=== PATIENT | male | born 1955 | race Caucasian/White ===

== ENCOUNTER → 2019-02-08 08:23 | Outpatient (CLI) | payer BC, SELFPAY ==
[2019-02-08 09:02] LABS: Add Manual Diff / Slide Review NO; Basophils Absolute Auto 0 /uL (0-100); Basophils Percent Auto 0.7 % (0-2); Eosinophils Absolute Auto 200 /uL (0-450); Eosinophils Percent Auto 3.8 % (2-4); Hematocrit 44.7 % (41-53); Hemoglobin 15.5 g/dL (13.5-17.5); Lymphocytes Absolute Auto 1900 /uL (1100-4500); Lymphocytes Percent Auto 43.8 % (25-40); Mean Corpuscular HGB Conc 34.7 % (30-36); Mean Corpuscular Hemoglobin 33.2 PG (26-34); Mean Corpuscular Volume 95.7 fL (80-100); Monocytes Absolute Auto 500 /uL (0-900); Monocytes Percent Auto 12.1 % (3-14); Neutrophils Absolute Auto 1700 /uL (1500-7000); Neutrophils Percent Auto 39.6 % (50-75); Platelet Count 189 X10^3/uL (150-400); Red Blood Cell Count 4.67 X10^6/uL (4.5-5.9); Red Cell Distribution Width 13.6 % (11.6-14.8); White Blood Cell Count 4.3 X10^3/uL (4.5-11.0)
[2019-02-08 09:03] LABS: Hemoglobin A1C% w Est Avg Glu 7.1 % (4.0-6.0)
[2019-02-08 09:27] LABS: Alanine Aminotransferase 32 IU/L (<50); Albumin 4.5 g/dL (3.5-5.0); Albumin Globulin Ratio 1.3 (1.0-2.8); Alkaline Phosphatase 74 U/L (38-126); Aspartate Aminotransferase 29 IU/L (17-59); BUN Creatinine Ratio 17.8 (6-22); Bilirubin Total 0.7 mg/dL (0.2-1.3); Blood Urea Nitrogen 16 mg/dL (9-20); Calcium 9.6 mg/dL (8.4-10.2); Carbon Dioxide 28 mmol/L (22-32); Chloride 105 mmol/L (98-107); Cholesterol 208 mg/dL (140-199); Estimated Glomerular Filt Rate > 60.0 mL/min (>60); Globulin 3.5 g/dL (1.7-4.1); Glucose 173 mg/dL (80-110); HDL Cholesterol 50 mg/dL (40-60); HEMOLYSIS < 15 (0-50); LDL Cholesterol Calculated 145 mg/dL (<100); Potassium 4.6 mmol/L (3.4-5.1); Sodium 140 mmol/L (137-145); Triglycerides 67 mg/dL (35-150)
[2019-02-11 17:46] LABS: Insulin Level Total 11.9 uIU/mL (2.0-19.6)
== END ==
PROVIDERS: PCP Naturopath; Visit Provider Naturopath
DX: Z00.00 Encounter for general adult medical examination without abnormal findings (principal); I10 Essential (primary) hypertension; E11.9 Type 2 diabetes mellitus without complications
CPT/HCPCS: 36415; 80053; 80061; 83036; 83525; 85025

== ENCOUNTER 2019-03-06 07:28 | Emergency (ER) | payer BC, SELFPAY ==
[2019-03-06 07:36] VITALS: BP 142/86; PULSE 115; RESP 16; TEMP 36.4; O2SAT 99; BMI 32.3
--- NOTE | 2019-03-06 07:40 | ED_ITS ---
HPI - Abdominal Pain General Chief Complaint: Abdominal Pain Stated Complaint: rt side pain from back to stomach Time Seen by Provider: 03/06/19 07:33 Source: patient Mode of arrival: Ambulatory Limitations: no limitations History of Present Illness HPI narrative: Patient is a 63-year-old male with history of diabetes and hypertension who presents with right upper quadrant pain ongoing for last few days. He says it started is back in radiating around to his stomach. It's not in his lower abdomen he has no groin pain no hematuria. He says the pain now is fairly constant he denies any nausea or vomiting or fevers. He intermittently gets right-sided chest pain but currently does not have right-sided chest pain. Of note his left face is drooping. He cannot tell me if this is old or new. He states that yesterday he was driving and just felt sort of funny he thought maybe was having a stroke but he had no weakness numbness tingling in his extremities. He was able to continue driving. He has not noticed that he had any sort of new left facial droop denies any headache. MD complaint: abdominal pain Pain Consistency: constant Location: RUQ Quality: sharp Radiation: none Related Data Allergies Allergy/AdvReac Type Severity Reaction Status Date / Time No Known Drug Allergies Allergy Verified 03/06/19 07:36 Review of Systems Review of Systems ROS Unobtainable: All systems reviewed & are unremarkable except as noted in HPI and below Constitutional Constitutional: Denies chills, Denies fever(s), Denies lethargy and Denies weakness Eyes Eyes: Denies change in vision, Denies eye discharge, Denies irritation and Denies loss of vision ENT Ears, Nose, Mouth, and Throat: Denies change in voice, Denies neck pain and Denies sore throat Cardiovascular Cardiovascular: Reports chest pain (Intermittent right-sided pain none now), Denies irregular heart rhythm, Denies lightheadedness and Denies dyspnea Respiratory Respiratory: Denies dyspnea Gastrointestinal Gastrointestinal: Reports as per HPI, Reports abdominal pain, Denies diarrhea, Denies nausea and Denies vomiting Genitourinary Genitourinary: Denies hematuria, Denies flank pain, Denies urinary incontinence and Denies urinary urgency Musculoskeletal Musculoskeletal: Denies neck pain Integumentary/Breasts Skin/Breast: Denies pruritus, Denies erythema, Denies rash and Denies wounds Neurologic Neurologic: Denies loss of vision and Denies weakness Patient History Medical History Diabetes (Acute) Hypertension (Acute) Social History Smoking Status: Current every day smoker Smoking Status: Current every day smoker Substance Use Type: does not use Exam Initial Vital Signs Initial Vital Signs: Vital Signs Temperature 97.6 F 03/06/19 07:36 Pulse Rate 115 H 03/06/19 07:36 Respiratory Rate 16 03/06/19 07:36 Blood Pressure 142/86 H 03/06/19 07:36 Pulse Oximetry 99 03/06/19 07:36 GENERAL: Well-appearing, well-nourished and in no acute distress. HEENT: Head atraumatic,EOMI, pupils reactive, left facial droop-mild CARDIOVASCULAR: Regular rate and rhythm without murmurs, rubs or gallops. RESPIRATORY: Breath sounds equal bilaterally, no wheezes rales or rhonchi. ABDOMEN: Soft, tender right upper quadrant negative Sherman sign no guarding no rebound : No CVA tenderness EXTREMITIES: Normal range of motion, no clubbing or edema. Neurovascularly intact NEUROLOGICAL: Alert and oriented x4.Normal gait and speech. Cranial nerves II through XII grossly intact. Good [id number], good [id number], strength equal bilaterally, no dysarthria or aphasia, sensation in tact to soft touch bilaterally, no visual changes, no facial droop SKIN: Warm, dry, no laceration, no petechiae, no rashes or lesions. Scores NIH Stroke Scale Level of Conciousness: Alert, keenly responsive Ask month/age: Answers both questions correctly. Open/close eyes, close hand: Performs both tasks correctly Best gaze horizontal: Normal Visual singh: No visual loss Facial palsy: Minor paralysis, flattened nasolabial fold, asymmetry on smiling Left arm drift: No drift for full 10 sec Right arm drift: No drift for full 10 sec Left leg drift: No drift for full 10 sec Right leg drift: No drift for full 10 sec Limb ataxia: Absent Sensory on face/arms/legs: Normal, no sensory loss Best language: No aphasia, normal Dysarthria: Normal Extinction or inattention: No abnormality Total NIH Stroke scale score: 1 Course Orders Ordered: ED Orders 03/06/19 07:47 CT head/brain wo con Stat US abdomen limited Stat 03/06/19 07:48 XR chest 1V Stat EKG-12 Lead Stat 03/06/19 08:05 Complete Blood Count AUTO DIFF Stat Comprehensive Metabolic Panel Stat Lipase Stat Troponin & CK Cardiac Panel Stat 03/06/19 09:23 CT chest abd pel w con Stat Discontinued Medications Aspirin (Aspirin Chew) 324 mg PO NOW ONE Stop: 03/06/19 07:48 Last Admin: 03/06/19 07:55 Dose: 324 mg Documented by: YANCY Sodium Chloride (Normal Saline 0.9%) 1,000 mls @ 150 mls/hr IV CONT CINDI Last Admin: 03/06/19 07:56 Dose: 150 mls/hr Documented by: YANCY Ketorolac Tromethamine (Toradol) 15 mg IV NOW ONE Stop: 03/06/19 08:56 Vital Signs Vital signs: Vital Signs - 8 hr 03/06/19 07:36 03/06/19 08:24 03/06/19 10:00 Temperature 97.6 F Pulse Rate 115 H 104 H 97 H Respiratory Rate 16 20 20 Blood Pressure 142/86 H Blood Pressure [Right Arm] 105/64 133/89 Pulse Oximetry 99 98 100 MDM - Abdominal Pain Lab Data Attestation: I reviewed the patient's lab results. Result diagrams: 03/06/19 08:05 03/06/19 08:05 Labs: Lab Results 03/06/19 03/06/19 Range/Units 08:05 08:05 WBC 4.6 (4.5-11.0) X10^3/uL RBC 4.54 (4.5-5.9) X10^6/uL Hgb 15.0 (13.5-17.5) g/dL Hct 43.2 (41-53) % MCV 95.3 (80-100) fL MCH 33.1 (26-34) PG MCHC 34.7 (30-36) % RDW 13.2 (11.6-14.8) % Plt Count 212 (150-400) X10^3/uL Neut % (Auto) 39.4 L (50-75) % Lymph % (Auto) 44.3 H (25-40) % Catron % (Auto) 11.2 (3-14) % Eos % (Auto) 4.3 H (2-4) % Baso % (Auto) 0.8 (0-2) % Neut # (Auto) 1800 (5785-4299) /uL Lymph # (Auto) 2100 (3275-3435) /uL Catron # (Auto) 500 (0-900) /uL Eos # (Auto) 200 (0-450) /uL Baso # (Auto) 0 (0-100) /uL Sodium 139 (137-145) mmol/L Potassium 4.1 (3.4-5.1) mmol/L Chloride 101 (98-107) mmol/L Carbon Dioxide 28 (22-32) mmol/L BUN 17 (9-20) mg/dL Creatinine 1.00 (0.66-1.25) mg/dL Estimated GFR > 60.0 (>60) mL/min BUN/Creatinine Ratio 17.0 (6-22) Glucose 238 H (80-110) mg/dL Calcium 9.5 (8.4-10.2) mg/dL Total Bilirubin 0.4 (0.2-1.3) mg/dL AST 28 (17-59) IU/L ALT 28 (<50) IU/L Alkaline Phosphatase 70 (38-126) U/L Total Creatine Kinase 50 L (55-170) U/L CK-MB (CK-2) TNP CK-MB (CK-2) Rel Index TNP Troponin I < 0.012 (0.01-0.034) ng/mL Total Protein 7.5 (6.3-8.2) g/dL Albumin 4.4 (3.5-5.0) g/dL Globulin 3.1 (1.7-4.1) g/dL Albumin/Globulin Ratio 1.4 (1.0-2.8) Lipase 154 (23-300) U/L Point of care testing: Urine Dip Bedside Urine Glucose 1000 mg/dl Bedside Urine Ketone - Negative Urine Specific [place] 1.015 Bedside Urine Occult Blood - Negative Bedside Urine pH 6.5 Bedside Urine Protein +/- 15 Bedside Urine Urobilinogen +/- 1mg Bedside Urine Nitrite - Negative Bedside Urine Leukocytes - Negative Esterase Imaging Data US - abdomen: Radiologist's impression: PROCEDURE: US ABDOMEN LIMITED INDICATIONS: RIGHT UPPER QUADRANT PAIN TECHNIQUE: Real-time scanning was performed of the abdominal and retroperitoneal organs, with image documentation. COMPARISON: None. FINDINGS: Liver: The liver measures 16.8 cm in length and demonstrates increased echogenicity. Gallbladder: The gallbladder wall measures 2.2 mm in diameter. The gallbladder is mildly contracted. No pericholecystic fluid or sonographic Sherman's sign. Biliary ducts: Intrahepatic bile ducts are non-dilated. Extrahepatic bile duct caliber measures 3.2 mm. Normal is 6-7 mm or less in diameter, or 10 mm or less post-cholecystectomy. Pancreas: Pancreas is nonvisualized due to overlying bowel gas. IMPRESSION: 1. Contracted gallbladder. No cholelithiasis or findings to suggest choledocholithiasis or acute cholecystitis. 2. Increased hepatic echogenicity noted likely related to fatty infiltration of the liver but other sources of hepatocellular disease cannot be excluded. Dictated by: Priscilla Baez M.D. on 03/06/2019 at 8:30 Approved by: Priscilla Baez M.D. on 03/06/2019 at 8:3 Chest x-ray: Radiologist's impression: Interstitial prominence, suspect prior smoking history. Possible lung mass right lung base measuring 2.3 by would 3.1 cm deep inspiratory PA and lateral chest plain film is recommended for more accurate assessment. Follow-up CT scanning with contrast may become necessary depending on that study CT scan - abdomen: Radiologist's impression: PROCEDURE: CT CHEST ABD PEL W CON INDICATIONS: mass right lung and right sided ab pain TECHNIQUE: After the administration of intravenous contrast, 5 mm thick sections acquired from the lung apices to the symphysis. 5 mm coronal and sagittal reformats were performed, with additional 7 mm MIP reformats through the lungs. For radiation dose reduction, the following was used: automated exposure control, adjustment of mA and/or kV according to patient size. COMPARISON: None. FINDINGS: Image quality: Excellent. CHEST: Lungs and pleura: Postoperative changes are present within the right upper lobe. A 1.1 cm pulmonary nodule is present at the medial right lung base (series 3, image [id number] 37). Multiple subcentimeter intra-fissural nodules are present within the right oblique fissure. There is a small low density right pleural effusion. Mediastinum: Heart size is normal. No pericardial effusion. No mediastinal or hilar adenopathy by size criteria. Thoracic aorta and central pulmonary arteries are normal in size. Scattered atheromatous calcifications are present within the aortic arch. Esophagus is normal in caliber. No hiatal hernia. Chest wall: No axillary or supraclavicular adenopathy by size criteria. Thyroid gland is unremarkable. ABDOMEN: Solid organs: Liver is normal in size and enhancement. Gallbladder is unremarkable. Biliary system is non dilated. Pancreas enhances normally. Spleen is normal in size and enhancement. No right adrenal nodules. There is a small intermediate density left adrenal gland nodule which is incompletely characterized. Kidneys demonstrate normal size and enhancement, without hydronephrosis. Peritoneum and bowel: Bowel loops demonstrate normal wall thickness and caliber. The appendix is not visualized; however there is no discrete right lower quadrant fluid or fat stranding to suggest acute appendicitis. There are scattered sigmoid diverticula. No evidence for diverticulitis. No free fluid or air. Nodes and vessels: No retroperitoneal or mesenteric adenopathy by size criteria. Aorta and inferior vena cava are normal in size. There are scattered atheromatous calcifications throughout the aorta and iliac arteries bilaterally. Miscellaneous: No ventral hernias. PELVIS: Genitourinary: Bladder wall thickness is normal. Miscellaneous: No inguinal adenopathy. There is a small fat containing left inguinal hernia. Bones: No suspicious bony lesions. No vertebral body compression fractures. IMPRESSION: 1. Right pulmonary nodules as above. No prior comparisons are available at the time of this dictation to characterize the acuity of these findings. If prior CTs are available, comparison could be made and an addendum could be issued. Neoplasm cannot be excluded. 2. Small right pleural effusion. 3. No acute intra-abdominal findings. The appendix is not visualized; however there are no ancillary signs to suggest acute appendicitis. Diverticulosis. No acute diverticulitis. Dictated by: Priscilla Baez M.D. on 03/06/2019 at 9:20 ECG Data Attestation: I personally reviewed and interpreted this ECG as follows: Prior ECG tracings: not available for review Interpretation: Sinus rhythm rate [address] elevation depression or T-wave inversion Q-wave noted in lead 3 only no priors to compare MDM Narrative Medical decision making narrative: The patient is noted to have pulmonary nodules are he will need outpatient follow-up no cause of abdominal pain noted t beryl. He does have left-sided droop possibly new, he did remember having left leg tingling at the time all completely resolved. Possible TIA. Recommend aspirin 81 mg daily. No cause of abdominal pain is identified on ultrasound or CT. Initial chest x- ray did show questionable lung mass however CT did not show a mass but did show pulmonary nodules. At this time I strongly recommend that patient follow-up with his PCP. Overall his abdominal pain is better after aspirin and. Discharge Plan Departure Patient Disposition: Home Clinical Impression: Brain TIA, Multiple pulmonary nodules Abdominal pain Qualifiers: Abdominal location: right upper quadrant Qualified Code(s): R10.11 - Right upper quadrant pain Discharge Date/Time: 03/06/19 11:08 Instructions: DI for Transient Ischemic Attack, DI for Abdominal Pain-Adult Activity Restrictions/Additional Instructions: *You have been diagnosed with abdominal pain, pulmonary nodule possible mini- stroke called TIA *What to do: At this time it is unknown what is causing her abdominal pain. Ultrasound and CT were negative. You were incidentally found to have pulmonary nodules in year old switch need to be followed with your primary care provider. He may require further testing and this may or may not be the cause of your right-sided chest pain. You also may have had a mini stroke yesterday. You may also require further outpatient testing such as MRI and carotid Dopplers along with echocardiogram please see your primary care provider in regards to this test *Continue to take medications as directed Aspirin 81 mg once a day-this is to help prevent stroke and heart attack *Follow up with your primary care provider in 2-3 days *Return to ER if you should have increasing weakness, facial droop difficulty speaking numbness tingling, chest pain shortness of breath abdominal pain or any new, worsening or concerning symptoms Referrals: Rocío Herbert ND [Primary Care Provider] -
--- NOTE | 2019-03-06 07:47 | DI.US.S_ITS ---
PROCEDURE: US ABDOMEN LIMITED INDICATIONS: RIGHT UPPER QUADRANT PAIN TECHNIQUE: Real-time scanning was performed of the abdominal and retroperitoneal organs, with image documentation. COMPARISON: None. FINDINGS: Liver: The liver measures 16.8 cm in length and demonstrates increased echogenicity. Gallbladder: The gallbladder wall measures 2.2 mm in diameter. The gallbladder is mildly contracted. No pericholecystic fluid or sonographic Sherman's sign. Biliary ducts: Intrahepatic bile ducts are non-dilated. Extrahepatic bile duct caliber measures 3.2 mm. Normal is 6-7 mm or less in diameter, or 10 mm or less post-cholecystectomy. Pancreas: Pancreas is nonvisualized due to overlying bowel gas. IMPRESSION: 1. Contracted gallbladder. No cholelithiasis or findings to suggest choledocholithiasis or acute cholecystitis. 2. Increased hepatic echogenicity noted likely related to fatty infiltration of the liver but other sources of hepatocellular disease cannot be excluded. Dictated by: Priscilla Baez M.D. on 03/06/2019 at 8:30 Approved by: Priscilla Baez M.D. on 03/06/2019 at 8:31
--- NOTE | 2019-03-06 07:47 | DI.CT.S_ITS ---
PROCEDURE: CT HEAD/BRAIN WO CON INDICATIONS: left facial droop, non tpa TECHNIQUE: Noncontrast 4.5 mm thick angled axial sections acquired from the foramen magnum to the vertex, with coronal and sagittal reformats. For radiation dose reduction, the following was used: automated exposure control, adjustment of mA and/or kV according to patient size. COMPARISON: None. FINDINGS: Image quality: Excellent. CSF spaces: Basal cisterns are patent. No extra-axial fluid collections. Ventricles are normal in size and shape. Brain: No midline shift. No intracranial masses or hemorrhage. Davidson-white matter interface is normal. Skull and face: Calvarium and visualized facial bones are intact, without suspicious lesions. Sinuses: Visualized sinuses and mastoids are clear. IMPRESSION: 1. No acute intracranial findings. Dictated by: Priscilla Baez M.D. on 03/06/2019 at 7:26 Approved by: Priscilla Baez M.D. on 03/06/2019 at 7:28
--- NOTE | 2019-03-06 07:48 | DI.RAD.S_ITS ---
PROCEDURE: XR CHEST 1V INDICATIONS: right sided chest pain TECHNIQUE: One view of the chest was acquired. COMPARISON: None. FINDINGS: Surgical changes and devices: None. Lungs and pleura: Lungs are abnormal with a generalized interstitial prominence perhaps reflecting a smoking history and the inferior border of the lower third of the right hilum there is a radiodensity of concern measuring 2.3 x 3.1 cm, potentially a lung mass.. No pleural effusions or pneumothorax. Mediastinum: Mediastinal contours appear normal. Heart size is normal. Bones and chest wall: No suspicious bony lesions. Overlying soft tissues appear unremarkable. IMPRESSION: Interstitial prominence, suspect prior smoking history. Possible lung mass right lung base measuring 2.3 x 3.1 cm. Deep inspiratory PA and lateral chest plain film is recommended for more accurate assessment. Followup CT scanning with contrast may become necessary depending on that study. Dictated by: Eduardo Ingram M.D. on 03/06/2019 at 9:09 Approved by: Eduardo Ingram M.D. on 03/06/2019 at 9:10
[2019-03-06] MEDS: ASPIRIN 81 MG CHEW TAB 324 MG PO (07:55)
[2019-03-06] MEDS: SODIUM CHLORIDE 0.9% 1,000 ML 150 ML IV (07:56)
[2019-03-06 08:17] LABS: Add Manual Diff / Slide Review NO; Basophils Absolute Auto 0 /uL (0-100); Basophils Percent Auto 0.8 % (0-2); Eosinophils Absolute Auto 200 /uL (0-450); Eosinophils Percent Auto 4.3 % (2-4); Hematocrit 43.2 % (41-53); Lymphocytes Absolute Auto 2100 /uL (1100-4500); Lymphocytes Percent Auto 44.3 % (25-40); Mean Corpuscular HGB Conc 34.7 % (30-36); Mean Corpuscular Hemoglobin 33.1 PG (26-34); Mean Corpuscular Volume 95.3 fL (80-100); Monocytes Absolute Auto 500 /uL (0-900); Monocytes Percent Auto 11.2 % (3-14); Neutrophils Absolute Auto 1800 /uL (1500-7000); Neutrophils Percent Auto 39.4 % (50-75); Platelet Count 212 X10^3/uL (150-400); Red Blood Cell Count 4.54 X10^6/uL (4.5-5.9); Red Cell Distribution Width 13.2 % (11.6-14.8); White Blood Cell Count 4.6 X10^3/uL (4.5-11.0)
[2019-03-06 08:24] VITALS: BP 105/64; PULSE 104; RESP 20; O2SAT 98
[2019-03-06 08:27] LABS: Alanine Aminotransferase 28 IU/L (<50); Albumin 4.4 g/dL (3.5-5.0); Albumin Globulin Ratio 1.4 (1.0-2.8); Alkaline Phosphatase 70 U/L (38-126); Aspartate Aminotransferase 28 IU/L (17-59); Bilirubin Total 0.4 mg/dL (0.2-1.3); Blood Urea Nitrogen 17 mg/dL (9-20); Calcium 9.5 mg/dL (8.4-10.2); Carbon Dioxide 28 mmol/L (22-32); Chloride 101 mmol/L (98-107); Creatine Kinase 50 U/L (55-170); Estimated Glomerular Filt Rate > 60.0 mL/min (>60); Globulin 3.1 g/dL (1.7-4.1); Glucose 238 mg/dL (80-110); HEMOLYSIS 23 (0-50); Lipase 154 U/L (23-300); Potassium 4.1 mmol/L (3.4-5.1); Sodium 139 mmol/L (137-145); Total Protein 7.5 g/dL (6.3-8.2)
[2019-03-06 08:39] LABS: Troponin I < 0.012 ng/mL (0.01-0.034)
--- NOTE | 2019-03-06 09:23 | DI.CT.S_ITS ---
PROCEDURE: CT CHEST ABD PEL W CON INDICATIONS: mass right lung and right sided ab pain TECHNIQUE: After the administration of intravenous contrast, 5 mm thick sections acquired from the lung apices to the symphysis. 5 mm coronal and sagittal reformats were performed, with additional 7 mm MIP reformats through the lungs. For radiation dose reduction, the following was used: automated exposure control, adjustment of mA and/or kV according to patient size. COMPARISON: None. FINDINGS: Image quality: Excellent. CHEST: Lungs and pleura: Postoperative changes are present within the right upper lobe. A 1.1 cm pulmonary nodule is present at the medial right lung base (series 3, image [id number]). Multiple subcentimeter intra-fissural nodules are present within the right oblique fissure. There is a small low density right pleural effusion. Mediastinum: Heart size is normal. No pericardial effusion. No mediastinal or hilar adenopathy by size criteria. Thoracic aorta and central pulmonary arteries are normal in size. Scattered atheromatous calcifications are present within the aortic arch. Esophagus is normal in caliber. No hiatal hernia. Chest wall: No axillary or supraclavicular adenopathy by size criteria. Thyroid gland is unremarkable. ABDOMEN: Solid organs: Liver is normal in size and enhancement. Gallbladder is unremarkable. Biliary system is non dilated. Pancreas enhances normally. Spleen is normal in size and enhancement. No right adrenal nodules. There is a small intermediate density left adrenal gland nodule which is incompletely characterized. Kidneys demonstrate normal size and enhancement, without hydronephrosis. Peritoneum and bowel: Bowel loops demonstrate normal wall thickness and caliber. The appendix is not visualized; however there is no discrete right lower quadrant fluid or fat stranding to suggest acute appendicitis. There are scattered sigmoid diverticula. No evidence for diverticulitis. No free fluid or air. Nodes and vessels: No retroperitoneal or mesenteric adenopathy by size criteria. Aorta and inferior vena cava are normal in size. There are scattered atheromatous calcifications throughout the aorta and iliac arteries bilaterally. Miscellaneous: No ventral hernias. PELVIS: Genitourinary: Bladder wall thickness is normal. Miscellaneous: No inguinal adenopathy. There is a small fat containing left inguinal hernia. Bones: No suspicious bony lesions. No vertebral body compression fractures. IMPRESSION: 1. Right pulmonary nodules as above. No prior comparisons are available at the time of this dictation to characterize the acuity of these findings. If prior CTs are available, comparison could be made and an addendum could be issued. Neoplasm cannot be excluded. 2. Small right pleural effusion. 3. No acute intra-abdominal findings. The appendix is not visualized; however there are no ancillary signs to suggest acute appendicitis. Diverticulosis. No acute diverticulitis. Dictated by: Priscilla Baez M.D. on 03/06/2019 at 9:20 Approved by: Priscilla Baez M.D. on 03/06/2019 at 9:26
[2019-03-06 10:00] VITALS: BP 133/89; PULSE 97; RESP 20; O2SAT 100
--- NOTE | 2019-05-06 22:24 | PC.NURSE ---
Late Entry: NS 150 mL / hr started at [id number] hrs ended 1107 upon discharge. No ill effect.
== END 2019-03-06 11:08 | disposition home or self-care (01) ==
PROVIDERS: Emergency Provider Emergency Medicine; PCP Naturopath
DX: G45.9 Transient cerebral ischemic attack, unspecified (principal); R10.11 Right upper quadrant pain; R91.8 Other nonspecific abnormal finding of lung field
CPT/HCPCS: 36415; 70450; 71045; 71260; 74177; 76705; 80053; 81003; 82550; 83690; 84484; 85025; 93005; 99285; Q9967

== ENCOUNTER → 2019-04-27 07:57 | Outpatient (CLI) | payer BC, SELFPAY ==
[2019-04-27 09:23] LABS: Add Manual Diff / Slide Review NO; Basophils Absolute Auto 0 /uL (0-100); Basophils Percent Auto 0.8 % (0-2); Eosinophils Absolute Auto 200 /uL (0-450); Eosinophils Percent Auto 4.2 % (2-4); Hematocrit 41.9 % (41-53); Hemoglobin 14.5 g/dL (13.5-17.5); Lymphocytes Absolute Auto 1800 /uL (1100-4500); Lymphocytes Percent Auto 35.5 % (25-40); Mean Corpuscular HGB Conc 34.7 % (30-36); Mean Corpuscular Hemoglobin 32.9 PG (26-34); Monocytes Absolute Auto 600 /uL (0-900); Monocytes Percent Auto 11.6 % (3-14); Neutrophils Absolute Auto 2400 /uL (1500-7000); Neutrophils Percent Auto 47.9 % (50-75); Platelet Count 232 X10^3/uL (150-400); Red Blood Cell Count 4.41 X10^6/uL (4.5-5.9); Red Cell Distribution Width 13.3 % (11.6-14.8); White Blood Cell Count 5.1 X10^3/uL (4.5-11.0)
[2019-04-27 09:53] LABS: Alanine Aminotransferase 34 IU/L (<50); Albumin 4.4 g/dL (3.5-5.0); Albumin Globulin Ratio 1.3 (1.0-2.8); Alkaline Phosphatase 58 U/L (38-126); Aspartate Aminotransferase 27 IU/L (17-59); BUN Creatinine Ratio 18.8 (6-22); Bilirubin Total 0.5 mg/dL (0.2-1.3); Blood Urea Nitrogen 15 mg/dL (9-20); Calcium 9.8 mg/dL (8.4-10.2); Carbon Dioxide 24 mmol/L (22-32); Chloride 106 mmol/L (98-107); Estimated Glomerular Filt Rate > 60.0 mL/min (>60); Globulin 3.5 g/dL (1.7-4.1); Glucose 149 mg/dL (80-110); HEMOLYSIS < 15 (0-50); Potassium 4.2 mmol/L (3.4-5.1); Sodium 141 mmol/L (137-145); Total Protein 7.9 g/dL (6.3-8.2)
== END ==
PROVIDERS: PCP Naturopath; Referring Provider Thoracic Surgery (Cardiothoracic Vascular Surgery); Visit Provider Thoracic Surgery (Cardiothoracic Vascular Surgery)
DX: R91.1 Solitary pulmonary nodule (principal)
CPT/HCPCS: 36415; 80053; 85025; 93005

== ENCOUNTER → 2019-05-13 08:17 | Outpatient (CLI) | payer BC, SELFPAY ==
--- NOTE | 2019-05-13 08:18 | DI.MRI.S_ITS ---
PROCEDURE: MR HEAD/BRAIN WO/W CON INDICATIONS: metastatic lung cancer TECHNIQUE: Noncontrast axial T1 spin echo, axial T2 fast spin echo, sagittal and axial FLAIR, coronal T2 fast spin echo, axial gradient echo, axial diffusion and ADC through the brain. After the administration of contrast, axial and coronal T1 spin echo with fat saturation through the brain. COMPARISON: [facility], CT, CT HEAD/BRAIN WO CON, 03/06/2019, 7:59. FINDINGS: Image quality: Excellent. CSF spaces: Basal cisterns are patent. No extra-axial fluid collections. Ventricles are normal in size and shape. Brain: No midline shift. No intracranial bleeds or masses. No abnormal intracranial enhancement. There is cerebral volume loss for age. There is periventricular white matter chronic small vessel ischemic change. The brainstem appears normal. Diffusion-weighted images demonstrate no acute ischemic insults. No chronic ischemic insults. Normal intravascular flow voids are present. Skull and face: Calvarial marrow is normal in signal. Orbits appear normal. Sinuses: Sinuses and mastoids appear clear. IMPRESSION: 1. No acute intracranial process. No visualized metastatic disease. 2. Minimal atrophy and chronic microvascular ischemic changes. Dictated by: Zaira Kelley M.D. on 05/13/2019 at 11:58 Approved by: Zaira Kelley M.D. on 05/13/2019 at 12:02
== END ==
PROVIDERS: PCP Naturopath; Referring Provider Internal Medicine Hematology & Oncology; Visit Provider Internal Medicine Hematology & Oncology
DX: C34.91 Malignant neoplasm of unspecified part of right bronchus or lung (principal); R91.1 Solitary pulmonary nodule
CPT/HCPCS: 70553

== ENCOUNTER → 2019-05-17 10:39 | Outpatient (CLI) | payer BC, SELFPAY ==
--- NOTE | 2019-05-17 | DI.RAD.S_ITS ---
PROCEDURE: XR CHEST 2V INDICATIONS: Right lower lobe pulmonary nodule TECHNIQUE: 2 views of the chest were acquired. COMPARISON: [facility], CR, XR CHEST 1 VIEW, 05/02/2019, 13:08. [facility], CR, XR CHEST 2 VIEWS, 04/26/2019, 9:52. Located Within [facility], CT, CT CHEST ABD PEL W CON, 03/06/2019, 9:49. [facility], CR, XR CHEST 1 VIEW, 05/03/2019, 5:59. [facility], CR, XR CHEST 2 VIEWS, 05/03/2019, 11:17. Located Within [facility], CR, XR CHEST 1V, 03/06/2019, 8:12. FINDINGS: Surgical changes and devices: None. Lungs and pleura: Scattered subsegmental atelectasis and/or scarring. No focal consolidation. No pneumothorax identified. Small right pleural effusion with adjacent atelectasis, which is progressed since 05/03/19. Interval resolution of right chest wall gas.. Mediastinum: Mediastinal contours are normal. Heart size is normal. Bones and chest wall: No suspicious bony abnormalities. Soft tissues appear unremarkable. IMPRESSION: Interval progression of small right pleural effusion with adjacent atelectasis. No pneumothorax. Interval resolution of right chest wall soft tissue gas. Dictated by: Bob Alcocer M.D. on 05/17/2019 at 13:05 Approved by: Bob Alcocer M.D. on 05/17/2019 at 13:09
== END ==
PROVIDERS: PCP Naturopath; Referring Provider Thoracic Surgery (Cardiothoracic Vascular Surgery); Visit Provider Thoracic Surgery (Cardiothoracic Vascular Surgery)
DX: R91.1 Solitary pulmonary nodule (principal); J90 Pleural effusion, not elsewhere classified; J98.11 Atelectasis
CPT/HCPCS: 71046

== ENCOUNTER → 2019-08-15 13:15 | Outpatient (CLI) | payer BC, SELFPAY ==
--- NOTE | 2019-08-15 13:16 | DI.CT.S_ITS ---
PROCEDURE: CT CHEST ABDOMEN W CON INDICATIONS: Adenocarcinoma of right lung, stage IV, staging. TECHNIQUE: After the administration of oral contrast and intravenous contrast, 5 mm thick sections acquired from the lung apices to the iliac crests. 5 mm coronal and sagittal reformats were performed, with additional 7 mm coronal MIP reformats through the lungs. For radiation dose reduction, the following was used: automated exposure control, adjustment of mA and/or kV according to patient size. COMPARISON: [facility], CR, XR CHEST 1 VIEW, 05/30/2019, 15:03. [facility], CR, XR CHEST 2V, 05/17/2019, 10:42. [facility], MR, MR HEAD/BRAIN WO/W CON, 05/13/2019, 8:29. [facility], CR, XR CHEST 2 VIEWS, 04/26/2019, 9:52. [facility], CT, CT CHEST ABD PEL W CON, 03/06/2019, 9:49. FINDINGS: Image quality: Excellent. CHEST: Lungs and pleura: No definite acute air space opacities. There is a small right-sided exudative pleural effusions with mild pleural thickening and enhancement that extends to a small degree above the area of the fluid and is present as a subtle pleural thickening pattern that extends virtually to the lung apex.. Central and peripheral airways are patent and normal in caliber. Mediastinum: Heart size is normal. No pericardial effusion. No mediastinal or hilar adenopathy by size criteria. Thoracic aorta and central pulmonary arteries are normal in size. Esophagus is normal in caliber. No hiatal hernia. Port-A-Cath from right sided approach extends in normal position into the distal SVC Chest wall: No axillary or supraclavicular adenopathy by size criteria. Thyroid gland appears normal. ABDOMEN: Solid organs: Liver is normal in size and enhancement. Gallbladder appears normal. Biliary system is non dilated. Pancreas enhances normally. Spleen is normal in size and enhancement. No adrenal nodules on the right but there is a small stable appearing left adrenal nodule which measures up to approximately 1.9 x 1.5 cm. Kidneys are normal in size and enhancement, without hydronephrosis. Peritoneum and bowel: Bowel loops demonstrate normal wall thickness and caliber. No free fluid or air. Nodes and vessels: No retroperitoneal or mesenteric adenopathy by size criteria. Aorta and inferior vena cava are normal in caliber. Bones: No suspicious bony lesions. No vertebral body compression fractures. Miscellaneous: No ventral hernias. IMPRESSION: Small right-sided exudative pleural effusion with mild pleural thickening and enhancement consistent with pleural carcinomatosis in this clinical circumstance. Note is again made of a small left adrenal nodule which is worrisome for representing adrenal metastatic disease despite its small size of approximately 1.9 x 1.5 cm. Dedicated adrenal adenoma versus carcinoma MR protocol scan may be warranted, without contrast, for more accurate characterization. This may also be accurately visualize by nuclear medicine PET CT scanning. Dictated by: Eduardo Ingram M.D. on 08/15/2019 at 15:29 Approved by: Eduardo Ingram M.D. on 08/15/2019 at 15:38
== END ==
PROVIDERS: PCP Naturopath; Referring Provider Internal Medicine Hematology & Oncology; Visit Provider Internal Medicine Hematology & Oncology
DX: C34.91 Malignant neoplasm of unspecified part of right bronchus or lung (principal); J90 Pleural effusion, not elsewhere classified; E27.9 Disorder of adrenal gland, unspecified
CPT/HCPCS: 71260; 74160; Q9967

== ENCOUNTER → 2019-09-30 08:57 | Outpatient (CLI) | payer BC, SELFPAY ==
--- NOTE | 2019-09-30 08:58 | DI.CT.S_ITS ---
PROCEDURE: CT CHEST ABDOMEN W CON INDICATIONS: Lung cancer; on Keytruda. Pain. TECHNIQUE: After the administration of intravenous and oral contrast, 5 mm thick sections acquired from the lung apices to the iliac crests. 5 mm coronal and sagittal reformats were performed, with additional 7 mm coronal MIP reformats through the lungs. For radiation dose reduction, the following was used: automated exposure control, adjustment of mA and/or kV according to patient size. COMPARISON: CT chest/abdomen dated 08/15/2019 performed at [facility]. FINDINGS: Image quality: Excellent. CHEST: Lungs and pleura: A small right pleural effusion is again seen as well as mild slightly nodular thickening of the pleura surrounding the effusion and throughout the majority of the right hemithorax that does not appear significantly changed when compared to the prior CT from 08/15/2019. There is stable mild pleural parenchymal scarring at the right lung apex. No definite acute consolidation is seen. There is no pneumothorax. Central and peripheral airways appear patent and normal in caliber. Mediastinum: Heart size is normal. No pericardial effusion. No mediastinal or hilar adenopathy by size criteria. Thoracic aorta and central pulmonary arteries are normal in size. Esophagus is normal in caliber. No hiatal hernia. A right chest wall port is again seen with the distal tip in stable position. Chest wall: No axillary or supraclavicular adenopathy by size criteria. Thyroid appears normal. ABDOMEN: Solid organs: There is diffuse hepatic steatosis. An 8 x 6 mm hypodense lesion in hepatic segment 2/3 is stable in size compared to the CT from 08/15/2019. This lesion is too small to characterize and may represent a cyst versus less likely a solid mass. Gallbladder appears normal. Biliary system is non dilated. Pancreas enhances normally. Spleen is normal in size and enhancement. A left adrenal nodule measuring up to 1.5 cm has not significantly changed in size when compared to the prior CT from 08/15/2019. The right adrenal appears normal. Kidneys demonstrate normal size and enhancement, without hydronephrosis. Peritoneum and bowel: Scattered diverticula are seen in the imaged portion of the colon without signs of acute diverticulitis. Bowel loops demonstrate normal wall thickness and caliber. No free fluid or air. Nodes and vessels: No retroperitoneal or mesenteric adenopathy by size criteria. Aorta and inferior vena cava are normal in size. Bones: No suspicious bony lesions. No vertebral body compression fractures degenerative changes are seen in the visualized spine. Miscellaneous: No ventral hernias. IMPRESSION: 1. Stable small right pleural effusion with unchanged mild pleural thickening and enhancement when compared to the prior CT from 08/15/2019, again suspicious for pleural carcinomatosis. 2. Stable indeterminate left adrenal nodule. A dedicated adrenal MR may be obtained to differentiate between a benign adenoma and a metastasis if clinically indicated. 3. Colonic diverticulosis without signs of acute diverticulitis. Dictated by: Cj Mendes M.D. on 09/30/2019 at 10:49 Approved by: Cj Mendes M.D. on 09/30/2019 at 11:29
== END ==
PROVIDERS: PCP Naturopath; Referring Provider Internal Medicine; Visit Provider Internal Medicine
DX: C34.91 Malignant neoplasm of unspecified part of right bronchus or lung (principal); R52 Pain, unspecified; J90 Pleural effusion, not elsewhere classified; K76.0 Fatty (change of) liver, not elsewhere classified; E27.9 Disorder of adrenal gland, unspecified; K57.90 Diverticulosis of intestine, part unspecified, without perforation or abscess without bleeding
CPT/HCPCS: 71260; 74160; Q9967

== ENCOUNTER 2019-10-19 02:11 | Observation (INO) | payer BC, SELFPAY ==
[2019-10-19] VITALS (24 sets, daily range): BP systolic 72–124; BP diastolic 50–76; PULSE 87–130; RESP 11–29; TEMP 36.7–38.1; O2SAT 96–100; BMI 32.3; BMI 33.2
--- NOTE | 2019-10-19 02:14 | ED.HA ---
HPI - Headache General Chief Complaint: Fever Stated Complaint: headache,body aches, is cancer pt, new meds Time Seen by Provider: 10/19/19 02:14 Source: patient and family Mode of arrival: Ambulatory Limitations: no limitations History of Present Illness HPI Narrative: 64-year-old male former smoker with history of lung cancer, diabetes hypertension presents with his in the chief complaint of 3-4 days of gradually worsening subjective fever, body aches, shaking chills persistent nausea and headache. He has not had chemotherapy and quite some time but has been receiving IV infusions of Keytruda every 3 weeks. On October 05 he had 400 mg, which is the 1st time he has had a double dose. Patient denies any runny nose, sore throat. He denies neck pain or other meningeal signs. He denies CP or SOB. He has had some alternating constipation and diarrhea. He does admit to having some discomfort with urination and perhaps some frequency. He denies any sick contacts, particularly with any persons known to be positive for COVID 19 MD Complaint: headache Onset (ago): day(s) Onset description: gradual Severity: mild Quality: aching Treatments prior to arrival: acetaminophen Related Data Home Medications Medication Instructions Recorded Confirmed lisinopril 10 mg PO DAILY 04/05/19 08/16/19 metformin 1,000 mg PO BID 04/05/19 08/16/19 gabapentin 300 mg PO BID 05/31/19 08/16/19 tramadol 50 mg PO Q6H PRN 05/31/19 08/16/19 Allergies Allergy/AdvReac Type Severity Reaction Status Date / Time hydrocodone Allergy ITCHING Verified 05/16/19 09:01 Review of Systems Constitutional Constitutional: Reports chills, Denies fatigue, Reports fever(s), Denies frequent falls, Reports headache(s), Denies lethargy and Denies weakness Eyes Eyes: Denies change in vision, Denies eye discharge, Denies irritation and Denies loss of vision ENT Ears, Nose, Mouth, and Throat: Denies change in voice, Denies dizziness, Reports headache(s), Denies neck pain, Denies sore throat and Denies throat swelling Cardiovascular Cardiovascular: Denies chest pain, Denies irregular heart rhythm, Denies lightheadedness, Denies palpitations, Denies dyspnea, Denies dyspnea on exertion and Denies orthopnea Respiratory Respiratory: Denies cough, Denies dyspnea, Denies dyspnea on exertion and Denies wheezing Gastrointestinal Gastrointestinal: Denies abdominal pain, Denies change in bowel habits, Denies diarrhea, Reports nausea and Denies vomiting Musculoskeletal Musculoskeletal: Denies neck pain and Denies numbness Integumentary/Breasts Skin/Breast: Denies pruritus, Denies erythema, Denies rash and Denies wounds Neurologic Neurologic: Denies behavioral changes, Denies confusion, Denies dizziness, Denies frequent falls, Reports headache(s), Denies loss of vision, Denies numbness and Denies weakness Psychiatric Psychiatric: Denies anxiety, Denies behavioral changes, Denies confusion, Denies depression, Denies homicidal ideation and Denies suicidal ideation Endocrine Endocrine: Denies fatigue, Denies flushing and Denies palpitations Hematologic/Lymphatic Hematologic/Lymphatic: Denies easy bruising Allergic/Immunologic Allergic/Immunologic: Denies urticaria, Denies throat swelling and Denies wheezing Patient History Medical History Adenocarcinoma of right lung, stage 4 (Inactive) Diabetes (Acute) Hypertension (Acute) Port-A-Cath in place (Inactive) Tobacco consumption (Acute) Surgical History H/O hand surgery (Acute ~2013) H/O shoulder surgery (Acute ~1997) History of lung surgery (Acute) History of vascular access device (Acute) Family History Father Prostate cancer Social History Smoking Status: Former smoker (stopped smoking on 03/31/2019) alcohol intake: current (wine, Whiskey, beer, spirits. ) substance use type: does not use Smoking Status: Former smoker (stopped smoking on 03/31/2019) Substance Use Type: does not use Exam Narrative Exam Narrative: GENERAL: [64] year old patient appears stated age. Well-nourished, well-developed patient, in mild distress. HEAD: Atraumatic. Normocephalic. EYES: Pupils equal round and reactive. Extraocular motions intact. No scleral icterus. No injection or drainage. ENT: Nose without bleeding, purulent drainage. Throat without erythema, tonsillar hypertrophy or exudate. Airway patent. NECK: Trachea midline. Non tender CARDIOVASCULAR: Tachycardic but regular rhythm without murmurs, gallops, or rubs. RESPIRATORY: Clear to auscultation. Breath sounds equal bilaterally. No wheezes, rales, or rhonchi. GASTROINTESTINAL: Abdomen soft, non-tender, nondistended. EXTREMITIES: No edema or joint tenderness. BACK: Nontender without deformity or crepitance. No flank tenderness. NEURO: AOx3. SKIN: No rash or erythema of visible areas Initial Vital Signs Initial Vital Signs: Vital Signs Temperature 99.8 F H 10/19/19 02:20 Pulse Rate 130 H 10/19/19 02:20 Respiratory Rate 21 10/19/19 02:20 Blood Pressure 98/66 10/19/19 02:20 Pulse Oximetry 99 10/19/19 02:20 Course Orders Ordered: ED Orders 10/19/19 02:19 XR chest 1V Stat 10/19/19 02:24 EKG-12 Lead Stat 10/19/19 02:50 Blood Culture Stat Complete Blood Count AUTO DIFF Stat Comprehensive Metabolic Panel Stat D Dimer Stat Lactate (Lactic Acid) Stat NT-proBNP (BNP-Adult 18+) Stat Procalcitonin Stat Respiratory Panel (Film Array) Stat Troponin & CK Cardiac Panel Stat 10/19/19 03:12 CT abdomen pelvis w con Stat CT angio chest PE protocol Stat 10/19/19 03:15 Urine Microscopic Stat Acetaminophen (Tylenol) 650 mg PO Q4HR PRN PRN Reason: Fever/Mild Pain (1-3) Al Hydrox/Mg Hydrox/Simethicone (Maalox Plus) 30 ml PO Q6HR PRN PRN Reason: Dyspepsia Bisacodyl (Dulcolax) 10 mg PO DAILY PRN PRN Reason: Constipation Calcium Carbonate (Tums) 1,000 mg PO Q4HR PRN PRN Reason: Dyspepsia Enoxaparin Sodium (Lovenox) 40 mg SUBCUT DAILY CINDI Heparin Sodium (Porcine) (Heparin Flush (Port)) 500 unit IV PRN PRN PRN Reason: Flush Lactated Ringer's (Lactated Ringers) 2,168.61 mls @ 722.87 mls/hr 30 ml/kg infuse over 3 hr (2168.61 ml) IV NOW ONE Stop: 10/19/19 05:18 Last Admin: 10/19/19 02:31 Dose: 722.87 mls/hr Documented by: FRANCO Norepinephrine Bitartrate 4 mg (/ Dextrose) 254 mls @ 30.48 mls/hr IV TITRATE CINDI; Protocol Lactated Ringer's (Lactated Ringers) 1,000 mls @ 100 mls/hr IV CONT CINDI Levofloxacin (Levaquin) 750 mg in 150 mls @ 100 mls/hr IV Q24H CINDI Ibuprofen (Advil) 600 mg PO Q8H PRN PRN Reason: Fever/Mild Pain (1-3) Naloxone HCl (Narcan) 0.2 mg IV Q2MIN PRN PRN Reason: Opiate Reversal Prochlorperazine (Compazine) 10 mg IV Q6HR PRN PRN Reason: Nausea Discontinued Medications Al Hydrox/Mg Hydrox/Simethicone 20 ml/ Lidocaine HCl 15 ml 0 ml PO NOW ONE Stop: 10/19/19 04:31 Last Admin: 10/19/19 04:46 Dose: 35 ml Documented by: DAR Levofloxacin (Levaquin) 750 mg in 150 mls @ 100 mls/hr IV NOW ONE Stop: 10/19/19 04:11 Last Infusion: 10/19/19 04:20 Dose: 0 mls/hr Documented by: Admin: 10/19/19 02:50 Dose: 100 mls/hr Documented by: FRANCO Ketorolac Tromethamine (Toradol) 15 mg IV NOW ONE Stop: 10/19/19 02:20 Last Admin: 10/19/19 02:30 Dose: 15 mg Documented by: FRANCO Pantoprazole Sodium (Protonix) 40 mg IV NOW ONE Stop: 10/19/19 04:31 Last Admin: 10/19/19 04:47 Dose: 40 mg Documented by: DAR Reevaluation(s) Reevaluation #3: Vital Signs Vital signs: Vital Signs - 8 hr 10/19/19 02:20 10/19/19 03:00 10/19/19 03:38 Temperature 99.8 F H 100.6 F H Pulse Rate 130 H 112 H 109 H Respiratory Rate 21 22 23 Blood Pressure 98/66 95/56 L 91/62 Pulse Oximetry 99 97 97 10/19/19 03:45 10/19/19 04:00 10/19/19 04:15 Temperature Pulse Rate 108 H 105 H 102 H Respiratory Rate 16 15 14 Blood Pressure 103/58 L 97/55 L 88/53 L Pulse Oximetry 97 98 100 MDM - Headache Lab Data Result diagrams: 10/19/19 02:50 10/19/19 02:50 Labs: Lab Results 10/19/19 10/19/19 10/19/19 Range/Units 02:50 02:50 02:50 WBC 5.7 (4.5-11.0) X10^3/uL RBC 3.22 L (4.5-5.9) X10^6/uL Hgb 11.5 L (13.5-17.5) g/dL Hct 33.3 L (41-53) % MCV 103.4 H (80-100) fL MCH 35.8 H (26-34) PG MCHC 34.6 (30-36) % RDW 14.4 (11.6-14.8) % Plt Count 242 (150-400) X10^3/uL Neut % (Auto) 37.9 L (50-75) % Lymph % (Auto) 43.1 H (25-40) % [place] % (Auto) 14.8 H (3-14) % Eos % (Auto) 3.4 (2-4) % Baso % (Auto) 0.8 (0-2) % Neut # (Auto) 2200 (1831-2221) /uL Lymph # (Auto) 2500 (5192-6651) /uL [place] # (Auto) 800 (0-900) /uL Eos # (Auto) 200 (0-450) /uL Baso # (Auto) 0 (0-100) /uL D-Dimer 849 H (<230) ng/mL Sodium 134 L (137-145) mmol/L Potassium 3.8 (3.4-5.1) mmol/L Chloride 102 (98-107) mmol/L Carbon Dioxide 23 (22-32) mmol/L BUN 14 (9-20) mg/dL Creatinine 1.08 (0.66-1.25) mg/dL Estimated GFR > 60.0 (>60) mL/min BUN/Creatinine Ratio 13.0 (6-22) Glucose 125 H (80-110) mg/dL Hemoglobin A1c (4.0-6.0) % Lactate (0.7-2.1) mmol/L Calcium 9.3 (8.4-10.2) mg/dL Magnesium (1.6-2.3) mg/dL Total Bilirubin 0.6 (0.2-1.3) mg/dL AST 44 (17-59) IU/L ALT 41 (<50) IU/L Alkaline Phosphatase 42 (38-126) U/L Total Creatine Kinase 60 (55-170) U/L CK-MB (CK-2) TNP CK-MB (CK-2) Rel Index TNP Troponin I < 0.012 (0.01-0.034) ng/mL NT-Pro-B Natriuret Pep 30 (<125) pg/mL Total Protein 6.8 (6.3-8.2) g/dL Albumin 3.9 (3.5-5.0) g/dL Globulin 2.9 (1.7-4.1) g/dL Albumin/Globulin Ratio 1.3 (1.0-2.8) Procalcitonin (<0.5) ng/mL Urine RBC (0-5/HPF) Urine WBC (0-5/HPF) Urine Bacteria (None) Ur Culture Indicated? Chlamy pneumoniae PCR (Not Detect) Adenovirus (PCR) (Not Detect) B.parapertussis DNA PCR (Not Detect) Coronavirus OC43 (PCR) (Not Detect) Coronavirus HKU1 (PCR) (Not Detect) Coronavirus 229E (PCR) (Not Detect) COVID-19 PCR (Negative) Coronavirus NL63 (PCR) (Not Detect) Human Metapneumovir PCR (Not Detect) Influenza Type A (PCR) (Not Detect) Influenza Type B (PCR) (Not Detect) M. pneumoniae (PCR) (Not Detect) Parainfluenza 1 (PCR) (Not Detect) Parainfluenza 2 (PCR) (Not Detect) Parainfluenza 3 (PCR) (Not Detect) Parainfluenza 4 (PCR) (Not Detect) RSV (PCR) (Not Detect) Entero/Rhino (PCR) (Not Detect) 10/19/19 10/19/19 10/19/19 Range/Units 02:50 02:50 02:50 WBC (4.5-11.0) X10^3/uL RBC (4.5-5.9) X10^6/uL Hgb (13.5-17.5) g/dL Hct (41-53) % MCV (80-100) fL MCH (26-34) PG MCHC (30-36) % RDW (11.6-14.8) % Plt Count (150-400) X10^3/uL Neut % (Auto) (50-75) % Lymph % (Auto) (25-40) % [place] % (Auto) (3-14) % Eos % (Auto) (2-4) % Baso % (Auto) (0-2) % Neut # (Auto) (7095-5944) /uL Lymph # (Auto) (7545-2500) /uL [place] # (Auto) (0-900) /uL Eos # (Auto) (0-450) /uL Baso # (Auto) (0-100) /uL D-Dimer (<230) ng/mL Sodium (137-145) mmol/L Potassium (3.4-5.1) mmol/L Chloride (98-107) mmol/L Carbon Dioxide (22-32) mmol/L BUN (9-20) mg/dL Creatinine (0.66-1.25) mg/dL Estimated GFR (>60) mL/min BUN/Creatinine Ratio (6-22) Glucose (80-110) mg/dL Hemoglobin A1c (4.0-6.0) % Lactate 1.4 (0.7-2.1) mmol/L Calcium (8.4-10.2) mg/dL Magnesium (1.6-2.3) mg/dL Total Bilirubin (0.2-1.3) mg/dL AST (17-59) IU/L ALT (<50) IU/L Alkaline Phosphatase (38-126) U/L Total Creatine Kinase (55-170) U/L CK-MB (CK-2) CK-MB (CK-2) Rel Index Troponin I (0.01-0.034) ng/mL NT-Pro-B Natriuret Pep (<125) pg/mL Total Protein (6.3-8.2) g/dL Albumin (3.5-5.0) g/dL Globulin (1.7-4.1) g/dL Albumin/Globulin Ratio (1.0-2.8) Procalcitonin < 0.05 (<0.5) ng/mL Urine RBC (0-5/HPF) Urine WBC (0-5/HPF) Urine Bacteria (None) Ur Culture Indicated? Chlamy pneumoniae PCR Not detected (Not Detect) Adenovirus (PCR) Not detected (Not Detect) B.parapertussis DNA PCR Not detected (Not Detect) Coronavirus OC43 (PCR) Not detected (Not Detect) Coronavirus HKU1 (PCR) Not detected (Not Detect) Coronavirus 229E (PCR) Not detected (Not Detect) COVID-19 PCR (Negative) Coronavirus NL63 (PCR) Not detected (Not Detect) Human Metapneumovir PCR Not detected (Not Detect) Influenza Type A (PCR) Not detected (Not Detect) Influenza Type B (PCR) Not detected (Not Detect) M. pneumoniae (PCR) Not detected (Not Detect) Parainfluenza 1 (PCR) Not detected (Not Detect) Parainfluenza 2 (PCR) Not detected (Not Detect) Parainfluenza 3 (PCR) Not detected (Not Detect) Parainfluenza 4 (PCR) Not detected (Not Detect) RSV (PCR) Not detected (Not Detect) Entero/Rhino (PCR) Not detected (Not Detect) 10/19/19 10/19/19 10/19/19 Range/Units 02:50 02:50 02:51 WBC (4.5-11.0) X10^3/uL RBC (4.5-5.9) X10^6/uL Hgb (13.5-17.5) g/dL Hct (41-53) % MCV (80-100) fL MCH (26-34) PG MCHC (30-36) % RDW (11.6-14.8) % Plt Count (150-400) X10^3/uL Neut % (Auto) (50-75) % Lymph % (Auto) (25-40) % [place] % (Auto) (3-14) % Eos % (Auto) (2-4) % Baso % (Auto) (0-2) % Neut # (Auto) (8178-6481) /uL Lymph # (Auto) (5663-5324) /uL [place] # (Auto) (0-900) /uL Eos # (Auto) (0-450) /uL Baso # (Auto) (0-100) /uL D-Dimer (<230) ng/mL Sodium (137-145) mmol/L Potassium (3.4-5.1) mmol/L Chloride (98-107) mmol/L Carbon Dioxide (22-32) mmol/L BUN (9-20) mg/dL Creatinine (0.66-1.25) mg/dL Estimated GFR (>60) mL/min BUN/Creatinine Ratio (6-22) Glucose (80-110) mg/dL Hemoglobin A1c 5.3 (4.0-6.0) % Lactate (0.7-2.1) mmol/L Calcium (8.4-10.2) mg/dL Magnesium 1.9 (1.6-2.3) mg/dL Total Bilirubin (0.2-1.3) mg/dL AST (17-59) IU/L ALT (<50) IU/L Alkaline Phosphatase (38-126) U/L Total Creatine Kinase (55-170) U/L CK-MB (CK-2) CK-MB (CK-2) Rel Index Troponin I (0.01-0.034) ng/mL NT-Pro-B Natriuret Pep (<125) pg/mL Total Protein (6.3-8.2) g/dL Albumin (3.5-5.0) g/dL Globulin (1.7-4.1) g/dL Albumin/Globulin Ratio (1.0-2.8) Procalcitonin (<0.5) ng/mL Urine RBC (0-5/HPF) Urine WBC (0-5/HPF) Urine Bacteria (None) Ur Culture Indicated? Chlamy pneumoniae PCR (Not Detect) Adenovirus (PCR) (Not Detect) B.parapertussis DNA PCR (Not Detect) Coronavirus OC43 (PCR) (Not Detect) Coronavirus HKU1 (PCR) (Not Detect) Coronavirus 229E (PCR) (Not Detect) COVID-19 PCR Negative (Negative) Coronavirus NL63 (PCR) (Not Detect) Human Metapneumovir PCR (Not Detect) Influenza Type A (PCR) (Not Detect) Influenza Type B (PCR) (Not Detect) M. pneumoniae (PCR) (Not Detect) Parainfluenza 1 (PCR) (Not Detect) Parainfluenza 2 (PCR) (Not Detect) Parainfluenza 3 (PCR) (Not Detect) Parainfluenza 4 (PCR) (Not Detect) RSV (PCR) (Not Detect) Entero/Rhino (PCR) (Not Detect) 10/19/19 Range/Units 03:15 WBC (4.5-11.0) X10^3/uL RBC (4.5-5.9) X10^6/uL Hgb (13.5-17.5) g/dL Hct (41-53) % MCV (80-100) fL MCH (26-34) PG MCHC (30-36) % RDW (11.6-14.8) % Plt Count (150-400) X10^3/uL Neut % (Auto) (50-75) % Lymph % (Auto) (25-40) % [place] % (Auto) (3-14) % Eos % (Auto) (2-4) % Baso % (Auto) (0-2) % Neut # (Auto) (2901-3133) /uL Lymph # (Auto) (8850-5917) /uL [place] # (Auto) (0-900) /uL Eos # (Auto) (0-450) /uL Baso # (Auto) (0-100) /uL D-Dimer (<230) ng/mL Sodium (137-145) mmol/L Potassium (3.4-5.1) mmol/L Chloride (98-107) mmol/L Carbon Dioxide (22-32) mmol/L BUN (9-20) mg/dL Creatinine (0.66-1.25) mg/dL Estimated GFR (>60) mL/min BUN/Creatinine Ratio (6-22) Glucose (80-110) mg/dL Hemoglobin A1c (4.0-6.0) % Lactate (0.7-2.1) mmol/L Calcium (8.4-10.2) mg/dL Magnesium (1.6-2.3) mg/dL Total Bilirubin (0.2-1.3) mg/dL AST (17-59) IU/L ALT (<50) IU/L Alkaline Phosphatase (38-126) U/L Total Creatine Kinase (55-170) U/L CK-MB (CK-2) CK-MB (CK-2) Rel Index Troponin I (0.01-0.034) ng/mL NT-Pro-B Natriuret Pep (<125) pg/mL Total Protein (6.3-8.2) g/dL Albumin (3.5-5.0) g/dL Globulin (1.7-4.1) g/dL Albumin/Globulin Ratio (1.0-2.8) Procalcitonin (<0.5) ng/mL Urine RBC None seen (0-5/HPF) Urine WBC None seen (0-5/HPF) Urine Bacteria None seen (None) Ur Culture Indicated? Cult not indicated Chlamy pneumoniae PCR (Not Detect) Adenovirus (PCR) (Not Detect) B.parapertussis DNA PCR (Not Detect) Coronavirus OC43 (PCR) (Not Detect) Coronavirus HKU1 (PCR) (Not Detect) Coronavirus 229E (PCR) (Not Detect) COVID-19 PCR (Negative) Coronavirus NL63 (PCR) (Not Detect) Human Metapneumovir PCR (Not Detect) Influenza Type A (PCR) (Not Detect) Influenza Type B (PCR) (Not Detect) M. pneumoniae (PCR) (Not Detect) Parainfluenza 1 (PCR) (Not Detect) Parainfluenza 2 (PCR) (Not Detect) Parainfluenza 3 (PCR) (Not Detect) Parainfluenza 4 (PCR) (Not Detect) RSV (PCR) (Not Detect) Entero/Rhino (PCR) (Not Detect) Urine Dip Bedside Urine Glucose Negative Bedside Urine Bilirubin - Negative Bedside Urine Ketone +/- 5 Urine Specific [place] 1.020 Bedside Urine Occult Blood - Negative Bedside Urine pH 5.5 Bedside Urine Protein +/- 15 Bedside Urine Urobilinogen - Negative Bedside Urine Nitrite - Negative Bedside Urine Leukocytes - Negative Esterase Discharge Plan Departure Patient Disposition: Admitted as Observation Clinical Impression: Acute viral syndrome Sepsis Qualifiers: Sepsis type: sepsis due to unspecified organism Sepsis acute organ dysfunction status: unspecified Qualified Code(s): A41.9 - Sepsis, unspecified organism Referrals: Rocío Hrebert ND [Primary Care Provider] - Admit Date/Time: 10/19/19 04:18 Admit Provider: Sacha Clark
--- NOTE | 2019-10-19 02:19 | DI.RAD.S_ITS ---
PROCEDURE: XR CHEST 1V INDICATIONS: Fever, chills TECHNIQUE: One view of the chest was acquired. COMPARISON: [facility], CT, CT CHEST ABDOMEN W CON, 09/30/2019, 9:42. [facility], CR, XR CHEST 2V, 05/17/2019, 10:42. FINDINGS: Surgical changes and devices: Right chest wall central venous port catheter terminates just cephalad to the superior cavoatrial junction. EKG leads project over the chest. Lungs and pleura: Small right pleural effusion, slightly decreased from 05/17/2019 comparison. Diffusely increased interstitial markings throughout both lungs are present, also slightly decreased when compared with 05/17/2019 exam. There is no focal consolidation. Mediastinum: Mediastinal contours appear normal. Heart size is normal. Bones and chest wall: No suspicious bony lesions. Overlying soft tissues appear unremarkable. IMPRESSION: Small right pleural effusion with bilateral increased interstitial markings. Findings appear chronic although it would be difficult to exclude an acute process such as mild interstitial pulmonary edema or atypical infection. Dictated by: Jones Hernandez M.D. on 10/19/2019 at 7:40 Approved by: Jones Hernandez M.D. on 10/19/2019 at 7:43
[2019-10-19] MEDS: KETOROLAC 60 MG/2 ML VIAL 15 MG IV (02:30)
[2019-10-19] MEDS: LACTATED RINGERS 722.87 ML IV (02:31)
[2019-10-19] MEDS: LIDOCAINE 1% (PF) 2 ML (02:42)
[2019-10-19] MEDS: levoFLOXacin 750 MG/150 ML PIGGYBACK 100 MG IV (02:50)
[2019-10-19 03:07] LABS: Add Manual Diff / Slide Review NO; Basophils Absolute Auto 0 /uL (0-100); Basophils Percent Auto 0.8 % (0-2); Eosinophils Absolute Auto 200 /uL (0-450); Eosinophils Percent Auto 3.4 % (2-4); Hematocrit 33.3 % (41-53); Hemoglobin 11.5 g/dL (13.5-17.5); Lymphocytes Absolute Auto 2500 /uL (1100-4500); Lymphocytes Percent Auto 43.1 % (25-40); Mean Corpuscular HGB Conc 34.6 % (30-36); Mean Corpuscular Hemoglobin 35.8 PG (26-34); Mean Corpuscular Volume 103.4 fL (80-100); Monocytes Absolute Auto 800 /uL (0-900); Monocytes Percent Auto 14.8 % (3-14); Neutrophils Absolute Auto 2200 /uL (1500-7000); Neutrophils Percent Auto 37.9 % (50-75); Platelet Count 242 X10^3/uL (150-400); Red Blood Cell Count 3.22 X10^6/uL (4.5-5.9); Red Cell Distribution Width 14.4 % (11.6-14.8); White Blood Cell Count 5.7 X10^3/uL (4.5-11.0)
--- NOTE | 2019-10-19 03:12 | DI.CT.S_ITS ---
PROCEDURE: CT ANGIO CHEST PE PROTOCOL INDICATIONS: low grade fever, tachycardia, cancer patient TECHNIQUE: After the administration of intravenous contrast, 2 mm thick sections acquired from the pulmonary apices to the posterior costophrenic angles. 3-dimensional maximum intensity projection (MIP) coronal and sagittal reformats were then acquired through the thorax. For radiation dose reduction, the following was used: automated exposure control, adjustment of mA and/or kV according to patient size. COMPARISON: [facility], CT, CT CHEST ABD PEL W CON, 03/06/2019, 9:49. [facility], CT, CT CHEST ABDOMEN W CON, 09/30/2019, 9:42. FINDINGS: Image quality: Suboptimal timing of the contrast bolus to evaluate for small subsegmental pulmonary emboli. Pulmonary arteries: Normal caliber pulmonary arterial circulation with no evidence of proximal or central filling defect. Lungs and pleura: Status post right upper lobectomy. Nodular right pleural thickening and right lower lobe atelectasis, perhaps slightly increased from the prior exam. A pickle pleuroparenchymal scarring and basilar pleural-parenchymal scarring or similar. No suspicious pulmonary mass identified. Mediastinum: Normal heart size. No pericardial effusion. Thoracic aorta is normal in caliber. Numerous prominent but not threshold enlarged mediastinal lymph nodes are similar to the recent comparison. Bones and chest wall: No threshold enlarged axillary or supraclavicular lymph node. Thyroid gland unremarkable. No suspicious lytic or blastic osseous lesion. Abdomen: Indeterminate left adrenal nodule unchanged from comparison studies dating back to 03/06/2019. IMPRESSION: No findings of pulmonary embolism. Postsurgical changes of right upper lobectomy with similar findings of nodular pleural thickening and pleural parenchymal scarring when compared with the most recent prior study. No significant change from the preliminary report. Dictated by: Jones Hernandez M.D. on 10/19/2019 at 8:01 Approved by: Jones Hernandez M.D. on 10/19/2019 at 8:11
--- NOTE | 2019-10-19 03:12 | DI.CT.S_ITS ---
PROCEDURE: CT ABDOMEN PELVIS W CON INDICATIONS: sepsis TECHNIQUE: After the administration of intravenous contrast, 5 mm thick sections acquired from the diaphragm to the symphysis. 5 mm coronal and sagittal reformats were acquired. For radiation dose reduction, the following was used: automated exposure control, adjustment of mA and/or kV according to patient size. COMPARISON: [facility], CT, CT CHEST ABD PEL W CON, 03/06/2019, 9:49. FINDINGS: Image quality: Excellent. ABDOMEN: Solid organs: Normal size and appearance of the liver. Spleen is unremarkable. No acute finding of the pancreas. Indeterminate left adrenal nodule which is unchanged from February 2019. Right adrenal gland unremarkable. No acute finding of the kidneys. Peritoneum and bowel: No abnormally dilated or obviously thickened loop of bowel. No pericolonic or mesenteric inflammatory changes. Nodes and vessels: Nonaneurysmal abdominal aorta. Normal caliber IVC. There is no threshold enlarged intra-abdominal or retroperitoneal lymph node. PELVIS: Genitourinary: The urinary bladder is decompressed and not well evaluated. Prostate gland unremarkable. No threshold enlarged pelvic or inguinal lymph node. Bones: No suspicious bony lesions. No vertebral body compression fractures. IMPRESSION: No CT evidence of acute inflammation or infection in the abdomen. Indeterminate left adrenal nodule unchanged from 03/06/2019 exam. This likely represents an adrenal adenoma although a metastasis cannot be strictly excluded. Adrenal protocol MRI with could be used for further evaluation if clinically warranted. No significant change from preliminary report. Dictated by: Jones Hernandez M.D. on 10/19/2019 at 8:11 Approved by: Jones Hernandez M.D. on 10/19/2019 at 8:16
[2019-10-19 03:16] LABS: D Dimer 849 ng/mL (<230)
[2019-10-19 03:17] LABS: Lactate (Lactic Acid) 1.4 mmol/L (0.7-2.1)
[2019-10-19 03:17] LABS: Bacteria Urine None Seen; RBC Urine None Seen (0-5/HPF); WBC Urine None Seen (0-5/HPF)
[2019-10-19 03:18] LABS: Alanine Aminotransferase 41 IU/L (<50); Albumin 3.9 g/dL (3.5-5.0); Albumin Globulin Ratio 1.3 (1.0-2.8); Alkaline Phosphatase 42 U/L (38-126); Aspartate Aminotransferase 44 IU/L (17-59); Bilirubin Total 0.6 mg/dL (0.2-1.3); Blood Urea Nitrogen 14 mg/dL (9-20); Calcium 9.3 mg/dL (8.4-10.2); Carbon Dioxide 23 mmol/L (22-32); Chloride 102 mmol/L (98-107); Creatine Kinase 60 U/L (55-170); Estimated Glomerular Filt Rate > 60.0 mL/min (>60); Globulin 2.9 g/dL (1.7-4.1); Glucose 125 mg/dL (80-110); HEMOLYSIS < 15 (0-50); Potassium 3.8 mmol/L (3.4-5.1); Sodium 134 mmol/L (137-145); Total Protein 6.8 g/dL (6.3-8.2)
[2019-10-19 03:30] LABS: NT-proBNP (BNP-Adult 18+) 30 pg/mL (<125); Troponin I < 0.012 ng/mL (0.01-0.034)
[2019-10-19 03:31] LABS: Culture Indicated Urine Cult Not Indicated
[2019-10-19 03:43] LABS: Procalcitonin < 0.05 ng/mL (<0.5)
[2019-10-19 04:00] LABS: Adenovirus Not Detected (Not Detect); Coronavirus 229E Not Detected (Not Detect); Coronavirus HKU1 Not Detected (Not Detect); Coronavirus NL 63 Not Detected (Not Detect); Coronavirus OC43 Not Detected (Not Detect); Human Metapneumovirus Not Detected (Not Detect); Human Rhinovirus/Enterovirus Not Detected (Not Detect); Influenza A Not Detected (Not Detect); Influenza B Not Detected (Not Detect); Parainfluenza Virus 1 Not Detected (Not Detect)
[2019-10-19 04:01] LABS: Bordetella pertussis Not Detected (Not Detect); Chlamydophila pneumoniae Not Detected (Not Detect); Mycoplasma pneumoniae Not Detected (Not Detect); Parainfluenza Virus 2 Not Detected (Not Detect); Parainfluenza Virus 3 Not Detected (Not Detect); Parainfluenza Virus 4 Not Detected (Not Detect); Respiratory Syncytial Virus Not Detected (Not Detect)
[2019-10-19 04:22] LABS: COVID19 -Nasal RAPID Negative (Negative)
--- NOTE | 2019-10-19 04:32 | P.HP_ITS ---
History of Present Illness History of Present Illness Date Patient Seen: 10/19/19 Time Patient Seen: 05:16 Chief complaint: headache,body aches, is cancer pt, new meds Narrative: Mr. 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 Patient reports symptoms onset 2-3 days ago after golfing. He states the symptoms progressively intensified with associated symptoms of nausea without vomiting and and yesterday developed body aches and headache. The patient has been self treating Tylenol. He presents tonight with severe body aches fevers and unable to get comfortable. The patient was initially found to have a lung nodule identified in February of 2019 after which he was evaluated by Oncology in March of 2019 and underwent a surgical biopsy involving wedge resection of the right upper and middle lobes of the right long in April 2016 at [facility]. Diagnosis was made from pleural fluid and tissue samples of adenosquamous carcinoma (please refer to Dr. Pelayo's comprehensive notes). The patient was initiated on chemotherapy on 05/31/2019 with carboplatin, nab-paclitaxel, and pembrolizumab (Keytruda). He had been receiving Keytruda immunotherapy every 3 weeks and has just transit ion to 6 week protocol on his last dose administered on 10/06/2019. Before the onset of current symptoms the patient has had significant fatigue while undergoing chemotherapy and immunotherapy. He reports sleeping 14-16 hours a day. He reports poor appetite with mild nausea following prior chemo therapeutic treatments much worse after this current round. He denies dizziness, visual changes, nasal congestion or sore throat. He does report recent development of accumulation of clear phlegm over the last few weeks. He denies complaints of chest pain, shortness of breath, coughing, wheezing or hemoptysis. She denies complaints abdominal pain but does have acid stomach/heartburn. He has had nausea that has been persistent worse after the double dose treatment regimen to started but no vomiting. He reports alternating constipation and diarrhea that he associates with using Compazine f or nausea. He denies hematochezia or melena. He denies urinary symptoms of urgency burning frequency or hematuria. Upon arrival to the ER the patient had temperature 99.8?, tachycardic at 1 and 30 with blood pressure 98/66 with respirations 21 and oxygen saturation on and% on room air. Imaging reveals a small right pleural effusion, no evidence of colitis, diverticulitis or small-bowel obstruction or obstructive uropathy. Persistent nodule in the left adrenal gland is redemonstrated. CT angio of the chest finds no central pulmonary embolus or aortic dissection, small loculated right pleural effusion nodular right pleural thickening and right lower lobe atelectasis, indeterminate left adrenal nodule that has been previously demonstrated on prior studies. A 12 lead EKG is obtained finding a sinus tachycardia of 112 without ectopy or block, no ischemia or infarct noted. On laboratory analysis the patient has white count of 5.7 with increased neutrophils at 43.1%, decrease neutrophils at 37.9%, hemoglobin of 11.5, hematocrit of 33.3 and platelets of 242. His electrolytes are within normal limits and has a BUN of 14 and a creatinine of 1.08. His nonfasting glucose is 125 his liver functions are all within normal range. He has an elevated D-dimer at 849 and a lactic acid of 1.4. His procalcitonin is less than 0.05. He has a CK of 60 and a troponin of less than 0.012. Respiratory PCR is obtained with negative findings. Urinalysis shows a specific gravity of 1.020, negative for blood, leukocyte esterase, nitrites, wbc's, trace ketones and protein. In the ER the patient has received lactated Ringer sepsis protocol of 30 male per kilos, Toradol 15 mg IV, Protonix 40 mg IV and Levaquin 750 mg IV. Patient also was complaining of epigastric discomfort was given at a GI cocktail which probably resulted in nausea vomiting The patient is admitted to the medicine service for fever of unknown origin probable viral syndrome. Patient History Medical History Adenocarcinoma of right lung, stage 4 (Inactive) Diabetes (Acute) Hypertension (Acute) Port-A-Cath in place (Inactive) Tobacco consumption (Acute) Surgical History H/O hand surgery (Acute ~2013) H/O shoulder surgery (Acute ~1997) History of lung surgery (Acute) History of vascular access device (Acute) Family & Social History Family History Father Prostate cancer Safety & Behavioral: Feels Safe in Current Yes Environment Tobacco & Substance use: Smoking Status Former smoker alcohol intake current alcohol intake frequency a few times a week Substance Use Type does not use Meds Home Medications and Allergies Home Medications Medication Instructions Recorded Confirmed Type lisinopril 10 mg PO DAILY 04/05/19 10/19/19 History metformin 500 mg PO BID 10/19/19 10/19/19 History prochlorperazine maleate 10 mg PO Q6H PRN 10/19/19 10/19/19 History Allergies Allergy/AdvReac Type Severity Reaction Status Date / Time hydrocodone Allergy ITCHING Verified 05/16/19 09:01 Review of Systems Review of Systems ROS: Yes All systems reviewed with the patient and are negative except as otherwise documented Exam Vital Signs (past 8 hours): - 10/19/19 02:20 10/19/19 03:00 10/19/19 03:38 Temperature 99.8 F H 100.6 F H Pulse Rate 130 H 112 H 109 H Respiratory Rate 21 22 23 Blood Pressure 98/66 95/56 L 91/62 Pulse Oximetry 99 97 97 Oxygen Delivery Method Room Air Narrative Exam Narrative: GENERAL APPEARANCE: well developed, obese male with a BMI of 33.2 who was ill- appearing. HEENT: Normocephalic, PERRLA, conjunctiva clear, sclerae anicteric, EOMs intact without nystagmus, no sinus tenderness to percussion, no rhinorrhea, mucous membranes are moist and pink, healing mucosal lesion bright buccal region. NECK/THYROID: neck supple, no JVD, no carotid bruit, no thyromegaly, trachea midline. LYMPH NODES: no cervical or supraclavicular lymphadenopathy. SKIN: Slightly pale, hot and dry, no visible lesions, rashes, ulcerations or petechiae. HEART: Tachycardic rate with regular rhythm, S1-S2, no murmur, no rubs or gallops, brisk capillary refill, no edema LUNGS: Diminished breath sounds right lower lung, no coarseness crackles or whe ezing, no cough present CHEST: Symmetrical movement, no accessory muscle use, Port-A-Cath right upper chest, good tidal volume. ABDOMEN: Soft, no distention, no abdominal tenderness, no organomegaly, no flank or suprapubic tenderness, active bowel tones. BACK: Normal curvature, nontender to palpation, no CVA tenderness on percussion EXTREMITIES: moves all extremities, strength is 5/5 and symmetrical, no deformities or joint effusions. NEUROLOGIC: AAO x4, no focal neurologic deficits, cranial nerves II-XII grossly intact, sensation intact to light touch, hearing grossly normal to speech. PSYCH: Fair eye contact, linear thought, cooperative, appropriate with stable behavior Objective Labs Result Diagrams: 10/19/19 02:50 10/19/19 02:50 Labs: Laboratory Results - last 24 hr 10/19/19 10/19/19 10/19/19 02:50 02:50 02:50 WBC 5.7 RBC 3.22 L Hgb 11.5 L Hct 33.3 L MCV 103.4 H MCH 35.8 H MCHC 34.6 RDW 14.4 Plt Count 242 Neut % (Auto) 37.9 L Lymph % (Auto) 43.1 H Furn[place] % (Auto) 14.8 H Eos % (Auto) 3.4 Baso % (Auto) 0.8 Neut # (Auto) 2200 Lymph # (Auto) 2500 [place] # (Auto) 800 Eos # (Auto) 200 Baso # (Auto) 0 D-Dimer 849 H Sodium 134 L Potassium 3.8 Chloride 102 Carbon Dioxide 23 BUN 14 Creatinine 1.08 Estimated GFR > 60.0 BUN/Creatinine Ratio 13.0 Glucose 125 H Lactate Calcium 9.3 Total Bilirubin 0.6 AST 44 ALT 41 Alkaline Phosphatase 42 Total Creatine Kinase 60 CK-MB (CK-2) TNP CK-MB (CK-2) Rel Index TNP Troponin I < 0.012 NT-Pro-B Natriuret Pep 30 Total Protein 6.8 Albumin 3.9 Globulin 2.9 Albumin/Globulin Ratio 1.3 Procalcitonin Urine RBC Urine WBC Urine Bacteria Ur Culture Indicated? Chlamy pneumoniae PCR Adenovirus (PCR) B.parapertussis DNA PCR Coronavirus OC43 (PCR) Coronavirus HKU1 (PCR) Coronavirus 229E (PCR) COVID-19 PCR Coronavirus NL63 (PCR) Human Metapneumovir PCR Influenza Type A (PCR) Influenza Type B (PCR) M. pneumoniae (PCR) Parainfluenza 1 (PCR) Parainfluenza 2 (PCR) Parainfluenza 3 (PCR) Parainfluenza 4 (PCR) RSV (PCR) Entero/Rhino (PCR) 10/19/19 10/19/19 10/19/19 02:50 02:50 02:50 WBC RBC Hgb Hct MCV MCH MCHC RDW Plt Count Neut % (Auto) Lymph % (Auto) Furn[place] % (Auto) Eos % (Auto) Baso % (Auto) Neut # (Auto) Lymph # (Auto) [place] # (Auto) Eos # (Auto) Baso # (Auto) D-Dimer Sodium Potassium Chloride Carbon Dioxide BUN Creatinine Estimated GFR BUN/Creatinine Ratio Glucose Lactate 1.4 Calcium Total Bilirubin AST ALT Alkaline Phosphatase Total Creatine Kinase CK-MB (CK-2) CK-MB (CK-2) Rel Index Troponin I NT-Pro-B Natriuret Pep Total Protein Albumin Globulin Albumin/Globulin Ratio Procalcitonin < 0.05 Urine RBC Urine WBC Urine Bacteria Ur Culture Indicated? Chlamy pneumoniae PCR Not detected Adenovirus (PCR) Not detected B.parapertussis DNA PCR Not detected Coronavirus OC43 (PCR) Not detected Coronavirus HKU1 (PCR) Not detected Coronavirus 229E (PCR) Not detected COVID-19 PCR Coronavirus NL63 (PCR) Not detected Human Metapneumovir PCR Not detected Influenza Type A (PCR) Not detected Influenza Type B (PCR) Not detected M. pneumoniae (PCR) Not detected Parainfluenza 1 (PCR) Not detected Parainfluenza 2 (PCR) Not detected Parainfluenza 3 (PCR) Not detected Parainfluenza 4 (PCR) Not detected RSV (PCR) Not detected Entero/Rhino (PCR) Not detected 10/19/19 10/19/19 02:51 03:15 WBC RBC Hgb Hct MCV MCH MCHC RDW Plt Count Neut % (Auto) Lymph % (Auto) [place] % (Auto) Eos % (Auto) Baso % (Auto) Neut # (Auto) Lymph # (Auto) [place] # (Auto) Eos # (Auto) Baso # (Auto) D-Dimer Sodium Potassium Chloride Carbon Dioxide BUN Creatinine Estimated GFR BUN/Creatinine Ratio Glucose Lactate Calcium Total Bilirubin AST ALT Alkaline Phosphatase Total Creatine Kinase CK-MB (CK-2) CK-MB (CK-2) Rel Index Troponin I NT-Pro-B Natriuret Pep Total Protein Albumin Globulin Albumin/Globulin Ratio Procalcitonin Urine RBC None seen Urine WBC None seen Urine Bacteria None seen Ur Culture Indicated? Cult not indicated Chlamy pneumoniae PCR Adenovirus (PCR) B.parapertussis DNA PCR Coronavirus OC43 (PCR) Coronavirus HKU1 (PCR) Coronavirus 229E (PCR) COVID-19 PCR Negative Coronavirus NL63 (PCR) Human Metapneumovir PCR Influenza Type A (PCR) Influenza Type B (PCR) M. pneumoniae (PCR) Parainfluenza 1 (PCR) Parainfluenza 2 (PCR) Parainfluenza 3 (PCR) Parainfluenza 4 (PCR) RSV (PCR) Entero/Rhino (PCR) Assessment & Plan Assessment & Plan narrative: This is a 64-year-old male with a history of adenosquamous carcinoma of the right long who has received chemotherapy in currently undergoing immunotherapy with Keytruda, last dose 10/06/2019 upgrading to a double dose regimen of 400 mg to be dosed every 6 weeks who was developed fevers, shaking chills, nausea and body aches progressive over the last 3 days. 1. Fever of unknown origin, possible viral syndrome versus adverse effective immunotherapy, present on admission, active. -the patient reports subjective fevers, shaking chills and body aches at home progressive for 3 days. Patient has self-treated with Tylenol without resolution of symptoms. -patient does not meet sepsis criteria with a SOFA score of 1. -white blood cell count is 5.7 with elevated lymphocytes and 43.1% and decreased neutrophils at 37.9%. Procalcitonin is less than 0.05. Respiratory PCR panel is negative, urinalysis is not effective but sent for culture, blood cultures have been drawn. -imaging of the chest finds no infiltrates with a persistent right pleural effusion, abdominal imaging finds no evidence of intra-abdominal pathology with no mesenteric or retroperitoneal lymphadenopathy and no ascites. -patient received 30 milliliters/kilogram IV bolus of lactated Ringer's in the ER. Will continue lactated Ringer's at 100 cc/hour. -ordered Tylenol 650 mg every 4 hours as needed for mild pain or fever and ibuprofen 600 mg every 8 hours for moderate pain or fever unresponsive to Tylenol. 2. Adenosquamous carcinoma stage IV with a right long, chronic, stable. -lung nodule identified on ER visit in February of 2019. Patient subsequently followed up with Oncology in March of 2019 proceeding to a surgical biopsy in the form of wedge resection of right upper and right middle lobes confirming diagnosis of adenosquamous carcinoma. -initiating chemotherapy 05/30/2019 with carboplatin, nab-paclitaxel, and pembrolizumab (Keytruda), received Keytruda immunotherapy every 3 weeks, transition to 6 week protocol on his last dose administered on 10/06/2019. Patient with mild side effects including mild nausea and poor appetite with fatigue on prior regimen. Now presents with more intense side effects following double dose regimen. -CT on 08/15/2019 finds small right exudate of pleural effusion with pleural thickening consistent with pleural carcinomatosis, left adrenal nodule which was deemed stable in comparison to prior exam. CT exam on 09/30/2019 obtained for dull chest pain was without significant changes. -ordered Compazine 10 mg IV as needed for nausea. -ordered Protonix 40 IV mg daily. -ordered Tylenol 650 mg every 4 hours as needed for mild pain or fever and ibuprofen 600 mg every 8 hours for moderate pain or fever unresponsive to Tylenol. 3. Diabetes type 2, non insulin dependent, controlled, present on admission, stable. -patient denies complications of diabetes and takes metformin 500 mg twice daily. -ordered fingerstick glucose checks a.c. and HS and will cover with low-dose correctional insulin. -will obtain a hemoglobin A1c. -medium constant carbohydrate heart healthy diet. 4. Hypertension, chronic, stable -patient presents with blood pressure of 98/66 decreasing down to 80s systolic while in the ER and is responsive to fluid bolusing. -the patient typically takes lisinopril 10 mg daily which is held pending stabilization of blood pressure. VTE prophylaxis: Bilateral SCDs, enoxaparin IV fluid: Lactated Ringer's 100 cc/hour Diet: Medium constant carbohydrate, heart healthy Code status: FULL CODE, patient's is surrogate decision maker. Patient with transient episode of hypotension while in the ER and therefore is admitted to the hospital for close monitoring and the risk for further decompensation adverse events. The patient is admitted as observation status with expected length of stay be less than 2 midnights. Scores GCS Aniya coma scale eye opening: Spontaneous Aniya coma scale verbal response: Orientated Gloster coma scale motor response: Obey commands Gloster coma scale total score: 15 SOFA PaO2/FIO2: >=400 mmHg Platelets: >= 150 Bilirubin: < 1.2 mg/dL Hypotension: MAP < 70 mmHg Gloster Coma Scale: 15 Renal: < 1.2 mg/dL SOFA Score: 1
[2019-10-19 04:44] LABS: Magnesium 1.9 mg/dL (1.6-2.3)
[2019-10-19] MEDS: MAG HYDROX/ALUMINUM/SIMETH SUS 20 ML, LIDOCAINE VISCOUS 2% 15 ML PO (04:46)
[2019-10-19] MEDS: PANTOPRAZOLE 40 MG VIAL IV (04:47)
[2019-10-19 04:56] LABS: Hemoglobin A1C% w Est Avg Glu 5.3 % (4.0-6.0)
--- NOTE | 2019-10-19 05:02 | PC.NURSE ---
Pt complaining of indigestion. Provider gave order for GI cocktail. Gave pt who immediately became nauseated and had 1 episode of emesis. After emesis pt states feeling better and declined zofran at this time.
[2019-10-19] MEDS: LACTATED RINGERS 1,000 ML 100 ML IV ×2 (05:34→14:29)
[2019-10-19] MEDS: ACETAMINOPHEN 325 MG TABLET 650 MG PO ×3 (05:45→19:19)
--- NOTE | 2019-10-19 06:11 | PC.NURSE ---
Patient alert,oriented rates back, neck and headache 5/10 given 650 mg tylenol. Patient denies cough, chest pain and shortness of breath, afebrile currently. Patient oriented to room and call light, provided snack.
[2019-10-19] MEDS: OXYCODONE IR 5 MG TABLET PO ×3 (07:05→22:25)
[2019-10-19] MEDS: ENOXAPARIN 40 MG/0.4 ML SYRINGE SUBCUT (08:38)
[2019-10-19] MEDS: IBUPROFEN 600 MG TABLET PO (10:17)
--- NOTE | 2019-10-19 10:43 | CM.DANOTE ---
DCP: Case received, EMR reviewed. Patient has been resting, and limited visitors. had just left. Discussed at team rounds outside of room. DCP assessment completed based on information currently available from chart, as well as team rounds. Patient is a 64 year old male who admitted early this morning to the care of the hospitalist team. PCP: Dr. Herbert. Payer: confirmed: [place] [facility] Patient came to the hospital via private vehicle secondary to having weakness, as well as body aches and fever. Patient has history of stage 4 lung cancer, and is currently undergoing chemo (IV Keytruda), every 3 weeks at oncology. He holds current diagnosis of sepsis, but blood cultures are pending. He has been sleeping at this time, but had just visited. According to notes, patient resides here in [place] with his , Tahira. His primary provider is Rocío Herbert, but is also under the care of oncology. Patient is independent as far as his ambulation status as confirmed by his primary nurse, Jessi. P: DCP to continue to follow. According to hospitalist during team rounds, patient should be able to go home tomorrow after culture results are in, as long as patient is medically stable. Nanci Peraza RN/Group Chief Operator
[2019-10-19 12:02] LABS: Add Manual Diff / Slide Review NO; BUN Creatinine Ratio 13.4 (6-22); Basophils Absolute Auto 0 /uL (0-100); Basophils Percent Auto 0.6 % (0-2); Blood Urea Nitrogen 15 mg/dL (9-20); Calcium 8.9 mg/dL (8.4-10.2); Carbon Dioxide 25 mmol/L (22-32); Chloride 102 mmol/L (98-107); Eosinophils Absolute Auto 200 /uL (0-450); Eosinophils Percent Auto 4.7 % (2-4); Estimated Glomerular Filt Rate > 60.0 mL/min (>60); Glucose 102 mg/dL (80-110); HEMOLYSIS < 15 (0-50); Hematocrit 28.5 % (41-53); Hemoglobin 10.1 g/dL (13.5-17.5); Lymphocytes Absolute Auto 1900 /uL (1100-4500); Lymphocytes Percent Auto 47.6 % (25-40); Mean Corpuscular HGB Conc 35.5 % (30-36); Mean Corpuscular Hemoglobin 36.4 PG (26-34); Mean Corpuscular Volume 102.7 fL (80-100); Monocytes Absolute Auto 700 /uL (0-900); Monocytes Percent Auto 19.1 % (3-14); Neutrophils Absolute Auto 1100 /uL (1500-7000); Platelet Count 206 X10^3/uL (150-400); Potassium 3.8 mmol/L (3.4-5.1); Red Blood Cell Count 2.78 X10^6/uL (4.5-5.9); Red Cell Distribution Width 14.2 % (11.6-14.8); Sodium 133 mmol/L (137-145); White Blood Cell Count 3.9 X10^3/uL (4.5-11.0)
--- NOTE | 2019-10-19 22:40 | PC.NURSE ---
Narcan given again at 22:25 due to patient's end-tidal CO2 sustaining >45. Now at 44. RR 10, spO2 97% on 3L O2.
[2019-10-20] MEDS: LACTATED RINGERS 1,000 ML 100 ML IV ×2 (00:14→08:17)
[2019-10-20] MEDS: ACETAMINOPHEN 325 MG TABLET 650 MG PO ×2 (00:18→08:18)
[2019-10-20 00:33] VITALS: BP 108/68; PULSE 109; RESP 18; TEMP 36.7; O2SAT 97
[2019-10-20] MEDS: levoFLOXacin 750 MG/150 ML PIGGYBACK 100 MG IV (02:15)
[2019-10-20] MEDS: OXYCODONE IR 5 MG TABLET PO ×2 (02:15→08:18)
[2019-10-20 04:10] VITALS: BP 119/63; PULSE 94; RESP 20; TEMP 37.1; O2SAT 98
[2019-10-20 08:00] VITALS: BP 120/60; PULSE 99; RESP 22; TEMP 37.3; O2SAT 99
[2019-10-20] MEDS: ENOXAPARIN 40 MG/0.4 ML SYRINGE SUBCUT (08:17)
[2019-10-20] MEDS: PANTOPRAZOLE 40 MG VIAL IV (08:17)
--- NOTE | 2019-10-20 09:10 | PM.DS.1 ---
History of Present Illness History of Present Illness Date Patient Seen: 10/20/19 Time Patient Seen: 09:10 Chief complaint: headache,body aches, is cancer pt, new meds Narrative: As per ERIC Verma: Mr. 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 Patient reports symptoms onset 2-3 days ago after golfing. He states the symptoms progressively intensified with associated symptoms of nausea without vomiting and and yesterday developed body aches and headache. The patient has been self treating Tylenol. He presents tonight with severe body aches fevers and unable to get comfortable. The patient was initially found to have a lung nodule identified in February of 2019 after which he was evaluated by Oncology in March of 2019 and underwent a surgical biopsy involving wedge resection of the right upper and middle lobes of the right long in April 2016 at [facility]. Diagnosis was made from pleural fluid and tissue samples of adenosquamous carcinoma (please refer to Dr. Pelayo's comprehensive notes). The patient was initiated on chemotherapy on 05/31/2019 with carboplatin, nab-paclitaxel, and pembrolizumab (Keytruda). He had been receiving Keytruda immunotherapy every 3 weeks and has just transition to 6 week protocol on his last dose administered on 10/06/2019. Before the onset of current symptoms the patient has had significant fatigue while undergoing chemotherapy and immunotherapy. He reports sleeping 14-16 hours a day. He reports poor appetite with mild nausea following prior chemotherapeutic treatments much worse after this current round. He denies dizziness, visual changes, nasal congestion or sore throat. He does report recent development of accumulation of clear phlegm over the last few weeks. He denies complaints of chest pain, shortness of breath, coughing, wheezing or hemoptysis. She denies complaints abdominal pain but does have acid stomach/heartburn. He has had nausea that has been persistent worse after the double dose treatment regimen to started but no vomiting. He reports alternating constipation and diarrhea that he associates with using Compazine for nausea. He denies hematochezia or melena. He denies urinary symptoms of urgency burning frequency or hematuria. Upon arrival to the ER the patient had temperature 99.8?, tachycardic at 1 and 30 with blood pressure 98/66 with respirations 21 and oxygen saturation on and% on room air. Imaging reveals a small right pleural effusion, no evidence of colitis, diverticulitis or small-bowel obstruction or obstructive uropathy. Persistent nodule in the left adrenal gland is redemonstrated. CT angio of the chest finds no central pulmonary embolus or aortic dissection, small loculated right pleural effusion nodular right pleural thickening and right lower lobe atelectasis, indeterminate left adrenal nodule that has been previously demonstrated on prior studies. A 12 lead EKG is obtained finding a sinus tachycardia of 112 without ectopy or block, no ischemia or infarct noted. On laboratory analysis the patient has white count of 5.7 with increased neutrophils at 43.1%, decrease neutrophils at 37.9%, hemoglobin of 11.5, hematocrit of 33.3 and platelets of 242. His electrolytes are within normal limits and has a BUN of 14 and a creatinine of 1.08. His nonfasting glucose is 125 his liver functions are all within normal range. He has an elevated D-dimer at 849 and a lactic acid of 1.4. His procalcitonin is less than 0.05. He has a CK of 60 and a troponin of less than 0.012. Respiratory PCR is obtained with negative findings. Urinalysis shows a specific gravity of 1.020, negative for blood, leukocyte esterase, nitrites, wbc's, trace ketones and protein. In the ER the patient has received lactated Ringer sepsis protocol of 30 male per kilos, Toradol 15 mg IV, Protonix 40 mg IV and Levaquin 750 mg IV. Patient also was complaining of epigastric discomfort was given at a GI cocktail which probably resulted in nausea vomiting The patient is admitted to the medicine service for fever of unknown origin probable viral syndrome. Discharge Providers Provider Date of admission: 10/19/19 04:18 Discharge Date: 10/20/19 Primary care physician: Rocío Herbert ND Consults: 10/19/19 04:29 Consult to Discharge Planning Routine Comment: Discharge provider: Sacha Easley DO Summary Hospital Course Discharge Diagnosis: 1. Fever, acute, present on admission, improved. 2. Possible viral syndrome, possible adverse effect of immunotherapy, possible pneumonia. 3. Adenosquamous carcinoma stage IV with a right long, chronic, stable. 4. Diabetes type 2, non insulin dependent, controlled, present on admission, stable. 5. Hypertension, chronic, stable Hospital Course: This is a 64-year-old male with a history of adenosquamous carcinoma of the right long who has received chemotherapy in currently undergoing immunotherapy with Keytruda, last dose 10/06/2019 upgrading to a double dose regimen of 400 mg to be dosed every 6 weeks who was developed fevers, shaking chills, nausea and body aches progressive over the 3 days prior to admission. In the emergency room he was febrile to 100.6. He was also mildly hypotensive but responded to initial fluid resuscitation. He was started on intravenous Levaquin for possible pulmonary source as no other reasonable source was identified. His CT scan, however, appeared stable from prior imaging but cannot rule out superimposed infectious process. Further possibilities of his fever include a viral syndrome, an adverse effect his immunotherapy although this seems less likely as dose was 2 weeks ago. After initiation of antibiotics, the patient did not have a fever for greater than 24 hours and he was symptomatically improved. He was discharged home to complete a 7 total day course of Levaquin for a possible pneumonia. Exam Vital Signs (past 8 hours): - 10/20/19 04:10 10/20/19 08:00 Temperature 98.7 F 99.1 F Pulse Rate 94 H 99 H Respiratory Rate 20 22 Blood Pressure 119/63 120/60 Pulse Oximetry 98 99 Oxygen Delivery Method Room Air Oxygen Flow Rate 0 Narrative Exam Narrative: GENERAL APPEARANCE: well developed, obese male with a BMI of 33.2 who was ill-appearing. HEENT: Normocephalic, PERRLA, conjunctiva clear, sclerae anicteric, EOMs intact without nystagmus, no sinus tenderness to percussion, no rhinorrhea, mucous membranes are moist and pink, healing mucosal lesion bright buccal region. NECK/THYROID: neck supple, no JVD, no carotid bruit, no thyromegaly, trachea midline. LYMPH NODES: no cervical or supraclavicular lymphadenopathy. SKIN: Slightly pale, hot and dry, no visible lesions, rashes, ulcerations or petechiae. HEART: Tachycardic rate with regular rhythm, S1-S2, no murmur, no rubs or gallops, brisk capillary refill, no edema LUNGS: Diminished breath sounds right lower lung, no coarseness crackles or wheezing, no cough present CHEST: Symmetrical movement, no accessory muscle use, Port-A-Cath right upper chest, good tidal volume. ABDOMEN: Soft, no distention, no abdominal tenderness, no organomegaly, no flank or suprapubic tenderness, active bowel tones. BACK: Normal curvature, nontender to palpation, no CVA tenderness on percussion EXTREMITIES: moves all extremities, strength is 5/5 and symmetrical, no deformities or joint effusions. NEUROLOGIC: AAO x4, no focal neurologic deficits, cranial nerves II-XII grossly intact, sensation intact to light touch, hearing grossly normal to speech. PSYCH: Fair eye contact, linear thought, cooperative, appropriate with stable behavior Objective Labs Result Diagrams: 10/19/19 11:45 10/19/19 11:45 Labs: Laboratory Results - last 24 hr 10/19/19 10/19/19 11:45 11:45 WBC 3.9 L RBC 2.78 L Hgb 10.1 L Hct 28.5 L MCV 102.7 H MCH 36.4 H MCHC 35.5 RDW 14.2 Plt Count 206 Neut % (Auto) 28.0 L Lymph % (Auto) 47.6 H Woodruff % (Auto) 19.1 H Eos % (Auto) 4.7 H Baso % (Auto) 0.6 Neut # (Auto) 1100 L Lymph # (Auto) 1900 Woodruff # (Auto) 700 Eos # (Auto) 200 Baso # (Auto) 0 Sodium 133 L Potassium 3.8 Chloride 102 Carbon Dioxide 25 BUN 15 Creatinine 1.12 Estimated GFR > 60.0 BUN/Creatinine Ratio 13.4 Glucose 102 Calcium 8.9 Discharge Plan Discharge Plan Patient Disposition: Home Discharge comment: You were admitted to the hospital with a fever. No overt cause was found but you are being treated for a possible pneumonia with an antibiotic. You did not have a recurrence of fever after antibiotics were started. Please complete 6 more days of antibiotic therapy. Discharge orders & Medications Prescriptions: New levofloxacin 750 mg tablet 750 mg PO DAILY 6 Days Qty: 6 RF: 0 Continued lisinopril 10 mg Tablet 10 mg PO DAILY RF: 0 metformin 500 mg tablet 500 mg PO BID RF: 0 prochlorperazine maleate 10 mg tablet 10 mg PO Q6H PRN (Reason: Nausea) RF: 0 Follow up/Referrals: Rocío Herbert ND [Primary Care Provider] - Diet/Activity/Treatments Diet: Diet as Tolerated Diet comment: As tolerated Activity: As tolerated Visit Report/Discharge Packet Instructions: DI for Pneumonia -- Adult, Levofloxacin Visit Report Forms: Patient Portal/API, Stroke Signs & Symptoms Discharge Data Primary Care Provider: Rocío Herbert Attending Provider: Sacha Clark Admit Date/Time: 10/19/19 04:18 Discharges patient from system. Discharge Date/Time: 10/20/19 10:20 Quality VTE Deep Vein Thrombosis/Pulmonary Embolism Present on Admission: No
== END 2019-10-20 10:20 | disposition home or self-care (01) ==
LOC: ED 04:16 → AC 04:18 → ICU 04:57
PROVIDERS: Admitting Provider Nurse Practitioner Adult Health; Emergency Provider Emergency Medicine; PCP Naturopath; Referring Provider Emergency Medicine; Visit Provider Nurse Practitioner Adult Health
DX: C34.91 Malignant neoplasm of unspecified part of right bronchus or lung (principal); R50.9 Fever, unspecified; E11.9 Type 2 diabetes mellitus without complications; Z87.891 Personal history of nicotine dependence; I10 Essential (primary) hypertension; Z11.59 Encounter for screening for other viral diseases
CPT/HCPCS: 36415; 71045; 71275; 74177; 80048; 80053; 81003; 81015; 82550; 82962; 83036; 83605; 83735; 83880; 84145; 84484; 85025; 85379; 87040; 87633; 87635; 87797; 93005; 96361; 96365; 96366; 96372; 96375; 96376; 99285; G0378; C9113; J1642; J1650; J1885; J1956; Q9967

== ENCOUNTER 2019-11-15 12:19 | Emergency (ER) | payer BC, SELFPAY ==
[2019-10-19 05:51] VITALS: BMI 33.2
[2019-11-15] VITALS (43 sets, daily range): BP systolic 81–123; BP diastolic 45–62; PULSE 98–117; RESP 10–38; TEMP 37.1–37.5; O2SAT 96–100
--- NOTE | 2019-11-15 12:43 | ED.SEPSIS ---
HPI - Sepsis General Chief Complaint: Fever Mode of arrival: Ambulatory Source: patient Limitations: no limitations Evaluation Narrative: Patient is a 64-year-old male with known history of lung cancer, diabetes, hypertension presenting today with his body aches and overall not feeling well. His last dose of Keytruda infusion was October 05 where he says he got a double dose and he has not fully recovered. He was actually admitted to hospital October 18 through October 19 for fever no infection was found. That time he was COVID-19 negative. He continues to have overall general 50 body aches but no other symptoms. He is freezing cold today but no temperature he has not taken Tylenol or ibuprofen. Due to the persistent nausea he has had weight loss and decreased appetite. He takes Zofran home alert called cause constipation. He denies any abdominal pain Review of Systems Review of Systems ROS Unobtainable: All systems reviewed & are unremarkable except as noted in HPI and below Constitutional Constitutional: Reports anorexia, Reports body ache(s), Reports chills and Reports poor appetite ENT Ears, Nose, Mouth, and Throat: Denies dizziness Cardiovascular Cardiovascular: Denies chest pain, Denies irregular heart rhythm, Denies lightheadedness, Denies palpitations, Denies dyspnea, Denies dyspnea on exertion and Denies orthopnea Respiratory Respiratory: Denies cough, Denies dyspnea, Denies dyspnea on exertion and Denies wheezing Gastrointestinal Gastrointestinal: Denies system reviewed and no additional complaints, except as documented and Reports nausea Musculoskeletal Musculoskeletal: Reports myalgias, Denies deformity and Denies numbness Integumentary/Breasts Skin/Breast: Denies pruritus, Denies erythema, Denies rash and Denies wounds Neurologic Neurologic: Denies dizziness and Denies numbness Endocrine Endocrine: Denies palpitations Allergic/Immunologic Allergic/Immunologic: Denies wheezing Patient History Medical History Adenocarcinoma of right lung, stage 4 (Inactive) Diabetes (Acute) Hypertension (Acute) Port-A-Cath in place (Inactive) Tobacco consumption (Acute) Surgical History H/O hand surgery (Acute ~2013) H/O shoulder surgery (Acute ~1997) History of lung surgery (Acute) History of vascular access device (Acute) Family History Father Prostate cancer Social History household members: spouse Smoking Status: Former smoker alcohol intake: current substance use type: does not use Smoking Status: Former smoker alcohol intake frequency: a few times a week Substance Use Type: does not use Exam Initial Vital Signs Initial Vital Signs: Vital Signs Temperature 98.8 F 11/15/19 12:20 Pulse Rate 108 H 11/15/19 12:20 Respiratory Rate 24 11/15/19 12:20 Blood Pressure 123/55 L 11/15/19 12:20 Pulse Oximetry 98 11/15/19 12:20 GENERAL: Alert male appears to not feel well and in [no acute] distress. HEENT: Head atraumatic,EOMI, pupils reactive, face symmetric, [moist] mucous membranes CARDIOVASCULAR: Regular rate and rhythm without murmurs, rubs or gallops. RESPIRATORY: Breath sounds equal bilaterally, no wheezes rales or rhonchi. ABDOMEN: Soft, nontender. Normoactive bowel sounds all 4 quadrants. No guarding or rebound. EXTREMITIES: Normal range of motion, no clubbing or edema. Neurovascularly intact NEUROLOGICAL: Alert and oriented x4.Normal gait and speech. Cranial nerves II through XII grossly intact. SKIN: Warm, dry, no laceration, no petechiae, no rashes or lesions. Course Orders Ordered: ED Orders 11/15/19 12:35 Complete Blood Count AUTO DIFF Stat Comprehensive Metabolic Panel Stat Lactate (Lactic Acid) Stat Partial Thromboplastin Time Stat Procalcitonin Stat Prothrombin Time INR Stat 11/15/19 12:43 Blood Culture Stat 11/15/19 12:50 Respiratory Panel (Film Array) Stat 11/15/19 13:17 XR chest 1V Stat 11/15/19 14:52 CT abdomen pelvis w con Stat Discontinued Medications Hydromorphone HCl (Dilaudid) 1 mg IV NOW ONE Stop: 11/15/19 12:57 Last Admin: 11/15/19 13:04 Dose: 1 mg Documented by: VIDYA Sodium Chloride (Normal Saline 0.9%) 1,000 mls @ 1,000 mls/hr IV BOLUS ONE Stop: 11/15/19 13:42 Last Infusion: 11/15/19 14:49 Dose: 0 mls/hr Documented by: Admin: 11/15/19 12:45 Dose: 1,000 mls/hr Documented by: CANDIDO Sodium Chloride (Normal Saline 0.9%) 1,000 mls @ 1,000 mls/hr IV BOLUS ONE Stop: 11/15/19 13:42 Last Infusion: 11/15/19 14:50 Dose: 0 mls/hr Documented by: Infusion: 11/15/19 12:54 Dose: 500 mls/hr Documented by: Admin: 11/15/19 12:49 Dose: 1,000 mls/hr Documented by: CANDIDO Metoclopramide HCl (Reglan) 10 mg IV NOW ONE Stop: 11/15/19 12:57 Last Admin: 11/15/19 13:04 Dose: 10 mg Documented by: VIDYA Vital Signs Vital signs: Vital Signs - 8 hr 11/15/19 12:20 11/15/19 12:30 11/15/19 12:40 Temperature 98.8 F Pulse Rate 108 H 106 H 103 H Respiratory Rate 24 25 H 26 H Blood Pressure 123/55 L 85/50 L 81/57 L Pulse Oximetry 98 99 99 11/15/19 12:45 11/15/19 12:50 11/15/19 12:55 Temperature Pulse Rate 101 H 101 H 101 H Respiratory Rate 23 26 H 25 H Blood Pressure 111/58 L Pulse Oximetry 100 100 100 11/15/19 13:00 11/15/19 13:05 11/15/19 13:10 Temperature Pulse Rate 100 H 100 H 100 H Respiratory Rate 25 H 24 24 Blood Pressure 90/54 L Pulse Oximetry 100 100 100 11/15/19 13:15 11/15/19 13:20 11/15/19 13:25 Temperature Pulse Rate 100 H 100 H 98 H Respiratory Rate 23 17 15 Blood Pressure 91/54 L Pulse Oximetry 100 100 100 11/15/19 13:30 11/15/19 13:35 11/15/19 13:40 Temperature Pulse Rate 98 H 98 H 101 H Respiratory Rate 19 17 16 Blood Pressure 95/54 L Pulse Oximetry 100 100 99 11/15/19 13:45 11/15/19 13:46 11/15/19 13:50 Temperature Pulse Rate 107 H 104 H 102 H Respiratory Rate 24 19 17 Blood Pressure 95/45 L Pulse Oximetry 99 100 99 11/15/19 13:55 11/15/19 14:00 11/15/19 14:05 Temperature Pulse Rate 104 H 102 H 103 H Respiratory Rate 25 H 18 16 Blood Pressure 94/54 L Pulse Oximetry 98 100 96 11/15/19 14:10 11/15/19 14:15 11/15/19 14:20 Temperature Pulse Rate 104 H 104 H 104 H Respiratory Rate 23 20 22 Blood Pressure 95/53 L Pulse Oximetry 99 99 99 11/15/19 14:25 11/15/19 14:30 11/15/19 14:35 Temperature Pulse Rate 104 H 104 H 104 H Respiratory Rate 16 19 17 Blood Pressure 98/53 L Pulse Oximetry 99 99 100 11/15/19 14:40 11/15/19 14:45 11/15/19 14:50 Temperature Pulse Rate 105 H 106 H 107 H Respiratory Rate 18 20 21 Blood Pressure 101/51 L Pulse Oximetry 98 97 99 11/15/19 14:55 11/15/19 15:00 11/15/19 15:01 Temperature Pulse Rate 117 H 110 H 109 H Respiratory Rate 38 H 21 21 Blood Pressure 102/58 L Pulse Oximetry 97 99 99 11/15/19 15:14 11/15/19 15:15 11/15/19 15:20 Temperature Pulse Rate 112 H 111 H 109 H Respiratory Rate 32 H 18 Blood Pressure 101/62 Pulse Oximetry 99 98 100 11/15/19 15:25 11/15/19 15:30 11/15/19 15:35 Temperature Pulse Rate 107 H 106 H 107 H Respiratory Rate 10 L 16 17 Blood Pressure 93/54 L Pulse Oximetry 99 99 99 11/15/19 15:40 11/15/19 15:45 11/15/19 15:50 Temperature Pulse Rate 108 H 108 H Respiratory Rate 22 21 Blood Pressure 108/61 Pulse Oximetry 99 99 99 11/15/19 15:59 Temperature 99.5 F Pulse Rate Respiratory Rate Blood Pressure Pulse Oximetry MDM - Sepsis Lab Data Attestation: I reviewed the patient's lab results. Result diagrams: 11/15/19 12:35 11/15/19 12:35 Labs: Lab Results 11/15/19 11/15/19 11/15/19 Range/Units 12:35 12:35 12:35 WBC 4.0 L (4.5-11.0) X10^3/uL RBC 3.48 L (4.5-5.9) X10^6/uL Hgb 11.7 L (13.5-17.5) g/dL Hct 34.8 L (41-53) % MCV 100.0 (80-100) fL MCH 33.6 (26-34) PG MCHC 33.6 (30-36) % RDW 13.1 (11.6-14.8) % Plt Count 230 (150-400) X10^3/uL Neut % (Auto) 25.9 L (50-75) % Lymph % (Auto) 52.8 H (25-40) % [place] % (Auto) 15.7 H (3-14) % Eos % (Auto) 5.0 H (2-4) % Baso % (Auto) 0.6 (0-2) % Neut # (Auto) 1000 L (6007-3518) /uL Lymph # (Auto) 2100 (7944-8822) /uL [place] # (Auto) 600 (0-900) /uL Eos # (Auto) 200 (0-450) /uL Baso # (Auto) 0 (0-100) /uL PT (10.1-12.7) SECONDS INR (0.9-1.3) APTT (26.4-36.2) SECONDS Sodium 134 L (137-145) mmol/L Potassium 3.8 (3.4-5.1) mmol/L Chloride 101 (98-107) mmol/L Carbon Dioxide 20 L (22-32) mmol/L BUN 11 (9-20) mg/dL Creatinine 0.83 (0.66-1.25) mg/dL Estimated GFR > 60.0 (>60) mL/min BUN/Creatinine Ratio 13.3 (6-22) Glucose 149 H (80-110) mg/dL Lactate (0.7-2.1) mmol/L Calcium 9.5 (8.4-10.2) mg/dL Total Bilirubin 0.5 (0.2-1.3) mg/dL AST 35 (17-59) IU/L ALT 29 (<50) IU/L Alkaline Phosphatase 37 L (38-126) U/L Total Protein 7.0 (6.3-8.2) g/dL Albumin 3.9 (3.5-5.0) g/dL Globulin 3.1 (1.7-4.1) g/dL Albumin/Globulin Ratio 1.3 (1.0-2.8) Procalcitonin < 0.05 (<0.5) ng/mL Chlamy pneumoniae PCR (Not Detect) Adenovirus (PCR) (Not Detect) B.parapertussis DNA PCR (Not Detect) Coronavirus OC43 (PCR) (Not Detect) Coronavirus HKU1 (PCR) (Not Detect) Coronavirus 229E (PCR) (Not Detect) COVID-19 PCR (Negative) Coronavirus NL63 (PCR) (Not Detect) Human Metapneumovir PCR (Not Detect) Influenza Type A (PCR) (Not Detect) Influenza Type B (PCR) (Not Detect) M. pneumoniae (PCR) (Not Detect) Parainfluenza 1 (PCR) (Not Detect) Parainfluenza 2 (PCR) (Not Detect) Parainfluenza 3 (PCR) (Not Detect) Parainfluenza 4 (PCR) (Not Detect) RSV (PCR) (Not Detect) Entero/Rhino (PCR) (Not Detect) 11/15/19 11/15/19 11/15/19 Range/Units 12:35 12:35 12:50 WBC (4.5-11.0) X10^3/uL RBC (4.5-5.9) X10^6/uL Hgb (13.5-17.5) g/dL Hct (41-53) % MCV (80-100) fL MCH (26-34) PG MCHC (30-36) % RDW (11.6-14.8) % Plt Count (150-400) X10^3/uL Neut % (Auto) (50-75) % Lymph % (Auto) (25-40) % [place] % (Auto) (3-14) % Eos % (Auto) (2-4) % Baso % (Auto) (0-2) % Neut # (Auto) (3415-9785) /uL Lymph # (Auto) (2271-4600) /uL [place] # (Auto) (0-900) /uL Eos # (Auto) (0-450) /uL Baso # (Auto) (0-100) /uL PT 13.3 H (10.1-12.7) SECONDS INR 1.2 (0.9-1.3) APTT 38 H (26.4-36.2) SECONDS Sodium (137-145) mmol/L Potassium (3.4-5.1) mmol/L Chloride (98-107) mmol/L Carbon Dioxide (22-32) mmol/L BUN (9-20) mg/dL Creatinine (0.66-1.25) mg/dL Estimated GFR (>60) mL/min BUN/Creatinine Ratio (6-22) Glucose (80-110) mg/dL Lactate 2.1 (0.7-2.1) mmol/L Calcium (8.4-10.2) mg/dL Total Bilirubin (0.2-1.3) mg/dL AST (17-59) IU/L ALT (<50) IU/L Alkaline Phosphatase (38-126) U/L Total Protein (6.3-8.2) g/dL Albumin (3.5-5.0) g/dL Globulin (1.7-4.1) g/dL Albumin/Globulin Ratio (1.0-2.8) Procalcitonin (<0.5) ng/mL Chlamy pneumoniae PCR Not detected (Not Detect) Adenovirus (PCR) Not detected (Not Detect) B.parapertussis DNA PCR Not detected (Not Detect) Coronavirus OC43 (PCR) Not detected (Not Detect) Coronavirus HKU1 (PCR) Not detected (Not Detect) Coronavirus 229E (PCR) Not detected (Not Detect) COVID-19 PCR (Negative) Coronavirus NL63 (PCR) Not detected (Not Detect) Human Metapneumovir PCR Not detected (Not Detect) Influenza Type A (PCR) Not detected (Not Detect) Influenza Type B (PCR) Not detected (Not Detect) M. pneumoniae (PCR) Not detected (Not Detect) Parainfluenza 1 (PCR) Not detected (Not Detect) Parainfluenza 2 (PCR) Not detected (Not Detect) Parainfluenza 3 (PCR) Not detected (Not Detect) Parainfluenza 4 (PCR) Not detected (Not Detect) RSV (PCR) Not detected (Not Detect) Entero/Rhino (PCR) Not detected (Not Detect) 09/01/20 Range/Units 12:50 WBC (4.5-11.0) X10^3/uL RBC (4.5-5.9) X10^6/uL Hgb (13.5-17.5) g/dL Hct (41-53) % MCV (80-100) fL MCH (26-34) PG MCHC (30-36) % RDW (11.6-14.8) % Plt Count (150-400) X10^3/uL Neut % (Auto) (50-75) % Lymph % (Auto) (25-40) % [place] % (Auto) (3-14) % Eos % (Auto) (2-4) % Baso % (Auto) (0-2) % Neut # (Auto) (9159-4213) /uL Lymph # (Auto) (4066-8636) /uL [place] # (Auto) (0-900) /uL Eos # (Auto) (0-450) /uL Baso # (Auto) (0-100) /uL PT (10.1-12.7) SECONDS INR (0.9-1.3) APTT (26.4-36.2) SECONDS Sodium (137-145) mmol/L Potassium (3.4-5.1) mmol/L Chloride (98-107) mmol/L Carbon Dioxide (22-32) mmol/L BUN (9-20) mg/dL Creatinine (0.66-1.25) mg/dL Estimated GFR (>60) mL/min BUN/Creatinine Ratio (6-22) Glucose (80-110) mg/dL Lactate (0.7-2.1) mmol/L Calcium (8.4-10.2) mg/dL Total Bilirubin (0.2-1.3) mg/dL AST (17-59) IU/L ALT (<50) IU/L Alkaline Phosphatase (38-126) U/L Total Protein (6.3-8.2) g/dL Albumin (3.5-5.0) g/dL Globulin (1.7-4.1) g/dL Albumin/Globulin Ratio (1.0-2.8) Procalcitonin (<0.5) ng/mL Chlamy pneumoniae PCR (Not Detect) Adenovirus (PCR) (Not Detect) B.parapertussis DNA PCR (Not Detect) Coronavirus OC43 (PCR) (Not Detect) Coronavirus HKU1 (PCR) (Not Detect) Coronavirus 229E (PCR) (Not Detect) COVID-19 PCR Negative (Negative) Coronavirus NL63 (PCR) (Not Detect) Human Metapneumovir PCR (Not Detect) Influenza Type A (PCR) (Not Detect) Influenza Type B (PCR) (Not Detect) M. pneumoniae (PCR) (Not Detect) Parainfluenza 1 (PCR) (Not Detect) Parainfluenza 2 (PCR) (Not Detect) Parainfluenza 3 (PCR) (Not Detect) Parainfluenza 4 (PCR) (Not Detect) RSV (PCR) (Not Detect) Entero/Rhino (PCR) (Not Detect) Urine Dip Bedside Urine Glucose Negative Bedside Urine Bilirubin - Negative Bedside Urine Ketone - Negative Urine Specific [place] 1.015 Bedside Urine Occult Blood - Negative Bedside Urine pH 6.0 Bedside Urine Protein - Negative Bedside Urine Urobilinogen - Negative Bedside Urine Nitrite - Negative Bedside Urine Leukocytes - Negative Esterase Imaging Data Chest x-ray: Radiologist's Impression: PROCEDURE: XR CHEST 1V INDICATIONS: fever TECHNIQUE: One view of the chest was acquired. COMPARISON: [facility], , XR CHEST 1V, 10/19/2019, 2:29. [facility], , XR CHEST 2V, 05/17/2019, 10:42. FINDINGS: Surgical changes and devices: Port-A-Cath in normal position from right-sided approach. Lungs and pleura: Lungs are clear. No pleural effusions or pneumothorax. Mediastinum: Mediastinal contours appear normal. Heart size is normal. Bones and chest wall: No suspicious bony lesions. Overlying soft tissues appear unremarkable. IMPRESSION: Normal Port-A-Cath positioning, right-sided approach, no acute disease. Chronic mild interstitial prominence, which may reflect prior smoking history. No definite pneumonia found. Dictated by: Eduardo Ingram M.D. on 11/15/2019 at 14:07 Approved by: Eduardo Ingram M.D. on 11/15/2019 at 14:07 CT scan - abdomen/pelvis: Radiologist's Impression: PROCEDURE: CT ABDOMEN PELVIS W CON INDICATIONS: constipation hx of lung cancer TECHNIQUE: After the administration of intravenous contrast, 5 mm thick sections acquired from the diaphragm to the symphysis. 5 mm coronal and sagittal reformats were acquired. For radiation dose reduction, the following was used: automated exposure control, adjustment of mA and/or kV according to patient size. COMPARISON: [facility], CT, CT CHEST ABDOMEN W CON, 08/15/2019, 14:36. [facility], CT, CT CHEST ABD PEL W CON, 03/06/2019, 9:49. [facility], CT, CT ABDOMEN PELVIS W CON, 10/19/2019, 3:13. FINDINGS: Image quality: Excellent. ABDOMEN: Lung bases: Similar right lower thorax pleural thickening. Trace right pleural effusion, stable to slightly decreased. Heart size is normal. Solid organs: Liver is normal in size. Hepatic steatosis. Gallbladder is unremarkable. Biliary system is non dilated. Pancreas enhances normally. Spleen is normal in size and enhancement. Left adrenal nodule measuring 1.2 cm, (05/12), unchanged since at least 03/06/2019. Kidneys demonstrate normal size and enhancement, without hydronephrosis. Peritoneum and bowel: Bowel loops demonstrate normal wall thickness and caliber. Diverticulosis. No free fluid or air. Nodes and vessels: No retroperitoneal or mesenteric adenopathy by size criteria. Aorta and inferior vena cava are normal in size. Miscellaneous: No ventral hernias. PELVIS: Genitourinary: Bladder wall thickness is normal. Prostatomegaly. Miscellaneous: No inguinal hernias or adenopathy. Bones: No suspicious bony lesions. No vertebral body compression fractures. IMPRESSION: 1. No acute inflammatory process identified in the abdomen or pelvis. Diverticulosis without diverticulitis. 2. Similar right lower thorax pleural thickening and trace right pleural effusion. Similar mild airspace opacity in the right lower lobe. 3. No focal lesion or adenopathy seen. 4. Left adrenal nodule measuring 1.2 cm unchanged since 2019. This nodule remains indeterminate. -this could be further evaluated with MRI or adrenal washout CT if clinically indicated. Dictated by: Galdino Hernadez M.D. on 11/15/2019 at 14:18 Approved by: Galdino Hernadez M.D. on 11/15/2019 at 14:28 MDM Narrative Medical decision making narrative: Patient initially was hypotensive but quickly improved with IV fluids. He was freezing cold but never developed a temperature in the ED. No leukocytosis negative procalcitonin no site of infection. He does have blood cultures pending. He states he has not had a bowel movement in a number of weeks and feels like he is severely constipated but has absolutely no abdominal pain nausea vomiting. CT does not show any obstruction or progression of cancer. At this time recommend patient go home to rest, this is possibly reaction from his chemotherapy. He has follow-up with Oncology in 2 days. Discharge Plan Departure Patient Disposition: Home Clinical Impression: Acute viral syndrome Discharge Date/Time: 11/15/19 16:04 Instructions: DI for Viral Syndrome Activity Restrictions/Additional Instructions: *You have been diagnosed with viral syndrome *What to do: Is possible that all of your symptoms are related to your chemotherapy. At this time there is no sign of and affection no need for antibiotics. Recommend changing your bowel regimen to at things like MiraLax, Metamucil, Dulcolax to help with bowel movements. Please take these as directed indicated *Continue to take medications as directed *Follow up with your primary care provider in 2-3 days *Return to ER if you should have temperature more than 100.4?, inability to tolerate fluids, worsening pain or any new, worsening or concerning symptoms Prescriptions: No Action lisinopril 10 mg Tablet 10 mg PO DAILY RF: 0 tramadol 50 mg Tablet 50 mg PO Q8H PRN (Reason: Pain (Scale Score 4-6)) Qty: 25 RF: 0 metformin 500 mg tablet 500 mg PO BID RF: 0 prochlorperazine maleate 10 mg tablet 10 mg PO Q6H PRN (Reason: Nausea) RF: 0 Referrals: Tulio Flaherty MD [Primary Care Provider] - Franco Pelayo MD [Physician] -
[2019-11-15] MEDS: SODIUM CHLORIDE 0.9% 1,000 ML 1000 ML IV ×2 (12:45→12:49)
[2019-11-15 12:52] LABS: Add Manual Diff / Slide Review NO; Basophils Absolute Auto 0 /uL (0-100); Basophils Percent Auto 0.6 % (0-2); Eosinophils Absolute Auto 200 /uL (0-450); Hematocrit 34.8 % (41-53); Hemoglobin 11.7 g/dL (13.5-17.5); Lymphocytes Absolute Auto 2100 /uL (1100-4500); Lymphocytes Percent Auto 52.8 % (25-40); Mean Corpuscular HGB Conc 33.6 % (30-36); Mean Corpuscular Hemoglobin 33.6 PG (26-34); Monocytes Absolute Auto 600 /uL (0-900); Monocytes Percent Auto 15.7 % (3-14); Neutrophils Absolute Auto 1000 /uL (1500-7000); Neutrophils Percent Auto 25.9 % (50-75); Platelet Count 230 X10^3/uL (150-400); Red Blood Cell Count 3.48 X10^6/uL (4.5-5.9); Red Cell Distribution Width 13.1 % (11.6-14.8)
[2019-11-15 12:59] LABS: INR 1.2 (0.9-1.3); Prothrombin Time 13.3 SECONDS (10.1-12.7)
[2019-11-15 13:01] LABS: PTT Partial Thromboplastin Tim 38 SECONDS (26.4-36.2)
[2019-11-15 13:02] LABS: Alanine Aminotransferase 29 IU/L (<50); Albumin 3.9 g/dL (3.5-5.0); Albumin Globulin Ratio 1.3 (1.0-2.8); Alkaline Phosphatase 37 U/L (38-126); Aspartate Aminotransferase 35 IU/L (17-59); BUN Creatinine Ratio 13.3 (6-22); Bilirubin Total 0.5 mg/dL (0.2-1.3); Blood Urea Nitrogen 11 mg/dL (9-20); Calcium 9.5 mg/dL (8.4-10.2); Carbon Dioxide 20 mmol/L (22-32); Chloride 101 mmol/L (98-107); Estimated Glomerular Filt Rate > 60.0 mL/min (>60); Globulin 3.1 g/dL (1.7-4.1); Glucose 149 mg/dL (80-110); HEMOLYSIS < 15 (0-50); Lactate (Lactic Acid) 2.1 mmol/L (0.7-2.1); Potassium 3.8 mmol/L (3.4-5.1); Sodium 134 mmol/L (137-145)
[2019-11-15] MEDS: HYDROMORPHONE 1 MG INJ IV (13:04)
[2019-11-15] MEDS: METOCLOPRAMIDE 10 MG/2 ML INJ IV (13:04)
--- NOTE | 2019-11-15 13:17 | DI.RAD.S_ITS ---
PROCEDURE: XR CHEST 1V INDICATIONS: fever TECHNIQUE: One view of the chest was acquired. COMPARISON: [facility], CR, XR CHEST 1V, 10/19/2019, 2:29. [facility], CR, XR CHEST 2V, 05/17/2019, 10:42. FINDINGS: Surgical changes and devices: Port-A-Cath in normal position from right-sided approach. Lungs and pleura: Lungs are clear. No pleural effusions or pneumothorax. Mediastinum: Mediastinal contours appear normal. Heart size is normal. Bones and chest wall: No suspicious bony lesions. Overlying soft tissues appear unremarkable. IMPRESSION: Normal Port-A-Cath positioning, right-sided approach, no acute disease. Chronic mild interstitial prominence, which may reflect prior smoking history. No definite pneumonia found. Dictated by: Eduardo Ingram M.D. on 11/15/2019 at 14:07 Approved by: Eduardo Ingram M.D. on 11/15/2019 at 14:07
[2019-11-15 13:24] LABS: Procalcitonin < 0.05 ng/mL (<0.5)
[2019-11-15 13:53] LABS: Adenovirus Not Detected (Not Detect); Bordetella pertussis Not Detected (Not Detect); Chlamydophila pneumoniae Not Detected (Not Detect); Coronavirus 229E Not Detected (Not Detect); Coronavirus HKU1 Not Detected (Not Detect); Coronavirus NL 63 Not Detected (Not Detect); Coronavirus OC43 Not Detected (Not Detect); Human Metapneumovirus Not Detected (Not Detect); Human Rhinovirus/Enterovirus Not Detected (Not Detect); Influenza A Not Detected (Not Detect); Influenza B Not Detected (Not Detect); Mycoplasma pneumoniae Not Detected (Not Detect); Parainfluenza Virus 1 Not Detected (Not Detect); Parainfluenza Virus 2 Not Detected (Not Detect); Parainfluenza Virus 3 Not Detected (Not Detect); Parainfluenza Virus 4 Not Detected (Not Detect); Respiratory Syncytial Virus Not Detected (Not Detect)
--- NOTE | 2019-11-15 14:52 | DI.CT.S_ITS ---
PROCEDURE: CT ABDOMEN PELVIS W CON INDICATIONS: constipation hx of lung cancer TECHNIQUE: After the administration of intravenous contrast, 5 mm thick sections acquired from the diaphragm to the symphysis. 5 mm coronal and sagittal reformats were acquired. For radiation dose reduction, the following was used: automated exposure control, adjustment of mA and/or kV according to patient size. COMPARISON: [facility], CT, CT CHEST ABDOMEN W CON, 08/15/2019, 14:36. [facility], CT, CT CHEST ABD PEL W CON, 03/06/2019, 9:49. [facility], CT, CT ABDOMEN PELVIS W CON, 10/19/2019, 3:13. FINDINGS: Image quality: Excellent. ABDOMEN: Lung bases: Similar right lower thorax pleural thickening. Trace right pleural effusion, stable to slightly decreased. Heart size is normal. Solid organs: Liver is normal in size. Hepatic steatosis. Gallbladder is unremarkable. Biliary system is non dilated. Pancreas enhances normally. Spleen is normal in size and enhancement. Left adrenal nodule measuring 1.2 cm, (05/12), unchanged since at least 03/06/2019. Kidneys demonstrate normal size and enhancement, without hydronephrosis. Peritoneum and bowel: Bowel loops demonstrate normal wall thickness and caliber. Diverticulosis. No free fluid or air. Nodes and vessels: No retroperitoneal or mesenteric adenopathy by size criteria. Aorta and inferior vena cava are normal in size. Miscellaneous: No ventral hernias. PELVIS: Genitourinary: Bladder wall thickness is normal. Prostatomegaly. Miscellaneous: No inguinal hernias or adenopathy. Bones: No suspicious bony lesions. No vertebral body compression fractures. IMPRESSION: 1. No acute inflammatory process identified in the abdomen or pelvis. Diverticulosis without diverticulitis. 2. Similar right lower thorax pleural thickening and trace right pleural effusion. Similar mild airspace opacity in the right lower lobe. 3. No focal lesion or adenopathy seen. 4. Left adrenal nodule measuring 1.2 cm unchanged since 2019. This nodule remains indeterminate. -this could be further evaluated with MRI or adrenal washout CT if clinically indicated. Dictated by: Galdino Hernadez M.D. on 11/15/2019 at 14:18 Approved by: Galdino Hernadez M.D. on 11/15/2019 at 14:28
[2019-11-15 15:03] LABS: COVID19 -Nasal RAPID Negative (Negative)
== END 2019-11-15 16:04 | disposition home or self-care (01) ==
PROVIDERS: Emergency Provider Emergency Medicine; PCP Internal Medicine
DX: B34.9 Viral infection, unspecified (principal); R63.0 Anorexia; R50.9 Fever, unspecified; K59.00 Constipation, unspecified
CPT/HCPCS: 36415; 71045; 74177; 80053; 81003; 83605; 84145; 85025; 85610; 85730; 87040; 87633; 87635; 96361; 96374; 96375; 99284; J1170; J1642; J2765; Q9967

== ENCOUNTER → 2020-01-21 09:11 | Outpatient (CLI) | payer BC, SELFPAY ==
[2019-10-19 05:51] VITALS: BMI 33.2
[2020-01-23 08:01] LABS: COVID19 Sendout Not Detected (Not Detect)
== END ==
PROVIDERS: PCP Internal Medicine; Visit Provider Physician Assistant
DX: Z11.59 Encounter for screening for other viral diseases (principal)
CPT/HCPCS: 87635

== ENCOUNTER 2020-01-24 06:25 | Day surgery (SDC) | payer BC, SELFPAY ==
[2019-10-19 05:51] VITALS: BMI 33.2
[2020-01-24 06:52] VITALS: BP 112/78; PULSE 88; RESP 12; TEMP 36.6; O2SAT 98; BMI 31.5
[2020-01-24] MEDS: CATARACT EYE COMPOUND (10 DROPS/SYRINGE) 3 DROPS EYE-OP (06:59)
[2020-01-24 07:16] VITALS: BMI 31.5
--- NOTE | 2020-01-24 07:40 | P.OP_ITS ---
Operative Date/Time/Diagnoses Pre-op diagnosis: Nuclear Cataract Left eye Post-op diagnosis: same Procedure & Clinicians Same procedure as scheduled: Yes Surgeon: Trent Quiñones Anesthesia Type: MAC +/- and Sedation Operative Notes Procedure in detail: Patient brought to the operating suite. Tetracaine drops placed in the left eye. Patient was prepped and draped in sterile manner. Wire lid speculum was placed in the eye. Betadine drops were placed on the eye. This was irrigated. Lidocaine jelly was placed on the eye. A paracentesis port was created with a side-port blade. 0.1 mL 1% preservative free lidocaine was injected into the anterior chamber. The anterior chamber was deepened with viscoelastic. 2.6 mm keratome was used to create a temporal clear corneal incision. Cystotome and Utrata forceps were used to create continuous tear capsulorrhexis. Balanced salt solution was used to hydro dissect the nucleus. The phacoemulsification handpiece was inserted and the nucleus was removed using the stop and chop technique. The irrigation aspiration handpiece was inserted and the remaining cortex was removed. Anterior chamber was deepened with viscoe lastic. An Curran ZCB00 intraocular lens with a power of 20.5 was injected into the capsular bag. Irrigation aspiration handpiece was inserted and the remaining viscoelastic was removed. Incision was hydrated with balanced salt solution and found to be leak free with pressure with Weck-Anjelica sponges. 0.1 mL Vigamox injected anterior chamber. 0.3 mL Kenalog 10 mg was injected subconjunctivally. Lid speculum was removed. The patient left the operating room in excellent condition. Complications: none Post-operative Condition: stable Disposition: same day surgery
--- NOTE | 2020-01-24 07:40 | PM.PREOP ---
Pre-operative Note Interval Note History & Physical reviewed/Exam performed by Physician: Yes Changes to H&P: No
[2020-01-24] MEDS: CHONDROIDTIN/SOD HYALURONATE 1.05 ML SYRINGE INTRAOCULA (07:54)
[2020-01-24] MEDS: MOXIFLOXACIN INJ 5 MG/ML VIAL EYE-OP (07:54)
[2020-01-24] MEDS: LIDOCAINE JELLY 2% 5 ML 1 APPLIC TOP (07:54)
[2020-01-24] MEDS: TRIAMCINOLONE 50 MG/5 ML VIAL INJ (07:55)
[2020-01-24] MEDS: PHENYLEPHRINE/LIDOCAINE VIAL (OR) 0.2 ML EYE-OP (07:55)
[2020-01-24] MEDS: TETRACAINE 0.5% OPHTH DROPS 4 ML 2 DROPS EYE-OP (07:55)
[2020-01-24] MEDS: BALANCED SALT IRRIG SOLN NO.2 500 ML, EPINEPHrine 1 MG IRR (07:56)
[2020-01-24 08:05] VITALS: BP 121/84; PULSE 92; RESP 12; TEMP 36.2; O2SAT 97
== END 2020-01-24 08:15 | disposition home or self-care (01) ==
LOC: OR 06:26
PROVIDERS: PCP Internal Medicine; Referring Provider Internal Medicine; Visit Provider Ophthalmology
PROC: (CPT 66984; principal; 2020-01-24 07:45)
DX: H25.12 Age-related nuclear cataract, left eye (principal); E11.9 Type 2 diabetes mellitus without complications; I10 Essential (primary) hypertension; Z79.84 Long term (current) use of oral hypoglycemic drugs
CPT/HCPCS: 66984; J0171; J2250; J3010; J3301

== ENCOUNTER → 2020-02-04 10:27 | Outpatient (CLI) | payer BC, SELFPAY ==
[2019-10-19 05:51] VITALS: BMI 33.2
[2020-02-04 11:06] LABS: COVID19 -Nasal RAPID Negative (Negative)
== END ==
PROVIDERS: PCP Internal Medicine; Visit Provider Physician Assistant
DX: Z11.59 Encounter for screening for other viral diseases (principal)
CPT/HCPCS: 87635

== ENCOUNTER 2020-02-07 08:36 | Day surgery (SDC) | payer BC, SELFPAY ==
[2019-10-19 05:51] VITALS: BMI 33.2
[2020-02-07] MEDS: PROPARACAINE 0.5% OPHTH SOL 2 DROPS EYE-OP (08:53)
[2020-02-07] MEDS: CATARACT EYE COMPOUND (10 DROPS/SYRINGE) 3 DROPS EYE-OP (08:55)
[2020-02-07 08:58] VITALS: BP 125/82; PULSE 93; RESP 18; TEMP 36.6; O2SAT 98; BMI 32.0
--- NOTE | 2020-02-07 09:28 | PM.PREOP ---
Pre-operative Note Interval Note History & Physical reviewed/Exam performed by Physician: Yes Changes to H&P: No
--- NOTE | 2020-02-07 09:28 | PM.OP.1 ---
Operative Date/Time/Diagnoses Pre-op diagnosis: Nuclear cataract right eye Procedure & Clinicians Procedure: Cataract Surgery Same procedure as scheduled: Yes Surgeon: Trent Quiñones Anesthesia Type: MAC +/- and Sedation Operative Notes Procedure in detail: Patient brought to the operating suite. Tetracaine drops placed in the right eye. Patient was prepped and draped in sterile manner. Wire lid speculum was placed in the eye. Betadine drops were placed on the eye. This was irrigated. Lidocaine jelly was placed on the eye. A paracentesis port was created with a side-port blade. 0.1 mL 1% preservative free lidocaine was injected into the anterior chamber. The anterior chamber was deepened with viscoelastic. 2.6 mm keratome was used to create a temporal clear corneal incision. Cystotome and Utrata forceps were used to create continuous tear capsulorrhexis. Balanced salt solution was used to hydro dissect the nucleus. The phacoemulsification handpiece was inserted and the nucleus was removed using the stop and chop technique. The irrigation aspiration handpiece was inserted and the remaining cortex was removed. Anterior chamber was deepened with viscoelastic. An Curran ZCB00 intraocular lens with a power of 21.0 was injected into the capsular bag. Irrigation aspiration handpiece was inserted and the remaining viscoelastic was removed. Incision was hydrated with balanced salt solution and found to be leak free with pressure with Weck-Anjelica sponges. 0.1 mL Vigamox injected anterior chamber. 0.3 mL Kenalog 10 mg was injected subconjunctivally. Lid speculum was removed. The patient left the operating room in excellent condition. Complications: none Post-operative Condition: stable Disposition: same day surgery
[2020-02-07] MEDS: CHONDROIDTIN/SOD HYALURONATE 1.05 ML SYRINGE INTRAOCULA (09:45)
[2020-02-07] MEDS: MOXIFLOXACIN INJ 5 MG/ML VIAL EYE-OP (09:45)
[2020-02-07] MEDS: LIDOCAINE JELLY 2% 5 ML 1 APPLIC TOP (09:45)
[2020-02-07] MEDS: PHENYLEPHRINE/LIDOCAINE VIAL (OR) 0.2 ML EYE-OP (09:45)
[2020-02-07] MEDS: TETRACAINE 0.5% OPHTH DROPS 4 ML 2 DROPS EYE-OP (09:45)
[2020-02-07] MEDS: TRIAMCINOLONE 50 MG/5 ML VIAL INJ (09:45)
[2020-02-07] MEDS: BALANCED SALT IRRIG SOLN NO.2 500 ML, EPINEPHrine 1 MG IRR (09:46)
[2020-02-07 10:00] VITALS: BP 125/82; PULSE 93; RESP 18; TEMP 36.6; O2SAT 98
== END 2020-02-07 10:09 | disposition home or self-care (01) ==
PROVIDERS: PCP Internal Medicine; Referring Provider Ophthalmology; Visit Provider Ophthalmology
PROC: (CPT 66984; principal; 2020-02-07 10:15)
DX: H25.11 Age-related nuclear cataract, right eye (principal); E11.9 Type 2 diabetes mellitus without complications; Z79.84 Long term (current) use of oral hypoglycemic drugs; I10 Essential (primary) hypertension
CPT/HCPCS: 66984; J0171; J2250; J3010; J3301

== ENCOUNTER → 2020-03-02 09:15 | Outpatient (CLI) | payer BC, SELFPAY ==
[2019-10-19 05:51] VITALS: BMI 33.2
[2020-03-02 10:27] LABS: Add Manual Diff / Slide Review NO; Basophils Absolute Auto 0 /uL (0-100); Basophils Percent Auto 0.6 % (0-2); Eosinophils Absolute Auto 300 /uL (0-450); Eosinophils Percent Auto 5.9 % (2-4); Hematocrit 36.6 % (41-53); Hemoglobin 12.5 g/dL (13.5-17.5); Lymphocytes Absolute Auto 1900 /uL (1100-4500); Lymphocytes Percent Auto 38.6 % (25-40); Mean Corpuscular HGB Conc 34.2 % (30-36); Mean Corpuscular Hemoglobin 32.8 PG (26-34); Mean Corpuscular Volume 95.9 fL (80-100); Monocytes Absolute Auto 600 /uL (0-900); Monocytes Percent Auto 12.6 % (3-14); Neutrophils Absolute Auto 2000 /uL (1500-7000); Neutrophils Percent Auto 42.3 % (50-75); Platelet Count 265 X10^3/uL (150-400); Red Blood Cell Count 3.81 X10^6/uL (4.5-5.9); Red Cell Distribution Width 13.7 % (11.6-14.8); White Blood Cell Count 4.8 X10^3/uL (4.5-11.0)
[2020-03-02 10:57] LABS: Hemoglobin A1C% w Est Avg Glu 6.4 % (4.0-6.0)
[2020-03-02 11:52] LABS: Alanine Aminotransferase 26 IU/L (<50); Albumin Globulin Ratio 1.3 (1.0-2.8); Alkaline Phosphatase 51 U/L (38-126); Aspartate Aminotransferase 29 IU/L (17-59); BUN Creatinine Ratio 10.6 (6-22); Bilirubin Total 0.4 mg/dL (0.2-1.3); Blood Urea Nitrogen 9 mg/dL (9-20); Calcium 9.1 mg/dL (8.4-10.2); Carbon Dioxide 27 mmol/L (22-32); Chloride 102 mmol/L (98-107); Estimated Glomerular Filt Rate > 60.0 mL/min (>60); Globulin 3.2 g/dL (1.7-4.1); Glucose 99 mg/dL (80-110); HEMOLYSIS < 15 (0-50); Potassium 4.1 mmol/L (3.4-5.1); Sodium 135 mmol/L (137-145); Total Protein 7.2 g/dL (6.3-8.2)
[2020-03-02 12:23] LABS: Thyroid Stimulating Hormone 1.75 uIU/mL (0.47-4.68)
== END ==
PROVIDERS: Internal Medicine Hematology & Oncology; PCP Internal Medicine; Referring Provider Internal Medicine; Visit Provider Internal Medicine
DX: E11.9 Type 2 diabetes mellitus without complications (principal); I10 Essential (primary) hypertension; C34.91 Malignant neoplasm of unspecified part of right bronchus or lung
CPT/HCPCS: 36415; 80053; 83036; 84443; 85025

== ENCOUNTER → 2020-03-15 06:39 | Outpatient (CLI) | payer BC, SELFPAY ==
[2019-10-19 05:51] VITALS: BMI 33.2
--- NOTE | 2020-03-15 06:41 | DI.MRI.S_ITS ---
PROCEDURE: MR HEAD/BRAIN WO/W CON INDICATIONS: lung cancer, brain dizziness TECHNIQUE: Noncontrast axial T1 spin echo, axial T2 fast spin echo, sagittal and axial FLAIR, coronal T2 fast spin echo, axial gradient echo, axial diffusion and ADC through the brain. After the administration of contrast, axial and coronal T1 spin echo with fat saturation through the brain. COMPARISON: [facility], MR, MR HEAD/BRAIN WO/W CON, 05/13/2019, 8:29. FINDINGS: Image quality: Excellent. CSF spaces: Basal cisterns are patent. No extra-axial fluid collections. Ventricles are normal in size and shape. Brain: No midline shift. No intracranial bleeds or masses. No abnormal intracranial enhancement. There is cerebral volume loss for age. There is minimal periventricular white matter chronic small vessel ischemic change. The brainstem appears normal. Diffusion-weighted images demonstrate no acute ischemic insults. No chronic ischemic insults. Normal intravascular flow voids are present. Skull and face: Calvarial marrow is normal in signal. Orbits appear normal. Sinuses: Sinuses and mastoids appear clear. IMPRESSION: 1. Mild volume loss. Minimal small vessel ischemic disease. 2. No recent infarct. 3. No evidence of metastatic disease. Dictated by: Harsha Vick M.D. on 03/15/2020 at 9:25 Approved by: Harsha Vick M.D. on 03/15/2020 at 9:27
== END ==
PROVIDERS: PCP Internal Medicine; Referring Provider Internal Medicine Hematology & Oncology; Visit Provider Internal Medicine Hematology & Oncology
DX: C34.91 Malignant neoplasm of unspecified part of right bronchus or lung (principal); R42 Dizziness and giddiness
CPT/HCPCS: 70553; A9579

== ENCOUNTER → 2020-05-17 10:23 | Outpatient (CLI) | payer MEDICARE, OTHER, SELFPAY ==
[2019-10-19 05:51] VITALS: BMI 33.2
--- NOTE | 2020-05-17 11:14 | DI.CT.S_ITS ---
PROCEDURE: CT CHEST ABD PEL W CON INDICATIONS: lung cancer TECHNIQUE: After the administration of oral and intravenous contrast, 5 mm thick sections acquired from the lung apices to the symphysis. 5 mm coronal and sagittal reformats were performed, with additional 7 mm coronal MIP reformats through the lungs. For radiation dose reduction, the following was used: automated exposure control, adjustment of mA and/or kV according to patient size. COMPARISON: [facility], CT, CT CHEST ABDOMEN W CON, 09/30/2019, 9:42. [facility], CT, CT ANGIO CHEST PE PROTOCOL, 10/19/2019, 3:13. [facility], CT, CT ABDOMEN PELVIS W CON, 11/15/2019, 14:59. [facility], CT, CT CHEST ABD PEL W CON, 03/06/2019, 9:49. FINDINGS: Image quality: Excellent. CHEST: Lungs and pleura: Circumferential irregular pleural thickening in the right lung with lobulated, mildly enhancing soft tissue and trace consolidation and effusion at the right lung base. Linear irregular scarring at the right lung apex. Left lung is clear. Central and peripheral airways are patent. Mediastinum: Heart size is normal. Minor coronary artery calcification. No pericardial effusion. Several small mediastinal lymph nodes are present, fairly stable in size and number compared to the prior study. No bulky or new mediastinal or hilar adenopathy by size criteria. Thoracic aorta and central pulmonary arteries are normal in size. Esophagus is normal in caliber. No hiatal hernia. Chest wall: Right MediPort is in place. No axillary or supraclavicular adenopathy by size criteria. Thyroid gland is normal . ABDOMEN: Solid organs: Liver is normal size and mildly diffusely hypodense. There is a tiny left lobe hypodensity, stable compared to prior studies, likely a cyst. Gallbladder is normal . Biliary system is non dilated. Pancreas enhances normally. Spleen is normal in size and enhancement. 1.4 x 1.1 cm medial limb left adrenal nodule. No right adrenal nodules.. Kidneys demonstrate normal size and enhancement, without hydronephrosis. Peritoneum and bowel: Bowel loops demonstrate normal wall thickness and caliber. Moderate descending and sigmoid diverticulosis. Occasional proximal colon diverticula. No free fluid or air. Nodes and vessels: No retroperitoneal or mesenteric adenopathy by size criteria. Aorta and inferior vena cava are normal in size. Miscellaneous: No ventral hernias. PELVIS: Genitourinary: Bladder wall thickness is normal. Moderate prostatomegaly. Surgical clips of prior vasectomy. Miscellaneous: No inguinal hernias or adenopathy. Bones: No suspicious bony lesions. No vertebral body compression fractures. Degenerative disc calcification at L5-S1. IMPRESSION: 1. Over time, there has been slight interval increase in trace, nodular right lung base consolidation and minimal increase in the trace right pleural effusion. This may be scarring, though early recurrence or pleural metastasis is not excluded. 2. No new or worsening adenopathy in the chest, abdomen, or pelvis. 3. Mild hepatic steatosis. 4. Stable, indeterminate left adrenal nodule. 5. Diverticulosis without acute diverticulitis. Dictated by: Lisset Kessler M.D. on 05/17/2020 at 12:34 Approved by: Lisset Kessler M.D. on 05/17/2020 at 12:57
== END ==
PROVIDERS: PCP Internal Medicine; Referring Provider Internal Medicine Hematology & Oncology; Visit Provider Internal Medicine Hematology & Oncology
DX: C34.91 Malignant neoplasm of unspecified part of right bronchus or lung (principal); K76.0 Fatty (change of) liver, not elsewhere classified; K57.90 Diverticulosis of intestine, part unspecified, without perforation or abscess without bleeding
CPT/HCPCS: 71260; 74177; Q9967

== ENCOUNTER 2020-07-11 09:45 | Outpatient (RCR) | payer MEDICARE, OTHER, SELFPAY ==
[2019-10-19 05:51] VITALS: BMI 33.2
--- NOTE | 2020-05-09 17:18 | PT.OIE ---
Current Diagnoses Sciatica, right side (05/09/20) Dorsalgia, unspecified (05/09/20) Abnormal posture (05/09/20) Past Medical History Adenocarcinoma of right lung, stage 4 Adrenal insufficiency BPH w urinary obs/LUTS Diabetes History of colonic polyps Hypertension Port-A-Cath in place Tobacco consumption Past Surgical History (Last Reviewed 11/15/19 @ 13:32 by Zamzam Cartagena DO) H/O hand surgery (~2013) H/O shoulder surgery (~1997) History of lung surgery History of vascular access device Visit Care Team Role Provider Type Tulio Flaherty MD Attending Provider Physician Primary Care Provider Referring Provider Specialty: Internal Medicine Address: [address] [place] [address], [address], [place], [employer] Email: [email or web address] Physical Therapy Initial Evaluation PT-OP-A Visit Information Start: 05/09/20 14:26 Freq: Status: Active Protocol: Document 05/09/20 15:15 AW (Rec: 05/09/20 15:18 AW [id number]) Out-Patient Physical Therapy Visit Information Visit Information Visit Type Initial Evaluation Visit Start Time 14:30 Visit Stop Time 15:15 Total Visit Minutes 45 Visit Number 1 Number of OUTREACH WORKER Visits 0 Evaluation Information Evaluation Date 05/09/20 PT-OP-B Current Condition Start: 05/09/20 14:26 Freq: Status: Active Protocol: Document 05/09/20 15:15 AW (Rec: 05/09/20 15:18 AW [id number]) Current Condition History of Current Condition Onset Date one month Current Complaints low back pain and bilateral leg pain History of Current Condition Pt complains of low back and bilateral leg pain with burning numbness in both lateral thighs but worse on the right. He is able to go for a walk, but tends to tighten up after a while and feels he has to limp until it releases. He also reports shooting pain on right lateral thigh and to the calf. Pt believes his greatest barrier is having been much more sedentary than usual over the past year due to chemotherapy and COVID restrictions. Pt was diagnosed with stage 4 lung cancer in April 2019. He is followed by oncology at [facility] and underwent chemotherapy. He was started on a maintenance dose of Keytruda following chemo but he became ill and now suffers adrenal insufficiency. He was treated with prednisone taper which he has now finished. Pt also reports he was feeling woozy and recently changed BP meds with good result. Prior Treatments and Tests weekly chiropractic treatment Future Testing and Treatments Planned CT CAP 05/17/20 to follow up with oncology Treatment Goals Patient/Caregiver Goals Pt wants to feel better so he can work in his shop, play golf, and walk in the chu with . Prior Functional Status Baseline Function- ADL's Independent Baseline Function- Mobility Independent Baseline Function- Gait No AD Baseline Function- Work/School Pt is retired Baseline Function- Recreation/Hobbies Pt is able to work in his wood shop making custom furniture and cabinets. He enjoys playing golf. He was able to enjoy walks in the chu with his . Current Functional Impairments (Reported) Functional Limitations- ADL's Difficulty and pain with dressing tasks Functional Limitations- Mobility/Gait Unable to walk as far as he would like Functional Limitations- Recreation/ Pain with woodworking, unable Hobbies to play golf, does not tolerate walks on uneven terrain. Personal Factors Other Personal Factors That May Effect Pt's [facility] Back score Therapy/Recovery indicates medium risk of poor outcomes or chronicity. PT-OP-C Subjective Start: 05/09/20 14:26 Freq: Status: Active Protocol: Document 05/09/20 15:15 AW (Rec: 05/09/20 16:52 AW [email or web address]) OP-PT Subjective Patient Comments Patient Comments Pt is hoping to find safe ways to move and improve his overall mobility. Patient Questionnaires Other Questionnaire Name and Score [facility] STarT Back Screening Tool: Total score of 7; Subscore of 3 indicating medium risk of poor prognosis OP-PT Pain Assessment Pain Assessment Grid Paper Pain Assessment Grid Completed Yes: low back 6; right lateral leg 4-5; left lateral thigh 3 PT-OP-D Balance Start: 05/09/20 14:26 Freq: Status: Active Protocol: Document 05/09/20 15:15 AW (Rec: 05/09/20 16:52 AW [email or web address]) OP-PT Balance Assessment Sitting Balance Static Sitting Balance Ability Normal Dynamic Sitting Balance Ability Good Standing Balance Static Standing Balance Ability Good Dynamic Standing Balance Ability Good Device Used no AD Balance Tests Single Limb Standing Single Limb- Right 5 seconds Single Limb- Left 15 seconds Arechiga Fall Scale Copyright Permission PT-OP-F Manual Assessment Start: 05/09/20 14:26 Freq: Status: Active Protocol: Document 05/09/20 15:15 AW (Rec: 05/09/20 16:52 AW [email or web address]) Manual Assessments Soft Tissue Assessment Soft Tissue Mobility Assessment Increased density of lumbar paraspinals in L4-S1 region as well as bilateral QL. Joint Mobility Assessment Joint Mobility Assessment Decreased PA glide L4-S1 PT-OP-G Mobility & Gait Start: 05/09/20 14:26 Freq: Status: Active Protocol: Document 05/09/20 15:15 AW (Rec: 05/09/20 16:52 AW [email or web address]) OP Mobility Evaluation Bed Mobility Rolling IND Supine to and from Sit IND Transfers Sit to Stand requires upper extremity push off on thighs on 2/3 attempts OP Gait Assessment Gait Gait Assistance Required: Independent Distance (Feet) 100 Assistive Devices Assistive Device None Orthotic/Prosthetic Devices or Brace: No Gait Deviations General Gait Pattern Antalgic,Decreased Stride Length,Decreased Feet Clearance,Flexed Trunk,Lateral Trunk Lean,Wide Based Gait Factors Limiting Gait Function Factors Limiting Gait Function Decreased Sensation,Decreased Strength,Limited Range of Motion,Pain Comments Gait Comments Pt ambulates with wide JOSEFINA and externally rotated hips. Slow to initiate due to stiffness but quality improves with distance. PT-OP-J Posture/Palpation/Skin Start: 05/09/20 14:26 Freq: Status: Active Protocol: Document 05/09/20 15:15 AW (Rec: 05/09/20 16:52 AW [email or web address]) Posture Evaluation Position Standing Evaluation View Lateral Head/C-Spine Posture Forward Head Hip Posture (L) Externally Rotated,(R) Externally Rotated Comments Posture Comments decreased lumbar lordosis PT-OP-K Range of Motion Start: 05/09/20 14:26 Freq: Status: Active Protocol: Document 05/09/20 15:15 AW (Rec: 05/09/20 17:17 AW [email or web address]) Lumbar Spine Range of Motion Lumbar Spine Active Degrees Testing Position Standing Flexion 56 Extension 20 ROM Limitations Pain Comments Fingertips 4 from knee joint line bilaterally with lateral flexion. Rotation WNL. Both lateral flexion and rotation are painful. Hip Goniometric Range of Motion Hip ROM Limitations Comments Hip flexion limited in supine due to habitus/soft tissue. IR limited bilaterally. Extension ~10 degrees B. Knee Goniometric Range of Motion Knee ROM Limitations Comments Knee ROM WNL and without pain PT-OP-L Special Tests Start: 05/09/20 14:26 Freq: Status: Active Protocol: Document 05/09/20 15:15 AW (Rec: 05/09/20 17:17 AW [email or web address]) Special Tests Lumbar Spine Special Tests Manual Traction Test Results positive Comments relieving Slump Comments no shooting pain; posterior tightness even in least provocative position Hip Special Tests Scour Test Test Results negative bilaterally PT-OP-M Strength Start: 05/09/20 14:26 Freq: Status: Active Protocol: Document 05/09/20 15:15 AW (Rec: 05/09/20 17:17 AW [email or web address]) Hip Strength Hip Manual Muscle Testing Right Flexion (L2) 4+ Good+ Extension (S1) 3+ Fair+ Abduction 4 Good External Rotation 4+ Good+ Internal Rotation 4 Good Left Flexion (L2) 4+ Good+ Extension (S1) 3+ Fair+ Abduction 4 Good External Rotation 4+ Good+ Internal Rotation 4 Good PT-OP-T Assessment and Plan Start: 05/09/20 14:26 Freq: Status: Active Protocol: Document 05/09/20 15:15 AW (Rec: 05/09/20 17:17 AW [email or web address]) Physical Therapy Assessment Rehab Potential Rehabilitation Potential Good Evaluation Complexity Number of Personal Factors/Comorbidities 1-2 Number of Body Systems Impaired 3 Clinical Presentation at Evaluation Evolving Impairments Impairments Activity Tolerance,Balance, Functional Activities,Gait, Pain,Posture,ROM,Sensation, Soft Tissue Mobility,Strength Goals Three Impairment pain with initiation of gait Short Term Goal (STG) Pt will be able to sit 10 minutes and then stand to initiate gait without complaint of stiffness or increased pain. STG Duration 06/20/20 Mcc Goal (LTG) Pt will walk 1/2 mile on uneven terrain without pain to improve his ability to participate in recreational activities such as golf or hiking with his . LTG Duration 08/06/20 Two Impairment medium risk for chronicity Short Term Goal (STG) Pt will score low risk on Ozzie STarT Back tool for reduction in risk of chronic pain STG Duration 06/06/20 One Impairment Pt lacks appropriate exercise program Short Term Goal (STG) Pt will be independent with [facility] for support of therapy services provided in clinic. 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 Onset was approximately one month ago without inciting incident. He was diagnosed with stage 4 lung cancer one year ago and has been through chemotherapy and attempted maintenance therapy with Keytruda but has discontinued. He continues to be followed by oncology at [facility]. Pt reports he has been more sedentary over the past year than at any other time in his life. On evaluation, pt presents with significant weakness in hip extension and abduction. This clinician is unable to reproduce lateral leg pain with provocation. Muscle length in the posterior chain and in hip flexors is also significantly limited. These impairments are likely both precipitated and perpetuated by the patient's relative immobility. He would benefit from skilled PT to address these findings and to improve his ability to return to recreational activities including working in his wood shop, golfing, and hiking with his . Physical Therapy Plan Frequency and Duration Frequency of Treatment 2x/Week Duration of Treatment 3 months Plan of Care Start Date 05/09/20 Plan of Care End Date 08/06/20 Therapeutic Interventions Therapeutic Interventions Balance Training,Gait Training ,Home Exercise Program,Joint Mobilizations,Manual Therapy, Neuromuscular Re-education, Patient/Caregiver Education, Self-Care/Home Management,Soft Tissue Mobilization,Taping, Therapeutic Activities, Therapeutic Exercises Modalities Cold Pack/Ice Massage,Electric Stimulation,Hot Packs Next Visit Focus/Plan Next Note Type Treatment Note Next Visit Plan Initiate stretching to improve hip mobility. Initiate gentle lumbar ROM
--- NOTE | 2020-05-09 17:18 | PT.OPPOC ---
Physical, Occupational & Speech Therapy At [facility] Current Diagnoses Sciatica, right side (05/09/20) Dorsalgia, unspecified (05/09/20) Abnormal posture (05/09/20) Visit Care Team Role Provider Type Tulio Flaherty MD Attending Provider Physician Primary Care Provider Referring Provider Specialty: Internal Medicine Address: [address] [place] [address], [facility] [address], [place], [facility] Email: [email or web address] Plan Of Care PT-OP-T Assessment and Plan Start: 05/09/20 14:26 Freq: Status: Active Protocol: Document 05/09/20 15:15 AW (Rec: 05/09/20 17:17 AW [email or web address]) Physical Therapy Assessment Rehab Potential Rehabilitation Potential Good Evaluation Complexity Number of Personal Factors/Comorbidities 1-2 Number of Body Systems Impaired 3 Clinical Presentation at Evaluation Evolving Impairments Impairments Activity Tolerance,Balance, Functional Activities,Gait, Pain,Posture,ROM,Sensation, Soft Tissue Mobility,Strength Goals Three Impairment pain with initiation of gait Short Term Goal (STG) Pt will be able to sit 10 minutes and then stand to initiate gait without complaint of stiffness or increased pain. STG Duration 06/20/20 Meter Installer Goal (LTG) Pt will walk 1/2 mile on uneven terrain without pain to improve his ability to participate in recreational activities such as golf or hiking with his . LTG Duration 08/06/20 Two Impairment medium risk for chronicity Short Term Goal (STG) Pt will score low risk on Ozzie STarT Back tool for reduction in risk of chronic pain STG Duration 06/06/20 One Impairment Pt lacks appropriate exercise program Short Term Goal (STG) Pt will be independent with [facility] for support of therapy services provided in clinic. 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 Onset was approximately one month ago without inciting incident. He was diagnosed with stage 4 lung cancer one year ago and has been through chemotherapy and attempted maintenance therapy with Keytruda but has discontinued. He continues to be followed by oncology at [facility]. Pt reports he has been more sedentary over the past year than at any other time in his life. On evaluation, pt presents with significant weakness in hip extension and abduction. This clinician is unable to reproduce lateral leg pain with provocation. Muscle length in the posterior chain and in hip flexors is also significantly limited. These impairments are likely both precipitated and perpetuated by the patient's relative immobility. He would benefit from skilled PT to address these findings and to improve his ability to return to recreational activities including working in his wood shop, golfing, and hiking with his . Physical Therapy Plan Frequency and Duration Frequency of Treatment 2x/Week Duration of Treatment 3 months Plan of Care Start Date 05/09/20 Plan of Care End Date 08/06/20 Therapeutic Interventions Therapeutic Interventions Balance Training,Gait Training ,Home Exercise Program,Joint Mobilizations,Manual Therapy, Neuromuscular Re-education, Patient/Caregiver Education, Self-Care/Home Management,Soft Tissue Mobilization,Taping, Therapeutic Activities, Therapeutic Exercises Modalities Cold Pack/Ice Massage,Electric Stimulation,Hot Packs Next Visit Focus/Plan Next Note Type Treatment Note Next Visit Plan Initiate stretching to improve hip mobility. Initiate gentle lumbar ROM Plan of Care Dates Plan of Care Start Date 05/09/20 Plan of Care End Date 08/06/20 Electronically Signed by: Marcella Johnson PT 05/09/20 [id number] Please Sign and Return: I have reviewed this Plan of Care and certify that the skilled therapy services above are required to meet the patient?s needs. Physician Signature Date Printed Name and Credentials Clinical Instructor Signature Printed Name and Credentials
--- NOTE | 2020-05-14 14:50 | PT.OTN ---
Current Diagnoses Sciatica, right side (05/14/20) Dorsalgia, unspecified (05/14/20) Abnormal posture (05/14/20) Physical Therapy Treatment Note PT-OP-A Visit Information Start: 05/09/20 14:26 Freq: Status: Active Protocol: Document 05/14/20 09:35 MA (Rec: 05/14/20 10:17 MA [id number]) Out-Patient Physical Therapy Visit Information Visit Information Visit Type Treatment Note Visit Start Time 09:33 Visit Stop Time 10:14 Total Visit Minutes 41 Visit Number 2 Number of VALET ATTENDANT Visits 1 PT-OP-B Current Condition Start: 05/09/20 14:26 Freq: Status: Active Protocol: Document 05/09/20 15:15 AW (Rec: 05/09/20 15:18 AW [id number]) Current Condition History of Current Condition Onset Date one month Current Complaints low back pain and bilateral leg pain History of Current Condition Pt complains of low back and bilateral leg pain with burning numbness in both lateral thighs but worse on the right. He is able to go for a walk, but tends to tighten up after a while and feels he has to limp until it releases. He also reports shooting pain on right lateral thigh and to the calf. Pt believes his greatest barrier is having been much more sedentary than usual over the past year due to chemotherapy and COVID restrictions. Pt was diagnosed with stage 4 lung cancer in April 2019. He is followed by oncology at and underwent chemotherapy. He was started on a maintenance dose of Keytruda following chemo but he became ill and now suffers adrenal insufficiency. He was treated with prednisone taper which he has now finished. Pt also reports he was feeling woozy and recently changed BP meds with good result. Prior Treatments and Tests weekly chiropractic treatment Future Testing and Treatments Planned CT CAP 05/17/20 to follow up with oncology Treatment Goals Patient/Caregiver Goals Pt wants to feel better so he can work in his shop, play golf, and walk in the chu with . Prior Functional Status Baseline Function- ADL's Independent Baseline Function- Mobility Independent Baseline Function- Gait No AD Baseline Function- Work/School Pt is retired Baseline Function- Recreation/Hobbies Pt is able to work in his wood shop making custom furniture and cabinets. He enjoys playing golf. He was able to enjoy walks in the [place]u with his . Current Functional Impairments (Reported) Functional Limitations- ADL's Difficulty and pain with dressing tasks Functional Limitations- Mobility/Gait Unable to walk as far as he would like Functional Limitations- Recreation/ Pain with woodworking, unable Hobbies to play golf, does not tolerate walks on uneven terrain. Personal Factors Other Personal Factors That May Effect Pt's Ozzie Start Back score Therapy/Recovery indicates medium risk of poor outcomes or chronicity. PT-OP-C Subjective Start: 05/09/20 14:26 Freq: Status: Active Protocol: Document 05/14/20 09:35 MA (Rec: 05/14/20 10:17 MA [id number]) OP-PT Subjective Patient Comments Patient Comments Pt states my back always bothers me. It bothers me more when I change positions. Currently his R side just below ribs posteriorly is bothering him which worries him due to his cancer history PT-OP-D Balance Start: 05/09/20 14:26 Freq: Status: Active Protocol: Document 05/09/20 15:15 AW (Rec: 05/09/20 16:52 AW [email or web address]) OP-PT Balance Assessment Sitting Balance Static Sitting Balance Ability Normal Dynamic Sitting Balance Ability Good Standing Balance Static Standing Balance Ability Good Dynamic Standing Balance Ability Good Device Used no AD Balance Tests Single Limb Standing Single Limb- Right 5 seconds Single Limb- Left 15 seconds Arechiga Fall Scale Copyright Permission PT-OP-F Manual Assessment Start: 05/09/20 14:26 Freq: Status: Active Protocol: Document 05/09/20 15:15 AW (Rec: 05/09/20 16:52 AW [email or web address]) Manual Assessments Soft Tissue Assessment Soft Tissue Mobility Assessment Increased density of lumbar paraspinals in L4-S1 region as well as bilateral QL. Joint Mobility Assessment Joint Mobility Assessment Decreased PA glide L4-S1 PT-OP-G Mobility & Gait Start: 05/09/20 14:26 Freq: Status: Active Protocol: Document 05/09/20 15:15 AW (Rec: 05/09/20 16:52 AW [email or web address]) OP Mobility Evaluation Bed Mobility Rolling IND Supine to and from Sit IND Transfers Sit to Stand requires upper extremity push off on thighs on 2/3 attempts OP Gait Assessment Gait Gait Assistance Required: Independent Distance (Feet) 100 Assistive Devices Assistive Device None Orthotic/Prosthetic Devices or Brace: No Gait Deviations General Gait Pattern Antalgic,Decreased Stride Length,Decreased Feet Clearance,Flexed Trunk,Lateral Trunk Lean,Wide Based Gait Factors Limiting Gait Function Factors Limiting Gait Function Decreased Sensation,Decreased Strength,Limited Range of Motion,Pain Comments Gait Comments Pt ambulates with wide JOSEFINA and externally rotated hips. Slow to initiate due to stiffness but quality improves with distance. PT-OP-J Posture/Palpation/Skin Start: 05/09/20 14:26 Freq: Status: Active Protocol: Document 05/09/20 15:15 AW (Rec: 05/09/20 16:52 AW [email or web address]) Posture Evaluation Position Standing Evaluation View Lateral Head/C-Spine Posture Forward Head Hip Posture (L) Externally Rotated,(R) Externally Rotated Comments Posture Comments decreased lumbar lordosis PT-OP-K Range of Motion Start: 05/09/20 14:26 Freq: Status: Active Protocol: Document 05/09/20 15:15 AW (Rec: 05/09/20 17:17 AW [email or web address]) Lumbar Spine Range of Motion Lumbar Spine Active Degrees Testing Position Standing Flexion 56 Extension 20 ROM Limitations Pain Comments Fingertips 4 from knee joint line bilaterally with lateral flexion. Rotation WNL. Both lateral flexion and rotation are painful. Hip Goniometric Range of Motion Hip ROM Limitations Comments Hip flexion limited in supine due to habitus/soft tissue. IR limited bilaterally. Extension ~10 degrees B. Knee Goniometric Range of Motion Knee ROM Limitations Comments Knee ROM WNL and without pain PT-OP-L Special Tests Start: 05/09/20 14:26 Freq: Status: Active Protocol: Document 05/09/20 15:15 AW (Rec: 05/09/20 17:17 AW [email or web address]) Special Tests Lumbar Spine Special Tests Manual Traction Test Results positive Comments relieving Slump Comments no shooting pain; posterior tightness even in least provocative position Hip Special Tests Scour Test Test Results negative bilaterally PT-OP-M Strength Start: 05/09/20 14:26 Freq: Status: Active Protocol: Document 05/09/20 15:15 AW (Rec: 05/09/20 17:17 AW [email or web address]) Hip Strength Hip Manual Muscle Testing Right Flexion (L2) 4+ Good+ Extension (S1) 3+ Fair+ Abduction 4 Good External Rotation 4+ Good+ Internal Rotation 4 Good Left Flexion (L2) 4+ Good+ Extension (S1) 3+ Fair+ Abduction 4 Good External Rotation 4+ Good+ Internal Rotation 4 Good PT-OP-Q Treatments Start: 05/09/20 14:26 Freq: Status: Active Protocol: Document 05/14/20 09:35 MA (Rec: 05/14/20 10:17 MA [id number]) Therapeutic Exercises Supine Exercises Stretch Supine Exercise Name HS with belt Side bilateral Reps/Minutes 30 sec ea LTR Supine Exercise Name Lower Trunk Rotation Side bilateral Reps/Minutes x8 BKFO Supine Exercise Name Bent knee fallout Reps/Minutes x8 Pelvic Tilts Reps/Minutes x8 Sidelying Exercises Open Book Side bilateral Reps/Minutes x8 ea Manual Therapy Treatment Soft Tissue Mobilization HS Body Location Gadiel HS Mobilization Type Rolling,Sustained Pressure Intensity/Depth Moderate Body Position Supine Comments Mod-deep pressure Self-Care/Home Management Treatment Education Patient Education Home Exercise Program Other Education Added pelvic tilts, lower trunk rotation, open book, and HS stretch supine with belt to HEP PT-OP-T Assessment and Plan Start: 05/09/20 14:26 Freq: Status: Active Protocol: Document 05/14/20 09:35 MA (Rec: 05/14/20 10:17 MA [id number]) Physical Therapy Assessment Goals Three Impairment pain with initiation of gait Short Term Goal (STG) Pt will be able to sit 10 minutes and then stand to initiate gait without complaint of stiffness or increased pain. STG Duration 06/20/20 Elevator Operator Service Goal (LTG) Pt will walk 1/2 mile on uneven terrain without pain to improve his ability to participate in recreational activities such as golf or hiking with his . LTG Duration 08/06/20 Two Impairment medium risk for chronicity Short Term Goal (STG) Pt will score low risk on Ozzie STarT Back tool for reduction in risk of chronic pain STG Duration 06/06/20 One Impairment Pt lacks appropriate exercise program Short Term Goal (STG) Pt will be independent with HEP for support of therapy services provided in clinic. STG Duration 06/06/20 Assessment Summary Assessment Pt had no tenderness to palpation below posterior ribs . He states the pain only happens occassionally which worries him because he had rib pain anteriorly which led drs to find his adenocarcinoma in 2019. Pt had good tolerance to all stretches/exercises during session having no increase in LBP. Added pelvic tilts, LTR, open book, and HS stretch supine with belt to HEP. Pt states he likes to put his leg up on a chair while standing to stretch his HS- will review next session for proper form. Anmol did have increased LBP when rolling from supine to SL. Physical Therapy Plan Frequency and Duration Frequency of Treatment 2x/Week Duration of Treatment 3 months Plan of Care Start Date 05/09/20 Plan of Care End Date 08/06/20 Therapeutic Interventions Therapeutic Interventions Balance Training,Gait Training ,Home Exercise Program,Joint Mobilizations,Manual Therapy, Neuromuscular Re-education, Patient/Caregiver Education, Self-Care/Home Management,Soft Tissue Mobilization,Taping, Therapeutic Activities, Therapeutic Exercises Modalities Cold Pack/Ice Massage,Electric Stimulation,Hot Packs Next Visit Focus/Plan Next Note Type Treatment Note Next Visit Plan Review all HEP exercises, initiate gentle lumbar ROM, check pt's form when performing HS with leg up on elevated surface.
--- NOTE | 2020-05-23 17:06 | PT.OTN ---
Current Diagnoses Sciatica, right side (05/23/20) Dorsalgia, unspecified (05/23/20) Abnormal posture (05/23/20) Physical Therapy Treatment Note PT-OP-A Visit Information Start: 05/09/20 14:26 Freq: Status: Active Protocol: Document 05/23/20 15:27 AW (Rec: 05/23/20 17:06 AW [email or web address]) Out-Patient Physical Therapy Visit Information Visit Information Visit Type Treatment Note Visit Start Time 15:15 Visit Stop Time 16:00 Total Visit Minutes 45 Visit Number 3 Number of EMT B Visits 0 Evaluation Information Evaluation Date 05/09/20 PT-OP-B Current Condition Start: 05/09/20 14:26 Freq: Status: Active Protocol: Document 05/09/20 15:15 AW (Rec: 05/09/20 15:18 AW [id number]) Current Condition History of Current Condition Onset Date one month Current Complaints low back pain and bilateral leg pain History of Current Condition Pt complains of low back and bilateral leg pain with burning numbness in both lateral thighs but worse on the right. He is able to go for a walk, but tends to tighten up after a while and feels he has to limp until it releases. He also reports shooting pain on right lateral thigh and to the calf. Pt believes his greatest barrier is having been much more sedentary than usual over the past year due to chemotherapy and COVID restrictions. Pt was diagnosed with stage 4 lung cancer in April 2019. He is followed by oncology at [facility] and underwent chemotherapy. He was started on a maintenance dose of Keytruda following chemo but he became ill and now suffers adrenal insufficiency. He was treated with prednisone taper which he has now finished. Pt also reports he was feeling woozy and recently changed BP meds with good result. Prior Treatments and Tests weekly chiropractic treatment Future Testing and Treatments Planned CT CAP 05/17/20 to follow up with oncology Treatment Goals Patient/Caregiver Goals Pt wants to feel better so he can work in his shop, play golf, and walk in the chu with . Prior Functional Status Baseline Function- ADL's Independent Baseline Function- Mobility Independent Baseline Function- Gait No AD Baseline Function- Work/School Pt is retired Baseline Function- Recreation/Hobbies Pt is able to work in his wood shop making custom furniture and cabinets. He enjoys playing golf. He was able to enjoy walks in the [place]u with his . Current Functional Impairments (Reported) Functional Limitations- ADL's Difficulty and pain with dressing tasks Functional Limitations- Mobility/Gait Unable to walk as far as he would like Functional Limitations- Recreation/ Pain with woodworking, unable Hobbies to play golf, does not tolerate walks on uneven terrain. Personal Factors Other Personal Factors That May Effect Pt's Ozzie Start Back score Therapy/Recovery indicates medium risk of poor outcomes or chronicity. PT-OP-C Subjective Start: 05/09/20 14:26 Freq: Status: Active Protocol: Document 05/23/20 15:27 AW (Rec: 05/23/20 17:06 AW [email or web address]) OP-PT Subjective Patient Comments Patient Comments I went for a walk around my neighborhood today and didn't have to stop. And my last scan for oncology was clear so I have a lot to celebrate. PT-OP-D Balance Start: 05/09/20 14:26 Freq: Status: Active Protocol: Document 05/09/20 15:15 AW (Rec: 05/09/20 16:52 AW [email or web address]) OP-PT Balance Assessment Sitting Balance Static Sitting Balance Ability Normal Dynamic Sitting Balance Ability Good Standing Balance Static Standing Balance Ability Good Dynamic Standing Balance Ability Good Device Used no AD Balance Tests Single Limb Standing Single Limb- Right 5 seconds Single Limb- Left 15 seconds Arechiga Fall Scale Copyright Permission PT-OP-F Manual Assessment Start: 05/09/20 14:26 Freq: Status: Active Protocol: Document 05/09/20 15:15 AW (Rec: 05/09/20 16:52 AW [email or web address]) Manual Assessments Soft Tissue Assessment Soft Tissue Mobility Assessment Increased density of lumbar paraspinals in L4-S1 region as well as bilateral QL. Joint Mobility Assessment Joint Mobility Assessment Decreased PA glide L4-S1 PT-OP-G Mobility & Gait Start: 05/09/20 14:26 Freq: Status: Active Protocol: Document 05/09/20 15:15 AW (Rec: 05/09/20 16:52 AW [email or web address]) OP Mobility Evaluation Bed Mobility Rolling IND Supine to and from Sit IND Transfers Sit to Stand requires upper extremity push off on thighs on 2/3 attempts OP Gait Assessment Gait Gait Assistance Required: Independent Distance (Feet) 100 Assistive Devices Assistive Device None Orthotic/Prosthetic Devices or Brace: No Gait Deviations General Gait Pattern Antalgic,Decreased Stride Length,Decreased Feet Clearance,Flexed Trunk,Lateral Trunk Lean,Wide Based Gait Factors Limiting Gait Function Factors Limiting Gait Function Decreased Sensation,Decreased Strength,Limited Range of Motion,Pain Comments Gait Comments Pt ambulates with wide JOSEFINA and externally rotated hips. Slow to initiate due to stiffness but quality improves with distance. PT-OP-J Posture/Palpation/Skin Start: 05/09/20 14:26 Freq: Status: Active Protocol: Document 05/09/20 15:15 AW (Rec: 05/09/20 16:52 AW [email or web address]) Posture Evaluation Position Standing Evaluation View Lateral Head/C-Spine Posture Forward Head Hip Posture (L) Externally Rotated,(R) Externally Rotated Comments Posture Comments decreased lumbar lordosis PT-OP-K Range of Motion Start: 05/09/20 14:26 Freq: Status: Active Protocol: Document 05/09/20 15:15 AW (Rec: 05/09/20 17:17 AW [email or web address]) Lumbar Spine Range of Motion Lumbar Spine Active Degrees Testing Position Standing Flexion 56 Extension 20 ROM Limitations Pain Comments Fingertips 4 from knee joint line bilaterally with lateral flexion. Rotation WNL. Both lateral flexion and rotation are painful. Hip Goniometric Range of Motion Hip ROM Limitations Comments Hip flexion limited in supine due to habitus/soft tissue. IR limited bilaterally. Extension ~10 degrees B. Knee Goniometric Range of Motion Knee ROM Limitations Comments Knee ROM WNL and without pain PT-OP-L Special Tests Start: 05/09/20 14:26 Freq: Status: Active Protocol: Document 05/09/20 15:15 AW (Rec: 05/09/20 17:17 AW [email or web address]) Special Tests Lumbar Spine Special Tests Manual Traction Test Results positive Comments relieving Slump Comments no shooting pain; posterior tightness even in least provocative position Hip Special Tests Scour Test Test Results negative bilaterally PT-OP-M Strength Start: 05/09/20 14:26 Freq: Status: Active Protocol: Document 05/09/20 15:15 AW (Rec: 05/09/20 17:17 AW [email or web address]) Hip Strength Hip Manual Muscle Testing Right Flexion (L2) 4+ Good+ Extension (S1) 3+ Fair+ Abduction 4 Good External Rotation 4+ Good+ Internal Rotation 4 Good Left Flexion (L2) 4+ Good+ Extension (S1) 3+ Fair+ Abduction 4 Good External Rotation 4+ Good+ Internal Rotation 4 Good PT-OP-Q Treatments Start: 05/09/20 14:26 Freq: Status: Active Protocol: Document 05/23/20 15:27 AW (Rec: 05/23/20 16:02 AW [id number]) Therapeutic Exercises Supine Exercises Stretch Supine Exercise Name HS with therapist assist and with belt Side bilateral Reps/Minutes 30 sec ea Comments contract/relax with therapist LTR Supine Exercise Name Lower Trunk Rotation Side bilateral Reps/Minutes x8 Comments cued for core facilitation BKFO Supine Exercise Name Bent knee fallout Reps/Minutes x8 Pelvic Tilts Reps/Minutes x8 Prone Exercises child's pose Prone Exercise Name child's pose Reps/Minutes 60 sec Comments with STM lumbar paraspinals Sitting Exercises seated flexion stretch Sitting Exercise Name seated flexion stretch Reps/Minutes 30 sec x 2 Comments forward and with hands walked to each side Manual Therapy Treatment Soft Tissue Mobilization HS Body Location Gadiel HS Mobilization Type Rolling,Sustained Pressure Intensity/Depth Moderate Body Position Supine Comments Mod-deep pressure Self-Care/Home Management Treatment Education Other Education Nothing added today. PT-OP-T Assessment and Plan Start: 05/09/20 14:26 Freq: Status: Active Protocol: Document 05/23/20 15:27 AW (Rec: 05/23/20 17:06 AW [email or web address]) Physical Therapy Assessment Impairments Impairments Activity Tolerance,Balance, Functional Activities,Gait, Pain,Posture,ROM,Sensation, Soft Tissue Mobility,Strength Goals Three Impairment pain with initiation of gait Short Term Goal (STG) Pt will be able to sit 10 minutes and then stand to initiate gait without complaint of stiffness or increased pain. STG Duration 06/20/20 Screen Printing Machine Operator Helper Goal (LTG) Pt will walk 1/2 mile on uneven terrain without pain to improve his ability to participate in recreational activities such as golf or hiking with his . LTG Duration 08/06/20 Two Impairment medium risk for chronicity Short Term Goal (STG) Pt will score low risk on Ozzie STarT Back tool for reduction in risk of chronic pain STG Duration 06/06/20 One Impairment Pt lacks appropriate exercise program Short Term Goal (STG) Pt will be independent with [facility] for support of therapy services provided in clinic. STG Duration 06/06/20 Assessment Summary Assessment Transitions between sidelying and supine/prone continue to provoke pain. Pt is otherwise happy with finding ways to move which feel comfortable and safe for him. Physical Therapy Plan Frequency and Duration Frequency of Treatment 2x/Week Duration of Treatment 3 months Plan of Care Start Date 05/09/20 Plan of Care End Date 08/06/20 Therapeutic Interventions Therapeutic Interventions Balance Training,Gait Training ,Home Exercise Program,Joint Mobilizations,Manual Therapy, Neuromuscular Re-education, Patient/Caregiver Education, Self-Care/Home Management,Soft Tissue Mobilization,Taping, Therapeutic Activities, Therapeutic Exercises Modalities Cold Pack/Ice Massage,Electric Stimulation,Hot Packs Next Visit Focus/Plan Next Note Type Treatment Note Next Visit Plan Review all HEP exercises, initiate gentle lumbar ROM, check pt's form when performing HS with leg up on elevated surface.
--- NOTE | 2020-05-25 13:00 | PT.OTN ---
Current Diagnoses Sciatica, right side (05/25/20) Dorsalgia, unspecified (05/25/20) Abnormal posture (05/25/20) Physical Therapy Treatment Note PT-OP-A Visit Information Start: 05/09/20 14:26 Freq: Status: Active Protocol: Document 05/25/20 09:47 MA (Rec: 05/25/20 10:30 MA [id number]) Out-Patient Physical Therapy Visit Information Visit Information Visit Type Treatment Note Visit Start Time 09:45 Visit Stop Time 10:28 Total Visit Minutes 43 Visit Number 4 Number of SIGN PAINTER Visits 1 PT-OP-B Current Condition Start: 05/09/20 14:26 Freq: Status: Active Protocol: Document 05/09/20 15:15 AW (Rec: 05/09/20 15:18 AW [id number]) Current Condition History of Current Condition Onset Date one month Current Complaints low back pain and bilateral leg pain History of Current Condition Pt complains of low back and bilateral leg pain with burning numbness in both lateral thighs but worse on the right. He is able to go for a walk, but tends to tighten up after a while and feels he has to limp until it releases. He also reports shooting pain on right lateral thigh and to the calf. Pt believes his greatest barrier is having been much more sedentary than usual over the past year due to chemotherapy and COVID restrictions. Pt was diagnosed with stage 4 lung cancer in April 2019. He is followed by oncology at [facility] and underwent chemotherapy. He was started on a maintenance dose of Keytruda following chemo but he became ill and now suffers adrenal insufficiency. He was treated with prednisone taper which he has now finished. Pt also reports he was feeling woozy and recently changed BP meds with good result. Prior Treatments and Tests weekly chiropractic treatment Future Testing and Treatments Planned CT CAP 05/17/20 to follow up with oncology Treatment Goals Patient/Caregiver Goals Pt wants to feel better so he can work in his shop, play golf, and walk in the chu with . Prior Functional Status Baseline Function- ADL's Independent Baseline Function- Mobility Independent Baseline Function- Gait No AD Baseline Function- Work/School Pt is retired Baseline Function- Recreation/Hobbies Pt is able to work in his wood shop making custom furniture and cabinets. He enjoys playing golf. He was able to enjoy walks in the chu with his . Current Functional Impairments (Reported) Functional Limitations- ADL's Difficulty and pain with dressing tasks Functional Limitations- Mobility/Gait Unable to walk as far as he would like Functional Limitations- Recreation/ Pain with woodworking, unable Hobbies to play golf, does not tolerate walks on uneven terrain. Personal Factors Other Personal Factors That May Effect Pt's Ozzie Start Back score Therapy/Recovery indicates medium risk of poor outcomes or chronicity. PT-OP-C Subjective Start: 05/09/20 14:26 Freq: Status: Active Protocol: Document 05/25/20 09:47 MA (Rec: 05/25/20 10:30 MA [id number]) OP-PT Subjective Patient Comments Patient Comments I got a theragun and have been using it all over my legs and back. It feels good. PT-OP-D Balance Start: 05/09/20 14:26 Freq: Status: Active Protocol: Document 05/09/20 15:15 AW (Rec: 05/09/20 16:52 AW [email or web address]) OP-PT Balance Assessment Sitting Balance Static Sitting Balance Ability Normal Dynamic Sitting Balance Ability Good Standing Balance Static Standing Balance Ability Good Dynamic Standing Balance Ability Good Device Used no AD Balance Tests Single Limb Standing Single Limb- Right 5 seconds Single Limb- Left 15 seconds Arechiga Fall Scale Copyright Permission PT-OP-F Manual Assessment Start: 05/09/20 14:26 Freq: Status: Active Protocol: Document 05/09/20 15:15 AW (Rec: 05/09/20 16:52 AW [email or web address]) Manual Assessments Soft Tissue Assessment Soft Tissue Mobility Assessment Increased density of lumbar paraspinals in L4-S1 region as well as bilateral QL. Joint Mobility Assessment Joint Mobility Assessment Decreased PA glide L4-S1 PT-OP-G Mobility & Gait Start: 05/09/20 14:26 Freq: Status: Active Protocol: Document 05/09/20 15:15 AW (Rec: 05/09/20 16:52 AW [email or web address]) OP Mobility Evaluation Bed Mobility Rolling IND Supine to and from Sit IND Transfers Sit to Stand requires upper extremity push off on thighs on 2/3 attempts OP Gait Assessment Gait Gait Assistance Required: Independent Distance (Feet) 100 Assistive Devices Assistive Device None Orthotic/Prosthetic Devices or Brace: No Gait Deviations General Gait Pattern Antalgic,Decreased Stride Length,Decreased Feet Clearance,Flexed Trunk,Lateral Trunk Lean,Wide Based Gait Factors Limiting Gait Function Factors Limiting Gait Function Decreased Sensation,Decreased Strength,Limited Range of Motion,Pain Comments Gait Comments Pt ambulates with wide JOSEFINA and externally rotated hips. Slow to initiate due to stiffness but quality improves with distance. PT-OP-J Posture/Palpation/Skin Start: 05/09/20 14:26 Freq: Status: Active Protocol: Document 05/09/20 15:15 AW (Rec: 05/09/20 16:52 AW [email or web address]) Posture Evaluation Position Standing Evaluation View Lateral Head/C-Spine Posture Forward Head Hip Posture (L) Externally Rotated,(R) Externally Rotated Comments Posture Comments decreased lumbar lordosis PT-OP-K Range of Motion Start: 05/09/20 14:26 Freq: Status: Active Protocol: Document 05/09/20 15:15 AW (Rec: 05/09/20 17:17 AW [email or web address]) Lumbar Spine Range of Motion Lumbar Spine Active Degrees Testing Position Standing Flexion 56 Extension 20 ROM Limitations Pain Comments Fingertips 4 from knee joint line bilaterally with lateral flexion. Rotation WNL. Both lateral flexion and rotation are painful. Hip Goniometric Range of Motion Hip ROM Limitations Comments Hip flexion limited in supine due to habitus/soft tissue. IR limited bilaterally. Extension ~10 degrees B. Knee Goniometric Range of Motion Knee ROM Limitations Comments Knee ROM WNL and without pain PT-OP-L Special Tests Start: 05/09/20 14:26 Freq: Status: Active Protocol: Document 05/09/20 15:15 AW (Rec: 05/09/20 17:17 AW [email or web address]) Special Tests Lumbar Spine Special Tests Manual Traction Test Results positive Comments relieving Slump Comments no shooting pain; posterior tightness even in least provocative position Hip Special Tests Scour Test Test Results negative bilaterally PT-OP-M Strength Start: 05/09/20 14:26 Freq: Status: Active Protocol: Document 05/09/20 15:15 AW (Rec: 05/09/20 17:17 AW [email or web address]) Hip Strength Hip Manual Muscle Testing Right Flexion (L2) 4+ Good+ Extension (S1) 3+ Fair+ Abduction 4 Good External Rotation 4+ Good+ Internal Rotation 4 Good Left Flexion (L2) 4+ Good+ Extension (S1) 3+ Fair+ Abduction 4 Good External Rotation 4+ Good+ Internal Rotation 4 Good PT-OP-Q Treatments Start: 05/09/20 14:26 Freq: Status: Active Protocol: Document 05/25/20 09:47 MA (Rec: 05/25/20 10:30 MA [id number]) Therapeutic Exercises Supine Exercises LTR Supine Exercise Name Lower Trunk Rotation Side bilateral Reps/Minutes x8 Comments cued for core facilitation Pelvic Tilts Reps/Minutes 10x5 sec hold Sidelying Exercises Open Book Side bilateral Reps/Minutes 10x 5 sec hold Manual Therapy Treatment Soft Tissue Mobilization Iliac Crest Body Location Iliac crest scour Mobilization Type Other Intensity/Depth Deep Body Position Prone Comments bilateral HS Body Location Gadiel HS Mobilization Type Rolling,Sustained Pressure Intensity/Depth Moderate Body Position Supine Comments Mod-deep pressure Neuro Re-Education Treatment Balance Activities SLS Details SLS bilateral Surface solid Equipment none Reps/Duration 30 sec Comments Min A x1 for LOB on RLE Hurdles Equipment 3 hurdles Reps/Duration 2x ea Comments 1. fwd stepping 2. lateral stepping PT-OP-T Assessment and Plan Start: 05/09/20 14:26 Freq: Status: Active Protocol: Document 05/25/20 09:47 MA (Rec: 05/25/20 10:30 MA [id number]) Physical Therapy Assessment Goals Three Impairment pain with initiation of gait Short Term Goal (STG) Pt will be able to sit 10 minutes and then stand to initiate gait without complaint of stiffness or increased pain. STG Duration 06/20/20 Wood Coater Goal (LTG) Pt will walk 1/2 mile on uneven terrain without pain to improve his ability to participate in recreational activities such as golf or hiking with his . LTG Duration 08/06/20 Two Impairment medium risk for chronicity Short Term Goal (STG) Pt will score low risk on Ozzie STarT Back tool for reduction in risk of chronic pain STG Duration 06/06/20 One Impairment Pt lacks appropriate exercise program Short Term Goal (STG) Pt will be independent with [facility] for support of therapy services provided in clinic. 05/25/20 STG Duration Achieved Assessment Summary Assessment Pt's back has been doing much better recently and transitioning between positions like supine to SL is hurting less than usual. Began balance work with pt needing Min A during SLS on RLE due to LOB and tripping over one gary when stepping fwd. Pt would benefit from continued balance training to better prepare him for returning to golf and trail walks. Physical Therapy Plan Frequency and Duration Frequency of Treatment 2x/Week Duration of Treatment 3 months Plan of Care Start Date 05/09/20 Plan of Care End Date 08/06/20 Therapeutic Interventions Therapeutic Interventions Balance Training,Gait Training ,Home Exercise Program,Joint Mobilizations,Manual Therapy, Neuromuscular Re-education, Patient/Caregiver Education, Self-Care/Home Management,Soft Tissue Mobilization,Taping, Therapeutic Activities, Therapeutic Exercises Modalities Cold Pack/Ice Massage,Electric Stimulation,Hot Packs Next Visit Focus/Plan Next Note Type Treatment Note Next Visit Plan Add exercises for core strengthening to HEP, work on balance stimulating uneven terrain for returning to golf, continue HS stretches, open book, LTR
--- NOTE | 2020-05-30 13:49 | PT.OTN ---
Current Diagnoses Sciatica, right side (05/30/20) Dorsalgia, unspecified (05/30/20) Abnormal posture (05/30/20) Physical Therapy Treatment Note PT-OP-A Visit Information Start: 05/09/20 14:26 Freq: Status: Active Protocol: Document 05/30/20 09:38 MA (Rec: 05/30/20 10:26 MA [id number]) Out-Patient Physical Therapy Visit Information Visit Information Visit Type Treatment Note Visit Start Time 09:34 Visit Stop Time 10:15 Total Visit Minutes 41 Visit Number 5 Number of PRODUCE RUNNER Visits 2 PT-OP-B Current Condition Start: 05/09/20 14:26 Freq: Status: Active Protocol: Document 05/09/20 15:15 AW (Rec: 05/09/20 15:18 AW [id number]) Current Condition History of Current Condition Onset Date one month Current Complaints low back pain and bilateral leg pain History of Current Condition Pt complains of low back and bilateral leg pain with burning numbness in both lateral thighs but worse on the right. He is able to go for a walk, but tends to tighten up after a while and feels he has to limp until it releases. He also reports shooting pain on right lateral thigh and to the calf. Pt believes his greatest barrier is having been much more sedentary than usual over the past year due to chemotherapy and COVID restrictions. Pt was diagnosed with stage 4 lung cancer in April 2019. He is followed by oncology at [facility] and underwent chemotherapy. He was started on a maintenance dose of Keytruda following chemo but he became ill and now suffers adrenal insufficiency. He was treated with prednisone taper which he has now finished. Pt also reports he was feeling woozy and recently changed BP meds with good result. Prior Treatments and Tests weekly chiropractic treatment Future Testing and Treatments Planned CT CAP 05/17/20 to follow up with oncology Treatment Goals Patient/Caregiver Goals Pt wants to feel better so he can work in his shop, play golf, and walk in the chu with . Prior Functional Status Baseline Function- ADL's Independent Baseline Function- Mobility Independent Baseline Function- Gait No AD Baseline Function- Work/School Pt is retired Baseline Function- Recreation/Hobbies Pt is able to work in his wood shop making custom furniture and cabinets. He enjoys playing golf. He was able to enjoy walks in the [place]u with his . Current Functional Impairments (Reported) Functional Limitations- ADL's Difficulty and pain with dressing tasks Functional Limitations- Mobility/Gait Unable to walk as far as he would like Functional Limitations- Recreation/ Pain with woodworking, unable Hobbies to play golf, does not tolerate walks on uneven terrain. Personal Factors Other Personal Factors That May Effect Pt's Ozzie Start Back score Therapy/Recovery indicates medium risk of poor outcomes or chronicity. PT-OP-C Subjective Start: 05/09/20 14:26 Freq: Status: Active Protocol: Document 05/30/20 09:38 MA (Rec: 05/30/20 10:26 MA [id number]) OP-PT Subjective Patient Comments Patient Comments I went on a hike Thursday and got lost and ended up walking for 2 hours but my back didn't hurt after. My has been complaining about my lifting technique so can we practice that today. PT-OP-D Balance Start: 05/09/20 14:26 Freq: Status: Active Protocol: Document 05/09/20 15:15 AW (Rec: 05/09/20 16:52 AW [email or web address]) OP-PT Balance Assessment Sitting Balance Static Sitting Balance Ability Normal Dynamic Sitting Balance Ability Good Standing Balance Static Standing Balance Ability Good Dynamic Standing Balance Ability Good Device Used no AD Balance Tests Single Limb Standing Single Limb- Right 5 seconds Single Limb- Left 15 seconds Arechiga Fall Scale Copyright Permission PT-OP-F Manual Assessment Start: 05/09/20 14:26 Freq: Status: Active Protocol: Document 05/09/20 15:15 AW (Rec: 05/09/20 16:52 AW [email or web address]) Manual Assessments Soft Tissue Assessment Soft Tissue Mobility Assessment Increased density of lumbar paraspinals in L4-S1 region as well as bilateral QL. Joint Mobility Assessment Joint Mobility Assessment Decreased PA glide L4-S1 PT-OP-G Mobility & Gait Start: 05/09/20 14:26 Freq: Status: Active Protocol: Document 05/09/20 15:15 AW (Rec: 05/09/20 16:52 AW [email or web address]) OP Mobility Evaluation Bed Mobility Rolling IND Supine to and from Sit IND Transfers Sit to Stand requires upper extremity push off on thighs on 2/3 attempts OP Gait Assessment Gait Gait Assistance Required: Independent Distance (Feet) 100 Assistive Devices Assistive Device None Orthotic/Prosthetic Devices or Brace: No Gait Deviations General Gait Pattern Antalgic,Decreased Stride Length,Decreased Feet Clearance,Flexed Trunk,Lateral Trunk Lean,Wide Based Gait Factors Limiting Gait Function Factors Limiting Gait Function Decreased Sensation,Decreased Strength,Limited Range of Motion,Pain Comments Gait Comments Pt ambulates with wide JOSEFINA and externally rotated hips. Slow to initiate due to stiffness but quality improves with distance. PT-OP-J Posture/Palpation/Skin Start: 05/09/20 14:26 Freq: Status: Active Protocol: Document 05/09/20 15:15 AW (Rec: 05/09/20 16:52 AW [email or web address]) Posture Evaluation Position Standing Evaluation View Lateral Head/C-Spine Posture Forward Head Hip Posture (L) Externally Rotated,(R) Externally Rotated Comments Posture Comments decreased lumbar lordosis PT-OP-K Range of Motion Start: 05/09/20 14:26 Freq: Status: Active Protocol: Document 05/09/20 15:15 AW (Rec: 05/09/20 17:17 AW [email or web address]) Lumbar Spine Range of Motion Lumbar Spine Active Degrees Testing Position Standing Flexion 56 Extension 20 ROM Limitations Pain Comments Fingertips 4 from knee joint line bilaterally with lateral flexion. Rotation WNL. Both lateral flexion and rotation are painful. Hip Goniometric Range of Motion Hip ROM Limitations Comments Hip flexion limited in supine due to habitus/soft tissue. IR limited bilaterally. Extension ~10 degrees B. Knee Goniometric Range of Motion Knee ROM Limitations Comments Knee ROM WNL and without pain PT-OP-L Special Tests Start: 05/09/20 14:26 Freq: Status: Active Protocol: Document 05/09/20 15:15 AW (Rec: 05/09/20 17:17 AW [email or web address]) Special Tests Lumbar Spine Special Tests Manual Traction Test Results positive Comments relieving Slump Comments no shooting pain; posterior tightness even in least provocative position Hip Special Tests Scour Test Test Results negative bilaterally PT-OP-M Strength Start: 05/09/20 14:26 Freq: Status: Active Protocol: Document 05/09/20 15:15 AW (Rec: 05/09/20 17:17 AW [email or web address]) Hip Strength Hip Manual Muscle Testing Right Flexion (L2) 4+ Good+ Extension (S1) 3+ Fair+ Abduction 4 Good External Rotation 4+ Good+ Internal Rotation 4 Good Left Flexion (L2) 4+ Good+ Extension (S1) 3+ Fair+ Abduction 4 Good External Rotation 4+ Good+ Internal Rotation 4 Good PT-OP-Q Treatments Start: 05/09/20 14:26 Freq: Status: Active Protocol: Document 05/30/20 09:38 MA (Rec: 05/30/20 10:26 MA [id number]) Therapeutic Exercises Supine Exercises Supine March Side bilateral Reps/Minutes 10 Comments focus on TrA activation Stretch Supine Exercise Name HS stretch with belt Side bilateral Equipment Used belt Reps/Minutes 60 sec LTR Supine Exercise Name Lower Trunk Rotation Side bilateral Reps/Minutes x8 Comments cued for core facilitation Pelvic Tilts Reps/Minutes 10x5 sec hold Sidelying Exercises Open Book Side bilateral Reps/Minutes 10x 5 sec hold Standing Exercises Lunge Stretch Standing Exercise Name Modified runners lunge holding bar for support Side bilateral Reps/Minutes 60 sec Other Exercises Modified Plank Other Exercise Name forearm plank on elevated surface Reps/Minutes 2x15 seconds Therapeutic Activity Therapeutic Activity Lifting Comments Practicing proper lifting techniques Neuro Re-Education Treatment Balance Activities Tandem Stance Surface Blue foam Reps/Duration 60 sec SLS Details SLS bilateral Surface blue foam Equipment none Reps/Duration 60 sec Comments Min A x1 for LOB on RLE Hurdles Equipment 4 hurdles Reps/Duration 4x Comments 1. fwd stepping 2. fwd stepping onto blue/ green foam Self-Care/Home Management Treatment Education Patient Education Home Exercise Program Other Education Supine marches and elevated modified plank added to HEP PT-OP-T Assessment and Plan Start: 05/09/20 14:26 Freq: Status: Active Protocol: Document 05/30/20 09:38 MA (Rec: 05/30/20 10:26 MA [id number]) Physical Therapy Assessment Goals Three Impairment pain with initiation of gait Short Term Goal (STG) Pt will be able to sit 10 minutes and then stand to initiate gait without complaint of stiffness or increased pain. STG Duration 06/20/20 Tool Planer Set Up Operator Goal (LTG) Pt will walk 1/2 mile on uneven terrain without pain to improve his ability to participate in recreational activities such as golf or hiking with his . LTG Duration 08/06/20 Two Impairment medium risk for chronicity Short Term Goal (STG) Pt will score low risk on Ozzie STarT Back tool for reduction in risk of chronic pain STG Duration 06/06/20 One Impairment Pt lacks appropriate exercise program Short Term Goal (STG) Pt will be independent with HEP for support of therapy services provided in clinic. 05/25/20 STG Duration Achieved Assessment Summary Assessment Pt is challenged standing on blue foam, needing Min A during SLS. Worked on proper lifting mechanics today due to pt request, with cues reminding pt to bring object closer to chest and for thoracic extension. Added an elevated plank and supine marches to HEP for core strengthening. Pt is starting to go on more hikes and will soon begin golfing again. He would benefit from continued therapy for increasing lynn LE flexability and core strength to decrease low back pain during outdoor activities. Physical Therapy Plan Frequency and Duration Frequency of Treatment 2x/Week Duration of Treatment 3 months Plan of Care Start Date 05/09/20 Plan of Care End Date 08/06/20 Therapeutic Interventions Therapeutic Interventions Balance Training,Gait Training ,Home Exercise Program,Joint Mobilizations,Manual Therapy, Neuromuscular Re-education, Patient/Caregiver Education, Self-Care/Home Management,Soft Tissue Mobilization,Taping, Therapeutic Activities, Therapeutic Exercises Modalities Cold Pack/Ice Massage,Electric Stimulation,Hot Packs Next Visit Focus/Plan Next Note Type Treatment Note Next Visit Plan Review core HEP exercises, work on balance stimulating uneven terrain for returning to golf/hiking, continue HS stretches, open book, LTR
--- NOTE | 2020-06-01 10:47 | PT.OTN ---
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 He is able to go for a walk, but tends to tighten up after a while and feels he has to limp until it releases. He also reports shooting pain on right lateral thigh and to the calf. Pt believes his greatest barrier is having been much more sedentary than usual over the past year due to chemotherapy and COVID restrictions. Pt was diagnosed with stage 4 lung cancer in April 2019. He is followed by oncology at [facility] and underwent chemotherapy. He was started on a maintenance dose of Keytruda following chemo but he became ill and now suffers adrenal insufficiency. He was treated with prednisone taper which he has now finished. Pt also reports he was feeling woozy and recently changed BP meds with good result. Prior Treatments and Tests weekly chiropractic treatment Future Testing and Treatments Planned CT CAP 05/17/20 to follow up with oncology Treatment Goals Patient/Caregiver Goals Pt wants to feel better so he can work in his shop, play golf, and walk in the chu with . Prior Functional Status Baseline Function- ADL's Independent Baseline Function- Mobility Independent Baseline Function- Gait No AD Baseline Function- Work/School Pt is retired Baseline Function- Recreation/Hobbies Pt is able to work in his wood shop making custom furniture and cabinets. He enjoys playing golf. He was able to enjoy walks in the chu with his . Current Functional Impairments (Reported) Functional Limitations- ADL's Difficulty and pain with dressing tasks Functional Limitations- Mobility/Gait Unable to walk as far as he would like Functional Limitations- Recreation/ Pain with woodworking, unable Hobbies to play golf, does not tolerate walks on uneven terrain. Personal Factors Other Personal Factors That May Effect Pt's Ozzie Start Back score Therapy/Recovery indicates medium risk of poor outcomes or chronicity. PT-OP-C Subjective Start: 05/09/20 14:26 Freq: Status: Active Protocol: Document 06/01/20 09:49 MA (Rec: 06/01/20 10:31 MA [id number]) OP-PT Subjective Patient Comments Patient Comments I went on a 2.5 mile hike after our last appt and after my ankles hurt but my back pain didn't increase PT-OP-D Balance Start: 05/09/20 14:26 Freq: Status: Active Protocol: Document 05/09/20 15:15 AW (Rec: 05/09/20 16:52 AW [email or web address]) OP-PT Balance Assessment Sitting Balance Static Sitting Balance Ability Normal Dynamic Sitting Balance Ability Good Standing Balance Static Standing Balance Ability Good Dynamic Standing Balance Ability Good Device Used no AD Balance Tests Single Limb Standing Single Limb- Right 5 seconds Single Limb- Left 15 seconds Arechiga Fall Scale Copyright Permission PT-OP-F Manual Assessment Start: 05/09/20 14:26 Freq: Status: Active Protocol: Document 05/09/20 15:15 AW (Rec: 05/09/20 16:52 AW [email or web address]) Manual Assessments Soft Tissue Assessment Soft Tissue Mobility Assessment Increased density of lumbar paraspinals in L4-S1 region as well as bilateral QL. Joint Mobility Assessment Joint Mobility Assessment Decreased PA glide L4-S1 PT-OP-G Mobility & Gait Start: 05/09/20 14:26 Freq: Status: Active Protocol: Document 05/09/20 15:15 AW (Rec: 05/09/20 16:52 AW [email or web address]) OP Mobility Evaluation Bed Mobility Rolling IND Supine to and from Sit IND Transfers Sit to Stand requires upper extremity push off on thighs on 2/3 attempts OP Gait Assessment Gait Gait Assistance Required: Independent Distance (Feet) 100 Assistive Devices Assistive Device None Orthotic/Prosthetic Devices or Brace: No Gait Deviations General Gait Pattern Antalgic,Decreased Stride Length,Decreased Feet Clearance,Flexed Trunk,Lateral Trunk Lean,Wide Based Gait Factors Limiting Gait Function Factors Limiting Gait Function Decreased Sensation,Decreased Strength,Limited Range of Motion,Pain Comments Gait Comments Pt ambulates with wide JOSEFINA and externally rotated hips. Slow to initiate due to stiffness but quality improves with distance. PT-OP-J Posture/Palpation/Skin Start: 05/09/20 14:26 Freq: Status: Active Protocol: Document 05/09/20 15:15 AW (Rec: 05/09/20 16:52 AW [email or web address]) Posture Evaluation Position Standing Evaluation View Lateral Head/C-Spine Posture Forward Head Hip Posture (L) Externally Rotated,(R) Externally Rotated Comments Posture Comments decreased lumbar lordosis PT-OP-K Range of Motion Start: 05/09/20 14:26 Freq: Status: Active Protocol: Document 05/09/20 15:15 AW (Rec: 05/09/20 17:17 AW [email or web address]) Lumbar Spine Range of Motion Lumbar Spine Active Degrees Testing Position Standing Flexion 56 Extension 20 ROM Limitations Pain Comments Fingertips 4 from knee joint line bilaterally with lateral flexion. Rotation WNL. Both lateral flexion and rotation are painful. Hip Goniometric Range of Motion Hip ROM Limitations Comments Hip flexion limited in supine due to habitus/soft tissue. IR limited bilaterally. Extension ~10 degrees B. Knee Goniometric Range of Motion Knee ROM Limitations Comments Knee ROM WNL and without pain PT-OP-L Special Tests Start: 05/09/20 14:26 Freq: Status: Active Protocol: Document 05/09/20 15:15 AW (Rec: 05/09/20 17:17 AW [email or web address]) Special Tests Lumbar Spine Special Tests Manual Traction Test Results positive Comments relieving Slump Comments no shooting pain; posterior tightness even in least provocative position Hip Special Tests Scour Test Test Results negative bilaterally PT-OP-M Strength Start: 05/09/20 14:26 Freq: Status: Active Protocol: Document 05/09/20 15:15 AW (Rec: 05/09/20 17:17 AW [email or web address]) Hip Strength Hip Manual Muscle Testing Right Flexion (L2) 4+ Good+ Extension (S1) 3+ Fair+ Abduction 4 Good External Rotation 4+ Good+ Internal Rotation 4 Good Left Flexion (L2) 4+ Good+ Extension (S1) 3+ Fair+ Abduction 4 Good External Rotation 4+ Good+ Internal Rotation 4 Good PT-OP-Q Treatments Start: 05/09/20 14:26 Freq: Status: Active Protocol: Document 06/01/20 09:49 MA (Rec: 06/01/20 10:31 MA [id number]) Therapeutic Exercises Supine Exercises Supine March Side bilateral Reps/Minutes 10 Comments focus on TrA activation LTR Supine Exercise Name Lower Trunk Rotation Side bilateral Reps/Minutes x8 Comments cued for core facilitation Pelvic Tilts Reps/Minutes 8x5 sec hold Prone Exercises child's pose Prone Exercise Name child's pose Reps/Minutes 60 sec Comments modified with hands on counter Sidelying Exercises Open Book Side bilateral Reps/Minutes 10x 5 sec hold Standing Exercises Calf Stretch Standing Exercise Name ` Side bilateral Equipment Used MACIEL Reps/Minutes 60 seconds x2 HS Stretch Standing Exercise Name Leg up on chair Reps/Minutes 60 sec x2 Comments Cues for not rotating pelvis Other Exercises Modified Plank Other Exercise Name forearm plank on elevated surface Reps/Minutes 2x30 seconds Therapeutic Activity Therapeutic Activity Lifting Comments Reviewing proper lifting techniques Neuro Re-Education Treatment Balance Activities Tandem Stance Surface Blue foam Reps/Duration 60 sec Hurdles Equipment 6 hurdles Reps/Duration 4x Comments fwd & lateral stepping PT-OP-T Assessment and Plan Start: 05/09/20 14:26 Freq: Status: Active Protocol: Document 06/01/20 09:49 MA (Rec: 06/01/20 10:31 MA [id number]) Physical Therapy Assessment Goals Three Impairment pain with initiation of gait Short Term Goal (STG) Pt will be able to sit 10 minutes and then stand to initiate gait without complaint of stiffness or increased pain. STG Duration 06/20/20 Correction Goal (LTG) Pt will walk 1/2 mile on uneven terrain without pain to improve his ability to participate in recreational activities such as golf or hiking with his . LTG Duration 08/06/20 Two Impairment medium risk for chronicity Short Term Goal (STG) Pt will score low risk on Ozzie STarT Back tool for reduction in risk of chronic pain STG Duration 06/06/20 One Impairment Pt lacks appropriate exercise program Short Term Goal (STG) Pt will be independent with [facility] for support of therapy services provided in clinic. 05/25/20 STG Duration Achieved Assessment Summary Assessment Pt has increased gastroc/HS tightness today bilaterally, likely due to hiking multiple times this week. He needs verbal and manual cues to not rotate pelvis during HS stretch due to tightness. Reminded pt he needs to be stretching before and after his hikes. Pt did well with hurdles stepping fwd and laterally without LOB. Physical Therapy Plan Frequency and Duration Frequency of Treatment 2x/Week Duration of Treatment 3 months Plan of Care Start Date 05/09/20 Plan of Care End Date 08/06/20 Therapeutic Interventions Therapeutic Interventions Balance Training,Gait Training ,Home Exercise Program,Joint Mobilizations,Manual Therapy, Neuromuscular Re-education, Patient/Caregiver Education, Self-Care/Home Management,Soft Tissue Mobilization,Taping, Therapeutic Activities, Therapeutic Exercises Modalities Cold Pack/Ice Massage,Electric Stimulation,Hot Packs Next Visit Focus/Plan Next Note Type Treatment Note Next Visit Plan Assess short term goals; Continue progressing core exercises, work on balance stimulating uneven terrain for returning to golf/hiking, continue HS stretches, open book, LTR
--- NOTE | 2020-06-06 16:13 | PT.OTN ---
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 He is able to go for a walk, but tends to tighten up after a while and feels he has to limp until it releases. He also reports shooting pain on right lateral thigh and to the calf. Pt believes his greatest barrier is having been much more sedentary than usual over the past year due to chemotherapy and COVID restrictions. Pt was diagnosed with stage 4 lung cancer in April 2019. He is followed by oncology at [facility] and underwent chemotherapy. He was started on a maintenance dose of Keytruda following chemo but he became ill and now suffers adrenal insufficiency. He was treated with prednisone taper which he has now finished. Pt also reports he was feeling woozy and recently changed BP meds with good result. Prior Treatments and Tests weekly chiropractic treatment Future Testing and Treatments Planned CT CAP 05/17/20 to follow up with oncology Treatment Goals Patient/Caregiver Goals Pt wants to feel better so he can work in his shop, play golf, and walk in the chu with . Prior Functional Status Baseline Function- ADL's Independent Baseline Function- Mobility Independent Baseline Function- Gait No AD Baseline Function- Work/School Pt is retired Baseline Function- Recreation/Hobbies Pt is able to work in his wood shop making custom furniture and cabinets. He enjoys playing golf. He was able to enjoy walks in the [place]u with his . Current Functional Impairments (Reported) Functional Limitations- ADL's Difficulty and pain with dressing tasks Functional Limitations- Mobility/Gait Unable to walk as far as he would like Functional Limitations- Recreation/ Pain with woodworking, unable Hobbies to play golf, does not tolerate walks on uneven terrain. Personal Factors Other Personal Factors That May Effect Pt's Ozzie Start Back score Therapy/Recovery indicates medium risk of poor outcomes or chronicity. PT-OP-C Subjective Start: 05/09/20 14:26 Freq: Status: Active Protocol: Document 06/06/20 16:00 AW (Rec: 06/06/20 16:07 AW [id number]) OP-PT Subjective Patient Comments Patient Comments I rode my e-bike 14 miles two days ago with no pain afterward. I'd like to reduce my visits to once weekly. PT-OP-D Balance Start: 05/09/20 14:26 Freq: Status: Active Protocol: Document 05/09/20 15:15 AW (Rec: 05/09/20 16:52 AW [email or web address]) OP-PT Balance Assessment Sitting Balance Static Sitting Balance Ability Normal Dynamic Sitting Balance Ability Good Standing Balance Static Standing Balance Ability Good Dynamic Standing Balance Ability Good Device Used no AD Balance Tests Single Limb Standing Single Limb- Right 5 seconds Single Limb- Left 15 seconds Arechiga Fall Scale Copyright Permission PT-OP-F Manual Assessment Start: 05/09/20 14:26 Freq: Status: Active Protocol: Document 05/09/20 15:15 AW (Rec: 05/09/20 16:52 AW [email or web address]) Manual Assessments Soft Tissue Assessment Soft Tissue Mobility Assessment Increased density of lumbar paraspinals in L4-S1 region as well as bilateral QL. Joint Mobility Assessment Joint Mobility Assessment Decreased PA glide L4-S1 PT-OP-G Mobility & Gait Start: 05/09/20 14:26 Freq: Status: Active Protocol: Document 05/09/20 15:15 AW (Rec: 05/09/20 16:52 AW [email or web address]) OP Mobility Evaluation Bed Mobility Rolling IND Supine to and from Sit IND Transfers Sit to Stand requires upper extremity push off on thighs on 2/3 attempts OP Gait Assessment Gait Gait Assistance Required: Independent Distance (Feet) 100 Assistive Devices Assistive Device None Orthotic/Prosthetic Devices or Brace: No Gait Deviations General Gait Pattern Antalgic,Decreased Stride Length,Decreased Feet Clearance,Flexed Trunk,Lateral Trunk Lean,Wide Based Gait Factors Limiting Gait Function Factors Limiting Gait Function Decreased Sensation,Decreased Strength,Limited Range of Motion,Pain Comments Gait Comments Pt ambulates with wide JOSEFINA and externally rotated hips. Slow to initiate due to stiffness but quality improves with distance. PT-OP-J Posture/Palpation/Skin Start: 05/09/20 14:26 Freq: Status: Active Protocol: Document 05/09/20 15:15 AW (Rec: 05/09/20 16:52 AW [email or web address]) Posture Evaluation Position Standing Evaluation View Lateral Head/C-Spine Posture Forward Head Hip Posture (L) Externally Rotated,(R) Externally Rotated Comments Posture Comments decreased lumbar lordosis PT-OP-K Range of Motion Start: 05/09/20 14:26 Freq: Status: Active Protocol: Document 05/09/20 15:15 AW (Rec: 05/09/20 17:17 AW [email or web address]) Lumbar Spine Range of Motion Lumbar Spine Active Degrees Testing Position Standing Flexion 56 Extension 20 ROM Limitations Pain Comments Fingertips 4 from knee joint line bilaterally with lateral flexion. Rotation WNL. Both lateral flexion and rotation are painful. Hip Goniometric Range of Motion Hip ROM Limitations Comments Hip flexion limited in supine due to habitus/soft tissue. IR limited bilaterally. Extension ~10 degrees B. Knee Goniometric Range of Motion Knee ROM Limitations Comments Knee ROM WNL and without pain PT-OP-L Special Tests Start: 05/09/20 14:26 Freq: Status: Active Protocol: Document 05/09/20 15:15 AW (Rec: 05/09/20 17:17 AW [email or web address]) Special Tests Lumbar Spine Special Tests Manual Traction Test Results positive Comments relieving Slump Comments no shooting pain; posterior tightness even in least provocative position Hip Special Tests Scour Test Test Results negative bilaterally PT-OP-M Strength Start: 05/09/20 14:26 Freq: Status: Active Protocol: Document 05/09/20 15:15 AW (Rec: 05/09/20 17:17 AW [email or web address]) Hip Strength Hip Manual Muscle Testing Right Flexion (L2) 4+ Good+ Extension (S1) 3+ Fair+ Abduction 4 Good External Rotation 4+ Good+ Internal Rotation 4 Good Left Flexion (L2) 4+ Good+ Extension (S1) 3+ Fair+ Abduction 4 Good External Rotation 4+ Good+ Internal Rotation 4 Good PT-OP-Q Treatments Start: 05/09/20 14:26 Freq: Status: Active Protocol: Document 06/06/20 16:00 AW (Rec: 06/06/20 16:07 AW [id number]) Therapeutic Exercises Supine Exercises hip flexor stretch Supine Exercise Name hip flexor stretch Side bilateral Resistance manual Comments luz maria test position bridge Supine Exercise Name bridge Equipment Used blue ball for adduction Reps/Minutes 10 x 2 LTR Supine Exercise Name Lower Trunk Rotation Side bilateral Reps/Minutes x8 Comments cued for core facilitation Prone Exercises child's pose Prone Exercise Name child's pose Reps/Minutes 60 sec Comments modified with hands on counter ; cued lat stretch, hips pushed back Sidelying Exercises clamshell Sidelying Exercise Name clamshell Side bilateral Reps/Minutes 10 x 2 Comments cued stacked hips Open Book Side bilateral Reps/Minutes 10x 5 sec hold Sitting Exercises seated flexion stretch Sitting Exercise Name seated flexion stretch Reps/Minutes 30 sec x 2 Comments forward and with hands walked to each side Standing Exercises Calf Stretch Standing Exercise Name ` Side bilateral Equipment Used MACIEL Reps/Minutes 60 seconds x2 HS Stretch Standing Exercise Name Leg up on chair Reps/Minutes 60 sec x2 Comments Cues for not rotating pelvis Self-Care/Home Management Treatment Education Patient Education Home Exercise Program Other Education Added bridge and clamshell for home PT-OP-T Assessment and Plan Start: 05/09/20 14:26 Freq: Status: Active Protocol: Document 06/06/20 16:00 AW (Rec: 06/06/20 16:13 AW [id number]) Physical Therapy Assessment Goals Three Impairment pain with initiation of gait Short Term Goal (STG) Pt will be able to sit 10 minutes and then stand to initiate gait without complaint of stiffness or increased pain. STG Duration 06/20/20 Die Try Out Worker Stamping Goal (LTG) Pt will walk 1/2 mile on uneven terrain without pain to improve his ability to participate in recreational activities such as golf or hiking with his . LTG Duration 08/06/20 Two Impairment medium risk for chronicity Short Term Goal (STG) Pt will score low risk on Ozzie STarT Back tool for reduction in risk of chronic pain STG Duration 06/06/20 One Impairment Pt lacks appropriate exercise program Short Term Goal (STG) Pt will be independent with [facility] for support of therapy services provided in clinic. 05/25/20 STG Duration Achieved Assessment Summary Assessment Pt has been able to participate in much more activity lately without significant increase in pain. He has been compliant with HEP though still requires cues for form. Pt would like to reduce visits to weekly. Physical Therapy Plan Frequency and Duration Frequency of Treatment 2x/Week Duration of Treatment 3 months Plan of Care Start Date 05/09/20 Plan of Care End Date 08/06/20 Therapeutic Interventions Therapeutic Interventions Balance Training,Gait Training ,Home Exercise Program,Joint Mobilizations,Manual Therapy, Neuromuscular Re-education, Patient/Caregiver Education, Self-Care/Home Management,Soft Tissue Mobilization,Taping, Therapeutic Activities, Therapeutic Exercises Modalities Cold Pack/Ice Massage,Electric Stimulation,Hot Packs Next Visit Focus/Plan Next Note Type Treatment Note Next Visit Plan Assess short term goals; Continue progressing core exercises, work on balance stimulating uneven terrain for returning to golf/hiking, continue HS stretches, open book, LTR
--- NOTE | 2020-06-13 16:27 | PT.OTN ---
Current Diagnoses Sciatica, right side (06/13/20) Dorsalgia, unspecified (06/13/20) Abnormal posture (06/13/20) Physical Therapy Treatment Note PT-OP-A Visit Information Start: 05/09/20 14:26 Freq: Status: Active Protocol: Document 06/13/20 16:19 AW (Rec: 06/13/20 16:27 AW [email or web address]) Out-Patient Physical Therapy Visit Information Visit Information Visit Type Treatment Note Visit Start Time 15:30 Visit Stop Time 16:15 Total Visit Minutes 45 Visit Number 8 Number of MAINTENANCE ENGINEER Visits 0 Evaluation Information Evaluation Date 05/09/20 PT-OP-B Current Condition Start: 05/09/20 14:26 Freq: Status: Active Protocol: Document 05/09/20 15:15 AW (Rec: 05/09/20 15:18 AW [id number]) Current Condition History of Current Condition Onset Date one month Current Complaints low back pain and bilateral leg pain History of Current Condition Pt complains of low back and bilateral leg pain with burning numbness in both lateral thighs but worse on the right. He is able to go for a walk, but tends to tighten up after a while and feels he has to limp until it releases. He also reports shooting pain on right lateral thigh and to the calf. Pt believes his greatest barrier is having been much more sedentary than usual over the past year due to chemotherapy and COVID restrictions. Pt was diagnosed with stage 4 lung cancer in April 2019. He is followed by oncology at [facility] and underwent chemotherapy. He was started on a maintenance dose of Keytruda following chemo but he became ill and now suffers adrenal insufficiency. He was treated with prednisone taper which he has now finished. Pt also reports he was feeling woozy and recently changed BP meds with good result. Prior Treatments and Tests weekly chiropractic treatment Future Testing and Treatments Planned CT CAP 05/17/20 to follow up with oncology Treatment Goals Patient/Caregiver Goals Pt wants to feel better so he can work in his shop, play golf, and walk in the chu with . Prior Functional Status Baseline Function- ADL's Independent Baseline Function- Mobility Independent Baseline Function- Gait No AD Baseline Function- Work/School Pt is retired Baseline Function- Recreation/Hobbies Pt is able to work in his wood shop making custom furniture and cabinets. He enjoys playing golf. He was able to enjoy walks in the chu with his . Current Functional Impairments (Reported) Functional Limitations- ADL's Difficulty and pain with dressing tasks Functional Limitations- Mobility/Gait Unable to walk as far as he would like Functional Limitations- Recreation/ Pain with woodworking, unable Hobbies to play golf, does not tolerate walks on uneven terrain. Personal Factors Other Personal Factors That May Effect Pt's Ozzie Start Back score Therapy/Recovery indicates medium risk of poor outcomes or chronicity. PT-OP-C Subjective Start: 05/09/20 14:26 Freq: Status: Active Protocol: Document 06/13/20 16:19 AW (Rec: 06/13/20 16:27 AW [email or web address]) OP-PT Subjective Patient Comments Patient Comments I went for a 19 mile bike ride because I forgot I had PT today. I'm pretty stiff and sore. PT-OP-D Balance Start: 05/09/20 14:26 Freq: Status: Active Protocol: Document 05/09/20 15:15 AW (Rec: 05/09/20 16:52 AW [email or web address]) OP-PT Balance Assessment Sitting Balance Static Sitting Balance Ability Normal Dynamic Sitting Balance Ability Good Standing Balance Static Standing Balance Ability Good Dynamic Standing Balance Ability Good Device Used no AD Balance Tests Single Limb Standing Single Limb- Right 5 seconds Single Limb- Left 15 seconds Arechiga Fall Scale Copyright Permission PT-OP-F Manual Assessment Start: 05/09/20 14:26 Freq: Status: Active Protocol: Document 05/09/20 15:15 AW (Rec: 05/09/20 16:52 AW [email or web address]) Manual Assessments Soft Tissue Assessment Soft Tissue Mobility Assessment Increased density of lumbar paraspinals in L4-S1 region as well as bilateral QL. Joint Mobility Assessment Joint Mobility Assessment Decreased PA glide L4-S1 PT-OP-G Mobility & Gait Start: 05/09/20 14:26 Freq: Status: Active Protocol: Document 05/09/20 15:15 AW (Rec: 05/09/20 16:52 AW [email or web address]) OP Mobility Evaluation Bed Mobility Rolling IND Supine to and from Sit IND Transfers Sit to Stand requires upper extremity push off on thighs on 2/3 attempts OP Gait Assessment Gait Gait Assistance Required: Independent Distance (Feet) 100 Assistive Devices Assistive Device None Orthotic/Prosthetic Devices or Brace: No Gait Deviations General Gait Pattern Antalgic,Decreased Stride Length,Decreased Feet Clearance,Flexed Trunk,Lateral Trunk Lean,Wide Based Gait Factors Limiting Gait Function Factors Limiting Gait Function Decreased Sensation,Decreased Strength,Limited Range of Motion,Pain Comments Gait Comments Pt ambulates with wide JOSEFINA and externally rotated hips. Slow to initiate due to stiffness but quality improves with distance. PT-OP-J Posture/Palpation/Skin Start: 05/09/20 14:26 Freq: Status: Active Protocol: Document 05/09/20 15:15 AW (Rec: 05/09/20 16:52 AW [email or web address]) Posture Evaluation Position Standing Evaluation View Lateral Head/C-Spine Posture Forward Head Hip Posture (L) Externally Rotated,(R) Externally Rotated Comments Posture Comments decreased lumbar lordosis PT-OP-K Range of Motion Start: 05/09/20 14:26 Freq: Status: Active Protocol: Document 05/09/20 15:15 AW (Rec: 05/09/20 17:17 AW [email or web address]) Lumbar Spine Range of Motion Lumbar Spine Active Degrees Testing Position Standing Flexion 56 Extension 20 ROM Limitations Pain Comments Fingertips 4 from knee joint line bilaterally with lateral flexion. Rotation WNL. Both lateral flexion and rotation are painful. Hip Goniometric Range of Motion Hip ROM Limitations Comments Hip flexion limited in supine due to habitus/soft tissue. IR limited bilaterally. Extension ~10 degrees B. Knee Goniometric Range of Motion Knee ROM Limitations Comments Knee ROM WNL and without pain PT-OP-L Special Tests Start: 05/09/20 14:26 Freq: Status: Active Protocol: Document 05/09/20 15:15 AW (Rec: 05/09/20 17:17 AW [email or web address]) Special Tests Lumbar Spine Special Tests Manual Traction Test Results positive Comments relieving Slump Comments no shooting pain; posterior tightness even in least provocative position Hip Special Tests Scour Test Test Results negative bilaterally PT-OP-M Strength Start: 05/09/20 14:26 Freq: Status: Active Protocol: Document 05/09/20 15:15 AW (Rec: 05/09/20 17:17 AW [email or web address]) Hip Strength Hip Manual Muscle Testing Right Flexion (L2) 4+ Good+ Extension (S1) 3+ Fair+ Abduction 4 Good External Rotation 4+ Good+ Internal Rotation 4 Good Left Flexion (L2) 4+ Good+ Extension (S1) 3+ Fair+ Abduction 4 Good External Rotation 4+ Good+ Internal Rotation 4 Good PT-OP-Q Treatments Start: 05/09/20 14:26 Freq: Status: Active Protocol: Document 06/13/20 16:15 AW (Rec: 06/13/20 16:18 AW [id number]) Cardio Equipment Recumbent Elliptical (Biodex) Duration (Minutes) 6 Resistance 3 Seat Position 12 Therapeutic Exercises Supine Exercises hip flexor stretch Supine Exercise Name hip flexor stretch Side bilateral Resistance manual Comments luz maria test position bridge Supine Exercise Name bridge Equipment Used blue ball for adduction Reps/Minutes 10 x 2 LTR Supine Exercise Name Lower Trunk Rotation Side bilateral Reps/Minutes x8 Comments with legs on ball Prone Exercises child's pose Prone Exercise Name child's pose, cat cow, lateral flexion Comments modified with hands on counter ; cued lat stretch, hips pushed back Sidelying Exercises clamshell Sidelying Exercise Name clamshell Side bilateral Reps/Minutes 10 x 2 Comments cued stacked hips Open Book Side bilateral Reps/Minutes 10x 5 sec hold Standing Exercises paloff press Standing Exercise Name paloff press Side bilateral Resistance level 1 Equipment Used TB Reps/Minutes 10 x 2 Comments cued stacked posture Other Exercises Modified Plank Other Exercise Name forearm plank on elevated surface Reps/Minutes 2x30 seconds PT-OP-T Assessment and Plan Start: 05/09/20 14:26 Freq: Status: Active Protocol: Document 06/13/20 16:19 AW (Rec: 06/13/20 16:27 AW [email or web address]) Physical Therapy Assessment Goals Three Impairment pain with initiation of gait Short Term Goal (STG) Pt will be able to sit 10 minutes and then stand to initiate gait without complaint of stiffness or increased pain. STG Duration 06/20/20 Counseling Services Director Goal (LTG) Pt will walk 1/2 mile on uneven terrain without pain to improve his ability to participate in recreational activities such as golf or hiking with his . LTG Duration 08/06/20 Two Impairment medium risk for chronicity Short Term Goal (STG) Pt will score low risk on Ozzie STarT Back tool for reduction in risk of chronic pain STG Duration 06/06/20 One Impairment Pt lacks appropriate exercise program Short Term Goal (STG) Pt will be independent with [facility] for support of therapy services provided in clinic. 05/25/20 STG Duration Achieved Assessment Summary Assessment Pt continues to need verbal and tactile cues for trunk stabilization during all activities. He is travelling to [place] next week and will return to therapy when he gets back. Physical Therapy Plan Frequency and Duration Frequency of Treatment 2x/Week Duration of Treatment 3 months Plan of Care Start Date 05/09/20 Plan of Care End Date 08/06/20 Therapeutic Interventions Therapeutic Interventions Balance Training,Gait Training ,Home Exercise Program,Joint Mobilizations,Manual Therapy, Neuromuscular Re-education, Patient/Caregiver Education, Self-Care/Home Management,Soft Tissue Mobilization,Taping, Therapeutic Activities, Therapeutic Exercises Modalities Cold Pack/Ice Massage,Electric Stimulation,Hot Packs Next Visit Focus/Plan Next Note Type Treatment Note Next Visit Plan Assess short term goals; Continue progressing core exercises, work on balance stimulating uneven terrain for returning to golf/hiking, continue HS stretches, open book, LTR
--- NOTE | 2020-07-04 10:07 | PT-OP ANOTE ---
Pt did not show for 0945 appointment. Called pt who states he cancelled via televox yesterday. He is planning to keep his next scheduled appointment on 07/11 at 0945.
--- NOTE | 2020-07-11 15:49 | PT.OTN ---
Current Diagnoses Sciatica, right side (07/11/20) Dorsalgia, unspecified (07/11/20) Abnormal posture (07/11/20) Physical Therapy Treatment Note PT-OP-A Visit Information Start: 05/09/20 14:26 Freq: Status: Active Protocol: Document 07/11/20 10:30 AW (Rec: 07/11/20 10:36 AW [id number]) Out-Patient Physical Therapy Visit Information Visit Information Visit Type Treatment Note Visit Start Time 09:47 Visit Stop Time 10:30 Total Visit Minutes 43 Visit Number 9 Number of LNA Visits 0 Evaluation Information Evaluation Date 05/09/20 PT-OP-B Current Condition Start: 05/09/20 14:26 Freq: Status: Active Protocol: Document 05/09/20 15:15 AW (Rec: 05/09/20 15:18 AW [id number]) Current Condition History of Current Condition Onset Date one month Current Complaints low back pain and bilateral leg pain History of Current Condition Pt complains of low back and bilateral leg pain with burning numbness in both lateral thighs but worse on the right. He is able to go for a walk, but tends to tighten up after a while and feels he has to limp until it releases. He also reports shooting pain on right lateral thigh and to the calf. Pt believes his greatest barrier is having been much more sedentary than usual over the past year due to chemotherapy and COVID restrictions. Pt was diagnosed with stage 4 lung cancer in April 2019. He is followed by oncology at [facility] and underwent chemotherapy. He was started on a maintenance dose of Keytruda following chemo but he became ill and now suffers adrenal insufficiency. He was treated with prednisone taper which he has now finished. Pt also reports he was feeling woozy and recently changed BP meds with good result. Prior Treatments and Tests weekly chiropractic treatment Future Testing and Treatments Planned CT CAP 05/17/20 to follow up with oncology Treatment Goals Patient/Caregiver Goals Pt wants to feel better so he can work in his shop, play golf, and walk in the chu with . Prior Functional Status Baseline Function- ADL's Independent Baseline Function- Mobility Independent Baseline Function- Gait No AD Baseline Function- Work/School Pt is retired Baseline Function- Recreation/Hobbies Pt is able to work in his wood shop making custom furniture and cabinets. He enjoys playing golf. He was able to enjoy walks in the chu with his . Current Functional Impairments (Reported) Functional Limitations- ADL's Difficulty and pain with dressing tasks Functional Limitations- Mobility/Gait Unable to walk as far as he would like Functional Limitations- Recreation/ Pain with woodworking, unable Hobbies to play golf, does not tolerate walks on uneven terrain. Personal Factors Other Personal Factors That May Effect Pt's Ozzie Start Back score Therapy/Recovery indicates medium risk of poor outcomes or chronicity. PT-OP-C Subjective Start: 05/09/20 14:26 Freq: Status: Active Protocol: Document 07/11/20 10:30 AW (Rec: 07/11/20 10:36 AW [id number]) OP-PT Subjective Patient Comments Patient Comments Pt is still going to chemo every three weeks. I just don 't know how much more time I want to spend here. Maybe I'm ready to discharge. PT-OP-D Balance Start: 05/09/20 14:26 Freq: Status: Active Protocol: Document 05/09/20 15:15 AW (Rec: 05/09/20 16:52 AW [email or web address]) OP-PT Balance Assessment Sitting Balance Static Sitting Balance Ability Normal Dynamic Sitting Balance Ability Good Standing Balance Static Standing Balance Ability Good Dynamic Standing Balance Ability Good Device Used no AD Balance Tests Single Limb Standing Single Limb- Right 5 seconds Single Limb- Left 15 seconds Arechiga Fall Scale Copyright Permission PT-OP-F Manual Assessment Start: 05/09/20 14:26 Freq: Status: Active Protocol: Document 05/09/20 15:15 AW (Rec: 05/09/20 16:52 AW [email or web address]) Manual Assessments Soft Tissue Assessment Soft Tissue Mobility Assessment Increased density of lumbar paraspinals in L4-S1 region as well as bilateral QL. Joint Mobility Assessment Joint Mobility Assessment Decreased PA glide L4-S1 PT-OP-G Mobility & Gait Start: 05/09/20 14:26 Freq: Status: Active Protocol: Document 05/09/20 15:15 AW (Rec: 05/09/20 16:52 AW [email or web address]) OP Mobility Evaluation Bed Mobility Rolling IND Supine to and from Sit IND Transfers Sit to Stand requires upper extremity push off on thighs on 2/3 attempts OP Gait Assessment Gait Gait Assistance Required: Independent Distance (Feet) 100 Assistive Devices Assistive Device None Orthotic/Prosthetic Devices or Brace: No Gait Deviations General Gait Pattern Antalgic,Decreased Stride Length,Decreased Feet Clearance,Flexed Trunk,Lateral Trunk Lean,Wide Based Gait Factors Limiting Gait Function Factors Limiting Gait Function Decreased Sensation,Decreased Strength,Limited Range of Motion,Pain Comments Gait Comments Pt ambulates with wide JOSEFINA and externally rotated hips. Slow to initiate due to stiffness but quality improves with distance. PT-OP-J Posture/Palpation/Skin Start: 05/09/20 14:26 Freq: Status: Active Protocol: Document 05/09/20 15:15 AW (Rec: 05/09/20 16:52 AW [email or web address]) Posture Evaluation Position Standing Evaluation View Lateral Head/C-Spine Posture Forward Head Hip Posture (L) Externally Rotated,(R) Externally Rotated Comments Posture Comments decreased lumbar lordosis PT-OP-K Range of Motion Start: 05/09/20 14:26 Freq: Status: Active Protocol: Document 05/09/20 15:15 AW (Rec: 05/09/20 17:17 AW [email or web address]) Lumbar Spine Range of Motion Lumbar Spine Active Degrees Testing Position Standing Flexion 56 Extension 20 ROM Limitations Pain Comments Fingertips 4 from knee joint line bilaterally with lateral flexion. Rotation WNL. Both lateral flexion and rotation are painful. Hip Goniometric Range of Motion Hip ROM Limitations Comments Hip flexion limited in supine due to habitus/soft tissue. IR limited bilaterally. Extension ~10 degrees B. Knee Goniometric Range of Motion Knee ROM Limitations Comments Knee ROM WNL and without pain PT-OP-L Special Tests Start: 05/09/20 14:26 Freq: Status: Active Protocol: Document 05/09/20 15:15 AW (Rec: 05/09/20 17:17 AW [email or web address]) Special Tests Lumbar Spine Special Tests Manual Traction Test Results positive Comments relieving Slump Comments no shooting pain; posterior tightness even in least provocative position Hip Special Tests Scour Test Test Results negative bilaterally PT-OP-M Strength Start: 05/09/20 14:26 Freq: Status: Active Protocol: Document 05/09/20 15:15 AW (Rec: 05/09/20 17:17 AW [email or web address]) Hip Strength Hip Manual Muscle Testing Right Flexion (L2) 4+ Good+ Extension (S1) 3+ Fair+ Abduction 4 Good External Rotation 4+ Good+ Internal Rotation 4 Good Left Flexion (L2) 4+ Good+ Extension (S1) 3+ Fair+ Abduction 4 Good External Rotation 4+ Good+ Internal Rotation 4 Good PT-OP-Q Treatments Start: 05/09/20 14:26 Freq: Status: Active Protocol: Document 07/11/20 10:30 AW (Rec: 07/11/20 10:36 AW [id number]) Cardio Equipment Recumbent Elliptical (BiodeÇift) Duration (Minutes) 6 Resistance 3 Seat Position 12 Therapeutic Exercises Supine Exercises piriformis stretch Supine Exercise Name piriformis stretch Side bilateral Resistance self, manual Reps/Minutes 30 SH x 4 sciatic glide Supine Exercise Name sciatic glide Comments HS stretch + active DF/PF SKTC Supine Exercise Name SKTC Comments focus posterior stretch posture press Supine Exercise Name posture press Side bilateral Reps/Minutes 5SH x15 Comments cued scap retraction active SLR Supine Exercise Name active SLR Side bilateral Reps/Minutes 10 x 2 Comments cued PPT bridge Supine Exercise Name bridge Equipment Used blue ball for adduction Reps/Minutes 10 x 2 LTR Supine Exercise Name Lower Trunk Rotation Side bilateral Reps/Minutes x8 Comments cued core engagement Prone Exercises child's pose Prone Exercise Name child's pose, cat cow, lateral flexion Comments modified with hands on counter ; cued lat stretch, hips pushed back Standing Exercises paloff press Standing Exercise Name paloff press Side bilateral Resistance level 1 Equipment Used TB Reps/Minutes 10 x 2 Comments progressed to SLS Calf Stretch Standing Exercise Name ` Side bilateral Equipment Used MACIEL Reps/Minutes 60 seconds x2 HS Stretch Standing Exercise Name Leg up on chair Reps/Minutes 60 sec x2 Comments Cues for not rotating pelvis PT-OP-T Assessment and Plan Start: 05/09/20 14:26 Freq: Status: Active Protocol: Document 07/11/20 10:30 AW (Rec: 07/11/20 15:49 AW [email or web address]) Physical Therapy Assessment Goals Three Impairment pain with initiation of gait Short Term Goal (STG) Pt will be able to sit 10 minutes and then stand to initiate gait without complaint of stiffness or increased pain. 07/11/20 ACHIEVED STG Duration 06/20/20 [facility] Goal (LTG) Pt will walk 1/2 mile on uneven terrain without pain to improve his ability to participate in recreational activities such as golf or hiking with his . 07/11/20 PROGRESSING LTG Duration 08/06/20 Progress Towards Goals Progress Towards Goals Progressing Toward Goals Assessment Summary Assessment Pt shows improvement in uncued stabilization during all activities today. Original goals included pt being generally more active; he has met this goal and wishes to discharge. Physical Therapy Plan Discharge Physical Therapy Discharge Reasons Patient Request Discharge Comments Pt states he had hoped to resume regular activity after a year of being more sedentary . Although pt continues to require cues for core stabilization, he feels he has met his goals and wishes to discharge. Pt understands he would need another referral if he wanted to return to therapy.
== END 2020-07-20 10:06 | disposition home or self-care (01) ==
LOC: PHYS 09:45
PROVIDERS: PCP Internal Medicine; Referring Provider Internal Medicine; Visit Provider Internal Medicine
DX: M54.31 Sciatica, right side (principal); M54.9 Dorsalgia, unspecified; R29.3 Abnormal posture
CPT/HCPCS: 97110; 97112; 97140; 97162; 97530

== ENCOUNTER → 2020-10-08 06:52 | Outpatient (CLI) | payer MEDICARE, OTHER, SELFPAY ==
[2020-09-03 14:45] VITALS: BMI 33.2
--- NOTE | 2020-10-08 06:53 | DI.CT.S_ITS ---
PROCEDURE: CT CHEST ABD PEL W CON INDICATIONS: lung cancer, right and right upper quadrant pain, TECHNIQUE: After the administration of oral and intravenous contrast, axial sections acquired from the supraclavicular neck to the pubic symphysis. Coronal and sagittal reformats were performed. For radiation dose reduction, the following was used: automated exposure control, adjustment of mA and/or kV according to patient size. COMPARISON: [facility], CT, CT CHEST ABD PEL W CON, 03/06/2019, 9:49. [facility], CT, CT ABDOMEN PELVIS W CON, 11/15/2019, 14:59. [facility], CT, CT ANGIO CHEST PE PROTOCOL, 10/19/2019, 3:13. [facility], CT, CT CHEST ABDOMEN W CON, 09/30/2019, 9:42. [facility], CT, CT CHEST ABDOMEN W CON, 08/15/2019, 14:36. [facility], CT, CT CHEST ABD PEL W CON, 05/17/2020, 11:20. FINDINGS: Image quality: Excellent. CHEST: Lower Neck: No enlarged lymph nodes. Thyroid: Within normal limits. Axillae: No enlarged lymph nodes. Chest Wall: Unremarkable. Lungs and Airways: There are scars, consolidation and/or atelectasis in right middle lobe and right lower lobe, minimally increased. Pleura: Pleural thickening and pleural nodules are nodularity in right hemithorax, minimally changed. Small loculated right pleural effusion, unchanged. Heart: Heart size is normal. No pericardial effusion. Thoracic Vessels: The aorta and pulmonary arteries demonstrate normal size. Mediastinum and Anamika: No enlarged lymph nodes. Small right paratracheal lymph nodes are present measuring up to 0.6 cm in short axis. Esophagus: Mild concentric wall thickening. Small hiatal hernia. ABDOMEN: Liver: Hepatic steatosis. There is a 0.8 cm indeterminate low-density nodule in the left hepatic lobe, unchanged. Gallbladder: Unremarkable. Biliary ducts: Unremarkable. Pancreas: Unremarkable. Spleen: Unremarkable. Adrenal Glands: There is a 1.1 x 1.4 cm nodule in the medial limb of the left adrenal gland, unchanged. Kidneys and Ureters: Unremarkable. Stomach and Bowel: Stomach, small bowel loops, and colon are normal in caliber. Moderate amount of stool in colon. There are scattered colonic diverticula. No active diverticulitis. Peritoneum: No abnormal intraperitoneal fluid. No free air. Ventral Wall: No hernia. Abdominal Nodes: No retroperitoneal or mesenteric adenopathy by size criteria. Vessels: Aorta and inferior vena cava are normal in size. PELVIS: Pelvic Organs: Prostate is enlarged. Bladder: Unremarkable. Pelvic Nodes: No enlarged lymph nodes. Miscellaneous: No inguinal hernias are seen. Bones: Small sclerotic foci in the right iliac bone and left acetabulum are unchanged, probably bone islands. Degenerative changes in lumbar spine. IMPRESSION: 1. Pleural thickening and pleural nodules are nodularity are present in the right hemithorax, suspicious for pleural metastasis. There is minimal change when compared to the last exam. There is right basilar consolidation/atelectasis. Small right pleural effusion is present, unchanged. 2. No lymphadenopathy by size criteria in thorax, abdomen or pelvis. 3. Stable indeterminate 0.8 cm nodule in the left hepatic lobe, most likely a cyst. 4. Stable 1.1 x 1.4 cm left adrenal nodule. 5. Diverticulosis without diverticulitis. Dictated by: Jayda Marcial M.D. on 10/08/2020 at 7:39 Approved by: Jayda Marcial M.D. on 10/08/2020 at 11:20
== END ==
PROVIDERS: PCP Internal Medicine; Referring Provider Internal Medicine Hematology & Oncology; Visit Provider Internal Medicine Hematology & Oncology
DX: C34.91 Malignant neoplasm of unspecified part of right bronchus or lung (principal); J92.9 Pleural plaque without asbestos; J90 Pleural effusion, not elsewhere classified; R10.11 Right upper quadrant pain; E27.9 Disorder of adrenal gland, unspecified; K76.9 Liver disease, unspecified; K57.90 Diverticulosis of intestine, part unspecified, without perforation or abscess without bleeding
CPT/HCPCS: 71260; 74177; Q9967

== ENCOUNTER → 2021-02-27 12:24 | Outpatient (CLI) | payer MEDICARE, OTHER, SELFPAY ==
[2020-09-03 14:45] VITALS: BMI 33.2
--- NOTE | 2021-02-27 12:26 | DI.CT.S_ITS ---
PROCEDURE: CT CHEST ABD PEL W CON INDICATIONS: metastatic lung cancer TECHNIQUE: After the administration of oral and intravenous contrast, axial sections acquired from the supraclavicular neck to the pubic symphysis. Coronal and sagittal reformats were performed. For radiation dose reduction, the following was used: automated exposure control, adjustment of mA and/or kV according to patient size. COMPARISON:[facility], CT, CT CHEST ABD PEL W CON, 05/17/2020, 11:20. [facility], CT, CT CHEST ABD PEL W CON, 10/08/2020, 7:43. FINDINGS: Image quality: Excellent. CHEST: Lower Neck: No enlarged lymph nodes. Thyroid: Within normal limits. Axillae: No enlarged lymph nodes. Chest Wall: Unremarkable. Lungs and Airways: Volume loss in the right hemithorax with subpleural scars and atelectasis. Mild right basilar consolidation. No suspicious nodules. Pleura: Pleural thickening and nodularity in the right nayan thorax appears unchanged. Trace right pleural effusion. No pneumothorax. Heart: Heart size is normal. No pericardial effusion. Thoracic Vessels: The aorta and pulmonary arteries demonstrate normal size. Mediastinum and [place]: No enlarged lymph nodes. Esophagus: No wall thickening. Small hiatal hernia. ABDOMEN: Liver: Normal in size. Mild hepatic steatosis. There is a 0.8 cm hypodense nodule in the left hepatic lobe, unchanged. Gallbladder: Unremarkable. Biliary ducts: Unremarkable. Pancreas: Unremarkable. Spleen: Unremarkable. Adrenal Glands: Small left adrenal nodule appears unchanged in size. Kidneys and Ureters: Unremarkable. Stomach and Bowel: Stomach, small bowel loops, and colon are normal in caliber. Diverticulosis without diverticulitis Peritoneum: No abnormal intraperitoneal fluid. No free air. Ventral Wall: No hernia. Abdominal Nodes: No retroperitoneal or mesenteric adenopathy by size criteria. Vessels: Aorta and inferior vena cava are normal in size. PELVIS: Pelvic Organs: Unremarkable. Bladder: Unremarkable. Pelvic Nodes: No enlarged lymph nodes. Miscellaneous: No inguinal hernias are seen. Bones: Unremarkable. IMPRESSION: 1. No significant change. There is volume loss in the right hemithorax. Pleural thickening and nodularity in the right nayan thorax appears unchanged. There is mild right basilar consolidation and trace right pleural effusion, also unchanged. 2. No lymphadenopathy in thorax, abdomen or pelvis. 3. Stable small left adrenal nodule. 4. Stable 0.8 cm low-density nodule in the left hepatic lobe. Dictated by: Jayda Marcial M.D. on 02/27/2021 at 16:02 Approved by: Jayda Marcial M.D. on 02/27/2021 at 16:40
== END ==
PROVIDERS: PCP Internal Medicine; Referring Provider Internal Medicine Hematology & Oncology; Visit Provider Internal Medicine Hematology & Oncology
DX: C34.91 Malignant neoplasm of unspecified part of right bronchus or lung (principal); K76.0 Fatty (change of) liver, not elsewhere classified; E27.9 Disorder of adrenal gland, unspecified
CPT/HCPCS: 71260; 74177; Q9967

== ENCOUNTER → 2021-02-28 14:02 | Outpatient (CLI) | payer MEDICARE, OTHER, SELFPAY ==
[2020-09-03 14:45] VITALS: BMI 33.2
--- NOTE | 2021-02-28 14:03 | DI.MRI.S_ITS ---
PROCEDURE: MR HEAD/BRAIN WO/W CON INDICATIONS: metastatic lung cancer, dizziness TECHNIQUE: Noncontrast axial T1 spin echo, axial T2 fast spin echo, sagittal and axial FLAIR, coronal T2 fast spin echo, axial gradient echo, axial diffusion and ADC through the brain. After the administration of contrast, axial and coronal T1 spin echo with fat saturation through the brain. COMPARISON: [facility], MR, MR HEAD/BRAIN WO/W CON, 03/15/2020, 7:04. FINDINGS: Image quality: Excellent. CSF spaces: Basal cisterns are patent. No extra-axial fluid collections. Ventricles are normal in size and shape. Brain: No midline shift. No intracranial bleeds or masses. No abnormal intracranial enhancement. There is cerebral volume loss for age. There is minimal periventricular white matter chronic small vessel ischemic change. The brainstem appears normal. Diffusion-weighted images demonstrate no acute ischemic insults. No chronic ischemic insults. Normal intravascular flow voids are present. Skull and face: Calvarial marrow is normal in signal. Orbits appear normal. Sinuses: Sinuses and mastoids appear clear. IMPRESSION: Negative brain MRI for patient age. No evidence of metastatic disease. No acute stroke or hemorrhage. Dictated by: Patrick Gary M.D. on 02/28/2021 at 15:13 Approved by: Patrick Gary M.D. on 02/28/2021 at 15:13
== END ==
PROVIDERS: PCP Internal Medicine; Referring Provider Internal Medicine Hematology & Oncology; Visit Provider Internal Medicine Hematology & Oncology
DX: R42 Dizziness and giddiness (principal); C34.91 Malignant neoplasm of unspecified part of right bronchus or lung
CPT/HCPCS: 70553; A9579

== ENCOUNTER 2021-06-30 20:30 | Inpatient (IN) | payer MEDICARE, OTHER, SELFPAY ==
[2020-09-03 14:45] VITALS: BMI 33.2
[2021-06-30] VITALS (11 sets, daily range): BP systolic 110–151; BP diastolic 54–83; PULSE 120–130; RESP 24; TEMP 37.8–38.9; O2SAT 93–97; BMI 30.1
--- NOTE | 2021-06-30 20:40 | DI.RAD.S_ITS ---
PROCEDURE: XR CHEST 1V INDICATIONS: suspected sepsis TECHNIQUE: One view of the chest was acquired. COMPARISON: [facility], CT, CT CHEST ABD PEL W CON, 02/27/2021, 13:42. [facility], CR, XR CHEST 1V, 11/15/2019, 13:40. [facility], CR, XR CHEST 1V, 10/19/2019, 2:29. FINDINGS: Surgical changes and devices: Right-sided port with the catheter tip at the lower 3rd of the SVC. Lungs and pleura: Low lung volumes. Increased interstitial markings. No pleural effusions or pneumothorax. Mediastinum: Mediastinal contours appear normal. Heart size is normal. Bones and chest wall: No suspicious bony lesions. Overlying soft tissues appear unremarkable. IMPRESSION: Low lung volumes. Prominent nonspecific interstitial markings is again seen. This could be due to a pleural thickening as was seen on prior CT, atelectasis/scarring, infectious/inflammatory etiology, or edema. Dictated by: Galdino Hernadez M.D. on 06/30/2021 at 21:42 Approved by: Galdino Hernadez M.D. on 06/30/2021 at 21:45
--- NOTE | 2021-06-30 20:44 | ED_ITS ---
HPI - Fever General Chief Complaint: Fever Stated Complaint: 102.9F FEVER, BODY ACHES Time Seen by Provider: 06/30/21 20:35 Source: patient Mode of arrival: Ambulatory History of Present Illness HPI Narrative: 68 year old male former smoker with history of stage IV adenocarcinoma, diabetes, hypertension, adrenal insufficiency presents with his feeling quite ill over the past few days with fever today as high as 102-103. He has not had any treatment for his lung cancer in over a year as he was intolerant of the side effects associated with chemotherapy. He is rather nondescript of his symptoms but says he generally feels unwell and is achy. He denies any significant shortness of breath but has had cough and has been more fatigued than normal. He denies any chest pain. He has got mild nausea but denies any vomiting. He denies dysuria, frequency or urgency. Related Data Home Medications Medication Instructions Recorded Confirmed aspirin 81 mg chewable tablet 81 mg PO DAILY 02/07/20 02/21/21 Previous Rx's Medication Instructions Recorded losartan 25 mg tablet 25 mg PO DAILY #90 tab 12/25/20 prednisone 5 mg tablet 5 mg PO DAILY #90 tab 03/18/21 tamsulosin 0.4 mg capsule 0.4 mg PO DAILY #90 cap 05/27/21 prednisone 5 mg tablet 5 mg PO DAILY #90 tab 06/17/21 Allergies Allergy/AdvReac Type Severity Reaction Status Date / Time Penicillins Allergy Intermediate Hives Verified 10/15/20 15:06 hydrocodone Allergy ITCHING Verified 10/15/20 15:06 bee stings Allergy Intermediate Hives Uncoded 10/15/20 15:06 Review of Systems Review of Systems Narrative: GENERAL: See HPI HEENT: Denies sinus pain, ear pain, sore throat, difficulty swallowing, dizziness. RESPIRATORY: Denies dyspnea, cough, wheezing, hemoptysis, sputum. CARDIOVASCULAR: Denies chest pain, palpitations, orthopnea, edema, GASTROINTESTINAL: See HPI : Denies dysuria, frequency, incontinence, hematuria, urinary retention. MUSCULOSKELETAL: denies weakness, joint pain, or bony pain SKIN: Denies rash, skin lesions, or other NEUROLOGIC: Denies weakness, headache, numbness, change in speech, confusion, seizures, incoordination. PSYCHIATRIC: No concerning psychosocial issues. 12 point review of systems is negative except for those stated above Patient History Medical History Adenocarcinoma of right lung, stage 4 Adrenal insufficiency BPH w urinary obs/LUTS Diabetes History of colonic polyps Hypertension Nocturia Port-A-Cath in place Tobacco consumption Urinary frequency Surgical History H/O hand surgery (~2013) H/O shoulder surgery (~1997) History of lung surgery History of vascular access device Family History Father Prostate cancer Social History household members: spouse Smoking Status: Former smoker alcohol intake: current substance use type: does not use Smoking Status: Former smoker alcohol intake frequency: 3 or more drinks per day Substance Use Type: does not use Exam Narrative Exam Narrative: GENERAL: [66] year old patient appears stated age. Well-developed patient, in moderate distress, obviously unwell, tachycardic and tachypneic on arrival, septic protocol initiated HEAD: Atraumatic. Normocephalic. EYES: Pupils equal round and reactive. Extraocular motions intact. No scleral icterus. No injection or drainage. ENT: Dry mucous membranes. Nose without bleeding, purulent drainage. Throat without erythema, tonsillar hypertrophy or exudate. Airway patent. NECK: Trachea midline. Non tender CARDIOVASCULAR: Tachycardic but regular rhythm without murmurs, gallops, or rubs. RESPIRATORY: Decreased breath sounds throughout prolonged expiratory phase and faint crackles in bilateral bases. Tachypneic but no significant use of accessory muscles, no hypoxemia GASTROINTESTINAL: Abdomen soft, non-tender, nondistended. EXTREMITIES: No edema or joint tenderness. BACK: Nontender without deformity or crepitance. No flank tenderness. NEURO: AOx3. SKIN: No rash or erythema of visible areas Initial Vital Signs Initial Vital Signs: Vital Signs Temperature 100.1 F H 06/30/21 20:40 Pulse Rate 130 H 06/30/21 20:40 Respiratory Rate 24 06/30/21 20:40 Blood Pressure 145/83 H 06/30/21 20:40 Pulse Oximetry 97 06/30/21 20:40 Course Course Course Narrative: Sepsis Guideline Compliance It is my opinion that the patient DOES in fact have a likely infectious etiology for meeting Sepsis Criteria. SIRS Criteria: [ ] HR (time:), [ ] BP (time:), [ ] RR (time:) , [ ] WBC (time:) Criteria for Severe Sepsis: [ ] Lactate > 2 [ ] BP < 90 [ ] Creat > 2.0 [ ] T. Bili > 2.0 [ ] No criteria for Severe Sepsis / Septic Shock in ED Time of Severe Sepsis / Septic Shock: [ ] Upon meeting sepsis criteria resuscitation according to Best Practice Statements and in accordance with this patient?s safety the following was initiated: Fluids: 30?mL/kg of IV crystalloid fluid ordered to be given within the first 1 hour of meeting sepsis criteria. [ ] ABW used [ ] IBW (insert IBW) used due to BMI > 30 Antibiotics: IV antimicrobials be initiated as soon as possible after recognition and within one hour for both sepsis and septic shock Orders Ordered: ED Orders 06/30/21 20:40 XR chest 1V Stat EKG-12 Lead Stat RT Consult Eval and Treat NOW 06/30/21 21:00 Blood Culture Stat CRP [C-Reactive Protein Quant] Stat Complete Blood Count AUTO DIFF Stat Comprehensive Metabolic Panel Stat D Dimer Stat Ferritin Stat LDH [Lactate Dehydrogenase] Stat Lactate (Lactic Acid) Stat Lipase Stat Procalcitonin Stat 06/30/21 21:12 Respiratory Panel (Film Array) Stat 06/30/21 21:49 CT angio chest PE protocol Stat Acetaminophen (Acetaminophen 325 Mg Tablet) 650 mg PO Q6HR PRN PRN Reason: Fever/Mild Pain (1-3) Last Admin: 07/01/21 01:23 Dose: 650 mg Documented by: MXSMITH Sodium Chloride (Normal Saline 0.9%) 1,000 mls @ 125 mls/hr IV CONT CINDI Last Admin: 07/01/21 01:14 Dose: 125 mls/hr Documented by: MXSMITH Losartan Potassium (Losartan 25 Mg Tablet) 25 mg PO DAILY CINDI Ondansetron HCl (Ondansetron 4 Mg/2 Ml Inj) 4 mg IV Q4HR PRN PRN Reason: Nausea And Vomiting Tamsulosin HCl (Tamsulosin 0.4 Mg Capsule) 0.4 mg PO DAILY CINDI Discontinued Medications Sodium Chloride (Normal Saline 0.9%) 1,000 mls @ 1,000 mls/hr IV BOLUS ONE Stop: 06/30/21 21:39 Last Admin: 06/30/21 21:09 Dose: Not Given Documented by: VIDYA Levofloxacin (Levaquin) 750 mg in 150 mls @ 100 mls/hr IV NOW ONE Stop: 06/30/21 22:13 Last Infusion: 06/30/21 23:04 Dose: 0 mls/hr Documented by: Admin: 06/30/21 21:35 Dose: 100 mls/hr Documented by: VIDYA Lactated Ringer's (Lactated Ringers) 2,190 mls @ 730 mls/hr 30 ml/kg infuse over 3 hr (2190 ml) IV NOW ONE Stop: 06/30/21 23:50 Last Infusion: 07/01/21 00:28 Dose: 0 mls/hr Documented by: Admin: 06/30/21 21:13 Dose: 730 mls/hr Documented by: VIDYA Vital Signs Vital signs: Vital Signs - 8 hr 06/30/21 20:40 06/30/21 21:21 06/30/21 21:23 Temperature 100.1 F H Pulse Rate 130 H 125 H 124 H Respiratory Rate 24 Blood Pressure 145/83 H 135/72 Pulse Oximetry 97 95 95 06/30/21 21:30 06/30/21 21:35 06/30/21 22:00 Temperature 101.8 F H Pulse Rate 124 H 124 H 126 H Respiratory Rate Blood Pressure 145/78 H 151/75 H Pulse Oximetry 95 94 94 06/30/21 22:23 06/30/21 22:30 06/30/21 23:00 Temperature 102.1 F H Pulse Rate 120 H 120 H 123 H Respiratory Rate Blood Pressure 141/68 H 141/78 H 145/75 H Pulse Oximetry 96 95 94 06/30/21 23:30 06/30/21 23:31 Temperature Pulse Rate 124 H 123 H Respiratory Rate Blood Pressure 110/54 L Pulse Oximetry 95 93 MDM - Fever Lab Data Result diagrams: 06/30/21 21:00 06/30/21 21:00 Labs: Lab Results 06/30/21 06/30/21 06/30/21 Range/Units 21:00 21:00 21:00 WBC 4.6 (4.5-11.0) X10^3/uL RBC 4.38 L (4.5-5.9) X10^6/uL Hgb 13.9 (13.5-17.5) g/dL Hct 40.2 L (41-53) % MCV 91.8 (80-100) fL MCH 31.8 (26-34) PG MCHC 34.6 (30-36) % RDW 13.9 (11.6-14.8) % Plt Count 194 (150-400) X10^3/uL Neut % (Auto) 51.4 (50-75) % Lymph % (Auto) 29.1 (25-40) % [place] % (Auto) 16.7 H (3-14) % Eos % (Auto) 1.9 L (2-4) % Baso % (Auto) 0.9 (0-2) % Neut # (Auto) 2400 (8276-8284) /uL Lymph # (Auto) 1300 (0456-4151) /uL [place] # (Auto) 800 (0-900) /uL Eos # (Auto) 100 (0-450) /uL Baso # (Auto) 0 (0-100) /uL D-Dimer (<230) ng/mL Sodium 133 L (137-145) mmol/L Potassium 3.6 (3.4-5.1) mmol/L Chloride 97 L (98-107) mmol/L Carbon Dioxide 24 (22-32) mmol/L BUN 17 (9-20) mg/dL Creatinine 1.09 (0.66-1.25) mg/dL Estimated GFR > 60 (>60) mL/min BUN/Creatinine Ratio 15.6 (6-22) Glucose 117 H (80-110) mg/dL Lactate 0.9 (0.7-2.1) mmol/L Calcium 8.8 (8.4-10.2) mg/dL Ferritin (18-464) ng/mL Total Bilirubin 0.8 (0.2-1.3) mg/dL AST 33 (17-59) IU/L ALT 25 (<50) IU/L Alkaline Phosphatase 52 (38-126) U/L Lactate Dehydrogenase (313-618) U/L C-Reactive Protein (<1.0) mg/dL Total Protein 8.7 H (6.3-8.2) g/dL Albumin 4.7 (3.5-5.0) g/dL Globulin 4.0 (1.7-4.1) g/dL Albumin/Globulin Ratio 1.2 (1.0-2.8) Lipase 59 (23-300) U/L Procalcitonin 0.22 (<0.5) ng/mL Chlamy pneumoniae PCR (Not Detect) Adenovirus (PCR) (Not Detect) B. pertussis DNA (PCR) (Not Detecte) B.parapertussis DNA PCR (Not Detecte) Coronavirus OC43 (PCR) (Not Detect) Coronavirus HKU1 (PCR) (Not Detect) Coronavirus 229E (PCR) (Not Detect) SARS-CoV-2 (PCR) (Not Detecte) Coronavirus NL63 (PCR) (Not Detect) Human Metapneumovir PCR (Not Detect) Influenza Type A (PCR) (Not Detect) Influenza Type B (PCR) (Not Detect) M. pneumoniae (PCR) (Not Detect) Parainfluenza 1 (PCR) (Not Detect) Parainfluenza 2 (PCR) (Not Detect) Parainfluenza 3 (PCR) (Not Detect) Parainfluenza 4 (PCR) (Not Detect) RSV (PCR) (Not Detect) Entero/Rhino (PCR) (Not Detect) 06/30/21 06/30/21 06/30/21 Range/Units 21:00 21:00 21:12 WBC (4.5-11.0) X10^3/uL RBC (4.5-5.9) X10^6/uL Hgb (13.5-17.5) g/dL Hct (41-53) % MCV (80-100) fL MCH (26-34) PG MCHC (30-36) % RDW (11.6-14.8) % Plt Count (150-400) X10^3/uL Neut % (Auto) (50-75) % Lymph % (Auto) (25-40) % [place] % (Auto) (3-14) % Eos % (Auto) (2-4) % Baso % (Auto) (0-2) % Neut # (Auto) (6139-0373) /uL Lymph # (Auto) (5871-4099) /uL [place] # (Auto) (0-900) /uL Eos # (Auto) (0-450) /uL Baso # (Auto) (0-100) /uL D-Dimer 380 H (<230) ng/mL Sodium (137-145) mmol/L Potassium (3.4-5.1) mmol/L Chloride (98-107) mmol/L Carbon Dioxide (22-32) mmol/L BUN (9-20) mg/dL Creatinine (0.66-1.25) mg/dL Estimated GFR (>60) mL/min BUN/Creatinine Ratio (6-22) Glucose (80-110) mg/dL Lactate (0.7-2.1) mmol/L Calcium (8.4-10.2) mg/dL Ferritin 412 (18-464) ng/mL Total Bilirubin (0.2-1.3) mg/dL AST (17-59) IU/L ALT (<50) IU/L Alkaline Phosphatase (38-126) U/L Lactate Dehydrogenase 365 (313-618) U/L C-Reactive Protein 2.5 H (<1.0) mg/dL Total Protein (6.3-8.2) g/dL Albumin (3.5-5.0) g/dL Globulin (1.7-4.1) g/dL Albumin/Globulin Ratio (1.0-2.8) Lipase (23-300) U/L Procalcitonin (<0.5) ng/mL Chlamy pneumoniae PCR Not detected (Not Detect) Adenovirus (PCR) Not detected (Not Detect) B. pertussis DNA (PCR) Not detected (Not Detecte) B.parapertussis DNA PCR Not detected (Not Detecte) Coronavirus OC43 (PCR) Not detected (Not Detect) Coronavirus HKU1 (PCR) Not detected (Not Detect) Coronavirus 229E (PCR) Not detected (Not Detect) SARS-CoV-2 (PCR) Detected H (Not Detecte) Coronavirus NL63 (PCR) Not detected (Not Detect) Human Metapneumovir PCR Not detected (Not Detect) Influenza Type A (PCR) Not detected (Not Detect) Influenza Type B (PCR) Not detected (Not Detect) M. pneumoniae (PCR) Not detected (Not Detect) Parainfluenza 1 (PCR) Not detected (Not Detect) Parainfluenza 2 (PCR) Not detected (Not Detect) Parainfluenza 3 (PCR) Not detected (Not Detect) Parainfluenza 4 (PCR) Not detected (Not Detect) RSV (PCR) Not detected (Not Detect) Entero/Rhino (PCR) Not detected (Not Detect) Imaging Data CT scan - chest: Radiologist's Impression: [address] [address] [address] Scan Report Signed Patient: Anmol Hinojosa MR#: [id number] : 1955 Acct:[id number] Age/Sex: 66 / M Date of Service: 06/30/21 Loc: ED Accession Number: [id number] ?? Procedure: CT angio chest PE protocol Ordering Provider: Jefe Plascencia D.O. PROCEDURE:? CT ANGIO CHEST PE PROTOCOL ? INDICATIONS:? tachycardia, cough, SOB, ? TECHNIQUE:? After the administration of intravenous contrast, 2 mm thick sections acquired from the pulmonary apices to the posterior costophrenic angles.? 3-dimensional maximum intensity projection (MIP) coronal and sagittal reformats were then acquired through the thorax.? For radiation dose reduction, the following was used:? automated exposure control, adjustment of mA and/or kV according to patient size.? ? COMPARISON:? [facility], CT, CT ANGIO CHEST PE PROTOCOL, 10/19/2019, 3:13. ? FINDINGS:? Image quality:? Excellent.? ? Pulmonary arteries:? Pulmonary arteries are normal in size, and demonstrate no intraluminal filling defects to suggest central pulmonary embolism.? ? Lungs and pleura:? Right lung volume loss.? Interlobular septal thickening and ground-glass opacity.? Right pleural thickening.? There is a calcified pleural plaque at the right apex, ().? No significant pleural effusion.? No pneumothorax.? Central and peripheral airways are patent.? ? Mediastinum:? Right-sided port with the catheter tip at the cavoatrial junction.? Heart size is normal, without pericardial effusion.? No mediastinal or hilar cherelle opathy.? Right upper paratracheal lymph node measuring 0.8 cm, (), unchanged.? Thoracic aorta is normal in caliber and enhancement.? Esophagus is normal in caliber, without hiatal hernia.? ? Bones and chest wall:? No suspicious bony lesions.? Ribs and thoracic spine appear intact throughout.? Thyroid gland is unremarkable.? No axillary or supraclavicular adenopathy.? ? Abdomen:? Hypodensity in the left lobe of the liver is unchanged.? Small left adrenal nodule is unchanged. ? IMPRESSION:? 1. No central pulmonary embolism. ? 2. Mild ground-glass opacity.? This could be due to infectious/inflammatory etiology.? Pulmonary edema could have a similar appearance. ? 3. Right hemithorax pleural thickening appears similar to before.? Calcified pleural plaque at the right apex. ? ? ? Dictated by: Galdino Hernadez M.D. on 06/30/2021 at 22:31 ? ? Approved by: Galdino Hernadez M.D. on 06/30/2021 at 22:40 ? Chest x-ray: Radiologist's Impression: Launch?Image [address] [address] XRay Report Signed Patient: Anmol Hinojosa MR#: [id number] : 1955 Acct:[id number] Age/Sex: 66 / M Date of Service: 06/30/21 Loc: ED Accession Number: [id number] ?? Procedure: XR chest 1V Ordering Provider: Jefe Plascencia D.O. PROCEDURE:? XR CHEST 1V ? INDICATIONS:? suspected sepsis ? TECHNIQUE:? One view of the chest was acquired.? ? COMPARISON:? [facility], CT, CT CHEST ABD PEL W CON, 02/27/2021, 13:42.? [facility], CR, XR CHEST 1V, 11/15/2019, 13:40.? [facility], CR, XR CHEST 1V, 10/19/2019, 2:29. ? FINDINGS:? ? Surgical changes and devices:? Right-sided port with the catheter tip at the lower 3rd of the SVC. ? Lungs and pleura:? Low lung volumes.? Increased interstitial markings.? No pleural effusions or pneumothorax.? ? Mediastinum:? Mediastinal contours appear normal.? Heart size is normal.? ? Bones and chest wall:? No suspicious bony lesions.? Overlying soft tissues appear unremarkable.? ? IMPRESSION:? Low lung volumes.? Prominent nonspecific interstitial markings is again seen.? This could be due to a pleural thickening as was seen on prior CT, atelectasis/scarring, infectious/inflammatory etiology, or edema. ? ? Dictated by: Galdino Hernadez M.D. on 06/30/2021 at 21:42 ? ? Approved by: Galdino Hernadez M.D. on 06/30/2021 at 21:45 ? Discharge Plan Departure Patient Disposition: Admitted As Inpatient Clinical Impression: Sepsis, COVID-19 Admit Date/Time: 06/30/21 23:53 Admit Provider: Lisa Hood
[2021-06-30] MEDS: LACTATED RINGERS 2,190 ML 730 ML IV (21:13)
[2021-06-30 21:16] LABS: Add Manual Diff / Slide Review NO; Basophils Absolute Auto 0 /uL (0-100); Basophils Percent Auto 0.9 % (0-2); Eosinophils Absolute Auto 100 /uL (0-450); Eosinophils Percent Auto 1.9 % (2-4); Hematocrit 40.2 % (41-53); Hemoglobin 13.9 g/dL (13.5-17.5); Lymphocytes Absolute Auto 1300 /uL (1100-4500); Lymphocytes Percent Auto 29.1 % (25-40); Mean Corpuscular HGB Conc 34.6 % (30-36); Mean Corpuscular Hemoglobin 31.8 PG (26-34); Mean Corpuscular Volume 91.8 fL (80-100); Monocytes Absolute Auto 800 /uL (0-900); Monocytes Percent Auto 16.7 % (3-14); Neutrophils Absolute Auto 2400 /uL (1500-7000); Neutrophils Percent Auto 51.4 % (50-75); Platelet Count 194 X10^3/uL (150-400); Red Blood Cell Count 4.38 X10^6/uL (4.5-5.9); Red Cell Distribution Width 13.9 % (11.6-14.8); White Blood Cell Count 4.6 X10^3/uL (4.5-11.0)
[2021-06-30 21:23] LABS: Alanine Aminotransferase 25 IU/L (<50); Albumin 4.7 g/dL (3.5-5.0); Albumin Globulin Ratio 1.2 (1.0-2.8); Alkaline Phosphatase 52 U/L (38-126); Aspartate Aminotransferase 33 IU/L (17-59); BUN Creatinine Ratio 15.6 (6-22); Bilirubin Total 0.8 mg/dL (0.2-1.3); Blood Urea Nitrogen 17 mg/dL (9-20); Calcium 8.8 mg/dL (8.4-10.2); Carbon Dioxide 24 mmol/L (22-32); Chloride 97 mmol/L (98-107); Estimated Glomerular Filt Rate > 60 mL/min (>60); Glucose 117 mg/dL (80-110); HEMOLYSIS 27 (0-50); Lipase 59 U/L (23-300); Potassium 3.6 mmol/L (3.4-5.1); Sodium 133 mmol/L (137-145); Total Protein 8.7 g/dL (6.3-8.2)
[2021-06-30] MEDS: levoFLOXacin 750 MG/150 ML PIGGYBACK 100 MG IV (21:35)
[2021-06-30 21:39] LABS: Lactate (Lactic Acid) 0.9 mmol/L (0.7-2.1)
[2021-06-30 21:40] LABS: Procalcitonin 0.22 ng/mL (<0.5)
--- NOTE | 2021-06-30 21:49 | DI.CT.S_ITS ---
PROCEDURE: CT ANGIO CHEST PE PROTOCOL INDICATIONS: tachycardia, cough, SOB, TECHNIQUE: After the administration of intravenous contrast, 2 mm thick sections acquired from the pulmonary apices to the posterior costophrenic angles. 3-dimensional maximum intensity projection (MIP) coronal and sagittal reformats were then acquired through the thorax. For radiation dose reduction, the following was used: automated exposure control, adjustment of mA and/or kV according to patient size. COMPARISON: [facility], CT, CT ANGIO CHEST PE PROTOCOL, 10/19/2019, 3:13. FINDINGS: Image quality: Excellent. Pulmonary arteries: Pulmonary arteries are normal in size, and demonstrate no intraluminal filling defects to suggest central pulmonary embolism. Lungs and pleura: Right lung volume loss. Interlobular septal thickening and ground-glass opacity. Right pleural thickening. There is a calcified pleural plaque at the right apex, (). No significant pleural effusion. No pneumothorax. Central and peripheral airways are patent. Mediastinum: Right-sided port with the catheter tip at the cavoatrial junction. Heart size is normal, without pericardial effusion. No mediastinal or hilar adenopathy. Right upper paratracheal lymph node measuring 0.8 cm, (4/32), unchanged. Thoracic aorta is normal in caliber and enhancement. Esophagus is normal in caliber, without hiatal hernia. Bones and chest wall: No suspicious bony lesions. Ribs and thoracic spine appear intact throughout. Thyroid gland is unremarkable. No axillary or supraclavicular adenopathy. Abdomen: Hypodensity in the left lobe of the liver is unchanged. Small left adrenal nodule is unchanged. IMPRESSION: 1. No central pulmonary embolism. 2. Mild ground-glass opacity. This could be due to infectious/inflammatory etiology. Pulmonary edema could have a similar appearance. 3. Right hemithorax pleural thickening appears similar to before. Calcified pleural plaque at the right apex. Dictated by: Galdino Hernadez M.D. on 06/30/2021 at 22:31 Approved by: Galdino Hernadez M.D. on 06/30/2021 at 22:40
[2021-06-30 22:14] LABS: Adenovirus Not Detected (Not Detect); B. parapertussis Not Detected (Not Detecte); Bordetella pertussis Not Detected (Not Detecte); Chlamydophila pneumoniae Not Detected (Not Detect); Coronavirus 229E Not Detected (Not Detect); Coronavirus HKU1 Not Detected (Not Detect); Coronavirus NL 63 Not Detected (Not Detect); Coronavirus OC43 Not Detected (Not Detect); Human Metapneumovirus Not Detected (Not Detect); Human Rhinovirus/Enterovirus Not Detected (Not Detect); Influenza A Not Detected (Not Detect); Influenza B Not Detected (Not Detect); Mycoplasma pneumoniae Not Detected (Not Detect); Parainfluenza Virus 1 Not Detected (Not Detect); Parainfluenza Virus 2 Not Detected (Not Detect); Parainfluenza Virus 3 Not Detected (Not Detect); Parainfluenza Virus 4 Not Detected (Not Detect); Respiratory Syncytial Virus Not Detected (Not Detect)
[2021-06-30 22:16] LABS: SARS- CoV-2 Detected (Not Detecte)
[2021-06-30 22:58] LABS: D Dimer 380 ng/mL (<230)
[2021-06-30 23:02] LABS: C-Reactive Protein Quant 2.5 mg/dL (<1.0); Lactate Dehydrogenase 365 U/L (313-618)
[2021-06-30 23:35] LABS: Ferritin 412 ng/mL (18-464)
[2021-07-01] VITALS (15 sets, daily range): BP systolic 100–155; BP diastolic 58–83; PULSE 79–123; RESP 16–21; TEMP 36.1–40.1; O2SAT 92–99; BMI 31.9
[2021-07-01] MEDS: SODIUM CHLORIDE 0.9% 1,000 ML 125 ML IV ×2 (01:14→08:57)
[2021-07-01] MEDS: ACETAMINOPHEN 325 MG TABLET 650 MG PO ×2 (01:23→10:54)
--- NOTE | 2021-07-01 01:52 | PC.NURSE ---
Addendum entered by Gianna Jama R.N. 07/01/21 02:25: Ice pack applied to his armpit to help decrease this temperature which is currently 103.3 F (it was 104.2 F earlier) Original Note: Pt admitted tonight with covid pt sob with any activity, lungs are tight and coarse. On RA at 91-96%, Hr 121, pt febrile 104.2 F, tylenol 650 mg PO given, IVF started. Bed alarm in place. Pt unable to answer all admissions questions due to not feeling well. pt not vaccinated for covid or received his flu vaccine. Pt not interested in either receiving the covid vaccine or flu shots. pt place on continuos oxygen pulse oximetry.
[2021-07-01] MEDS: ONDANSETRON 4 MG/2 ML INJ IV ×2 (04:40→10:54)
--- NOTE | 2021-07-01 07:37 | PM.HP.1 ---
History of Present Illness History of Present Illness Date Patient Seen: 07/01/21 Time Patient Seen: 07:37 Chief complaint: 102.9F FEVER, BODY ACHES Narrative: 66-year-old male with known adenocarcinoma of the right lung stage IV currently not receiving treatment, felt to be in remission at least. He presented via the emergency department with symptoms of feeling quite ill with fever as high as 103. He has generalized achiness and generalized sense of being unwell. No other more specific symptoms. He specifically denied any shortness of breath does admit to bit of a cough and feeling more fatigued. No chest pain no urinary tract symptoms, did have some nausea and emesis x1 here in the hospital In the ER he was evaluated found to have COVID-19 with probable pneumonia based on CT imaging. He had normal white blood cell count. He was quite tachycardic and minimally hypotensive to start with thus Magui concerns about sepsis. He has responded somewhat to IV fluids with improved blood pressure and heart rate. He is not hypoxic. He has not been vaccinated against COVID-19. Has been receiving treatment for his lung cancer although has had that on hold for the last several months. Given his high risk is admitted for further evaluation and monitoring. Was given a dose of IV levofloxacin in the ER early on. Patient History Medical History Adenocarcinoma of right lung, stage 4 Adrenal insufficiency BPH w urinary obs/LUTS Diabetes History of colonic polyps Hypertension Nocturia Port-A-Cath in place Tobacco consumption Urinary frequency Surgical History H/O hand surgery (~2013) H/O shoulder surgery (~1997) History of lung surgery History of vascular access device Family & Social History Family History Father Prostate cancer Social History: household members spouse Prior Living Arrangements House Safety & Behavioral: Feels Safe in Current Yes Environment Been Physically Hurt or No Threatened By a Person Tobacco & Substance use: Smoking Status Former smoker alcohol intake current alcohol intake frequency 3 or more drinks per day Substance Use Type does not use Meds Home Medications and Allergies Home Medications Medication Instructions Recorded Confirmed Type aspirin 81 mg chewable tablet 81 mg PO DAILY 02/07/20 02/21/21 History losartan 25 mg tablet 25 mg PO DAILY #90 tab 10/12/21 12/09/21 Rx prednisone 5 mg tablet 5 mg PO DAILY #90 tab 03/18/21 Rx tamsulosin 0.4 mg capsule 0.4 mg PO DAILY #90 cap 05/27/21 Rx prednisone 5 mg tablet 5 mg PO DAILY #90 tab 06/17/21 Rx Allergies Allergy/AdvReac Type Severity Reaction Status Date / Time bee venom protein (honey bee) Allergy Intermediate Hives Verified 07/01/21 07:47 Penicillins Allergy Intermediate Hives Verified 10/15/20 15:06 hydrocodone Allergy ITCHING Verified 10/15/20 15:06 Review of Systems Review of Systems ROS: Yes All systems reviewed with the patient and are negative except as otherwise documented Exam Vital Signs (past 8 hours): - 07/01/21 00:00 07/01/21 00:01 07/01/21 00:30 Temperature Pulse Rate 119 H 120 H 123 H Respiratory Rate Blood Pressure 108/61 Pulse Oximetry 94 96 92 07/01/21 00:40 07/01/21 01:23 07/01/21 02:16 Temperature 104.2 F H 104.2 F H 103.3 F H Pulse Rate 122 H 120 H Respiratory Rate 18 16 Blood Pressure 155/77 H Pulse Oximetry 93 94 07/01/21 02:22 07/01/21 02:53 07/01/21 04:34 Temperature 103.3 F H 103.4 F H 99.2 F Pulse Rate 112 H Respiratory Rate 18 Blood Pressure 106/73 Pulse Oximetry 95 07/01/21 07:04 Temperature 98.6 F Pulse Rate 115 H Respiratory Rate Blood Pressure Pulse Oximetry 96 Oxygen Delivery Method Room Air Oxygen Flow Rate 0 Narrative Exam Narrative: Ill-appearing 66-year-old male lying in hospital bed HEENT-unremarkable Neck-no bruits Lungs-good breath sounds Heart-regular rate and rhythm Abdomen-benign Objective Labs Result Diagrams: 06/30/21 21:00 06/30/21 21:00 Labs: Laboratory Results - last 24 hr 06/30/21 06/30/21 06/30/21 21:00 21:00 21:00 WBC 4.6 RBC 4.38 L Hgb 13.9 Hct 40.2 L MCV 91.8 MCH 31.8 MCHC 34.6 RDW 13.9 Plt Count 194 Neut % (Auto) 51.4 Lymph % (Auto) 29.1 [place] % (Auto) 16.7 H Eos % (Auto) 1.9 L Baso % (Auto) 0.9 Neut # (Auto) 2400 Lymph # (Auto) 1300 [place] # (Auto) 800 Eos # (Auto) 100 Baso # (Auto) 0 D-Dimer Sodium 133 L Potassium 3.6 Chloride 97 L Carbon Dioxide 24 BUN 17 Creatinine 1.09 Estimated GFR > 60 BUN/Creatinine Ratio 15.6 Glucose 117 H Lactate 0.9 Calcium 8.8 Ferritin Total Bilirubin 0.8 AST 33 ALT 25 Alkaline Phosphatase 52 Lactate Dehydrogenase C-Reactive Protein Total Protein 8.7 H Albumin 4.7 Globulin 4.0 Albumin/Globulin Ratio 1.2 Lipase 59 Procalcitonin 0.22 Chlamy pneumoniae PCR Adenovirus (PCR) B. pertussis DNA (PCR) B.parapertussis DNA PCR Coronavirus OC43 (PCR) Coronavirus HKU1 (PCR) Coronavirus 229E (PCR) SARS-CoV-2 (PCR) Coronavirus NL63 (PCR) Human Metapneumovir PCR Influenza Type A (PCR) Influenza Type B (PCR) M. pneumoniae (PCR) Parainfluenza 1 (PCR) Parainfluenza 2 (PCR) Parainfluenza 3 (PCR) Parainfluenza 4 (PCR) RSV (PCR) Entero/Rhino (PCR) 06/30/21 06/30/21 06/30/21 21:00 21:00 21:12 WBC RBC Hgb Hct MCV MCH MCHC RDW Plt Count Neut % (Auto) Lymph % (Auto) [place] % (Auto) Eos % (Auto) Baso % (Auto) Neut # (Auto) Lymph # (Auto) [place] # (Auto) Eos # (Auto) Baso # (Auto) D-Dimer 380 H Sodium Potassium Chloride Carbon Dioxide BUN Creatinine Estimated GFR BUN/Creatinine Ratio Glucose Lactate Calcium Ferritin 412 Total Bilirubin AST ALT Alkaline Phosphatase Lactate Dehydrogenase 365 C-Reactive Protein 2.5 H Total Protein Albumin Globulin Albumin/Globulin Ratio Lipase Procalcitonin Chlamy pneumoniae PCR Not detected Adenovirus (PCR) Not detected B. pertussis DNA (PCR) Not detected B.parapertussis DNA PCR Not detected Coronavirus OC43 (PCR) Not detected Coronavirus HKU1 (PCR) Not detected Coronavirus 229E (PCR) Not detected SARS-CoV-2 (PCR) Detected H Coronavirus NL63 (PCR) Not detected Human Metapneumovir PCR Not detected Influenza Type A (PCR) Not detected Influenza Type B (PCR) Not detected M. pneumoniae (PCR) Not detected Parainfluenza 1 (PCR) Not detected Parainfluenza 2 (PCR) Not detected Parainfluenza 3 (PCR) Not detected Parainfluenza 4 (PCR) Not detected RSV (PCR) Not detected Entero/Rhino (PCR) Not detected Assessment & Plan Assessment & Plan narrative: 1. COVID-19 infection-patient's symptoms are almost certainly due to COVID-19. He has a normal white count negative procalcitonin etcetera. He does not meet criteria for remdesivir per current guidelines as he is not hypoxic. Patient apparently has expressed some reservation about this medication as well. Pharmacy has suggested baricitinib which I think makes sense. Patient may well refuse this as well given his reaction to immunosuppressive therapy previously but I think this is entirely appropriate. I would also offer him oral antiviral therapies but again he is hospitalized does not meet criteria for those therapies either. At this point patient does not appear to be severely ill from a pulmonary standpoint not even having a oxygen requirement. Patient would be candidate for COVID-19 vaccination as he begins to recover from this illness, specially now that is not receiving any specific treatment or intervention for his lung cancer. I will have to have this discussion with him as he improves. He is not really feeling well enough to have any sort of in depth discussion at this time. 2. Systemic inflammatory syndrome-patient her sleep felt to have possible sepsis but at this point he has a normal white count no evidence of end-organ dysfunction not even hypoxic. He does have an elevated heart rate and diminished blood pressure that responded to fluids. Continue with fluid parenterally and continue to monitor. Do not believe patient requires additional antibiotic therapy at this point. Somewhat hesitant to continue high volume fluids as his primary diagnosis appears to be COVID-19 and generally patients with this diagnosis do better without excessive fluids, so now the thing seems somewhat stable and I think we have a more firm diagnosis I am going to cut back on IV fluids. 3. Diabetes-patient with diabetes normally diet controlled. Will monitor his numbers and treat with insulin as necessary specially well he continues on higher dose steroid therapy 4. Hypertension-patient normally on losartan at low-dose. However he presented relatively hypotensive and persists on the low end of the scale. I am going to hold his losartan for now. If blood pressure indeed goes up then will continue that as necessary 5. BPH with LUTS-patient chronically on tamsulosin which should be continued during this hospitalization 6. VTE prophylaxis-patient would benefit from Lovenox, at 40 mg subQ daily which is been ordered 7. Code status-full code as per patient 8. Renal insufficiency-patient with symptoms felt to be due to adrenal insufficiency secondary to his immunotherapy for his lung cancer. He has been maintained on 5 mg daily of prednisone. I will give him IV stress dose steroids for now and follow his blood sugars as above Patient deserves inpatient hospitalization in my opinion given his high risk of serious deterioration given his high risk status for COVID-19 etcetera. He also per current protocol requires parental remdesivir for treatment of his COVID infection Time Spent With Patient Critical Care time: I spent a total of [] minutes of critical care time on this patient's care today; this time is exclusive of procedural time. Quality VTE Deep Vein Thrombosis/Pulmonary Embolism Present on Admission: No
[2021-07-01] MEDS: BARICITINIB 2 MG TABLET 4 MG PO (08:57)
[2021-07-01] MEDS: ENOXAPARIN 40 MG/0.4 ML SYRINGE SUBCUT (08:57)
[2021-07-01] MEDS: HYDROCORTISONE 100 MG/2 ML VIAL IV ×3 (11:01→23:32)
--- NOTE | 2021-07-01 11:23 | CM.DANOTE ---
DCP: Case received, EMR reviewed. Did not meet with patient secondary to him being in isolation with COVID. Attempted to call patient's room, with no answer. Completed DCP assessment based upon information currently available. Patient is a 66 year old male who admitted yesterday evening to the care of the hospitalist team. PCP: Dr. Flaherty. Payer: confirmed: Medicare/[facility]. Patient came to the hospital via private vehicle secondary to having fever, body aches. Patient had temp of 103. Patient has history of adenocarcinoma state 4, not currently getting treatment. Patient had nausea and emesis upon admission. He was diagnosed with COVID-19, with probable pneumonia. He is currently in isolation, not on oxygen at this time according to executive director of nursing. Attempted to call patient's room, he did not answer. Patient resides here in [place] with his spouse, Tahira. His primary care provider is Dr. Flaherty. P: DCP to continue to follow for any needs. Patient should be able to go home when he is deemed medically stable. Nanci Peraza RN/Pocket Setter Discharge Planning/Care Management CM Discharge Assessment Start: 07/01/21 11:22 Freq: Status: Active Protocol: Document 07/01/21 11:22 (Rec: 07/01/21 11:23 [id number]) Discharge Planning Assessment Assigned Business Resiliency Manager Nanci Peraza RN/Pocket Setter Advance Directives? Yes Advance Directives on File Yes History Provided By Patient,Medical Record Prior Living Arrangements House Household Members spouse Type of transporation used prior to Drives own vehicle admit Independent with ADL's Yes Is patient alert and oriented? Yes Caregiver for Another No Barriers to Discharge No Discharge Plan Home Transportation Arrangement Spouse Referrals Initiated None needed Whiteboard Updated in Patient Room with No name and ext. # of Business Resiliency Manager Comment Patient has COVID, did not enter room. Review Status In Process Next Review Type Continued Stay Review
[2021-07-01] MEDS: SODIUM CHLORIDE 0.9% 1,000 ML 80 ML IV (16:38)
[2021-07-01] MEDS: INSULIN LISPRO 100 UNIT/ML 3ML VIAL SUBCUT (17:05)
[2021-07-02 03:00] VITALS: BP 128/81; PULSE 86; RESP 18; TEMP 36.3; O2SAT 97
[2021-07-02] MEDS: SODIUM CHLORIDE 0.9% 1,000 ML 80 ML IV (04:33)
[2021-07-02] MEDS: HYDROCORTISONE 100 MG/2 ML VIAL IV (06:33)
--- NOTE | 2021-07-02 07:55 | PM.DS.1 ---
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 He presented via the emergency department with symptoms of feeling quite ill with fever as high as 103. He has generalized achiness and generalized sense of being unwell. No other more specific symptoms. He specifically denied any shortness of breath does admit to bit of a cough and feeling more fatigued. No chest pain no urinary tract symptoms, did have some nausea and emesis x1 here in the hospital In the ER he was evaluated found to have COVID-19 with probable pneumonia based on CT imaging. He had normal white blood cell count. He was quite tachycardic and minimally hypotensive to start with thus Magui concerns about sepsis. He has responded somewhat to IV fluids with improved blood pressure and heart rate. He is not hypoxic. He has not been vaccinated against COVID-19. Has been receiving treatment for his lung cancer although has had that on hold for the last several months. Given his high risk is admitted for further evaluation and monitoring. Was given a dose of IV levofloxacin in the ER early on. Discharge Providers Provider Date of admission: 06/30/21 23:53 Discharge Date: 07/02/21 Primary care physician: Tulio Flaherty MD Discharge provider: Tulio Flaherty MD Summary Hospital Course Discharge Diagnosis: 1. COVID-19 infection, acute 2. Systemic inflammatory response syndrome, secondary to COVID-19 infection, resolved 3. Stage IV adenocarcinoma of right lung 4. Diabetes type 2 5. Adrenal insufficiency 6. BPH with LUTS Hospital Course: Patient was admitted after presenting to the ER as above. His vital signs stabilized with some IV fluid resuscitation. He continued to display symptoms consistent with his known COVID-19 infection with generalized myalgias arthralgias weakness and fatigue. He was febrile initially although this did improve during his hospitalization. Patient was not a candidate for treatment with anything like remdesivir given his lack of oxygen requirement. Patient also hesitant about this medication. I suggested strongly to the patient that he consider vaccination when he is 10 days out from diagnosis and beginning to improve or later. He still very hesitant about vaccination and I think is unlikely to follow through with this. Patient also noted to have an element of adrenal insufficiency a baseline chronically on prednisone 5 mg daily as per Oncology. He was treated with stress dose IV hydrocortisone. I advocate he continue on higher dose prednisone at least 10 mg daily for the next 2 weeks while he recovers from his COVID infection. He agrees with this. Patient was felt to be stable over time and while still symptomatic would take likely several more days to begin to improve. He is felt to be stable for discharge home to continue to recover from his infectious illness at home Status at Discharge Cognitive/behavioral status at discharge: at baseline, oriented Functional status at discharge: independent ambulation Overall status at discharge: patient is progressing back to baseline Exam Vital Signs (past 8 hours): - 07/02/21 03:00 Temperature 97.4 F L Pulse Rate 86 Respiratory Rate 18 Blood Pressure 128/81 Pulse Oximetry 97 Oxygen Delivery Method Room Air Oxygen Flow Rate 0 Objective Labs Result Diagrams: 06/30/21 21:00 06/30/21 21:00 [facility] [place] Medical History Adenocarcinoma of right lung, stage 4 Adrenal insufficiency BPH w urinary obs/LUTS Diabetes History of colonic polyps Hypertension Nocturia Port-A-Cath in place Tobacco consumption Urinary frequency Surgical History H/O hand surgery (~2013) H/O shoulder surgery (~1997) History of lung surgery History of vascular access device Family History Father Prostate cancer Social History household members: spouse Smoking Status: Former smoker alcohol intake: current substance use type: does not use Discharge Assessment & Plan Assessment and Plan Plan of Treatment: Patient to continue careful outpatient monitoring for complications of COVID infection Patient to increase prednisone to 10 mg daily for 2 weeks and return to 5 mg daily Patient to consider COVID-19 vaccination in the near term future for additional protection against severe disease given his high risk status Discharge Plan Discharge Plan Patient Disposition: Home Discharge orders & Medications Prescriptions: Continued losartan 25 mg tablet 25 mg PO DAILY Qty: 90 2RF tamsulosin 0.4 mg capsule 0.4 mg PO DAILY Qty: 90 0RF aspirin 81 mg Tablet,Chewable 81 mg PO DAILY 0RF Changed prednisone 5 mg Tablet 5 - 10 mg PO DAILY Qty: 90 1RF Rx Instructions: take 10mg daily for 2 weeks, then return to 5mg daily Discontinued prednisone 5 mg Tablet 5 mg PO DAILY Qty: 90 0RF Follow up/Referrals: Tulio Flaherty MD [Primary Care Provider] - 2 Weeks Discharge Health Status Multidrug resistant organism: No MDRO Diet/Activity/Treatments Diet: Diet as Tolerated Discharge Data Primary Care Provider: Tulio Flaherty Quality VTE Deep Vein Thrombosis/Pulmonary Embolism Present on Admission: No
[2021-07-02 08:00] VITALS: BP 147/87; PULSE 88; RESP 16; TEMP 36.7; O2SAT 97
[2021-07-02] MEDS: BARICITINIB 2 MG TABLET 4 MG PO (09:24)
[2021-07-02] MEDS: ENOXAPARIN 40 MG/0.4 ML SYRINGE SUBCUT (09:24)
[2021-07-02] MEDS: TAMSULOSIN 0.4 MG CAPSULE PO (09:24)
[2021-07-02] MEDS: INSULIN LISPRO 100 UNIT/ML 3ML VIAL SUBCUT (09:26)
--- NOTE | 2021-07-02 11:45 | PC.NURSE ---
Pt is dressed and ready for discharge home with Spouse. Portacath has been deaccessed. Went over d/c instructions with Pt - discussed d/c meds, time of last dose, reviewed stroke education, encouraged rest and fluid intake to prevent constipation or dehydration. Pt is to follow up in [address] Flaherty. Discussed quarantine recommendations-isolate for 5 days after symptoms have resolved. Pt denies further questions and was taken out via w/c by RN to POV with Spouse and all belongings.
== END 2021-07-02 11:50 | disposition home or self-care (01) | DRG 178 ==
LOC: ED 23:41 → AC 23:54
PROVIDERS: Admitting Provider Family Medicine; Emergency Provider Emergency Medicine; PCP Internal Medicine; Referring Provider Emergency Medicine; Visit Provider Internal Medicine
DX: U07.1 COVID-19 (principal); E27.40 Unspecified adrenocortical insufficiency; M79.10 Myalgia, unspecified site; N40.1 Benign prostatic hyperplasia with lower urinary tract symptoms; I10 Essential (primary) hypertension; E11.65 Type 2 diabetes mellitus with hyperglycemia; Z28.310 Unvaccinated for COVID-19; Z87.891 Personal history of nicotine dependence; Z28.89 Immunization not carried out for other reason
CPT/HCPCS: 36415; 71045; 71275; 80053; 82728; 82962; 83605; 83615; 83690; 84145; 85025; 85379; 86140; 87040; 87633; 93005; 96365; 99223; 99238; 99284; J1650; J1720; J1815; J1956; J2405

== ENCOUNTER 2021-07-18 11:52 | Inpatient (IN) | payer MEDICARE, OTHER, SELFPAY ==
[2021-07-11 11:04] VITALS: BMI 31.9
[2021-07-18] VITALS (31 sets, daily range): BP systolic 96–141; BP diastolic 53–83; PULSE 82–133; RESP 5–40; TEMP 36.9–38.2; O2SAT 93–100; BMI 31.5; BMI 31.9
--- NOTE | 2021-07-18 12:08 | DI.RAD.S_ITS ---
PROCEDURE: XR CHEST 1V INDICATIONS: suspected sepsis TECHNIQUE: One view of the chest was acquired. COMPARISON: [facility], CT, CT ANGIO CHEST PE PROTOCOL, 06/30/2021, 22:08. [facility], CR, XR CHEST 1V, 06/30/2021, 20:56. FINDINGS: Surgical changes and devices: Right chest Port-A-Cath Lungs and pleura: Right chest vague density is likely secondary to pleural thickening seen on recent CT. No pleural effusions or pneumothorax. Mediastinum: Mediastinal contours appear normal. Heart size is normal. Bones and chest wall: No suspicious bony lesions. Overlying soft tissues appear unremarkable. IMPRESSION: Right chest vague density likely represents pleural thickening. No evidence of acute superimposed process. Consider CT chest for direct comparison with previous CT. Dictated by: Patrick Gary M.D. on 07/18/2021 at 12:59 Approved by: Patrick Gary M.D. on 07/18/2021 at 13:01
[2021-07-18] MEDS: SODIUM CHLORIDE 0.9% 1,000 ML 1000 ML IV ×2 (12:31→16:40)
[2021-07-18 12:43] LABS: Add Manual Diff / Slide Review NO; Basophils Absolute Auto 0 /uL (0-100); Basophils Percent Auto 0.4 % (0-2); Eosinophils Absolute Auto 100 /uL (0-450); Eosinophils Percent Auto 1.2 % (2-4); Hematocrit 44.1 % (41-53); Hemoglobin 15.2 g/dL (13.5-17.5); Lymphocytes Absolute Auto 800 /uL (1100-4500); Lymphocytes Percent Auto 13.5 % (25-40); Mean Corpuscular HGB Conc 34.6 % (30-36); Mean Corpuscular Hemoglobin 31.9 PG (26-34); Mean Corpuscular Volume 92.3 fL (80-100); Monocytes Absolute Auto 400 /uL (0-900); Monocytes Percent Auto 6.8 % (3-14); Neutrophils Absolute Auto 4800 /uL (1500-7000); Neutrophils Percent Auto 78.1 % (50-75); Platelet Count 206 X10^3/uL (150-400); Red Blood Cell Count 4.77 X10^6/uL (4.5-5.9); Red Cell Distribution Width 14.2 % (11.6-14.8); White Blood Cell Count 6.1 X10^3/uL (4.5-11.0)
[2021-07-18 12:49] LABS: INR 1.1 (0.9-1.3); Prothrombin Time 12.3 SECONDS (10.1-12.7)
[2021-07-18 12:51] LABS: PTT Partial Thromboplastin Tim 29 SECONDS (26.4-36.2)
[2021-07-18 12:55] LABS: Alanine Aminotransferase 53 IU/L (<50); Albumin 4.8 g/dL (3.5-5.0); Albumin Globulin Ratio 1.3 (1.0-2.8); Alkaline Phosphatase 69 U/L (38-126); Aspartate Aminotransferase 39 IU/L (17-59); BUN Creatinine Ratio 15.4 (6-22); Bilirubin Total 0.8 mg/dL (0.2-1.3); Blood Urea Nitrogen 22 mg/dL (9-20); Calcium 9.2 mg/dL (8.4-10.2); Carbon Dioxide 30 mmol/L (22-32); Chloride 99 mmol/L (98-107); Estimated Glomerular Filt Rate 54 mL/min (>60); Globulin 3.7 g/dL (1.7-4.1); Glucose 146 mg/dL (80-110); HEMOLYSIS < 15 (0-50); Lipase 63 U/L (23-300); Sodium 139 mmol/L (137-145); Total Protein 8.5 g/dL (6.3-8.2)
[2021-07-18 13:12] LABS: Procalcitonin 0.65 ng/mL (<0.5)
--- NOTE | 2021-07-18 13:34 | ED_ITS ---
HPI - Arrhythmia/Palpitations General Chief Complaint: Arrhythmia/Palpitations Stated Complaint: Everything hurts, post covid, low bp, high hr Time Seen by Provider: 07/18/21 12:39 Source: patient Mode of arrival: Wheelchair History of Present Illness HPI narrative: Patient is a 66-year-old male history of hyperlipidemia recent COVID infection presenting today with fever and body aches. He overall does not feel great has pain all over not a great historian. states that he started not feeling well yesterday he threw up 1 or 2 times. No significant shortness of breath or cough. He is noted to be quite tachycardic here in the emergency department. He had fever of 101 this morning. He is afebrile now. Patient overall very confused and moaning pain all over under multiple blankets.According to , Patient actually vomited about 5 times at home. He was admitted to the hospital a couple weeks ago for COVID 06/30/2021-07/02/2021 Related Data Home Medications Medication Instructions Recorded Confirmed aspirin 81 mg chewable tablet 81 mg PO DAILY 02/07/20 07/18/21 Previous Rx's Medication Instructions Recorded losartan 25 mg tablet 25 mg PO DAILY #90 tab 12/25/20 prednisone 5 mg tablet 5 - 10 mg PO DAILY #90 tab 07/11/21 Allergies Allergy/AdvReac Type Severity Reaction Status Date / Time bee venom protein (honey bee) Allergy Intermediate Hives Verified 07/18/21 12:09 Penicillins Allergy Intermediate Hives Verified 07/18/21 12:09 hydrocodone Allergy ITCHING Verified 07/18/21 12:09 Review of Systems Review of Systems Narrative: GENERAL: + fever, HEENT: Denies sinus pain, ear pain, sore throat, difficulty swallowing, neck pain RESPIRATORY: Denies dyspnea, cough, wheezing, hemoptysis, sputum. CARDIOVASCULAR: Denies chest pain, palpitations, orthopnea, edema GASTROINTESTINAL: Vomiting : Denies dysuria, frequency, incontinence, hematuria, urinary retention, flank pain. MUSCULOSKELETAL: Denies weakness, joint pain, or bony pain SKIN: No rash, no erythema, no pruritus NEUROLOGIC: Denies weakness, dizziness, headache, numbness, change in speech, confusion PSYCHIATRIC: No concerning psychosocial issues. 12 point review of systems is negative except for those stated above and HPI Patient History Medical History Adenocarcinoma of right lung, stage 4 Adrenal insufficiency BPH w urinary obs/LUTS COVID-19 Diabetes History of colonic polyps Hypertension Port-A-Cath in place Tobacco consumption Surgical History H/O hand surgery (~2013) H/O shoulder surgery (~1997) History of lung surgery History of vascular access device Family History Father Prostate cancer Social History household members: spouse Smoking Status: Former smoker alcohol intake: current substance use type: does not use Smoking Status: Former smoker alcohol intake frequency: 3 or more drinks per day Substance Use Type: does not use Exam Initial Vital Signs Initial Vital Signs: Vital Signs Temperature 99.1 F 07/18/21 11:53 Pulse Rate 125 H 07/18/21 11:53 Respiratory Rate 21 07/18/21 11:53 Blood Pressure 127/79 07/18/21 11:53 Pulse Oximetry 96 07/18/21 11:53 GENERAL: Patient 66-year-old male appears uncomfortable moaning HEENT: Head atraumatic,EOMI, pupils reactive, face symmetric, [moist] mucous membranes CARDIOVASCULAR: Regular rate and rhythm without murmurs, rubs or gallops. RESPIRATORY: Breath sounds equal bilaterally, no wheezes rales or rhonchi. ABDOMEN: Soft, nontender. Normoactive bowel sounds all 4 quadrants. No guarding or rebound. EXTREMITIES: Normal range of motion, no clubbing or edema. Neurovascularly intact NEUROLOGICAL: Able to follow simple commands SKIN: Warm, dry, no laceration, no petechiae, no rashes or lesions. Course Orders Ordered: ED Orders 07/18/21 12:08 XR chest 1V Stat EKG-12 Lead Stat 07/18/21 12:30 Complete Blood Count AUTO DIFF Stat Comprehensive Metabolic Panel Stat Lactate (Lactic Acid) Stat Lipase Stat Partial Thromboplastin Time Stat Procalcitonin Stat Prothrombin Time INR Stat Troponin & CK Cardiac Panel Stat 07/18/21 12:38 Blood Culture Stat 07/18/21 13:50 CT chest abd pel w con Stat 07/18/21 16:25 Ictotest Urine Stat Urine Culture Stat Urine Microscopic Stat 07/18/21 18:47 Lactate (Lactic Acid) Stat Acetaminophen (Acetaminophen 325 Mg Tablet) 650 mg PO Q6HR PRN PRN Reason: paoin Aspirin (Aspirin 81 Mg Chew Tab) 81 mg PO DAILY CINDI Enoxaparin Sodium (Enoxaparin 40 Mg/0.4 Ml Syringe) 40 mg SUBCUT DAILY CINDI Hydrocortisone (Hydrocortisone 100 Mg/2 Ml Vial) 50 mg IV Q6HR CINDI Lactated Ringer's (Lactated Ringers) 2,993.7 mls @ 997.9 mls/hr 30 ml/kg infuse over 3 hr (2993.7 ml) IV NOW ONE Stop: 07/18/21 21:25 Last Admin: 07/18/21 18:34 Dose: 997.9 mls/hr Documented by: JAVID Lactated Ringer's (Lactated Ringers) 1,000 mls @ 150 mls/hr IV CONT CINDI Ceftriaxone Sodium 1,000 mg/ (Sodium Chloride) 100 mls @ 200 mls/hr IV Q24H CINDI Ondansetron HCl (Ondansetron 4 Mg/2 Ml Inj) 4 mg IV Q4HR PRN PRN Reason: Nausea And Vomiting Discontinued Medications Acetaminophen (Acetaminophen 325 Mg Tablet) 975 mg PO NOW ONE Stop: 07/18/21 18:53 Last Admin: 07/18/21 19:05 Dose: 975 mg Documented by: HANS Hydrocortisone (Hydrocortisone 100 Mg/2 Ml Vial) 100 mg IV NOW ONE Stop: 07/18/21 19:07 Last Admin: 07/18/21 19:20 Dose: 100 mg Documented by: DBROYLE Sodium Chloride (Normal Saline 0.9%) 1,000 mls @ 1,000 mls/hr IV BOLUS ONE Stop: 07/18/21 13:07 Last Infusion: 07/18/21 16:18 Dose: 0 mls/hr Documented by: NRBERNADETTEADS Admin: 07/18/21 12:31 Dose: 1,000 mls/hr Documented by: [email or web address] Sodium Chloride (Normal Saline 0.9%) 1,000 mls @ 1,000 mls/hr IV BOLUS ONE Stop: 07/18/21 14:44 Last Infusion: 07/18/21 18:28 Dose: 0 mls/hr Documented by: Admin: 07/18/21 16:40 Dose: 1,000 mls/hr Documented by: JAVID Ceftriaxone Sodium 1,000 mg/ (Sodium Chloride) 100 mls @ 200 mls/hr IV NOW ONE Stop: 07/18/21 15:33 Last Infusion: 07/18/21 18:29 Dose: 0 mls/hr Documented by: Admin: 07/18/21 16:14 Dose: 200 mls/hr Documented by: JAVID Ketorolac Tromethamine (Ketorolac 30 Mg/Ml Vial) 15 mg IV NOW ONE Stop: 07/18/21 13:51 Last Admin: 07/18/21 14:02 Dose: 15 mg Documented by: NAY Vital Signs Vital signs: Vital Signs - 8 hr 07/18/21 12:28 07/18/21 12:30 07/18/21 13:00 Temperature Pulse Rate 124 H 124 H 124 H Respiratory Rate 16 20 21 Blood Pressure 137/83 141/81 H 132/60 Pulse Oximetry 97 97 100 07/18/21 13:30 07/18/21 14:00 07/18/21 14:24 Temperature Pulse Rate 121 H 126 H 126 H Respiratory Rate 23 24 19 Blood Pressure 112/62 Pulse Oximetry 99 97 95 07/18/21 14:30 07/18/21 16:07 07/18/21 16:25 Temperature Pulse Rate 133 H 114 H 114 H Respiratory Rate 20 19 Blood Pressure 117/56 L 124/57 L Pulse Oximetry 94 96 98 07/18/21 16:30 07/18/21 17:00 07/18/21 17:30 Temperature Pulse Rate 118 H 118 H 120 H Respiratory Rate 22 21 24 Blood Pressure Pulse Oximetry 97 99 98 07/18/21 18:00 07/18/21 18:04 07/18/21 18:24 Temperature Pulse Rate 118 H 116 H 117 H Respiratory Rate 23 26 H 23 Blood Pressure 103/59 L 98/70 Pulse Oximetry 98 98 98 07/18/21 18:26 07/18/21 18:30 Temperature 100.7 F H Pulse Rate 118 H 119 H Respiratory Rate 25 H Blood Pressure 98/70 96/53 L Pulse Oximetry 98 98 MDM - Arrhythmia/Palpitations Lab Data Result diagrams: 07/18/21 12:30 07/18/21 12:30 Labs: Lab Results 07/18/21 07/18/21 07/18/21 Range/Units 12:30 12:30 12:30 WBC 6.1 (4.5-11.0) X10^3/uL RBC 4.77 (4.5-5.9) X10^6/uL Hgb 15.2 (13.5-17.5) g/dL Hct 44.1 (41-53) % MCV 92.3 (80-100) fL MCH 31.9 (26-34) PG MCHC 34.6 (30-36) % RDW 14.2 (11.6-14.8) % Plt Count 206 (150-400) X10^3/uL Neut % (Auto) 78.1 H (50-75) % Lymph % (Auto) 13.5 L (25-40) % [place] % (Auto) 6.8 (3-14) % Eos % (Auto) 1.2 L (2-4) % Baso % (Auto) 0.4 (0-2) % Neut # (Auto) 4800 (2080-7170) /uL Lymph # (Auto) 800 L (7937-7361) /uL [place] # (Auto) 400 (0-900) /uL Eos # (Auto) 100 (0-450) /uL Baso # (Auto) 0 (0-100) /uL PT 12.3 (10.1-12.7) SECONDS INR 1.1 (0.9-1.3) APTT 29 D (26.4-36.2) SECONDS Sodium 139 (137-145) mmol/L Potassium 4.0 (3.4-5.1) mmol/L Chloride 99 (98-107) mmol/L Carbon Dioxide 30 (22-32) mmol/L BUN 22 H (9-20) mg/dL Creatinine 1.43 H (0.66-1.25) mg/dL Estimated GFR 54 L (>60) mL/min BUN/Creatinine Ratio 15.4 (6-22) Glucose 146 H (80-110) mg/dL Lactate (0.7-2.1) mmol/L Calcium 9.2 (8.4-10.2) mg/dL Total Bilirubin 0.8 (0.2-1.3) mg/dL AST 39 (17-59) IU/L ALT 53 H (<50) IU/L Alkaline Phosphatase 69 (38-126) U/L Total Creatine Kinase (55-170) U/L CK-MB (CK-2) CK-MB (CK-2) Rel Index Troponin I (0.01-0.034) ng/mL Total Protein 8.5 H (6.3-8.2) g/dL Albumin 4.8 (3.5-5.0) g/dL Globulin 3.7 (1.7-4.1) g/dL Albumin/Globulin Ratio 1.3 (1.0-2.8) Lipase 63 (23-300) U/L Procalcitonin 0.65 H (<0.5) ng/mL Ur Bilirubin Confirm (Negative) Urine RBC (0-5/HPF) Urine WBC (0-5/HPF) Ur Squamous Epith Cells (0-5/HPF) Urine Bacteria (None) Ur Culture Indicated? 07/18/21 07/18/21 07/18/21 Range/Units 12:30 12:30 16:25 WBC (4.5-11.0) X10^3/uL RBC (4.5-5.9) X10^6/uL Hgb (13.5-17.5) g/dL Hct (41-53) % MCV (80-100) fL MCH (26-34) PG MCHC (30-36) % RDW (11.6-14.8) % Plt Count (150-400) X10^3/uL Neut % (Auto) (50-75) % Lymph % (Auto) (25-40) % [place] % (Auto) (3-14) % Eos % (Auto) (2-4) % Baso % (Auto) (0-2) % Neut # (Auto) (0731-0966) /uL Lymph # (Auto) (6205-4458) /uL [place] # (Auto) (0-900) /uL Eos # (Auto) (0-450) /uL Baso # (Auto) (0-100) /uL PT (10.1-12.7) SECONDS INR (0.9-1.3) APTT (26.4-36.2) SECONDS Sodium (137-145) mmol/L Potassium (3.4-5.1) mmol/L Chloride (98-107) mmol/L Carbon Dioxide (22-32) mmol/L BUN (9-20) mg/dL Creatinine (0.66-1.25) mg/dL Estimated GFR (>60) mL/min BUN/Creatinine Ratio (6-22) Glucose (80-110) mg/dL Lactate 2.0 (0.7-2.1) mmol/L Calcium (8.4-10.2) mg/dL Total Bilirubin (0.2-1.3) mg/dL AST (17-59) IU/L ALT (<50) IU/L Alkaline Phosphatase (38-126) U/L Total Creatine Kinase 25 L (55-170) U/L CK-MB (CK-2) TNP CK-MB (CK-2) Rel Index TNP Troponin I < 0.012 (0.01-0.034) ng/mL Total Protein (6.3-8.2) g/dL Albumin (3.5-5.0) g/dL Globulin (1.7-4.1) g/dL Albumin/Globulin Ratio (1.0-2.8) Lipase (23-300) U/L Procalcitonin (<0.5) ng/mL Ur Bilirubin Confirm (Negative) Urine RBC 0-1/hpf (0-5/HPF) Urine WBC 5-10/hpf H (0-5/HPF) Ur Squamous Epith Cells None seen (0-5/HPF) Urine Bacteria Occasional (0-1) (None) Ur Culture Indicated? Specimen cultured 07/18/21 07/18/21 Range/Units 16:25 18:47 WBC (4.5-11.0) X10^3/uL RBC (4.5-5.9) X10^6/uL Hgb (13.5-17.5) g/dL Hct (41-53) % MCV (80-100) fL MCH (26-34) PG MCHC (30-36) % RDW (11.6-14.8) % Plt Count (150-400) X10^3/uL Neut % (Auto) (50-75) % Lymph % (Auto) (25-40) % [place] % (Auto) (3-14) % Eos % (Auto) (2-4) % Baso % (Auto) (0-2) % Neut # (Auto) (5069-2906) /uL Lymph # (Auto) (1533-2233) /uL [place] # (Auto) (0-900) /uL Eos # (Auto) (0-450) /uL Baso # (Auto) (0-100) /uL PT (10.1-12.7) SECONDS INR (0.9-1.3) APTT (26.4-36.2) SECONDS Sodium (137-145) mmol/L Potassium (3.4-5.1) mmol/L Chloride (98-107) mmol/L Carbon Dioxide (22-32) mmol/L BUN (9-20) mg/dL Creatinine (0.66-1.25) mg/dL Estimated GFR (>60) mL/min BUN/Creatinine Ratio (6-22) Glucose (80-110) mg/dL Lactate 1.8 (0.7-2.1) mmol/L Calcium (8.4-10.2) mg/dL Total Bilirubin (0.2-1.3) mg/dL AST (17-59) IU/L ALT (<50) IU/L Alkaline Phosphatase (38-126) U/L Total Creatine Kinase (55-170) U/L CK-MB (CK-2) CK-MB (CK-2) Rel Index Troponin I (0.01-0.034) ng/mL Total Protein (6.3-8.2) g/dL Albumin (3.5-5.0) g/dL Globulin (1.7-4.1) g/dL Albumin/Globulin Ratio (1.0-2.8) Lipase (23-300) U/L Procalcitonin (<0.5) ng/mL Ur Bilirubin Confirm Negative (Negative) Urine RBC (0-5/HPF) Urine WBC (0-5/HPF) Ur Squamous Epith Cells (0-5/HPF) Urine Bacteria (None) Ur Culture Indicated? Urine Dip Bedside Urine Glucose Negative Bedside Urine Bilirubin + 1 Bedside Urine Ketone - Negative Urine Specific [place] 1.005 Bedside Urine Occult Blood - Negative Bedside Urine pH 5.5 Bedside Urine Protein + 30 Bedside Urine Urobilinogen - Negative Bedside Urine Nitrite - Negative Bedside Urine Leukocytes - Negative Esterase MDM Narrative Medical decision making narrative: That he feels well symptoms consistent with fever although he has not yet febrile. Blood work is overall reassuring as a mild elevation in procalcitonin but normal lactate normal leukocytosis. He is really unable to give much history so CT chest abdomen pelvis was done. Chest x-ray showe pleural thickening . Head CT showed a possible transient or early ileus. Patient actually had a large bowel movement of diarrhea while in the emergency department states that his abdomen is much better. He continues to have rigors, and remains tachycardic despite IV fluid. While in the emergency department his blood pressure started decreasing. Septic fluid orders have been started he had already been given 1 dose of Rocephin. It is unclear where his source of infection is. Urinalysis is negative CT also negative. Possible early viral infection. This is unlikely to be meningitis really does not have headache or neck pain in fact he has been curled up in position for most of his time in the emergency department. Concern for worsening infection with persistent tachycardia and hypotension. Dr. Miguel has been updated patient's symptoms test results and happily accepts patient to the ICU. Discharge Plan Departure Patient Disposition: Admitted As Inpatient Clinical Impression: Acute viral syndrome Admit Date/Time: 07/18/21 18:47 Admit Provider: Jones Miguel
--- NOTE | 2021-07-18 13:50 | DI.CT.S_ITS ---
PROCEDURE: CT CHEST ABD PEL W CON INDICATIONS: fever vomiting recent covid TECHNIQUE: After the administration of intravenous contrast, 5 mm thick sections acquired from the lung apices to the symphysis. 5 mm coronal and sagittal reformats were performed, with additional 7 mm MIP reformats through the lungs. For radiation dose reduction, the following was used: automated exposure control, adjustment of mA and/or kV according to patient size. COMPARISON: [facility], CT, CT CHEST ABDOMEN W CON, 09/30/2019, 9:42. [facility], CT, CT CHEST ABD PEL W CON, 02/27/2021, 13:42. FINDINGS: Image quality: Excellent. CHEST: Lungs and pleura: Pleural thickening at the right lung base is unchanged from the study dated September 30, 2019. No acute airspace opacities. Mediastinum: Heart size is normal. No pericardial effusion. No mediastinal or hilar adenopathy by size criteria. Thoracic aorta and central pulmonary arteries are normal in size. Esophagus is normal in caliber. No hiatal hernia. Chest wall: No axillary or supraclavicular adenopathy by size criteria. Thyroid gland is unremarkable . ABDOMEN: Solid organs: Liver is diffusely hypodense suggesting fatty infiltration. Gallbladder is unremarkable . Biliary system is non dilated. Pancreas enhances normally. Spleen is normal in size and enhancement. No adrenal nodules. Kidneys demonstrate normal size and enhancement, without hydronephrosis. Peritoneum and bowel: The stomach is partially fluid filled. The proximal small bowel demonstrates normal caliber and wall thickness. There are multiple moderately dilated loops of bowel within the midportion of the small bowel. No wall thickening or perienteric fat stranding. There is tapered narrowing at the distal aspect of the dilated small bowel. The distal small bowel is decompressed. The proximal and mid portions of the colon are decompressed and demonstrate normal caliber and wall thickness. Liquid stool fills the distal colon. No free fluid. No pneumoperitoneum. The appendix is thin walled. Nodes and vessels: No retroperitoneal or mesenteric adenopathy by size criteria. Aorta and inferior vena cava are normal in size. There are scattered atheromatous calcifications throughout the aorta and iliac arteries bilaterally. Miscellaneous: No ventral hernias. PELVIS: Genitourinary: Bladder wall thickness is normal. Miscellaneous: No inguinal hernias or adenopathy. Bones: No suspicious bony lesions. No vertebral body compression fractures. IMPRESSION: 1. Unchanged pleural thickening when compared with prior studies likely associated with radiation change. 2. Dilated loops of small bowel within the mid abdomen. There is no clear transition point and the proximal and distal small bowel is decompressed. Findings may be associated with transient or early ileus. No definite findings to suggest obstruction. 3. Normal appendix. Dictated by: Priscilla Baez M.D. on 07/18/2021 at 14:34 Approved by: Priscilla Baez M.D. on 07/18/2021 at 14:42
[2021-07-18] MEDS: KETOROLAC 30 MG/ML VIAL 15 MG IV (14:02)
[2021-07-18 14:05] LABS: Creatine Kinase 25 U/L (55-170)
[2021-07-18 14:19] LABS: Troponin I < 0.012 ng/mL (0.01-0.034)
[2021-07-18] MEDS: cefTRIAXone 1,000 MG in SODIUM CHLORIDE 0.9% 100 ML 200 ML IV (16:14)
[2021-07-18 17:21] LABS: Ictotest Urine Negative (Negative)
[2021-07-18 17:24] LABS: RBC Urine 0-1/HPF (0-5/HPF); Squamous Epithelial Cell Urine None Seen (0-5/HPF); WBC Urine 5-10/HPF (0-5/HPF)
[2021-07-18 17:26] LABS: Bacteria Urine Occasional (0-1); Culture Indicated Urine Specimen Cultured
[2021-07-18] MEDS: LACTATED RINGERS 2,993.7 ML 997.9 ML IV (18:34)
[2021-07-18] MEDS: ACETAMINOPHEN 325 MG TABLET 975 MG PO (19:05)
[2021-07-18 19:19] LABS: Lactate (Lactic Acid) 1.8 mmol/L (0.7-2.1)
[2021-07-18] MEDS: HYDROCORTISONE 100 MG/2 ML VIAL IV (19:20)
[2021-07-18 19:55] LABS: COVID19 -Nasal RAPID POSITIVE (Negative)
[2021-07-18 21:49] LABS: Adenovirus Not Detected (Not Detect)
[2021-07-18 21:51] LABS: B. parapertussis Not Detected (Not Detecte); Bordetella pertussis Not Detected (Not Detecte); Chlamydophila pneumoniae Not Detected (Not Detect); Coronavirus 229E Not Detected (Not Detect); Coronavirus HKU1 Not Detected (Not Detect); Coronavirus NL 63 Not Detected (Not Detect); Coronavirus OC43 Not Detected (Not Detect); Human Metapneumovirus Not Detected (Not Detect); Human Rhinovirus/Enterovirus Not Detected (Not Detect); Influenza A Not Detected (Not Detect); Influenza B Not Detected (Not Detect); Mycoplasma pneumoniae Not Detected (Not Detect); Parainfluenza Virus 1 Not Detected (Not Detect); Parainfluenza Virus 2 Not Detected (Not Detect); Parainfluenza Virus 3 Not Detected (Not Detect); Parainfluenza Virus 4 Not Detected (Not Detect); Respiratory Syncytial Virus Not Detected (Not Detect); SARS- CoV-2 Detected (Not Detecte)
--- NOTE | 2021-07-18 22:07 | PC.NURSE ---
Patients blood glucose upon admission was 106 @ 2009. RN notified
--- NOTE | 2021-07-18 22:15 | PC.NURSE ---
Addendum entered by Rukhsana Fraire R.N. 07/19/21 06:08: 0600- Patient has rested well since midnight. No further liquid stool. IVF infused per order. Afebrile this am and now is NSR. No complaints of pain or chills. Remains on Room Air. Will monitor. Original Note: 1999- Admit to room 231. Covid positive, with fever and chills. Sinus tachycardia. Frequent liquid stool, specimen sent for culture. Lungs are clear/Dim right greater than left. History of Lung CA right lung. Saturations on room air 94%. No nausea or vomiting since arrival but patient states he woke this am with nausea and vomiting. Influenza A/B PCR sent per MD order. Will monitor.
[2021-07-18] MEDS: HYDROCORTISONE 100 MG/2 ML VIAL 50 MG IV (23:18)
[2021-07-18] MEDS: LACTATED RINGERS 1,000 ML 150 ML IV (23:27)
[2021-07-19 03:17] VITALS: BP 119/71; PULSE 82; RESP 15; TEMP 36.4; O2SAT 99
[2021-07-19] MEDS: HYDROCORTISONE 100 MG/2 ML VIAL 50 MG IV ×2 (05:53→12:40)
[2021-07-19 06:04] VITALS: TEMP 36.8
--- NOTE | 2021-07-19 07:23 | P.HP_ITS ---
History of Present Illness History of Present Illness Date Patient Seen: 07/19/21 Time Patient Seen: 07:23 Chief complaint: Everything hurts, post covid, low bp, high hr Narrative: 66-year-old male recently admitted to the hospital with COVID-19 and evidence of pneumonia although not hypoxic. He also has underlying stage IV adenocarcinoma the right lung status post treatment now on surveillance only. He was scheduled to see me in the office on the 18 of July for follow-up of his hospitalization for COVID. He presented tachycardic hypotensive complaining of aching all over with significant nausea and vomiting. He may have also been somewhat disoriented and confused. I sent him to the emergency department for evaluation and treatment Emergency department he was found to be tachycardic with sinus tachycardia but fortunately relatively normal labs, except slight bump in creatinine, and 1 of his transaminases Procalcitonin was barely abnormal and lactate was normal. CT showed resolution of previously seen changes consistent with COVID pneumonia and otherwise essentially no change in his lung cancer. CT of abdomen and pelvis was equally unremarkable although evidence of ileus was present on his abdominal CT. Urinalysis unremarkable he had no symptoms to suggest meningitis etcetera in fact was curled up in semi- position much of the time He was treated with fluid resuscitation which improved his blood pressure and lower his heart rate. Elected to admit him to the hospital for further management he was placed on broad-spectrum IV antibiotics given the minimally abnormal procalcitonin and his history Of note he was not hypoxic, and only minimally hyperglycemic (has a history of diabetes) He did still test positive for SARS-CoV-2 but the remainder of his PCR panel for infection was negative for any other detectable viral infection Patient History Medical History Adenocarcinoma of right lung, stage 4 Adrenal insufficiency BPH w urinary obs/LUTS COVID-19 Diabetes History of colonic polyps Hypertension Port-A-Cath in place Tobacco consumption Surgical History H/O hand surgery (~2013) H/O shoulder surgery (~1997) History of lung surgery History of vascular access device Family & Social History Family History Father Prostate cancer Social History: household members spouse Prior Living Arrangements House Safety & Behavioral: Feels Safe in Current Yes Environment Been Physically Hurt or No Threatened By a Person Tobacco & Substance use: Tobacco type cigarettes Smoking Status Former smoker alcohol intake current alcohol intake frequency 3 or more drinks per day Substance Use Type does not use Meds Home Medications and Allergies Home Medications Medication Instructions Recorded Confirmed Type aspirin 81 mg chewable tablet 81 mg PO DAILY 02/07/20 07/18/21 History losartan 25 mg tablet 25 mg PO DAILY #90 tab 12/25/20 07/18/21 Rx prednisone 20 mg tablet 20 - 30 mg PO DAILY #20 tab 07/19/21 Rx prednisone 5 mg tablet 5 - 10 mg PO DAILY #90 tab 07/19/21 07/18/21 Rx Allergies Allergy/AdvReac Type Severity Reaction Status Date / Time bee venom protein (honey bee) Allergy Intermediate Hives Verified 07/18/21 12:09 Penicillins Allergy Intermediate Hives Verified 07/18/21 12:09 hydrocodone Allergy ITCHING Verified 07/18/21 12:09 Review of Systems Review of Systems ROS: Yes All systems reviewed with the patient and are negative except as otherwise documented Exam Vital Signs (past 8 hours): - 07/18/21 23:26 07/19/21 03:17 07/19/21 06:04 Temperature 98.4 F 97.6 F 98.3 F Pulse Rate 82 Respiratory Rate 15 Blood Pressure 119/71 Pulse Oximetry 99 Oxygen Delivery Method Room Air Oxygen Flow Rate 0 Narrative Exam Narrative: Middle-aged male in no obvious distress looks much better than he did when I saw him in the clinic yesterday HEENT-unremarkable, normocephalic atraumatic Neck-no lymphadenopathy no bruits Lungs-clear anteriorly and posteriorly no wheezes no crackles good breath sounds Heart-regular rate and rhythm, no murmur, rub, or gallop. normal S1-S2 Abdomen-positive bowel tones, soft, nontender, nondistended, no hepatospleno megaly, no masses palpable Neuro-normal to screening exam, gait not tested Extremities-no cyanosis clubbing or edema Objective Labs Result Diagrams: 07/19/21 07:35 07/19/21 07:35 Labs: Laboratory Results - last 24 hr 07/18/21 07/18/21 07/18/21 12:30 12:30 12:30 WBC 6.1 RBC 4.77 Hgb 15.2 Hct 44.1 MCV 92.3 MCH 31.9 MCHC 34.6 RDW 14.2 Plt Count 206 Neut % (Auto) 78.1 H Lymph % (Auto) 13.5 L [place] % (Auto) 6.8 Eos % (Auto) 1.2 L Baso % (Auto) 0.4 Neut # (Auto) 4800 Lymph # (Auto) 800 L [place] # (Auto) 400 Eos # (Auto) 100 Baso # (Auto) 0 PT 12.3 INR 1.1 APTT 29 D Sodium 139 Potassium 4.0 Chloride 99 Carbon Dioxide 30 BUN 22 H Creatinine 1.43 H Estimated GFR 54 L BUN/Creatinine Ratio 15.4 Glucose 146 H Lactate Calcium 9.2 Total Bilirubin 0.8 AST 39 ALT 53 H Alkaline Phosphatase 69 Total Creatine Kinase CK-MB (CK-2) CK-MB (CK-2) Rel Index Troponin I Total Protein 8.5 H Albumin 4.8 Globulin 3.7 Albumin/Globulin Ratio 1.3 Lipase 63 Procalcitonin 0.65 H Ur Bilirubin Confirm Urine RBC Urine WBC Ur Squamous Epith Cells Urine Bacteria Ur Culture Indicated? Chlamy pneumoniae PCR Adenovirus (PCR) B. pertussis DNA (PCR) B.parapertussis DNA PCR Coronavirus OC43 (PCR) Coronavirus HKU1 (PCR) Coronavirus 229E (PCR) SARS-CoV-2 (PCR) Coronavirus NL63 (PCR) Human Metapneumovir PCR Influenza Type A (PCR) Influenza Type B (PCR) M. pneumoniae (PCR) Parainfluenza 1 (PCR) Parainfluenza 2 (PCR) Parainfluenza 3 (PCR) Parainfluenza 4 (PCR) RSV (PCR) Entero/Rhino (PCR) 07/18/21 07/18/21 07/18/21 12:30 12:30 16:25 WBC RBC Hgb Hct MCV MCH MCHC RDW Plt Count Neut % (Auto) Lymph % (Auto) [place] % (Auto) Eos % (Auto) Baso % (Auto) Neut # (Auto) Lymph # (Auto) [place] # (Auto) Eos # (Auto) Baso # (Auto) PT INR APTT Sodium Potassium Chloride Carbon Dioxide BUN Creatinine Estimated GFR BUN/Creatinine Ratio Glucose Lactate 2.0 Calcium Total Bilirubin AST ALT Alkaline Phosphatase Total Creatine Kinase 25 L CK-MB (CK-2) TNP CK-MB (CK-2) Rel Index TNP Troponin I < 0.012 Total Protein Albumin Globulin Albumin/Globulin Ratio Lipase Procalcitonin Ur Bilirubin Confirm Urine RBC 0-1/hpf Urine WBC 5-10/hpf H Ur Squamous Epith Cells None seen Urine Bacteria Occasional (0-1) Ur Culture Indicated? Specimen cultured Chlamy pneumoniae PCR Adenovirus (PCR) B. pertussis DNA (PCR) B.parapertussis DNA PCR Coronavirus OC43 (PCR) Coronavirus HKU1 (PCR) Coronavirus 229E (PCR) SARS-CoV-2 (PCR) Coronavirus NL63 (PCR) Human Metapneumovir PCR Influenza Type A (PCR) Influenza Type B (PCR) M. pneumoniae (PCR) Parainfluenza 1 (PCR) Parainfluenza 2 (PCR) Parainfluenza 3 (PCR) Parainfluenza 4 (PCR) RSV (PCR) Entero/Rhino (PCR) 07/18/21 07/18/21 07/18/21 16:25 18:47 19:09 WBC RBC Hgb Hct MCV MCH MCHC RDW Plt Count Neut % (Auto) Lymph % (Auto) [place] % (Auto) Eos % (Auto) Baso % (Auto) Neut # (Auto) Lymph # (Auto) [place] # (Auto) Eos # (Auto) Baso # (Auto) PT INR APTT Sodium Potassium Chloride Carbon Dioxide BUN Creatinine Estimated GFR BUN/Creatinine Ratio Glucose Lactate 1.8 Calcium Total Bilirubin AST ALT Alkaline Phosphatase Total Creatine Kinase CK-MB (CK-2) CK-MB (CK-2) Rel Index Troponin I Total Protein Albumin Globulin Albumin/Globulin Ratio Lipase Procalcitonin Ur Bilirubin Confirm Negative Urine RBC Urine WBC Ur Squamous Epith Cells Urine Bacteria Ur Culture Indicated? Chlamy pneumoniae PCR Adenovirus (PCR) B. pertussis DNA (PCR) B.parapertussis DNA PCR Coronavirus OC43 (PCR) Coronavirus HKU1 (PCR) Coronavirus 229E (PCR) SARS-CoV-2 (PCR) Positive H Coronavirus NL63 (PCR) Human Metapneumovir PCR Influenza Type A (PCR) Influenza Type B (PCR) M. pneumoniae (PCR) Parainfluenza 1 (PCR) Parainfluenza 2 (PCR) Parainfluenza 3 (PCR) Parainfluenza 4 (PCR) RSV (PCR) Entero/Rhino (PCR) 07/18/21 20:45 WBC RBC Hgb Hct MCV MCH MCHC RDW Plt Count Neut % (Auto) Lymph % (Auto) [place] % (Auto) Eos % (Auto) Baso % (Auto) Neut # (Auto) Lymph # (Auto) [place] # (Auto) Eos # (Auto) Baso # (Auto) PT INR APTT Sodium Potassium Chloride Carbon Dioxide BUN Creatinine Estimated GFR BUN/Creatinine Ratio Glucose Lactate Calcium Total Bilirubin AST ALT Alkaline Phosphatase Total Creatine Kinase CK-MB (CK-2) CK-MB (CK-2) Rel Index Troponin I Total Protein Albumin Globulin Albumin/Globulin Ratio Lipase Procalcitonin Ur Bilirubin Confirm Urine RBC Urine WBC Ur Squamous Epith Cells Urine Bacteria Ur Culture Indicated? Chlamy pneumoniae PCR Not detected Adenovirus (PCR) Not detected B. pertussis DNA (PCR) Not detected B.parapertussis DNA PCR Not detected Coronavirus OC43 (PCR) Not detected Coronavirus HKU1 (PCR) Not detected Coronavirus 229E (PCR) Not detected SARS-CoV-2 (PCR) Detected H Coronavirus NL63 (PCR) Not detected Human Metapneumovir PCR Not detected Influenza Type A (PCR) Not detected Influenza Type B (PCR) Not detected M. pneumoniae (PCR) Not detected Parainfluenza 1 (PCR) Not detected Parainfluenza 2 (PCR) Not detected Parainfluenza 3 (PCR) Not detected Parainfluenza 4 (PCR) Not detected RSV (PCR) Not detected Entero/Rhino (PCR) Not detected Assessment & Plan Assessment & Plan narrative: 1. Sepsis-patient with evidence of sepsis based on hypotension tachycardia, tachypnea etcetera. This did seem to improve significantly with fluid resuscitation. No source of infection has been identified. Patient has been placed on broad-spectrum IV antibiotics in the form of third generation cephalosporin. Continue with current therapies and monitor clinically for evidence of emerging infection etcetera 2. Adrenal insufficiency-patient is felt to have an element of adrenal insufficiency after treatment for his lung cancer. He is chronically on prednisone. His presentation in part could be secondary to an acute adrenal crisis. He has been given stress dosed parental steroids I would continue that for now as well. He did drop his prednisone dose from 10 down to 5 mg sometime within 48 hours of his presentation. 3. [id number] still testing positive for COVID but does show resolution of his pneumonia on CT imaging compared to previous imaging. I do not believe he has an active infectious COVID infection at this time. I am not aware that this particular presentation is a known phenomenon of ?subacute COVID ? 4. Diabetes-patient will be on a carb consistent diet with insulin as coverage and checking blood sugars as appropriate 5. VTE prophylaxis-patient would be appropriate for Lovenox 6. Code status-patient has before requests full code in event of a sudden cardiac or respiratory arrest which is not at this time anticipated by any means 7. Lung cancer-patient does not show evidence of progression of his lung cancer based on CT imaging. Do not believe that is playing a role at this time. He is not hypoxic and has no other respiratory symptoms. 8. Acute kidney injury-likely secondary to either adrenal insufficiency or sepsis. Clinically he has improved after fluid resuscitation and we will plan to repeat creatinine BUN this morning to verify that is improved as well COVID-19 COVID-19 status: Positive Result date/Date tested (Pos, Neg/Pending): 07/18/21 Quality VTE Deep Vein Thrombosis/Pulmonary Embolism Present on Admission: No
[2021-07-19] MEDS: INSULIN LISPRO 100 UNIT/ML 3ML VIAL SUBCUT ×2 (07:43→11:50)
[2021-07-19 07:55] LABS: Add Manual Diff / Slide Review NO; Basophils Absolute Auto 0 /uL (0-100); Basophils Percent Auto 0.2 % (0-2); Eosinophils Absolute Auto 0 /uL (0-450); Eosinophils Percent Auto 0.2 % (2-4); Hematocrit 38.4 % (41-53); Hemoglobin 13.3 g/dL (13.5-17.5); Lymphocytes Absolute Auto 500 /uL (1100-4500); Lymphocytes Percent Auto 9.4 % (25-40); Mean Corpuscular HGB Conc 34.6 % (30-36); Mean Corpuscular Hemoglobin 31.9 PG (26-34); Mean Corpuscular Volume 92.1 fL (80-100); Monocytes Absolute Auto 400 /uL (0-900); Monocytes Percent Auto 7.9 % (3-14); Neutrophils Absolute Auto 4500 /uL (1500-7000); Neutrophils Percent Auto 82.3 % (50-75); Platelet Count 169 X10^3/uL (150-400); Red Blood Cell Count 4.17 X10^6/uL (4.5-5.9); White Blood Cell Count 5.4 X10^3/uL (4.5-11.0)
[2021-07-19 08:06] LABS: Alanine Aminotransferase 40 IU/L (<50); Albumin 3.5 g/dL (3.5-5.0); Albumin Globulin Ratio 1.2 (1.0-2.8); Alkaline Phosphatase 51 U/L (38-126); Aspartate Aminotransferase 34 IU/L (17-59); BUN Creatinine Ratio 21.1 (6-22); Bilirubin Total 0.8 mg/dL (0.2-1.3); Blood Urea Nitrogen 19 mg/dL (9-20); Calcium 8.3 mg/dL (8.4-10.2); Carbon Dioxide 26 mmol/L (22-32); Chloride 108 mmol/L (98-107); Estimated Glomerular Filt Rate > 60 mL/min (>60); Glucose 175 mg/dL (80-110); HEMOLYSIS < 15 (0-50); Potassium 4.2 mmol/L (3.4-5.1); Sodium 138 mmol/L (137-145); Total Protein 6.5 g/dL (6.3-8.2)
[2021-07-19] MEDS: ENOXAPARIN 40 MG/0.4 ML SYRINGE SUBCUT (08:21)
[2021-07-19] MEDS: ASPIRIN 81 MG CHEW TAB PO (08:21)
[2021-07-19 08:29] VITALS: BP 147/70; PULSE 96; RESP 21; TEMP 36.8; O2SAT 98
--- NOTE | 2021-07-19 11:31 | CM.DANOTE ---
DCP: Case received, EMR reviewed. Did not meet with patient in his room secondary to being COVID positive. Attempted to call patient's room, but he did not answer, and he did not answer his cell phone. Could see from room window, that patient has been ambulating independently in his room. DCP assessment completed with information currently available. Patient is a 66 year old male who admitted yesterday afternoon to the care of the hospitalist team. PCP: Dr. Flaherty. Payer: confirmed: [employer]. Patient came to the hospital via private vehicle with complaints of fever and body aches. Patient has had recent COVID infection, is still COVID positive. According to notes, patient had had emesis for approximately the last few days, and a fever of 101. Upon admission, patient had noted some confusion'. Patient was diagnosed with acute viral syndrome. Patient has history of stage 4 adenocarcinoma of right lung, as well. Patient was placed on IV ABO. Was unable to meet with patient secondary to his having COVID. Have seen interaction with staff in room. He is alert and oriented. He resides here in [place] with his spouse, Tahira. 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 P: DCP to continue to follow. Patient could potentially be discharged home today, Dr. Flaherty will be coming back over to the hospital to see patient. Darion Peraza RN/Herman Tyler. Discharge Planning/Care Management CM Discharge Assessment Start: 07/19/21 11:24 Freq: Status: Active Protocol: Document 07/19/21 11:24 (Rec: 07/19/21 11:30 [id number]) Discharge Planning Assessment Assigned Forepart Reducer Nanci Peraza RN/Cul[employer] Teacher Advance Directives? Yes Advance Directives on File Yes History Provided By Patient,Medical Record Prior Living Arrangements House Household Members spouse Type of transporation used prior to Drives own vehicle admit Independent with ADL's Yes Is patient alert and oriented? Yes Caregiver for Another No Barriers to Discharge No Discharge Plan Home Transportation Arrangement Spouse Referrals Initiated None needed Whiteboard Updated in Patient Room with No name and ext. # of Forepart Reducer Comment Patient is positive for COVID, did not enter room. Review Status In Process Next Review Type Continued Stay Review
[2021-07-19 12:02] VITALS: BP 132/68; PULSE 87; RESP 22; TEMP 37.2; O2SAT 95
[2021-07-19] MEDS: cefTRIAXone 1,000 MG in SODIUM CHLORIDE 0.9% 100 ML 200 ML IV (15:58)
[2021-07-19 16:00] VITALS: BP 132/83; PULSE 95; RESP 21; TEMP 37; O2SAT 97
--- NOTE | 2021-07-19 16:38 | P.DS_ITS ---
History of Present Illness History of Present Illness Date Patient Seen: 07/19/21 Time Patient Seen: 16:39 Chief complaint: Everything hurts, post covid, low bp, high hr Narrative: 66-year-old male recently admitted to the hospital with COVID-19 and evidence of pneumonia although not hypoxic. He also has underlying stage IV adenocarcinoma the right lung status post treatment now on surveillance only. He was scheduled to see me in the office on the 18 of July for follow-up of his hospitalization for COVID. He presented tachycardic hypotensive complaining of aching all over with significant nausea and vomiting. He may have also been somewhat disoriented and confused. I sent him to the emergency department for evaluation and treatment Emergency department he was found to be tachycardic with sinus tachycardia but fortunately relatively normal labs, except slight bump in creatinine, and 1 of his transaminases Procalcitonin was barely abnormal and lactate was normal. CT showed resolution of previously seen changes consistent with COVID pneumonia and otherwise essentially no change in his lung cancer. CT of abdomen and pelvis was equally unremarkable although evidence of ileus was present on his abdominal CT. Urinalysis unremarkable he had no symptoms to suggest meningitis etcetera in fact was curled up in semi- position much of the time He was treated with fluid resuscitation which improved his blood pressure and lower his heart rate. Elected to admit him to the hospital for further management he was placed on broad-spectrum IV antibiotics given the minimally abnormal procalcitonin and his history Of note he was not hypoxic, and only minimally hyperglycemic (has a history of diabetes) He did still test positive for SARS-CoV-2 but the remainder of his PCR panel for infection was negative for any other detectable viral infection Discharge Providers Provider Date of admission: 07/18/21 18:47 Discharge Date: 07/19/21 Primary care physician: Tulio Flaherty MD Discharge provider: Tulio Flaherty MD Summary Hospital Course Discharge Diagnosis: 1. Adrenal insufficiency with acute adrenal crisis 2. History of COVID-19 infection, subacute 3. Stage IV adenocarcinoma of the right lung 4. Type 2 diabetes 5. Hypertension 6. BPH with LUTS 7. Acute kidney injury, resolved Hospital Course: Patient was admitted as above. Had rather remarkable improvement in vital signs symptoms etcetera after admission to the hospital and workup and evaluation and treatment by the emergency department Cultures remain negative. He remained afebrile. Vital signs remained stable. Renal function improved on repeat testing. In the and I believe patient likely had the acute adrenal crisis prompted by reduction in dose of his prednisone at home about 36 hours prior to onset of symptoms. He resolved rapidly as would be expected and had very prominent symptoms all consistent with same. There is no evidence of infectious etiology except for the borderline abnormal procalcitonin. Therefore he will be discharged home to continue on higher dose prednisone for a bit longer time than he was previously and with more intensive outpatient follow-up etcetera Status at Discharge Cognitive/behavioral status at discharge: oriented Functional status at discharge: independent ambulation Overall status at discharge: patient is back to baseline Exam Vital Signs (past 8 hours): - 07/19/21 12:02 Temperature 98.9 F Pulse Rate 87 Respiratory Rate 22 Blood Pressure 132/68 Pulse Oximetry 95 Oxygen Delivery Method Room Air Oxygen Flow Rate 0 Objective Labs Result Diagrams: 07/19/21 07:35 07/19/21 07:35 Labs: Laboratory Results - last 24 hr 07/18/21 07/18/21 07/18/21 16:25 16:25 18:47 WBC RBC Hgb Hct MCV MCH MCHC RDW Plt Count Neut % (Auto) Lymph % (Auto) [place] % (Auto) Eos % (Auto) Baso % (Auto) Neut # (Auto) Lymph # (Auto) [place] # (Auto) Eos # (Auto) Baso # (Auto) Sodium Potassium Chloride Carbon Dioxide BUN Creatinine Estimated GFR BUN/Creatinine Ratio Glucose Lactate 1.8 Calcium Total Bilirubin AST ALT Alkaline Phosphatase Total Protein Albumin Globulin Albumin/Globulin Ratio Ur Bilirubin Confirm Negative Urine RBC 0-1/hpf Urine WBC 5-10/hpf H Ur Squamous Epith Cells None seen Urine Bacteria Occasional (0-1) Ur Culture Indicated? Specimen cultured Chlamy pneumoniae PCR Adenovirus (PCR) B. pertussis DNA (PCR) B.parapertussis DNA PCR Coronavirus OC43 (PCR) Coronavirus HKU1 (PCR) Coronavirus 229E (PCR) SARS-CoV-2 (PCR) Coronavirus NL63 (PCR) Human Metapneumovir PCR Influenza Type A (PCR) Influenza Type B (PCR) M. pneumoniae (PCR) Parainfluenza 1 (PCR) Parainfluenza 2 (PCR) Parainfluenza 3 (PCR) Parainfluenza 4 (PCR) RSV (PCR) Entero/Rhino (PCR) 07/18/21 07/18/21 07/19/21 19:09 20:45 07:35 WBC 5.4 RBC 4.17 L Hgb 13.3 L Hct 38.4 L MCV 92.1 MCH 31.9 MCHC 34.6 RDW 14.0 Plt Count 169 Neut % (Auto) 82.3 H Lymph % (Auto) 9.4 L [place] % (Auto) 7.9 Eos % (Auto) 0.2 L Baso % (Auto) 0.2 Neut # (Auto) 4500 Lymph # (Auto) 500 L [place] # (Auto) 400 Eos # (Auto) 0 Baso # (Auto) 0 Sodium Potassium Chloride Carbon Dioxide BUN Creatinine Estimated GFR BUN/Creatinine Ratio Glucose Lactate Calcium Total Bilirubin AST ALT Alkaline Phosphatase Total Protein Albumin Globulin Albumin/Globulin Ratio Ur Bilirubin Confirm Urine RBC Urine WBC Ur Squamous Epith Cells Urine Bacteria Ur Culture Indicated? Chlamy pneumoniae PCR Not detected Adenovirus (PCR) Not detected B. pertussis DNA (PCR) Not detected B.parapertussis DNA PCR Not detected Coronavirus OC43 (PCR) Not detected Coronavirus HKU1 (PCR) Not detected Coronavirus 229E (PCR) Not detected SARS-CoV-2 (PCR) Positive H Detected H Coronavirus NL63 (PCR) Not detected Human Metapneumovir PCR Not detected Influenza Type A (PCR) Not detected Influenza Type B (PCR) Not detected M. pneumoniae (PCR) Not detected Parainfluenza 1 (PCR) Not detected Parainfluenza 2 (PCR) Not detected Parainfluenza 3 (PCR) Not detected Parainfluenza 4 (PCR) Not detected RSV (PCR) Not detected Entero/Rhino (PCR) Not detected 07/19/21 07:35 WBC RBC Hgb Hct MCV MCH MCHC RDW Plt Count Neut % (Auto) Lymph % (Auto) [place] % (Auto) Eos % (Auto) Baso % (Auto) Neut # (Auto) Lymph # (Auto) [place] # (Auto) Eos # (Auto) Baso # (Auto) Sodium 138 Potassium 4.2 Chloride 108 H Carbon Dioxide 26 BUN 19 Creatinine 0.90 Estimated GFR > 60 BUN/Creatinine Ratio 21.1 Glucose 175 H Lactate Calcium 8.3 L Total Bilirubin 0.8 AST 34 ALT 40 Alkaline Phosphatase 51 Total Protein 6.5 Albumin 3.5 Globulin 3.0 Albumin/Globulin Ratio 1.2 Ur Bilirubin Confirm Urine RBC Urine WBC Ur Squamous Epith Cells Urine Bacteria Ur Culture Indicated? Chlamy pneumoniae PCR Adenovirus (PCR) B. pertussis DNA (PCR) B.parapertussis DNA PCR Coronavirus OC43 (PCR) Coronavirus HKU1 (PCR) Coronavirus 229E (PCR) SARS-CoV-2 (PCR) Coronavirus NL63 (PCR) Human Metapneumovir PCR Influenza Type A (PCR) Influenza Type B (PCR) M. pneumoniae (PCR) Parainfluenza 1 (PCR) Parainfluenza 2 (PCR) Parainfluenza 3 (PCR) Parainfluenza 4 (PCR) RSV (PCR) Entero/Rhino (PCR) PFSH Medical History Adenocarcinoma of right lung, stage 4 Adrenal insufficiency BPH w urinary obs/LUTS COVID-19 Diabetes History of colonic polyps Hypertension Port-A-Cath in place Tobacco consumption Surgical History H/O hand surgery (~2013) H/O shoulder surgery (~1997) History of lung surgery History of vascular access device Family History Father Prostate cancer Social History household members: spouse Smoking Status: Former smoker alcohol intake: current substance use type: does not use Discharge Plan Discharge Plan Patient Disposition: Home Provider Discharge Comment: Take Prednisone 30mg daily for 5 days, 20mg daily for 1 week, 10mg daily for 1 week, then 10mg every other day, alternating with 5mg for 2 weeks, then back to 5mg daily after that Discharge orders & Medications Prescriptions: New prednisone 20 mg tablet 20 - 30 mg PO DAILY Qty: 20 0RF Rx Instructions: 30 mg daily for 5 days, then 20mg daily for 1 week, then 10mg daily for 1 week, then 10mg alternating with 5mg every other day for 2 weeks, then 5mg daily Continued losartan 25 mg tablet 25 mg PO DAILY Qty: 90 2RF Hold Instructions: hypotensive aspirin 81 mg Tablet,Chewable 81 mg PO DAILY 0RF prednisone 5 mg tablet 5 - 10 mg PO DAILY Qty: 90 1RF Rx Instructions: Use as necessary to achieve proper dose Follow up/Referrals: Tulio Flaherty MD [Primary Care Provider] - 2 Weeks Discharge Health Status Multidrug resistant organism: No MDRO Diet/Activity/Treatments Diet: Diet as Tolerated and Carb-consistent/Diabetic Discharge Data Primary Care Provider: Tluio Flaherty Quality VTE Deep Vein Thrombosis/Pulmonary Embolism Present on Admission: No
== END 2021-07-19 17:15 | disposition home or self-care (01) | DRG 644 ==
LOC: ED 18:26 → AC 18:43 → ICU 20:26
PROVIDERS: Admitting Provider Family Medicine; Emergency Provider Emergency Medicine; PCP Internal Medicine; Referring Provider Emergency Medicine; Visit Provider Internal Medicine
DX: E27.2 Addisonian crisis (principal); N17.9 Acute kidney failure, unspecified; R00.0 Tachycardia, unspecified; I10 Essential (primary) hypertension; E11.65 Type 2 diabetes mellitus with hyperglycemia; Z86.16 Personal history of COVID-19; Z87.891 Personal history of nicotine dependence
CPT/HCPCS: 36415; 71045; 71260; 74177; 80053; 81003; 81015; 82550; 82962; 83605; 83690; 84145; 84484; 85025; 85610; 85730; 87040; 87045; 87086; 87633; 87635; 87899; 93005; 93010; 94762; 96361; 96365; 96366; 96375; 99235; 99284; C9803; J0696; J1650; J1720; J1815; J1885

== ENCOUNTER → 2021-08-20 12:33 | Outpatient (CLI) | payer MEDICARE, OTHER, SELFPAY ==
[2020-09-03 14:45] VITALS: BMI 33.2
[2021-07-18 20:17] VITALS: BMI 31.9
--- NOTE | 2021-08-20 12:36 | DI.CT.S_ITS ---
PROCEDURE: CT CHEST ABD PEL W CON INDICATIONS: stage 4 lung cancer TECHNIQUE: After the administration of oral and intravenous contrast, axial sections acquired from the supraclavicular neck to the pubic symphysis. Coronal and sagittal reformats were performed. For radiation dose reduction, the following was used: automated exposure control, adjustment of mA and/or kV according to patient size. COMPARISON: [facility], CT, CT CHEST ABD PEL W CON, 02/27/2021, 13:42. [facility], CT, CT CHEST ABD PEL W CON, 07/18/2021, 14:05. FINDINGS: Image quality: Excellent. CHEST: Lower Neck: No enlarged lymph nodes. Thyroid: Unremarkable Axillae: No enlarged lymph nodes. Chest Wall: Unremarkable. Lungs and Airways: Nodular right-sided pleural thickening is redemonstrated, similar in extent to the CT dated July 18, [address] dated February 27, 2021. Pleura: No pneumothorax or pleural effusions. Heart: Heart size is normal. No pericardial effusion. Thoracic Vessels: The aorta and pulmonary arteries demonstrate normal size. Mediastinum and Anamika: No enlarged lymph nodes. Esophagus: No wall thickening. No hiatal hernia. ABDOMEN: Liver: The liver is diffusely hypodense suggesting fatty infiltration. Ill-defined low-density cystic lesion is redemonstrated within the posterior left hepatic lobe. Gallbladder: Unremarkable. Biliary ducts: Unremarkable. Pancreas: Unremarkable. Spleen: Unremarkable. Adrenal Glands: Unremarkable. Kidneys and Ureters: Unremarkable. Stomach and Bowel: Stomach, small bowel loops, and colon are unremarkable. The appendix is thin walled and gas filled. There are scattered sigmoid diverticula. No evidence for diverticulitis. Peritoneum: No abnormal intraperitoneal fluid. No free air. Ventral Wall: No hernia. Abdominal Nodes: No retroperitoneal or mesenteric adenopathy by size criteria. Vessels: Aorta and inferior vena cava are normal in size. There are scattered atheromatous calcifications throughout the aorta and iliac arteries bilaterally. PELVIS: Pelvic Organs: Unremarkable. Bladder: Unremarkable. Pelvic Nodes: No enlarged lymph nodes. Miscellaneous: No inguinal hernias are seen. Bones: Unremarkable. IMPRESSION: 1. Stable nodular right pleural thickening when compared with prior studies. No findings to suggest tumor progression or new metastasis. Dictated by: Priscilla Baez M.D. on 08/20/2021 at 16:17 Approved by: Priscilla Baez M.D. on 08/20/2021 at 16:46
== END ==
PROVIDERS: PCP Internal Medicine; Referring Provider Internal Medicine Hematology & Oncology; Visit Provider Internal Medicine Hematology & Oncology
DX: C34.91 Malignant neoplasm of unspecified part of right bronchus or lung (principal)
CPT/HCPCS: 71260; 74177; Q9967

== ENCOUNTER → 2021-11-21 07:38 | Outpatient (CLI) | payer MEDICARE, OTHER, SELFPAY ==
[2021-07-18 20:17] VITALS: BMI 31.9
--- NOTE | 2021-11-21 07:40 | DI.CT.S_ITS ---
PROCEDURE: CT CHEST ABD PEL W CON INDICATIONS: lung cancer TECHNIQUE: After the administration of intravenous contrast, axial sections acquired from the supraclavicular neck to the pubic symphysis. Coronal and sagittal reformats were performed. For radiation dose reduction, the following was used: automated exposure control, adjustment of mA and/or kV according to patient size. COMPARISON:[facility], CT, CT CHEST ABD PEL W CON, 02/27/2021, 13:42. [facility], CT, CT CHEST ABD PEL W CON, 07/18/2021, 14:05. [facility], CT, CT CHEST ABD PEL W CON, 08/20/2021, 14:36. FINDINGS: Image quality: Excellent. CHEST: Lower Neck: No enlarged lymph nodes. Thyroid: Within normal limits. Axillae: No enlarged lymph nodes. Chest Wall: Unremarkable. Lungs and Airways: Previously identified appearance of right hemithorax nodular pleural thickening is unchanged. Pleura: No pneumothorax or pleural effusions. Heart: Heart size is normal. No pericardial effusion. Thoracic Vessels: The aorta and pulmonary arteries demonstrate normal size. Mediastinum and Anamika: No enlarged lymph nodes. Esophagus: No wall thickening. No hiatal hernia. ABDOMEN: Liver: Hepatic steatosis is present. Liver is mildly enlarged, unchanged. Unchanged appearance of low-attenuation focus within the left lobe is present suggestive of simple cyst. Gallbladder: Unremarkable. Biliary ducts: Unremarkable. Pancreas: Unremarkable. Spleen: Unremarkable. Adrenal Glands: Left adrenal nodule is unchanged.. Kidneys and Ureters: Unremarkable. Stomach and Bowel: Stomach, small bowel loops, and colon are unremarkable. Colonic diverticula are present. There is no inflammatory change. Peritoneum: No abnormal intraperitoneal fluid. No free air. Ventral Wall: No hernia. Abdominal Nodes: No retroperitoneal or mesenteric adenopathy by size criteria. 7 mm perigastric lymph node on series 2, image 52 appears slightly more dense when compared to prior exam. It is approximately 1 mm enlarged compared to prior exam in 2020 Vessels: Aorta and inferior vena cava are normal in size. PELVIS: Pelvic Organs: Unremarkable. Bladder: Unremarkable. Pelvic Nodes: No enlarged lymph nodes. Miscellaneous: Fat trace containing inguinal hernias are present. Bones: Unremarkable. IMPRESSION: 1. Stable appearance of right hemithorax pleural nodular thickening. 2. Slightly more dense appearance of the perigastric lymph node compared to prior exam on 08/20/2021 and slight interval enlargement compared to 2020. This may represent appearance of volume averaging. However, interval attention to this region is recommended on follow-up exam. Dictated by: Zaira Kelley M.D. on 11/21/2021 at 17:10 Approved by: Zaira Kelley M.D. on 11/21/2021 at 17:15
== END ==
PROVIDERS: PCP Internal Medicine; Referring Provider Internal Medicine Hematology & Oncology; Visit Provider Internal Medicine Hematology & Oncology
DX: C34.91 Malignant neoplasm of unspecified part of right bronchus or lung (principal)
CPT/HCPCS: 71260; 74177; Q9967

== ENCOUNTER → 2022-02-21 09:27 | Outpatient (CLI) | payer MEDICARE, OTHER, SELFPAY ==
[2021-07-18 20:17] VITALS: BMI 31.9
--- NOTE | 2022-02-21 09:29 | DI.CT.S_ITS ---
PROCEDURE: CT CHEST ABD PEL W CON INDICATIONS: lung cancer TECHNIQUE: After the administration of oral and intravenous contrast, axial sections acquired from the supraclavicular neck to the pubic symphysis. Coronal and sagittal reformats were performed. For radiation dose reduction, the following was used: automated exposure control, adjustment of mA and/or kV according to patient size. COMPARISON: [facility], CT, CT CHEST ABD PEL W CON, 11/21/2021, 9:23. [facility], CT, CT CHEST ABD PEL W CON, 02/27/2021, 13:42. [facility], CT, CT ANGIO CHEST PE PROTOCOL, 06/30/2021, 22:08. [facility], CT, CT CHEST ABD PEL W CON, 07/18/2021, 14:05. [facility], CT, CT CHEST ABD PEL W CON, 08/20/2021, 14:36. FINDINGS: Image quality: Excellent. CHEST: Lower Neck: No enlarged lymph nodes. Thyroid: Within normal limits. Axillae: No enlarged lymph nodes. Chest Wall: A right-sided chest port is seen, with the tip within the inferior aspect of the superior vena cava. Lungs and Airways: On the right, there is again seen nodular pleural thickening, with an appearance similar to the 11/21/2021 examination. There is a mild degree of dependent consolidation seen involving the right lower lobe, which has progressed compared to the prior examination. Pleura: No pneumothorax or pleural effusions. Heart: Heart size is normal. No pericardial effusion. Thoracic Vessels: The aorta and pulmonary arteries demonstrate normal size. Mediastinum and Anamika: Enlarged mediastinal lymph nodes are seen, including a right paratracheal lymph node that measures 22 by 13 mm. Esophagus: No wall thickening. No significant hiatal hernia. ABDOMEN: Liver: Diffuse fatty liver infiltration is noted. No focally suspicious liver lesions are seen. Gallbladder: Unremarkable. Biliary ducts: Unremarkable. Pancreas: Unremarkable. Spleen: Unremarkable. Adrenal Glands: Unremarkable. Kidneys and Ureters: Unremarkable. Stomach and Bowel: Stomach, small bowel loops, and colon are unremarkable. Colonic diverticulosis is seen, without findings of active diverticulitis. Peritoneum: No abnormal intraperitoneal fluid. No free air. Ventral Wall: No hernia. Abdominal Nodes: There is a stable perigastric lymph node seen, as on series 2, image 59, measuring 8 x 12 mm. Vessels: Aorta and inferior vena cava are normal in size. PELVIS: Pelvic Organs: Unremarkable. Bladder: Unremarkable. Pelvic Nodes: No enlarged lymph nodes. Miscellaneous: Mild bilateral fat containing inguinal hernias are seen. Vasectomy clips are seen. Bones: Degenerative changes are seen throughout, particularly involving lumbar spine. There is transitional lumbar anatomy, with lumbarization of S1 on the left side. IMPRESSION: Enlarged mediastinal lymph nodes are seen, which are increased in size compared to the prior. Stable nodular pleural thickening can be seen involving the right lung. There is worsening dependent consolidation seen involving the right lower lobe. Atelectasis is suspected, although differential diagnosis would also include infection. Neoplasm is possible, yet considered to be less likely. There is a stable perigastric lymph node seen. Additional findings: Right-sided chest port Fatty liver infiltration Diverticulosis, without active diverticulitis Lumbar spine degenerative change Partially lumbarized S1 on the left Mild bilateral fat containing inguinal hernias Vasectomy clips Dictated by: Mark Anthony Baron M.D. on 02/21/2022 at 17:49 Approved by: Mark Anthony Baron M.D. on 02/21/2022 at 17:56
[2022-02-21 10:15] LABS: Add Manual Diff / Slide Review NO; Basophils Absolute Auto 100 /uL (0-100); Basophils Percent Auto 1.1 % (0-2); Eosinophils Absolute Auto 600 /uL (0-450); Eosinophils Percent Auto 10.1 % (2-4); Lymphocytes Absolute Auto 2200 /uL (1100-4500); Lymphocytes Percent Auto 39.6 % (25-40); Mean Corpuscular HGB Conc 34.8 % (30-36); Mean Corpuscular Hemoglobin 32.8 PG (26-34); Mean Corpuscular Volume 94.1 fL (80-100); Monocytes Absolute Auto 600 /uL (0-900); Monocytes Percent Auto 10.9 % (3-14); Neutrophils Absolute Auto 2100 /uL (1500-7000); Neutrophils Percent Auto 38.3 % (50-75); Platelet Count 264 X10^3/uL (150-400); Red Blood Cell Count 4.57 X10^6/uL (4.5-5.9); Red Cell Distribution Width 13.2 % (11.6-14.8); White Blood Cell Count 5.5 X10^3/uL (4.5-11.0)
[2022-02-21 10:43] LABS: Alanine Aminotransferase 40 IU/L (<50); Albumin 4.4 g/dL (3.5-5.0); Albumin Globulin Ratio 1.1 (1.0-2.8); Alkaline Phosphatase 45 U/L (38-126); Aspartate Aminotransferase 38 IU/L (17-59); BUN Creatinine Ratio 19.7 (6-22); Bilirubin Total 0.8 mg/dL (0.2-1.3); Blood Urea Nitrogen 15 mg/dL (9-20); Calcium 8.1 mg/dL (8.4-10.2); Carbon Dioxide 18 mmol/L (22-32); Chloride 98 mmol/L (98-107); Estimated Glomerular Filt Rate > 60 mL/min (>60); Globulin 3.9 g/dL (1.7-4.1); Glucose 134 mg/dL (80-110); Potassium 4.2 mmol/L (3.4-5.1); Sodium 137 mmol/L (137-145); Total Protein 8.3 g/dL (6.3-8.2)
[2022-02-21 10:46] LABS: HEMOLYSIS 136 (0-50)
== END ==
PROVIDERS: PCP Internal Medicine; Referring Provider Internal Medicine Hematology & Oncology; Visit Provider Internal Medicine Hematology & Oncology
DX: C34.91 Malignant neoplasm of unspecified part of right bronchus or lung (principal); R59.0 Localized enlarged lymph nodes; K76.0 Fatty (change of) liver, not elsewhere classified; K57.90 Diverticulosis of intestine, part unspecified, without perforation or abscess without bleeding; M47.816 Spondylosis without myelopathy or radiculopathy, lumbar region; K40.20 Bilateral inguinal hernia, without obstruction or gangrene, not specified as recurrent; Z95.828 Presence of other vascular implants and grafts
CPT/HCPCS: 36415; 71260; 74177; 80053; 85025

== ENCOUNTER 2022-03-13 02:56 | Emergency (ER) | payer MEDICARE, OTHER, SELFPAY ==
[2021-07-18 20:17] VITALS: BMI 31.9
[2022-03-13 03:20] VITALS: BP 121/87; PULSE 58; RESP 18; TEMP 36.4; O2SAT 96; BMI 31.5
--- NOTE | 2022-03-13 03:33 | ED.EXTPRO ---
HPI - Extremity Problem General Chief complaint: Extremity Problem,Nontraumatic Stated complaint: excess pain in rt shoulder Time Seen by Provider: 03/13/22 03:25 Source: patient Mode of arrival: Ambulatory Limitations: no limitations History of Present Illness HPI Narrative: Patient is a 66-year-old male. Does have a history of lung cancer. Has a port in his right upper chest. He is currently under ?surveillance ?by Oncology. Not currently getting any chemotherapy. He is here for evaluation of right shoulder pain. He is had right shoulder pain for several months. Has seen by Orthopedics. Has had x-rays. Was told that there was nothing surgical. Has not had an MRI. 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 Has had worsening discomfort over the past couple days to the point where he having problems sleeping at night. He is taking Tylenol. He did have a leftover oxycodone from a previous medical procedure and took 1 of those this evening as well. He was told by his primary doctor to come into the emergency department. He states that the pain is somewhat better with sitting up. Not completely reproduced by palpation but is more when he lays down. He does have no neck pain but today had some tingling down his right arm. Related Data Home Medications Medication Instructions Recorded Confirmed aspirin 81 mg chewable tablet 81 mg PO DAILY 02/07/20 02/27/22 Previous Rx's Medication Instructions Recorded sildenafil 100 mg tablet 50 - 100 mg PO DAILY PRN sexual 09/13/21 activity #10 tabs losartan 25 mg tablet 25 mg PO DAILY #90 tabs 10/14/21 prednisone 5 mg tablet See Rx Instructions .Route 11/28/21 .COMPLEX adrenal insufficicny #60 tabs cyclobenzaprine 10 mg tablet 10 mg PO TID PRN muscle spasm #30 02/12/22 tabs tramadol 50 mg tablet 50 mg PO TID PRN pain #30 tabs 02/26/22 Allergies Allergy/AdvReac Type Severity Reaction Status Date / Time bee venom protein (honey bee) Allergy Intermediate Hives Verified 09/13/21 16:01 Penicillins Allergy Intermediate Hives Verified 09/13/21 16:01 hydrocodone Allergy ITCHING Verified 09/13/21 16:01 Review of Systems Constitutional Constitutional: Reports system reviewed and no additional complaints, except as documented Respiratory Respiratory: Reports system reviewed and no additional complaints, except as documented Musculoskeletal Musculoskeletal: Reports system reviewed and no additional complaints, except as documented Integumentary/Breasts Skin/Breast: Reports system reviewed and no additional complaints, except as documented Neurologic Neurologic: Reports system reviewed and no additional complaints, except as documented Hematologic/Lymphatic On Anticoagulants: No Patient History Medical History Adenocarcinoma of right lung, stage 4 Adrenal insufficiency BPH w urinary obs/LUTS COVID-19 Diabetes History of colonic polyps Hypertension Port-A-Cath in place Tobacco consumption Surgical History H/O hand surgery (~2013) H/O shoulder surgery (~1997) History of lung surgery History of vascular access device Family History Father Prostate cancer Social History household members: spouse Smoking Status: Former smoker alcohol intake: current substance use type: does not use Smoking Status: Former smoker alcohol intake frequency: 3 or more drinks per day Substance Use Type: does not use Exam Initial Vital Signs Initial Vital Signs: Vital Signs Temperature 97.6 F 03/13/22 03:20 Pulse Rate 58 L 03/13/22 03:20 Respiratory Rate 18 03/13/22 03:20 Blood Pressure 121/87 03/13/22 03:20 Pulse Oximetry 96 03/13/22 03:20 Oxygen Delivery Method 03/13/22 03:20 Const General: cooperative and No ill appearing HENTX Head: normal to inspection Resp Effort & Inspection: normal respiratory effort Skin General: no rashes or lesions noted Other: Skin over the port looks well. Extrem Other: Patient states the discomfort is on the inside of his shoulder. No reproducible pain with palpation over the AC joint or over the clavicle or over the front of the shoulder. Course Orders Ordered: Discontinued Medications Hydromorphone HCl (Hydromorphone 1 Mg Inj) 1 mg IM NOW ONE Stop: 03/13/22 03:35 Ketorolac Tromethamine (Ketorolac 30 Mg/Ml Vial) 30 mg IM NOW ONE Stop: 03/13/22 03:35 Oxycodone/Acetaminophen (Oxycodone/Apap 5/325 Prepack) 1 bottle MISC SEEINSTR ONE Stop: 03/13/22 03:35 Vital Signs Vital signs: Vital Signs - 8 hr 03/13/22 03:20 Temperature 97.6 F Pulse Rate 58 L Respiratory Rate 18 Blood Pressure 121/87 Pulse Oximetry 96 Oxygen Delivery Method Room Air MDM - Extremity (Nontraumatic) MDM Narrative Medical decision making narrative: Patient has had symptoms for months and has been evaluated by Orthopedics and also his primary doctor. No indication for radiologic studies today. Low suspicion for ACS. He may benefit from an MRI but unfortunately that is not possible to obtain out of the emergency department today. Will attempt to control the symptoms somewhat here out of the emergency department and have the patient contact his primary doctor/orthopedic provider for a follow-up. Discharge Plan Departure Patient Disposition: Home Clinical Impression: Right shoulder pain Instructions: DI for Shoulder Pain Activity Restrictions/Additional Instructions: I recommend that you contact your primary doctor for follow-up and potentially contact the orthopedic providers for follow-up as well. You can discuss with them the indications for referral to have an MRI of the shoulder. Use the pain medication as needed. Continue with the Tylenol and the rest of your medications as directed. Prescriptions: No Action losartan 25 mg tablet 25 mg PO DAILY Qty: 90 2RF Hold Instructions: hypotensive cyclobenzaprine 10 mg tablet 10 mg PO TID PRN (Reason: muscle spasm) Qty: 30 1RF tramadol 50 mg tablet 50 mg PO TID PRN (Reason: pain) Qty: 30 0RF sildenafil 100 mg tablet 50 - 100 mg PO DAILY PRN (Reason: sexual activity) Qty: 10 3RF Rx Instructions: administer 30 minutes to 4 hours before activity prednisone 5 mg Tablet See Rx Instructions .ROUTE .COMPLEX Qty: 60 2RF Rx Instructions: Take 5 mg (1 pill) by mouth in the morning and 2.5 mg (1/2 pill) by mouth in the afternoon. aspirin 81 mg Tablet,Chewable 81 mg PO DAILY Referrals: Tulio Flaherty MD [Primary Care Provider] - Stand Alone Forms: Patient Portal/API
[2022-03-13] MEDS: KETOROLAC 30 MG/ML VIAL IM (03:40)
[2022-03-13] MEDS: OXYCODONE/APAP 5/325 PREPACK 1 BOTTLE MISC (03:40)
== END 2022-03-13 04:15 | disposition home or self-care (01) ==
PROVIDERS: Emergency Provider Emergency Medicine; PCP Internal Medicine
DX: M25.511 Pain in right shoulder (principal)
CPT/HCPCS: J1885

== ENCOUNTER 2022-03-13 19:51 | Emergency (ER) | payer MEDICARE, OTHER, SELFPAY ==
[2021-07-18 20:17] VITALS: BMI 31.9
[2022-03-13 19:53] VITALS: BP 139/90; PULSE 99; RESP 18; TEMP 36.9; O2SAT 96; BMI 31.5
--- NOTE | 2022-03-13 20:02 | DI.RAD.S_ITS ---
PROCEDURE: XR CHEST 1V INDICATIONS: R sided chest pain TECHNIQUE: One view of the chest was acquired. COMPARISON: [facility], CR, XR CHEST 1V, 07/18/2021, 12:36. FINDINGS: Surgical changes and devices: Right Port-A-Cath is unchanged Lungs and pleura: Mild interstitial prominence is present. There is unchanged blunting of the right costophrenic angle as well as right hemidiaphragmatic elevation. Mediastinum: Mediastinal contours appear normal. Heart size is normal. Bones and chest wall: No suspicious bony lesions. Overlying soft tissues appear unremarkable. IMPRESSION: Persistent appearance right costophrenic angle blunting suggestive effusion versus scarring. Mild appearance of increased interstitial opacities are present which could represent edema versus developing interstitial pneumonia. Dictated by: Zaira Kelley M.D. on 03/13/2022 at 20:58 Approved by: Zaira Kelley M.D. on 03/13/2022 at 20:59
--- NOTE | 2022-03-13 22:30 | ED.CHESTPAIN ---
HPI - Chest Pain General Chief Complaint: Chest Pain Stated Complaint: chest pain, difficulty breathing Time Seen by Provider: 03/13/22 20:02 Source: patient Mode of arrival: Ambulatory Limitations: no limitations History of Present Illness HPI narrative: 66-year-old male who is here for evaluation of right-sided upper chest pain and right shoulder pain. I evaluated the patient in the emergency department last evening for the same symptoms. Was discharged home with pain medication. He states the pain medication has been working but he is now out of that medicine. He is had right upper chest and shoulder discomfort for the past several months. He has been seen by orthopedics. Has had x-rays. Was told that there was no orthopedic issues. He did go see a homeopath and had an injection in his right shoulder which did not help. He thinks that it is the port in his right chest that was placed for chemotherapy after he had lung cancer and he does have a phone call into his oncologist to make an appointment about having this port removed. No fevers. Pain does seem to come and go. It is worse when he lays down at night and lays on his right shoulder. Has no skin changes over the area. It is difficult for him to exactly pinpoint where the discomfort is. Sometimes he points to his right upper chest other times he points to the top of his shoulder and other times he states that it is deep down inside. Does not seem to be made worse by movement of his right shoulder. He also states sometimes the pain is in the back of his upper shoulder. No fevers. When the pain is at its worse he does have some problems breathing but otherwise no breathing issues. No cough. Related Data Home Medications Medication Instructions Recorded Confirmed aspirin 81 mg chewable tablet 81 mg PO DAILY 02/07/20 02/27/22 Previous Rx's Medication Instructions Recorded sildenafil 100 mg tablet 50 - 100 mg PO DAILY PRN sexual 09/13/21 activity #10 tabs losartan 25 mg tablet 25 mg PO DAILY #90 tabs 10/14/21 prednisone 5 mg tablet See Rx Instructions .Route 11/28/21 .COMPLEX adrenal insufficicny #60 tabs cyclobenzaprine 10 mg tablet 10 mg PO TID PRN muscle spasm #30 02/12/22 tabs tramadol 50 mg tablet 50 mg PO TID PRN pain #30 tabs 02/26/22 oxycodone-acetaminophen 5 mg-325 1 tab PO Q6H PRN pain #10 tabs 03/13/22 mg tablet (Endocet) Allergies Allergy/AdvReac Type Severity Reaction Status Date / Time bee venom protein (honey bee) Allergy Intermediate Hives Verified 09/13/21 16:01 Penicillins Allergy Intermediate Hives Verified 09/13/21 16:01 hydrocodone Allergy ITCHING Verified 09/13/21 16:01 Review of Systems Constitutional Constitutional: Reports system reviewed and no additional complaints, except as documented Respiratory Respiratory: Reports system reviewed and no additional complaints, except as documented Musculoskeletal Musculoskeletal: Reports system reviewed and no additional complaints, except as documented Integumentary/Breasts Skin/Breast: Reports system reviewed and no additional complaints, except as documented Neurologic Neurologic: Reports system reviewed and no additional complaints, except as documented Hematologic/Lymphatic On Anticoagulants: No Patient History Medical History Adenocarcinoma of right lung, stage 4 Adrenal insufficiency BPH w urinary obs/LUTS COVID-19 Diabetes History of colonic polyps Hypertension Port-A-Cath in place Tobacco consumption Surgical History H/O hand surgery (~2013) H/O shoulder surgery (~1997) History of lung surgery History of vascular access device Family History Father Prostate cancer Social History household members: spouse Smoking Status: Former smoker alcohol intake: current substance use type: does not use Smoking Status: Former smoker alcohol intake frequency: 3 or more drinks per day Substance Use Type: does not use Exam Initial Vital Signs Initial Vital Signs: Vital Signs Temperature 98.4 F 03/13/22 19:53 Pulse Rate 99 H 03/13/22 19:53 Respiratory Rate 18 03/13/22 19:53 Blood Pressure 139/90 03/13/22 19:53 Pulse Oximetry 96 03/13/22 19:53 Oxygen Delivery Method 03/13/22 19:53 HENMT Head: normal to inspection and normocephalic Chest Other: Port in right upper chest appears well without surrounding erythema. Not tender to palpation Resp Effort & Inspection: normal respiratory effort Auscultation: clear to auscultation bilaterally Cardio Rate: regular rate Skin General: no rashes or lesions noted Neuro General: patient alert, patient awake, patient oriented x3 and moves all extremities Sensory Exam: no sensory deficits noted Extrem Other: No specific tenderness to palpation of his right shoulder over the AC joint or over his scapula however his clavicle. Psych Appearance: well kempt Course Orders Ordered: ED Orders 03/13/22 20:02 XR chest 1V Stat Discontinued Medications Hydromorphone HCl (Hydromorphone 1 Mg Inj) 1 mg IM NOW ONE Stop: 03/13/22 22:33 Last Admin: 03/13/22 22:43 Dose: 1 mg Documented By: HUDSON Oxycodone/Acetaminophen (Oxycodone/Apap 5/325 Prepack) 1 bottle MISC SEEINSTR ONE Stop: 03/13/22 22:33 Last Admin: 03/13/22 22:43 Dose: 1 bottle Documented By: HUDSON Vital Signs Vital signs: Vital Signs - 8 hr 03/13/22 19:53 Temperature 98.4 F Pulse Rate 99 H Respiratory Rate 18 Blood Pressure 139/90 Pulse Oximetry 96 Oxygen Delivery Method Room Air MDM - Chest Pain Imaging Data Chest x-ray: Radiologist's Impression: [address] [address] XRay Report Signed Patient: Anmol Hinojosa MR#: [id number] : 1955 Acct:[id number] Age/Sex: 66 / M Date of Service: 03/13/22 Loc: ED Accession Number: [id number] ?? Procedure: XR chest 1V Ordering Provider: Jonnathan Hastings D.O. PROCEDURE:? XR CHEST 1V ? INDICATIONS:? R sided chest pain ? TECHNIQUE:? One view of the chest was acquired.? ? COMPARISON:? [facility], , XR CHEST 1V, 07/18/2021, 12:36. ? FINDINGS:? ? Surgical changes and devices:? Right Port-A-Cath is unchanged ? Lungs and pleura:? Mild interstitial prominence is present.? There is unchanged blunting of the right costophrenic angle as well as right hemidiaphragmatic elevation. ? Mediastinum:? Mediastinal contours appear normal.? Heart size is normal.? ? Bones and chest wall:? No suspicious bony lesions.? Overlying soft tissues appear unremarkable.? ? IMPRESSION:? Persistent appearance right costophrenic angle blunting suggestive effusion versus scarring.? Mild appearance of increased interstitial opacities are present which could represent edema versus developing interstitial pneumonia. ? ? Dictated by: Zaira Kelley M.D. on 03/13/2022 at 20:58 ? ? Approved by: Zaira Kelley M.D. on 03/13/2022 at 20:59?? MDM Narrative Medical decision making narrative: Considered multiple etiologies the patient's symptoms to include fracture, dislocation, septic joint, ACS, pulmonary embolism, pneumonia, arthritis, rotator cuff tear, labral tear, infected port site, cervical radiculopathy, impingement syndrome another long musculoskeletal cardiovascular etiologies however given the length of time that he has had symptoms which has been several months, his prior workup, his x-rays today, his exam I feel that emergent infectious surgical etiologies are unlikely. My high suspicion is that this is either a rotator cuff or labral pathology and I did inform him that he does need to talk with his primary doctor/orthopedic provider about a MRI for further evaluation of this. This is not something that needs to be done out of the emergency department. Port site appears well. There is no signs of infection. He can talk with his oncologist about whether not he should have this removed in the risks and benefits of this. Will send home with another prescription for pain medication. Was given return precautions. He expressed understanding and agreement. Discharge Plan Departure Patient Disposition: Home Clinical Impression: Right shoulder pain Activity Restrictions/Additional Instructions: I do recommend that you contact your primary doctor to discuss further imaging of your shoulder to include a discussion on whether or not an MRI would be appropriate. You can also talk with your oncologist about the indications for removal of the port. Also recommend that you start on a stool softener. Return to the emergency department new symptoms Prescriptions: New oxycodone-acetaminophen [Endocet] 5-325 mg tablet 1 tab PO Q6H PRN (Reason: pain) Qty: 10 0RF No Action losartan 25 mg tablet 25 mg PO DAILY Qty: 90 2RF Hold Instructions: hypotensive cyclobenzaprine 10 mg tablet 10 mg PO TID PRN (Reason: muscle spasm) Qty: 30 1RF tramadol 50 mg tablet 50 mg PO TID PRN (Reason: pain) Qty: 30 0RF sildenafil 100 mg tablet 50 - 100 mg PO DAILY PRN (Reason: sexual activity) Qty: 10 3RF Rx Instructions: administer 30 minutes to 4 hours before activity prednisone 5 mg Tablet See Rx Instructions .ROUTE .COMPLEX Qty: 60 2RF Rx Instructions: Take 5 mg (1 pill) by mouth in the morning and 2.5 mg (1/2 pill) by mouth in the afternoon. aspirin 81 mg Tablet,Chewable 81 mg PO DAILY Referrals: Tulio Flaherty MD [Primary Care Provider] - Stand Alone Forms: Patient Portal/API
[2022-03-13] MEDS: OXYCODONE/APAP 5/325 PREPACK 1 BOTTLE MISC (22:43)
[2022-03-13] MEDS: HYDROMORPHONE 1 MG INJ IM (22:43)
--- NOTE | 2022-03-13 22:47 | PC.NURSE ---
pt was seen last night for same, c/o right shoulder pain he thinks something might be wrong with his port pt states he has not slept x 2 days d/t the pain has been trying to call his pcp without success
== END 2022-03-13 22:49 | disposition home or self-care (01) ==
PROVIDERS: Emergency Provider Emergency Medicine; PCP Internal Medicine
DX: M25.511 Pain in right shoulder (principal); R07.9 Chest pain, unspecified
CPT/HCPCS: 71045; 96372; 99283; J1170; J1885

== ENCOUNTER → 2022-03-26 11:23 | Outpatient (CLI) | payer MEDICARE, OTHER, SELFPAY ==
[2022-03-18 11:21] VITALS: BMI 31.9
--- NOTE | 2022-03-26 11:25 | DI.RAD.S_ITS ---
PROCEDURE: XR CHEST 2V INDICATIONS: cough TECHNIQUE: 2 views of the chest were acquired. COMPARISON: [facility], , XR CHEST 1V, 03/13/2022, 20:13. FINDINGS: Surgical changes and devices: Right chest wall port catheter, tip of which is at the cavoatrial junction. Lungs and pleura: Mild patchy opacity at the right lung base. No pneumothorax. Small right pleural effusion. Mediastinum: Mediastinal contours are normal. Heart size is normal. Bones and chest wall: No suspicious bony abnormalities. Soft tissues appear unremarkable. IMPRESSION: Right lung base pneumonia. Continued plain film surveillance is recommended to ensure resolution, and to exclude underlying or central malignancy. Dictated by: Harsha Vick M.D. on 03/26/2022 at 13:26 Approved by: Harsha Vick M.D. on 03/26/2022 at 13:26
== END ==
PROVIDERS: PCP Internal Medicine; Referring Provider Internal Medicine; Visit Provider Internal Medicine
DX: R05.9 Cough, unspecified (principal); J18.9 Pneumonia, unspecified organism
CPT/HCPCS: 71046

== ENCOUNTER → 2022-04-04 16:03 | Outpatient (CLI) | payer MEDICARE, OTHER, SELFPAY ==
[2022-03-18 11:21] VITALS: BMI 31.9
--- NOTE | 2022-04-04 16:06 | DI.RAD.S_ITS ---
PROCEDURE: XR CHEST 2V INDICATIONS: persistent pneumonia sx, short of breath, tachycardia TECHNIQUE: 2 views of the chest were acquired. COMPARISON: [facility], CT, CT CHEST ABD PEL W CON, 02/21/2022, 11:26. [facility], CR, XR CHEST 1V, 03/13/2022, 20:13. [facility], CR, XR CHEST 2V, 03/26/2022, 11:28. FINDINGS: Surgical changes and devices: The previously seen right-sided chest port has been removed. Lungs and pleura: Low lung volumes are seen, with patchy infiltrates within the right mid lung. Generalized interstitial prominence can be seen. Right-sided pleural thickening can be seen superiorly. There is persistent elevation the right hemidiaphragm. Mediastinum: Mediastinal contours are normal. Heart size is normal. Bones and chest wall: No suspicious bony abnormalities. Age-appropriate bony degenerative changes are seen. Soft tissues appear unremarkable. IMPRESSION: Patchy right midlung infiltrates are seen. Low lung volumes with generalized interstitial prominence. Persistent elevation of the right hemidiaphragm, with right-sided pleural thickening. Dictated by: Mark Anthony Baron M.D. on 04/04/2022 at 15:24 Approved by: Mark Anthony Baron M.D. on 04/04/2022 at 15:26
[2022-04-04 18:02] LABS: Add Manual Diff / Slide Review NO; Basophils Absolute Auto 100 /uL (0-100); Basophils Percent Auto 0.6 % (0-2); Eosinophils Absolute Auto 100 /uL (0-450); Eosinophils Percent Auto 1.5 % (2-4); Hematocrit 43.1 % (41-53); Lymphocytes Absolute Auto 1600 /uL (1100-4500); Lymphocytes Percent Auto 20.9 % (25-40); Mean Corpuscular HGB Conc 34.9 % (30-36); Mean Corpuscular Hemoglobin 32.2 PG (26-34); Mean Corpuscular Volume 92.3 fL (80-100); Monocytes Absolute Auto 500 /uL (0-900); Monocytes Percent Auto 7.1 % (3-14); Neutrophils Absolute Auto 5400 /uL (1500-7000); Neutrophils Percent Auto 69.9 % (50-75); Platelet Count 312 X10^3/uL (150-400); Red Blood Cell Count 4.67 X10^6/uL (4.5-5.9); Red Cell Distribution Width 12.9 % (11.6-14.8); White Blood Cell Count 7.8 X10^3/uL (4.5-11.0)
[2022-04-04 18:25] LABS: Alanine Aminotransferase 45 IU/L (<50); Albumin 4.3 g/dL (3.5-5.0); Albumin Globulin Ratio 1.1 (1.0-2.8); Alkaline Phosphatase 66 U/L (38-126); Aspartate Aminotransferase 32 IU/L (17-59); BUN Creatinine Ratio 17.3 (6-22); Bilirubin Total 0.4 mg/dL (0.2-1.3); Blood Urea Nitrogen 14 mg/dL (9-20); Calcium 9.3 mg/dL (8.4-10.2); Carbon Dioxide 22 mmol/L (22-32); Chloride 101 mmol/L (98-107); Estimated Glomerular Filt Rate > 60 mL/min (>60); Globulin 3.9 g/dL (1.7-4.1); Glucose 227 mg/dL (80-110); HEMOLYSIS < 15 (0-50); Potassium 4.1 mmol/L (3.4-5.1); Sodium 136 mmol/L (137-145); Total Protein 8.2 g/dL (6.3-8.2)
[2022-04-04 18:40] LABS: Procalcitonin 0.07 ng/mL (<0.5)
== END ==
PROVIDERS: PCP Internal Medicine; Referring Provider Student in an Organized Health Care Education/Training Program; Visit Provider Student in an Organized Health Care Education/Training Program
DX: C34.91 Malignant neoplasm of unspecified part of right bronchus or lung (principal); J18.9 Pneumonia, unspecified organism; R06.02 Shortness of breath
CPT/HCPCS: 36415; 71046; 80053; 84145; 85025

== ENCOUNTER → 2022-04-24 09:56 | Outpatient (CLI) | payer MEDICARE, OTHER, SELFPAY ==
[2021-07-18 20:17] VITALS: BMI 31.9
[2022-03-18 11:21] VITALS: BMI 31.9
--- NOTE | 2022-04-24 09:57 | DI.CT.S_ITS ---
PROCEDURE: CT CHEST W CON INDICATIONS: lung cancer TECHNIQUE: After the administration of intravenous contrast, 5 mm thick sections acquired from the pulmonary apices to the posterior costophrenic angles. 1 mm axial lung, 5 mm thick coronal and sagittal reformats and 7 mm axial MIP were acquired. For radiation dose reduction, the following was used: automated exposure control, adjustment of mA and/or kV according to patient size. COMPARISON: [facility], CT, CT CHEST ABD PEL W CON, 11/21/2021, 9:23. [facility], CT, CT CHEST ABD PEL W CON, 02/21/2022, 11:26. FINDINGS: Image quality: Adequate Lungs and pleura: Increasing irregular consolidative and ground-glass opacity in the right perihilar region and right lower lobe with associated volume loss. Similar small right pleural effusion. right-sided Nodular pleural thickening is suspected to be mildly increased but adjacent airspace opacity makes comparison challenging. Mediastinum: No pericardial effusion. Mediastinal adenopathy present as before, for example a right upper paratracheal lymph node which measures 1.5 cm (2/15) previously 1.3 cm. Thoracic aorta and central pulmonary arteries are normal in size. Esophagus is normal in caliber. Bones and chest wall: Multilevel degenerative change of the visualized spine. No axillary or supraclavicular adenopathy by size criteria. Abdomen: The liver is hypoattenuating suggestive of fatty infiltration. Prominent lymph nodes in the gastrohepatic ligament do not appear substantially changed. IMPRESSION: 1. Right-sided nodular pleural thickening is suspected to be mildly increased but adjacent airspace opacity makes comparison challenging. Continued attention on follow-up is recommended. 2. Increasing irregular consolidative and ground-glass opacities present in the right lung, most pronounced at the right perihilar region and right lower lobe. These findings are nonspecific and could represent worsening of disease, infection, inflammation or post treatment effects. Attention on follow-up is recommended. 3. Mediastinal adenopathy redemonstrated, similar to slightly increased. Dictated by: Cj Tobias M.D. on 04/24/2022 at 14:32 Approved by: Cj Tobias M.D. on 04/24/2022 at 15:03
== END ==
PROVIDERS: PCP Internal Medicine; Referring Provider Internal Medicine Hematology & Oncology; Visit Provider Internal Medicine Hematology & Oncology
DX: C34.91 Malignant neoplasm of unspecified part of right bronchus or lung (principal); J90 Pleural effusion, not elsewhere classified; R59.0 Localized enlarged lymph nodes
CPT/HCPCS: 71260; Q9967

== ENCOUNTER 2022-05-05 09:48 | Emergency (ER) | payer MEDICARE, OTHER, SELFPAY ==
[2022-03-18 11:21] VITALS: BMI 31.9
[2022-05-05] VITALS (70 sets, daily range): BP systolic 104–151; BP diastolic 57–89; PULSE 72–128; RESP 12–40; TEMP 37.2; O2SAT 88–100; BMI 32.3
--- NOTE | 2022-05-05 09:59 | DI.RAD.S_ITS ---
PROCEDURE: XR CHEST 1V INDICATIONS: SOB, lung CA, recent pneumonia TECHNIQUE: One view of the chest was acquired. COMPARISON: [facility], CR, XR CHEST 2V, 04/04/2022, 16:11. [facility], CT, CT CHEST W CON, 04/24/2022, 10:04. [facility], CR, XR CHEST 1V, 03/13/2022, 20:13. FINDINGS: Grossly there is no significant change in circumferential pleural thickening and right suprahilar radiation changes along with right basilar patchy airspace opacity right pleural effusion. Left lung and pleural space remain clear. IMPRESSION: Grossly stable exam when compared with 04/24/2022 CT, again with patchy airspace disease in the right lower lobe and right pleural effusion and circumferential right pleural thickening. Dictated by: Jones Hernandez M.D. on 05/05/2022 at 10:24 Approved by: Jones Hernandez M.D. on 05/05/2022 at 10:26
--- NOTE | 2022-05-05 10:06 | ED.GENADULT ---
HPI - General Adult <Jefe Plascencia DO - Last Filed: 05/06/22 15:59> General Chief complaint: Shortness of Breath/Dyspnea Stated complaint: Pneumonia not getting better getting worse Time Seen by Provider: 05/05/22 09:50 History of Present Illness HPI narrative: 66-year-old male former smoker with history of stage IV lung cancer, hypertension presents with a chief complaint of worsening shortness of breath and cough. He states that he has been having increasing pulmonary symptoms with shortness of breath, cough usually productive of yellowish sputum for the past few weeks. He had been seen and evaluated at the walk-in clinic and was diagnosed with pneumonia and has been on 2 rounds of antibiotics but has not had improvement. He is more short of breath with exertion. He denies any objective fever but does state he has been running hot and cold. He is not dizzy nor weak or lightheaded. He is had some nasal congestion. He denies nausea, vomiting or diarrhea. He denies any obvious orthopnea but states he can not lay flat because he gets some muscle spasm his shoulder. He denies any obvious weight gain or lower extremity pain or swelling. Related Data Home Medications Medication Instructions Recorded Confirmed aspirin 81 mg chewable tablet 81 mg PO DAILY 02/07/20 05/05/22 prednisone 5 mg tablet 17.5 mg PO DAILY adrenal 05/05/22 05/05/22 insufficicny Previous Rx's Medication Instructions Recorded sildenafil 100 mg tablet 50 - 100 mg PO DAILY PRN sexual 09/13/21 activity #10 tabs losartan 25 mg tablet 25 mg PO DAILY #90 tabs 10/14/21 benzonatate 200 mg capsule 200 mg PO TID PRN cough #30 caps 04/04/22 tramadol 50 mg tablet 50 mg PO TID PRN pain #45 tabs 04/15/22 cyclobenzaprine 10 mg tablet 10 mg PO TID PRN muscle spasm #30 05/01/22 tabs oxycodone-acetaminophen 10 mg-325 1 tab PO Q6H PRN cancer pain #60 05/01/22 mg tablet tabs amoxicillin 875 mg-potassium 1 tab PO Q12H #28 tabs 05/06/22 clavulanate 125 mg tablet Allergies Allergy/AdvReac Type Severity Reaction Status Date / Time bee venom protein (honey bee) Allergy Intermediate Hives Verified 05/05/22 10:15 Penicillins Allergy Intermediate Hives Verified 05/05/22 10:15 hydrocodone Allergy ITCHING Verified 05/05/22 10:15 Review of Systems <Jefe Plascencia DO - Last Filed: 05/06/22 15:59> Review of Systems Narrative: GENERAL: See HPI HEENT: Denies sinus pain, ear pain, sore throat, difficulty swallowing, dizziness. RESPIRATORY: See HPI CARDIOVASCULAR: See HPI GASTROINTESTINAL: Denies nausea, vomiting, abdominal pain, diarrhea, constipation, melena. : Denies dysuria, frequency, incontinence, hematuria, urinary retention. MUSCULOSKELETAL: denies weakness, joint pain, or bony pain SKIN: Denies rash, skin lesions, or other NEUROLOGIC: Denies weakness, headache, numbness, change in speech, confusion, seizures, incoordination. PSYCHIATRIC: No concerning psychosocial issues. 12 point review of systems is negative except for those stated above Patient History <Jefe Plascencia DO - Last Filed: 05/06/22 15:59> Medical History Adenocarcinoma of right lung, stage 4 Adrenal insufficiency BPH w urinary obs/LUTS COVID-19 Diabetes History of colonic polyps Hypertension Tobacco consumption Surgical History H/O hand surgery (~2013) H/O shoulder surgery (~1997) History of lung surgery History of vascular access device Family History Father Prostate cancer Social History household members: spouse Smoking Status: Former smoker alcohol intake: current substance use type: does not use Smoking Status: Former smoker alcohol intake frequency: 3 or more drinks per day Substance Use Type: does not use Exam <Jefe Plascencia DO - Last Filed: 05/06/22 15:59> Narrative Exam Narrative: GENERAL: [66] year old patient appears stated age. Well-developed patient, in mild distress. Increased work of breathing with exertion, initial pulse ox in the mid to upper 80s, after HEAD: Atraumatic. Normocephalic. EYES: Pupils equal round and reactive. Extraocular motions intact. No scleral icterus. No injection or drainage. ENT: Nose without bleeding, purulent drainage. Throat without erythema, tonsillar hypertrophy or exudate. Airway patent. NECK: Trachea midline. Non tender CARDIOVASCULAR: Tachycardic and regular rhythm without murmurs, gallops, or rubs. RESPIRATORY: Increased work of breathing, shallow and rapid, decreased lung sounds throughout with prolonged expiratory phase. No obvious rales or rhonchi GASTROINTESTINAL: Abdomen soft, non-tender, nondistended. EXTREMITIES: No edema or joint tenderness. BACK: Nontender without deformity or crepitance. No flank tenderness. NEURO: AOx3. SKIN: No rash or erythema of visible areas Initial Vital Signs Initial Vital Signs: Vital Signs Temperature 98.9 F 05/05/22 09:50 Pulse Rate 128 H 05/05/22 09:50 Respiratory Rate 34 H 05/05/22 09:50 Blood Pressure 121/67 05/05/22 09:50 Pulse Oximetry 93 05/05/22 09:50 Oxygen Delivery Method 05/05/22 09:50 <Dwight Gonsalez MD - Last Filed: 05/09/22 06:56> Initial Vital Signs Initial Vital Signs: Vital Signs Temperature 98.9 F 05/05/22 09:50 Pulse Rate 128 H 05/05/22 09:50 Respiratory Rate 34 H 05/05/22 09:50 Blood Pressure 121/67 05/05/22 09:50 Pulse Oximetry 93 05/05/22 09:50 Oxygen Delivery Method 05/05/22 09:50 Course <Jefe Plascencia DO - Last Filed: 05/06/22 15:59> Orders Ordered: Discontinued Medications Hydrocodone Bitart/Acetaminophen (Hydrocodone/Acet 5/325 Tablet) 2 tab PO Q4H PRN PRN Reason: Pain, Severe (7-10) Last Admin: 05/06/22 04:49 Dose: 2 tab Documented By: Admin: 05/05/22 19:53 Dose: 2 tab Documented By: SB Aspirin (Aspirin Ec 81 Mg Tablet) 81 mg PO DAILY CINDI Diphenhydramine HCl (Diphenhydramine 25 Mg Tablet) 25 mg PO NOW ONE Stop: 05/05/22 22:08 Last Admin: 05/05/22 22:11 Dose: 25 mg Documented By: SB Sodium Chloride (Normal Saline 0.9%) 1,000 mls @ 1,000 mls/hr IV BOLUS ONE Stop: 05/05/22 12:32 Last Infusion: 05/05/22 13:18 Dose: 0 mls/hr Documented By: Admin: 05/05/22 11:58 Dose: 1,000 mls/hr Documented By: AZAEL Piperacillin Sod/Tazobactam (Sod 4.5 gm/ Sodium Chloride) 100 mls @ 200 mls/hr IV NOW ONE Stop: 05/05/22 12:02 Last Infusion: 05/05/22 13:09 Dose: 0 mls/hr Documented By: Admin: 05/05/22 12:29 Dose: 200 mls/hr Documented By: AZAEL Sodium Chloride (Normal Saline 0.9%) 1,000 mls @ 125 mls/hr IV BOLUS ONE Stop: 05/05/22 21:17 Last Infusion: 05/05/22 21:42 Dose: 0 mls/hr Documented By: Admin: 05/05/22 13:21 Dose: 125 mls/hr Documented By: AZAEL Losartan Potassium (Losartan 25 Mg Tablet) 25 mg PO DAILY [facility] Naloxone HCl (Naloxone 0.4 Mg/Ml Vial) 0.2 mg IV Q2MIN PRN PRN Reason: Opiate Reversal Prednisone (Prednisone 20 Mg Tablet) 17.5 mg PO DAILY [facility] Consultations Consultation #1: discussed with PCP (Reynold) agrees with need for hospitalization and broad-spectrum antibiotics, however given the complexity of his history and recent failed outpatient he recommends patient be at a facility that can perform a bronchoscopy and is not comfortable with the patient staying at [facility] at this point time Vital Signs Vital signs: Vital Signs - 8 hr 05/06/22 08:26 05/06/22 08:00 05/06/22 08:15 Pulse Rate 110 H 99 H 104 H Respiratory Rate 20 Pulse Oximetry 93 05/06/22 08:30 05/06/22 08:45 05/06/22 09:00 Pulse Rate 105 H 101 H 102 H Respiratory Rate 13 23 21 Pulse Oximetry <Dwight Gonsalez MD - Last Filed: 05/09/22 06:56> Course Course Narrative: May 05, 2022 at 6:[address] Plascencia, patient will need transfer at request of primary care Dr. Flaherty, will need bronchoscopy. Patient has failed 2 rounds of outpatient antibiotics. Patient has already been started on Zosyn. Patient on 2 L nasal cannula. However [facility] does not have beds at this time. Oncologist is Dr. Pelayo. With [facility] oncology. May 06, 2022 at 7:00 a.m., Sign out Dr Plascencia, [facility] may be able to accept patient pending availability for corrosion control technician to call back Orders Ordered: Discontinued Medications Hydrocodone Bitart/Acetaminophen (Hydrocodone/Acet 5/325 Tablet) 2 tab PO Q4H PRN PRN Reason: Pain, Severe (7-10) Last Admin: 05/06/22 04:49 Dose: 2 tab Documented By: Admin: 05/05/22 19:53 Dose: 2 tab Documented By: [place] Aspirin (Aspirin Ec 81 Mg Tablet) 81 mg PO DAILY CINDI Diphenhydramine HCl (Diphenhydramine 25 Mg Tablet) 25 mg PO NOW ONE Stop: 05/05/22 22:08 Last Admin: 05/05/22 22:11 Dose: 25 mg Documented By: [place] Sodium Chloride (Normal Saline 0.9%) 1,000 mls @ 1,000 mls/hr IV BOLUS ONE Stop: 05/05/22 12:32 Last Infusion: 05/05/22 13:18 Dose: 0 mls/hr Documented By: Admin: 05/05/22 11:58 Dose: 1,000 mls/hr Documented By: AZAEL Piperacillin Sod/Tazobactam (Sod 4.5 gm/ Sodium Chloride) 100 mls @ 200 mls/hr IV NOW ONE Stop: 05/05/22 12:02 Last Infusion: 05/05/22 13:09 Dose: 0 mls/hr Documented By: Admin: 05/05/22 12:29 Dose: 200 mls/hr Documented By: AZAEL Sodium Chloride (Normal Saline 0.9%) 1,000 mls @ 125 mls/hr IV BOLUS ONE Stop: 05/05/22 21:17 Last Infusion: 05/05/22 21:42 Dose: 0 mls/hr Documented By: Admin: 05/05/22 13:21 Dose: 125 mls/hr Documented By: AZAEL Losartan Potassium (Losartan 25 Mg Tablet) 25 mg PO DAILY CINDI Naloxone HCl (Naloxone 0.4 Mg/Ml Vial) 0.2 mg IV Q2MIN PRN PRN Reason: Opiate Reversal Prednisone (Prednisone 20 Mg Tablet) 17.5 mg PO DAILY CINDI Vital Signs Vital signs: Vital Signs - 8 hr 05/06/22 08:26 05/06/22 08:00 05/06/22 08:15 Pulse Rate 110 H 99 H 104 H Respiratory Rate 20 Pulse Oximetry 93 05/06/22 08:30 05/06/22 08:45 05/06/22 09:00 Pulse Rate 105 H 101 H 102 H Respiratory Rate 13 23 21 Pulse Oximetry Medical Decision Making <Jefe Plascencia DO - Last Filed: 05/06/22 15:59> Lab Data 05/05/22 10:05 05/05/22 10:05 Labs: Lab Results 05/05/22 05/05/22 05/05/22 Range/Units 10:05 10:05 10:05 WBC 10.9 (4.5-11.0) X10^3/uL RBC 4.26 L (4.5-5.9) X10^6/uL Hgb 13.1 L (13.5-17.5) g/dL Hct 39.2 L (41-53) % MCV 92.0 (80-100) fL MCH 30.8 (26-34) PG MCHC 33.5 (30-36) % RDW 12.9 (11.6-14.8) % Plt Count 326 (150-400) X10^3/uL Neut % (Auto) 77.5 H (50-75) % Lymph % (Auto) 11.4 L (25-40) % [place] % (Auto) 9.1 (3-14) % Eos % (Auto) 1.5 L (2-4) % Baso % (Auto) 0.5 (0-2) % Neut # (Auto) 8400 H (6536-3155) /uL Lymph # (Auto) 1200 (5516-2953) /uL [place] # (Auto) 1000 H (0-900) /uL Eos # (Auto) 200 (0-450) /uL Baso # (Auto) 100 (0-100) /uL PT 13.8 H (10.1-12.7) SECONDS INR 1.2 (0.9-1.3) D-Dimer 3432 H (<500) ng/ml ABG pH (7.35-7.45) ABG pCO2 (35-45) mmHg ABG pO2 (80-100) mmHg ABG HCO3 (23-27) mmol/L ABG Total CO2 (23-27) mmol/L ABG O2 Saturation (95-100) % ABG Base Excess (-2-3) mmol/L FiO2 Sodium 129 L (137-145) mmol/L Potassium 3.9 (3.4-5.1) mmol/L Chloride 94 L (98-107) mmol/L Carbon Dioxide 22 (22-32) mmol/L BUN 16 (9-20) mg/dL Creatinine 0.65 L (0.66-1.25) mg/dL Estimated GFR > 60 (>60) mL/min BUN/Creatinine Ratio 24.6 H (6-22) Glucose 313 H (80-110) mg/dL Lactate (0.7-2.1) mmol/L Calcium 8.6 (8.4-10.2) mg/dL Magnesium 2.0 (1.6-2.3) mg/dL Total Bilirubin 0.9 (0.2-1.3) mg/dL AST 27 (17-59) IU/L ALT 32 (<50) IU/L Alkaline Phosphatase 58 (38-126) U/L Total Creatine Kinase 32 L (55-170) U/L CK-MB (CK-2) TNP CK-MB (CK-2) Rel Index TNP Troponin I 0.041 H (0.01-0.034) ng/mL NT-Pro-B Natriuret Pep 52 (<125) pg/mL Total Protein 7.6 (6.3-8.2) g/dL Albumin 3.9 (3.5-5.0) g/dL Globulin 3.7 (1.7-4.1) g/dL Albumin/Globulin Ratio 1.1 (1.0-2.8) Lipase 37 (23-300) U/L Procalcitonin 0.10 (<0.5) ng/mL Urine RBC (0-5/HPF) Urine WBC (0-5/HPF) Ur Squamous Epith Cells (0-5/HPF) Urine Bacteria (None) Ur Culture Indicated? Chlamy pneumoniae PCR (Not Detect) Adenovirus (PCR) (Not Detect) B. pertussis DNA (PCR) (Not Detecte) B.parapertussis DNA PCR (Not Detecte) Coronavirus OC43 (PCR) (Not Detect) Coronavirus HKU1 (PCR) (Not Detect) Coronavirus 229E (PCR) (Not Detect) SARS-CoV-2 (PCR) (Not Detecte) Coronavirus NL63 (PCR) (Not Detect) Human Metapneumovir PCR (Not Detect) Influenza Type A (PCR) (Not Detect) Influenza Type B (PCR) (Not Detect) M. pneumoniae (PCR) (Not Detect) Parainfluenza 1 (PCR) (Not Detect) Parainfluenza 2 (PCR) (Not Detect) Parainfluenza 3 (PCR) (Not Detect) Parainfluenza 4 (PCR) (Not Detect) RSV (PCR) (Not Detect) Entero/Rhino (PCR) (Not Detect) 05/05/22 05/05/22 05/05/22 Range/Units 10:05 10:53 11:00 WBC (4.5-11.0) X10^3/uL RBC (4.5-5.9) X10^6/uL Hgb (13.5-17.5) g/dL Hct (41-53) % MCV (80-100) fL MCH (26-34) PG MCHC (30-36) % RDW (11.6-14.8) % Plt Count (150-400) X10^3/uL Neut % (Auto) (50-75) % Lymph % (Auto) (25-40) % [place] % (Auto) (3-14) % Eos % (Auto) (2-4) % Baso % (Auto) (0-2) % Neut # (Auto) (8822-3497) /uL Lymph # (Auto) (6860-2275) /uL [place] # (Auto) (0-900) /uL Eos # (Auto) (0-450) /uL Baso # (Auto) (0-100) /uL PT (10.1-12.7) SECONDS INR (0.9-1.3) D-Dimer (<500) ng/ml ABG pH (7.35-7.45) ABG pCO2 (35-45) mmHg ABG pO2 (80-100) mmHg ABG HCO3 (23-27) mmol/L ABG Total CO2 (23-27) mmol/L ABG O2 Saturation (95-100) % ABG Base Excess (-2-3) mmol/L FiO2 Sodium (137-145) mmol/L Potassium (3.4-5.1) mmol/L Chloride (98-107) mmol/L Carbon Dioxide (22-32) mmol/L BUN (9-20) mg/dL Creatinine (0.66-1.25) mg/dL Estimated GFR (>60) mL/min BUN/Creatinine Ratio (6-22) Glucose (80-110) mg/dL Lactate 1.3 (0.7-2.1) mmol/L Calcium (8.4-10.2) mg/dL Magnesium (1.6-2.3) mg/dL Total Bilirubin (0.2-1.3) mg/dL AST (17-59) IU/L ALT (<50) IU/L Alkaline Phosphatase (38-126) U/L Total Creatine Kinase (55-170) U/L CK-MB (CK-2) CK-MB (CK-2) Rel Index Troponin I (0.01-0.034) ng/mL NT-Pro-B Natriuret Pep (<125) pg/mL Total Protein (6.3-8.2) g/dL Albumin (3.5-5.0) g/dL Globulin (1.7-4.1) g/dL Albumin/Globulin Ratio (1.0-2.8) Lipase (23-300) U/L Procalcitonin (<0.5) ng/mL Urine RBC None seen (0-5/HPF) Urine WBC None seen (0-5/HPF) Ur Squamous Epith Cells 0-1 /hpf (0-5/HPF) Urine Bacteria Occasional (0-1) (None) Ur Culture Indicated? Cult not indicated Chlamy pneumoniae PCR Not detected (Not Detect) Adenovirus (PCR) Not detected (Not Detect) B. pertussis DNA (PCR) Not detected (Not Detecte) B.parapertussis DNA PCR Not detected (Not Detecte) Coronavirus OC43 (PCR) Not detected (Not Detect) Coronavirus HKU1 (PCR) Not detected (Not Detect) Coronavirus 229E (PCR) Not detected (Not Detect) SARS-CoV-2 (PCR) Not detected (Not Detecte) Coronavirus NL63 (PCR) Not detected (Not Detect) Human Metapneumovir PCR Not detected (Not Detect) Influenza Type A (PCR) Not detected (Not Detect) Influenza Type B (PCR) Not detected (Not Detect) M. pneumoniae (PCR) Not detected (Not Detect) Parainfluenza 1 (PCR) Not detected (Not Detect) Parainfluenza 2 (PCR) Not detected (Not Detect) Parainfluenza 3 (PCR) Not detected (Not Detect) Parainfluenza 4 (PCR) Not detected (Not Detect) RSV (PCR) Not detected (Not Detect) Entero/Rhino (PCR) Not detected (Not Detect) 05/05/22 05/06/22 05/06/22 Range/Units 11:46 04:48 04:48 WBC 6.6 (4.5-11.0) X10^3/uL RBC 4.06 L (4.5-5.9) X10^6/uL Hgb 12.7 L (13.5-17.5) g/dL Hct 37.1 L (41-53) % MCV 91.3 (80-100) fL MCH 31.4 (26-34) PG MCHC 34.4 (30-36) % RDW 12.8 (11.6-14.8) % Plt Count 301 (150-400) X10^3/uL Neut % (Auto) 57.1 D (50-75) % Lymph % (Auto) 26.2 (25-40) % [place] % (Auto) 12.4 (3-14) % Eos % (Auto) 3.3 (2-4) % Baso % (Auto) 1.0 (0-2) % Neut # (Auto) 3800 (5281-0404) /uL Lymph # (Auto) 1700 (6047-0359) /uL [place] # (Auto) 800 (0-900) /uL Eos # (Auto) 200 (0-450) /uL Baso # (Auto) 100 (0-100) /uL PT (10.1-12.7) SECONDS INR (0.9-1.3) D-Dimer (<500) ng/ml ABG pH 7.47 H (7.35-7.45) ABG pCO2 32.5 L (35-45) mmHg ABG pO2 80 (80-100) mmHg ABG HCO3 24 (23-27) mmol/L ABG Total CO2 25 (23-27) mmol/L ABG O2 Saturation 97 (95-100) % ABG Base Excess 1.0 (-2-3) mmol/L FiO2 21 Sodium 134 L (137-145) mmol/L Potassium 3.8 (3.4-5.1) mmol/L Chloride 100 (98-107) mmol/L Carbon Dioxide 25 (22-32) mmol/L BUN 14 (9-20) mg/dL Creatinine 0.62 L (0.66-1.25) mg/dL Estimated GFR > 60 (>60) mL/min BUN/Creatinine Ratio 22.6 H (6-22) Glucose 150 H D (80-110) mg/dL Lactate (0.7-2.1) mmol/L Calcium 8.6 (8.4-10.2) mg/dL Magnesium (1.6-2.3) mg/dL Total Bilirubin 0.4 (0.2-1.3) mg/dL AST 23 (17-59) IU/L ALT 31 (<50) IU/L Alkaline Phosphatase 48 (38-126) U/L Total Creatine Kinase (55-170) U/L CK-MB (CK-2) CK-MB (CK-2) Rel Index Troponin I (0.01-0.034) ng/mL NT-Pro-B Natriuret Pep (<125) pg/mL Total Protein 7.2 (6.3-8.2) g/dL Albumin 3.8 (3.5-5.0) g/dL Globulin 3.4 (1.7-4.1) g/dL Albumin/Globulin Ratio 1.1 (1.0-2.8) Lipase (23-300) U/L Procalcitonin (<0.5) ng/mL Urine RBC (0-5/HPF) Urine WBC (0-5/HPF) Ur Squamous Epith Cells (0-5/HPF) Urine Bacteria (None) Ur Culture Indicated? Chlamy pneumoniae PCR (Not Detect) Adenovirus (PCR) (Not Detect) B. pertussis DNA (PCR) (Not Detecte) B.parapertussis DNA PCR (Not Detecte) Coronavirus OC43 (PCR) (Not Detect) Coronavirus HKU1 (PCR) (Not Detect) Coronavirus 229E (PCR) (Not Detect) SARS-CoV-2 (PCR) (Not Detecte) Coronavirus NL63 (PCR) (Not Detect) Human Metapneumovir PCR (Not Detect) Influenza Type A (PCR) (Not Detect) Influenza Type B (PCR) (Not Detect) M. pneumoniae (PCR) (Not Detect) Parainfluenza 1 (PCR) (Not Detect) Parainfluenza 2 (PCR) (Not Detect) Parainfluenza 3 (PCR) (Not Detect) Parainfluenza 4 (PCR) (Not Detect) RSV (PCR) (Not Detect) Entero/Rhino (PCR) (Not Detect) Point of Care Testing Glucose POC 188 Urine Dip Bedside Urine Glucose 1000 mg/dl Bedside Urine Bilirubin - Negative Bedside Urine Ketone + 15 Urine Specific [place] 1.010 Bedside Urine Occult Blood - Negative Bedside Urine pH 6.0 Bedside Urine Protein - Negative Bedside Urine Urobilinogen - Negative Bedside Urine Nitrite - Negative Bedside Urine Leukocytes - Negative Esterase Point of care testing: Point of Care Testing Glucose POC 188 Urine Dip Bedside Urine Glucose 1000 mg/dl Bedside Urine Bilirubin - Negative Bedside Urine Ketone + 15 Urine Specific [place] 1.010 Bedside Urine Occult Blood - Negative Bedside Urine pH 6.0 Bedside Urine Protein - Negative Bedside Urine Urobilinogen - Negative Bedside Urine Nitrite - Negative Bedside Urine Leukocytes - Negative Esterase MDM Narrative Medical decision making narrative: 1800 - [facility] no beds, [facility], no beds, [facility] no beds. On [facility] CC: 66-year-old male with worsening pneumonia and shortness of breath Complicating co-morbidities: Age, former smoker, lung cancer, hypertension Data collected from: Patient Medical records reviewed: Multiple prior records reviewed Differential considered, but not limited to: Pneumonia, exacerbation of COPD, CHF, pulmonary embolism, COVID, flu, versus other Exam documented above, pertinent findings include: Increased work of breathing, tachycardic, tachypneic, not significantly hypoxemic Lab Test results independently reviewed as above. Pertinent findings: No significant leukocytosis or true left shift though there is a relative increase in neutrophil percentage, ABG reassuring with room air PO2 of 80, patient with relative hyponatremia of 129, creatinine stable, other electrolytes stable. Significantly elevated D-dimer hence decision to pursue clinical change with CTA Independently reviewed EKG as above Repeat EKG at 8:15 p.m.. Sinus tachycardia rate [address] elevation or depression Imaging studies independently reviewed: No PE, right-sided hilar and mediastinal lymphadenopathy is chronic, right middle lobe and lower lobe consolidation worsened, Consultations: Discussed with primary care physician Dr. Flaherty, see details above May 06, 2022 at 5:00 a.m. s/w dr herr, hospitalist at [facility], he will accept patient however we will need to speak with Pulmonary on-call and if they agree for bronchoscopy and then he will admit Treatments:see above Re-evaluations: 05/06 -patient is not in any respiratory distress upon my return this morning, he is not hypoxemic. He is able to ambulate through the department with pulse ox staying in the 93 percentile. He has had some cough but is significantly improved over yesterday. I called his primary care (Dr. Flaherty) who has come and seen the patient and we sure the opinion that he no longer meets admission criteria let alone the need for transfer. He is going to arrange for close follow-up as an outpatient, requests that we switch his antibiotics to Augmentin for 2 weeks, he will work on outpatient evaluation and will coordinate with oncology <Dwight Gonsalez MD - Last Filed: 05/09/22 06:56> Lab Data Labs: Lab Results 05/05/22 05/05/22 05/05/22 Range/Units 10:05 10:05 10:05 WBC 10.9 (4.5-11.0) X10^3/uL RBC 4.26 L (4.5-5.9) X10^6/uL Hgb 13.1 L (13.5-17.5) g/dL Hct 39.2 L (41-53) % MCV 92.0 (80-100) fL MCH 30.8 (26-34) PG MCHC 33.5 (30-36) % RDW 12.9 (11.6-14.8) % Plt Count 326 (150-400) X10^3/uL Neut % (Auto) 77.5 H (50-75) % Lymph % (Auto) 11.4 L (25-40) % [place] % (Auto) 9.1 (3-14) % Eos % (Auto) 1.5 L (2-4) % Baso % (Auto) 0.5 (0-2) % Neut # (Auto) 8400 H (1933-2945) /uL Lymph # (Auto) 1200 (1398-4219) /uL [place] # (Auto) 1000 H (0-900) /uL Eos # (Auto) 200 (0-450) /uL Baso # (Auto) 100 (0-100) /uL PT 13.8 H (10.1-12.7) SECONDS INR 1.2 (0.9-1.3) D-Dimer 3432 H (<500) ng/ml ABG pH (7.35-7.45) ABG pCO2 (35-45) mmHg ABG pO2 (80-100) mmHg ABG HCO3 (23-27) mmol/L ABG Total CO2 (23-27) mmol/L ABG O2 Saturation (95-100) % ABG Base Excess (-2-3) mmol/L FiO2 Sodium 129 L (137-145) mmol/L Potassium 3.9 (3.4-5.1) mmol/L Chloride 94 L (98-107) mmol/L Carbon Dioxide 22 (22-32) mmol/L BUN 16 (9-20) mg/dL Creatinine 0.65 L (0.66-1.25) mg/dL Estimated GFR > 60 (>60) mL/min BUN/Creatinine Ratio 24.6 H (6-22) Glucose 313 H (80-110) mg/dL Lactate (0.7-2.1) mmol/L Calcium 8.6 (8.4-10.2) mg/dL Magnesium 2.0 (1.6-2.3) mg/dL Total Bilirubin 0.9 (0.2-1.3) mg/dL AST 27 (17-59) IU/L ALT 32 (<50) IU/L Alkaline Phosphatase 58 (38-126) U/L Total Creatine Kinase 32 L (55-170) U/L CK-MB (CK-2) TNP CK-MB (CK-2) Rel Index TNP Troponin I 0.041 H (0.01-0.034) ng/mL NT-Pro-B Natriuret Pep 52 (<125) pg/mL Total Protein 7.6 (6.3-8.2) g/dL Albumin 3.9 (3.5-5.0) g/dL Globulin 3.7 (1.7-4.1) g/dL Albumin/Globulin Ratio 1.1 (1.0-2.8) Lipase 37 (23-300) U/L Procalcitonin 0.10 (<0.5) ng/mL Urine RBC (0-5/HPF) Urine WBC (0-5/HPF) Ur Squamous Epith Cells (0-5/HPF) Urine Bacteria (None) Ur Culture Indicated? Chlamy pneumoniae PCR (Not Detect) Adenovirus (PCR) (Not Detect) B. pertussis DNA (PCR) (Not Detecte) B.parapertussis DNA PCR (Not Detecte) Coronavirus OC43 (PCR) (Not Detect) Coronavirus HKU1 (PCR) (Not Detect) Coronavirus 229E (PCR) (Not Detect) SARS-CoV-2 (PCR) (Not Detecte) Coronavirus NL63 (PCR) (Not Detect) Human Metapneumovir PCR (Not Detect) Influenza Type A (PCR) (Not Detect) Influenza Type B (PCR) (Not Detect) M. pneumoniae (PCR) (Not Detect) Parainfluenza 1 (PCR) (Not Detect) Parainfluenza 2 (PCR) (Not Detect) Parainfluenza 3 (PCR) (Not Detect) Parainfluenza 4 (PCR) (Not Detect) RSV (PCR) (Not Detect) Entero/Rhino (PCR) (Not Detect) 05/05/22 05/05/22 05/05/22 Range/Units 10:05 10:53 11:00 WBC (4.5-11.0) X10^3/uL RBC (4.5-5.9) X10^6/uL Hgb (13.5-17.5) g/dL Hct (41-53) % MCV (80-100) fL MCH (26-34) PG MCHC (30-36) % RDW (11.6-14.8) % Plt Count (150-400) X10^3/uL Neut % (Auto) (50-75) % Lymph % (Auto) (25-40) % [place] % (Auto) (3-14) % Eos % (Auto) (2-4) % Baso % (Auto) (0-2) % Neut # (Auto) (0601-0519) /uL Lymph # (Auto) (1036-8557) /uL [place] # (Auto) (0-900) /uL Eos # (Auto) (0-450) /uL Baso # (Auto) (0-100) /uL PT (10.1-12.7) SECONDS INR (0.9-1.3) D-Dimer (<500) ng/ml ABG pH (7.35-7.45) ABG pCO2 (35-45) mmHg ABG pO2 (80-100) mmHg ABG HCO3 (23-27) mmol/L ABG Total CO2 (23-27) mmol/L ABG O2 Saturation (95-100) % ABG Base Excess (-2-3) mmol/L FiO2 Sodium (137-145) mmol/L Potassium (3.4-5.1) mmol/L Chloride (98-107) mmol/L Carbon Dioxide (22-32) mmol/L BUN (9-20) mg/dL Creatinine (0.66-1.25) mg/dL Estimated GFR (>60) mL/min BUN/Creatinine Ratio (6-22) Glucose (80-110) mg/dL Lactate 1.3 (0.7-2.1) mmol/L Calcium (8.4-10.2) mg/dL Magnesium (1.6-2.3) mg/dL Total Bilirubin (0.2-1.3) mg/dL AST (17-59) IU/L ALT (<50) IU/L Alkaline Phosphatase (38-126) U/L Total Creatine Kinase (55-170) U/L CK-MB (CK-2) CK-MB (CK-2) Rel Index Troponin I (0.01-0.034) ng/mL NT-Pro-B Natriuret Pep (<125) pg/mL Total Protein (6.3-8.2) g/dL Albumin (3.5-5.0) g/dL Globulin (1.7-4.1) g/dL Albumin/Globulin Ratio (1.0-2.8) Lipase (23-300) U/L Procalcitonin (<0.5) ng/mL Urine RBC None seen (0-5/HPF) Urine WBC None seen (0-5/HPF) Ur Squamous Epith Cells 0-1 /hpf (0-5/HPF) Urine Bacteria Occasional (0-1) (None) Ur Culture Indicated? Cult not indicated Chlamy pneumoniae PCR Not detected (Not Detect) Adenovirus (PCR) Not detected (Not Detect) B. pertussis DNA (PCR) Not detected (Not Detecte) B.parapertussis DNA PCR Not detected (Not Detecte) Coronavirus OC43 (PCR) Not detected (Not Detect) Coronavirus HKU1 (PCR) Not detected (Not Detect) Coronavirus 229E (PCR) Not detected (Not Detect) SARS-CoV-2 (PCR) Not detected (Not Detecte) Coronavirus NL63 (PCR) Not detected (Not Detect) Human Metapneumovir PCR Not detected (Not Detect) Influenza Type A (PCR) Not detected (Not Detect) Influenza Type B (PCR) Not detected (Not Detect) M. pneumoniae (PCR) Not detected (Not Detect) Parainfluenza 1 (PCR) Not detected (Not Detect) Parainfluenza 2 (PCR) Not detected (Not Detect) Parainfluenza 3 (PCR) Not detected (Not Detect) Parainfluenza 4 (PCR) Not detected (Not Detect) RSV (PCR) Not detected (Not Detect) Entero/Rhino (PCR) Not detected (Not Detect) 05/05/22 05/06/22 05/06/22 Range/Units 11:46 04:48 04:48 WBC 6.6 (4.5-11.0) X10^3/uL RBC 4.06 L (4.5-5.9) X10^6/uL Hgb 12.7 L (13.5-17.5) g/dL Hct 37.1 L (41-53) % MCV 91.3 (80-100) fL MCH 31.4 (26-34) PG MCHC 34.4 (30-36) % RDW 12.8 (11.6-14.8) % Plt Count 301 (150-400) X10^3/uL Neut % (Auto) 57.1 D (50-75) % Lymph % (Auto) 26.2 (25-40) % [place] % (Auto) 12.4 (3-14) % Eos % (Auto) 3.3 (2-4) % Baso % (Auto) 1.0 (0-2) % Neut # (Auto) 3800 (2465-6787) /uL Lymph # (Auto) 1700 (5322-7328) /uL [place] # (Auto) 800 (0-900) /uL Eos # (Auto) 200 (0-450) /uL Baso # (Auto) 100 (0-100) /uL PT (10.1-12.7) SECONDS INR (0.9-1.3) D-Dimer (<500) ng/ml ABG pH 7.47 H (7.35-7.45) ABG pCO2 32.5 L (35-45) mmHg ABG pO2 80 (80-100) mmHg ABG HCO3 24 (23-27) mmol/L ABG Total CO2 25 (23-27) mmol/L ABG O2 Saturation 97 (95-100) % ABG Base Excess 1.0 (-2-3) mmol/L FiO2 21 Sodium 134 L (137-145) mmol/L Potassium 3.8 (3.4-5.1) mmol/L Chloride 100 (98-107) mmol/L Carbon Dioxide 25 (22-32) mmol/L BUN 14 (9-20) mg/dL Creatinine 0.62 L (0.66-1.25) mg/dL Estimated GFR > 60 (>60) mL/min BUN/Creatinine Ratio 22.6 H (6-22) Glucose 150 H D (80-110) mg/dL Lactate (0.7-2.1) mmol/L Calcium 8.6 (8.4-10.2) mg/dL Magnesium (1.6-2.3) mg/dL Total Bilirubin 0.4 (0.2-1.3) mg/dL AST 23 (17-59) IU/L ALT 31 (<50) IU/L Alkaline Phosphatase 48 (38-126) U/L Total Creatine Kinase (55-170) U/L CK-MB (CK-2) CK-MB (CK-2) Rel Index Troponin I (0.01-0.034) ng/mL NT-Pro-B Natriuret Pep (<125) pg/mL Total Protein 7.2 (6.3-8.2) g/dL Albumin 3.8 (3.5-5.0) g/dL Globulin 3.4 (1.7-4.1) g/dL Albumin/Globulin Ratio 1.1 (1.0-2.8) Lipase (23-300) U/L Procalcitonin (<0.5) ng/mL Urine RBC (0-5/HPF) Urine WBC (0-5/HPF) Ur Squamous Epith Cells (0-5/HPF) Urine Bacteria (None) Ur Culture Indicated? Chlamy pneumoniae PCR (Not Detect) Adenovirus (PCR) (Not Detect) B. pertussis DNA (PCR) (Not Detecte) B.parapertussis DNA PCR (Not Detecte) Coronavirus OC43 (PCR) (Not Detect) Coronavirus HKU1 (PCR) (Not Detect) Coronavirus 229E (PCR) (Not Detect) SARS-CoV-2 (PCR) (Not Detecte) Coronavirus NL63 (PCR) (Not Detect) Human Metapneumovir PCR (Not Detect) Influenza Type A (PCR) (Not Detect) Influenza Type B (PCR) (Not Detect) M. pneumoniae (PCR) (Not Detect) Parainfluenza 1 (PCR) (Not Detect) Parainfluenza 2 (PCR) (Not Detect) Parainfluenza 3 (PCR) (Not Detect) Parainfluenza 4 (PCR) (Not Detect) RSV (PCR) (Not Detect) Entero/Rhino (PCR) (Not Detect) Point of Care Testing Glucose POC 188 Urine Dip Bedside Urine Glucose 1000 mg/dl Bedside Urine Bilirubin - Negative Bedside Urine Ketone + 15 Urine Specific [place] 1.010 Bedside Urine Occult Blood - Negative Bedside Urine pH 6.0 Bedside Urine Protein - Negative Bedside Urine Urobilinogen - Negative Bedside Urine Nitrite - Negative Bedside Urine Leukocytes - Negative Esterase Point of care testing: Point of Care Testing Glucose POC 188 Urine Dip Bedside Urine Glucose 1000 mg/dl Bedside Urine Bilirubin - Negative Bedside Urine Ketone + 15 Urine Specific [place] 1.010 Bedside Urine Occult Blood - Negative Bedside Urine pH 6.0 Bedside Urine Protein - Negative Bedside Urine Urobilinogen - Negative Bedside Urine Nitrite - Negative Bedside Urine Leukocytes - Negative Esterase MDM Narrative Medical decision making narrative: 1800 - [facility] no beds, [facility], no beds, [facility] no beds. On [facility] CC: 66-year-old male with worsening pneumonia and shortness of breath Complicating co-morbidities: Age, former smoker, lung cancer, hypertension Data collected from: Patient Medical records reviewed: Multiple prior records reviewed Differential considered, but not limited to: Pneumonia, exacerbation of COPD, CHF, pulmonary embolism, COVID, flu, versus other Exam documented above, pertinent findings include: Increased work of breathing, tachycardic, tachypneic, not significantly hypoxemic Lab Test results independently reviewed as above. Pertinent findings: No significant leukocytosis or true left shift though there is a relative increase in neutrophil percentage, ABG reassuring with room air PO2 of 80, patient with relative hyponatremia of 129, creatinine stable, other electrolytes stable. Significantly elevated D-dimer hence decision to pursue clinical change with CTA Independently reviewed EKG as above Repeat EKG at 8:15 p.m.. Sinus tachycardia rate [address] elevation or depression Imaging studies independently reviewed: No PE, right-sided hilar and mediastinal lymphadenopathy is chronic, right middle lobe and lower lobe consolidation worsened, Consultations: Discussed with primary care physician Dr. Flaherty, see details above May 06, 2022 at 5:00 a.m. s/w dr herr, hospitalist at [facility], he will accept patient however we will need to speak with Pulmonary on-call and if they agree for bronchoscopy and then he will admit Treatments: Re-evaluations: Discussion: Disposition: see below, along with detailed discharge instructions that have been reviewed with patient as well as indications for ED re-evaluation and additional outpatient follow up Critical Care Time <Jefe Plascencia DO - Last Filed: 05/06/22 15:59> Critical Care Time Critical Care Time: Yes Total Critical Care Time: 35 Attestation: The high probability of a clinically significant, sudden or life threatening deterioration of the [Pulm/CV] system(s) required my full and direct attention, intervention and personal management. The aggregate critical care time was [35] minutes. This time is in addition to time spent performing reported procedures but includes the following: [x] Data Review and interpretation [x] Patient assessment and monitoring of vital signs [x] Documentation []x Medication orders and management Discharge Plan Departure Patient Disposition: Home Clinical Impression: Multifocal pneumonia, Failure of outpatient treatment Instructions: DI for Cough -- Adult Activity Restrictions/Additional Instructions: *You have been diagnosed with [Right Lower Lobe Pneumonia ] *What to do: *Please continue to take your regular medications as directed. [ x] New medication prescriptions sent to your pharmacy: [[facility] ] [ ] New medication written as a paper prescription [ ] No new medications given *Please follow up with Dr. Flaherty on 05/09 at 2pm *Return to Emergency Department if you should have any new, worsening or concerning symptoms, such as [fever greater than 101 F, shaking chills, worsening pain, persistent vomiting or other bothersome symptoms] Prescriptions: New amoxicillin-pot clavulanate 875-125 mg tablet 1 tab PO Q12H Qty: 28 0RF No Action benzonatate 200 mg capsule 200 mg PO TID PRN (Reason: cough) Qty: 30 1RF losartan 25 mg tablet 25 mg PO DAILY Qty: 90 2RF Hold Instructions: hypotensive cyclobenzaprine 10 mg tablet 10 mg PO TID PRN (Reason: muscle spasm) Qty: 30 1RF sildenafil 100 mg tablet 50 - 100 mg PO DAILY PRN (Reason: sexual activity) Qty: 10 3RF Rx Instructions: administer 30 minutes to 4 hours before activity tramadol 50 mg tablet 50 mg PO TID PRN (Reason: pain) Qty: 45 1RF oxycodone-acetaminophen 10-325 mg Tablet 1 tab PO Q6H PRN (Reason: cancer pain) Qty: 60 0RF aspirin 81 mg Tablet,Chewable 81 mg PO DAILY prednisone 5 mg tablet 17.5 mg PO DAILY Referrals: Tulio Flaherty MD [Primary Care Provider] - Stand Alone Forms: Patient Portal/API
[2022-05-05 10:16] LABS: Add Manual Diff / Slide Review NO; Basophils Absolute Auto 100 /uL (0-100); Basophils Percent Auto 0.5 % (0-2); Eosinophils Absolute Auto 200 /uL (0-450); Eosinophils Percent Auto 1.5 % (2-4); Hematocrit 39.2 % (41-53); Hemoglobin 13.1 g/dL (13.5-17.5); Lymphocytes Absolute Auto 1200 /uL (1100-4500); Lymphocytes Percent Auto 11.4 % (25-40); Mean Corpuscular HGB Conc 33.5 % (30-36); Mean Corpuscular Hemoglobin 30.8 PG (26-34); Monocytes Absolute Auto 1000 /uL (0-900); Monocytes Percent Auto 9.1 % (3-14); Neutrophils Absolute Auto 8400 /uL (1500-7000); Neutrophils Percent Auto 77.5 % (50-75); Platelet Count 326 X10^3/uL (150-400); Red Blood Cell Count 4.26 X10^6/uL (4.5-5.9); Red Cell Distribution Width 12.9 % (11.6-14.8); White Blood Cell Count 10.9 X10^3/uL (4.5-11.0)
[2022-05-05 10:24] LABS: INR 1.2 (0.9-1.3); Prothrombin Time 13.8 SECONDS (10.1-12.7)
[2022-05-05 10:25] LABS: D Dimer 3432 ng/ml (<500)
[2022-05-05 10:30] LABS: Lactate (Lactic Acid) 1.3 mmol/L (0.7-2.1)
[2022-05-05 10:33] LABS: Alanine Aminotransferase 32 IU/L (<50); Albumin 3.9 g/dL (3.5-5.0); Albumin Globulin Ratio 1.1 (1.0-2.8); Alkaline Phosphatase 58 U/L (38-126); Aspartate Aminotransferase 27 IU/L (17-59); BUN Creatinine Ratio 24.6 (6-22); Bilirubin Total 0.9 mg/dL (0.2-1.3); Blood Urea Nitrogen 16 mg/dL (9-20); Calcium 8.6 mg/dL (8.4-10.2); Carbon Dioxide 22 mmol/L (22-32); Chloride 94 mmol/L (98-107); Creatine Kinase 32 U/L (55-170); Estimated Glomerular Filt Rate > 60 mL/min (>60); Globulin 3.7 g/dL (1.7-4.1); Glucose 313 mg/dL (80-110); Lipase 37 U/L (23-300); Potassium 3.9 mmol/L (3.4-5.1); Sodium 129 mmol/L (137-145); Total Protein 7.6 g/dL (6.3-8.2)
--- NOTE | 2022-05-05 10:40 | DI.CT.S_ITS ---
PROCEDURE: CT ANGIO CHEST PE PROTOCOL INDICATIONS: tachycardia, SOB, critical DDImer (>3000) TECHNIQUE: After the administration of intravenous contrast, 2 mm thick sections acquired from the pulmonary apices to the posterior costophrenic angles. 3-dimensional maximum intensity projection (MIP) coronal and sagittal reformats were then acquired through the thorax. For radiation dose reduction, the following was used: automated exposure control, adjustment of mA and/or kV according to patient size. COMPARISON: [facility], CT, CT CHEST W CON, 04/24/2022, 10:04. FINDINGS: No pulmonary artery filling defect to indicate pulmonary embolism. Circumferential right pleural thickening is similar to recent prior study. Right hilar and right mediastinal lymphadenopathy is similar. Right middle lobe and lower lobe consolidation has worsened. Small right pleural effusion is similar. Few tiny left lung pulmonary nodules unchanged. No pleural effusion on the left. Normal heart size. IMPRESSION: When compared with recent prior study the nodular pleural thickening is not significantly changed but remains suspicious for possible metastatic disease. Increased irregular consolidation and ground-glass opacities in the right lung are most likely infectious but may represent an element of malignant neoplastic progression as well. Right hilar and mediastinal lymphadenopathy is similar. Dictated by: Jones Hernandez M.D. on 05/05/2022 at 11:07 Approved by: Jones Hernandez M.D. on 05/05/2022 at 11:09
[2022-05-05 10:44] LABS: NT-proBNP (BNP-Adult 18+) 52 pg/mL (<125); Troponin I 0.041 ng/mL (0.01-0.034)
[2022-05-05 10:59] LABS: HEMOLYSIS < 15 (0-50)
[2022-05-05 11:47] LABS: Adenovirus Not Detected (Not Detect); B. parapertussis Not Detected (Not Detecte); Bordetella pertussis Not Detected (Not Detecte); Chlamydophila pneumoniae Not Detected (Not Detect); Coronavirus 229E Not Detected (Not Detect); Coronavirus HKU1 Not Detected (Not Detect); Coronavirus NL 63 Not Detected (Not Detect); Coronavirus OC43 Not Detected (Not Detect); Human Metapneumovirus Not Detected (Not Detect); Human Rhinovirus/Enterovirus Not Detected (Not Detect); Influenza A Not Detected (Not Detect); Influenza B Not Detected (Not Detect); Mycoplasma pneumoniae Not Detected (Not Detect); Parainfluenza Virus 1 Not Detected (Not Detect); Parainfluenza Virus 2 Not Detected (Not Detect); Parainfluenza Virus 3 Not Detected (Not Detect); Parainfluenza Virus 4 Not Detected (Not Detect); Respiratory Syncytial Virus Not Detected (Not Detect); SARS- CoV-2 Not Detected (Not Detecte)
[2022-05-05] MEDS: SODIUM CHLORIDE 0.9% 1,000 ML 1000 ML IV (11:58)
[2022-05-05 11:59] LABS: HCO3 ABG 24 mmol/L (23-27); PCO2 ABG 32.5 mmHg (35-45); PO2 ABG 80 mmHg (80-100); pH ABG 7.47 (7.35-7.45)
[2022-05-05 12:00] LABS: Fractionated Inspired Oxygen 21; Oxygen Saturation ABG 97 % (95-100); TCO2 ABG 25 mmol/L (23-27)
[2022-05-05 12:21] LABS: Bacteria Urine Occasional (0-1); Culture Indicated Urine Cult Not Indicated; RBC Urine None Seen (0-5/HPF); Squamous Epithelial Cell Urine 0-1 /HPF (0-5/HPF); WBC Urine None Seen (0-5/HPF)
[2022-05-05] MEDS: PIPERACILLIN/TAZO 4.5 GM in SODIUM CHLORIDE 0.9% 100 ML IV (12:29)
[2022-05-05] MEDS: SODIUM CHLORIDE 0.9% 1,000 ML 125 ML IV (13:21)
--- NOTE | 2022-05-05 18:20 | PC.NURSE ---
xfer: [facility] [place], /[facility], waitlisted at all. No waitlist at [facility] and [facility]. left @ [facility] @ 18:15
--- NOTE | 2022-05-05 19:48 | PC.NURSE ---
Pt is lying down when this RN walks in and rubbing his right chest moaning in 5/10 right sided chest pain. Pt states he feels wonky, and lightheaded. Vitals taken and blood sugar POC as well. 119/80, 115, 95% RA, R19. Blood sugar 327. Provider aware. Will medicate for pain as per MAR. Per provider repeat blood sugar in 2 hours.
[2022-05-05] MEDS: HYDROCODONE/ACET 5/325 TABLET 2 TAB PO (19:53)
--- NOTE | 2022-05-05 20:57 | PC.NURSE ---
Pt changed to gown, states he feels uncomfortable and hot. fan obtained. Denies pain. shortness of breath w/ exertion noted. head of bed elevated w/ resolution of symptoms.
[2022-05-05] MEDS: diphenhydrAMINE 25 MG TABLET PO (22:11)
[2022-05-06] VITALS (31 sets, daily range): BP systolic 129–135; BP diastolic 77–87; PULSE 94–110; RESP 12–46; O2SAT 93–96
[2022-05-06] MEDS: HYDROCODONE/ACET 5/325 TABLET 2 TAB PO (04:49)
[2022-05-06 05:01] LABS: Add Manual Diff / Slide Review NO; Basophils Absolute Auto 100 /uL (0-100); Eosinophils Absolute Auto 200 /uL (0-450); Eosinophils Percent Auto 3.3 % (2-4); Hematocrit 37.1 % (41-53); Hemoglobin 12.7 g/dL (13.5-17.5); Lymphocytes Absolute Auto 1700 /uL (1100-4500); Lymphocytes Percent Auto 26.2 % (25-40); Mean Corpuscular HGB Conc 34.4 % (30-36); Mean Corpuscular Hemoglobin 31.4 PG (26-34); Mean Corpuscular Volume 91.3 fL (80-100); Monocytes Absolute Auto 800 /uL (0-900); Monocytes Percent Auto 12.4 % (3-14); Neutrophils Absolute Auto 3800 /uL (1500-7000); Neutrophils Percent Auto 57.1 % (50-75); Platelet Count 301 X10^3/uL (150-400); Red Blood Cell Count 4.06 X10^6/uL (4.5-5.9); Red Cell Distribution Width 12.8 % (11.6-14.8); White Blood Cell Count 6.6 X10^3/uL (4.5-11.0)
[2022-05-06 05:09] LABS: Alanine Aminotransferase 31 IU/L (<50); Albumin 3.8 g/dL (3.5-5.0); Albumin Globulin Ratio 1.1 (1.0-2.8); Alkaline Phosphatase 48 U/L (38-126); Aspartate Aminotransferase 23 IU/L (17-59); BUN Creatinine Ratio 22.6 (6-22); Bilirubin Total 0.4 mg/dL (0.2-1.3); Blood Urea Nitrogen 14 mg/dL (9-20); Calcium 8.6 mg/dL (8.4-10.2); Carbon Dioxide 25 mmol/L (22-32); Chloride 100 mmol/L (98-107); Estimated Glomerular Filt Rate > 60 mL/min (>60); Globulin 3.4 g/dL (1.7-4.1); Glucose 150 mg/dL (80-110); HEMOLYSIS < 15 (0-50); Potassium 3.8 mmol/L (3.4-5.1); Sodium 134 mmol/L (137-145); Total Protein 7.2 g/dL (6.3-8.2)
== END 2022-05-06 09:30 | disposition home or self-care (01) ==
PROVIDERS: Emergency Medicine; Emergency Provider Emergency Medicine; PCP Internal Medicine
DX: J18.9 Pneumonia, unspecified organism (principal); C34.91 Malignant neoplasm of unspecified part of right bronchus or lung; Z20.822 Contact with and (suspected) exposure to COVID-19; R06.02 Shortness of breath
CPT/HCPCS: 36415; 36600; 71045; 71275; 80053; 81003; 81015; 82550; 82805; 82962; 83605; 83690; 83735; 83880; 84145; 84484; 85025; 85379; 85610; 87040; 87070; 87205; 87633; 93005; 93010; 96361; 96365; 99284; 99285; J2543; Q9967

== ENCOUNTER → 2022-05-13 10:47 | Outpatient (CLI) | payer MEDICARE, OTHER, SELFPAY ==
[2022-03-18 11:21] VITALS: BMI 31.9
--- NOTE | 2022-05-13 10:49 | DI.MRI.S_ITS ---
PROCEDURE: MR HEAD/BRAIN WO/W CON INDICATIONS: lung cancer TECHNIQUE: Noncontrast axial T1 spin echo, axial T2 fast spin echo, sagittal and axial FLAIR, coronal T2 fast spin echo, axial gradient echo, axial diffusion and ADC through the brain. After the administration of contrast, axial and coronal and sagittal T1 spin echo with fat saturation through the brain. COMPARISON: [facility], CT, CT ANGIO CHEST PE PROTOCOL, 05/05/2022, 10:42. [facility], MR, MR HEAD/BRAIN WO/W CON, 03/15/2020, 7:04. [facility], MR, MR HEAD/BRAIN WO/W CON, 02/28/2021, 14:09. FINDINGS: Image quality: This examination is limited by involuntary motion artifact. CSF spaces: Basal cisterns are patent. No extra-axial fluid collections. Ventricles are normal in size and shape. Brain: No midline shift. No intracranial bleeds or masses. No abnormal intracranial enhancement. There is cerebral volume loss for age. There is periventricular white matter chronic small vessel ischemic change. The brainstem appears normal. Diffusion-weighted images demonstrate no acute ischemic insults. No chronic ischemic insults. Normal intravascular flow voids are present. Skull and face: Calvarial marrow is normal in signal. Orbits appear normal. Note is made of bilateral lens replacements. Sinuses: Sinuses and mastoids appear clear. IMPRESSION: No masses or abnormal enhancement can be seen to suggest intracranial metastasis. Dictated by: Mark Anthony Baron M.D. on 05/13/2022 at 11:12 Approved by: Mark Anthony Baron M.D. on 05/13/2022 at 11:13
== END ==
PROVIDERS: PCP Internal Medicine; Referring Provider Internal Medicine Hematology & Oncology; Visit Provider Internal Medicine Hematology & Oncology
DX: R51.9 Headache, unspecified (principal); C34.91 Malignant neoplasm of unspecified part of right bronchus or lung
CPT/HCPCS: 70553

== ENCOUNTER 2022-06-09 14:39 | Emergency (ER) | payer MEDICARE, OTHER, SELFPAY ==
[2022-03-18 11:21] VITALS: BMI 31.9
[2022-06-09] VITALS (10 sets, daily range): BP systolic 108–140; BP diastolic 68–81; PULSE 93–110; RESP 11–29; TEMP 36.4; O2SAT 94–98; BMI 31.5
--- NOTE | 2022-06-09 15:01 | DI.RAD.S_ITS ---
PROCEDURE: XR CHEST 1V INDICATIONS: chest pain TECHNIQUE: One view of the chest was acquired. COMPARISON: [facility], CR, XR CHEST 1V, 05/05/2022, 10:03. FINDINGS: Surgical changes and devices: None. Lungs and pleura: Hazy opacity over right hemithorax is again seen not significantly changed from previous study. Small right pleural effusion is also present. No gross pneumothorax. Left lung is clear . Mediastinum: Mediastinal contours appear normal. Heart size is normal. Bones and chest wall: No suspicious bony lesions. Overlying soft tissues appear unremarkable. IMPRESSION: Persistent hazy opacities in right hemithorax suggestive of small right pleural effusion and right-sided patchy infiltrate/atelectasis. No gross pneumothorax. Dictated by: Shadi Martinez M.D. on 06/09/2022 at 15:40 Approved by: Shadi Martinez M.D. on 06/09/2022 at 15:40
[2022-06-09 15:23] LABS: Add Manual Diff / Slide Review NO; Basophils Absolute Auto 0 /uL (0-100); Basophils Percent Auto 0.6 % (0-2); Eosinophils Absolute Auto 100 /uL (0-450); Eosinophils Percent Auto 1.4 % (2-4); Hematocrit 40.8 % (41-53); Lymphocytes Absolute Auto 900 /uL (1100-4500); Lymphocytes Percent Auto 12.3 % (25-40); Mean Corpuscular HGB Conc 34.4 % (30-36); Mean Corpuscular Hemoglobin 30.8 PG (26-34); Mean Corpuscular Volume 89.7 fL (80-100); Monocytes Absolute Auto 500 /uL (0-900); Monocytes Percent Auto 7.1 % (3-14); Neutrophils Absolute Auto 5800 /uL (1500-7000); Neutrophils Percent Auto 78.6 % (50-75); Platelet Count 302 X10^3/uL (150-400); Red Blood Cell Count 4.55 X10^6/uL (4.5-5.9); Red Cell Distribution Width 13.5 % (11.6-14.8); White Blood Cell Count 7.3 X10^3/uL (4.5-11.0)
[2022-06-09 15:28] LABS: INR 1.1 (0.9-1.3); Prothrombin Time 12.7 SECONDS (10.1-12.7)
[2022-06-09 15:31] LABS: PTT Partial Thromboplastin Tim 32 SECONDS (26-36)
[2022-06-09 15:36] LABS: Alanine Aminotransferase 43 IU/L (<50); Alkaline Phosphatase 69 U/L (38-126); Aspartate Aminotransferase 28 IU/L (17-59); BUN Creatinine Ratio 23.1 (6-22); Bilirubin Total 0.5 mg/dL (0.2-1.3); Blood Urea Nitrogen 15 mg/dL (9-20); Calcium 9.4 mg/dL (8.4-10.2); Carbon Dioxide 23 mmol/L (22-32); Chloride 98 mmol/L (98-107); Creatine Kinase 22 U/L (55-170); Estimated Glomerular Filt Rate > 60 mL/min (>60); Glucose 263 mg/dL (80-110); HEMOLYSIS < 15 (0-50); Lipase 37 U/L (23-300); Potassium 4.5 mmol/L (3.4-5.1); Sodium 131 mmol/L (137-145)
[2022-06-09 15:48] LABS: Troponin I < 0.012 ng/mL (0.01-0.034)
--- NOTE | 2022-06-09 17:36 | ED_ITS ---
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 He states he was trying to lay down for a nap his came to bring him a juice drink and states he sat up, had pain which slowly resolved and had completely resolved an hour after arrival to the emergency department. He denies fevers or chills. He states he is had shortness of breath that has been persistent since March with a persistent cough that is sometimes he describes as quite violent occasionally he has streaks of blood. He states it started out as yellow productive sputum but has changed clear color. Patient denies any chest pain or pressure at this time. Patient denies any worsening shortness of breath. He states his cough has been persistent but not worsening. He denies nausea or vomiting, no swelling in his extremities. He states he is chronic constipation from narcotics but is stooling regularly. No dysuria urgency or frequency. Patient states he has been on 3 rounds of antibiotics for potential infection, states he takes Mucinex daily, Tylenol and oxycodone he is on losar munson he is on 10 mg prednisone was weaned down from 15 a week ago for adrenal insufficiency which he states resulted from Keytruda after his chemotherapy. He did stop his aspirin 5 days ago in anticipation of a CT-guided biopsy tomorrow for a new pulmonary nodule. He is scheduled to have a port placed on June 17 and is anticipating restarting chemotherapy. He states he is allergic to bees, penicillin and hydrocodone he can tolerate other narcotics. Patient states Dr. Alcocer as his oncologist and Dr. Flaherty is his primary care. Related Data Home Medications Medication Instructions Recorded Confirmed aspirin 81 mg chewable tablet 81 mg PO DAILY 02/07/20 05/30/22 guaifenesin 1,200 mg tablet, 1,200 mg PO BID 05/09/22 05/30/22 extended release 12 hr (Mucinex) Previous Rx's Medication Instructions Recorded sildenafil 100 mg tablet 50 - 100 mg PO DAILY PRN sexual 09/13/21 activity #10 tabs losartan 25 mg tablet 25 mg PO DAILY #90 tabs 10/14/21 benzonatate 200 mg capsule 200 mg PO TID PRN cough #30 caps 04/04/22 tramadol 50 mg tablet 50 mg PO TID PRN pain #45 tabs 04/15/22 cyclobenzaprine 10 mg tablet 10 mg PO TID PRN muscle spasm #30 05/01/22 tabs prednisone 5 mg tablet See Rx Instructions .Route 05/19/22 .COMPLEX adrenal insufficicny #100 tabs oxycodone-acetaminophen 10 mg-325 1 tab PO Q8H PRN cancer pain #42 06/02/22 mg tablet tabs Allergies Allergy/AdvReac Type Severity Reaction Status Date / Time bee venom protein (honey bee) Allergy Intermediate Hives Verified 06/09/22 15:00 Penicillins Allergy Intermediate Hives Verified 06/09/22 15:00 hydrocodone Allergy ITCHING Verified 06/09/22 15:00 Review of Systems Review of Systems ROS Unobtainable: All systems reviewed & are unremarkable except as noted in HPI and below Patient History Medical History Adenocarcinoma of right lung, stage 4 Adrenal insufficiency BPH w urinary obs/LUTS COVID-19 Diabetes History of colonic polyps Hypertension Tobacco consumption Surgical History H/O hand surgery (~2013) H/O shoulder surgery (~1997) History of lung surgery History of vascular access device Family History Father Prostate cancer Social History household members: spouse Smoking Status: Former smoker alcohol intake: current substance use type: does not use Smoking Status: Former smoker alcohol intake frequency: 3 or more drinks per day Alcohol type: wine Substance Use Type: does not use Exam Narrative Exam Narrative: GENERAL: Alert and oriented x three, male in mild distress HEENT: Head normocephalic, atraumatic, EOMI, pupils reactive, face symmetric, moist mucous membranes NECK: Supple, full range of motion CARDIOVASCULAR: Regular rate and rhythm without murmurs, rubs or gallops. Swell ing bilateral lower extremities. RESPIRATORY: Breath sounds equal bilaterally, no wheezes rales or rhonchi. Patient's speaks in full sentences. He does have a harsh cough intermittently. Patient had some clear sputum. ABDOMEN: Soft, nontender. Normoactive bowel sounds all 4 quadrants. No guardi ng or rebound, rigidity, no mass : No CVA tenderness EXTREMITIES: Normal range of motion, no clubbing or edema. Neurovascularly intact NEUROLOGICAL: Cranial nerves II through XII grossly intact. Moving all extremities SKIN: Warm, dry, no petechiae, no rashes or lesions. Initial Vital Signs Initial Vital Signs: Vital Signs Temperature 97.6 F 06/09/22 14:54 Pulse Rate 106 H 06/09/22 14:54 Respiratory Rate 24 06/09/22 14:54 Blood Pressure 115/79 06/09/22 14:54 Pulse Oximetry 96 06/09/22 14:54 Oxygen Delivery Method Room Air 06/09/22 14:54 Scores PERC Score Age greater than or equal to 50 years: Yes Heart rate greater than or equal to 100 bpm: Yes Room Air O2 Sat less than 95%: No Unilateral leg swelling: No Recent trauma or surgery: No Hemoptysis: Yes Prior PE or DVT: No Hormone Use: No Total PERC Score: 3 Course Orders Ordered: ED Orders 06/09/22 15:01 XR chest 1V Stat COVID19 -Nasal RAPID Stat EKG-12 Lead Stat 06/09/22 15:15 Complete Blood Count AUTO DIFF Stat Comprehensive Metabolic Panel Stat Lipase Stat Magnesium Stat PTT Partial Thromboplastin Terry Stat Prothrombin Time INR Stat Troponin & CK Cardiac Panel Stat 06/09/22 17:48 CT angio chest PE protocol Stat 06/09/22 17:50 Trop I [Troponin I] Stat 06/09/22 17:51 EKG-12 Lead Routine Discontinued Medications Aspirin (Aspirin 81 Mg Chew Tab) 324 mg PO NOW ONE Stop: 06/09/22 15:02 Last Admin: 06/09/22 17:48 Dose: Not Given Documented By: NOLA Oxycodone HCl (Oxycodone Ir 5 Mg Tablet) 5 mg PO NOW ONE Stop: 06/09/22 17:38 Last Admin: 06/09/22 17:48 Dose: 5 mg Documented By: NOLA Oxycodone/Acetaminophen (Oxycodone/Acetaminophen 5/325 Tablet) 1 tab PO NOW ONE Stop: 06/09/22 17:37 Last Admin: 06/09/22 17:48 Dose: 1 tab Documented By: NOLA Vital Signs Vital signs: Vital Signs - 8 hr 06/09/22 14:54 06/09/22 15:36 06/09/22 15:37 Temperature 97.6 F Pulse Rate 106 H 106 H 104 H Respiratory Rate 24 29 H 25 H Blood Pressure 115/79 Pulse Oximetry 96 97 97 Oxygen Delivery Method Room Air 06/09/22 15:37 06/09/22 16:00 06/09/22 16:30 Temperature Pulse Rate 110 H Respiratory Rate 27 H Blood Pressure 130/78 140/81 Pulse Oximetry 97 Oxygen Delivery Method 06/09/22 16:30 06/09/22 17:00 06/09/22 17:00 Temperature Pulse Rate 101 H 96 H Respiratory Rate 18 11 L Blood Pressure 111/68 Pulse Oximetry 96 96 Oxygen Delivery Method 06/09/22 17:30 06/09/22 17:30 06/09/22 18:00 Temperature Pulse Rate 95 H 93 H Respiratory Rate 25 H 24 Blood Pressure 108/69 Pulse Oximetry 97 98 Oxygen Delivery Method MDM - Chest Pain Lab Data 06/09/22 15:15 06/09/22 15:15 Labs: Lab Results 06/09/22 06/09/22 06/09/22 Range/Units 15:15 15:15 15:15 WBC 7.3 (4.5-11.0) X10^3/uL RBC 4.55 (4.5-5.9) X10^6/uL Hgb 14.0 (13.5-17.5) g/dL Hct 40.8 L (41-53) % MCV 89.7 (80-100) fL MCH 30.8 (26-34) PG MCHC 34.4 (30-36) % RDW 13.5 (11.6-14.8) % Plt Count 302 (150-400) X10^3/uL Neut % (Auto) 78.6 H (50-75) % Lymph % (Auto) 12.3 L (25-40) % Campbell % (Auto) 7.1 (3-14) % Eos % (Auto) 1.4 L (2-4) % Baso % (Auto) 0.6 (0-2) % Neut # (Auto) 5800 (8930-5055) /uL Lymph # (Auto) 900 L (8454-3799) /uL Campbell # (Auto) 500 (0-900) /uL Eos # (Auto) 100 (0-450) /uL Baso # (Auto) 0 (0-100) /uL PT 12.7 (10.1-12.7) SECONDS INR 1.1 (0.9-1.3) APTT 32 (26-36) SECONDS Sodium 131 L (137-145) mmol/L Potassium 4.5 (3.4-5.1) mmol/L Chloride 98 (98-107) mmol/L Carbon Dioxide 23 (22-32) mmol/L BUN 15 (9-20) mg/dL Creatinine 0.65 L (0.66-1.25) mg/dL Estimated GFR > 60 (>60) mL/min BUN/Creatinine Ratio 23.1 H (6-22) Glucose 263 H (80-110) mg/dL Calcium 9.4 (8.4-10.2) mg/dL Magnesium 2.0 (1.6-2.3) mg/dL Total Bilirubin 0.5 (0.2-1.3) mg/dL AST 28 (17-59) IU/L ALT 43 (<50) IU/L Alkaline Phosphatase 69 (38-126) U/L Total Creatine Kinase 22 L (55-170) U/L CK-MB (CK-2) TNP CK-MB (CK-2) Rel Index TNP Troponin I < 0.012 (0.01-0.034) ng/mL Total Protein 8.0 (6.3-8.2) g/dL Albumin 4.0 (3.5-5.0) g/dL Globulin 4.0 (1.7-4.1) g/dL Albumin/Globulin Ratio 1.0 (1.0-2.8) Lipase 37 (23-300) U/L 06/09/22 Range/Units 17:50 WBC (4.5-11.0) X10^3/uL RBC (4.5-5.9) X10^6/uL Hgb (13.5-17.5) g/dL Hct (41-53) % MCV (80-100) fL MCH (26-34) PG MCHC (30-36) % RDW (11.6-14.8) % Plt Count (150-400) X10^3/uL Neut % (Auto) (50-75) % Lymph % (Auto) (25-40) % Campbell % (Auto) (3-14) % Eos % (Auto) (2-4) % Baso % (Auto) (0-2) % Neut # (Auto) (6117-6282) /uL Lymph # (Auto) (7511-6547) /uL Campbell # (Auto) (0-900) /uL Eos # (Auto) (0-450) /uL Baso # (Auto) (0-100) /uL PT (10.1-12.7) SECONDS INR (0.9-1.3) APTT (26-36) SECONDS Sodium (137-145) mmol/L Potassium (3.4-5.1) mmol/L Chloride (98-107) mmol/L Carbon Dioxide (22-32) mmol/L BUN (9-20) mg/dL Creatinine (0.66-1.25) mg/dL Estimated GFR (>60) mL/min BUN/Creatinine Ratio (6-22) Glucose (80-110) mg/dL Calcium (8.4-10.2) mg/dL Magnesium (1.6-2.3) mg/dL Total Bilirubin (0.2-1.3) mg/dL AST (17-59) IU/L ALT (<50) IU/L Alkaline Phosphatase (38-126) U/L Total Creatine Kinase (55-170) U/L CK-MB (CK-2) CK-MB (CK-2) Rel Index Troponin I < 0.012 (0.01-0.034) ng/mL Total Protein (6.3-8.2) g/dL Albumin (3.5-5.0) g/dL Globulin (1.7-4.1) g/dL Albumin/Globulin Ratio (1.0-2.8) Lipase (23-300) U/L Urine Dip Bedside Urine Glucose 1000 mg/dl Bedside Urine Bilirubin - Negative Bedside Urine Ketone +/- 5 Urine Specific Sheldahl 1.015 Bedside Urine Occult Blood - Negative Bedside Urine pH 6.0 Bedside Urine Protein - Negative Bedside Urine Urobilinogen - Negative Bedside Urine Nitrite - Negative Bedside Urine Leukocytes - Negative Esterase Imaging Data Chest x-ray: Radiologist's Impression: [address] [address] XRay Report Signed Patient: Anmol Hinojosa MR#: [id number] : 1955 Acct:[id number] Age/Sex: 67 / M Date of Service: 06/09/22 Loc: ED Accession Number: [id number] ?? Procedure: XR chest 1V Ordering Provider: Nubia Woodward D.O. PROCEDURE:? XR CHEST 1V ? INDICATIONS:? chest pain ? TECHNIQUE:? One view of the chest was acquired.? ? COMPARISON:? [facility], CR, XR CHEST 1V, 05/05/2022, 10:03. ? FINDINGS:? ? Surgical changes and devices:? None.? ? Lungs and pleura:? Hazy opacity over right hemithorax is again seen not significantly changed from previous study.? Small right pleural effusion is also present.? No gross pneumothorax.? Left lung is clear .? ? Mediastinum:? Mediastinal contours appear normal.? Heart size is normal.? ? Bones and chest wall:? No suspicious bony lesions.? Overlying soft tissues appear unremarkable.? ? IMPRESSION:? Persistent hazy opacities in right hemithorax suggestive of small right pleural effusion and right-sided patchy infiltrate/atelectasis.? No gross pneumothorax. ? ? Dictated by: Shadi Martinez M.D. on 06/09/2022 at 15:40 ? ? Approved by: Shadi Martinez M.D. on 06/09/2022 at 15:40?? CT scan - chest: Radiologist's Impression: Close Chest CTA (Signed) Lisset Kessler - 06/09/22 Chest X-Ray (Signed) Shadi Martinez - 06/09/22 Launch?Image [address] [address] [address] Scan Report Signed Patient: Anmol Hinojosa MR#: [id number] : 1955 Acct:[id number] Age/Sex: 67 / M Date of Service: 06/09/22 Loc: ED Accession Number: [id number] ?? Procedure: CT angio chest PE protocol Ordering Provider: Mank,Nubia C D.O. PROCEDURE:? CT ANGIO CHEST PE PROTOCOL ? INDICATIONS:? known ca, concern for pe ? TECHNIQUE:? After the administration of intravenous contrast, 2 mm thick sections acquired from the pulmonary apices to the posterior costophrenic angles.? 3-dimensional maximum intensity projection (MIP) coronal and sagittal reformats were then acquired through the thorax.? For radiation dose reduction, the following was used:? automated exposure control, adjustment of mA and/or kV according to patient size.? ? COMPARISON:? [facility], CT, CT ANGIO CHEST PE PROTOCOL, 05/05/2022, 10:42. ? FINDINGS:? Image quality:? Excellent.? ? Pulmonary arteries:? There is attenuation of several right lower lobe pulmonary arteries due to pathologic soft tissue compatible with patient's known malignancy.? There is attenuation of lateral right middle lobe pulmonary arterial branch and near complete attenuation and occlusion of the right upper lobe pulmonary arterial branch.? No definite intraluminal thrombi.? Left pulmonary arteries are normally opacified and of normal caliber. ? Lungs and pleura:? There is circumferential irregular pleural thickening involving the right pleural surface as well as linear opacity, potentially calcification or patch in the anterolateral right lower lung.? There is patchy and confluent airspace disease mainly dependently in the right lung.? There is mild ground-glass opacity involving all segments of the left lower lobe without dense consolidation.? No pleural e ffusion.? Peripheral airways are narrowed, right greater than left.? Central airways are patent. ? Mediastinum:? Heart size at the upper limits of normal.? No pericardial effusion.? Thoracic aorta and pulmonary arteries are normal size.? There is bilateral perihilar soft tissue suggesting confluent adenopathy.? Several mediastinal lymph nodes are prominent.? Esophagus is normal without hiatal hernia. ? Bones and chest wall:? No visible bone lesions.? No acute fractures.? Slightly prominent right axillary lymph nodes.? No supraclavicular adenopathy.? Normal thyroid gland. ? Abdomen:? The visible upper abdomen demonstrates moderate steatosis. ? IMPRESSION:? ? 1. Circumferential pleural thickening in the right lung with perihilar and patchy diffuse airspace opacities compatible with patient's known neoplasm. ? 2. There is no pulmonary embolus, however there is attenuation of the right sided pulmonary arteries. ? 3. There is mild ground-glass opacity in the left lung which may be infectious, inflammatory, less likely metastatic disease.? This may also reflect mild pulmonary edema though there are no pleural effusions. ? 4. There is adenopathy in the mediastinum and confluent hilar tissue is likely adenopathy as well.? ? ? Dictated by: Lisset Kessler M.D. on 06/09/2022 at 19:02 ? ? Approved by: Lisset Kessler M.D. on 06/09/2022 at 19:08 ECG Data Attestation: I personally reviewed and interpreted this ECG as follows: Prior ECG tracings: available for review Interpretation: Sinus tachycardia rate of 106 HI 148 QRS is 72 and QTC of 438. Q-wave in lead 3. No acute ST changes otherwise. Patient has prior from 05/06/2022 that appears similar. EKG 2. Sinus rhythm, rate of 97 HI 148 QRS is 70 QTC of 421. No acute ST changes appreciated today. No dynamic changes. MDM Narrative Medical decision making narrative: This is 67 year old male with complaint of sudden onset chest which has since resolved. Patient cardiac workup does not show acute ST changes from prior on repeat exam in the department troponin is negative, was repeated Patient's CBC, coags not show major change. Prior D-dimer of 3400 in April of 2022 so was not repeated today, patient does have risk factors for blood clots he has known active cancer he had had chemo in the past and has a new nodule and has a PET scan showing right pleural carcinomatosis. CT PE was ordered this shows no pulmonary emboli, circumferential pleural thickening on the right compatible with no neoplasm, mild ground-glass opacity in the left which could be infectious, inflammatory or less likely metastatic. Discussed with patient he has been through 3 rounds of antibiotics without much change. Less suspicious for an infectious etiology at this time. Patient defers additional round of antibiotics. He has CT-guided biopsy tomorrow. Discharge Plan Departure Patient Disposition: Home Clinical Impression: Atypical chest pain Activity Restrictions/Additional Instructions: Follow up with your physician for recheck. I hope your biopsy goes well tomorrow. Continue your home medications as prescribed. Please return for worsening symptoms, new or worsening chest pain, shortness of breath, lightheadedness or passing out, increasing swelling. Prescriptions: No Action benzonatate 200 mg capsule 200 mg PO TID PRN (Reason: cough) Qty: 30 1RF losartan 25 mg tablet 25 mg PO DAILY Qty: 90 2RF Hold Instructions: hypotensive cyclobenzaprine 10 mg tablet 10 mg PO TID PRN (Reason: muscle spasm) Qty: 30 1RF sildenafil 100 mg tablet 50 - 100 mg PO DAILY PRN (Reason: sexual activity) Qty: 10 3RF Rx Instructions: administer 30 minutes to 4 hours before activity tramadol 50 mg tablet 50 mg PO TID PRN (Reason: pain) Qty: 45 1RF Mucinex 1,200 mg tablet extended release 12hr 1,200 mg PO BID prednisone 5 mg tablet See Rx Instructions .ROUTE .COMPLEX Qty: 100 0RF Rx Instructions: Take 15 mg daily by mouth. Consider tapering slowly over one month to 5 mg in the morning, and 2.5 mg in the eveing. oxycodone-acetaminophen 10-325 mg Tablet 1 tab PO Q8H PRN (Reason: cancer pain) Qty: 42 0RF aspirin 81 mg Tablet,Chewable 81 mg PO DAILY Referrals: Tulio Flaherty MD [Primary Care Provider] - Stand Alone Forms: Patient Portal/API
[2022-06-09] MEDS: OXYCODONE IR 5 MG TABLET PO (17:48)
[2022-06-09] MEDS: OXYCODONE/ACETAMINOPHEN 5/325 TABLET 1 TAB PO (17:48)
--- NOTE | 2022-06-09 17:48 | DI.CT.S_ITS ---
PROCEDURE: CT ANGIO CHEST PE PROTOCOL INDICATIONS: known ca, concern for pe TECHNIQUE: After the administration of intravenous contrast, 2 mm thick sections acquired from the pulmonary apices to the posterior costophrenic angles. 3-dimensional maximum intensity projection (MIP) coronal and sagittal reformats were then acquired through the thorax. For radiation dose reduction, the following was used: automated exposure control, adjustment of mA and/or kV according to patient size. COMPARISON: [facility], CT, CT ANGIO CHEST PE PROTOCOL, 05/05/2022, 10:42. FINDINGS: Image quality: Excellent. Pulmonary arteries: There is attenuation of several right lower lobe pulmonary arteries due to pathologic soft tissue compatible with patient's known malignancy. There is attenuation of lateral right middle lobe pulmonary arterial branch and near complete attenuation and occlusion of the right upper lobe pulmonary arterial branch. No definite intraluminal thrombi. Left pulmonary arteries are normally opacified and of normal caliber. Lungs and pleura: There is circumferential irregular pleural thickening involving the right pleural surface as well as linear opacity, potentially calcification or patch in the anterolateral right lower lung. There is patchy and confluent airspace disease mainly dependently in the right lung. There is mild ground-glass opacity involving all segments of the left lower lobe without dense consolidation. No pleural effusion. Peripheral airways are narrowed, right greater than left. Central airways are patent. Mediastinum: Heart size at the upper limits of normal. No pericardial effusion. Thoracic aorta and pulmonary arteries are normal size. There is bilateral perihilar soft tissue suggesting confluent adenopathy. Several mediastinal lymph nodes are prominent. Esophagus is normal without hiatal hernia. Bones and chest wall: No visible bone lesions. No acute fractures. Slightly prominent right axillary lymph nodes. No supraclavicular adenopathy. Normal thyroid gland. Abdomen: The visible upper abdomen demonstrates moderate steatosis. IMPRESSION: 1. Circumferential pleural thickening in the right lung with perihilar and patchy diffuse airspace opacities compatible with patient's known neoplasm. 2. There is no pulmonary embolus, however there is attenuation of the right sided pulmonary arteries. 3. There is mild ground-glass opacity in the left lung which may be infectious, inflammatory, less likely metastatic disease. This may also reflect mild pulmonary edema though there are no pleural effusions. 4. There is adenopathy in the mediastinum and confluent hilar tissue is likely adenopathy as well. Dictated by: Lisset Kessler M.D. on 06/09/2022 at 19:02 Approved by: Lisset Kessler M.D. on 06/09/2022 at 19:08
[2022-06-09 18:27] LABS: Troponin I < 0.012 ng/mL (0.01-0.034)
== END 2022-06-09 19:30 | disposition home or self-care (01) ==
PROVIDERS: Emergency Provider Emergency Medicine; PCP Internal Medicine
DX: R07.89 Other chest pain (principal); R06.02 Shortness of breath
CPT/HCPCS: 71045; 71275; 80053; 81003; 82550; 83690; 83735; 84484; 85025; 85610; 85730; 93005; 99284

== ENCOUNTER 2022-06-17 07:57 | Day surgery (SDC) | payer MEDICARE, OTHER, SELFPAY ==
[2022-03-18 11:21] VITALS: BMI 31.9
[2022-06-10 13:50] VITALS: BMI 31.3
[2022-06-17] VITALS (8 sets, daily range): BP systolic 122–142; BP diastolic 79–93; PULSE 105–130; RESP 16–32; TEMP 36.2–36.9; O2SAT 93–99; BMI 31.3
[2022-06-17] MEDS: LACTATED RINGERS 1,000 ML 42 ML IV (08:44)
--- NOTE | 2022-06-17 09:34 | PM.HP.1 ---
History of Present Illness History of Present Illness Date Patient Seen: 06/17/22 Time Patient Seen: 09:34 Chief complaint: [facility] [place] Narrative: Mr. Saint Antunez presents today for placement of a port a cath. He has stage IV lung cancer. He has had a Port-A-Cath for in the past and then started have some shoulder pain and thought maybe the Port-A-Cath was contributing he was on a temporary pause from his need for this catheter and therefore it was removed in March this year. However he is continuing to be seen by Dr. Alcocer of Oncology and at this time requires another Port-A-Cath placement. He has no preference as to right or left side and is fine with a left-sided as the previous 1 was placed in the the right. He overall states that he is not feeling very well and he has pneumonia that has been ongoing for several months. He thinks it is as good as it has been symptom field today and he did take some Mucinex. He has difficulty with feeling breathless, however at home while lying flat in bed. PFSH Medical History Adenocarcinoma of right lung, stage 4 Adrenal insufficiency BPH w urinary obs/LUTS COVID-19 Diabetes History of colonic polyps Hypertension Tobacco consumption Surgical History H/O hand surgery (~2013) H/O shoulder surgery (~1997) History of lung surgery History of vascular access device Family History Father Prostate cancer Social History household members: spouse Smoking Status: Former smoker alcohol intake: current substance use type: does not use Meds Home Medications and Allergies Home Medications Medication Instructions Recorded Confirmed Type sildenafil 100 mg tablet 50 - 100 mg PO DAILY PRN sexual 09/13/21 06/17/22 Rx activity #10 tabs losartan 25 mg tablet 25 mg PO DAILY #90 tabs 10/14/21 06/17/22 Rx tramadol 50 mg tablet 50 mg PO TID PRN pain #45 tabs 04/15/22 06/17/22 Rx cyclobenzaprine 10 mg tablet 10 mg PO TID PRN muscle spasm #30 05/01/22 06/17/22 Rx tabs guaifenesin 1,200 mg tablet, 1,200 mg PO BID 05/09/22 06/17/22 History extended release 12 hr (Mucinex) prednisone 5 mg tablet See Rx Instructions .Route 05/19/22 06/17/22 Rx .COMPLEX adrenal insufficicny #100 tabs oxycodone 10 mg tablet 10 - 20 mg PO Q4H PRN pain #60 tabs 06/10/22 06/17/22 Rx hydroxyzine HCl 25 mg tablet 25 mg PO TID PRN itching #60 tabs 06/13/22 06/17/22 Rx aspirin 81 mg capsule 81 mg PO DAILY 06/17/22 06/17/22 History Allergies Allergy/AdvReac Type Severity Reaction Status Date / Time bee venom protein (honey bee) Allergy Intermediate Hives Verified 06/17/22 08:27 Penicillins Allergy Intermediate Hives Verified 06/17/22 08:27 hydrocodone Allergy ITCHING Verified 06/17/22 08:27 Exam Vital Signs (past 8 hours): - 06/17/22 08:33 Temperature 98.5 F Pulse Rate 105 H Respiratory Rate 16 Blood Pressure 122/83 Pulse Oximetry 96 Oxygen Delivery Method Room Air Oxygen Delivery Method Room Air Const General: cooperative and comfortable HENMT Head: normal to inspection Eyes General: appearance normal, both eyes and all related structures Neck Neck: lymphadenopathy Resp Effort & Inspection: normal respiratory effort and able to speak in complete sentences GI Palpation: soft and No tender Neuro General: patient alert, patient awake and patient oriented x3 Extrem General: normal to inspection Psych Mood: dysthymic mood Assessment & Plan Assessment and plan (1) Adenocarcinoma of right lung, stage 4: Status: Chronic Assessment & Plan narrative: Mr. Saint Wolfe presents for Port-A-Cath placement. I discussed with him the risks including pneumothorax which could require chest tube placement, infection of the catheter, malfunction of the catheter, bleeding, need to remove or replace the catheter. He understands these risks and wants proceed.
[2022-06-17] MEDS: CEFAZOLIN 2 GM/100 ML PREMIX 100 ML IV (10:05)
--- NOTE | 2022-06-17 10:29 | SUR.OPER ---
Supine on padded OR bed, head on pillow, arms padded and tucked at sides, legs uncrossed, safety belt at thigh, tape over blanket over lower legs . Tape over torso to secure, blanket riser and gel donut under head. Towel roll between shoulder blades
[2022-06-17] MEDS: HEPARIN 5,000 UNIT, SODIUM CHLORIDE 0.9% 50 ML IV (10:38)
[2022-06-17] MEDS: BUPIVACAINE 0.5% (PF) 10 ML VIAL INJ ×2 (10:39→11:08)
--- NOTE | 2022-06-17 11:20 | DI.RAD.S_ITS ---
PROCEDURE: XR CHEST 1V INDICATIONS: s/p PORT in PACU TECHNIQUE: One view of the chest was acquired. COMPARISON: [facility], CR, XR CHEST 1V, 06/09/2022, 15:06. FINDINGS: Surgical changes and devices: Left-sided port with the catheter tip projecting in the region of the left subclavian vein, to the left of the vertebral column. The catheter is somewhat redundant in the left neck. Lungs and pleura: Right lung volume loss. Right lung airspace opacity. Right pleural effusion. These findings appear worsened compared to 06/09/2022 CXR. No pneumothorax. Mediastinum: Mediastinal contours appear grossly similar. Heart size is prominent. Bones and chest wall: No suspicious bony lesions. Overlying soft tissues appear unremarkable. IMPRESSION: Left-sided port with the catheter tip projecting in the region of the left subclavian vein. Suspect that the catheter has pushed back and is redundant in the left IJ. No pneumothorax. Right lung volume loss, airspace opacity, and pleural effusion. Port catheter tip location called to the PACU at time of dictation. Dictated by: Galdino Hernadez M.D. on 06/17/2022 at 12:33 Approved by: Galdino Hernadez M.D. on 06/17/2022 at 12:41
--- NOTE | 2022-06-17 11:38 | PM.OP.1 ---
Operative Date/Time/Diagnoses Date of procedure: 06/17/22 Time of procedure: 11:38 Pre-op diagnosis: Stage IV lung cancer Post-op diagnosis: same Procedure & Clinicians Procedure: Port-A-Cath placement Same procedure as scheduled: Yes Surgeon: Jacquelin Gallagher Click Yes if Unassisted: Yes Anesthesia Type: General Operative Notes Specimen(s): none sent Prosthetic devices, grafts, tissues, transplants, or devices: Subcutaneous implanted Port-A-Cath catheter Procedure in detail: Patient was taken to the operating room and placed supine on the operating room table with a shoulder roll in place. Bilateral SCDs were in place and preoperative antibiotics administered. Anesthesia with an LMA was induced while the patient was in a semi-upright position due to his lung condition. He then tolerated being placed flat for the procedure. A time-out was performed. Ultrasound was used to identify the subclavian vein below the clavicle. I infused local anesthesia around the area and attempted to place the introducer needle into the subclavian vein. However, I had difficulty getting the needle around the clavicle and the needle was a blunted by encountering this bone. I did enter the subclavian vein once, I believe, but when I tried to thread the wire and take a film it the wire was in the subcutaneous area. Therefore the subclavian area was aborted, pressure held for 5 minutes, and the ultrasound was used to find the jugular vein. However, unfortunately I could not use the introducer needle anymore because it had been damaged. We attempted to find a replacement needle that could be used with the guide wire, but unfortunately had to open a 2nd Port-A-Cath kit for the correct introducer needle. After that, using ultrasound guidance, I was able to easily cannulate the jugular vein the introducer wire was placed into position. A x-ray confirmed the appropriate location of the guidewire. Next the catheter was measured at 25 cm and cut then attached to the subcutaneous tunneler. Next, attention was then turned to create the pocket in the subcutaneous tissue overlying the left pectoralis: an 11 blade scalpel was used to open the skin and local anesthetic was infused around the area and used to create a pocket. I also used blunt dissection with a hemostat to open up that pocket further. Next the catheter and subcutaneous needle tunneler were then guided through the pocket incision to where the the dilator tunnel was located overlying the SCM. The dissector needle was removed and the catheter was placed into the dilator/introducer tunnel. The tunnel was then cracked opened and removed. During this process the catheter came out somewhat and I threaded it back down, which mostly was successful, except for a small portion which remained a little bit squiggled in the subcutaneous tissue. The button of the catheter was attached to the catheter tubing and placed into the pocket that had been created. The catheter button was then secured in the subcutaneous tissue using 2x 3-0 Prolene sutures in the top 2 corners. No suture was placed in the bottom triangular corner of the catheter button. I then used 3-0 Vicryl sutures to close the subcutaneous tissue and 4-0 Monocryl to close skin. An x-ray confirmed the adequate location of the catheter in the distal subclavian vein. I then tested the catheter with heparin flush and it flushed well and aspirated well. The patient tolerated the procedure well and went in good condition to the postoperative care unit. Postoperative x-ray was performed showing the catheter in a good location and no pneumothorax. The radiologist did call to let us know that the catheter had an appearance of having backed out somewhat and that the tip was lying in the distal subclavian. After the x-ray was taken I did massage the neck a little bit in the postoperative care unit to try to encouraged that little squiggly part that had backed off to go back down into the vein; I think with time and gravity and with the flow of blood this will straighten out, but it is adequately positioned and usable.
--- NOTE | 2022-06-17 12:33 | SUR.PHASEII ---
DC home with . All belongings with patient. Chronic cough, copious secretions.
== END 2022-06-17 12:34 | disposition home or self-care (01) ==
PROVIDERS: PCP Internal Medicine; Referring Provider Surgery; Visit Provider Surgery
PROC: (CPT 36561; principal; 2022-06-17 09:15)
DX: C34.91 Malignant neoplasm of unspecified part of right bronchus or lung (principal)
CPT/HCPCS: 36561; 71045; C1788; J0690; J1100; J1644; J2405; J2704; J3010

== ENCOUNTER → 2022-06-24 08:02 | Outpatient (CLI) | payer MEDICARE, OTHER, SELFPAY ==
[2022-03-18 11:21] VITALS: BMI 31.9
--- NOTE | 2022-06-24 10:02 | SUR.PREOP ---
Pt. arrived to pre-op very short of breath . 02 sats 84% on room air heart rate 120 b/p 117/[address] notified and procedure cancelled . pt. placed on 02 at 2l/nc sats 94%. ER called and pt. transferred to ED room 10 via WC . notified .
== END ==
PROVIDERS: PCP Internal Medicine; Referring Provider Internal Medicine Hematology & Oncology; Visit Provider Internal Medicine Hematology & Oncology
DX: C34.91 Malignant neoplasm of unspecified part of right bronchus or lung (principal)

== ENCOUNTER 2022-06-24 08:42 | Emergency (ER) | payer MEDICARE, OTHER, SELFPAY ==
[2022-03-18 11:21] VITALS: BMI 31.9
[2022-06-24] VITALS (13 sets, daily range): BP systolic 99–123; BP diastolic 56–91; PULSE 104–127; RESP 22–28; TEMP 37.1; O2SAT 93–99
--- NOTE | 2022-06-24 08:47 | ED.GENADULT ---
HPI - General Adult General Chief complaint: Shortness of Breath/Dyspnea Stated complaint: sent from OR Time Seen by Provider: 06/24/22 08:47 History of Present Illness HPI narrative: 67-year-old male former smoker with history of stage IV adenocarcinoma of R lung, hypertension, adrenal insufficiency presents from the operating room with complaints of shortness of breath. He states very clearly multiple times that he does not feel any differently than he has for many weeks if not longer. He states he is always short of breath, but no more so than normal. He states he always has right-sided chest pain, no more so than normal. He denies any profound fatigue, fever, chills nor nausea or vomiting. He was scheduled to have a CT-guided biopsy this morning which was called off on account of the shortness of breath that he was presenting with. Last night he had a rather strong coughing fit and briefly felt near syncopal but returned to baseline. OR staff reports on room air patient was satting 80%, he does NOT currently need O2 at home. Related Data Home Medications Medication Instructions Recorded Confirmed guaifenesin 1,200 mg tablet, 1,200 mg PO BID 05/09/22 06/19/22 extended release 12 hr (Mucinex) aspirin 81 mg capsule 81 mg PO DAILY 06/17/22 06/17/22 Previous Rx's Medication Instructions Recorded sildenafil 100 mg tablet 50 - 100 mg PO DAILY PRN sexual 09/13/21 activity #10 tabs losartan 25 mg tablet 25 mg PO DAILY #90 tabs 10/14/21 cyclobenzaprine 10 mg tablet 10 mg PO TID PRN muscle spasm #30 05/01/22 tabs prednisone 5 mg tablet See Rx Instructions .Route 05/19/22 .COMPLEX adrenal insufficicny #100 tabs hydroxyzine HCl 25 mg tablet 25 mg PO TID PRN itching #60 tabs 06/13/22 tramadol 50 mg tablet 50 mg PO TID PRN pain #45 tabs 06/17/22 oxycodone 10 mg tablet 10 - 20 mg PO Q4H PRN pain #90 tabs 06/19/22 tamsulosin 0.4 mg capsule 0.4 mg PO DAILY #90 caps 06/19/22 Allergies Allergy/AdvReac Type Severity Reaction Status Date / Time bee venom protein (honey bee) Allergy Intermediate Hives Verified 06/17/22 08:27 Penicillins Allergy Intermediate Hives Verified 06/17/22 08:27 hydrocodone Allergy ITCHING Verified 06/17/22 08:27 Review of Systems Review of Systems Narrative: GENERAL: Denies chills, fatigue, malaise, fever, sweats. HEENT: Denies sinus pain, ear pain, sore throat, difficulty swallowing, dizziness. RESPIRATORY: See HPI CARDIOVASCULAR: Denies chest pain, palpitations, orthopnea, edema, GASTROINTESTINAL: Denies nausea, vomiting, abdominal pain, diarrhea, constipation, melena. : Denies dysuria, frequency, incontinence, hematuria, urinary retention. MUSCULOSKELETAL: denies weakness, joint pain, or bony pain SKIN: Denies rash, skin lesions, or other NEUROLOGIC: Denies weakness, headache, numbness, change in speech, confusion, seizures, incoordination. PSYCHIATRIC: No concerning psychosocial issues. 12 point review of systems is negative except for those stated above Patient History Medical History Adenocarcinoma of right lung, stage 4 Adrenal insufficiency BPH w urinary obs/LUTS COVID-19 Diabetes History of colonic polyps Hypertension Tobacco consumption Surgical History H/O hand surgery (~2013) H/O shoulder surgery (~1997) History of lung surgery History of vascular access device Family History Father Prostate cancer Social History household members: spouse Smoking Status: Former smoker alcohol intake: current substance use type: does not use Smoking Status: Former smoker alcohol intake frequency: 0-2 drinks per day Alcohol type: wine Substance Use Type: does not use Exam Narrative Exam Narrative: GENERAL: [67] year old patient appears stated age. Well-developed patient, in mild distress. HEAD: Atraumatic. Normocephalic. EYES: Pupils equal round and reactive. Extraocular motions intact. No scleral icterus. No injection or drainage. ENT: Nose without bleeding, purulent drainage. Throat without erythema, tonsillar hypertrophy or exudate. Airway patent. NECK: Trachea midline. Non tender CARDIOVASCULAR: Tachycardic but regular rhythm without murmurs, gallops, or rubs. RESPIRATORY: No significant work of breathing, notably decreased breath sounds on the right, no wheezes, rales or rhonchi GASTROINTESTINAL: Abdomen soft, non-tender, nondistended. EXTREMITIES: No edema or joint tenderness. BACK: Nontender without deformity or crepitance. No flank tenderness. NEURO: AOx3. SKIN: No rash or erythema of visible areas Initial Vital Signs Initial Vital Signs: Vital Signs Temperature 98.7 F 06/24/22 08:59 Pulse Rate 114 H 06/24/22 08:59 Respiratory Rate 28 H 06/24/22 08:59 Blood Pressure 123/91 H 06/24/22 08:59 Pulse Oximetry 99 06/24/22 08:59 Oxygen Delivery Method Nasal Cannula 06/24/22 08:59 Oxygen Flow Rate 3 06/24/22 08:59 Course Orders Ordered: ED Orders 06/24/22 09:55 CT chest abd pel w con Stat 06/24/22 09:56 ABG [Arterial Blood Gas] Stat 06/24/22 10:04 Ictotest Urine Stat Urine Microscopic Stat Discontinued Medications Heparin Sodium (Porcine) (Heparin 500 Unit/5 Ml Port Flush) 500 unit IV NOW ONE Stop: 06/24/22 14:04 Last Admin: 06/24/22 14:14 Dose: 500 unit Documented By: BS Sodium Chloride (Normal Saline 0.9%) 500 mls @ 1,000 mls/hr IV BOLUS ONE Stop: 06/24/22 09:26 Last Infusion: 06/24/22 10:00 Dose: 0 mls/hr Documented By: Admin: 06/24/22 09:26 Dose: 1,000 mls/hr Documented By: AMU Oxycodone/Acetaminophen (Oxycodone/Acetaminophen 5/325 Tablet) 2 tab PO NOW ONE Stop: 06/24/22 11:39 Last Admin: 06/24/22 11:43 Dose: 2 tab Documented By: SPF Consultations Consultation #1: Upon receipt of abnormal CT findings suggestive of clot at the port I discussed with vascular (Dr. Burk) at [facility] who suggest, based on clinical presentation that it is unlikely to be an occlusive process of the SVC but wanted to go to his radiology department to pull up imaging. In doing so he discussed with Dr. Baez (radiology) who called me to suggest that it does not appear to be a clot or occluded. She recommends accessing the port and attempting to flush and draw. This was done successfully and quite easily which is highly suggestive of the absence of clot Consultation #2: Discussed with Dr. Holloway who is on-call for Dr. Pelayo. After a lengthy discussion of the course today including patient's history, physical exam, labs and imaging he suggests that the patient would be most appropriate for discharge, no indication for antibiotics given lack of fever and negative procalcitonin. He will see Dr. Pelayo tomorrow to ensure close follow-up suggesting that the patient likely will need referral to Dr. Giron for bronchoscopy Vital Signs Vital signs: Vital Signs - 8 hr 06/24/22 11:00 06/24/22 11:30 06/24/22 11:42 Pulse Rate 118 H 120 H 123 H Respiratory Rate 24 Blood Pressure 113/56 L Pulse Oximetry 93 94 95 Oxygen Delivery Method Room Air 06/24/22 11:42 06/24/22 12:00 06/24/22 12:00 Pulse Rate 127 H Respiratory Rate 25 H Blood Pressure 113/56 L 110/68 Pulse Oximetry 95 Oxygen Delivery Method Room Air 06/24/22 12:30 06/24/22 12:30 06/24/22 13:00 Pulse Rate 117 H Respiratory Rate 23 Blood Pressure 99/61 99/60 Pulse Oximetry 93 Oxygen Delivery Method Room Air 06/24/22 13:00 06/24/22 13:30 06/24/22 13:30 Pulse Rate 110 H 106 H Respiratory Rate 22 Blood Pressure 111/66 Pulse Oximetry 94 94 Oxygen Delivery Method Room Air Room Air 06/24/22 13:57 06/24/22 13:57 06/24/22 14:00 Pulse Rate 109 H 104 H Respiratory Rate Blood Pressure 108/73 Pulse Oximetry 93 94 Oxygen Delivery Method Room Air Medical Decision Making Lab Data 06/24/22 09:10 06/24/22 09:10 Labs: Lab Results 06/24/22 06/24/22 06/24/22 Range/Units 09:10 09:10 09:10 WBC 11.3 H (4.5-11.0) X10^3/uL RBC 4.37 L (4.5-5.9) X10^6/uL Hgb 13.4 L (13.5-17.5) g/dL Hct 39.2 L (41-53) % MCV 89.6 (80-100) fL MCH 30.6 (26-34) PG MCHC 34.2 (30-36) % RDW 13.3 (11.6-14.8) % Plt Count 206 (150-400) X10^3/uL Neut % (Auto) 63.9 (50-75) % Lymph % (Auto) 19.3 L (25-40) % [place] % (Auto) 12.4 (3-14) % Eos % (Auto) 3.4 (2-4) % Baso % (Auto) 1.0 (0-2) % Neut # (Auto) 7200 H (3955-6101) /uL Lymph # (Auto) 2200 (3638-9613) /uL [place] # (Auto) 1400 H (0-900) /uL Eos # (Auto) 400 (0-450) /uL Baso # (Auto) 100 (0-100) /uL Sodium 132 L (137-145) mmol/L Potassium 4.0 (3.4-5.1) mmol/L Chloride 99 (98-107) mmol/L Carbon Dioxide 25 (22-32) mmol/L BUN 15 (9-20) mg/dL Creatinine 0.68 (0.66-1.25) mg/dL Estimated GFR > 60 (>60) mL/min BUN/Creatinine Ratio 22.1 H (6-22) Glucose 167 H (80-110) mg/dL Lactate 1.8 (0.7-2.1) mmol/L Calcium 8.9 (8.4-10.2) mg/dL Magnesium 2.1 (1.6-2.3) mg/dL Total Bilirubin 0.9 (0.2-1.3) mg/dL AST 30 (17-59) IU/L ALT 38 (<50) IU/L Alkaline Phosphatase 49 (38-126) U/L Total Creatine Kinase (55-170) U/L CK-MB (CK-2) CK-MB (CK-2) Rel Index Troponin I (0.01-0.034) ng/mL NT-Pro-B Natriuret Pep 32 (<125) pg/mL Total Protein 7.6 (6.3-8.2) g/dL Albumin 3.8 (3.5-5.0) g/dL Globulin 3.8 (1.7-4.1) g/dL Albumin/Globulin Ratio 1.0 (1.0-2.8) Procalcitonin 0.10 (<0.5) ng/mL Ur Bilirubin Confirm (Negative) Urine RBC (0-5/HPF) Urine WBC (0-5/HPF) Amorphous Sediment Urine Bacteria (None) Urine Mucus (Negative) Ur Culture Indicated? 06/24/22 06/24/22 06/24/22 Range/Units 09:10 10:04 10:04 WBC (4.5-11.0) X10^3/uL RBC (4.5-5.9) X10^6/uL Hgb (13.5-17.5) g/dL Hct (41-53) % MCV (80-100) fL MCH (26-34) PG MCHC (30-36) % RDW (11.6-14.8) % Plt Count (150-400) X10^3/uL Neut % (Auto) (50-75) % Lymph % (Auto) (25-40) % [place] % (Auto) (3-14) % Eos % (Auto) (2-4) % Baso % (Auto) (0-2) % Neut # (Auto) (9691-9276) /uL Lymph # (Auto) (2711-5714) /uL [place] # (Auto) (0-900) /uL Eos # (Auto) (0-450) /uL Baso # (Auto) (0-100) /uL Sodium (137-145) mmol/L Potassium (3.4-5.1) mmol/L Chloride (98-107) mmol/L Carbon Dioxide (22-32) mmol/L BUN (9-20) mg/dL Creatinine (0.66-1.25) mg/dL Estimated GFR (>60) mL/min BUN/Creatinine Ratio (6-22) Glucose (80-110) mg/dL Lactate (0.7-2.1) mmol/L Calcium (8.4-10.2) mg/dL Magnesium (1.6-2.3) mg/dL Total Bilirubin (0.2-1.3) mg/dL AST (17-59) IU/L ALT (<50) IU/L Alkaline Phosphatase (38-126) U/L Total Creatine Kinase 23 L (55-170) U/L CK-MB (CK-2) TNP CK-MB (CK-2) Rel Index TNP Troponin I < 0.012 (0.01-0.034) ng/mL NT-Pro-B Natriuret Pep (<125) pg/mL Total Protein (6.3-8.2) g/dL Albumin (3.5-5.0) g/dL Globulin (1.7-4.1) g/dL Albumin/Globulin Ratio (1.0-2.8) Procalcitonin (<0.5) ng/mL Ur Bilirubin Confirm Negative (Negative) Urine RBC None seen (0-5/HPF) Urine WBC 0-1/hpf (0-5/HPF) Amorphous Sediment 1+ Urine Bacteria None seen (None) Urine Mucus 3+ H (Negative) Ur Culture Indicated? Cult not indicated Urine Dip Bedside Urine Glucose Negative Bedside Urine Bilirubin + 1 Bedside Urine Ketone - Negative Urine Specific [place] 1.030 Bedside Urine Occult Blood - Negative Bedside Urine pH 6.0 Bedside Urine Protein + 30 Bedside Urine Urobilinogen - Negative Bedside Urine Nitrite - Negative Bedside Urine Leukocytes - Negative Esterase Point of care testing: Urine Dip Bedside Urine Glucose Negative Bedside Urine Bilirubin + 1 Bedside Urine Ketone - Negative Urine Specific [place] 1.030 Bedside Urine Occult Blood - Negative Bedside Urine pH 6.0 Bedside Urine Protein + 30 Bedside Urine Urobilinogen - Negative Bedside Urine Nitrite - Negative Bedside Urine Leukocytes - Negative Esterase MDM Narrative Medical decision making narrative: [67] year old patient presents with shortness of breath which prevented a CT-guided biopsy in the OR Multiple etiologies for patient's symptoms considered including, but not limited to: [Pulmonary embolism, pneumothorax, pneumonia versus other] Prior Charts reviewed in our EMR Primary Historian: patient Labs reviewed and interpreted by myself: Imaging reviewed: CT results above Consultations: Discussed with Radiology, Oncology see details above Patient's symptoms improved over duration of stay with above-stated therapies. Findings and discharge diagnosis discussed with patient/family followed by verbalization of understanding Return precautions discussed with patient/family whom verbalize understanding of diagnosis and plan Critical Care Time Critical Care Time Critical Care Time: Yes Total Critical Care Time: 30 Attestation: The high probability of a clinically significant, sudden or life threatening deterioration of the [CV] system(s) required my full and direct attention, intervention and personal management. The aggregate critical care time was [30] minutes. This time is in addition to time spent performing reported procedures but includes the following: x Data Review and interpretation [x] Patient assessment and monitoring of vital signs [x] Documentation [x] Medication orders and management Discharge Plan Departure Patient Disposition: Home Clinical Impression: Lung cancer Instructions: DI for Lung Cancer Activity Restrictions/Additional Instructions: *You have been diagnosed with [right lung adenocarcinoma. As we discussed, after multiple phone calls today your labs and imaging are reassuring and though further procedures will need to happen in short order there is no indication that transfer or admission today would be beneficial.] *What to do: *Please continue to take your regular medications as directed. [ ] New medication prescriptions sent to your pharmacy: [ ] [ ] New medication written as a paper prescription [ ] No new medications given *Please follow up closely with Dr. Pelayo's office as they will need to help placing in urgent referral to see Dr. Giron at [facility] to help with some of the findings we had today. *If you do not have a primary care provider please contact the [facility] Resource line at [phone]. They will ask some questions about your medical history and help get you set up with a doctor in the community. *Return to Emergency Department if you should have any new, worsening or concerning symptoms, such as [fever greater than 101 F, shaking chills, worsening pain, persistent vomiting or other bothersome symptoms] Prescriptions: No Action losartan 25 mg tablet 25 mg PO DAILY Qty: 90 2RF Hold Instructions: hypotensive cyclobenzaprine 10 mg tablet 10 mg PO TID PRN (Reason: muscle spasm) Qty: 30 1RF hydroxyzine HCl 25 mg tablet 25 mg PO TID PRN (Reason: itching) Qty: 60 1RF oxycodone 10 mg tablet 10 - 20 mg PO Q4H MDD 100mg oxycodone PRN (Reason: pain) Qty: 90 0RF tamsulosin 0.4 mg capsule 0.4 mg PO DAILY Qty: 90 3RF sildenafil 100 mg tablet 50 - 100 mg PO DAILY PRN (Reason: sexual activity) Qty: 10 3RF Rx Instructions: administer 30 minutes to 4 hours before activity Mucinex 1,200 mg tablet extended release 12hr 1,200 mg PO BID prednisone 5 mg tablet See Rx Instructions .ROUTE .COMPLEX Qty: 100 0RF Rx Instructions: Currently at 10 mg qday. Take 15 mg daily by mouth. Consider tapering slowly over one month to 5 mg in the morning, and 2.5 mg in the eveing. aspirin 81 mg Capsule 81 mg PO DAILY tramadol 50 mg tablet 50 mg PO TID PRN (Reason: pain) Qty: 45 1RF Referrals: Tulio Flaherty MD [Primary Care Provider] - Stand Alone Forms: Patient Portal/API
--- NOTE | 2022-06-24 08:57 | DI.RAD.S_ITS ---
PROCEDURE: XR CHEST 2V INDICATIONS: SOB, cough, R sided chest pain TECHNIQUE: 2 views of the chest were acquired. COMPARISON: [facility], CR, XR CHEST 1V, 06/09/2022, 15:06. [facility], CR, XR CHEST 1V, 06/17/2022, 11:16. [facility], CT, CT ANGIO CHEST PE PROTOCOL, 06/09/2022, 17:52. FINDINGS: Surgical changes and devices: Left chest Port-A-Cath, the tip of which projects to either the proximal superior vena cava or the azygos vein. Lungs and pleura: Again noted is lobulated circumferential right hemithorax pleural thickening and prominent right basilar density, consistent with patient's known history of malignancy. There is superimposed pulmonary edema. Mediastinum: Mediastinal contours are normal. Heart size is normal. Bones and chest wall: No suspicious bony abnormalities. Soft tissues appear unremarkable. IMPRESSION: 1. Known malignancy with circumferential lobulated right hemithorax pleural thickening. Also with associated right basilar density. 2. Superimposed pulmonary edema. 3. Tip of Port-A-Cath either projects to proximal SVC or the azygos vein. Dictated by: Patrick Gary M.D. on 06/24/2022 at 9:42 Approved by: Patrick Gary M.D. on 06/24/2022 at 9:45
[2022-06-24 09:19] LABS: Add Manual Diff / Slide Review NO; Basophils Absolute Auto 100 /uL (0-100); Eosinophils Absolute Auto 400 /uL (0-450); Eosinophils Percent Auto 3.4 % (2-4); Hematocrit 39.2 % (41-53); Hemoglobin 13.4 g/dL (13.5-17.5); Lymphocytes Absolute Auto 2200 /uL (1100-4500); Lymphocytes Percent Auto 19.3 % (25-40); Mean Corpuscular HGB Conc 34.2 % (30-36); Mean Corpuscular Hemoglobin 30.6 PG (26-34); Mean Corpuscular Volume 89.6 fL (80-100); Monocytes Absolute Auto 1400 /uL (0-900); Monocytes Percent Auto 12.4 % (3-14); Neutrophils Absolute Auto 7200 /uL (1500-7000); Neutrophils Percent Auto 63.9 % (50-75); Platelet Count 206 X10^3/uL (150-400); Red Blood Cell Count 4.37 X10^6/uL (4.5-5.9); Red Cell Distribution Width 13.3 % (11.6-14.8); White Blood Cell Count 11.3 X10^3/uL (4.5-11.0)
[2022-06-24] MEDS: SODIUM CHLORIDE 0.9% 500 ML 1000 ML IV (09:26)
[2022-06-24 09:29] LABS: Alanine Aminotransferase 38 IU/L (<50); Albumin 3.8 g/dL (3.5-5.0); Alkaline Phosphatase 49 U/L (38-126); Aspartate Aminotransferase 30 IU/L (17-59); BUN Creatinine Ratio 22.1 (6-22); Bilirubin Total 0.9 mg/dL (0.2-1.3); Blood Urea Nitrogen 15 mg/dL (9-20); Calcium 8.9 mg/dL (8.4-10.2); Carbon Dioxide 25 mmol/L (22-32); Chloride 99 mmol/L (98-107); Creatine Kinase 23 U/L (55-170); Estimated Glomerular Filt Rate > 60 mL/min (>60); Globulin 3.8 g/dL (1.7-4.1); Glucose 167 mg/dL (80-110); Magnesium 2.1 mg/dL (1.6-2.3); Sodium 132 mmol/L (137-145); Total Protein 7.6 g/dL (6.3-8.2)
[2022-06-24 09:30] LABS: HEMOLYSIS 69 (0-50); Lactate (Lactic Acid) 1.8 mmol/L (0.7-2.1)
[2022-06-24 09:38] LABS: NT-proBNP (BNP-Adult 18+) 32 pg/mL (<125)
[2022-06-24 09:41] LABS: Troponin I < 0.012 ng/mL (0.01-0.034)
--- NOTE | 2022-06-24 09:55 | DI.CT.S_ITS ---
PROCEDURE: CT CHEST ABD PEL W CON INDICATIONS: SOB, hypoxemia, worse than normal, near syncope TECHNIQUE: After the administration of intravenous contrast, 5 mm thick sections acquired from the lung apices to the symphysis. 5 mm coronal and sagittal reformats were performed, with additional 7 mm MIP reformats through the lungs. For radiation dose reduction, the following was used: automated exposure control, adjustment of mA and/or kV according to patient size. COMPARISON: [facility], CT, CT ANGIO CHEST PE PROTOCOL, 06/09/2022, 17:52. [facility], CR, XR CHEST 2V, 06/24/2022, 9:13. [facility], CT, CT CHEST ABD PEL W CON, 02/21/2022, 11:26. FINDINGS: Image quality: Excellent. CHEST: Lungs and pleura: There is nodular lobulated circumferential pleural thickening around the right hemithorax with decrease in volume of the right hemithorax consistent with the patient's known history of malignancy. There is pleural based mass along the medial aspect of the upper right hemithorax which invades the mediastinum. This was present on the previous study, as well. As before, it occludes the superior segment right upper lobe pulmonary artery. There is interval development of occlusion of the right lower lobe basilar bronchi, resulting in progressive collapse of the basilar segments of the right lower lobe, increased compared to the previous study. Increased interstitial changes in the right lung suggest possible interstitial spread of tumor. Small focal subsolid nodular opacity, left upper lobe, new compared to the previous study, measuring 1.4 cm, on image 130/3. Consider focal small pneumonia. Loculated pleural effusion, right lung base, as before. Mediastinum: Heart size is normal. No pericardial effusion. No mediastinal or hilar adenopathy by size criteria. Thoracic aorta and central pulmonary arteries are normal in size. Esophagus is normal in caliber. No hiatal hernia. A left chest Port-A-Cath is in place, the tip which is present in the superior vena cava. There is a catheter tip thrombus which is occlusive of the superior vena cava, which measures 1.5 x 1.1 cm. Chest wall: No axillary or supraclavicular adenopathy by size criteria. Thyroid gland is unremarkable . ABDOMEN: Solid organs: Liver is normal in size and enhancement. Gallbladder is unremarkable . Biliary system is non dilated. Pancreas enhances normally. Spleen is normal in size and enhancement. No adrenal nodules. Kidneys demonstrate normal size and enhancement, without hydronephrosis. Peritoneum and bowel: Bowel loops demonstrate normal wall thickness and caliber. No free fluid or air. Nodes and vessels: No retroperitoneal or mesenteric adenopathy by size criteria. Aorta and inferior vena cava are normal in size. Miscellaneous: No ventral hernias. PELVIS: Genitourinary: Bladder wall thickness is normal. Miscellaneous: No inguinal hernias or adenopathy. Bones: No suspicious bony lesions. No vertebral body compression fractures. IMPRESSION: 1. The tip of a left chest Port-A-Cath is present in the superior vena cava. There is a occlusive 1.1 x 1.5 cm clot on the tip of the catheter. It occludes the superior vena cava. 2. Circumferential tumor spread around the periphery of the right hemithorax, as before. As before, there is invasion of the superior right mediastinum. The tumor that invades the right superior mediastinum occludes the superior segment right upper lobe pulmonary artery. 3. Since the recent prior CT angiogram, basilar segmental bronchi of the right lower lobe have completely occluded. There is now near complete collapse of the basilar segments of the right lower lobe. 4. Question interstitial spread of tumor in the right hemithorax. 5. Question small focal peripheral infiltrate, left lung. 6. No evidence of metastatic disease in the abdomen and pelvis. Comment: Perhaps the thrombus on the tip of the Port-A-Cath, which, although small, is occlusive, may potentially be causing symptoms compatible with superior vena cava syndrome when the patient lies down. Dictated by: Patrick Gary M.D. on 06/24/2022 at 10:34 Approved by: Patrick Gary M.D. on 06/24/2022 at 10:59
[2022-06-24 10:33] LABS: Ictotest Urine Negative (Negative)
[2022-06-24 10:39] LABS: RBC Urine None Seen (0-5/HPF); WBC Urine 0-1/HPF (0-5/HPF)
[2022-06-24 10:40] LABS: Amorphous Sediment Urine 1+; Bacteria Urine None Seen; Culture Indicated Urine Cult Not Indicated; Mucus Urine 3+ (Negative)
[2022-06-24] MEDS: OXYCODONE/ACETAMINOPHEN 5/325 TABLET 2 TAB PO (11:43)
[2022-06-24] MEDS: LIDOCAINE 2% INJ SDV 5ML 5 ML (12:32)
== END 2022-06-24 14:21 | disposition home or self-care (01) ==
PROVIDERS: Emergency Provider Emergency Medicine; PCP Internal Medicine
DX: C34.90 Malignant neoplasm of unspecified part of unspecified bronchus or lung (principal); R79.89 Other specified abnormal findings of blood chemistry
CPT/HCPCS: 36415; 71046; 71260; 74177; 80053; 81003; 81015; 82550; 83605; 83735; 83880; 84145; 84484; 85025; 96360; 99285; J1642; Q9967

== ENCOUNTER → 2022-06-29 11:26 | Outpatient (CLI) | payer MEDICARE, OTHER, SELFPAY ==
[2022-03-18 11:21] VITALS: BMI 31.9
--- NOTE | 2022-06-29 11:30 | DI.MRI.S_ITS ---
PROCEDURE: MR SHOULDER RT WO CON INDICATIONS: Right shoulder impingement TECHNIQUE: Noncontrast oblique coronal T2 fast spin echo with fat saturation, oblique sagittal T1 spin echo and T2 fast spin echo with fat saturation, axial T1 spin echo and T2 fast spin echo with fat saturation through the shoulder. COMPARISON: [facility], CT, CT CHEST ABD PEL W CON, 06/24/2022, 10:06. [facility], NM, NM PET CT FUSION SKULL 2 THIGH, 05/14/2022, 8:01. [facility], CR, XR SHOULDER RT MIN 2V, 06/29/2022, 11:37. FINDINGS: Image quality: Excellent. Rotator cuff: Moderate supraspinatus, infraspinatus, and subscapularis tendinosis. No full-thickness tendon tear. The sagittal images demonstrate no rotator cuff muscle atrophy. Bones and bursae: No bone marrow contusions or fractures. Moderate acromioclavicular and glenohumeral joint degeneration. The acromion demonstrates conventional anatomy, without an os acromiale. No pathologic subacromial-subdeltoid or subcoracoid bursal fluid is present. Capsule and soft tissues: There is degenerative labral fraying involving the superior and inferior labrum. The long head of the biceps tendon demonstrates normal location and morphology. The rotator interval appears normal, without fibrosis. The coracohumeral ligament is normal in thickness. IMPRESSION: 1. Moderate rotator cuff tendinosis. No full-thickness tendon tear or rotator cuff muscle atrophy. 2. 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 3. Degenerative labral fraying. Dictated by: Jayda Marcial M.D. on 06/30/2022 at 8:06 Approved by: Jayda Marcial M.D. on 06/30/2022 at 9:35
--- NOTE | 2022-06-29 11:30 | DI.RAD.S_ITS ---
PROCEDURE: XR SHOULDER RT MIN 2V INDICATIONS: Right shoulder impingement TECHNIQUE: 3 views of the shoulder were acquired. COMPARISON: None. FINDINGS: Bones: Degenerative changes of the glenohumeral joint and acromioclavicular joint. No fractures or dislocations. No suspicious bony lesions. Visualized ribs appear intact. Soft tissues: No suspicious soft tissue calcifications. The tip of a catheter is seen in the upper chest. IMPRESSION: Degenerative changes of the acromioclavicular joint and glenohumeral joint. If symptoms persist consider MRI. Dictated by: Sonu Wiseman M.D. on 06/29/2022 at 15:07 Approved by: Sonu Wiseman M.D. on 06/29/2022 at 15:08
== END ==
PROVIDERS: PCP Internal Medicine; Referring Provider Physical Medicine & Rehabilitation; Visit Provider Physical Medicine & Rehabilitation
DX: M25.811 Other specified joint disorders, right shoulder (principal); M19.011 Primary osteoarthritis, right shoulder
CPT/HCPCS: 73030; 73221

== ENCOUNTER 2022-07-03 12:59 | Inpatient (IN) | payer MEDICARE, OTHER, SELFPAY ==
[2022-03-18 11:21] VITALS: BMI 31.9
[2022-07-03] VITALS (33 sets, daily range): BP systolic 91–142; BP diastolic 55–78; PULSE 87–139; RESP 8–45; TEMP 36.2–39.3; O2SAT 40–97; BMI 30.8
--- NOTE | 2022-07-03 13:11 | DI.RAD.S_ITS ---
PROCEDURE: XR CHEST 1V INDICATIONS: Shortness of breath TECHNIQUE: One view of the chest was acquired. COMPARISON: [facility], CR, XR CHEST 2V, 06/24/2022, 9:13. FINDINGS: Surgical changes and devices: Left-sided Port-A-Cath is unchanged. Lungs and pleura: There is near complete opacification of the right hemithorax, increased compared to prior exam. Patchy areas of opacity are present within the left hemithorax relatively stable. Mediastinum: Mediastinal contours appear normal. Heart size is enlarged. Bones and chest wall: No suspicious bony lesions. Overlying soft tissues appear unremarkable. IMPRESSION: Worsened appearance of opacification within the right hemithorax which may represent pneumonia fusion and or other etiology. Dictated by: Zaira Kelley M.D. on 07/03/2022 at 13:25 Approved by: Zaira Kelley M.D. on 07/03/2022 at 13:27
--- NOTE | 2022-07-03 13:22 | DI.CT.S_ITS ---
PROCEDURE: CT ANGIO CHEST PE PROTOCOL INDICATIONS: Low O2, bilateral crackles, known lung ca TECHNIQUE: After the administration of intravenous contrast, 2 mm thick sections acquired from the pulmonary apices to the posterior costophrenic angles. 3-dimensional maximum intensity projection (MIP) coronal and sagittal reformats were then acquired through the thorax. For radiation dose reduction, the following was used: automated exposure control, adjustment of mA and/or kV according to patient size. COMPARISON: [facility], CT, CT CHEST ABD PEL W CON, 06/24/2022, 10:06. [facility], NM, NM PET CT FUSION SKULL 2 THIGH, 05/14/2022, 8:01. [facility], CR, XR CHEST 1V, 07/03/2022, 13:08. [facility], CT, CT ANGIO CHEST PE PROTOCOL, 06/09/2022, 17:52. FINDINGS: Image quality: Excellent. Pulmonary arteries: There is suboptimal opacification of central pulmonary arteries. Pulmonary arteries are normal in size, and demonstrate no intraluminal filling defects to suggest central pulmonary embolism. Lungs and pleura: Bilateral interstitial and airspace infiltrates, increased compared to the last exam. Right basilar consolidation or atelectasis. No pleural effusions or pneumothorax. There is a obstruction of the right lower lobe bronchus either by endobronchial mass or mucous material. Mediastinum: Heart size is normal, without pericardial effusion. There is mediastinal and hilar adenopathy, unchanged. Thoracic aorta is normal in caliber and enhancement. Esophagus is normal in caliber, without hiatal hernia. Bones and chest wall: No suspicious bony lesions. Ribs and thoracic spine appear intact throughout. Thyroid gland is unremarkable. No axillary or supraclavicular adenopathy. Abdomen: Mild hepatomegaly. Visualized upper abdominal solid organs appear normal in the early arterial phase of enhancement. IMPRESSION: 1. Suboptimal opacification of central pulmonary arteries. No definitive pulmonary embolism. 2. Increased pleural thickening in right hemithorax consistent with worsening of pleural metastasis. 3. 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 4. Mediastinal and hilar lymphadenopathy, compatible with trinh metastases. Dictated by: Jayda Marcial M.D. on 07/03/2022 at 14:11 Approved by: Jayda Marcial M.D. on 07/03/2022 at 14:31
[2022-07-03 13:25] LABS: INR 1.4 (0.9-1.3); Prothrombin Time 15.9 SECONDS (10.1-12.7)
[2022-07-03] MEDS: methylPREDNISolone 125 MG/2 ML VIAL IV (13:26)
[2022-07-03 13:30] LABS: Lactate (Lactic Acid) 3.2 mmol/L (0.7-2.1)
[2022-07-03 13:32] LABS: Alanine Aminotransferase 41 IU/L (<50); Albumin 3.7 g/dL (3.5-5.0); Alkaline Phosphatase 55 U/L (38-126); Aspartate Aminotransferase 39 IU/L (17-59); BUN Creatinine Ratio 13.5 (6-22); Bilirubin Total 1.1 mg/dL (0.2-1.3); Blood Urea Nitrogen 10 mg/dL (9-20); Calcium 8.3 mg/dL (8.4-10.2); Carbon Dioxide 25 mmol/L (22-32); Chloride 93 mmol/L (98-107); Estimated Glomerular Filt Rate > 60 mL/min (>60); Globulin 3.7 g/dL (1.7-4.1); Glucose 184 mg/dL (80-110); HEMOLYSIS 57 (0-50); Potassium 4.4 mmol/L (3.4-5.1); Sodium 128 mmol/L (137-145); Total Protein 7.4 g/dL (6.3-8.2)
[2022-07-03 13:34] LABS: Add Manual Diff / Slide Review NO; Basophils Absolute Auto 100 /uL (0-100); Basophils Percent Auto 0.7 % (0-2); Eosinophils Absolute Auto 100 /uL (0-450); Eosinophils Percent Auto 1.2 % (2-4); Hematocrit 36.5 % (41-53); Hemoglobin 12.3 g/dL (13.5-17.5); Lymphocytes Absolute Auto 1100 /uL (1100-4500); Lymphocytes Percent Auto 11.8 % (25-40); Mean Corpuscular HGB Conc 33.6 % (30-36); Mean Corpuscular Volume 89.3 fL (80-100); Monocytes Absolute Auto 900 /uL (0-900); Monocytes Percent Auto 10.2 % (3-14); Neutrophils Absolute Auto 7100 /uL (1500-7000); Neutrophils Percent Auto 76.1 % (50-75); Platelet Count 309 X10^3/uL (150-400); Red Blood Cell Count 4.09 X10^6/uL (4.5-5.9); Red Cell Distribution Width 13.3 % (11.6-14.8); White Blood Cell Count 9.3 X10^3/uL (4.5-11.0)
[2022-07-03 13:42] LABS: NT-proBNP (BNP-Adult 18+) 104 pg/mL (<125); Troponin I < 0.012 ng/mL (0.01-0.034)
--- NOTE | 2022-07-03 13:46 | PC.NURSE ---
1325 Patient placed on BIPAP, RT at bedside.
--- NOTE | 2022-07-03 13:48 | RT ---
pt placed on Bipap without incident, curry well. bipap plugged into red outlet
[2022-07-03] MEDS: VANCOMYCIN 1,500 MG/300 ML PIGGYBACK 200 MG IV (14:05)
[2022-07-03 14:11] LABS: B. parapertussis Not Detected (Not Detecte); Bordetella pertussis Not Detected (Not Detecte); Chlamydophila pneumoniae Not Detected (Not Detect); Coronavirus 229E Not Detected (Not Detect); Coronavirus HKU1 Not Detected (Not Detect); Coronavirus NL 63 Not Detected (Not Detect); Coronavirus OC43 Not Detected (Not Detect); Human Metapneumovirus Not Detected (Not Detect); Human Rhinovirus/Enterovirus Not Detected (Not Detect); Influenza A Not Detected (Not Detect); Influenza B Not Detected (Not Detect); Mycoplasma pneumoniae Not Detected (Not Detect); Parainfluenza Virus 1 Not Detected (Not Detect); Parainfluenza Virus 2 Not Detected (Not Detect); Parainfluenza Virus 3 Not Detected (Not Detect); Parainfluenza Virus 4 Not Detected (Not Detect); Respiratory Syncytial Virus Not Detected (Not Detect); SARS- CoV-2 Detected (Not Detecte)
[2022-07-03 14:12] LABS: Adenovirus Not Detected (Not Detect)
--- NOTE | 2022-07-03 14:52 | ED.SOB ---
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 Patient states he was on contact with his oncology team they sent home O2 but he continued to be hypoxic home even with it. He denies fevers or chills. He states he is had a cough that has been productive with yellow sputum occasional trace of hemoptysis but rare. He states that has been going on for several weeks. He states he got significantly short of breath over the past 1-2 days. Patient denies chest pain or pressure. No passing out. Denies any nausea or vomiting. Patient states he is had a lot of coughing fits. Patient was recently constipated. Denies any urinary symptoms. Denies any new swelling in extremities. Patient denies any cardiac history, no cardiac stents he is on medication for hypertension, chronic pain. Patient has a port in his left chest. He states he used to have a port in his right but it was discontinued. Former smoker, occasional alcohol, no illicit. Patient's primary care is Dr. Flaherty. Patient states Dr. Pelayo is his oncologist. Patient notes he recently started Keytruda. Related Data Home Medications Medication Instructions Recorded Confirmed guaifenesin 1,200 mg tablet, 1,200 mg PO BID 05/09/22 06/26/22 extended release 12 hr (Mucinex) aspirin 81 mg capsule 81 mg PO DAILY 06/17/22 07/03/22 prednisone 10 mg tablet 10 mg PO DAILY 06/25/22 07/03/22 Previous Rx's Medication Instructions Recorded sildenafil 100 mg tablet 50 - 100 mg PO DAILY PRN sexual 09/13/21 activity #10 tabs losartan 25 mg tablet 25 mg PO DAILY #90 tabs 10/14/21 tamsulosin 0.4 mg capsule 0.4 mg PO DAILY #90 caps 06/19/22 gabapentin 300 mg capsule 300 mg PO .COMPLEX #90 caps 06/25/22 dextromethorphan HBr 15 mg capsule 15 mg PO .HS PRN cough #60 caps 06/26/22 guaifenesin 1,200 mg tablet, 1,200 mg PO BID #60 tabs 06/26/22 extended release 12 hr hydroxyzine HCl 50 mg tablet 100 mg PO QID PRN itching #180 tabs 06/26/22 ipratropium 20 mcg-albuterol 100 1 puff inhalation Q4H PRN cough #4 06/26/22 mcg/actuation mist for inhalation grams (Combivent Respimat) ondansetron 4 mg disintegrating 4 mg PO TID #90 tabs 06/26/22 tablet naloxone 4 mg/actuation nasal 4 mg intranasal Q3M PRN opioid 07/01/22 spray (Narcan) overdose #2 ea oxycodone 10 mg tablet 10 - 20 mg PO Q4H PRN pain #90 tabs 07/01/22 pltprtxwsivuulj-nwdzcau-GT 30 5 ml PO Q4H PRN cough #473 mL 07/01/22 mg-10 mg-100 mg/5 mL oral syrup docusate sodium 100 mg capsule 200 mg PO BID PRN opioids #180 caps 07/02/22 fentanyl 37.5 mcg/hour transdermal 1 patch transdermal Q72H #5 ea 07/02/22 patch sennosides 8.6 mg tablet (Natural 8.6 mg PO BID PRN constipation #60 07/02/22 Senna Laxative) tabs Allergies Allergy/AdvReac Type Severity Reaction Status Date / Time bee venom protein (honey bee) Allergy Intermediate Hives Verified 07/03/22 13:15 Penicillins Allergy Intermediate Hives Verified 07/03/22 13:15 hydrocodone Allergy ITCHING Verified 07/03/22 13:15 Review of Systems Review of Systems ROS Unobtainable: All systems reviewed & are unremarkable except as noted in HPI and below Patient History Medical History Adenocarcinoma of right lung, stage 4 Adrenal insufficiency BPH w urinary obs/LUTS Chest wall pain following surgery COVID-19 Diabetes History of colonic polyps Hypertension Shoulder impingement Tobacco consumption Surgical History H/O hand surgery (~2013) H/O shoulder surgery (~1997) History of lung surgery History of vascular access device Family History Father Prostate cancer Social History household members: spouse Smoking Status: Former smoker alcohol intake: current substance use type: does not use Smoking Status: Former smoker alcohol intake frequency: holidays/special occasions only Alcohol type: wine Substance Use Type: does not use Exam Narrative Exam Narrative: GENERAL: Alert and oriented x three, male in moderate respiratory distress. HEENT: Head normocephalic, atraumatic, EOMI, pupils reactive, face symmetric, moist mucous membranes NECK: Supple, full range of motion CARDIOVASCULAR: Tachycardic but regular rate and rhythm without murmurs, rubs or gallops. No JVD. No swelling bilateral lower extremities. RESPIRATORY: Breath sounds equal bilaterally, no wheezes, bilateral crackles throughout lungs, rhonchi bilaterally. Patient is tachypnea. Speaking in 2-3 words. Patient is on non-rebreather with DuoNeb actively running and is 89%. Patient has persistent cough through exam but is able to give history. ABDOMEN: Soft, nontender. Non-distended. Normoactive bowel sounds all 4 quadrants. No guarding or rebound, rigidity, no mass : No CVA tenderness EXTREMITIES: Normal range of motion, no clubbing or edema. Neurovascularly intact NEUROLOGICAL: Cranial nerves II through XII grossly intact. Moving all extremities SKIN: Warm, dry, no petechiae, no rashes or lesions. Initial Vital Signs Initial Vital Signs: Vital Signs Blood Pressure 142/77 H 07/03/22 13:03 Course Orders Ordered: ED Orders 07/03/22 13:00 Complete Blood Count AUTO DIFF Stat Comprehensive Metabolic Panel Stat Lactate (Lactic Acid) Stat NT-proBNP (BNP-Adult 18+) Stat Prothrombin Time INR Stat Troponin I Stat 07/03/22 13:05 Blood Culture Stat 07/03/22 13:11 XR chest 1V Stat EKG-12 Lead Stat 07/03/22 13:12 Respiratory Panel (Film Array) Stat 07/03/22 13:20 BiPAP Ventilatory Support RT PROTOCOL 07/03/22 13:22 CT angio chest PE protocol Stat 07/03/22 16:50 Hematocrit Stat Platelet Count Stat Prothrombin Time INR Stat Acetaminophen (Acetaminophen 325 Mg Tablet) 650 mg PO Q6H PRN PRN Reason: Fever/Mild Pain (1-3) Albuterol/Ipratropium (Albuterol/Ipratropium 3 Ml Ampul) 3 ml INH Q4H PRN PRN Reason: cough Aspirin (Aspirin Ec 81 Mg Tablet) 81 mg PO DAILY [facility] Dexamethasone (Dexamethasone 4 Mg/Ml Vial) 4 mg IV DAILY [facility] Dextrose (Dextrose 50 % In Water 25 Gm/50 Ml Syringe) 25 gm IV PRN PRN PRN Reason: Hypoglycemia Docusate Sodium (Docusate 100 Mg Capsule) 200 mg PO BID PRN PRN Reason: opioids Enoxaparin Sodium (Enoxaparin 40 Mg/0.4 Ml Syringe) 40 mg SUBCUT BID [facility] Fentanyl (Fentanyl 25 Mcg/Patch) 25 mcg TOP Q72H [facility] Last Admin: 07/03/22 17:04 Dose: 25 mcg Documented By: MS Furosemide (Furosemide 20 Mg/2 Ml Vial) 20 mg IV BID [facility] Gabapentin (Gabapentin 300 Mg Capsule) 300 mg PO TID [facility] Sodium Chloride (Normal Saline 0.9%) 1,000 mls @ 100 mls/hr IV CONT [facility] Last Admin: 07/03/22 16:56 Dose: 100 mls/hr Documented By: MS Remdesivir 100 mg/ Sodium (Chloride) 250 mls @ 250 mls/hr IV DAILY@1700 CINDI Stop: 07/07/22 17:59 Levofloxacin (Levaquin) 750 mg in 150 mls @ 100 mls/hr IV Q24H [facility] Insulin Human Lispro (Insulin Lispro 100 Unit/Ml 3ml Vial) 0 unit SUBCUT ACHS [facility]; Protocol Losartan Potassium (Losartan 25 Mg Tablet) 25 mg PO DAILY [facility] Naloxone HCl (Naloxone 0.4 Mg/Ml Vial) 0.2 mg IV Q2MIN PRN PRN Reason: Opiate Reversal Oxycodone HCl (Oxycodone Ir 10 Mg Tablet) 10 mg PO Q3H PRN PRN Reason: Pain, Severe (7-10) Oxycodone HCl (Oxycodone Ir 5 Mg Tablet) 5 mg PO Q3H PRN PRN Reason: Pain, Moderate (4-6) Sennosides (Sennosides 8.6 Mg Tablet) 8.6 mg PO BID PRN PRN Reason: constipation Tamsulosin HCl (Tamsulosin 0.4 Mg Capsule) 0.4 mg PO DAILY [facility] Discontinued Medications Dexamethasone (Dexamethasone 10 Mg/Ml Vial) 6 mg IV NOW ONE Stop: 07/03/22 15:54 Last Admin: 07/03/22 16:09 Dose: 6 mg Documented By: EVELIA Fentanyl (Fentanyl 25 Mcg/Patch) 1 mcg TOP Q72H [facility]INDI Fentanyl (Fentanyl 12 Mcg/Patch) 12 mcg TOP Q72H [facility] Gabapentin (Gabapentin 300 Mg Capsule) 300 mg PO BEDTIME [facility] Vancomycin HCl/Dextrose (Vancomycin) 1,500 mg in 300 mls @ 200 mls/hr IV NOW ONE Stop: 07/03/22 14:51 Last Infusion: 07/03/22 15:37 Dose: 0 mls/hr Documented By: Admin: 07/03/22 14:05 Dose: 200 mls/hr Documented By: EVELIA Remdesivir 200 mg/ Sodium (Chloride) 250 mls @ 250 mls/hr IV NOW ONE Stop: 07/03/22 16:52 Last Admin: 07/03/22 16:52 Dose: 250 mls/hr Documented By: Levofloxacin (Levaquin) 750 mg in 150 mls @ 100 mls/hr IV NOW ONE Stop: 07/03/22 17:23 Last Admin: 07/03/22 16:10 Dose: 100 mls/hr Documented By: EVELIA Methylprednisolone (Methylprednisolone 125 Mg/2 Ml Vial) 125 mg IV NOW ONE Stop: 07/03/22 13:18 Last Admin: 07/03/22 13:26 Dose: 125 mg Documented By: EVELIA Vital Signs Vital signs: Vital Signs - 8 hr 07/03/22 13:08 07/03/22 13:20 07/03/22 13:03 Temperature 99.4 F Pulse Rate 139 H Respiratory Rate 45 H Blood Pressure 142/77 H 142/77 H Pulse Oximetry 87 L Oxygen Delivery Method Aerosol Mask Oxygen Flow Rate Fraction of Inspired Oxygen 50 07/03/22 13:05 07/03/22 13:30 07/03/22 13:35 Temperature Pulse Rate 97 H 132 H 129 H Respiratory Rate 33 H 24 Blood Pressure Pulse Oximetry 89 L 95 97 Oxygen Delivery Method Nasal Cannula BiPAP Oxygen Flow Rate 7 Fraction of Inspired Oxygen 07/03/22 13:35 07/03/22 14:00 07/03/22 14:00 Temperature Pulse Rate 126 H Respiratory Rate 18 Blood Pressure 97/63 91/55 L Pulse Oximetry 95 Oxygen Delivery Method BiPAP Oxygen Flow Rate Fraction of Inspired Oxygen 07/03/22 14:08 07/03/22 14:08 07/03/22 14:30 Temperature Pulse Rate 119 H Respiratory Rate 16 Blood Pressure 100/64 96/61 Pulse Oximetry 97 Oxygen Delivery Method BiPAP Oxygen Flow Rate Fraction of Inspired Oxygen 07/03/22 14:30 07/03/22 15:00 07/03/22 15:00 Temperature Pulse Rate 115 H 107 H Respiratory Rate 17 16 Blood Pressure 104/56 L Pulse Oximetry 97 96 Oxygen Delivery Method BiPAP BiPAP Oxygen Flow Rate Fraction of Inspired Oxygen 07/03/22 15:30 07/03/22 15:30 Temperature Pulse Rate 110 H Respiratory Rate 27 H Blood Pressure 107/66 Pulse Oximetry 93 Oxygen Delivery Method Nasal Cannula Oxygen Flow Rate 6 Fraction of Inspired Oxygen MDM - SOB/Dyspnea Lab Data 07/03/22 16:50 07/03/22 13:00 Labs: Lab Results 07/03/22 07/03/22 07/03/22 Range/Units 13:00 13:00 13:00 WBC 9.3 (4.5-11.0) X10^3/uL RBC 4.09 L (4.5-5.9) X10^6/uL Hgb 12.3 L (13.5-17.5) g/dL Hct 36.5 L (41-53) % MCV 89.3 (80-100) fL MCH 30.0 (26-34) PG MCHC 33.6 (30-36) % RDW 13.3 (11.6-14.8) % Plt Count 309 (150-400) X10^3/uL Neut % (Auto) 76.1 H (50-75) % Lymph % (Auto) 11.8 L (25-40) % Pickett % (Auto) 10.2 (3-14) % Eos % (Auto) 1.2 L (2-4) % Baso % (Auto) 0.7 (0-2) % Neut # (Auto) 7100 H (4374-0691) /uL Lymph # (Auto) 1100 (8951-7479) /uL Pickett # (Auto) 900 (0-900) /uL Eos # (Auto) 100 (0-450) /uL Baso # (Auto) 100 (0-100) /uL PT 15.9 H (10.1-12.7) SECONDS INR 1.4 H (0.9-1.3) Sodium 128 L (137-145) mmol/L Potassium 4.4 (3.4-5.1) mmol/L Chloride 93 L (98-107) mmol/L Carbon Dioxide 25 (22-32) mmol/L BUN 10 (9-20) mg/dL Creatinine 0.74 (0.66-1.25) mg/dL Estimated GFR > 60 (>60) mL/min BUN/Creatinine Ratio 13.5 (6-22) Glucose 184 H (80-110) mg/dL Lactate (0.7-2.1) mmol/L Calcium 8.3 L (8.4-10.2) mg/dL Total Bilirubin 1.1 (0.2-1.3) mg/dL AST 39 (17-59) IU/L ALT 41 (<50) IU/L Alkaline Phosphatase 55 (38-126) U/L Troponin I < 0.012 (0.01-0.034) ng/mL NT-Pro-B Natriuret Pep 104 (<125) pg/mL Total Protein 7.4 (6.3-8.2) g/dL Albumin 3.7 (3.5-5.0) g/dL Globulin 3.7 (1.7-4.1) g/dL Albumin/Globulin Ratio 1.0 (1.0-2.8) Chlamy pneumoniae PCR (Not Detect) Adenovirus (PCR) (Not Detect) B. pertussis DNA (PCR) (Not Detecte) B.parapertussis DNA PCR (Not Detecte) Coronavirus OC43 (PCR) (Not Detect) Coronavirus HKU1 (PCR) (Not Detect) Coronavirus 229E (PCR) (Not Detect) SARS-CoV-2 (PCR) (Not Detecte) Coronavirus NL63 (PCR) (Not Detect) Human Metapneumovir PCR (Not Detect) Influenza Type A (PCR) (Not Detect) Influenza Type B (PCR) (Not Detect) M. pneumoniae (PCR) (Not Detect) Parainfluenza 1 (PCR) (Not Detect) Parainfluenza 2 (PCR) (Not Detect) Parainfluenza 3 (PCR) (Not Detect) Parainfluenza 4 (PCR) (Not Detect) RSV (PCR) (Not Detect) Entero/Rhino (PCR) (Not Detect) 07/03/22 07/03/22 07/03/22 Range/Units 13:00 13:12 15:30 WBC (4.5-11.0) X10^3/uL RBC (4.5-5.9) X10^6/uL Hgb (13.5-17.5) g/dL Hct (41-53) % MCV (80-100) fL MCH (26-34) PG MCHC (30-36) % RDW (11.6-14.8) % Plt Count (150-400) X10^3/uL Neut % (Auto) (50-75) % Lymph % (Auto) (25-40) % Pickett % (Auto) (3-14) % Eos % (Auto) (2-4) % Baso % (Auto) (0-2) % Neut # (Auto) (2245-0797) /uL Lymph # (Auto) (6657-1861) /uL Pickett # (Auto) (0-900) /uL Eos # (Auto) (0-450) /uL Baso # (Auto) (0-100) /uL PT (10.1-12.7) SECONDS INR (0.9-1.3) Sodium (137-145) mmol/L Potassium (3.4-5.1) mmol/L Chloride (98-107) mmol/L Carbon Dioxide (22-32) mmol/L BUN (9-20) mg/dL Creatinine (0.66-1.25) mg/dL Estimated GFR (>60) mL/min BUN/Creatinine Ratio (6-22) Glucose (80-110) mg/dL Lactate 3.2 H 2.3 H (0.7-2.1) mmol/L Calcium (8.4-10.2) mg/dL Total Bilirubin (0.2-1.3) mg/dL AST (17-59) IU/L ALT (<50) IU/L Alkaline Phosphatase (38-126) U/L Troponin I (0.01-0.034) ng/mL NT-Pro-B Natriuret Pep (<125) pg/mL Total Protein (6.3-8.2) g/dL Albumin (3.5-5.0) g/dL Globulin (1.7-4.1) g/dL Albumin/Globulin Ratio (1.0-2.8) Chlamy pneumoniae PCR Not detected (Not Detect) Adenovirus (PCR) Not detected (Not Detect) B. pertussis DNA (PCR) Not detected (Not Detecte) B.parapertussis DNA PCR Not detected (Not Detecte) Coronavirus OC43 (PCR) Not detected (Not Detect) Coronavirus HKU1 (PCR) Not detected (Not Detect) Coronavirus 229E (PCR) Not detected (Not Detect) SARS-CoV-2 (PCR) Detected H (Not Detecte) Coronavirus NL63 (PCR) Not detected (Not Detect) Human Metapneumovir PCR Not detected (Not Detect) Influenza Type A (PCR) Not detected (Not Detect) Influenza Type B (PCR) Not detected (Not Detect) M. pneumoniae (PCR) Not detected (Not Detect) Parainfluenza 1 (PCR) Not detected (Not Detect) Parainfluenza 2 (PCR) Not detected (Not Detect) Parainfluenza 3 (PCR) Not detected (Not Detect) Parainfluenza 4 (PCR) Not detected (Not Detect) RSV (PCR) Not detected (Not Detect) Entero/Rhino (PCR) Not detected (Not Detect) Imaging Data Chest x-ray: Radiologist's Impression: Close Chest CTA (Signed) Jayda Marcial - 07/03/22 Chest X-Ray (Signed) Zaira Kelley - 07/03/22 Shoulder X-Ray (Signed) Sonu Wiseman - 06/29/22 Shoulder MRI (Signed) Jayad Marcial - 06/29/22 Chest/Abdomen/Pelvis CT (Signed) Patrick Gary - 06/24/22 Chest X-Ray (Signed) Patrick Gary - 06/24/22 Chest X-Ray (Signed) Galdino Hernadez - 06/17/22 Chest CTA (Signed) Lisset Kessler - 06/09/22 Chest X-Ray (Signed) Shadi Martinez - 06/09/22 PET, Tumor Imaging Skull-Mid Thigh (Signed) Harsha Vick - 05/14/22 Brain MRI (Signed) Mark Anthony Baron - 05/13/22 Chest CTA (Signed) Jones Hernandez - 05/05/22 Chest X-Ray (Signed) Jones Hernandez - 05/05/[address] (Signed) Cj Tobias - 04/24/22 Chest X-Ray (Signed) Mark Anthony Baron - 04/04/22 Chest X-Ray (Signed) NicanorMiladdiane - 03/26/22 Chest X-Ray (Signed) Zaira Kelley - 03/13/22 Chest/Abdomen/Pelvis CT (Signed) Mark Anthony Baron - 02/21/22 Chest/Abdomen/Pelvis CT (Signed) Zaira Kelley - 11/21/21 Chest/Abdomen/Pelvis CT (Signed) Priscilla Baez - 08/20/21 Telemetry Strips 07/18/21 Chest/Abdomen/Pelvis CT (Signed) Priscilla Baez - 07/18/21 Chest X-Ray (Signed) Patrick Gary - 07/18/21 Chest CTA (Signed) Call,Galdino - 06/30/21 Chest X-Ray (Signed) Call,Galdino - 06/30/21 EKG Rpt. 06/30/21 Brain MRI (Signed) Patrick Gary - 02/28/21 Chest/Abdomen/Pelvis CT (Signed) Rito Marcial - 02/27/21 Chest/Abdomen/Pelvis CT (Signed) Rito Marcial - 10/08/20 Chest/Abdomen/Pelvis CT (Signed) Lisset Kessler - 05/17/20 Brain MRI (Signed) Harsha Vick - 03/15/20 Abdomen/Pelvis CT (Signed) Call,Galdino - 11/15/19 Chest X-Ray (Signed) Eduardo Ingram - 11/15/19 Telemetry Strips 10/19/19 Telemetry Strips 10/19/19 Chest CTA (Signed) Jones Hernandez - 10/19/19 Abdomen/Pelvis CT (Signed) Jones Hernandez - 10/19/19 Chest X-Ray (Signed) Jones Hernandez - 10/19/19 Chest/Abdomen CT (Signed) Cj Mendes - 09/30/19 Chest/Abdomen CT (Signed) Eduardo Ingram - 08/15/19 Chest X-Ray (Signed) Bob Alcocer - 03/03/20 Brain MRI (Signed) Zaira Kelley - 05/13/19 Chest/Abdomen/Pelvis CT (Addendum) Priscilla Baez - 03/06/19 Chest X-Ray (Signed) Eduardo Ingram - 03/06/[address] (Signed) Priscilla Baez - 03/06/19 Abdomen Ultrasound (Signed) Priscilla Baez - 03/06/19 Launch?Image [address] [address] XRay Report Signed Patient: Anmol Hinojosa MR#: [id number] : 1955 Acct:[id number] Age/Sex: 67 / M Date of Service: 07/03/22 Loc: ED Accession Number: [id number] ?? Procedure: XR chest 1V Ordering Provider: Nubia Woodward D.O. PROCEDURE:? XR CHEST 1V ? INDICATIONS:? Shortness of breath ? TECHNIQUE:? One view of the chest was acquired.? ? COMPARISON:? [facility], CR, XR CHEST 2V, 06/24/2022, 9:13. ? FINDINGS:? ? Surgical changes and devices:? Left-sided Port-A-Cath is unchanged. ? Lungs and pleura:? There is near complete opacification of the right hemithorax, increased compared to prior exam.? Patchy areas of opacity are present within the left hemithorax relatively stable. ? Mediastinum:? Mediastinal contours appear normal.? Heart size is enlarged. ? Bones and chest wall:? No suspicious bony lesions.? Overlying soft tissues appear unremarkable.? ? IMPRESSION:? Worsened appearance of opacification within the right hemithorax which may represent pneumonia fusion and or other etiology. ? ? Dictated by: Zaira Kelley M.D. on 07/03/2022 at 13:25 ? ? Approved by: Zaira Kelley M.D. on 07/03/2022 at 13:27?? CT scan - chest: Radiologist's Impression: [address] [address] [address] Scan Report Signed Patient: Anmol Hinojosa MR#: [id number] : 1955 Acct:[id number] Age/Sex: 67 / M Date of Service: 07/03/22 Loc: ED Accession Number: [id number] ?? Procedure: CT angio chest PE protocol Ordering Provider: Nubia Woodward D.O. PROCEDURE:? CT ANGIO CHEST PE PROTOCOL ? INDICATIONS:? Low O2, bilateral crackles, known lung ca ? TECHNIQUE:? After the administration of intravenous contrast, 2 mm thick sections acquired from the pulmonary apices to the posterior costophrenic angles.? 3-dimensional maximum intensity projection (MIP) coronal and sagittal reformats were then acquired through the thorax.? For radiation dose reduction, the following was used:? automated exposure control, adjustment of mA and/or kV according to patient size.? ? COMPARISON:? [facility], CT, CT CHEST ABD PEL W CON, 06/24/2022, 10:06.? [facility], NM, NM PET CT FUSION SKULL 2 THIGH, 05/14/2022, 8:01.? [facility], CR, XR CHEST 1V, 07/03/2022, 13:08.? [facility], CT, CT ANGIO CHEST PE PROTOCOL, 06/09/2022, 17:52. ? FINDINGS:? Image quality:? Excellent.? ? Pulmonary arteries:? There is suboptimal opacification of central pulmonary arteries.? Pulmonary arteries are normal in size, and demonstrate no intraluminal filling defects to suggest central pulmonary embolism.? ? Lungs and pleura:? Bilateral interstitial and airspace infiltrates, increased compared to the last exam.? Right basilar consolidation or atelectasis.? No pleural effusions or pneumothorax.? There is a obstruction of the right lower lobe bronchus either by endobronchial mass or mucous material.? ? Mediastinum:? Heart size is normal, without pericardial effusion.? There is mediastinal and hilar adenopathy, unchanged.? Thoracic aorta is normal in caliber and enhancement.? Esophagus is normal in caliber, without hiatal hernia.? ? Bones and chest wall:? No suspicious bony lesions.? Ribs and thoracic spine appear intact throughout.? Thyroid gland is unremarkable.? No axillary or supraclavicular adenopathy.? ? Abdomen:? Mild hepatomegaly.? Visualized upper abdominal solid organs appear normal in the early arterial phase of enhancement.? ? IMPRESSION:? ? 1. Suboptimal opacification of central pulmonary arteries.? No definitive pulmonary embolism.? 2. Increased pleural thickening in right hemithorax consistent with worsening of pleural metastasis. 3. Increased bilateral interstitial and airspace opacities are likely a combination of pneumonia and lymphangitic carcinomatosis.? 4. Mediastinal and hilar lymphadenopathy, compatible with trinh metastases.? Dictated by: Jayda Marcial M.D. on 07/03/2022 at 14:11 ? ? Approved by: Jayda Marcial M.D. on 07/03/2022 at 14:31?? ECG Data Attestation: I personally reviewed and interpreted this ECG as follows: Prior ECG tracings: available for review Interpretation: Sinus tachycardia rate of 130 MN 146 QRS is 74 QTC of 438. No acute ST elevation or depression appreciated patient has prior from 06/09/2022 which appears similar in terms of ST segments. MDM Narrative Medical decision making narrative: This is a 67-year-old male with known right lung adenocarcinoma who presents with increasing shortness of breath, hypoxia and cough, occasional hemoptysis but very small amounts. Patient has been afebrile but had worsening symptoms slowly worsening cough and then much worse over the past 24 hours. Patient is in quite a bit of distress, chest x-ray shows right lung has significant change so patient was placed on BiPAP for some alveolar recruitment, on non-rebreather with DuoNeb patient was still 89% patient's work of breathing significantly improved after this he was trialed off and continued to be hypoxic even on nasal cannula so was placed on high-flow he does not seem to be requiring BiPAP at this time. Patient appears to have infectious etiology on top of his poor lung function and probably prior emphysema as well from tobacco abuse. Patient has elevated neutrophils on percentage but normal white count, platelets are appropriate, hemoglobin is 12, patient has mild hyponatremia at 1:28 a.m. normal renal function, potassium lactate 3.2 improved on repeat at 2.3. Troponin and BNP are both negative. Patient is COVID positive, PE scan was obtained as he has hypoxia, tachycardia and has known lung cancer was slightly suboptimal but no pulmonary emboli appreciated with cancer changes and overlying infectious changes appreciated. Patient covered with antibiotics although suspect this is more COVID related. Discussed with Dr. Miguel who accepts for admission. Patient had received Solu-Medrol will add remdesivir as well as dexamethasone and admit. Critical Care Time Critical Care Time Critical Care Time: Yes Total Critical Care Time: 45 Attestation: The high probability of a clinically significant, sudden or life threatening deterioration of the [] system(s) required my full and direct attention, intervention and personal management. The aggregate critical care time was [] minutes. This time is in addition to time spent performing reported procedures but includes the following: [x] Data Review and interpretation [x] Patient assessment and monitoring of vital signs [x] Documentation [x] Medication orders and management Discharge Plan Departure Patient Disposition: Admitted As Inpatient Clinical Impression: Acute respiratory failure with hypoxia, COVID-19 virus infection, Adenocarcinoma of lung Admit Date/Time: 07/03/22 15:54 Admit Provider: Jones Miguel
[2022-07-03 15:13] LABS: Reflexed Lactate in 2 Hours Y
[2022-07-03 15:51] LABS: Lactate 2HR (Lactic Acid Rflx) 2.3 mmol/L (0.7-2.1)
[2022-07-03] MEDS: DEXAMETHASONE 10 MG/ML VIAL 6 MG IV (16:09)
[2022-07-03] MEDS: levoFLOXacin 750 MG/150 ML PIGGYBACK 100 MG IV (16:10)
--- NOTE | 2022-07-03 16:34 | PM.HP.1 ---
History of Present Illness History of Present Illness Date Patient Seen: 07/03/22 Time Patient Seen: 16:59 Chief complaint: Weakness x3 days,low O2 sat Narrative: 67-year-old with right lung cancer stage IV diagnosed back in 2019 patient has had progression of his disease and worsening shortness of breath has right pleural of right lung and possibly left lung as well patient is undergoing rebiopsy of his lung. Patient has additional medical history consistent with hypertension diabetes BPH. Patient has been seen by Oncology here and followed by Dr. Flaherty. Patient received Keytruda infusion earlier this week and said it would not him down he felt very weak and tired. Was anticipating further lung biopsy. Patient has not been able to do so because of significant shortness of breath. Patient states he takes inhalers at home has not been on oxygen and takes pain medication. Says he has been feeling unwell since March and is progressively getting worse. Patient presented to the emergency department with 2-3 days of worsening shortness of breath with significant increased work of breathing and hypoxia. Patient arrived to the emergency department and his pulse ox was in the mid 80s. Was tachycardic and his blood pressure was low. Patient was placed on BiPAP and had laboratory testing done. Laboratory testing revealed a normal white blood cell count mild anemia elevated blood glucose low-sodium normal BNP respiratory panels detected COVID. Patient CT scan shows increased pleural thickening in of right hemithorax increased bilateral interstitial airspace consistent with pneumonia and carcinomatosis mediastinal and hilar lymphadenopathy. On my evaluation patient is short of breath with increased work of breathing he has high-flow nasal cannula in. He is communicating well. He says he is short of breath and he is thirsty. His blood pressure and vital signs have improved since emergency department. Patient states he received Keytruda. He is had no fevers chills chest pain he is weak everywhere he is a little bit nauseated and he is hoping to start on his medications. Patient states he has good urine flow and has not had a bowel movement for couple of days PFSH Medical History Adenocarcinoma of right lung, stage 4 Adrenal insufficiency BPH w urinary obs/LUTS Chest wall pain following surgery COVID-19 Diabetes History of colonic polyps Hypertension Shoulder impingement Tobacco consumption Surgical History H/O hand surgery (~2013) H/O shoulder surgery (~1997) History of lung surgery History of vascular access device Family History Father Prostate cancer Social History household members: spouse Smoking Status: Former smoker alcohol intake: current substance use type: does not use Meds Home Medications and Allergies Home Medications Medication Instructions Recorded Confirmed Type sildenafil 100 mg tablet 50 - 100 mg PO DAILY PRN sexual 09/13/21 06/26/22 Rx activity #10 tabs losartan 25 mg tablet 25 mg PO DAILY #90 tabs 10/14/21 07/03/22 Rx guaifenesin 1,200 mg tablet, 1,200 mg PO BID 05/09/22 06/26/22 History extended release 12 hr (Mucinex) aspirin 81 mg capsule 81 mg PO DAILY 06/17/22 07/03/22 History tamsulosin 0.4 mg capsule 0.4 mg PO DAILY #90 caps 06/19/22 07/03/22 Rx gabapentin 300 mg capsule 300 mg PO .COMPLEX #90 caps 06/25/22 07/03/22 Rx prednisone 10 mg tablet 10 mg PO DAILY 06/25/22 07/03/22 History dextromethorphan HBr 15 mg capsule 15 mg PO .HS PRN cough #60 caps 06/26/22 07/03/22 Rx guaifenesin 1,200 mg tablet, 1,200 mg PO BID #60 tabs 06/26/22 06/26/22 Rx extended release 12 hr hydroxyzine HCl 50 mg tablet 100 mg PO QID PRN itching #180 tabs 06/26/22 07/03/22 Rx ipratropium 20 mcg-albuterol 100 1 puff inhalation Q4H PRN cough #4 06/26/22 07/03/22 Rx mcg/actuation mist for inhalation grams (Combivent Respimat) ondansetron 4 mg disintegrating 4 mg PO TID #90 tabs 06/26/22 07/03/22 Rx tablet naloxone 4 mg/actuation nasal 4 mg intranasal Q3M PRN opioid 07/01/22 07/03/22 Rx spray (Narcan) overdose #2 ea oxycodone 10 mg tablet 10 - 20 mg PO Q4H PRN pain #90 tabs 07/01/22 07/03/22 Rx awdmholnpbhuwtl-[id number]-OK 30 5 ml PO Q4H PRN cough #473 mL 07/01/22 07/03/22 Rx mg-10 mg-100 mg/5 mL oral syrup docusate sodium 100 mg capsule 200 mg PO BID PRN opioids #180 caps 07/02/22 07/03/22 Rx fentanyl 37.5 mcg/hour transdermal 1 patch transdermal Q72H #5 ea 07/02/22 07/03/22 Rx patch sennosides 8.6 mg tablet (Natural 8.6 mg PO BID PRN constipation #60 07/02/22 07/03/22 Rx Senna Laxative) tabs Allergies Allergy/AdvReac Type Severity Reaction Status Date / Time bee venom protein (honey bee) Allergy Intermediate Hives Verified 07/03/22 13:15 Penicillins Allergy Intermediate Hives Verified 07/03/22 13:15 hydrocodone Allergy ITCHING Verified 07/03/22 13:15 Exam Vital Signs (past 8 hours): - 07/03/22 13:08 07/03/22 13:20 07/03/22 13:03 Temperature 99.4 F Pulse Rate 139 H Respiratory Rate 45 H Blood Pressure 142/77 H 142/77 H Pulse Oximetry 87 L Oxygen Delivery Method Aerosol Mask Oxygen Flow Rate Fraction of Inspired Oxygen 50 07/03/22 13:05 07/03/22 13:30 07/03/22 13:35 Temperature Pulse Rate 97 H 132 H 129 H Respiratory Rate 33 H 24 Blood Pressure Pulse Oximetry 89 L 95 97 Oxygen Delivery Method Nasal Cannula BiPAP Oxygen Flow Rate 7 Fraction of Inspired Oxygen 07/03/22 13:35 07/03/22 14:00 07/03/22 14:00 Temperature Pulse Rate 126 H Respiratory Rate 18 Blood Pressure 97/63 91/55 L Pulse Oximetry 95 Oxygen Delivery Method BiPAP Oxygen Flow Rate Fraction of Inspired Oxygen 07/03/22 14:08 07/03/22 14:08 07/03/22 14:30 Temperature Pulse Rate 119 H Respiratory Rate 16 Blood Pressure 100/64 96/61 Pulse Oximetry 97 Oxygen Delivery Method BiPAP Oxygen Flow Rate Fraction of Inspired Oxygen 07/03/22 14:30 07/03/22 15:00 07/03/22 15:00 Temperature Pulse Rate 115 H 107 H Respiratory Rate 17 16 Blood Pressure 104/56 L Pulse Oximetry 97 96 Oxygen Delivery Method BiPAP BiPAP Oxygen Flow Rate Fraction of Inspired Oxygen 07/03/22 15:30 07/03/22 15:30 07/03/22 15:59 Temperature Pulse Rate 110 H 105 H Respiratory Rate 27 H 28 H Blood Pressure 107/66 107/66 Pulse Oximetry 93 92 Oxygen Delivery Method Nasal Cannula Oxygen Flow Rate 6 Fraction of Inspired Oxygen 07/03/22 16:00 07/03/22 16:00 Temperature Pulse Rate 104 H Respiratory Rate 13 Blood Pressure 111/61 Pulse Oximetry 91 Oxygen Delivery Method High Flow Nasal Cannula Oxygen Flow Rate Fraction of Inspired Oxygen Fraction of Inspired Oxygen 50 Oxygen Delivery Method High Flow Nasal Cannula Oxygen Flow Rate 6 Narrative Exam Narrative: Gen.: Alert good historian HEENT: Pupils equal round and reactive oral mucosa is dry Cardio: S1-S2 regular rate and rhythm no murmurs appreciated. Respiratory: Increased work of breathing with rhonchorous breath sounds Abdomen: Soft distended Extremities: Warm dry perfused Neurologic: Grossly intact. Objective Labs 07/03/22 13:00 07/03/22 13:00 Labs: Laboratory Results - last 24 hr 07/03/22 07/03/22 07/03/22 13:00 13:00 13:00 WBC 9.3 RBC 4.09 L Hgb 12.3 L Hct 36.5 L MCV 89.3 MCH 30.0 MCHC 33.6 RDW 13.3 Plt Count 309 Neut % (Auto) 76.1 H Lymph % (Auto) 11.8 L [place] % (Auto) 10.2 Eos % (Auto) 1.2 L Baso % (Auto) 0.7 Neut # (Auto) 7100 H Lymph # (Auto) 1100 [place] # (Auto) 900 Eos # (Auto) 100 Baso # (Auto) 100 PT 15.9 H INR 1.4 H Sodium 128 L Potassium 4.4 Chloride 93 L Carbon Dioxide 25 BUN 10 Creatinine 0.74 Estimated GFR > 60 BUN/Creatinine Ratio 13.5 Glucose 184 H Lactate Calcium 8.3 L Total Bilirubin 1.1 AST 39 ALT 41 Alkaline Phosphatase 55 Troponin I < 0.012 NT-Pro-B Natriuret Pep 104 Total Protein 7.4 Albumin 3.7 Globulin 3.7 Albumin/Globulin Ratio 1.0 Chlamy pneumoniae PCR Adenovirus (PCR) B. pertussis DNA (PCR) B.parapertussis DNA PCR Coronavirus OC43 (PCR) Coronavirus HKU1 (PCR) Coronavirus 229E (PCR) SARS-CoV-2 (PCR) Coronavirus NL63 (PCR) Human Metapneumovir PCR Influenza Type A (PCR) Influenza Type B (PCR) M. pneumoniae (PCR) Parainfluenza 1 (PCR) Parainfluenza 2 (PCR) Parainfluenza 3 (PCR) Parainfluenza 4 (PCR) RSV (PCR) Entero/Rhino (PCR) 07/03/22 07/03/22 07/03/22 13:00 13:12 15:30 WBC RBC Hgb Hct MCV MCH MCHC RDW Plt Count Neut % (Auto) Lymph % (Auto) [place] % (Auto) Eos % (Auto) Baso % (Auto) Neut # (Auto) Lymph # (Auto) [place] # (Auto) Eos # (Auto) Baso # (Auto) PT INR Sodium Potassium Chloride Carbon Dioxide BUN Creatinine Estimated GFR BUN/Creatinine Ratio Glucose Lactate 3.2 H 2.3 H Calcium Total Bilirubin AST ALT Alkaline Phosphatase Troponin I NT-Pro-B Natriuret Pep Total Protein Albumin Globulin Albumin/Globulin Ratio Chlamy pneumoniae PCR Not detected Adenovirus (PCR) Not detected B. pertussis DNA (PCR) Not detected B.parapertussis DNA PCR Not detected Coronavirus OC43 (PCR) Not detected Coronavirus HKU1 (PCR) Not detected Coronavirus 229E (PCR) Not detected SARS-CoV-2 (PCR) Detected H Coronavirus NL63 (PCR) Not detected Human Metapneumovir PCR Not detected Influenza Type A (PCR) Not detected Influenza Type B (PCR) Not detected M. pneumoniae (PCR) Not detected Parainfluenza 1 (PCR) Not detected Parainfluenza 2 (PCR) Not detected Parainfluenza 3 (PCR) Not detected Parainfluenza 4 (PCR) Not detected RSV (PCR) Not detected Entero/Rhino (PCR) Not detected Assessment & Plan Assessment and plan (1) Acute respiratory failure with hypoxia: Status: Acute Plan Acute respiratory failure due to underlying COVID and lung cancer. Oxygen therapy per respiratory protocol. He was on BiPAP and now heated high-flow. Continue to titrate oxygen status to keep respiratory rate and oxygen level above 88%. Patient desires intubation if respiratory status declines we will provide steroids antibiotics and COVID pneumonia treatment. Will have an ICU consultation in case patient's respiratory status declines and needs intubation. Pneumonia COVID patient with COVID pneumonia requiring high-flow oxygen and respiratory support will start dexamethasone and remdesivir. Patient has a normal white blood cell count will prophylactically treat him with IV antibiotics with Levaquin as he is immune compromise due to his lung cancer. Provide oxygen nebulizer treatments as needed. Lung cancer adenocarcinoma stage IV recurrence currently undergoing chemotherapy and rebiopsy status. CT scan shows worsening disease with hilar lymphadenopathy. Hypertension patient is mildly hypotensive we will restart his blood pressure medication when blood pressure stabilized Diabetes history. Patient currently not on any medication. Will monitor blood sugars and provide insulin sliding scale coverage as needed to prevent hyperglycemia from his steroids. Cancerous pain. Patient on oxycodone and a fentanyl patch these will be restarted during his hospital stay DVT prophylaxis. Patient will be put on high-dose Lovenox due to his COVID positivity lung cancer he will be placed on 40 mg subQ b.i.d. Condition. Patient quite sick requiring high-level care and ICU admission anticipate hospitalization for multiple days. ICU consultation appreciated
[2022-07-03] MEDS: REMDESIVIR 200 MG in SODIUM CHLORIDE 0.9% 210 ML 250 MG IV (16:52)
[2022-07-03] MEDS: SODIUM CHLORIDE 0.9% 1,000 ML 100 ML IV (16:56)
[2022-07-03 17:01] LABS: Hematocrit 34.7 % (41-53); Platelet Count 280 X10^3/uL (150-400)
[2022-07-03] MEDS: fentaNYL 25 MCG/PATCH TOP (17:04)
[2022-07-03 17:12] LABS: INR 1.4 (0.9-1.3); Prothrombin Time 15.8 SECONDS (10.1-12.7)
--- NOTE | 2022-07-03 18:13 | PM.CN.EICU ---
History of Present Illness Consult details IF CAMERA ACTIVATED, patient seen via real-time interactive audiovisual communication: Camera activated Date Patient Seen: 07/03/22 Chief complaint: Weakness x3 days,low O2 sat Reason for consult: Acute hypoxemia respiratory failure Requesting provider: Jones Miguel Consent obtained for tele-otr owner operator care: Yes Patient Location: ICU Provider location (State): [place] Other participants/roles: Bedside RN and Dr. Miguel Narrative: Patient is a 67 year old male with history of stage IV lung cancer on keytruda who presents with shortness of breath and generalize weakness. On presentation he was found to be hypoxemia. CT chest showed R pleural thickening with airspace disease. In ER he was placed on BiPAP and transitioned to HFNC. Respiratory viral panel came back positive for COVID -19. Started on decadron, remdesivir, and levaquin. Admitted to ICU for further management. In ICU, patient is awake and following commands. On HFNC 40/50%/ PFSH Medical History Adenocarcinoma of right lung, stage 4 Adrenal insufficiency BPH w urinary obs/LUTS Chest wall pain following surgery COVID-19 Diabetes History of colonic polyps Hypertension Shoulder impingement Tobacco consumption Surgical History H/O hand surgery (~2013) H/O shoulder surgery (~1997) History of lung surgery History of vascular access device Family History Father Prostate cancer Social History household members: spouse Smoking Status: Former smoker alcohol intake: current substance use type: does not use Current Medications Current Medications Medications: Home Medications sildenafil 100 mg tablet 50 - 100 mg PO DAILY PRN sexual activity #10 tabs 09/13/21 [Rx Confirmed 06/26/22] losartan 25 mg tablet 25 mg PO DAILY #90 tabs 10/14/21 [Rx Confirmed 07/03/22] guaifenesin 1,200 mg tablet, extended release 12 hr (Mucinex) 1,200 mg PO BID 05/09/22 [History Confirmed 06/26/22] aspirin 81 mg capsule 81 mg PO DAILY 06/17/22 [History Confirmed 07/03/22] tamsulosin 0.4 mg capsule 0.4 mg PO DAILY #90 caps 06/19/22 [Rx Confirmed 07/03/22] gabapentin 300 mg capsule 300 mg PO .COMPLEX #90 caps 06/25/22 [Rx Confirmed 07/03/22] prednisone 10 mg tablet 10 mg PO DAILY 06/25/22 [History Confirmed 07/03/22] dextromethorphan HBr 15 mg capsule 15 mg PO .HS PRN cough #60 caps 06/26/22 [Rx Confirmed 07/03/22] guaifenesin 1,200 mg tablet, extended release 12 hr 1,200 mg PO BID #60 tabs 06/26/22 [Rx Confirmed 06/26/22] hydroxyzine HCl 50 mg tablet 100 mg PO QID PRN itching #180 tabs 06/26/22 [Rx Confirmed 07/03/22] ipratropium 20 mcg-albuterol 100 mcg/actuation mist for inhalation (Combivent Respimat) 1 puff inhalation Q4H PRN cough #4 grams 06/26/22 [Rx Confirmed 07/03/22] ondansetron 4 mg disintegrating tablet 4 mg PO TID #90 tabs 06/26/22 [Rx Confirmed 07/03/22] naloxone 4 mg/actuation nasal spray (Narcan) 4 mg intranasal Q3M PRN opioid overdose #2 ea 07/01/22 [Rx Confirmed 07/03/22] oxycodone 10 mg tablet 10 - 20 mg PO Q4H PRN pain #90 tabs 07/01/22 [Rx Confirmed 07/03/22] moqxkwdkkmdyjfg-kcdpqln-AZ 30 mg-10 mg-100 mg/5 mL oral syrup 5 ml PO Q4H PRN cough #473 mL 07/01/22 [Rx Confirmed 07/03/22] docusate sodium 100 mg capsule 200 mg PO BID PRN opioids #180 caps 07/02/22 [Rx Confirmed 07/03/22] fentanyl 37.5 mcg/hour transdermal patch 1 patch transdermal Q72H #5 ea 07/02/22 [Rx Confirmed 07/03/22] sennosides 8.6 mg tablet (Natural Senna Laxative) 8.6 mg PO BID PRN constipation #60 tabs 07/02/22 [Rx Confirmed 07/03/22] Visit Medications (administered) Generic Name Dose Route Start Last Admin Trade Name Freq PRN Reason Stop Dose Admin Fentanyl 25 mcg 07/03/22 17:00 07/03/22 17:04 Fentanyl 25 Mcg/Patch TOP 25 mcg Q72H CINDI Administration Sodium Chloride 1,000 mls @ 100 mls/hr 07/03/22 16:45 07/03/22 16:56 Normal Saline 0.9% IV 100 mls/hr CONT CINDI Administration Exam Vital Signs (past 8 hours): - 07/03/22 13:08 07/03/22 13:20 07/03/22 13:03 Temperature 99.4 F Pulse Rate 139 H Respiratory Rate 45 H Blood Pressure 142/77 H 142/77 H Pulse Oximetry 87 L Oxygen Delivery Method Aerosol Mask Oxygen Flow Rate Fraction of Inspired Oxygen 50 07/03/22 13:05 07/03/22 13:30 07/03/22 13:35 Temperature Pulse Rate 97 H 132 H 129 H Respiratory Rate 33 H 24 Blood Pressure Pulse Oximetry 89 L 95 97 Oxygen Delivery Method Nasal Cannula BiPAP Oxygen Flow Rate 7 Fraction of Inspired Oxygen 07/03/22 13:35 07/03/22 14:00 07/03/22 14:00 Temperature Pulse Rate 126 H Respiratory Rate 18 Blood Pressure 97/63 91/55 L Pulse Oximetry 95 Oxygen Delivery Method BiPAP Oxygen Flow Rate Fraction of Inspired Oxygen 07/03/22 14:08 07/03/22 14:08 07/03/22 14:30 Temperature Pulse Rate 119 H Respiratory Rate 16 Blood Pressure 100/64 96/61 Pulse Oximetry 97 Oxygen Delivery Method BiPAP Oxygen Flow Rate Fraction of Inspired Oxygen 07/03/22 14:30 07/03/22 15:00 07/03/22 15:00 Temperature Pulse Rate 115 H 107 H Respiratory Rate 17 16 Blood Pressure 104/56 L Pulse Oximetry 97 96 Oxygen Delivery Method BiPAP BiPAP Oxygen Flow Rate Fraction of Inspired Oxygen 07/03/22 15:30 07/03/22 15:30 07/03/22 15:59 Temperature Pulse Rate 110 H 105 H Respiratory Rate 27 H 28 H Blood Pressure 107/66 107/66 Pulse Oximetry 93 92 Oxygen Delivery Method Nasal Cannula Oxygen Flow Rate 6 Fraction of Inspired Oxygen 07/03/22 16:00 07/03/22 16:00 07/03/22 16:20 Temperature 97.6 F Pulse Rate 104 H 109 H Respiratory Rate 13 21 Blood Pressure 111/61 108/58 L Pulse Oximetry 91 91 Oxygen Delivery Method High Flow Nasal Cannula Oxygen Flow Rate 40 Fraction of Inspired Oxygen 0.50 07/03/22 16:41 07/03/22 16:41 07/03/22 17:02 Temperature Pulse Rate 109 H 104 H Respiratory Rate 28 H 30 H Blood Pressure 108/58 L Pulse Oximetry 86 L 92 Oxygen Delivery Method Oxygen Flow Rate Fraction of Inspired Oxygen 07/03/22 17:02 07/03/22 17:04 07/03/22 17:00 Temperature Pulse Rate 103 H 104 H Respiratory Rate 36 H 34 H Blood Pressure 106/56 L Pulse Oximetry 91 93 Oxygen Delivery Method Oxygen Flow Rate Fraction of Inspired Oxygen 07/03/22 17:17 Temperature Pulse Rate Respiratory Rate Blood Pressure Pulse Oximetry Oxygen Delivery Method High Flow Nasal Cannula Oxygen Flow Rate Fraction of Inspired Oxygen Fraction of Inspired Oxygen 0.50 Oxygen Delivery Method High Flow Nasal Cannula Oxygen Flow Rate 40 Narrative Exam Narrative: On HFNC and following commands. Objective Labs 07/03/22 16:50 07/03/22 13:00 Labs: Laboratory Results - last 24 hr 07/03/22 07/03/22 07/03/22 13:00 13:00 13:00 WBC 9.3 RBC 4.09 L Hgb 12.3 L Hct 36.5 L MCV 89.3 MCH 30.0 MCHC 33.6 RDW 13.3 Plt Count 309 Neut % (Auto) 76.1 H Lymph % (Auto) 11.8 L [place] % (Auto) 10.2 Eos % (Auto) 1.2 L Baso % (Auto) 0.7 Neut # (Auto) 7100 H Lymph # (Auto) 1100 [place] # (Auto) 900 Eos # (Auto) 100 Baso # (Auto) 100 PT 15.9 H INR 1.4 H Sodium 128 L Potassium 4.4 Chloride 93 L Carbon Dioxide 25 BUN 10 Creatinine 0.74 Estimated GFR > 60 BUN/Creatinine Ratio 13.5 Glucose 184 H Lactate Calcium 8.3 L Total Bilirubin 1.1 AST 39 ALT 41 Alkaline Phosphatase 55 Troponin I < 0.012 NT-Pro-B Natriuret Pep 104 Total Protein 7.4 Albumin 3.7 Globulin 3.7 Albumin/Globulin Ratio 1.0 Chlamy pneumoniae PCR Adenovirus (PCR) B. pertussis DNA (PCR) B.parapertussis DNA PCR Coronavirus OC43 (PCR) Coronavirus HKU1 (PCR) Coronavirus 229E (PCR) SARS-CoV-2 (PCR) Coronavirus NL63 (PCR) Human Metapneumovir PCR Influenza Type A (PCR) Influenza Type B (PCR) M. pneumoniae (PCR) Parainfluenza 1 (PCR) Parainfluenza 2 (PCR) Parainfluenza 3 (PCR) Parainfluenza 4 (PCR) RSV (PCR) Entero/Rhino (PCR) 07/03/22 07/03/22 07/03/22 13:00 13:12 15:30 WBC RBC Hgb Hct MCV MCH MCHC RDW Plt Count Neut % (Auto) Lymph % (Auto) [place] % (Auto) Eos % (Auto) Baso % (Auto) Neut # (Auto) Lymph # (Auto) [place] # (Auto) Eos # (Auto) Baso # (Auto) PT INR Sodium Potassium Chloride Carbon Dioxide BUN Creatinine Estimated GFR BUN/Creatinine Ratio Glucose Lactate 3.2 H 2.3 H Calcium Total Bilirubin AST ALT Alkaline Phosphatase Troponin I NT-Pro-B Natriuret Pep Total Protein Albumin Globulin Albumin/Globulin Ratio Chlamy pneumoniae PCR Not detected Adenovirus (PCR) Not detected B. pertussis DNA (PCR) Not detected B.parapertussis DNA PCR Not detected Coronavirus OC43 (PCR) Not detected Coronavirus HKU1 (PCR) Not detected Coronavirus 229E (PCR) Not detected SARS-CoV-2 (PCR) Detected H Coronavirus NL63 (PCR) Not detected Human Metapneumovir PCR Not detected Influenza Type A (PCR) Not detected Influenza Type B (PCR) Not detected M. pneumoniae (PCR) Not detected Parainfluenza 1 (PCR) Not detected Parainfluenza 2 (PCR) Not detected Parainfluenza 3 (PCR) Not detected Parainfluenza 4 (PCR) Not detected RSV (PCR) Not detected Entero/Rhino (PCR) Not detected 07/03/22 07/03/22 16:50 16:50 WBC RBC Hgb Hct 34.7 L MCV MCH MCHC RDW Plt Count 280 Neut % (Auto) Lymph % (Auto) [place] % (Auto) Eos % (Auto) Baso % (Auto) Neut # (Auto) Lymph # (Auto) [place] # (Auto) Eos # (Auto) Baso # (Auto) PT 15.8 H INR 1.4 H Sodium Potassium Chloride Carbon Dioxide BUN Creatinine Estimated GFR BUN/Creatinine Ratio Glucose Lactate Calcium Total Bilirubin AST ALT Alkaline Phosphatase Troponin I NT-Pro-B Natriuret Pep Total Protein Albumin Globulin Albumin/Globulin Ratio Chlamy pneumoniae PCR Adenovirus (PCR) B. pertussis DNA (PCR) B.parapertussis DNA PCR Coronavirus OC43 (PCR) Coronavirus HKU1 (PCR) Coronavirus 229E (PCR) SARS-CoV-2 (PCR) Coronavirus NL63 (PCR) Human Metapneumovir PCR Influenza Type A (PCR) Influenza Type B (PCR) M. pneumoniae (PCR) Parainfluenza 1 (PCR) Parainfluenza 2 (PCR) Parainfluenza 3 (PCR) Parainfluenza 4 (PCR) RSV (PCR) Entero/Rhino (PCR) Assessment & Plan Assessment & Plan narrative: NEURO: # Decondition -- Seek PT/OT and OOB as tolerated RESP: # Acute hypoxemia respiratory failure -- Secondary to COVID PNA w/ query component of pulmonary edema -- COVID rx as below -- Start gentle diuresis -- On HFNC 40/50% -- HOB elevation -- Aspiration precaution # Hx of lung cancer w/ mets -- On outpatient keytruda -- Oncology follow up [facility]: -- Goal SBP < 140 ID: # COVID Pneumonia -- On decadron and remdesivir -- On levaquin -- Follow up cx data -- On airborne, contact, and droplet precautions ENDO: -- Goal BS < [address] Waters. Time Spent With Patient Time with patient: 30 to 49 minutes with 50% spent counseling/coordinating care
--- NOTE | 2022-07-03 18:55 | PC.NURSE ---
day shift: patient arrived at 1645 followed by ED RN and RT.
[2022-07-03 20:13] LABS: MRSA (Nasal) PCR Not Detected (Not Detect)
[2022-07-03] MEDS: GABAPENTIN 300 MG CAPSULE PO (20:22)
[2022-07-03] MEDS: ENOXAPARIN 40 MG/0.4 ML SYRINGE SUBCUT (20:22)
[2022-07-03] MEDS: FUROSEMIDE 20 MG/2 ML VIAL IV (20:22)
[2022-07-03] MEDS: BENZONATATE 100 MG CAPSULE PO (21:14)
[2022-07-03] MEDS: OXYCODONE IR 10 MG TABLET PO (21:14)
[2022-07-03] MEDS: DOCUSATE 100 MG CAPSULE 200 MG PO (21:14)
[2022-07-03] MEDS: CODEINE/GUAIFENESIN LIQUID 5ML UDC 10 ML PO (21:14)
[2022-07-03] MEDS: INSULIN LISPRO 100 UNIT/ML 3ML VIAL SUBCUT (21:15)
[2022-07-04] VITALS (55 sets, daily range): BP systolic 91–146; BP diastolic 57–75; PULSE 80–125; RESP 0–41; TEMP 29–37.1; O2SAT 83–98
[2022-07-04] MEDS: OXYCODONE IR 10 MG TABLET PO ×4 (02:06→21:53)
[2022-07-04] MEDS: CODEINE/GUAIFENESIN LIQUID 5ML UDC 10 ML PO ×3 (03:12→20:15)
[2022-07-04 04:47] LABS: INR 1.4 (0.9-1.3); Prothrombin Time 16.5 SECONDS (10.1-12.7)
[2022-07-04 04:51] LABS: Alanine Aminotransferase 36 IU/L (<50); Albumin 3.3 g/dL (3.5-5.0); Alkaline Phosphatase 56 U/L (38-126); Aspartate Aminotransferase 26 IU/L (17-59); Bilirubin Total 0.4 mg/dL (0.2-1.3); Blood Urea Nitrogen 11 mg/dL (9-20); Calcium 8.6 mg/dL (8.4-10.2); Carbon Dioxide 28 mmol/L (22-32); Chloride 97 mmol/L (98-107); Estimated Glomerular Filt Rate > 60 mL/min (>60); Globulin 3.4 g/dL (1.7-4.1); Glucose 224 mg/dL (80-110); HEMOLYSIS < 15 (0-50); Potassium 4.2 mmol/L (3.4-5.1); Sodium 132 mmol/L (137-145); Total Protein 6.7 g/dL (6.3-8.2)
[2022-07-04 04:54] LABS: Add Manual Diff / Slide Review NO; Basophils Absolute Auto 0 /uL (0-100); Basophils Percent Auto 0.1 % (0-2); Eosinophils Absolute Auto 0 /uL (0-450); Hematocrit 33.6 % (41-53); Hemoglobin 11.3 g/dL (13.5-17.5); Lymphocytes Absolute Auto 400 /uL (1100-4500); Lymphocytes Percent Auto 6.8 % (25-40); Mean Corpuscular HGB Conc 33.8 % (30-36); Mean Corpuscular Hemoglobin 29.8 PG (26-34); Mean Corpuscular Volume 88.3 fL (80-100); Monocytes Absolute Auto 300 /uL (0-900); Monocytes Percent Auto 5.4 % (3-14); Neutrophils Absolute Auto 4800 /uL (1500-7000); Neutrophils Percent Auto 87.7 % (50-75); Platelet Count 285 X10^3/uL (150-400); Red Cell Distribution Width 13.5 % (11.6-14.8); White Blood Cell Count 5.5 X10^3/uL (4.5-11.0)
--- NOTE | 2022-07-04 07:13 | PC.NURSE ---
Lard Bleacher Note-Patient was restless and mildly anxious at beginning of shift, having to void frequently, IV Lasix given, set up with condom catheter overnight, 2000ml UOP, patient was then able to sleep. HHF remains 50%/40L, persistent cough treated with Teselon Pearls and guiafenesin/codeine.
--- NOTE | 2022-07-04 07:26 | PM.PN.1 ---
Subjective Subjective Date Patient Seen: 07/04/22 Time Patient Seen: 07:28 Interval history: Patient reviewed briefly with Dr. Miguel. 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 Oncology has been hesitant to treat aggressively with chemotherapeutic agents until tissue diagnosis can be reconfirmed and specific testing/sequencing performed for guidance in therapies. He was recently started on Keytruda with plans for CT based biopsy to be done next week under conscious sedation. He would failed previous attempts given his severe dyspnea when lying flat. 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 Difficult to know what the primary source of his respiratory issues are. I am concerned that most of his pulmonary decompensation/respiratory failure are secondary to his underlying malignancy and for that we have no effective treatment at this time. Patient has been aggressively treated for potential bacterial pneumonias previously without real improvement in symptoms overall. This will be patient's second infection with COVID, he was hospitalized approximately 1 year ago with COVID as well. Patient remains unvaccinated against COVID, despite that previous infection and my strong recommendation that would be in his best interest to receive vaccination despite having had previous COVID infection as noted on my previous discharge summary as well as intermittent discussions as an outpatient. In any event he is admitted on high-flow oxygen receiving appropriate therapies for COVID pneumonia. He is, it would appear, stable at least. Patient also somewhat hyperglycemic not unexpected given his known diabetes in the setting of high-dose parental steroids for COVID pneumonia Patient's vital signs are otherwise stable. Currently patient's respiratory status is fairly tenuous. Any sort of increased physical activity such as merely moving his legs to try and readjust the sheets over his feet has resulted in an oxygen saturation of 60% temporarily. When he returns to rest as well as a brief bolus of his high-flow oxygen to 100% he recovers with an oxygen saturation currently of about 92%. His dyspnea and tachypnea also improved significantly as his oxygen saturation improves. Exam Vital Signs (past 8 hours): - 07/03/22 23:30 07/04/22 00:00 07/04/22 00:00 Temperature 97.3 F L Pulse Rate 87 Respiratory Rate 23 Blood Pressure 91/64 Pulse Oximetry 95 Oxygen Delivery Method 07/04/22 00:00 07/04/22 00:00 07/04/22 00:30 Temperature Pulse Rate 87 86 Respiratory Rate 22 16 Blood Pressure Pulse Oximetry 91 93 Oxygen Delivery Method Heated High Flow 07/04/22 01:00 07/04/22 01:00 07/04/22 01:30 Temperature Pulse Rate 84 81 Respiratory Rate 15 23 Blood Pressure 106/60 Pulse Oximetry 95 94 Oxygen Delivery Method 07/04/22 02:00 07/04/22 02:00 07/04/22 04:15 Temperature Pulse Rate 84 Respiratory Rate 19 Blood Pressure 146/75 H Pulse Oximetry 91 Oxygen Delivery Method Heated High Flow 07/04/22 04:00 07/04/22 02:30 07/04/22 03:00 Temperature 96.4 F L Pulse Rate 83 Respiratory Rate 0 L Blood Pressure 114/68 Pulse Oximetry 89 L Oxygen Delivery Method 07/04/22 03:00 07/04/22 03:30 07/04/22 04:00 Temperature Pulse Rate 86 85 Respiratory Rate 16 13 Blood Pressure 110/64 Pulse Oximetry 94 95 Oxygen Delivery Method 07/04/22 04:00 07/04/22 04:30 07/04/22 05:00 Temperature Pulse Rate 84 86 Respiratory Rate 15 18 Blood Pressure 127/71 Pulse Oximetry 95 91 Oxygen Delivery Method 07/04/22 05:00 07/04/22 00:00 07/04/22 04:00 Temperature Pulse Rate 83 96 H 96 H Respiratory Rate 16 28 H 24 Blood Pressure Pulse Oximetry 95 93 92 Oxygen Delivery Method 07/04/22 05:30 07/04/22 06:00 07/04/22 06:00 Temperature Pulse Rate 82 80 Respiratory Rate 26 H 6 L Blood Pressure 116/67 Pulse Oximetry 92 95 Oxygen Delivery Method Fraction of Inspired Oxygen 50 Oxygen Delivery Method Heated High Flow Oxygen Flow Rate 40 Objective Labs 07/04/22 04:15 07/04/22 04:15 Labs: Laboratory Results - last 24 hr 07/03/22 07/03/22 07/03/22 13:00 13:00 13:00 WBC 9.3 RBC 4.09 L Hgb 12.3 L Hct 36.5 L MCV 89.3 MCH 30.0 MCHC 33.6 RDW 13.3 Plt Count 309 Neut % (Auto) 76.1 H Lymph % (Auto) 11.[address] [place] % (Auto) 10.2 Eos % (Auto) 1.2 L Baso % (Auto) 0.7 Neut # (Auto) 7100 H Lymph # (Auto) 1100 [place] # (Auto) 900 Eos # (Auto) 100 Baso # (Auto) 100 PT 15.9 H INR 1.4 H Sodium 128 L Potassium 4.4 Chloride 93 L Carbon Dioxide 25 BUN 10 Creatinine 0.74 Estimated GFR > 60 BUN/Creatinine Ratio 13.5 Glucose 184 H Lactate Calcium 8.3 L Total Bilirubin 1.1 AST 39 ALT 41 Alkaline Phosphatase 55 Troponin I < 0.012 NT-Pro-B Natriuret Pep 104 Total Protein 7.4 Albumin 3.7 Globulin 3.7 Albumin/Globulin Ratio 1.0 Nasal Screen MRSA (PCR) Chlamy pneumoniae PCR Adenovirus (PCR) B. pertussis DNA (PCR) B.parapertussis DNA PCR Coronavirus OC43 (PCR) Coronavirus HKU1 (PCR) Coronavirus 229E (PCR) SARS-CoV-2 (PCR) Coronavirus NL63 (PCR) Human Metapneumovir PCR Influenza Type A (PCR) Influenza Type B (PCR) M. pneumoniae (PCR) Parainfluenza 1 (PCR) Parainfluenza 2 (PCR) Parainfluenza 3 (PCR) Parainfluenza 4 (PCR) RSV (PCR) Entero/Rhino (PCR) 07/03/22 07/03/22 07/03/22 13:00 13:12 15:30 WBC RBC Hgb Hct MCV MCH MCHC RDW Plt Count Neut % (Auto) Lymph % (Auto) [place] % (Auto) Eos % (Auto) Baso % (Auto) Neut # (Auto) Lymph # (Auto) [place] # (Auto) Eos # (Auto) Baso # (Auto) PT INR Sodium Potassium Chloride Carbon Dioxide BUN Creatinine Estimated GFR BUN/Creatinine Ratio Glucose Lactate 3.2 H 2.3 H Calcium Total Bilirubin AST ALT Alkaline Phosphatase Troponin I NT-Pro-B Natriuret Pep Total Protein Albumin Globulin Albumin/Globulin Ratio Nasal Screen MRSA (PCR) Chlamy pneumoniae PCR Not detected Adenovirus (PCR) Not detected B. pertussis DNA (PCR) Not detected B.parapertussis DNA PCR Not detected Coronavirus OC43 (PCR) Not detected Coronavirus HKU1 (PCR) Not detected Coronavirus 229E (PCR) Not detected SARS-CoV-2 (PCR) Detected H Coronavirus NL63 (PCR) Not detected Human Metapneumovir PCR Not detected Influenza Type A (PCR) Not detected Influenza Type B (PCR) Not detected M. pneumoniae (PCR) Not detected Parainfluenza 1 (PCR) Not detected Parainfluenza 2 (PCR) Not detected Parainfluenza 3 (PCR) Not detected Parainfluenza 4 (PCR) Not detected RSV (PCR) Not detected Entero/Rhino (PCR) Not detected 07/03/22 07/03/22 07/03/22 16:50 16:50 18:15 WBC RBC Hgb Hct 34.7 L MCV MCH MCHC RDW Plt Count 280 Neut % (Auto) Lymph % (Auto) [place] % (Auto) Eos % (Auto) Baso % (Auto) Neut # (Auto) Lymph # (Auto) [place] # (Auto) Eos # (Auto) Baso # (Auto) PT 15.8 H INR 1.4 H Sodium Potassium Chloride Carbon Dioxide BUN Creatinine Estimated GFR BUN/Creatinine Ratio Glucose Lactate Calcium Total Bilirubin AST ALT Alkaline Phosphatase Troponin I NT-Pro-B Natriuret Pep Total Protein Albumin Globulin Albumin/Globulin Ratio Nasal Screen MRSA (PCR) Not detected Chlamy pneumoniae PCR Adenovirus (PCR) B. pertussis DNA (PCR) B.parapertussis DNA PCR Coronavirus OC43 (PCR) Coronavirus HKU1 (PCR) Coronavirus 229E (PCR) SARS-CoV-2 (PCR) Coronavirus NL63 (PCR) Human Metapneumovir PCR Influenza Type A (PCR) Influenza Type B (PCR) M. pneumoniae (PCR) Parainfluenza 1 (PCR) Parainfluenza 2 (PCR) Parainfluenza 3 (PCR) Parainfluenza 4 (PCR) RSV (PCR) Entero/Rhino (PCR) 07/04/22 07/04/22 07/04/22 04:15 04:15 04:15 WBC 5.5 RBC 3.80 L Hgb 11.3 L Hct 33.6 L MCV 88.3 MCH 29.8 MCHC 33.8 RDW 13.5 Plt Count 285 Neut % (Auto) 87.7 H Lymph % (Auto) 6.[address] % (Auto) 5.4 Eos % (Auto) 0.0 L Baso % (Auto) 0.1 Neut # (Auto) 4800 Lymph # (Auto) [address] [place] # (Auto) 300 Eos # (Auto) 0 Baso # (Auto) 0 PT 16.5 H INR 1.4 H Sodium 132 L Potassium 4.2 Chloride 97 L Carbon Dioxide 28 BUN 11 Creatinine 0.58 L Estimated GFR > 60 BUN/Creatinine Ratio 19.0 Glucose 224 H Lactate Calcium 8.6 Total Bilirubin 0.4 AST 26 ALT 36 Alkaline Phosphatase 56 Troponin I NT-Pro-B Natriuret Pep Total Protein 6.7 Albumin 3.3 L Globulin 3.4 Albumin/Globulin Ratio 1.0 Nasal Screen MRSA (PCR) Chlamy pneumoniae PCR Adenovirus (PCR) B. pertussis DNA (PCR) B.parapertussis DNA PCR Coronavirus OC43 (PCR) Coronavirus HKU1 (PCR) Coronavirus 229E (PCR) SARS-CoV-2 (PCR) Coronavirus NL63 (PCR) Human Metapneumovir PCR Influenza Type A (PCR) Influenza Type B (PCR) M. pneumoniae (PCR) Parainfluenza 1 (PCR) Parainfluenza 2 (PCR) Parainfluenza 3 (PCR) Parainfluenza 4 (PCR) RSV (PCR) Entero/Rhino (PCR) PFSH Medical History Adenocarcinoma of right lung, stage 4 Adrenal insufficiency BPH w urinary obs/LUTS Chest wall pain following surgery COVID-19 Diabetes History of colonic polyps Hypertension Shoulder impingement Tobacco consumption Surgical History H/O hand surgery (~2013) H/O shoulder surgery (~1997) History of lung surgery History of vascular access device Family History Father Prostate cancer Social History household members: spouse Smoking Status: Former smoker alcohol intake: current substance use type: does not use Assessment & Plan Assessment & Plan narrative: 1. Respiratory failure-continue current therapies as noted including the IV steroids IV remdesivir and IV antibiotics as well to treat any potential bacterial infection. As previous he is received multiple doses of oral antibiotics for possible pneumonia in effort to improve his respiratory status as an outpatient in the weeks leading up to this hospitalization. I am not convinced that there is a bacterial component his pneumonia. I am also uncertain as to the exact nature of his COVID infection as well. However there does appear to be causing some increased respiratory distress and certainly needs appropriate aggressive therapies for that infection. I am more concerned however that his respiratory failure and current respiratory status is a reflection of his progressive malignancy which we are not aggressively treating at this time. If patient further declined from respiratory standpoint with above therapies I am not sure what options we have to aggressively treat the disease process further. Hopefully the majority of his current respiratory failure is secondary to COVID pneumonia and with appropriate treatment and time he will respond and improve to allow for further evaluation of his lung cancer inappropriate treatment of same. 2. Diabetes-patient's blood sugar somewhat elevated. I will advance his insulin coverage for this morning and if necessary add long-acting insulin. I will give him another 24 hours before adding the long-acting insulin. 3. Hypertension-patient's blood pressure if anything is been on the low side. I am going to discontinue his losartan for the moment anyway. Overall patient remains critically ill with significant issues primarily respiratory based. Hopefully as above with appropriate therapies for COVID pneumonia and hopefully given that that is the etiology for the majority of his respiratory decline in the last several days he will begin to improve over the next several days. However as noted I am quite concerned that his respiratory decline is significantly related to his pulmonary malignancy which also shows advancement on his most recent CT scan of the chest. For this we have very little if any therapeutic option at this point as per Oncology. Had a long discussion with patient regarding his current clinical status, how tenuous he is, and that if he worsens by even several percentage points with his breathing basically he would need to be intubated to keep him alive. Discussed that if that option becomes necessary I think based on statistics his odds of survival to discharge from the hospital are very very low and even if he does survive then of course he has to deal with the lung cancer which is clearly progressive based on most recent imaging. So the question would be: He would potentially survive if he requires intubation and ventilatory support for a period of time, but survive for what end or what purpose. He is not convinced he would want to survive when there is almost no prospect for significant improvement return home etcetera. However he is also not ready to at this point either which is the option if again we think he is sick enough to require intubation any chooses not to do that of course then he would almost certainly . Personally, based on my interactions with patient over the last several months since March when his respiratory status really took a nose dive quality of life at home has been really quite miserable and I am not convinced that he would want to continue to live in an environment where that is his best quality of life and would only potentially go downhill from there. Whether not his lung cancer could effectively be treated in any meaningful way is unclear but it seems unlikely given progression to date. Therefore I would personally recommend he not be intubated or receive that kind of ventilatory support even if required as I do not believe it would meet his goals of quality of life in the long run and that it might be in his best interest to accept the inevitable again assuming he declines from his current status. However he is not ready to make that decision. Will continue this discussion over the next several hours. Appreciate input from the tele gear grinding machine operator service as well. Quality VTE Deep Vein Thrombosis/Pulmonary Embolism Present on Admission: No
[2022-07-04] MEDS: INSULIN LISPRO 100 UNIT/ML 3ML VIAL SUBCUT ×3 (08:55→17:26)
[2022-07-04] MEDS: ENOXAPARIN 40 MG/0.4 ML SYRINGE SUBCUT ×2 (08:57→20:14)
[2022-07-04] MEDS: ASPIRIN EC 81 MG TABLET PO (08:57)
[2022-07-04] MEDS: DEXAMETHASONE 4 MG/ML VIAL IV (08:59)
[2022-07-04] MEDS: TAMSULOSIN 0.4 MG CAPSULE PO (08:59)
[2022-07-04] MEDS: GABAPENTIN 300 MG CAPSULE PO ×3 (08:59→20:14)
[2022-07-04] MEDS: FUROSEMIDE 20 MG/2 ML VIAL IV ×2 (08:59→20:14)
--- NOTE | 2022-07-04 09:55 | P.TELICUPN_ITS ---
Subjective Subjective IF CAMERA ACTIVATED, patient seen via real-time interactive audiovisual communication: Camera activated Consent obtained for tele-tie buyer care: Yes Patient Location: ICU Provider location (State): [place] Other participants/roles: Bedside RN, patient's family, respiratory therapist, hospitalist Interval history: Briefly, this is a 67 years old male with history of stage IV lung cancer, currently on Keytruda, presented with shortness of breath with hypoxia and generalized weakness, CT chest with right pleural thickening and airspace disease, tested positive for COVID-19 (unvaccinated against COVID-19), initially placed on BiPAP but now transitioned to HFNC, admitted to ICU for further management. During telemetry ICU rounds this morning, noted to be awake, oriented x3, in no apparent distress.? Follows simple commands.? Remains on HFNC, 40 L/min, 60% FiO2.? Hemodynamically stable, not requiring any vasopressors.? Started on Decadron, remdesivir and Levaquin overnight. Current Medications Current Medications Medications: Home Medications sildenafil 100 mg tablet 50 - 100 mg PO DAILY PRN sexual activity #10 tabs 09/13/21 [Rx Confirmed 07/03/22] losartan 25 mg tablet 25 mg PO DAILY #90 tabs 10/14/21 [Rx Confirmed 07/03/22] aspirin 81 mg capsule 81 mg PO DAILY 06/17/22 [History Confirmed 07/03/22] tamsulosin 0.4 mg capsule 0.4 mg PO DAILY #90 caps 06/19/22 [Rx Confirmed 07/03/22] gabapentin 300 mg capsule 300 mg PO .COMPLEX #90 caps 06/25/22 [Rx Confirmed 07/03/22] prednisone 10 mg tablet 10 mg PO DAILY 06/25/22 [History Confirmed 07/03/22] dextromethorphan HBr 15 mg capsule 15 mg PO .HS PRN cough #60 caps 06/26/22 [Rx Confirmed 07/03/22] guaifenesin 1,200 mg tablet, extended release 12 hr 1,200 mg PO BID #60 tabs 06/26/22 [Rx Confirmed 07/03/22] hydroxyzine HCl 50 mg tablet 100 mg PO QID PRN itching #180 tabs 06/26/22 [Rx Confirmed 07/03/22] ipratropium 20 mcg-albuterol 100 mcg/actuation mist for inhalation (Combivent Respimat) 1 puff inhalation Q4H PRN cough #4 grams 06/26/22 [Rx Confirmed 07/03/22] ondansetron 4 mg disintegrating tablet 4 mg PO TID #90 tabs 06/26/22 [Rx Confirmed 07/03/22] naloxone 4 mg/actuation nasal spray (Narcan) 4 mg intranasal Q3M PRN opioid overdose #2 ea 07/01/22 [Rx Confirmed 07/03/22] oxycodone 10 mg tablet 10 - 20 mg PO Q4H PRN pain #90 tabs 07/01/22 [Rx Confirmed 07/03/22] gyhmgnwwmivrkhr-xrwchit-DD 30 mg-10 mg-100 mg/5 mL oral syrup 5 ml PO Q4H PRN cough #473 mL 07/01/22 [Rx Confirmed 07/03/22] docusate sodium 100 mg capsule 200 mg PO BID PRN opioids #180 caps 07/02/22 [Rx Confirmed 07/03/22] fentanyl 37.5 mcg/hour transdermal patch 1 patch transdermal Q72H #5 ea 07/02/22 [Rx Confirmed 07/03/22] sennosides 8.6 mg tablet (Natural Senna Laxative) 8.6 mg PO BID PRN constipation #60 tabs 07/02/22 [Rx Confirmed 07/03/22] Visit Medications (administered) Generic Name Dose Route Start Last Admin Trade Name Freq PRN Reason Stop Dose Admin Aspirin 81 mg 07/04/22 09:00 07/04/22 08:57 Aspirin Ec 81 Mg Tablet PO 81 mg DAILY CINDI Administration Benzonatate 100 mg 07/03/22 20:42 07/03/22 21:14 Benzonatate 100 Mg Capsule PO 100 mg TID PRN Administration Cough Dexamethasone 4 mg 07/04/22 09:00 07/04/22 08:59 Dexamethasone 4 Mg/Ml Vial IV 4 mg DAILY CINDI Administration Docusate Sodium 200 mg 07/03/22 16:48 07/03/22 21:14 Docusate 100 Mg Capsule PO 200 mg BID PRN Administration opioids Enoxaparin Sodium 40 mg 07/03/22 21:00 07/04/22 08:57 Enoxaparin 40 Mg/0.4 Ml Syringe SUBCUT 40 mg BID CINDI Administration Fentanyl 25 mcg 07/03/22 17:00 07/03/22 17:04 Fentanyl 25 Mcg/Patch TOP 25 mcg Q72H CINDI Administration Furosemide 20 mg 07/03/22 21:00 07/04/22 08:59 Furosemide 20 Mg/2 Ml Vial IV 20 mg BID CINDI Administration Gabapentin 300 mg 07/03/22 21:00 07/04/22 08:59 Gabapentin 300 Mg Capsule PO 300 mg TID CINDI Administration Guaifenesin/Codeine Phosphate 10 ml 07/03/22 20:42 07/04/22 03:12 Codeine/Guaifenesin Liquid 5ml Udc PO 10 ml Q6H PRN Administration Cough Sodium Chloride 1,000 mls @ 100 mls/hr 07/03/22 16:45 07/03/22 16:56 Normal Saline 0.9% IV 100 mls/hr CONT CNIDI Administration Insulin Human Lispro 0 unit 07/03/22 21:00 07/04/22 08:55 Insulin Lispro 100 Unit/Ml 3ml Vial SUBCUT 4 unit ACHS CINDI Administration Protocol Oxycodone HCl 10 mg 07/03/22 16:35 07/04/22 02:06 Oxycodone Ir 10 Mg Tablet PO 10 mg Q3H PRN Administration Pain, Severe (7-10) Tamsulosin HCl 0.4 mg 07/04/22 09:00 07/04/22 08:59 Tamsulosin 0.4 Mg Capsule PO 0.4 mg DAILY CINDI Administration Objective Labs 07/04/22 04:15 07/04/22 04:15 Labs: Laboratory Results - last 24 hr 07/03/22 07/03/22 07/03/22 13:00 13:00 13:00 WBC 9.3 RBC 4.09 L Hgb 12.3 L Hct 36.5 L MCV 89.3 MCH 30.0 MCHC 33.6 RDW 13.3 Plt Count 309 Neut % (Auto) 76.1 H Lymph % (Auto) 11.8 L [place] % (Auto) 10.2 Eos % (Auto) 1.2 L Baso % (Auto) 0.7 Neut # (Auto) 7100 H Lymph # (Auto) 1100 [place] # (Auto) 900 Eos # (Auto) 100 Baso # (Auto) 100 PT 15.9 H INR 1.4 H Sodium 128 L Potassium 4.4 Chloride 93 L Carbon Dioxide 25 BUN 10 Creatinine 0.74 Estimated GFR > 60 BUN/Creatinine Ratio 13.5 Glucose 184 H Lactate Calcium 8.3 L Total Bilirubin 1.1 AST 39 ALT 41 Alkaline Phosphatase 55 Troponin I < 0.012 NT-Pro-B Natriuret Pep 104 Total Protein 7.4 Albumin 3.7 Globulin 3.7 Albumin/Globulin Ratio 1.0 Nasal Screen MRSA (PCR) Chlamy pneumoniae PCR Adenovirus (PCR) B. pertussis DNA (PCR) B.parapertussis DNA PCR Coronavirus OC43 (PCR) Coronavirus HKU1 (PCR) Coronavirus 229E (PCR) SARS-CoV-2 (PCR) Coronavirus NL63 (PCR) Human Metapneumovir PCR Influenza Type A (PCR) Influenza Type B (PCR) M. pneumoniae (PCR) Parainfluenza 1 (PCR) Parainfluenza 2 (PCR) Parainfluenza 3 (PCR) Parainfluenza 4 (PCR) RSV (PCR) Entero/Rhino (PCR) 07/03/22 07/03/22 07/03/22 13:00 13:12 15:30 WBC RBC Hgb Hct MCV MCH MCHC RDW Plt Count Neut % (Auto) Lymph % (Auto) [place] % (Auto) Eos % (Auto) Baso % (Auto) Neut # (Auto) Lymph # (Auto) [place] # (Auto) Eos # (Auto) Baso # (Auto) PT INR Sodium Potassium Chloride Carbon Dioxide BUN Creatinine Estimated GFR BUN/Creatinine Ratio Glucose Lactate 3.2 H 2.3 H Calcium Total Bilirubin AST ALT Alkaline Phosphatase Troponin I NT-Pro-B Natriuret Pep Total Protein Albumin Globulin Albumin/Globulin Ratio Nasal Screen MRSA (PCR) Chlamy pneumoniae PCR Not detected Adenovirus (PCR) Not detected B. pertussis DNA (PCR) Not detected B.parapertussis DNA PCR Not detected Coronavirus OC43 (PCR) Not detected Coronavirus HKU1 (PCR) Not detected Coronavirus 229E (PCR) Not detected SARS-CoV-2 (PCR) Detected H Coronavirus NL63 (PCR) Not detected Human Metapneumovir PCR Not detected Influenza Type A (PCR) Not detected Influenza Type B (PCR) Not detected M. pneumoniae (PCR) Not detected Parainfluenza 1 (PCR) Not detected Parainfluenza 2 (PCR) Not detected Parainfluenza 3 (PCR) Not detected Parainfluenza 4 (PCR) Not detected RSV (PCR) Not detected Entero/Rhino (PCR) Not detected 07/03/22 07/03/22 07/03/22 16:50 16:50 18:15 WBC RBC Hgb Hct 34.7 L MCV MCH MCHC RDW Plt Count 280 Neut % (Auto) Lymph % (Auto) [place] % (Auto) Eos % (Auto) Baso % (Auto) Neut # (Auto) Lymph # (Auto) [place] # (Auto) Eos # (Auto) Baso # (Auto) PT 15.8 H INR 1.4 H Sodium Potassium Chloride Carbon Dioxide BUN Creatinine Estimated GFR BUN/Creatinine Ratio Glucose Lactate Calcium Total Bilirubin AST ALT Alkaline Phosphatase Troponin I NT-Pro-B Natriuret Pep Total Protein Albumin Globulin Albumin/Globulin Ratio Nasal Screen MRSA (PCR) Not detected Chlamy pneumoniae PCR Adenovirus (PCR) B. pertussis DNA (PCR) B.parapertussis DNA PCR Coronavirus OC43 (PCR) Coronavirus HKU1 (PCR) Coronavirus 229E (PCR) SARS-CoV-2 (PCR) Coronavirus NL63 (PCR) Human Metapneumovir PCR Influenza Type A (PCR) Influenza Type B (PCR) M. pneumoniae (PCR) Parainfluenza 1 (PCR) Parainfluenza 2 (PCR) Parainfluenza 3 (PCR) Parainfluenza 4 (PCR) RSV (PCR) Entero/Rhino (PCR) 07/04/22 07/04/22 07/04/22 04:15 04:15 04:15 WBC 5.5 RBC 3.80 L Hgb 11.3 L Hct 33.6 L MCV 88.3 MCH 29.8 MCHC 33.8 RDW 13.5 Plt Count 285 Neut % (Auto) 87.7 H Lymph % (Auto) 6.8 L [place] % (Auto) 5.4 Eos % (Auto) 0.0 L Baso % (Auto) 0.1 Neut # (Auto) 4800 Lymph # (Auto) 400 L [place] # (Auto) 300 Eos # (Auto) 0 Baso # (Auto) 0 PT 16.5 H INR 1.4 H Sodium 132 L Potassium 4.2 Chloride 97 L Carbon Dioxide 28 BUN 11 Creatinine 0.58 L Estimated GFR > 60 BUN/Creatinine Ratio 19.0 Glucose 224 H Lactate Calcium 8.6 Total Bilirubin 0.4 AST 26 ALT 36 Alkaline Phosphatase 56 Troponin I NT-Pro-B Natriuret Pep Total Protein 6.7 Albumin 3.3 L Globulin 3.4 Albumin/Globulin Ratio 1.0 Nasal Screen MRSA (PCR) Chlamy pneumoniae PCR Adenovirus (PCR) B. pertussis DNA (PCR) B.parapertussis DNA PCR Coronavirus OC43 (PCR) Coronavirus HKU1 (PCR) Coronavirus 229E (PCR) SARS-CoV-2 (PCR) Coronavirus NL63 (PCR) Human Metapneumovir PCR Influenza Type A (PCR) Influenza Type B (PCR) M. pneumoniae (PCR) Parainfluenza 1 (PCR) Parainfluenza 2 (PCR) Parainfluenza 3 (PCR) Parainfluenza 4 (PCR) RSV (PCR) Entero/Rhino (PCR) Exam Vital Signs (past 8 hours): - 07/04/22 02:00 07/04/22 02:00 07/04/22 04:15 Temperature Pulse Rate 84 Respiratory Rate 19 Blood Pressure 146/75 H Pulse Oximetry 91 Oxygen Delivery Method Heated High Flow 07/04/22 04:00 07/04/22 02:30 07/04/22 03:00 Temperature 96.4 F L Pulse Rate 83 Respiratory Rate 0 L Blood Pressure 114/68 Pulse Oximetry 89 L Oxygen Delivery Method 07/04/22 03:00 07/04/22 03:30 07/04/22 04:00 Temperature Pulse Rate 86 85 Respiratory Rate 16 13 Blood Pressure 110/64 Pulse Oximetry 94 95 Oxygen Delivery Method 07/04/22 04:00 07/04/22 04:30 07/04/22 05:00 Temperature Pulse Rate 84 86 Respiratory Rate 15 18 Blood Pressure 127/71 Pulse Oximetry 95 91 Oxygen Delivery Method 07/04/22 05:00 07/04/22 04:00 07/04/22 05:30 Temperature Pulse Rate 83 96 H 82 Respiratory Rate 16 24 26 H Blood Pressure Pulse Oximetry 95 92 92 Oxygen Delivery Method 07/04/22 06:00 07/04/22 06:00 07/04/22 06:30 Temperature Pulse Rate 80 81 Respiratory Rate 6 L 15 Blood Pressure 116/67 Pulse Oximetry 95 94 Oxygen Delivery Method 07/04/22 07:00 07/04/22 07:00 07/04/22 07:30 Temperature Pulse Rate 81 81 Respiratory Rate 12 9 L Blood Pressure 118/67 Pulse Oximetry 94 94 Oxygen Delivery Method 07/04/22 08:00 07/04/22 08:43 Temperature Pulse Rate 96 H 104 H Respiratory Rate 38 H 30 H Blood Pressure Pulse Oximetry 83 L 90 L Oxygen Delivery Method Fraction of Inspired Oxygen 50 Oxygen Delivery Method Heated High Flow Oxygen Flow Rate 40 Narrative Exam Narrative: Awkake, alert, oriented x 3, in no apparent distress. No use of accessory muscles. NSR on the monitor. Moving all 4 extremities, follows simple commands. Quality TeleICU VTE Deep Vein Thrombosis/Pulmonary Embolism Present on Admission: No Stress Ulcer Stress ulcer prophylaxis: yes and on full treatment dose Assessment & Plan Assessment & Plan narrative: Briefly, this is a 67 years old male with history of stage IV lung cancer, currently on Keytruda, presented with shortness of breath with hypoxia and generalized weakness, CT chest with right pleural thickening and airspace disease, tested positive for COVID-19 (unvaccinated against COVID-19), initially placed on BiPAP but now transitioned to HFNC, admitted to ICU for further management. IMPRESSIONS: # Confirmed COVID-19 pneumonia # Acute hypoxic respiratory failure secondary to above # Stage IV lung cancer, on Keytruda PLAN: - Admitted to ICU overnight given high risk for further respiratory deterioration. Relatively stable on HFNC (OptiFlow at 60% FiO2, 40 L/min). - Titrate supplemental O2 to maintain SPO2 >88%. - Discussed possibility of endotracheal intubation with the patient who is in agreement to be intubated if necessary. - Start dexamethasone 6 mg daily for at least 10 days. C/w Remdesivir per pharmacy protocol. - Monitor inflammatory markers including CRP, LDH, ferritin, procalcitonin. Check d-dimers. - May consider therapeutic anticoagulation if D-dimers are significantly elevated (>1000) with no improvement in oxygenation. - On empiric antibiotics (Levaquin) for possible superimposed bacterial PNA. If procal normal with no growth in cultures, would d/c antibiotics. - Minimize IVF to avoid fluid overload.? C/w diuresis to seek net negative daily fluid balance. - Continue with Duoneb Q2 hours PRN per RT protocol - Encourage to self-prone to improve oxygenation. Lorazepam PRN anxiety. - C/w airborne/droplet/contact isolation in negative pressure room. - Monitor closely in ICU for next 24 hours for potential need for intubation # FEN: Regular diet, no maintenance IVF # Glucose: fairly controlled. C/w ACHS, Accu-Cheks and SSI. BG goal 140-180 # Prophylaxis: Lovenox 40 mg subcu BID for DVT prophylaxis, PPI for stress ulcer prophylaxis # Lines/tubes: PIV, [place] # CODE STATUS: Full code # Disposition: Remains in ICU Above plan was discussed with rounding team including hospitalist, bedside RN, respiratory therapist, and pharmacist during tele-ICU multidisciplinary rounds this morning.? We will continue to follow.? Please call us if any additional questions.
[2022-07-04] MEDS: SODIUM CHLORIDE 0.9% FLUSH 10 ML IV ×2 (10:03→20:15)
--- NOTE | 2022-07-04 10:07 | CM.DANOTE ---
Initial DCP Assessment Note Patient is a 67 yo male, resident of [place]; unvaccinated against COVID presents with worsening dyspnea testing positive for COVID. Patient with progressive lung cancer that has been causing increasing shortness of breath, increasing pulmonary symptoms. Patient currently full code. PCP Dr Reynold NICHOLAS/Abdiaziz Met patient's spouse briefly outside of patient's room Reviewed Dr Flaherty's prog note 07.04.22 which thoroughly outlines patient's current and fragile medical status and the difficulty in navigating this medical plan of care. He concludes by saying patient not ready to make decision about code status and thus remains full code w/ full and aggressive treatment -intubate if needed Patient presents as quite ill, prognosis is guarded and patient/spouse faced with difficult decisions re treatment course and medical plan of care. CM team will plan to follow closely as this medical plan of care unfolds. It will be important for CM team to collaborate with patient, spouse and medical team for continued assessment of need and discussion re dispo options when appropriate JEFERSON Shea Discharge Planning/Care Management CM Discharge Assessment Start: 07/04/22 10:01 Freq: Status: Active Protocol: Document 07/04/22 10:01 MIGUEL (Rec: 07/04/22 10:07 MIGUEL [id number]) Discharge Planning Assessment Assigned Seat Cover Installer JEFERSON Contreras DPOA/Assigned Designee Name Tahira Hinojosa, spouse Contact Information [phone] Advance Directives? Yes Advance Directives on File Yes History Provided By Significant Other,Medical Record Prior Living Arrangements House Household Members spouse Type of transporation used prior to Relies on Others admit Independent with ADL's Yes: Fatigues easily Is patient alert and oriented? Yes Needs Assistance With Bathing,Meal Prep,Managing Medications,Home Chores / Shopping Comment TBD Barriers to Discharge Yes Comment Patient presents as quite ill, prognosis is guarded and patient/spouse faced with difficult decisions re treatment course and medical plan of care. CM team will plan to follow closely as this medical plan of care unfolds. It will be important for CM team to collaborate with patient, spouse and medical team for assessment of need and discussion re dispo options Transportation Arrangement TBD Additional Comment TBD
[2022-07-04] MEDS: BENZONATATE 100 MG CAPSULE PO ×2 (10:27→20:15)
--- NOTE | 2022-07-04 13:26 | PC.NURSE ---
Addendum entered by Deborah Escobar R.N. 07/04/22 18:46: 1840 pt reporting increased work of breathing. RR 20-25, O2 88%-91%, use of abdominal muscles to breathe. Pt requesting to try BiPAP, RT notified and bringing equipment at this time. Care ongoing. Original Note: Day shift: Pt experienced coughing episodes throughout shift with slow O2 saturation recovery. Around breakfast, pt experienced an episode requiring additional oxygenation support; RT increased pt's FiO2 from 50% to 62% FiO2. Provider Dr. Flaherty aware of dyspnea, was at bedside during pt's recovery from this coughing episode. Cough treated with ordered medications, see MAR. Pt experienced another desaturation during a coughing episode approximately at 1245 with a quicker recovery with additional O2 provided. Pt on 62% FiO2 saturations 88%-91% currently. Care ongoing.
[2022-07-04] MEDS: levoFLOXacin 750 MG/150 ML PIGGYBACK 100 MG IV (15:40)
--- NOTE | 2022-07-04 16:45 | P.PN_ITS ---
Subjective Subjective Date Patient Seen: 07/04/22 Time Patient Seen: 16:45 Interval history: Patient basically unchanged since this morning. Still desaturates with any activity. However has not had an increase in oxygen requirements Blood sugar remains quite elevated in the 250+ range by enlarged Exam Vital Signs (past 8 hours): - 07/04/22 10:03 07/04/22 09:00 07/04/22 09:30 Temperature Pulse Rate 110 H 103 H 115 H Respiratory Rate 24 12 14 Blood Pressure Pulse Oximetry 92 96 95 Oxygen Delivery Method 07/04/22 10:00 07/04/22 10:30 07/04/22 10:46 Temperature Pulse Rate 112 H 123 H 121 H Respiratory Rate 24 23 24 Blood Pressure Pulse Oximetry 90 L 89 L 91 Oxygen Delivery Method 07/04/22 10:46 07/04/22 11:00 07/04/22 11:00 Temperature Pulse Rate 118 H Respiratory Rate 22 Blood Pressure 114/67 111/57 L Pulse Oximetry 88 L Oxygen Delivery Method 07/04/22 11:40 07/04/22 11:59 07/04/22 11:47 Temperature 97.9 F Pulse Rate 109 H Respiratory Rate 30 H Blood Pressure Pulse Oximetry 91 Oxygen Delivery Method Heated High Flow 07/04/22 11:30 07/04/22 12:00 07/04/22 12:00 Temperature Pulse Rate 113 H 107 H Respiratory Rate 27 H 21 Blood Pressure 114/72 Pulse Oximetry 91 91 Oxygen Delivery Method 07/04/22 13:00 07/04/22 12:30 07/04/22 13:00 Temperature 97.9 F Pulse Rate 112 H 125 H Respiratory Rate 13 34 H Blood Pressure Pulse Oximetry 93 84 L Oxygen Delivery Method 07/04/22 13:08 07/04/22 13:08 07/04/22 13:30 Temperature Pulse Rate 125 H 117 H Respiratory Rate 35 H 26 H Blood Pressure 136/65 Pulse Oximetry 90 L 93 Oxygen Delivery Method 07/04/22 14:00 07/04/22 14:00 07/04/22 14:30 Temperature Pulse Rate 117 H 112 H Respiratory Rate 26 H 22 Blood Pressure 136/64 Pulse Oximetry 90 L 92 Oxygen Delivery Method 07/04/22 15:00 07/04/22 15:00 07/04/22 16:00 Temperature Pulse Rate 113 H Respiratory Rate 17 Blood Pressure 119/61 Pulse Oximetry 91 Oxygen Delivery Method Heated High Flow 07/04/22 15:30 07/04/22 16:00 Temperature Pulse Rate 111 H 121 H Respiratory Rate 12 41 H Blood Pressure Pulse Oximetry 89 L 91 Oxygen Delivery Method Fraction of Inspired Oxygen 50 Oxygen Delivery Method Heated High Flow Oxygen Flow Rate 40 Objective Labs 07/04/22 04:15 07/04/22 04:15 Labs: Laboratory Results - last 24 hr 07/03/22 07/03/22 07/03/22 16:50 16:50 18:15 WBC RBC Hgb Hct 34.7 L MCV MCH MCHC RDW Plt Count 280 Neut % (Auto) Lymph % (Auto) [place] % (Auto) Eos % (Auto) Baso % (Auto) Neut # (Auto) Lymph # (Auto) [place] # (Auto) Eos # (Auto) Baso # (Auto) PT 15.8 H INR 1.4 H Sodium Potassium Chloride Carbon Dioxide BUN Creatinine Estimated GFR BUN/Creatinine Ratio Glucose Calcium Total Bilirubin AST ALT Alkaline Phosphatase Total Protein Albumin Globulin Albumin/Globulin Ratio Nasal Screen MRSA (PCR) Not detected 07/04/22 07/04/22 07/04/22 04:15 04:15 04:15 WBC 5.5 RBC 3.80 L Hgb 11.3 L Hct 33.6 L MCV 88.3 MCH 29.8 MCHC 33.8 RDW 13.5 Plt Count 285 Neut % (Auto) 87.7 H Lymph % (Auto) 6.8 L [place] % (Auto) 5.4 Eos % (Auto) 0.0 L Baso % (Auto) 0.1 Neut # (Auto) 4800 Lymph # (Auto) 400 L [place] # (Auto) 300 Eos # (Auto) 0 Baso # (Auto) 0 PT 16.5 H INR 1.4 H Sodium 132 L Potassium 4.2 Chloride 97 L Carbon Dioxide 28 BUN 11 Creatinine 0.58 L Estimated GFR > 60 BUN/Creatinine Ratio 19.0 Glucose 224 H Calcium 8.6 Total Bilirubin 0.4 AST 26 ALT 36 Alkaline Phosphatase 56 Total Protein 6.7 Albumin 3.3 L Globulin 3.4 Albumin/Globulin Ratio 1.0 Nasal Screen MRSA (PCR) PFSH Medical History Adenocarcinoma of right lung, stage 4 Adrenal insufficiency BPH w urinary obs/LUTS Chest wall pain following surgery COVID-19 Diabetes History of colonic polyps Hypertension Shoulder impingement Tobacco consumption Surgical History H/O hand surgery (~2013) H/O shoulder surgery (~1997) History of lung surgery History of vascular access device Family History Father Prostate cancer Social History household members: spouse Smoking Status: Former smoker alcohol intake: current substance use type: does not use Assessment & Plan Assessment & Plan narrative: Continue therapies for his pneumonia/acute respiratory failure. Per notes from tele candle extrusion machine operator repeat discussion regarding intubation and patient seems more clear that that is something he would want to have done if necessary to preserve his life. Increase sliding scale/coverage insulin to cover higher blood sugars. Continue with current dexamethasone for COVID which is causing his hyperglycemia Quality VTE Deep Vein Thrombosis/Pulmonary Embolism Present on Admission: No
[2022-07-04] MEDS: REMDESIVIR 100 MG in SODIUM CHLORIDE 0.9% 230 ML 250 MG IV (17:07)
[2022-07-04] MEDS: DOCUSATE 100 MG CAPSULE 200 MG PO (20:15)
--- NOTE | 2022-07-04 20:23 | PM.ICURNDS ---
- Date Patient Seen: 07/04/22 Time Patient Seen: 20:23 :: This patient was seen via real time interactive two-way audiovisual telecommunication. Note: Patient is on BiPAP 10/5 FiO21 60%. Diuresed and net negative 1.6 liters. Cont decadron, remdesivir, and levaquin. Monitor closely for need for intubation. D/w RN at bedside.
[2022-07-04] MEDS: dexmedeTOMIDine in 0.9 % NaCL 400 MCG/100 ML PLAST..BAG IV (21:53)
[2022-07-05] VITALS (67 sets, daily range): BP systolic 77–128; BP diastolic 48–86; PULSE 79–128; RESP 11–49; TEMP 29–36.7; O2SAT 84–98
[2022-07-05] MEDS: CODEINE/GUAIFENESIN LIQUID 5ML UDC 10 ML PO (02:03)
--- NOTE | 2022-07-05 06:36 | PC.NURSE ---
[place] Machine Tender Note-Patient used Bi-pap for approximately 8 hrs, FIO2 60%, /, keeps SpO2 >90%, otherwise was on HHF for few hrs, 60%/40L. LS diminished on right with underlying coarseness, very coarse on left, still has intermittent hacking/wheezing cough. Continues to have panic attacks with RR 40s, desats to 70s, recovers slowly with guidance. Precedex started, currently at 0.3mcg/kg/hr. UOP 1625ml.
[2022-07-05] MEDS: PANTOPRAZOLE DR 40 MG TABLET PO (06:51)
[2022-07-05] MEDS: BENZONATATE 100 MG CAPSULE PO ×2 (07:23→20:39)
[2022-07-05] MEDS: OXYCODONE IR 10 MG TABLET PO ×2 (07:23→16:51)
[2022-07-05] MEDS: ASPIRIN EC 81 MG TABLET PO (08:01)
[2022-07-05] MEDS: ENOXAPARIN 40 MG/0.4 ML SYRINGE SUBCUT ×2 (08:01→20:38)
[2022-07-05] MEDS: FUROSEMIDE 20 MG/2 ML VIAL IV ×2 (08:01→20:39)
[2022-07-05] MEDS: dexmedeTOMIDine in 0.9 % NaCL 400 MCG/100 ML PLAST..BAG 7.313 MCG IV ×2 (08:01→21:29)
[2022-07-05] MEDS: GABAPENTIN 300 MG CAPSULE PO ×2 (08:01→20:39)
[2022-07-05] MEDS: TAMSULOSIN 0.4 MG CAPSULE PO (08:01)
[2022-07-05] MEDS: DEXAMETHASONE 4 MG/ML VIAL 6 MG IV (08:02)
[2022-07-05] MEDS: SODIUM CHLORIDE 0.9% FLUSH 10 ML IV ×3 (08:02→20:40)
[2022-07-05] MEDS: INSULIN LISPRO 100 UNIT/ML 3ML VIAL SUBCUT ×4 (08:13→20:44)
--- NOTE | 2022-07-05 11:23 | PM.PN.EICU ---
Subjective Subjective IF CAMERA ACTIVATED, patient seen via real-time interactive audiovisual communication: Camera activated Consent obtained for tele-roller care: Yes Patient Location: ICU Provider location (State): [place] Other participants/roles: RN Interval history: Patient Summary: 67 yo man with PMH Of stage IV lung CA (currently on Keytruda) admitted 07/03 with acute hypoxic respiratory failure and Covid Positive (unvaccinated again Covid 19). ABG showed no CO2 retention. Chest CTA showed : 1. Suboptimal opacification of central pulmonary arteries.? No definitive pulmonary embolism.? 2. Increased pleural thickening in right hemithorax consistent with worsening of pleural metastasis. 3. Increased bilateral interstitial and airspace opacities are likely a combination of pneumonia and lymphangitic carcinomatosis.? 4. Mediastinal and hilar lymphadenopathy, compatible with trinh metastases.? Pt. started on Decardron, Remdesivir, and Levaquin. Pt. is requiring intermittently BIPAP 12/5 60% and HFNC 40L 60%. Recent Events: Pt. was on BIPAP 12/5 60% last night but this morning has been on HFNC 40L 60% Current Medications Current Medications Medications: Home Medications sildenafil 100 mg tablet 50 - 100 mg PO DAILY PRN sexual activity #10 tabs 09/13/21 [Rx Confirmed 07/03/22] losartan 25 mg tablet 25 mg PO DAILY #90 tabs 10/14/21 [Rx Confirmed 07/03/22] aspirin 81 mg capsule 81 mg PO DAILY 06/17/22 [History Confirmed 07/03/22] tamsulosin 0.4 mg capsule 0.4 mg PO DAILY #90 caps 06/19/22 [Rx Confirmed 07/03/22] gabapentin 300 mg capsule 300 mg PO .COMPLEX #90 caps 06/25/22 [Rx Confirmed 07/03/22] prednisone 10 mg tablet 10 mg PO DAILY 06/25/22 [History Confirmed 07/03/22] dextromethorphan HBr 15 mg capsule 15 mg PO .HS PRN cough #60 caps 06/26/22 [Rx Confirmed 07/03/22] guaifenesin 1,200 mg tablet, extended release 12 hr 1,200 mg PO BID #60 tabs 06/26/22 [Rx Confirmed 07/03/22] hydroxyzine HCl 50 mg tablet 100 mg PO QID PRN itching #180 tabs 06/26/22 [Rx Confirmed 07/03/22] ipratropium 20 mcg-albuterol 100 mcg/actuation mist for inhalation (Combivent Respimat) 1 puff inhalation Q4H PRN cough #4 grams 06/26/22 [Rx Confirmed 07/03/22] ondansetron 4 mg disintegrating tablet 4 mg PO TID #90 tabs 06/26/22 [Rx Confirmed 07/03/22] naloxone 4 mg/actuation nasal spray (Narcan) 4 mg intranasal Q3M PRN opioid overdose #2 ea 07/01/22 [Rx Confirmed 07/03/22] oxycodone 10 mg tablet 10 - 20 mg PO Q4H PRN pain #90 tabs 07/01/22 [Rx Confirmed 07/03/22] gsedindqcbdntni-fmkraxh-MN 30 mg-10 mg-100 mg/5 mL oral syrup 5 ml PO Q4H PRN cough #473 mL 07/01/22 [Rx Confirmed 07/03/22] docusate sodium 100 mg capsule 200 mg PO BID PRN opioids #180 caps 07/02/22 [Rx Confirmed 07/03/22] fentanyl 37.5 mcg/hour transdermal patch 1 patch transdermal Q72H #5 ea 07/02/22 [Rx Confirmed 07/03/22] sennosides 8.6 mg tablet (Natural Senna Laxative) 8.6 mg PO BID PRN constipation #60 tabs 07/02/22 [Rx Confirmed 07/03/22] Visit Medications (administered) Generic Name Dose Route Start Last Admin Trade Name Freq PRN Reason Stop Dose Admin Aspirin 81 mg 07/04/22 09:00 07/05/22 08:01 Aspirin Ec 81 Mg Tablet PO 81 mg DAILY CINDI Administration Benzonatate 100 mg 07/03/22 20:42 07/05/22 07:23 Benzonatate 100 Mg Capsule PO 100 mg TID PRN Administration Cough Dexamethasone 6 mg 07/05/22 09:00 07/05/22 08:02 Dexamethasone 4 Mg/Ml Vial IV 6 mg DAILY CINDI Administration Docusate Sodium 200 mg 07/03/22 16:48 07/04/22 20:15 Docusate 100 Mg Capsule PO 200 mg BID PRN Administration opioids Enoxaparin Sodium 40 mg 07/03/22 21:00 07/05/22 08:01 Enoxaparin 40 Mg/0.4 Ml Syringe SUBCUT 40 mg BID CINDI Administration Fentanyl 25 mcg 07/03/22 17:00 07/03/22 17:04 Fentanyl 25 Mcg/Patch TOP 25 mcg Q72H CINDI Administration Furosemide 20 mg 07/03/22 21:00 07/05/22 08:01 Furosemide 20 Mg/2 Ml Vial IV 20 mg BID CINDI Administration Gabapentin 300 mg 07/03/22 21:00 07/05/22 08:01 Gabapentin 300 Mg Capsule PO 300 mg TID CINDI Administration Guaifenesin/Codeine Phosphate 10 ml 07/03/22 20:42 07/05/22 02:03 Codeine/Guaifenesin Liquid 5ml Udc PO 10 ml Q6H PRN Administration Cough Sodium Chloride 1,000 mls @ 100 mls/hr 07/03/22 16:45 07/03/22 16:56 Normal Saline 0.9% IV 100 mls/hr CONT CINDI Administration Remdesivir 100 mg/ Sodium 250 mls @ 250 mls/hr 07/04/22 17:00 07/04/22 18:45 Chloride IV 07/07/22 17:59 Infused DAILY@1700 CINDI Infusion Levofloxacin 750 mg in 150 mls @ 100 mls/hr 07/04/22 16:00 07/04/22 17:25 Levaquin IV Infused Q24H CINDI Infusion dexmedeTOMIDine in 0.9 % NaCL 400 mcg in 100 mls @ 4.875 mls/hr 07/04/22 21:15 07/05/22 08:01 Precedex IV 0.3 mcg/kg/hr TITRATE CINDI 7.313 mls/hr Administration Protocol 0.2 MCG/KG/HR Insulin Human Lispro 0 unit 07/03/22 21:00 07/05/22 08:13 Insulin Lispro 100 Unit/Ml 3ml Vial SUBCUT 4 unit ACHS CINDI Administration Protocol Oxycodone HCl 10 mg 07/03/22 16:35 07/05/22 07:23 Oxycodone Ir 10 Mg Tablet PO 10 mg Q3H PRN Administration Pain, Severe (7-10) Pantoprazole Sodium 40 mg 07/05/22 07:00 07/05/22 06:[address] 40 Mg Tablet PO 40 mg 0700 CINDI Administration Sodium Chloride 10 ml 07/04/22 09:00 07/05/22 08:02 Sodium Chloride 0.9% Flush IV 10 ml BID CINDI Administration Tamsulosin HCl 0.4 mg 07/04/22 09:00 07/05/22 08:01 Tamsulosin 0.4 Mg Capsule PO 0.4 mg DAILY CINDI Administration Objective Ventilator Parameters: Ventilator Settings FiO2 0.60 Labs 07/04/22 04:15 07/04/22 04:15 Exam Vital Signs (past 8 hours): - 07/05/22 04:00 07/05/22 04:03 07/05/22 04:03 Temperature 97.5 F L Pulse Rate 101 H Respiratory Rate 35 H Blood Pressure 118/56 L Pulse Oximetry 95 Oxygen Delivery Method Heated High Flow BiPAP Fraction of Inspired Oxygen 07/05/22 04:40 07/05/22 04:59 07/05/22 05:00 Temperature Pulse Rate 89 91 H 91 H Respiratory Rate 26 H 27 H 29 H Blood Pressure Pulse Oximetry 91 91 91 Oxygen Delivery Method Fraction of Inspired Oxygen 07/05/22 05:01 07/05/22 05:01 07/05/22 05:02 Temperature Pulse Rate 92 H 92 H Respiratory Rate 30 H 28 H Blood Pressure 83/48 L Pulse Oximetry 91 91 Oxygen Delivery Method Fraction of Inspired Oxygen 07/05/22 05:39 07/05/22 06:00 07/05/22 06:00 Temperature Pulse Rate 97 H Respiratory Rate 33 H Blood Pressure 92/50 L Pulse Oximetry 92 Oxygen Delivery Method Fraction of Inspired Oxygen 60 07/05/22 06:18 07/05/22 06:30 07/05/22 07:00 Temperature Pulse Rate 97 H 94 H Respiratory Rate 34 H 31 H Blood Pressure 103/58 L Pulse Oximetry 91 90 L Oxygen Delivery Method Fraction of Inspired Oxygen 07/05/22 07:00 07/05/22 07:37 07/05/22 07:30 Temperature Pulse Rate 104 H 109 H 113 H Respiratory Rate 36 H 30 H 25 H Blood Pressure Pulse Oximetry 91 91 89 L Oxygen Delivery Method Fraction of Inspired Oxygen 07/05/22 08:00 07/05/22 08:00 07/05/22 08:00 Temperature Pulse Rate 105 H Respiratory Rate 33 H Blood Pressure 102/57 L Pulse Oximetry 88 L Oxygen Delivery Method Heated High Flow BiPAP Fraction of Inspired Oxygen 07/05/22 08:36 07/05/22 08:30 07/05/22 09:00 Temperature 97.7 F Pulse Rate 107 H Respiratory Rate 35 H Blood Pressure 99/71 Pulse Oximetry 89 L Oxygen Delivery Method Fraction of Inspired Oxygen 07/05/22 09:00 07/05/22 09:30 07/05/22 10:00 Temperature Pulse Rate 114 H 125 H Respiratory Rate 34 H 36 H Blood Pressure 91/53 L Pulse Oximetry 87 L 88 L Oxygen Delivery Method Fraction of Inspired Oxygen 07/05/22 10:00 07/05/22 10:30 07/05/22 11:00 Temperature Pulse Rate 115 H 110 H 105 H Respiratory Rate 36 H 20 49 H Blood Pressure Pulse Oximetry 90 L 95 87 L Oxygen Delivery Method Fraction of Inspired Oxygen Fraction of Inspired Oxygen 60 Oxygen Delivery Method Heated High Flow,BiPAP Oxygen Flow Rate 40 Narrative Exam Narrative: Patient seen over two way audio visusal system. 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 CV: HR 90-100s, hemodynamically stable Pulm: HFNC as tolerated, BIPAP when patient more SOB -titrate FIO2 as needed to keep Pox 88-98% -continue decadron -encourage awake self proning ID: blood and sputum culture so far are negative -continue Remesivir for COVID PNA -continue LEvaquin for now for possible superimposed bacterial PNA -will check procal, if neg and cultures are negative then will d/c Levaquin CV: hemodynamically stable Heme: -daily CBC GI: currently on general diet but if patient's respiratory status worsens (BIPAP requirements increased), then will consider switching to liquid diet or NPO if it seems more likely that patient would need intubation FEN/Renal: -continue Lasix 20 mg BID to maintain euvolemia -monitor BMP and replace electrolyte as needed -free water restriction for mild hyponatremia ENdo: BG elevated probably secondary to steroids -control high BG with SSI PPx: protonix and lovenox Code Status: Currently patient wishes to be FULL CODE -if patient's respiratory status worsens, would readdress goals of care with patient CCT spent 55 min
[2022-07-05 11:42] LABS: BUN Creatinine Ratio 26.7 (6-22); Blood Urea Nitrogen 20 mg/dL (9-20); Calcium 8.3 mg/dL (8.4-10.2); Carbon Dioxide 31 mmol/L (22-32); Chloride 93 mmol/L (98-107); Estimated Glomerular Filt Rate > 60 mL/min (>60); Glucose 272 mg/dL (80-110); HEMOLYSIS < 15 (0-50); Sodium 129 mmol/L (137-145)
--- NOTE | 2022-07-05 11:46 | PM.PN.1 ---
Subjective Subjective Date Patient Seen: 07/05/22 Time Patient Seen: 11:46 Interval history: Patient says he feels just perhaps a tiny bit better. Still struggling with intermittent episodes of severe dyspnea/breathlessness generally associated with coughing spells that make him super anxious which ramps up the dyspnea breathlessness sensation and he is fairly miserable. Precedex was initiated by the tele card table attendant last evening which maybe had some minor benefit. Still receiving this though at low-dose. Overall patient seems to be recovering from his hypoxia associated with activity etcetera perhaps just a bit quicker than he was previously Did okay with BiPAP as well which was helpful in least resting him Blood sugars have remained elevated although somewhat better after increasing his insulin coverage it seems Patient and his spouse is with him in the room here today continued have discussions about whether not he would want to be intubated if that became necessary. Spouse has a few questions Exam Vital Signs (past 8 hours): - 07/05/22 04:00 07/05/22 04:03 07/05/22 04:03 Temperature 97.5 F L Pulse Rate 101 H Respiratory Rate 35 H Blood Pressure 118/56 L Pulse Oximetry 95 Oxygen Delivery Method Heated High Flow BiPAP Fraction of Inspired Oxygen 07/05/22 04:40 07/05/22 04:59 07/05/22 05:00 Temperature Pulse Rate 89 91 H 91 H Respiratory Rate 26 H 27 H 29 H Blood Pressure Pulse Oximetry 91 91 91 Oxygen Delivery Method Fraction of Inspired Oxygen 07/05/22 05:01 07/05/22 05:01 07/05/22 05:02 Temperature Pulse Rate 92 H 92 H Respiratory Rate 30 H 28 H Blood Pressure 83/48 L Pulse Oximetry 91 91 Oxygen Delivery Method Fraction of Inspired Oxygen 07/05/22 05:39 07/05/22 06:00 07/05/22 06:00 Temperature Pulse Rate 97 H Respiratory Rate 33 H Blood Pressure 92/50 L Pulse Oximetry 92 Oxygen Delivery Method Fraction of Inspired Oxygen 60 07/05/22 06:18 07/05/22 06:30 07/05/22 07:00 Temperature Pulse Rate 97 H 94 H Respiratory Rate 34 H 31 H Blood Pressure 103/58 L Pulse Oximetry 91 90 L Oxygen Delivery Method Fraction of Inspired Oxygen 07/05/22 07:00 07/05/22 07:37 07/05/22 07:30 Temperature Pulse Rate 104 H 109 H 113 H Respiratory Rate 36 H 30 H 25 H Blood Pressure Pulse Oximetry 91 91 89 L Oxygen Delivery Method Fraction of Inspired Oxygen 07/05/22 08:00 07/05/22 08:00 07/05/22 08:00 Temperature Pulse Rate 105 H Respiratory Rate 33 H Blood Pressure 102/57 L Pulse Oximetry 88 L Oxygen Delivery Method Heated High Flow BiPAP Fraction of Inspired Oxygen 07/05/22 08:36 07/05/22 08:30 07/05/22 09:00 Temperature 97.7 F Pulse Rate 107 H Respiratory Rate 35 H Blood Pressure 99/71 Pulse Oximetry 89 L Oxygen Delivery Method Fraction of Inspired Oxygen 07/05/22 09:00 07/05/22 09:30 07/05/22 10:00 Temperature Pulse Rate 114 H 125 H Respiratory Rate 34 H 36 H Blood Pressure 91/53 L Pulse Oximetry 87 L 88 L Oxygen Delivery Method Fraction of Inspired Oxygen 07/05/22 10:00 07/05/22 10:30 07/05/22 11:00 Temperature Pulse Rate 115 H 110 H 105 H Respiratory Rate 36 H 20 49 H Blood Pressure Pulse Oximetry 90 L 95 87 L Oxygen Delivery Method Fraction of Inspired Oxygen Fraction of Inspired Oxygen 60 Oxygen Delivery Method Heated High Flow,BiPAP Oxygen Flow Rate 40 Objective Labs 07/04/22 04:15 07/05/22 10:55 Labs: Laboratory Results - last 24 hr 07/05/22 10:55 Sodium 129 L Potassium 4.0 Chloride 93 L Carbon Dioxide 31 BUN 20 Creatinine 0.75 Estimated GFR > 60 BUN/Creatinine Ratio 26.7 H Glucose 272 H Calcium 8.3 L PFSH Medical History Adenocarcinoma of right lung, stage 4 Adrenal insufficiency BPH w urinary obs/LUTS Chest wall pain following surgery COVID-19 Diabetes History of colonic polyps Hypertension Shoulder impingement Tobacco consumption Surgical History H/O hand surgery (~2013) H/O shoulder surgery (~1997) History of lung surgery History of vascular access device Family History Father Prostate cancer Social History household members: spouse Smoking Status: Former smoker alcohol intake: current substance use type: does not use Assessment & Plan Assessment & Plan narrative: 1. Respiratory failure-probably a combination of his underlying lung cancer and COVID as previously noted. Does seem to be perhaps just a tiny bit better. Certainly not dramatically better or dramatically worse. Continue with current therapies including the Precedex which makes sense in effort to reduce his anxiety without causing respiratory depression etcetera Continue with IV antibiotics as patient does continue to produce modest amounts of sputum which is probably more indicative of either bacterial infection or related to his underlying malignancy than the COVID itself, in my opinion 2. Diabetes-patient's numbers some better. Continue to monitor. Consider long-acting insulin if not improving 3. Fluids/electrolytes/renal-patient is still producing modest amounts of urine with the furosemide. Creatinine has remained stable although just a bit hyponatremic again today. Electrolytes otherwise okay. Continue as per tele intensivists with diuresis which seems to be beneficial for COVID etcetera Overall had a long discussion again with patient's spouse about code status basically about intubation or no intubation. Spouse I think is appropriately concerned that if he were to get that is sick and require that level of support what would be the odds of his recovery and what would he recovered 2. His recovery state even if he completely recovered from the COVID portion of this would still place him in a place where he needs to be treated for his lung cancer in that would be delayed by this infection and there need for recovery and rehabilitation and what would that look like. Perhaps the need for intubation would be inappropriate line in the sand to draw for no more aggressive treatment considering quality of life and medium term prognosis etcetera. However patient himself is still pretty confident that he would want to be intubated he would want to chance to recover from this and therefore no changes to his code status or intubation status has been made as of this morning. Did discuss with patient and spouse that if we did make him a do not intubate we would focus on treating his hypoxia should that worsen and if it appeared that he was just not improving in that there was really no likelihood of any significant improvement we would focus more on comfort relief breathlessness with medication even at the risk of further depressing his respiratory status etcetera but focusing on comfort. I think that maybe part of that concern about how we would treat his sense of breathlessness if we were not going to intubate him but I promised that we could find medication to help with that but again the cost of that medication would be worsening his respiratory status and perhaps hastening his demise in that setting. For now no change in code status. Quality VTE Deep Vein Thrombosis/Pulmonary Embolism Present on Admission: No
[2022-07-05] MEDS: levoFLOXacin 750 MG/150 ML PIGGYBACK 100 MG IV (15:39)
[2022-07-05] MEDS: REMDESIVIR 100 MG in SODIUM CHLORIDE 0.9% 230 ML 250 MG IV (17:40)
--- NOTE | 2022-07-05 20:45 | PM.ICURNDS ---
- Date Patient Seen: 07/05/22 Time Patient Seen: 20:45 :: This patient was seen via real time interactive two-way audiovisual telecommunication. Note: remains hypoxic on high flow and nrb sats mid 90s hr 80s appears comfortable on precedex continue current care
[2022-07-06] VITALS (65 sets, daily range): BP systolic 81–131; BP diastolic 48–71; PULSE 68–112; RESP 15–51; TEMP 36.3–38.3; O2SAT 87–96
[2022-07-06] MEDS: CODEINE/GUAIFENESIN LIQUID 5ML UDC 10 ML PO ×3 (01:25→21:08)
[2022-07-06] MEDS: ACETAMINOPHEN 325 MG TABLET 650 MG PO (04:22)
[2022-07-06 04:30] LABS: Add Manual Diff / Slide Review NO; Basophils Absolute Auto 0 /uL (0-100); Basophils Percent Auto 0.3 % (0-2); Eosinophils Absolute Auto 0 /uL (0-450); Eosinophils Percent Auto 0.4 % (2-4); Hematocrit 36.5 % (41-53); Hemoglobin 12.2 g/dL (13.5-17.5); Lymphocytes Absolute Auto 1300 /uL (1100-4500); Lymphocytes Percent Auto 11.2 % (25-40); Mean Corpuscular HGB Conc 33.5 % (30-36); Mean Corpuscular Hemoglobin 29.6 PG (26-34); Mean Corpuscular Volume 88.2 fL (80-100); Monocytes Absolute Auto 600 /uL (0-900); Monocytes Percent Auto 5.1 % (3-14); Neutrophils Absolute Auto 9700 /uL (1500-7000); Platelet Count 349 X10^3/uL (150-400); Red Blood Cell Count 4.14 X10^6/uL (4.5-5.9); Red Cell Distribution Width 13.8 % (11.6-14.8); White Blood Cell Count 11.7 X10^3/uL (4.5-11.0)
[2022-07-06 04:37] LABS: Blood Urea Nitrogen 17 mg/dL (9-20); Calcium 8.4 mg/dL (8.4-10.2); Carbon Dioxide 31 mmol/L (22-32); Chloride 93 mmol/L (98-107); Estimated Glomerular Filt Rate > 60 mL/min (>60); Glucose 136 mg/dL (80-110); HEMOLYSIS < 15 (0-50); Magnesium 2.2 mg/dL (1.6-2.3); Potassium 3.6 mmol/L (3.4-5.1); Sodium 131 mmol/L (137-145)
[2022-07-06 05:03] LABS: Procalcitonin 0.21 ng/mL (<0.5)
[2022-07-06] MEDS: BENZONATATE 100 MG CAPSULE PO ×3 (05:38→21:08)
[2022-07-06] MEDS: PANTOPRAZOLE DR 40 MG TABLET PO (06:11)
--- NOTE | 2022-07-06 06:50 | PM.PN.EICU ---
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 ABG showed no CO2 retention. Chest CTA showed : ?1. Suboptimal opacification of central pulmonary arteries.? No definitive pulmonary embolism.? 2. Increased pleural thickening in right hemithorax consistent with worsening of pleural metastasis. 3. Increased bilateral interstitial and airspace opacities are likely a combination of pneumonia and lymphangitic carcinomatosis.? 4. Mediastinal and hilar lymphadenopathy, compatible with trinh metastases.? Pt. started on Decardron, Remdesivir, and Levaquin.? Pt. on/off intermittently BIPAP 12/5 60% and HFNC 40L 60%. Recent events: Overnight pt. required BIPAP for about 4hours per nursing but now he is back on HFNC 40L 60% Current Medications Current Medications Medications: Home Medications sildenafil 100 mg tablet 50 - 100 mg PO DAILY PRN sexual activity #10 tabs 09/13/21 [Rx Confirmed 07/03/22] losartan 25 mg tablet 25 mg PO DAILY #90 tabs 10/14/21 [Rx Confirmed 07/03/22] aspirin 81 mg capsule 81 mg PO DAILY 06/17/22 [History Confirmed 07/03/22] tamsulosin 0.4 mg capsule 0.4 mg PO DAILY #90 caps 06/19/22 [Rx Confirmed 07/03/22] gabapentin 300 mg capsule 300 mg PO .COMPLEX #90 caps 06/25/22 [Rx Confirmed 07/03/22] prednisone 10 mg tablet 10 mg PO DAILY 06/25/22 [History Confirmed 07/03/22] dextromethorphan HBr 15 mg capsule 15 mg PO .HS PRN cough #60 caps 06/26/22 [Rx Confirmed 07/03/22] guaifenesin 1,200 mg tablet, extended release 12 hr 1,200 mg PO BID #60 tabs 06/26/22 [Rx Confirmed 07/03/22] hydroxyzine HCl 50 mg tablet 100 mg PO QID PRN itching #180 tabs 06/26/22 [Rx Confirmed 07/03/22] ipratropium 20 mcg-albuterol 100 mcg/actuation mist for inhalation (Combivent Respimat) 1 puff inhalation Q4H PRN cough #4 grams 06/26/22 [Rx Confirmed 07/03/22] ondansetron 4 mg disintegrating tablet 4 mg PO TID #90 tabs 06/26/22 [Rx Confirmed 07/03/22] naloxone 4 mg/actuation nasal spray (Narcan) 4 mg intranasal Q3M PRN opioid overdose #2 ea 07/01/22 [Rx Confirmed 07/03/22] oxycodone 10 mg tablet 10 - 20 mg PO Q4H PRN pain #90 tabs 07/01/22 [Rx Confirmed 07/03/22] lxvpsrvynehvqxu-[id number]-HB 30 mg-10 mg-100 mg/5 mL oral syrup 5 ml PO Q4H PRN cough #473 mL 07/01/22 [Rx Confirmed 07/03/22] docusate sodium 100 mg capsule 200 mg PO BID PRN opioids #180 caps 07/02/22 [Rx Confirmed 07/03/22] fentanyl 37.5 mcg/hour transdermal patch 1 patch transdermal Q72H #5 ea 07/02/22 [Rx Confirmed 07/03/22] sennosides 8.6 mg tablet (Natural Senna Laxative) 8.6 mg PO BID PRN constipation #60 tabs 07/02/22 [Rx Confirmed 07/03/22] Visit Medications (administered) Generic Name Dose Route Start Last Admin Trade Name Albertoq PRN Reason Stop Dose Admin Acetaminophen 650 mg 07/03/22 16:35 07/06/22 04:22 Acetaminophen 325 Mg Tablet PO 650 mg Q6H PRN Administration Fever/Mild Pain (1-3) Aspirin 81 mg 07/04/22 09:00 07/05/22 08:01 Aspirin Ec 81 Mg Tablet PO 81 mg DAILY CINDI Administration Benzonatate 100 mg 07/03/22 20:42 07/06/22 05:38 Benzonatate 100 Mg Capsule PO 100 mg TID PRN Administration Cough Dexamethasone 6 mg 07/05/22 09:00 07/05/22 08:02 Dexamethasone 4 Mg/Ml Vial IV 6 mg DAILY CINDI Administration Docusate Sodium 200 mg 07/03/22 16:48 07/04/22 20:15 Docusate 100 Mg Capsule PO 200 mg BID PRN Administration opioids Enoxaparin Sodium 40 mg 07/03/22 21:00 07/05/22 20:38 Enoxaparin 40 Mg/0.4 Ml Syringe SUBCUT 40 mg BID CINDI Administration Fentanyl 25 mcg 07/03/22 17:00 07/03/22 17:04 Fentanyl 25 Mcg/Patch TOP 25 mcg Q72H CINDI Administration Furosemide 20 mg 07/03/22 21:00 07/05/22 20:39 Furosemide 20 Mg/2 Ml Vial IV 20 mg BID CINDI Administration Gabapentin 300 mg 07/03/22 21:00 07/05/22 20:39 Gabapentin 300 Mg Capsule PO 300 mg TID CINDI Administration Guaifenesin/Codeine Phosphate 10 ml 07/03/22 20:42 07/06/22 01:25 Codeine/Guaifenesin Liquid 5ml Udc PO 10 ml Q6H PRN Administration Cough Sodium Chloride 1,000 mls @ 100 mls/hr 07/03/22 16:45 07/03/22 16:56 Normal Saline 0.9% IV 100 mls/hr CONT CINDI Administration Remdesivir 100 mg/ Sodium 250 mls @ 250 mls/hr 07/04/22 17:00 07/05/22 19:43 Chloride IV 07/07/22 17:59 Infused DAILY@1700 CINDI Infusion Levofloxacin 750 mg in 150 mls @ 100 mls/hr 07/04/22 16:00 07/05/22 18:21 Levaquin IV Infused Q24H CINDI Infusion dexmedeTOMIDine in 0.9 % NaCL 400 mcg in 100 mls @ 4.875 mls/hr 07/04/22 21:15 07/06/22 04:29 Precedex IV 0.4 mcg/kg/hr TITRATE CINDI 9.75 mls/hr Titration Protocol 0.2 MCG/KG/HR Insulin Human Lispro 0 unit 07/03/22 21:00 07/05/22 20:44 Insulin Lispro 100 Unit/Ml 3ml Vial SUBCUT 4 unit ACHS CINDI Administration Protocol Oxycodone HCl 10 mg 07/03/22 16:35 07/05/22 16:51 Oxycodone Ir 10 Mg Tablet PO 10 mg Q3H PRN Administration Pain, Severe (7-10) Pantoprazole Sodium 40 mg 07/05/22 07:00 07/06/22 06:[address] 40 Mg Tablet PO 40 mg 0700 CINDI Administration Sodium Chloride 10 ml 07/03/22 21:07 07/05/22 20:39 Sodium Chloride 0.9% Flush IV 10 ml PRN PRN Administration Flush Sodium Chloride 10 ml 07/04/22 09:00 07/05/22 20:40 Sodium Chloride 0.9% Flush IV 10 ml BID CINDI Administration Tamsulosin HCl 0.4 mg 07/04/22 09:00 07/05/22 08:01 Tamsulosin 0.4 Mg Capsule PO 0.4 mg DAILY CINDI Administration Objective Ventilator Parameters: Ventilator Settings FiO2 0.75 Labs 07/06/22 04:19 07/06/22 04:19 Labs: Laboratory Results - last 24 hr 07/05/22 07/06/22 07/06/22 10:55 04:19 04:19 WBC RBC Hgb Hct MCV MCH MCHC RDW Plt Count Neut % (Auto) Lymph % (Auto) [place] % (Auto) Eos % (Auto) Baso % (Auto) Neut # (Auto) Lymph # (Auto) [place] # (Auto) Eos # (Auto) Baso # (Auto) Sodium 129 L 131 L Potassium 4.0 3.6 Chloride 93 L 93 L Carbon Dioxide 31 31 BUN 20 17 Creatinine 0.75 0.63 L Estimated GFR > 60 > 60 BUN/Creatinine Ratio 26.7 H 27.0 H Glucose 272 H 136 H D Calcium 8.3 L 8.4 Magnesium 2.2 Procalcitonin 0.21 07/06/22 04:19 WBC 11.7 H RBC 4.14 L Hgb 12.2 L Hct 36.5 L MCV 88.2 MCH 29.6 MCHC 33.5 RDW 13.8 Plt Count 349 Neut % (Auto) 83.0 H Lymph % (Auto) 11.2 L [place] % (Auto) 5.1 Eos % (Auto) 0.4 L Baso % (Auto) 0.3 Neut # (Auto) 9700 H Lymph # (Auto) 1300 [place] # (Auto) 600 Eos # (Auto) 0 Baso # (Auto) 0 Sodium Potassium Chloride Carbon Dioxide BUN Creatinine Estimated GFR BUN/Creatinine Ratio Glucose Calcium Magnesium Procalcitonin Exam Vital Signs (past 8 hours): - 07/05/22 23:00 07/05/22 23:00 07/05/22 23:02 Temperature Pulse Rate 82 Respiratory Rate 29 H Blood Pressure 89/53 L 98/59 L Pulse Oximetry 94 Oxygen Delivery Method Fraction of Inspired Oxygen 07/05/22 23:02 07/05/22 23:30 07/05/22 23:30 Temperature Pulse Rate 85 83 Respiratory Rate 27 H 31 H Blood Pressure 96/52 L Pulse Oximetry 94 93 Oxygen Delivery Method Fraction of Inspired Oxygen 07/05/22 23:56 07/06/22 00:00 07/06/22 00:00 Temperature Pulse Rate 88 87 Respiratory Rate 32 H 32 H Blood Pressure Pulse Oximetry 94 94 Oxygen Delivery Method Heated High Flow Fraction of Inspired Oxygen 07/06/22 00:00 07/06/22 00:30 07/06/22 00:30 Temperature 97.4 F L Pulse Rate 85 Respiratory Rate 33 H Blood Pressure 114/57 L 104/68 Pulse Oximetry 91 Oxygen Delivery Method Fraction of Inspired Oxygen 07/06/22 00:33 07/06/22 01:00 07/06/22 01:00 Temperature Pulse Rate 91 H 87 Respiratory Rate 32 H 33 H Blood Pressure 105/57 L Pulse Oximetry 92 90 L Oxygen Delivery Method Fraction of Inspired Oxygen 07/06/22 01:05 07/06/22 01:30 07/06/22 01:30 Temperature Pulse Rate 89 98 H Respiratory Rate 34 H 36 H Blood Pressure 114/57 L Pulse Oximetry 93 92 Oxygen Delivery Method Fraction of Inspired Oxygen 07/06/22 02:00 07/06/22 02:00 07/06/22 02:04 Temperature Pulse Rate 89 90 Respiratory Rate 32 H 32 H Blood Pressure 90/53 L Pulse Oximetry 92 92 Oxygen Delivery Method Fraction of Inspired Oxygen 07/06/22 02:30 07/06/22 02:30 07/06/22 03:01 Temperature Pulse Rate 91 H 104 H Respiratory Rate 35 H 40 H Blood Pressure 98/53 L Pulse Oximetry 93 91 Oxygen Delivery Method Fraction of Inspired Oxygen 07/06/22 03:01 07/06/22 03:03 07/06/22 04:07 Temperature Pulse Rate 100 H Respiratory Rate 36 H Blood Pressure 131/62 Pulse Oximetry 93 Oxygen Delivery Method Fraction of Inspired Oxygen 75 07/06/22 00:00 07/06/22 02:00 07/06/22 04:22 Temperature 100.9 F H Pulse Rate 97 H Respiratory Rate 30 H Blood Pressure Pulse Oximetry 90 L Oxygen Delivery Method Fraction of Inspired Oxygen 07/06/22 04:00 07/06/22 04:53 07/06/22 03:30 Temperature 99 F Pulse Rate Respiratory Rate Blood Pressure 95/54 L Pulse Oximetry Oxygen Delivery Method Heated High Flow Fraction of Inspired Oxygen 07/06/22 03:30 07/06/22 04:00 07/06/22 04:00 Temperature 100.1 F H Pulse Rate 92 H 112 H Respiratory Rate 37 H 44 H Blood Pressure 118/68 Pulse Oximetry 92 91 Oxygen Delivery Method Fraction of Inspired Oxygen 07/06/22 04:30 07/06/22 04:30 07/06/22 05:00 Temperature Pulse Rate 106 H 96 H Respiratory Rate 36 H 34 H Blood Pressure 115/68 Pulse Oximetry 91 89 L Oxygen Delivery Method Fraction of Inspired Oxygen 07/06/22 05:00 07/06/22 05:22 07/06/22 05:30 Temperature Pulse Rate 104 H 98 H Respiratory Rate 40 H 33 H Blood Pressure 89/52 L Pulse Oximetry 93 94 Oxygen Delivery Method Fraction of Inspired Oxygen 07/06/22 05:30 07/06/22 05:40 07/06/22 06:00 Temperature 98.6 F Pulse Rate 96 H 90 Respiratory Rate 33 H 30 H Blood Pressure 96/56 L Pulse Oximetry 94 92 Oxygen Delivery Method Fraction of Inspired Oxygen 07/06/22 06:00 07/06/22 06:05 Temperature Pulse Rate 88 Respiratory Rate 29 H Blood Pressure 98/57 L Pulse Oximetry 92 Oxygen Delivery Method Fraction of Inspired Oxygen Fraction of Inspired Oxygen 75 Oxygen Delivery Method Heated High Flow Oxygen Flow Rate 40 Narrative Exam Narrative: Patient seen over two way audio visual system. He is seen sitting up in bed in [facility] on HFNC. Quality TeleICU VTE Deep Vein Thrombosis/Pulmonary Embolism Present on Admission: No Assessment & Plan Assessment & Plan narrative: Assessment -Acute hypoxic respiratory failure -COVID PNA -stage IV Lung CA -mild hyponatremia Plan SHAMPOOER: no acute issues CV: HR 90-100s, hemodynamically stable Pulm:? HFNC as tolerated, BIPAP when patient more SOB -titrate FIO2 as needed to keep Pox 88-98% -continue decadron -encourage awake self proning ID: blood and sputum culture so far are negative -continue Remesivir for COVID PNA -procal is neg, if final cultures are neg will d/c Levaquin CV: hemodynamically stable Heme: -daily CBC GI: currently on general diet but if patient's respiratory status worsens (BIPAP ofr FIo2 requirements increased), then will consider switching to liquid diet or NPO if it seems more likely that patient is heading towards intubation FEN/Renal: -continue Lasix 20 mg BID to keep patient on dry side to optimize pulmonary status as long as BP and Cr tolerates -monitor BMP and replace electrolyte as needed -free water restriction for mild hyponatremia ENdo: BG elevated probably secondary to steroids -control high BG with SSI PPx: protonix and lovenox Code Status:? Currently patient wishes to be FULL CODE -if patient's respiratory status worsens, would readdress goals of care with patient CCT spent
[2022-07-06] MEDS: ASPIRIN EC 81 MG TABLET PO (08:18)
[2022-07-06] MEDS: DEXAMETHASONE 4 MG/ML VIAL 6 MG IV (08:18)
[2022-07-06] MEDS: GABAPENTIN 300 MG CAPSULE PO ×2 (08:18→20:43)
[2022-07-06] MEDS: TAMSULOSIN 0.4 MG CAPSULE PO (08:18)
[2022-07-06] MEDS: FUROSEMIDE 20 MG/2 ML VIAL IV ×2 (08:18→20:44)
[2022-07-06] MEDS: ENOXAPARIN 40 MG/0.4 ML SYRINGE SUBCUT ×2 (08:18→20:44)
[2022-07-06] MEDS: dexmedeTOMIDine in 0.9 % NaCL 400 MCG/100 ML PLAST..BAG 9.75 MCG IV (08:31)
--- NOTE | 2022-07-06 09:51 | PM.PN.1 ---
Subjective Subjective Date Patient Seen: 07/06/22 Time Patient Seen: 09:51 Interval history: Overall patient's oxygen requirement seems to have increased ever so slightly Really no other new complaints or issues Lab work this morning shows bit of leukocytosis likely secondary to the parental steroids. Otherwise no significant abnormalities. Sodium has improved. Patient and spouse has some questions about ongoing therapies. Getting some input from family members who have some medical knowledge wondering about the addition of vitamin-C vitamin-D vitamin-B complexes. Initially wanted to discontinue remdesivir. Concerned about reports in the media about problems with this particular drug including coming from physicians etcetera Exam Vital Signs (past 8 hours): - 07/06/22 02:00 07/06/22 02:00 07/06/22 02:04 Temperature Pulse Rate 89 90 Respiratory Rate 32 H 32 H Blood Pressure 90/53 L Pulse Oximetry 92 92 Oxygen Delivery Method Fraction of Inspired Oxygen 07/06/22 02:30 07/06/22 02:30 07/06/22 03:01 Temperature Pulse Rate 91 H 104 H Respiratory Rate 35 H 40 H Blood Pressure 98/53 L Pulse Oximetry 93 91 Oxygen Delivery Method Fraction of Inspired Oxygen 07/06/22 03:01 07/06/22 03:03 07/06/22 04:07 Temperature Pulse Rate 100 H Respiratory Rate 36 H Blood Pressure 131/62 Pulse Oximetry 93 Oxygen Delivery Method Fraction of Inspired Oxygen 75 07/06/22 02:00 07/06/22 04:22 07/06/22 04:00 Temperature 100.9 F H Pulse Rate 97 H Respiratory Rate Blood Pressure Pulse Oximetry Oxygen Delivery Method Heated High Flow Fraction of Inspired Oxygen 07/06/22 04:53 07/06/22 03:30 07/06/22 03:30 Temperature 99 F Pulse Rate 92 H Respiratory Rate 37 H Blood Pressure 95/54 L Pulse Oximetry 92 Oxygen Delivery Method Fraction of Inspired Oxygen 07/06/22 04:00 07/06/22 04:00 07/06/22 04:30 Temperature 100.1 F H Pulse Rate 112 H 106 H Respiratory Rate 44 H 36 H Blood Pressure 118/68 Pulse Oximetry 91 91 Oxygen Delivery Method Fraction of Inspired Oxygen 07/06/22 04:30 07/06/22 05:00 07/06/22 05:00 Temperature Pulse Rate 96 H Respiratory Rate 34 H Blood Pressure 115/68 89/52 L Pulse Oximetry 89 L Oxygen Delivery Method Fraction of Inspired Oxygen 07/06/22 05:22 07/06/22 05:30 07/06/22 05:30 Temperature 98.6 F Pulse Rate 104 H 98 H Respiratory Rate 40 H 33 H Blood Pressure 96/56 L Pulse Oximetry 93 94 Oxygen Delivery Method Fraction of Inspired Oxygen 07/06/22 05:40 07/06/22 06:00 07/06/22 06:00 Temperature Pulse Rate 96 H 90 Respiratory Rate 33 H 30 H Blood Pressure 98/57 L Pulse Oximetry 94 92 Oxygen Delivery Method Fraction of Inspired Oxygen 07/06/22 06:05 07/06/22 06:30 07/06/22 06:30 Temperature Pulse Rate 88 86 Respiratory Rate 29 H 31 H Blood Pressure 94/61 Pulse Oximetry 92 92 Oxygen Delivery Method Fraction of Inspired Oxygen 07/06/22 07:00 07/06/22 07:00 07/06/22 07:30 Temperature Pulse Rate 86 Respiratory Rate 32 H Blood Pressure 100/56 L 102/63 Pulse Oximetry 93 Oxygen Delivery Method Fraction of Inspired Oxygen 07/06/22 07:30 07/06/22 07:20 07/06/22 08:00 Temperature Pulse Rate 93 H 98 H Respiratory Rate 44 H 30 H Blood Pressure 100/56 L Pulse Oximetry 95 91 Oxygen Delivery Method Fraction of Inspired Oxygen 07/06/22 08:00 07/06/22 08:30 07/06/22 08:30 Temperature Pulse Rate 87 87 Respiratory Rate 36 H 36 H Blood Pressure 122/69 Pulse Oximetry 96 95 Oxygen Delivery Method Fraction of Inspired Oxygen 07/06/22 08:00 07/06/22 09:00 07/06/22 09:00 Temperature 98.4 F Pulse Rate 99 H Respiratory Rate 41 H Blood Pressure 118/71 Pulse Oximetry 91 Oxygen Delivery Method Heated High Flow Fraction of Inspired Oxygen Fraction of Inspired Oxygen 75 Oxygen Delivery Method Heated High Flow Oxygen Flow Rate 40 Objective Labs 07/06/22 04:19 07/06/22 04:19 Labs: Laboratory Results - last 24 hr 07/05/22 07/06/22 07/06/22 10:55 04:19 04:19 WBC RBC Hgb Hct MCV MCH MCHC RDW Plt Count Neut % (Auto) Lymph % (Auto) [place] % (Auto) Eos % (Auto) Baso % (Auto) Neut # (Auto) Lymph # (Auto) [place] # (Auto) Eos # (Auto) Baso # (Auto) Sodium 129 L 131 L Potassium 4.0 3.6 Chloride 93 L 93 L Carbon Dioxide 31 31 BUN 20 17 Creatinine 0.75 0.63 L Estimated GFR > 60 > 60 BUN/Creatinine Ratio 26.7 H 27.0 H Glucose 272 H 136 H D Calcium 8.3 L 8.4 Magnesium 2.2 Procalcitonin 0.21 07/06/22 04:19 WBC 11.7 H RBC 4.14 L Hgb 12.2 L Hct 36.5 L MCV 88.2 MCH 29.6 MCHC 33.5 RDW 13.8 Plt Count 349 Neut % (Auto) 83.0 H Lymph % (Auto) 11.2 L [place] % (Auto) 5.1 Eos % (Auto) 0.4 L Baso % (Auto) 0.3 Neut # (Auto) 9700 H Lymph # (Auto) 1300 [place] # (Auto) 600 Eos # (Auto) 0 Baso # (Auto) 0 Sodium Potassium Chloride Carbon Dioxide BUN Creatinine Estimated GFR BUN/Creatinine Ratio Glucose Calcium Magnesium Procalcitonin PFSH Medical History Adenocarcinoma of right lung, stage 4 Adrenal insufficiency BPH w urinary obs/LUTS Chest wall pain following surgery COVID-19 Diabetes History of colonic polyps Hypertension Shoulder impingement Tobacco consumption Surgical History H/O hand surgery (~2013) H/O shoulder surgery (~1997) History of lung surgery History of vascular access device Family History Father Prostate cancer Social History household members: spouse Smoking Status: Former smoker alcohol intake: current substance use type: does not use Assessment & Plan Assessment & Plan narrative: 1. Respiratory failure-at this point patient's clinical course seems to be more consistent with a serious COVID infection than anything else. Continue aggressive treatment for COVID as well as his parental IV antibiotics and respiratory support Continue with current therapies including the Precedex which makes sense in effort to reduce his anxiety without causing respiratory depression etcetera 2. Diabetes-patient's numbers clearly better. Continue to monitor. Consider long-acting insulin if not improving 3. Fluids/electrolytes/renal-patient is still producing modest amounts of urine with the furosemide. Creatinine has remained stable, and hyponatremia has improved.. Electrolytes otherwise okay. Continue as per tele intensivists with diuresis which seems to be beneficial for COVID etcetera Overall patient appears to be probably stable maybe little bit more of an oxygen requirement Did have a joya discussion with patient and spouse regarding the use of remdesivir. In my opinion and based on my review of the literature the evidence that remdesivir is helpful far far outweighs any evidence that might be harmful in any way shape or form. While I know there are reports out there of issues I think the benefit that is been documented is far more reliable and would strongly recommend he continue with remdesivir for the full course. He did ask about ivermectin as well and I discussed that with patient and spouse that there are now studies involving the use of ivermectin and none of them seem to show any net benefit in patients and of course I again went over with patient that the levels of ivermectin required to obtain the antiviral effects seen in a test tube/bench top setting are quite toxic to the human body. After this discussion patient is okay to continue with remdesivir for now. He is okay to continue with dexamethasone as well. Patient's spouse also been given a POLST form by nursing staff. Unclear exactly how to fill that out. We went over that at length describing the fact that this particular form is really designed for an outpatient setting to tell EMS what therapies or treatments are desired or mostly what is not desired in the setting of a patient being unable to express those wishes themselves. In other words if the patient's found down with no pulse or not breathing what would they want done or if only partly in that situation etcetera In the end the question comes down to if he were to get worse from here the only thing that we could do differently would be to intubate him. After ongoing discussion between patient's spouse and myself I think all of us are in agreement that the likelihood of his recovery should he declined to the point where intubation if necessary is extremely small. The likelihood of meaningful recovery to a inappropriate acceptable quality of life is near 0 with the Specter of the lung cancer still present even if the infectious components are absent Therefore patient is okay with in fact requests no intubation if he were to decline significantly. Therefore I will change his code status to do not intubate as of now. Continue with all other therapies without change. I will add some oral vitamin-D vitamin-C and B complex vitamins at patient's request. Quality VTE Deep Vein Thrombosis/Pulmonary Embolism Present on Admission: No
[2022-07-06] MEDS: ASCORBIC ACID 500 MG TABLET 1000 MG PO (10:56)
[2022-07-06] MEDS: CHOLECALCIFEROL (VITAMIN D3) 1,000 UNIT TABLET 2000 UNIT PO (10:56)
[2022-07-06] MEDS: INSULIN LISPRO 100 UNIT/ML 3ML VIAL SUBCUT ×3 (11:50→20:45)
--- NOTE | 2022-07-06 14:17 | CM.DPNOTE ---
Discharge Planning Note: Spoke with spouse Tahira this morning about the POLST form, provided her a copy and educated her what all of the interventions mean, she was very interested and asking questions. Recommended she review with doctor today and ask any questions she needs answering. Currently patient is a full code. Plan: Continue to follow closely for discharge planning needs. Patricia Lerma RN/DCP
[2022-07-06] MEDS: REMDESIVIR 100 MG in SODIUM CHLORIDE 0.9% 230 ML 250 MG IV (16:32)
[2022-07-06] MEDS: fentaNYL 25 MCG/PATCH TOP (16:37)
[2022-07-06] MEDS: dexmedeTOMIDine in 0.9 % NaCL 400 MCG/100 ML PLAST..BAG 7.313 MCG IV (17:05)
--- NOTE | 2022-07-06 20:23 | PM.ICURNDS ---
- Date Patient Seen: 07/06/22 Time Patient Seen: 20:23 :: This patient was seen via real time interactive two-way audiovisual telecommunication. Note: Patient remains on precedex 0.3 mcg. Currently on HFNC 40/60%. Diuresed and negative 3 liters. Code status changed to DNI. D/w bedside RN.
[2022-07-06] MEDS: SODIUM CHLORIDE 0.9% FLUSH 10 ML IV (20:45)
[2022-07-06] MEDS: SENNOSIDES 8.6 MG TABLET PO (21:08)
[2022-07-06 21:19] LABS: Albumin 3.1 g/dL (3.5-5.0); BUN Creatinine Ratio 23.7 (6-22); Blood Urea Nitrogen 14 mg/dL (9-20); Calcium 8.6 mg/dL (8.4-10.2); Carbon Dioxide 33 mmol/L (22-32); Chloride 97 mmol/L (98-107); Estimated Glomerular Filt Rate > 60 mL/min (>60); Glucose 177 mg/dL (80-110); HEMOLYSIS < 15 (0-50); Magnesium 2.6 mg/dL (1.6-2.3); Phosphorous 4.2 mg/dL (2.3-3.7); Potassium 4.1 mmol/L (3.4-5.1); Sodium 131 mmol/L (137-145)
[2022-07-07] VITALS (40 sets, daily range): BP systolic 91–140; BP diastolic 55–84; PULSE 61–92; RESP 19–42; TEMP 36.1–36.6; O2SAT 87–99
[2022-07-07] MEDS: CODEINE/GUAIFENESIN LIQUID 5ML UDC 10 ML PO ×2 (02:38→19:47)
[2022-07-07] MEDS: ACETAMINOPHEN 325 MG TABLET 650 MG PO ×2 (03:39→19:47)
[2022-07-07] MEDS: BENZONATATE 100 MG CAPSULE PO ×2 (04:50→23:37)
[2022-07-07] MEDS: dexmedeTOMIDine in 0.9 % NaCL 400 MCG/100 ML PLAST..BAG 8.531 MCG IV (04:51)
[2022-07-07 05:19] LABS: Add Manual Diff / Slide Review NO; Basophils Absolute Auto 0 /uL (0-100); Basophils Percent Auto 0.3 % (0-2); Eosinophils Absolute Auto 0 /uL (0-450); Eosinophils Percent Auto 0.4 % (2-4); Hematocrit 36.3 % (41-53); Hemoglobin 12.3 g/dL (13.5-17.5); Lymphocytes Absolute Auto 700 /uL (1100-4500); Lymphocytes Percent Auto 6.1 % (25-40); Mean Corpuscular HGB Conc 33.9 % (30-36); Mean Corpuscular Hemoglobin 29.7 PG (26-34); Mean Corpuscular Volume 87.7 fL (80-100); Monocytes Absolute Auto 600 /uL (0-900); Monocytes Percent Auto 5.3 % (3-14); Neutrophils Absolute Auto 10500 /uL (1500-7000); Neutrophils Percent Auto 87.9 % (50-75); Platelet Count 371 X10^3/uL (150-400); Red Blood Cell Count 4.14 X10^6/uL (4.5-5.9); Red Cell Distribution Width 13.5 % (11.6-14.8)
[2022-07-07 05:26] LABS: Alanine Aminotransferase 28 IU/L (<50); Albumin 3.2 g/dL (3.5-5.0); Albumin Globulin Ratio 0.9 (1.0-2.8); Alkaline Phosphatase 56 U/L (38-126); Aspartate Aminotransferase 25 IU/L (17-59); Bilirubin Total 0.5 mg/dL (0.2-1.3); Blood Urea Nitrogen 18 mg/dL (9-20); Calcium 8.6 mg/dL (8.4-10.2); Carbon Dioxide 33 mmol/L (22-32); Chloride 94 mmol/L (98-107); Estimated Glomerular Filt Rate > 60 mL/min (>60); Globulin 3.5 g/dL (1.7-4.1); Glucose 157 mg/dL (80-110); HEMOLYSIS < 15 (0-50); Potassium 3.9 mmol/L (3.4-5.1); Sodium 133 mmol/L (137-145); Total Protein 6.7 g/dL (6.3-8.2)
[2022-07-07] MEDS: PANTOPRAZOLE DR 40 MG TABLET PO (06:33)
--- NOTE | 2022-07-07 07:44 | P.PN_ITS ---
Subjective Subjective Date Patient Seen: 07/07/22 Time Patient Seen: 07:45 Interval history: Basically very little if any change. Oxygen requirement seems to have crept up slightly. Lab work unremarkable, hyponatremia improved No growth in any of his blood cultures. Blood sugars have crept up as well over 200 at times Patient reports however that he feels stronger this morning. Still producing modest amounts of sputum but feels like he can cough it up a bit easier. Heart rate is down some. He is hungry actually little bit and able to get some down. Spouse also reports that he was using his cell phone to text yesterday which is the first time in 2-3 days so she takes that as an improvement as well Patient looking for some sort of additional assistance with sedation so that he may tolerate BiPAP and be able to sleep more. When he is wearing the BiPAP he can not really rest it is uncomfortable enough. He is on Precedex of tried slightly higher doses Exam Vital Signs (past 8 hours): - 07/07/22 00:00 07/07/22 00:00 07/07/22 00:00 Temperature 97.0 F L Pulse Rate 89 Respiratory Rate 42 H Blood Pressure 140/84 Pulse Oximetry 87 L Oxygen Delivery Method Heated High Flow Non -Rebreather Oxygen Flow Rate 50 07/07/22 01:00 07/07/22 01:00 07/07/22 02:00 Temperature Pulse Rate 71 67 Respiratory Rate 27 H 26 H Blood Pressure 93/55 L Pulse Oximetry 90 L 92 Oxygen Delivery Method Oxygen Flow Rate 50 50 50 07/07/22 02:00 07/07/22 02:15 07/07/22 02:20 Temperature Pulse Rate 66 82 Respiratory Rate 26 H 31 H Blood Pressure 91/61 Pulse Oximetry 92 92 Oxygen Delivery Method Oxygen Flow Rate 50 50 07/07/22 02:20 07/07/22 03:00 07/07/22 03:01 Temperature Pulse Rate 79 79 Respiratory Rate 31 H 28 H Blood Pressure 116/74 Pulse Oximetry 90 L 90 L Oxygen Delivery Method Oxygen Flow Rate 07/07/22 03:01 07/07/22 04:00 07/07/22 04:00 Temperature Pulse Rate 71 Respiratory Rate 19 Blood Pressure 110/61 100/59 L Pulse Oximetry 91 Oxygen Delivery Method Oxygen Flow Rate 60 07/07/22 04:01 07/07/22 05:02 07/07/22 05:02 Temperature Pulse Rate 70 75 Respiratory Rate 24 29 H Blood Pressure 103/63 Pulse Oximetry 93 94 Oxygen Delivery Method Oxygen Flow Rate 07/07/22 05:03 07/07/22 04:00 07/07/22 06:00 Temperature Pulse Rate 75 Respiratory Rate 23 Blood Pressure 108/68 Pulse Oximetry 95 Oxygen Delivery Method Heated High Flow Non -Rebreather Oxygen Flow Rate 60 07/07/22 06:00 07/07/22 06:12 07/07/22 03:00 Temperature Pulse Rate 77 82 92 H Respiratory Rate 23 26 H 28 H Blood Pressure Pulse Oximetry 94 94 Oxygen Delivery Method Oxygen Flow Rate 60 60 07/07/22 06:28 07/07/22 07:00 07/07/22 07:00 Temperature Pulse Rate 72 Respiratory Rate 28 H 26 H Blood Pressure 99/63 Pulse Oximetry 94 Oxygen Delivery Method Oxygen Flow Rate Fraction of Inspired Oxygen 75 Oxygen Delivery Method Heated High Flow,Non -Rebreather Oxygen Flow Rate 60 Objective Labs 07/07/22 05:00 07/07/22 05:00 Labs: Laboratory Results - last 24 hr 07/06/22 07/07/22 07/07/22 20:30 05:00 05:00 WBC 12.0 H RBC 4.14 L Hgb 12.3 L Hct 36.3 L MCV 87.7 MCH 29.7 MCHC 33.9 RDW 13.5 Plt Count 371 Neut % (Auto) 87.9 H Lymph % (Auto) 6.1 L Pope % (Auto) 5.3 Eos % (Auto) 0.4 L Baso % (Auto) 0.3 Neut # (Auto) 01649 H Lymph # (Auto) 700 L Pope # (Auto) 600 Eos # (Auto) 0 Baso # (Auto) 0 Sodium 131 L 133 L Potassium 4.1 3.9 Chloride 97 L 94 L Carbon Dioxide 33 H 33 H BUN 14 18 Creatinine 0.59 L 0.62 L Estimated GFR > 60 > 60 BUN/Creatinine Ratio 23.7 H 29.0 H Glucose 177 H 157 H Calcium 8.6 8.6 Phosphorus 4.2 H Magnesium 2.6 H Total Bilirubin 0.5 AST 25 ALT 28 Alkaline Phosphatase 56 Total Protein 6.7 Albumin 3.1 L 3.2 L Globulin 3.5 Albumin/Globulin Ratio 0.9 L PFSH Medical History Adenocarcinoma of right lung, stage 4 Adrenal insufficiency BPH w urinary obs/LUTS Chest wall pain following surgery COVID-19 Diabetes History of colonic polyps Hypertension Shoulder impingement Tobacco consumption Surgical History H/O hand surgery (~2013) H/O shoulder surgery (~1997) History of lung surgery History of vascular access device Family History Father Prostate cancer Social History household members: spouse Smoking Status: Former smoker alcohol intake: current substance use type: does not use Assessment & Plan Assessment & Plan narrative: 1. Respiratory failure-patient continues I think to be meta stable. Unfortunately he is not shown any progressive improvement and if anything is gone the other direction. Seems like the most likely etiology here is a combination of his underlying malignancy as well as COVID infection. Doubt there is a significant bacterial pneumonia infection least that is responding to antibiotics. He may have a bit of a postobstructive pneumonia that is only going to be improved with treatment of his lung cancer which of course is not in the near term future going to happen. Continue with supportive care continue with remdesivir the IV dexamethasone and the high-flow oxygen therapy. As per tele certified peer specialist maybe appropriate to discontinue IV antibiotics at some point in the near future Continue to try and use BiPAP as necessary to allow patient to rest. I will defer management of his sedation and BiPAP etcetera to the tele certified peer specialist so of far greater experience in this situation than I do. 2. Diabetes-patient's numbers have sort of trickled back up. I am going to go ahead and initiate some long-acting insulin this morning. He received about 22 units of coverage insulin yesterday I am going to start with 15 units of long- acting insulin this morning and continue with the coverage insulin as well. He continues to have limited oral intake but is of course receiving the IV dexamethasone. Hopefully with this we can get his blood sugars down to the 160- 180 range which would be my target 3. Fluids/electrolytes/renal-patient's renal function remains normal. Hyponatremia is somewhat improved. Continue with current therapies including the furosemide as he continues to have a net negative fluid balance which is the goal Overall patient has not really improved and is not really gone dramatically downhill anyway. Patient does seem to show some subjective and objective evidence of improvement with decreased heart rate increased appetite increased other activities such as using a cell phone etcetera. Perhaps this is a sign of early improvement. My previous experience with COVID patients in this situation should just it may still be several more days before we can expect anymore dramatic improvement (least that would not be out of the ordinary to take that long) I will try and discuss options for therapies for his pulmonary neoplasm with his oncologist sometime this week, so that we may all be on the same page with patient's current status plans for the short term and medium term future. Quality VTE Deep Vein Thrombosis/Pulmonary Embolism Present on Admission: No
--- NOTE | 2022-07-07 09:18 | PM.PN.EICU ---
Subjective Subjective IF CAMERA ACTIVATED, patient seen via real-time interactive audiovisual communication: Camera activated Consent obtained for tele-chief contract officer care: Yes Patient Location: ICU Provider location (State): [place] Other participants/roles: RN Interval history: Patient Summary: 67 yo man with PMH Of stage IV lung CA (currently on Keytruda) admitted 07/03 with acute hypoxic respiratory failure and Covid Positive (unvaccinated again Covid 19). ABG showed no CO2 retention. Chest CTA showed : ?1. Suboptimal opacification of central pulmonary arteries.? No definitive pulmonary embolism.? 2. Increased pleural thickening in right hemithorax consistent with worsening of pleural metastasis. 3. Increased bilateral interstitial and airspace opacities are likely a combination of pneumonia and lymphangitic carcinomatosis.? 4. Mediastinal and hilar lymphadenopathy, compatible with trinh metastases.? Pt. started on Decardron, Remdesivir, and Levaquin.? Pt. on/off intermittently BIPAP 12/5 60% and HFNC 40L 60%. 07/05: BIPAP 12/5 60% and HFNC 40L 60% 07/06: HFNC requirement increased (FIO2 75%-->85%-->100$%) Recent events: Patient now requiring HFNC 60L 100%. Per nursing he is having difficulty tolerating BIPAP because of anxiety. Currently he is on Precedex at 0.3 mcg/kg/hr. BP 90-110s/50-60s. Patient is >6L net neg since admission per I/O's charting. Patient has changed his code status to DNI but not DNR. Current Medications Current Medications Medications: Home Medications sildenafil 100 mg tablet 50 - 100 mg PO DAILY PRN sexual activity #10 tabs 09/13/21 [Rx Confirmed 07/03/22] losartan 25 mg tablet 25 mg PO DAILY #90 tabs 10/14/21 [Rx Confirmed 07/03/22] aspirin 81 mg capsule 81 mg PO DAILY 06/17/22 [History Confirmed 07/03/22] tamsulosin 0.4 mg capsule 0.4 mg PO DAILY #90 caps 06/19/22 [Rx Confirmed 07/03/22] gabapentin 300 mg capsule 300 mg PO .COMPLEX #90 caps 06/25/22 [Rx Confirmed 07/03/22] prednisone 10 mg tablet 10 mg PO DAILY 06/25/22 [History Confirmed 07/03/22] dextromethorphan HBr 15 mg capsule 15 mg PO .HS PRN cough #60 caps 06/26/22 [Rx Confirmed 07/03/22] guaifenesin 1,200 mg tablet, extended release 12 hr 1,200 mg PO BID #60 tabs 06/26/22 [Rx Confirmed 07/03/22] hydroxyzine HCl 50 mg tablet 100 mg PO QID PRN itching #180 tabs 06/26/22 [Rx Confirmed 07/03/22] ipratropium 20 mcg-albuterol 100 mcg/actuation mist for inhalation (Combivent Respimat) 1 puff inhalation Q4H PRN cough #4 grams 06/26/22 [Rx Confirmed 07/03/22] ondansetron 4 mg disintegrating tablet 4 mg PO TID #90 tabs 06/26/22 [Rx Confirmed 07/03/22] naloxone 4 mg/actuation nasal spray (Narcan) 4 mg intranasal Q3M PRN opioid overdose #2 ea 07/01/22 [Rx Confirmed 07/03/22] oxycodone 10 mg tablet 10 - 20 mg PO Q4H PRN pain #90 tabs 07/01/22 [Rx Confirmed 07/03/22] mmglhrkbtjstluw-fbhrxtv-OX 30 mg-10 mg-100 mg/5 mL oral syrup 5 ml PO Q4H PRN cough #473 mL 07/01/22 [Rx Confirmed 07/03/22] docusate sodium 100 mg capsule 200 mg PO BID PRN opioids #180 caps 07/02/22 [Rx Confirmed 07/03/22] fentanyl 37.5 mcg/hour transdermal patch 1 patch transdermal Q72H #5 ea 07/02/22 [Rx Confirmed 07/03/22] sennosides 8.6 mg tablet (Natural Senna Laxative) 8.6 mg PO BID PRN constipation #60 tabs 07/02/22 [Rx Confirmed 07/03/22] Visit Medications (administered) Generic Name Dose Route Start Last Admin Trade Name Freq PRN Reason Stop Dose Admin Acetaminophen 650 mg 07/03/22 16:35 07/07/22 03:39 Acetaminophen 325 Mg Tablet PO 650 mg Q6H PRN Administration Fever/Mild Pain (1-3) Ascorbic Acid 1,000 mg 07/06/22 10:45 07/06/22 10:56 Ascorbic Acid 500 Mg Tablet PO 1,000 mg DAILY CINDI Administration Aspirin 81 mg 07/04/22 09:00 07/06/22 08:18 Aspirin Ec 81 Mg Tablet PO 81 mg DAILY CINDI Administration Benzonatate 100 mg 07/03/22 20:42 07/07/22 04:50 Benzonatate 100 Mg Capsule PO 100 mg TID PRN Administration Cough Dexamethasone 6 mg 07/05/22 09:00 07/06/22 08:18 Dexamethasone 4 Mg/Ml Vial IV 6 mg DAILY CINDI Administration Docusate Sodium 200 mg 07/03/22 16:48 07/04/22 20:15 Docusate 100 Mg Capsule PO 200 mg BID PRN Administration opioids Enoxaparin Sodium 40 mg 07/03/22 21:00 07/06/22 20:44 Enoxaparin 40 Mg/0.4 Ml Syringe SUBCUT 40 mg BID CINDI Administration Fentanyl 25 mcg 07/03/22 17:00 07/06/22 16:37 Fentanyl 25 Mcg/Patch TOP 25 mcg Q72H CINDI Administration Gabapentin 300 mg 07/03/22 21:00 07/06/22 20:43 Gabapentin 300 Mg Capsule PO 300 mg TID CINDI Administration Guaifenesin/Codeine Phosphate 10 ml 07/03/22 20:42 07/07/22 02:38 Codeine/Guaifenesin Liquid 5ml Udc PO 10 ml Q6H PRN Administration Cough Sodium Chloride 1,000 mls @ 100 mls/hr 07/03/22 16:45 07/03/22 16:56 Normal Saline 0.9% IV 100 mls/hr CONT CINDI Administration Remdesivir 100 mg/ Sodium 250 mls @ 250 mls/hr 07/04/22 17:00 07/06/22 19:00 Chloride IV 07/07/22 17:59 Infused DAILY@1700 CINDI Infusion dexmedeTOMIDine in 0.9 % NaCL 400 mcg in 100 mls @ 4.875 mls/hr 07/04/22 21:15 07/07/22 04:51 Precedex IV 0.35 mcg/kg/hr TITRATE CINDI 8.531 mls/hr Administration Protocol 0.2 MCG/KG/HR Insulin Human Lispro 0 unit 07/03/22 21:00 07/06/22 20:45 Insulin Lispro 100 Unit/Ml 3ml Vial SUBCUT 4 unit ACHS CINDI Administration Protocol Oxycodone HCl 10 mg 07/03/22 16:35 07/05/22 16:51 Oxycodone Ir 10 Mg Tablet PO 10 mg Q3H PRN Administration Pain, Severe (7-10) Pantoprazole Sodium 40 mg 07/05/22 07:00 07/07/22 06:[address] 40 Mg Tablet PO 40 mg 0700 CINDI Administration Sennosides 8.6 mg 07/03/22 16:48 07/06/22 21:08 Sennosides 8.6 Mg Tablet PO 8.6 mg BID PRN Administration constipation Sodium Chloride 10 ml 07/03/22 21:07 07/05/22 20:39 Sodium Chloride 0.9% Flush IV 10 ml PRN PRN Administration Flush Sodium Chloride 10 ml 07/04/22 09:00 07/06/22 20:45 Sodium Chloride 0.9% Flush IV 10 ml BID CINDI Administration Tamsulosin HCl 0.4 mg 07/04/22 09:00 07/06/22 08:18 Tamsulosin 0.4 Mg Capsule PO 0.4 mg DAILY CINDI Administration Vitamin D 2,000 unit 07/06/22 10:45 07/06/22 10:56 Cholecalciferol (Vitamin D3) 1,000 Unit Tablet PO 2,000 unit DAILY CINDI Administration Objective Ventilator Parameters: Ventilator Settings FiO2 100 Labs 07/07/22 05:00 07/07/22 05:00 Labs: Laboratory Results - last 24 hr 07/06/22 07/07/22 07/07/22 20:30 05:00 05:00 WBC 12.0 H RBC 4.14 L Hgb 12.3 L Hct 36.3 L MCV 87.7 MCH 29.7 MCHC 33.9 RDW 13.5 Plt Count 371 Neut % (Auto) 87.9 H Lymph % (Auto) 6.1 L [place] % (Auto) 5.3 Eos % (Auto) 0.4 L Baso % (Auto) 0.3 Neut # (Auto) 84117 H Lymph # (Auto) 700 L [place] # (Auto) 600 Eos # (Auto) 0 Baso # (Auto) 0 Sodium 131 L 133 L Potassium 4.1 3.9 Chloride 97 L 94 L Carbon Dioxide 33 H 33 H BUN 14 18 Creatinine 0.59 L 0.62 L Estimated GFR > 60 > 60 BUN/Creatinine Ratio 23.7 H 29.0 H Glucose 177 H 157 H Calcium 8.6 8.6 Phosphorus 4.2 H Magnesium 2.6 H Total Bilirubin 0.5 AST 25 ALT 28 Alkaline Phosphatase 56 Total Protein 6.7 Albumin 3.1 L 3.2 L Globulin 3.5 Albumin/Globulin Ratio 0.9 L Exam Vital Signs (past 8 hours): - 07/07/22 02:00 07/07/22 02:00 07/07/22 02:15 Temperature Pulse Rate 67 66 Respiratory Rate 26 H 26 H Blood Pressure 91/61 Pulse Oximetry 92 92 Oxygen Delivery Method Oxygen Flow Rate 50 50 50 07/07/22 02:20 07/07/22 02:20 07/07/22 03:00 Temperature Pulse Rate 82 79 Respiratory Rate 31 H 31 H Blood Pressure 116/74 Pulse Oximetry 92 90 L Oxygen Delivery Method Oxygen Flow Rate 07/07/22 03:01 07/07/22 03:01 07/07/22 04:00 Temperature Pulse Rate 79 71 Respiratory Rate 28 H 19 Blood Pressure 110/61 Pulse Oximetry 90 L 91 Oxygen Delivery Method Oxygen Flow Rate 60 07/07/22 04:00 07/07/22 04:01 07/07/22 05:02 Temperature Pulse Rate 70 Respiratory Rate 24 Blood Pressure 100/59 L 103/63 Pulse Oximetry 93 Oxygen Delivery Method Oxygen Flow Rate 07/07/22 05:02 07/07/22 05:03 07/07/22 04:00 Temperature Pulse Rate 75 75 Respiratory Rate 29 H 23 Blood Pressure Pulse Oximetry 94 95 Oxygen Delivery Method Heated High Flow Non -Rebreather Oxygen Flow Rate 07/07/22 06:00 07/07/22 06:00 07/07/22 06:12 Temperature Pulse Rate 77 82 Respiratory Rate 23 26 H Blood Pressure 108/68 Pulse Oximetry 94 94 Oxygen Delivery Method Oxygen Flow Rate 60 60 60 07/07/22 03:00 07/07/22 06:28 07/07/22 07:00 Temperature Pulse Rate 92 H Respiratory Rate 28 H 28 H Blood Pressure 99/63 Pulse Oximetry Oxygen Delivery Method Oxygen Flow Rate 07/07/22 07:00 07/07/22 07:25 07/07/22 08:00 Temperature 97.7 F Pulse Rate 72 78 Respiratory Rate 26 H 28 H Blood Pressure 113/69 Pulse Oximetry 94 95 Oxygen Delivery Method Oxygen Flow Rate 07/07/22 08:00 Temperature Pulse Rate 82 Respiratory Rate 30 H Blood Pressure Pulse Oximetry 92 Oxygen Delivery Method Oxygen Flow Rate Fraction of Inspired Oxygen 75 Oxygen Delivery Method Heated High Flow,Non -Rebreather Oxygen Flow Rate 60 Narrative Exam Narrative: Patient seen over two way audio visual system. He is sitting up in bed on HFNC and talking to family. 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 HFNC currently maxed out agt 60L FIO2 100% -BIPAP if patient's Pox drops to <88 or if he is in distress (can increase precedex to try and help with tolerating BIPAP) -continue decadron -encourage awake self proning -Patient has changed his code status to DNI ID: blood and sputum culture so far are negative -continue Remesivir for COVID PNA -procal is neg, if final cultures are neg will d/c Levaquin CV: hemodynamically stable Heme: -daily CBC GI: currently on general diet. Though patient does not want intubation if he worsens, would still consider switching to liquid or soft diet if patient's respiratory status worsens to where he finds it difficult to manage regular diet. FEN/Renal: -hold lasix for now as patient is >6L net neg since admission and BP is borderline low at times (90s/50s) -monitor BMP and replace electrolyte as needed -free water restriction for mild hyponatremia ENdo: BG elevated probably secondary to steroids -control high BG with SSI PPx: protonix and lovenox Code Status:? DNI but not DNR. Encourage ongoing goals of care discussion with patient and family as patient's main problem is respiratory failure and therefor if he were to have cardiac arrest it would most likely be from pulmonary arrest and therefore CPR/shock would be futile in such case. Case discussed with Dr. Flaherty CCT spent 40 min
[2022-07-07] MEDS: INSULIN LISPRO 100 UNIT/ML 3ML VIAL SUBCUT ×4 (09:19→21:33)
[2022-07-07] MEDS: INSULIN GLARGINE 100 UNIT/ML 3ML PEN 15 UNIT SUBCUT (09:20)
[2022-07-07] MEDS: DEXAMETHASONE 4 MG/ML VIAL 6 MG IV (09:22)
[2022-07-07] MEDS: CHOLECALCIFEROL (VITAMIN D3) 1,000 UNIT TABLET 2000 UNIT PO (09:23)
[2022-07-07] MEDS: TAMSULOSIN 0.4 MG CAPSULE PO (09:23)
[2022-07-07] MEDS: ASCORBIC ACID 500 MG TABLET 1000 MG PO (09:23)
[2022-07-07] MEDS: ENOXAPARIN 40 MG/0.4 ML SYRINGE SUBCUT ×2 (09:23→21:26)
[2022-07-07] MEDS: ASPIRIN EC 81 MG TABLET PO (09:23)
[2022-07-07] MEDS: SODIUM CHLORIDE 0.9% FLUSH 10 ML IV ×2 (09:24→21:27)
[2022-07-07] MEDS: GABAPENTIN 300 MG CAPSULE PO ×2 (09:24→14:41)
--- NOTE | 2022-07-07 13:16 | DIET.CONS2 ---
Dietary Inpatient Consultation Note Admission Date: 07/03/2022 15:54 67y M screened by RD for poor POs since admission. RD discussed with pt nurse who states today he is eating better than yesterday. Pt is drinking ONS Ensure. Encouraged nurse to help pt find menu options that sound good to him and that he feels he can confidently eat. Nurse states family has been bringing in some food/snacks for pt. Will continue to monitor POs. Diet: 07/03/22 Dinner General (Regular) Diet Diet Modifications: Nutrition Percent Meal Consumed pt refused dinner 07/06/22 17:35 Percent Meal Consumed Pt refused breakfast, had ensure 07/06/22 09:06 Percent Meal Consumed 0% 07/05/22 18:00 Percent Meal Consumed wants ensure 07/05/22 13:32 Electronically Signed by: Jo Estrada 07/07/22 13:16 Clinical Dietitian [address] [id number]
[2022-07-07] MEDS: dexmedeTOMIDine in 0.9 % NaCL 400 MCG/100 ML PLAST..BAG 9.75 MCG IV ×2 (14:23→23:37)
--- NOTE | 2022-07-07 14:55 | PC.NURSE ---
Addendum entered by Deborah Escobar R.N. 07/07/22 18:56: Day shift: RT titrated O2 down to 88%. Pt saturation 96%-98% stable. Pt c/o SOB and not getting enough air despite 97%. This RN called RT. Pt given PRN breathing treatment. Pt appears anxious. Pt requested this RN to show spouse how to 100% oxygenate on heated high flow machine. This RN explained this is against policy and this cannot be accommodated. Pt 91%-95% currently. Care ongoing. Original Note: Day shift: Pt on heated high flow 100% FiO2 60L O2 saturation 90%-95%. This RN inquired if pt would use BiPAP, pt declined several times. Educated on the benefits of proning or side lying to off load lungs. Pt agreeable to do this later, not now. Titrated precedex gtt per protocol to attempt proning or BiPAP. Reintroduced BiPAP, proning or side lying, pt stated he has company coming. Pt declined a bed bath and linen change as well, offering to try later. Will reapproach. Care ongoing.
[2022-07-07] MEDS: REMDESIVIR 100 MG in SODIUM CHLORIDE 0.9% 230 ML 250 MG IV (16:50)
[2022-07-07] MEDS: ALBUTEROL/IPRATROPIUM 3 ML AMPUL INH (18:36)
--- NOTE | 2022-07-07 20:46 | PM.ICURNDS ---
- :: This patient was seen via real time interactive two-way audiovisual telecommunication. patietn fio2 requiremetns remian high, and infact have gotten igher. he remains DNI, bur cpr ok. Mirphine prn added for air hunger, but he is awake and seems to be comfrtoable at the moment. will need to conitnue GOC discussions
[2022-07-07] MEDS: SENNOSIDES 8.6 MG TABLET PO (21:25)
[2022-07-08] VITALS (38 sets, daily range): BP systolic 83–127; BP diastolic 58–76; PULSE 60–89; RESP 15–48; TEMP 27.6–36.9; O2SAT 89–98
[2022-07-08] MEDS: MORPHINE 4 MG/ML INJ IV (01:02)
[2022-07-08] MEDS: ACETAMINOPHEN 325 MG TABLET 650 MG PO (01:54)
[2022-07-08] MEDS: CODEINE/GUAIFENESIN LIQUID 5ML UDC 10 ML PO ×3 (01:54→23:12)
[2022-07-08 04:55] LABS: Add Manual Diff / Slide Review NO; Basophils Absolute Auto 0 /uL (0-100); Basophils Percent Auto 0.3 % (0-2); Eosinophils Absolute Auto 100 /uL (0-450); Eosinophils Percent Auto 0.5 % (2-4); Hematocrit 36.7 % (41-53); Hemoglobin 12.4 g/dL (13.5-17.5); Lymphocytes Absolute Auto 700 /uL (1100-4500); Lymphocytes Percent Auto 6.7 % (25-40); Mean Corpuscular HGB Conc 33.9 % (30-36); Mean Corpuscular Hemoglobin 29.7 PG (26-34); Mean Corpuscular Volume 87.6 fL (80-100); Monocytes Absolute Auto 600 /uL (0-900); Monocytes Percent Auto 6.4 % (3-14); Neutrophils Absolute Auto 8700 /uL (1500-7000); Neutrophils Percent Auto 86.1 % (50-75); Platelet Count 390 X10^3/uL (150-400); Red Blood Cell Count 4.19 X10^6/uL (4.5-5.9); Red Cell Distribution Width 13.3 % (11.6-14.8); White Blood Cell Count 10.1 X10^3/uL (4.5-11.0)
[2022-07-08 05:05] LABS: Alanine Aminotransferase 37 IU/L (<50); Albumin Globulin Ratio 0.9 (1.0-2.8); Alkaline Phosphatase 56 U/L (38-126); Aspartate Aminotransferase 34 IU/L (17-59); BUN Creatinine Ratio 28.8 (6-22); Bilirubin Total 0.3 mg/dL (0.2-1.3); Blood Urea Nitrogen 17 mg/dL (9-20); Calcium 8.6 mg/dL (8.4-10.2); Carbon Dioxide 32 mmol/L (22-32); Chloride 97 mmol/L (98-107); Estimated Glomerular Filt Rate > 60 mL/min (>60); Globulin 3.4 g/dL (1.7-4.1); Glucose 129 mg/dL (80-110); HEMOLYSIS < 15 (0-50); Potassium 4.1 mmol/L (3.4-5.1); Sodium 132 mmol/L (137-145); Total Protein 6.4 g/dL (6.3-8.2)
[2022-07-08] MEDS: PANTOPRAZOLE DR 40 MG TABLET PO (06:37)
[2022-07-08] MEDS: BENZONATATE 100 MG CAPSULE PO ×2 (06:37→21:17)
[2022-07-08] MEDS: dexmedeTOMIDine in 0.9 % NaCL 400 MCG/100 ML PLAST..BAG 12.188 MCG IV ×2 (07:44→22:29)
--- NOTE | 2022-07-08 08:07 | PM.PN.1 ---
Subjective Subjective Date Patient Seen: 07/08/22 Time Patient Seen: 08:08 Interval history: Patient had an excellent day yesterday by his report. Had much more of an appetite ate a whole bunch. Was talking on the phone and texting. Then he developed a sense of dyspnea which seem to trigger some level of anxiety he had what he was told by staff was a classic panic attack. Really quite miserable with that. Staff was able to talk him through that. Does continue on the Precedex which is started in effort to help him with anxiety related to dyspnea etcetera During that time he required increase in oxygen replacement therapy to maximum but he has been able to be weaned back down again. This morning still feeling okay had another panic attack this morning. Has gotten through that. Still feels better than he did at his worst. Still have episodes of coughing Feels like he is improved and moving in the right direction although certainly super slow Exam Vital Signs (past 8 hours): - 07/08/22 00:13 07/08/22 01:00 07/08/22 01:00 Temperature Pulse Rate 63 77 Respiratory Rate 26 H 39 H Blood Pressure 120/76 Pulse Oximetry 90 L 91 Oxygen Delivery Method Oxygen Flow Rate 50 50 Fraction of Inspired Oxygen 07/08/22 01:06 07/08/22 02:01 07/08/22 02:01 Temperature Pulse Rate 68 83 Respiratory Rate 37 H 48 H Blood Pressure 83/59 L Pulse Oximetry 91 92 Oxygen Delivery Method Oxygen Flow Rate 50 50 50 Fraction of Inspired Oxygen 07/08/22 02:05 07/08/22 02:12 07/08/22 02:12 Temperature Pulse Rate 70 67 Respiratory Rate 26 H 34 H Blood Pressure 108/65 Pulse Oximetry 91 91 Oxygen Delivery Method Oxygen Flow Rate 50 50 50 Fraction of Inspired Oxygen 07/08/22 03:00 07/08/22 03:00 07/08/22 03:02 Temperature Pulse Rate 62 62 Respiratory Rate 23 23 Blood Pressure 100/58 L Pulse Oximetry 90 L 91 Oxygen Delivery Method Oxygen Flow Rate 50 50 50 Fraction of Inspired Oxygen 07/08/22 04:00 07/08/22 04:00 07/08/22 04:00 Temperature 97.4 F L Pulse Rate 60 60 Respiratory Rate 23 23 Blood Pressure 93/61 93/61 Pulse Oximetry 91 91 Oxygen Delivery Method Oxygen Flow Rate 50 Fraction of Inspired Oxygen 0.88 07/08/22 04:52 07/08/22 04:00 07/08/22 01:00 Temperature Pulse Rate 69 Respiratory Rate 27 H 28 H Blood Pressure Pulse Oximetry 90 L Oxygen Delivery Method Heated High Flow Non -Rebreather Oxygen Flow Rate Fraction of Inspired Oxygen 07/08/22 05:00 07/08/22 05:00 07/08/22 06:00 Temperature Pulse Rate 73 61 Respiratory Rate 30 H 27 H Blood Pressure 100/65 Pulse Oximetry 91 92 Oxygen Delivery Method Oxygen Flow Rate 50 50 50 Fraction of Inspired Oxygen 07/08/22 06:00 07/08/22 07:00 07/08/22 07:00 Temperature Pulse Rate 66 Respiratory Rate 29 H Blood Pressure 102/63 119/64 Pulse Oximetry 90 L Oxygen Delivery Method Oxygen Flow Rate 50 Fraction of Inspired Oxygen 07/08/22 07:04 Temperature Pulse Rate 65 Respiratory Rate 28 H Blood Pressure Pulse Oximetry 91 Oxygen Delivery Method Oxygen Flow Rate Fraction of Inspired Oxygen Fraction of Inspired Oxygen 0.88 Oxygen Delivery Method Heated High Flow,Non -Rebreather Oxygen Flow Rate 50 Objective Labs 07/08/22 04:30 07/08/22 04:30 Labs: Laboratory Results - last 24 hr 07/08/22 07/08/22 04:30 04:30 WBC 10.1 RBC 4.19 L Hgb 12.4 L Hct 36.7 L MCV 87.6 MCH 29.7 MCHC 33.9 RDW 13.3 Plt Count 390 Neut % (Auto) 86.1 H Lymph % (Auto) 6.7 L [place] % (Auto) 6.4 Eos % (Auto) 0.5 L Baso % (Auto) 0.3 Neut # (Auto) 8700 H Lymph # (Auto) 700 L [place] # (Auto) 600 Eos # (Auto) 100 Baso # (Auto) 0 Sodium 132 L Potassium 4.1 Chloride 97 L Carbon Dioxide 32 BUN 17 Creatinine 0.59 L Estimated GFR > 60 BUN/Creatinine Ratio 28.8 H Glucose 129 H Calcium 8.6 Total Bilirubin 0.3 AST 34 ALT 37 Alkaline Phosphatase 56 Total Protein 6.4 Albumin 3.0 L Globulin 3.4 Albumin/Globulin Ratio 0.9 L PFSH Medical History Adenocarcinoma of right lung, stage 4 Adrenal insufficiency BPH w urinary obs/LUTS Chest wall pain following surgery COVID-19 Diabetes History of colonic polyps Hypertension Shoulder impingement Tobacco consumption Surgical History H/O hand surgery (~2013) H/O shoulder surgery (~1997) History of lung surgery History of vascular access device Family History Father Prostate cancer Social History household members: spouse Smoking Status: Former smoker alcohol intake: current substance use type: does not use Assessment & Plan Assessment & Plan narrative: 1. Respiratory failure-patient continues to be at least stable. He says he feels better and he looks better to me in person. Oxygen needs are up and down and I think a more difficult item to assess. Continue with current therapies really nothing more to add at this point. Antibiotic therapy was discontinued appropriately in my opinion. 2. Diabetes-blood sugars maybe somewhat better with the long-acting insulin. I am going to increase the long-acting insulin and continue with the coverage insulin 3. Fluids/electrolytes/renal-patient's renal function remains normal. No particular new active issues here 4. Lung cancer-will try again today to contact patient's oncologist to let him know his current status Patient I think is certainly stable not clearly worse not clearly tremendously better although subjectively is better by his report and my evaluation of him today compared to what he look like over the weekend as well. Continue try and have a discussion with patient regarding code status. Obviously if he has more complete respiratory failure that can not be treated without intubation and he is chosen not to do that which I think is appropriate he will eventually have cardiac consequences to that and performing CPR and or trying to medically treat cardiac issues that are related to the underlying respiratory failure and or impending respiratory arrest should that happen should he declined to that point would be futile. Patient is still a bit uncomfortable making himself a full do not resuscitate but obviously in the setting of medical futility that would make sense. Will continue to have this discussion, but if he were for instance to have a respiratory arrest later today he would not be intubated at his request and any attempts to resuscitate him such as CPR etcetera would be equally futile and from medical standpoint should not be attempted. Again will attempt to discuss this with patient over time to get him and his spouse on the same page. Quality VTE Deep Vein Thrombosis/Pulmonary Embolism Present on Admission: No
[2022-07-08] MEDS: ENOXAPARIN 40 MG/0.4 ML SYRINGE SUBCUT ×2 (08:21→20:39)
[2022-07-08] MEDS: INSULIN LISPRO 100 UNIT/ML 3ML VIAL SUBCUT ×3 (08:21→20:47)
[2022-07-08] MEDS: CHOLECALCIFEROL (VITAMIN D3) 1,000 UNIT TABLET 2000 UNIT PO (08:22)
[2022-07-08] MEDS: ASCORBIC ACID 500 MG TABLET 1000 MG PO (08:22)
[2022-07-08] MEDS: GABAPENTIN 300 MG CAPSULE PO ×3 (08:22→20:44)
[2022-07-08] MEDS: DEXAMETHASONE 4 MG/ML VIAL 6 MG IV (08:22)
[2022-07-08] MEDS: ASPIRIN EC 81 MG TABLET PO (08:22)
[2022-07-08] MEDS: TAMSULOSIN 0.4 MG CAPSULE PO (08:22)
[2022-07-08] MEDS: INSULIN GLARGINE 100 UNIT/ML 3ML PEN 20 UNIT SUBCUT (08:22)
[2022-07-08] MEDS: SODIUM CHLORIDE 0.9% FLUSH 10 ML IV ×2 (08:23→20:50)
--- NOTE | 2022-07-08 10:12 | P.TELICUPN_ITS ---
Subjective Subjective IF CAMERA ACTIVATED, patient seen via real-time interactive audiovisual communication: Camera activated Consent obtained for tele-mat man care: Yes Patient Location: ICU Provider location (State): [place] Other participants/roles: RN, Pharmacy Interval history: No acute events overnight. Patient continues on HFNC, currently at 80%/60L. Episodic air-hunger, anxiety. On Precedex. Continues on Decadron course. Current Medications Current Medications Medications: Home Medications sildenafil 100 mg tablet 50 - 100 mg PO DAILY PRN sexual activity #10 tabs 0 09/13/21 [Rx Confirmed 07/03/22] losartan 25 mg tablet 25 mg PO DAILY #90 tabs 10/14/21 [Rx Confirmed 07/03/22] aspirin 81 mg capsule 81 mg PO DAILY 06/17/22 [History Confirmed 07/03/22] tamsulosin 0.4 mg capsule 0.4 mg PO DAILY #90 caps 06/19/22 [Rx Confirmed 07/03/22] gabapentin 300 mg capsule 300 mg PO .COMPLEX #90 caps 06/25/22 [Rx Confirmed 07/03/22] prednisone 10 mg tablet 10 mg PO DAILY 06/25/22 [History Confirmed 07/03/22] dextromethorphan HBr 15 mg capsule 15 mg PO .HS PRN cough #60 caps 06/26/22 [Rx Confirmed 07/03/22] guaifenesin 1,200 mg tablet, extended release 12 hr 1,200 mg PO BID #60 tabs 06/26/22 [Rx Confirmed 07/03/22] hydroxyzine HCl 50 mg tablet 100 mg PO QID PRN itching #180 tabs 06/26/22 [Rx Confirmed 07/03/22] ipratropium 20 mcg-albuterol 100 mcg/actuation mist for inhalation (Combivent Respimat) 1 puff inhalation Q4H PRN cough #4 grams 06/26/22 [Rx Confirmed ] ondansetron 4 mg disintegrating tablet 4 mg PO TID #90 tabs 06/26/22 [Rx Confirmed 07/03/22] naloxone 4 mg/actuation nasal spray (Narcan) 4 mg intranasal Q3M PRN opioid overdose #2 ea 07/01/22 [Rx Confirmed 07/03/22] oxycodone 10 mg tablet 10 - 20 mg PO Q4H PRN pain #90 tabs 07/01/22 [Rx Confirm ed 07/03/22] gnmydcwibklzjlh-tsefhwr-UQ 30 mg-10 mg-100 mg/5 mL oral syrup 5 ml PO Q4H PRN cough #473 mL 07/01/22 [Rx Confirmed 07/03/22] docusate sodium 100 mg capsule 200 mg PO BID PRN opioids #180 caps 07/02/22 [Rx Confirmed 07/03/22] fentanyl 37.5 mcg/hour transdermal patch 1 patch transdermal Q72H #5 ea 07/02/22 [Rx Confirmed 07/03/22] sennosides 8.6 mg tablet (Natural Senna Laxative) 8.6 mg PO BID PRN constipation #60 tabs 07/02/22 [Rx Confirmed 07/03/22] Visit Medications (administered) Generic Name Dose Route Start Last Admin Trade Name Freq PRN Reason Stop Dose Admin Acetaminophen 650 mg 07/03/22 16:35 07/08/22 01:54 Acetaminophen 325 Mg Tablet PO 650 mg Q6H PRN Administration Fever/Mild Pain (1-3) Albuterol/Ipratropium 3 ml 07/03/22 16:52 07/07/22 18:36 Albuterol/Ipratropium 3 Ml Ampul INH 3 ml Q4H PRN Administration cough Ascorbic Acid 1,000 mg 07/06/22 10:45 07/08/22 08:22 Ascorbic Acid 500 Mg Tablet PO 1,000 mg DAILY CINDI Administration Aspirin 81 mg 07/04/22 09:00 07/08/22 08:22 Aspirin Ec 81 Mg Tablet PO 81 mg DAILY CINDI Administration Benzonatate 100 mg 07/03/22 20:42 07/08/22 06:37 Benzonatate 100 Mg Capsule PO 100 mg TID PRN Administration Cough Dexamethasone 6 mg 07/05/22 09:00 07/08/22 08:22 Dexamethasone 4 Mg/Ml Vial IV 07/13/22 05:00 6 mg DAILY CINDI Administration Docusate Sodium 200 mg 07/03/22 16:48 07/04/22 20:15 Docusate 100 Mg Capsule PO 200 mg BID PRN Administration opioids Enoxaparin Sodium 40 mg 07/03/22 21:00 07/08/22 08:21 Enoxaparin 40 Mg/0.4 Ml Syringe SUBCUT 40 mg BID CINDI Administration Fentanyl 25 mcg 07/03/22 17:00 07/06/22 16:37 Fentanyl 25 Mcg/Patch TOP 25 mcg Q72H CINDI Administration Gabapentin 300 mg 07/03/22 21:00 07/08/22 08:22 Gabapentin 300 Mg Capsule PO 300 mg TID CINDI Administration Guaifenesin/Codeine Phosphate 10 ml 07/03/22 20:42 07/08/22 01:54 Codeine/Guaifenesin Liquid 5ml Udc PO 10 ml Q6H PRN Administration Cough dexmedeTOMIDine in 0.9 % NaCL 400 mcg in 100 mls @ 4.875 mls/hr 07/04/22 21:15 07/08/22 07:44 Precedex IV 0.5 mcg/kg/hr TITRATE CINDI 12.188 mls/hr Administration Protocol 0.2 MCG/KG/HR Insulin Glargine 20 unit 07/08/22 09:00 07/08/22 08:22 Insulin Glargine 100 Unit/Ml 3ml Pen SUBCUT 20 unit DAILY CINDI Administration Insulin Human Lispro 0 unit 07/03/22 21:00 07/08/22 08:21 Insulin Lispro 100 Unit/Ml 3ml Vial SUBCUT 4 unit ACHS CINDI Administration Protocol Oxycodone HCl 10 mg 07/03/22 16:35 07/05/22 16:51 Oxycodone Ir 10 Mg Tablet PO 10 mg Q3H PRN Administration Pain, Severe (7-10) Pantoprazole Sodium 40 mg 07/05/22 07:00 07/08/22 06:[address] 40 Mg Tablet PO 40 mg 0700 [facility] Administration Sennosides 8.6 mg 07/03/22 16:48 07/07/22 21:25 Sennosides 8.6 Mg Tablet PO 8.6 mg BID PRN Administration constipation Sodium Chloride 10 ml 07/03/22 21:07 07/05/22 20:39 Sodium Chloride 0.9% Flush IV 10 ml PRN PRN Administration Flush Sodium Chloride 10 ml 07/04/22 09:00 07/08/22 08:23 Sodium Chloride 0.9% Flush IV 10 ml BID CINDI Administration Tamsulosin HCl 0.4 mg 07/04/22 09:00 07/08/22 08:22 Tamsulosin 0.4 Mg Capsule PO 0.4 mg DAILY CINDI Administration Vitamin D 2,000 unit 07/06/22 10:45 07/08/22 08:22 Cholecalciferol (Vitamin D3) 1,000 Unit Tablet PO 2,000 unit DAILY CINDI Administration Objective Ventilator Parameters: Ventilator Settings FiO2 0.83 Labs 07/08/22 04:30 07/08/22 04:30 Labs: Laboratory Results - last 24 hr 07/08/22 07/08/22 04:30 04:30 WBC 10.1 RBC 4.19 L Hgb 12.4 L Hct 36.7 L MCV 87.6 MCH 29.7 MCHC 33.9 RDW 13.3 Plt Count 390 Neut % (Auto) 86.1 H Lymph % (Auto) 6.7 L [place] % (Auto) 6.4 Eos % (Auto) 0.5 L Baso % (Auto) 0.3 Neut # (Auto) 8700 H Lymph # (Auto) 700 L [place] # (Auto) 600 Eos # (Auto) 100 Baso # (Auto) 0 Sodium 132 L Potassium 4.1 Chloride 97 L Carbon Dioxide 32 BUN 17 Creatinine 0.59 L Estimated GFR > 60 BUN/Creatinine Ratio 28.8 H Glucose 129 H Calcium 8.6 Total Bilirubin 0.3 AST 34 ALT 37 Alkaline Phosphatase 56 Total Protein 6.4 Albumin 3.0 L Globulin 3.4 Albumin/Globulin Ratio 0.9 L Exam Vital Signs (past 8 hours): - 07/08/22 03:00 07/08/22 03:00 07/08/22 03:02 Temperature Pulse Rate 62 62 Respiratory Rate 23 23 Blood Pressure 100/58 L Pulse Oximetry 90 L 91 Oxygen Delivery Method Oxygen Flow Rate 50 50 50 Fraction of Inspired Oxygen 07/08/22 04:00 07/08/22 04:00 07/08/22 04:00 Temperature 97.4 F L Pulse Rate 60 60 Respiratory Rate 23 23 Blood Pressure 93/61 93/61 Pulse Oximetry 91 91 Oxygen Delivery Method Oxygen Flow Rate 50 Fraction of Inspired Oxygen 0.88 07/08/22 04:52 07/08/22 04:00 07/08/22 05:00 Temperature Pulse Rate 69 Respiratory Rate 27 H Blood Pressure 100/65 Pulse Oximetry 90 L Oxygen Delivery Method Heated High Flow Non -Rebreather Oxygen Flow Rate 50 Fraction of Inspired Oxygen 07/08/22 05:00 07/08/22 06:00 07/08/22 06:00 Temperature Pulse Rate 73 61 Respiratory Rate 30 H 27 H Blood Pressure 102/63 Pulse Oximetry 91 92 Oxygen Delivery Method Oxygen Flow Rate 50 50 50 Fraction of Inspired Oxygen 07/08/22 07:00 07/08/22 07:00 07/08/22 07:04 Temperature Pulse Rate 66 65 Respiratory Rate 29 H 28 H Blood Pressure 119/64 Pulse Oximetry 90 L 91 Oxygen Delivery Method Oxygen Flow Rate Fraction of Inspired Oxygen 07/08/22 08:41 07/08/22 09:00 07/08/22 08:00 Temperature Pulse Rate 68 Respiratory Rate 26 H Blood Pressure 116/72 Pulse Oximetry 94 Oxygen Delivery Method Heated High Flow Non -Rebreather Oxygen Flow Rate Fraction of Inspired Oxygen 07/08/22 08:00 07/08/22 09:00 07/08/22 09:00 Temperature Pulse Rate 70 67 Respiratory Rate 30 H 31 H Blood Pressure 106/66 Pulse Oximetry 94 93 Oxygen Delivery Method Oxygen Flow Rate Fraction of Inspired Oxygen Fraction of Inspired Oxygen 0.88 Oxygen Delivery Method Heated High Flow,Non -Rebreather Oxygen Flow Rate 50 Narrative Exam Narrative: Tele-Eval pending for later when RN will be gowned for nursing duties. Quality TeleICU VTE Deep Vein Thrombosis/Pulmonary Embolism Present on Admission: No Assessment & Plan Assessment & Plan narrative: # Acute Hypoxic Respiratory Failure # COVID Infection # Stage IV Lung Ca. 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 Fentanyl Patch ongoing. PRN Oxycodone. - Continue HFNC, targeting an O2 sat >88%. Can consider BiPAP if persistently <88% - Continue Decadron to complete course - Awake proning if patient is able - DNI code status noted. - Regular diet. - Continue Lovenox Continuing goals of care discussion. At this point, beyond Decadron course, it is unclear if there are further therapeutic options for the patient while in the ICU to improve his hypoxic respiratory failure (no e/o acute bacterial infection, no recent PE, no significant pulmonary edema). He is on very significant amounts of supplemental oxygen at this time. Wuld recommend discussion with patient's Oncologist, continued supportive care and continues GOC discussion. Case discussed with Dr. Flaherty
[2022-07-08] MEDS: dexmedeTOMIDine in 0.9 % NaCL 400 MCG/100 ML PLAST..BAG 14.625 MCG IV (14:30)
--- NOTE | 2022-07-08 14:41 | CM.DPC ---
DCP Cont: Per MD, pt continues to require HHFNC and oxymask and does not seem to be making much improvements and consulted with Onc and prognosis still guarded. MD continues to have Goals of Care/advanced directive discussions with pt daily. Per RN, pt very anxious and not sleeping much and has not made much improvements today. Pt has had supportive family visiting bedside daily. Plan: SW to follow closely for pt's ongoing care for COVID+ and pt's stage IV lung CA complexities likely making pt's recovery challenging. SW to follow closely for needs as pt's prognosis guarded. Zully Cruz, JEFERSON
--- NOTE | 2022-07-08 15:02 | PC.NURSE ---
Day shift: Pt sitting comfortably in bed. Ate 25% of breakfast, stated after breakfast he wanted to rest. Pt requested BiPAP. RT set up BiPAP for pt and this RN titrated Precedex gtt for comfort (see MAR). Pt able to tolerate BiPAP (settings 10/5 FiO2 60%, 15 breaths) saturations 93%-98% from approximately 1145 to 1345 when he was transitioned back to heated high flow 55L 80% FiO2. Pt's saturation 98%-99%. Pt requested to have O2 lowered d/t oral dryness. RT assessed and heated high flow settings 55L 75% FiO2 at 1450. Pt saturation 93%-96% currently.
--- NOTE | 2022-07-08 20:47 | PM.ICURNDS ---
- :: This patient was seen via real time interactive two-way audiovisual telecommunication. Pt remains on HFNC , fio2 remains high, limited code status remians in place, he is awake and conversive otherwise. melatonin ordered qhs
[2022-07-08] MEDS: MELATONIN 3 MG TABLET 9 MG PO (23:12)
[2022-07-09] VITALS (42 sets, daily range): BP systolic 77–135; BP diastolic 51–82; PULSE 64–97; RESP 15–49; TEMP 30–37.2; O2SAT 85–95
[2022-07-09] MEDS: ALBUTEROL/IPRATROPIUM 3 ML AMPUL INH (01:33)
[2022-07-09] MEDS: MORPHINE 4 MG/ML INJ IV (01:57)
[2022-07-09] MEDS: dexmedeTOMIDine in 0.9 % NaCL 400 MCG/100 ML PLAST..BAG 17.063 MCG IV ×2 (03:57→08:50)
[2022-07-09 04:06] LABS: Add Manual Diff / Slide Review NO; Basophils Absolute Auto 0 /uL (0-100); Basophils Percent Auto 0.2 % (0-2); Eosinophils Absolute Auto 100 /uL (0-450); Hematocrit 37.6 % (41-53); Hemoglobin 12.6 g/dL (13.5-17.5); Lymphocytes Absolute Auto 700 /uL (1100-4500); Lymphocytes Percent Auto 6.5 % (25-40); Mean Corpuscular HGB Conc 33.5 % (30-36); Mean Corpuscular Hemoglobin 29.4 PG (26-34); Mean Corpuscular Volume 87.7 fL (80-100); Monocytes Absolute Auto 800 /uL (0-900); Monocytes Percent Auto 8.2 % (3-14); Neutrophils Absolute Auto 8500 /uL (1500-7000); Neutrophils Percent Auto 84.1 % (50-75); Platelet Count 399 X10^3/uL (150-400); Red Blood Cell Count 4.29 X10^6/uL (4.5-5.9); Red Cell Distribution Width 13.7 % (11.6-14.8); White Blood Cell Count 10.1 X10^3/uL (4.5-11.0)
[2022-07-09 04:11] LABS: Alanine Aminotransferase 34 IU/L (<50); Albumin Globulin Ratio 0.9 (1.0-2.8); Alkaline Phosphatase 56 U/L (38-126); Aspartate Aminotransferase 26 IU/L (17-59); BUN Creatinine Ratio 31.6 (6-22); Bilirubin Total 0.4 mg/dL (0.2-1.3); Blood Urea Nitrogen 18 mg/dL (9-20); Calcium 8.2 mg/dL (8.4-10.2); Carbon Dioxide 29 mmol/L (22-32); Chloride 99 mmol/L (98-107); Estimated Glomerular Filt Rate > 60 mL/min (>60); Globulin 3.3 g/dL (1.7-4.1); Glucose 124 mg/dL (80-110); HEMOLYSIS < 15 (0-50); Potassium 3.8 mmol/L (3.4-5.1); Sodium 133 mmol/L (137-145); Total Protein 6.3 g/dL (6.3-8.2)
--- NOTE | 2022-07-09 06:49 | P.PN_ITS ---
Subjective Subjective Date Patient Seen: 07/09/22 Time Patient Seen: 06:49 Interval history: Patient continues to be up and down requiring a bit more respiratory support at times. Has been placed back on BiPAP at times. Seemingly tolerating this a bit better than at other times in the past. No dramatic improvement nor dramatic decline in clinical status Lab work remains essentially unremarkable. Electrolytes renal function CBC okay. Blood sugars a bit better perhaps due to the long-acting insulin. Still peaking over 250 (patient with an increased oral intake with increased appetite perhaps partly responsible) Patient's anxiety with episodic panic attacks is still his biggest complaint. Looking for something in addition to the Precedex which does not seem to be super helpful and he is sort of maxed out the doses he is able to tolerate with that Exam Vital Signs (past 8 hours): - 07/08/22 23:00 07/08/22 23:00 07/09/22 00:01 Temperature Pulse Rate 71 Respiratory Rate 35 H Blood Pressure 104/64 Pulse Oximetry 91 Oxygen Delivery Method High Flow Nasal Cannula Non -Rebreather Oxygen Flow Rate 55 Fraction of Inspired Oxygen 07/09/22 00:00 07/09/22 00:00 07/09/22 00:33 Temperature 98.7 F Pulse Rate 65 64 Respiratory Rate 23 28 H Blood Pressure 93/57 L Pulse Oximetry 90 L 91 Oxygen Delivery Method Oxygen Flow Rate 50 Fraction of Inspired Oxygen 07/09/22 01:33 07/09/22 01:00 07/09/22 01:00 Temperature Pulse Rate 79 65 Respiratory Rate 32 H 24 Blood Pressure 88/59 L Pulse Oximetry 85 L 89 L Oxygen Delivery Method High Flow Nasal Cannula Oxygen Flow Rate 55 Fraction of Inspired Oxygen 75 07/09/22 01:27 07/09/22 01:27 07/09/22 05:00 Temperature Pulse Rate 75 Respiratory Rate 35 H Blood Pressure 110/65 Pulse Oximetry 87 L Oxygen Delivery Method High Flow Nasal Cannula Oxygen Flow Rate 55 Fraction of Inspired Oxygen 07/09/22 02:00 07/09/22 02:00 07/09/22 02:14 Temperature Pulse Rate 85 Respiratory Rate 29 H Blood Pressure 93/58 L Pulse Oximetry 88 L Oxygen Delivery Method Oxygen Flow Rate Fraction of Inspired Oxygen 75 07/09/22 02:30 07/09/22 02:30 07/09/22 03:00 Temperature Pulse Rate 79 Respiratory Rate 31 H Blood Pressure 94/57 L 89/59 L Pulse Oximetry 91 Oxygen Delivery Method Oxygen Flow Rate Fraction of Inspired Oxygen 07/09/22 03:00 07/09/22 03:49 07/09/22 03:49 Temperature 98.6 F Pulse Rate 76 76 Respiratory Rate 26 H 29 H Blood Pressure 101/62 Pulse Oximetry 90 L 92 Oxygen Delivery Method Oxygen Flow Rate Fraction of Inspired Oxygen 07/09/22 04:00 07/09/22 04:00 07/09/22 04:20 Temperature Pulse Rate 71 81 Respiratory Rate 26 H 32 H Blood Pressure 97/59 L Pulse Oximetry 91 91 Oxygen Delivery Method Oxygen Flow Rate Fraction of Inspired Oxygen 07/09/22 05:00 07/09/22 05:00 07/09/22 05:22 Temperature Pulse Rate 74 Respiratory Rate 28 H Blood Pressure 105/61 106/68 Pulse Oximetry 90 L Oxygen Delivery Method Oxygen Flow Rate 55 Fraction of Inspired Oxygen 75 07/09/22 05:25 07/09/22 05:25 07/09/22 06:00 Temperature Pulse Rate 75 Respiratory Rate 28 H Blood Pressure 106/68 98/66 Pulse Oximetry 90 L Oxygen Delivery Method Oxygen Flow Rate Fraction of Inspired Oxygen 07/09/22 06:00 Temperature Pulse Rate 75 Respiratory Rate 31 H Blood Pressure Pulse Oximetry 92 Oxygen Delivery Method Oxygen Flow Rate 55 Fraction of Inspired Oxygen Fraction of Inspired Oxygen 75 SaO2/FiO2 Ratio 113 Oxygen Delivery Method High Flow Nasal Cannula Oxygen Flow Rate 55 Objective Labs 07/09/22 03:54 07/09/22 03:54 Labs: Laboratory Results - last 24 hr 07/09/22 07/09/22 03:54 03:54 WBC 10.1 RBC 4.29 L Hgb 12.6 L Hct 37.6 L MCV 87.7 MCH 29.4 MCHC 33.5 RDW 13.7 Plt Count 399 Neut % (Auto) 84.1 H Lymph % (Auto) 6.5 L [place] % (Auto) 8.2 Eos % (Auto) 1.0 L Baso % (Auto) 0.2 Neut # (Auto) 8500 H Lymph # (Auto) 700 L [place] # (Auto) 800 Eos # (Auto) 100 Baso # (Auto) 0 Sodium 133 L Potassium 3.8 Chloride 99 Carbon Dioxide 29 BUN 18 Creatinine 0.57 L Estimated GFR > 60 BUN/Creatinine Ratio 31.6 H Glucose 124 H Calcium 8.2 L Total Bilirubin 0.4 AST 26 ALT 34 Alkaline Phosphatase 56 Total Protein 6.3 Albumin 3.0 L Globulin 3.3 Albumin/Globulin Ratio 0.9 L PFSH Medical History Adenocarcinoma of right lung, stage 4 Adrenal insufficiency BPH w urinary obs/LUTS Chest wall pain following surgery COVID-19 Diabetes History of colonic polyps Hypertension Shoulder impingement Tobacco consumption Surgical History H/O hand surgery (~2013) H/O shoulder surgery (~1997) History of lung surgery History of vascular access device Family History Father Prostate cancer Social History household members: spouse Smoking Status: Former smoker alcohol intake: current substance use type: does not use Assessment & Plan Assessment & Plan narrative: 1. Respiratory failure-patient continues to be at least stable. He says he feels better and he looks better to me in person. Oxygen needs are up and down and I think a more difficult item to assess. Continue with current therapies really nothing more to add at this point. No change for today. 2. Diabetes-blood sugars maybe somewhat better with the increase in long-acting insulin. No change for today. Patient with increased oral intake over the last 48-72 hours probably contributing to a bit of struggle controlling his blood sugar. 3. Fluids/electrolytes/renal-patient's renal function remains normal. No particular new active issues here 4. Lung cancer-as noted yesterday I did speak with his oncologist Dr. Pelayo, who still believe patient would be a candidate for standard therapy as noted. He would like to see if he responds his tumor response to this treatment. He was abandoned thoughts about re obtaining tissue sample for genetic testing to allow for a tyrosine kinase based treatments at this point given his clinical status h e is not going to be appropriate for that for an extremely long time if ever. Oncology feels like there maybe up to a 30% chance of response. However Oncology fully aware patient will likely not be a candidate for any chemotherapeutic agent for several weeks following his recovery from COVID, assu venancio he does recover from this particular infection hospitalization. For the moment any treatment is on hold and we are unable to make any plans to restart treatment. Oncology concurs with this opinion given his current clinical status. 5. Anxiety-continue with Precedex but I will add some intermittent bolusing lorazepam had 0.5 mg to start with may increase to mg cautiously to be used sparingly intermittently for his severe anxiety/panic attacks. I am still not willing to prescribe anything on an ongoing daily basis as an anxiolytic beyond the Precedex etcetera Patient continues to be relatively stable. Not clearly worse or clearly improved although some minor subjective evidence of improvement Quality VTE Deep Vein Thrombosis/Pulmonary Embolism Present on Admission: No
[2022-07-09] MEDS: BENZONATATE 100 MG CAPSULE PO ×2 (07:45→21:12)
[2022-07-09] MEDS: PANTOPRAZOLE DR 40 MG TABLET PO (07:45)
[2022-07-09] MEDS: CODEINE/GUAIFENESIN LIQUID 5ML UDC 10 ML PO ×2 (07:45→21:13)
[2022-07-09] MEDS: ASCORBIC ACID 500 MG TABLET 1000 MG PO (08:39)
[2022-07-09] MEDS: ASPIRIN EC 81 MG TABLET PO (08:39)
[2022-07-09] MEDS: ENOXAPARIN 40 MG/0.4 ML SYRINGE SUBCUT ×2 (08:39→21:13)
[2022-07-09] MEDS: DEXAMETHASONE 4 MG/ML VIAL 6 MG IV (08:39)
[2022-07-09] MEDS: TAMSULOSIN 0.4 MG CAPSULE PO (08:39)
[2022-07-09] MEDS: GABAPENTIN 300 MG CAPSULE PO ×2 (08:39→21:12)
[2022-07-09] MEDS: CHOLECALCIFEROL (VITAMIN D3) 1,000 UNIT TABLET 2000 UNIT PO (08:39)
[2022-07-09] MEDS: INSULIN GLARGINE 100 UNIT/ML 3ML PEN 20 UNIT SUBCUT (08:52)
[2022-07-09] MEDS: SODIUM CHLORIDE 0.9% FLUSH 10 ML IV ×2 (08:52→21:13)
[2022-07-09] MEDS: ACETAMINOPHEN 325 MG TABLET 650 MG PO ×2 (09:33→21:12)
--- NOTE | 2022-07-09 09:33 | P.TELICUPN_ITS ---
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 Patient Location: ICU Current Medications Current Medications Medications: Home Medications sildenafil 100 mg tablet 50 - 100 mg PO DAILY PRN sexual activity #10 tabs 09/13/21 [Rx Confirmed 07/03/22] losartan 25 mg tablet 25 mg PO DAILY #90 tabs 10/14/21 [Rx Confirmed 07/03/22] aspirin 81 mg capsule 81 mg PO DAILY 06/17/22 [History Confirmed 07/03/22] tamsulosin 0.4 mg capsule 0.4 mg PO DAILY #90 caps 06/19/22 [Rx Confirmed 0 07/03/22] gabapentin 300 mg capsule 300 mg PO .COMPLEX #90 caps 06/25/22 [Rx Confirmed 07/03/22] prednisone 10 mg tablet 10 mg PO DAILY 06/25/22 [History Confirmed 07/03/22] dextromethorphan HBr 15 mg capsule 15 mg PO .HS PRN cough #60 caps 06/26/22 [Rx Confirmed 07/03/22] guaifenesin 1,200 mg tablet, extended release 12 hr 1,200 mg PO BID #60 tabs 06/26/22 [Rx Confirmed 07/03/22] hydroxyzine HCl 50 mg tablet 100 mg PO QID PRN itching #180 tabs 06/26/22 [Rx Confirmed 07/03/22] ipratropium 20 mcg-albuterol 100 mcg/actuation mist for inhalation (Combivent Respimat) 1 puff inhalation Q4H PRN cough #4 grams 06/26/22 [Rx Confirmed 07/03/22] ondansetron 4 mg disintegrating tablet 4 mg PO TID #90 tabs 06/26/22 [Rx Confirmed 07/03/22] naloxone 4 mg/actuation nasal spray (Narcan) 4 mg intranasal Q3M PRN opioid overdose #2 ea 07/01/22 [Rx Confirmed 07/03/22] oxycodone 10 mg tablet 10 - 20 mg PO Q4H PRN pain #90 tabs 07/01/22 [Rx Confirmed 07/03/22] efnnqjhelebimgk-rgaejbn-MT 30 mg-10 mg-100 mg/5 mL oral syrup 5 ml PO Q4H PRN cough #473 mL 07/01/22 [Rx Confirmed 07/03/22] docusate sodium 100 mg capsule 200 mg PO BID PRN opioids #180 caps 07/02/22 [Rx Confirmed 07/03/22] fentanyl 37.5 mcg/hour transdermal patch 1 patch transdermal Q72H #5 ea 07/02/22 [Rx Confirmed 07/03/22] sennosides 8.6 mg tablet (Natural Senna Laxative) 8.6 mg PO BID PRN constipation #60 tabs 07/02/22 [Rx Confirmed 07/03/22] Visit Medications (administered) Generic Name Dose Route Start Last Admin Trade Name Freq PRN Reason Stop Dose Admin Acetaminophen 650 mg 07/03/22 16:35 07/09/22 09:33 Acetaminophen 325 Mg Tablet PO 650 mg Q6H PRN Administration Fever/Mild Pain (1-3) Albuterol/Ipratropium 3 ml 07/03/22 16:52 07/09/22 01:33 Albuterol/Ipratropium 3 Ml Ampul INH 3 ml Q4H PRN Administration cough Ascorbic Acid 1,000 mg 07/06/22 10:45 07/09/22 08:39 Ascorbic Acid 500 Mg Tablet PO 1,000 mg DAILY CINDI Administration Aspirin 81 mg 07/04/22 09:00 07/09/22 08:39 Aspirin Ec 81 Mg Tablet PO 81 mg DAILY CINDI Administration Benzonatate 100 mg 07/03/22 20:42 07/09/22 07:45 Benzonatate 100 Mg Capsule PO 100 mg TID PRN Administration Cough Dexamethasone 6 mg 07/05/22 09:00 07/09/22 08:39 Dexamethasone 4 Mg/Ml Vial IV 07/13/22 05:00 6 mg DAILY CINDI Administration Docusate Sodium 200 mg 07/03/22 16:48 07/04/22 20:15 Docusate 100 Mg Capsule PO 200 mg BID PRN Administration opioids Enoxaparin Sodium 40 mg 07/03/22 21:00 07/09/22 08:39 Enoxaparin 40 Mg/0.4 Ml Syringe SUBCUT 40 mg BID CINDI Administration Fentanyl 25 mcg 07/03/22 17:00 07/06/22 16:37 Fentanyl 25 Mcg/Patch TOP 25 mcg Q72H CINDI Administration Gabapentin 300 mg 07/03/22 21:00 07/09/22 08:39 Gabapentin 300 Mg Capsule PO 300 mg TID CINDI Administration Guaifenesin/Codeine Phosphate 10 ml 07/03/22 20:42 07/09/22 07:45 Codeine/Guaifenesin Liquid 5ml Udc PO 10 ml Q6H PRN Administration Cough dexmedeTOMIDine in 0.9 % NaCL 400 mcg in 100 mls @ 4.875 mls/hr 07/04/22 21:15 07/09/22 08:50 Precedex IV 0.7 mcg/kg/hr TITRATE CINDI 17.063 mls/hr Administration Protocol 0.2 MCG/KG/HR Insulin Glargine 20 unit 07/08/22 09:00 07/09/22 08:52 Insulin Glargine 100 Unit/Ml 3ml Pen SUBCUT 20 unit DAILY CINDI Administration Insulin Human Lispro 0 unit 07/03/22 21:00 07/09/22 07:52 Insulin Lispro 100 Unit/Ml 3ml Vial SUBCUT Not Given ACHS CINDI Protocol Melatonin 9 mg 07/08/22 21:00 07/08/22 23:12 Melatonin 3 Mg Tablet PO 9 mg BEDTIME CINDI Administration Morphine Sulfate 4 mg 07/08/22 06:47 07/09/22 01:57 Morphine 4 Mg/Ml Inj IV 4 mg Q3H PRN Administration Pain, Severe (7-10) Oxycodone HCl 10 mg 07/03/22 16:35 07/05/22 16:51 Oxycodone Ir 10 Mg Tablet PO 10 mg Q3H PRN Administration Pain, Severe (7-10) Pantoprazole Sodium 40 mg 07/05/22 07:00 07/09/22 07:[address] 40 Mg Tablet PO 40 mg 0700 CINDI Administration Sennosides 8.6 mg 07/03/22 16:48 07/07/22 21:25 Sennosides 8.6 Mg Tablet PO 8.6 mg BID PRN Administration constipation Sodium Chloride 10 ml 07/03/22 21:07 07/05/22 20:39 Sodium Chloride 0.9% Flush IV 10 ml PRN PRN Administration Flush Sodium Chloride 10 ml 07/04/22 09:00 07/09/22 08:52 Sodium Chloride 0.9% Flush IV 10 ml BID CINDI Administration Tamsulosin HCl 0.4 mg 07/04/22 09:00 07/09/22 08:39 Tamsulosin 0.4 Mg Capsule PO 0.4 mg DAILY CINDI Administration Vitamin D 2,000 unit 07/06/22 10:45 07/09/22 08:39 Cholecalciferol (Vitamin D3) 1,000 Unit Tablet PO 2,000 unit DAILY CINDI Administration Objective Ventilator Parameters: Ventilator Settings FiO2 70 Labs 07/09/22 03:54 07/09/22 03:54 Labs: Laboratory Results - last 24 hr 07/09/22 07/09/22 03:54 03:54 WBC 10.1 RBC 4.29 L Hgb 12.6 L Hct 37.6 L MCV 87.7 MCH 29.4 MCHC 33.5 RDW 13.7 Plt Count 399 Neut % (Auto) 84.1 H Lymph % (Auto) 6.5 L [place] % (Auto) 8.2 Eos % (Auto) 1.0 L Baso % (Auto) 0.2 Neut # (Auto) 8500 H Lymph # (Auto) 700 L [place] # (Auto) 800 Eos # (Auto) 100 Baso # (Auto) 0 Sodium 133 L Potassium 3.8 Chloride 99 Carbon Dioxide 29 BUN 18 Creatinine 0.57 L Estimated GFR > 60 BUN/Creatinine Ratio 31.6 H Glucose 124 H Calcium 8.2 L Total Bilirubin 0.4 AST 26 ALT 34 Alkaline Phosphatase 56 Total Protein 6.3 Albumin 3.0 L Globulin 3.3 Albumin/Globulin Ratio 0.9 L Exam Vital Signs (past 8 hours): - 07/09/22 05:00 07/09/22 02:00 07/09/22 02:00 Temperature Pulse Rate 85 Respiratory Rate 29 H Blood Pressure 93/58 L Pulse Oximetry 88 L Oxygen Delivery Method High Flow Nasal Cannula Oxygen Flow Rate Fraction of Inspired Oxygen 07/09/22 02:14 07/09/22 02:30 07/09/22 02:30 Temperature Pulse Rate 79 Respiratory Rate 31 H Blood Pressure 94/57 L Pulse Oximetry 91 Oxygen Delivery Method Oxygen Flow Rate Fraction of Inspired Oxygen 75 07/09/22 03:00 07/09/22 03:00 07/09/22 03:49 Temperature Pulse Rate 76 76 Respiratory Rate 26 H 29 H Blood Pressure 89/59 L Pulse Oximetry 90 L 92 Oxygen Delivery Method Oxygen Flow Rate Fraction of Inspired Oxygen 07/09/22 03:49 07/09/22 04:00 07/09/22 04:00 Temperature 98.6 F Pulse Rate 71 Respiratory Rate 26 H Blood Pressure 101/62 97/59 L Pulse Oximetry 91 Oxygen Delivery Method Oxygen Flow Rate Fraction of Inspired Oxygen 07/09/22 04:20 07/09/22 05:00 07/09/22 05:00 Temperature Pulse Rate 81 74 Respiratory Rate 32 H 28 H Blood Pressure 105/61 Pulse Oximetry 91 90 L Oxygen Delivery Method Oxygen Flow Rate 55 Fraction of Inspired Oxygen 07/09/22 05:22 07/09/22 05:25 07/09/22 05:25 Temperature Pulse Rate 75 Respiratory Rate 28 H Blood Pressure 106/68 106/68 Pulse Oximetry 90 L Oxygen Delivery Method Oxygen Flow Rate Fraction of Inspired Oxygen 75 07/09/22 06:00 07/09/22 06:00 07/09/22 07:00 Temperature Pulse Rate 75 88 Respiratory Rate 31 H 34 H Blood Pressure 98/66 Pulse Oximetry 92 90 L Oxygen Delivery Method Oxygen Flow Rate 55 Fraction of Inspired Oxygen 07/09/22 07:00 07/09/22 07:01 07/09/22 07:01 Temperature Pulse Rate 84 83 Respiratory Rate 40 H 47 H Blood Pressure 127/66 Pulse Oximetry 89 L 89 L Oxygen Delivery Method Oxygen Flow Rate Fraction of Inspired Oxygen 07/09/22 08:00 07/09/22 08:00 07/09/22 09:00 Temperature 98 F Pulse Rate 80 Respiratory Rate 33 H Blood Pressure 99/62 Pulse Oximetry 87 L Oxygen Delivery Method High Flow Nasal Cannula Oxygen Flow Rate Fraction of Inspired Oxygen Fraction of Inspired Oxygen 75 SaO2/FiO2 Ratio 113 Oxygen Delivery Method High Flow Nasal Cannula Oxygen Flow Rate 55 Quality TeleICU VTE Deep Vein Thrombosis/Pulmonary Embolism Present on Admission: No Assessment & Plan Assessment & Plan narrative: # Acute Hypoxic Respiratory Failure # COVID Infection # Stage IV Lung Ca. # Mild Hyponatremia # On chronic Prednisone - Continue Precedex for management of anxiety/agitation. PRN benzos for panic attack. Fentanyl Patch ongoing. PRN Oxycodone. - Cautious with benzos as respiratory depression will be poorly tolerated given his significant oxygen requirements. - Continue HFNC. NRB on top. Targeting an O2 sat >88%. Can consider BiPAP if persistently <88% - Continue Decadron to complete course - Awake proning if patient is able - DNI code status noted. - Regular diet. - Continue Lovenox - Insulin ongoing Patient clinically unchanged today. Continue to balance management of his comfort, anxiety with avoidance of exacerbating his respiratory failure. Patient's Oncologist aware of situation, if able to recover from this hospita lization, there are plans for further treatment of his cancer with a possible 30% chance of response per Onc.
[2022-07-09] MEDS: INSULIN LISPRO 100 UNIT/ML 3ML VIAL SUBCUT ×2 (12:20→17:03)
[2022-07-09] MEDS: LORazepam 2 MG/ML INJ 0.5 MG IV (12:24)
[2022-07-09] MEDS: dexmedeTOMIDine in 0.9 % NaCL 400 MCG/100 ML PLAST..BAG 12.188 MCG IV ×2 (14:38→21:40)
[2022-07-09] MEDS: fentaNYL 25 MCG/PATCH TOP (17:02)
[2022-07-09] MEDS: MELATONIN 3 MG TABLET 9 MG PO (21:12)
[2022-07-09] MEDS: LORazepam 2 MG/ML INJ 1 MG IV (21:13)
[2022-07-10] VITALS (64 sets, daily range): BP systolic 90–170; BP diastolic 56–86; PULSE 2–143; RESP 26–95; TEMP 36.2–36.6; O2SAT 80–99
[2022-07-10] MEDS: MORPHINE 4 MG/ML INJ IV ×2 (01:30→07:49)
[2022-07-10] MEDS: CODEINE/GUAIFENESIN LIQUID 5ML UDC 10 ML PO ×2 (01:48→15:29)
[2022-07-10] MEDS: LORazepam 2 MG/ML INJ 0.5 MG IV ×2 (01:48→04:52)
--- NOTE | 2022-07-10 06:22 | PC.NURSE ---
Ship Joiner Note-Patient has been on HHF FIO2 increased to 95% mid-shift for SpO2 sustained <85%, remains 50L with NRB. Continues to have panic attacks Ativan 0.5-1mg IVP prn is effective, Precedex gtt titrated 0.1-0.5mcg/kg/hr.
[2022-07-10] MEDS: dexmedeTOMIDine in 0.9 % NaCL 400 MCG/100 ML PLAST..BAG IV (07:50)
--- NOTE | 2022-07-10 08:26 | P.PN_ITS ---
Subjective Subjective Date Patient Seen: 07/10/22 Time Patient Seen: 08:26 Interval history: Patient seems to have declined in the last 24 hours. Now really has maximized all noninvasive options for oxygen therapy. He is declining he is BiPAP and that is not been exactly clear that that has been overly helpful for patient. Still having anxiety attacks at times gets dyspneic gets tachycardic gets tachypneic as part of that tends to pull off his non-rebreather mask which leads to further hypoxia and dyspnea which amplifies the whole process However even at best his oxygen saturation is about 85-87% with maximum high- flow plus non-rebreather etcetera Lorazepam seems to have been helpful some doses morphine have not really done anything beneficial Does continue on the Precedex as well Exam Vital Signs (past 8 hours): - 07/10/22 00:30 07/10/22 00:30 07/10/22 00:56 Temperature Pulse Rate 77 100 H Respiratory Rate 32 H 57 H Blood Pressure 111/64 Pulse Oximetry 86 L 88 L Oxygen Delivery Method Oxygen Flow Rate 50 50 50 07/10/22 00:30 07/10/22 01:00 07/10/22 01:00 Temperature Pulse Rate 102 H Respiratory Rate 46 H Blood Pressure 115/63 Pulse Oximetry 89 L Oxygen Delivery Method Heated High Flow Non -Rebreather Oxygen Flow Rate 50 50 07/10/22 01:30 07/10/22 01:30 07/10/22 02:00 Temperature Pulse Rate 118 H 107 H Respiratory Rate 48 H 38 H Blood Pressure 131/77 Pulse Oximetry 82 L 86 L Oxygen Delivery Method Oxygen Flow Rate 50 50 60 07/10/22 02:00 07/10/22 02:04 07/10/22 02:30 Temperature Pulse Rate 108 H 96 H Respiratory Rate 39 H 33 H Blood Pressure 106/66 Pulse Oximetry 85 L 91 Oxygen Delivery Method Oxygen Flow Rate 60 60 07/10/22 02:30 07/10/22 03:00 07/10/22 03:00 Temperature Pulse Rate 95 H Respiratory Rate 33 H Blood Pressure 102/63 104/64 Pulse Oximetry 90 L Oxygen Delivery Method Oxygen Flow Rate 07/10/22 03:04 07/10/22 04:20 07/10/22 03:30 Temperature Pulse Rate 101 H Respiratory Rate 45 H Blood Pressure 119/66 Pulse Oximetry 94 Oxygen Delivery Method Heated High Flow Non -Rebreather Oxygen Flow Rate 07/10/22 03:30 07/10/22 04:00 07/10/22 04:00 Temperature Pulse Rate 96 H 86 Respiratory Rate 42 H 30 H Blood Pressure 103/63 Pulse Oximetry 87 L 92 Oxygen Delivery Method Oxygen Flow Rate 07/10/22 04:28 07/10/22 04:30 07/10/22 04:30 Temperature 97.8 F Pulse Rate 92 H 91 H Respiratory Rate 39 H 64 H Blood Pressure 111/68 Pulse Oximetry 95 95 Oxygen Delivery Method Oxygen Flow Rate 50 50 07/10/22 05:00 07/10/22 05:00 07/10/22 05:15 Temperature Pulse Rate 89 87 Respiratory Rate 47 H 56 H Blood Pressure 112/63 Pulse Oximetry 90 L 88 L Oxygen Delivery Method Oxygen Flow Rate 50 50 50 07/10/22 02:00 07/10/22 04:00 07/10/22 05:30 Temperature Pulse Rate 90 90 Respiratory Rate 51 H Blood Pressure Pulse Oximetry 93 87 L Oxygen Delivery Method Oxygen Flow Rate 50 07/10/22 05:30 07/10/22 06:00 07/10/22 06:00 Temperature Pulse Rate 88 Respiratory Rate 27 H Blood Pressure 113/65 91/59 L Pulse Oximetry 90 L Oxygen Delivery Method Oxygen Flow Rate 50 50 50 07/10/22 06:23 07/10/22 07:21 07/10/22 06:30 Temperature Pulse Rate 90 132 H Respiratory Rate 59 H 36 H Blood Pressure 119/69 Pulse Oximetry 90 L 87 L Oxygen Delivery Method Oxygen Flow Rate 50 07/10/22 06:30 07/10/22 07:00 07/10/22 07:00 Temperature Pulse Rate 93 H 102 H Respiratory Rate 54 H 79 H Blood Pressure 132/70 Pulse Oximetry 90 L 85 L Oxygen Delivery Method Oxygen Flow Rate Fraction of Inspired Oxygen 75 SaO2/FiO2 Ratio 113 Oxygen Delivery Method Heated High Flow,Non -Rebreather Oxygen Flow Rate 50 Objective Labs 07/09/22 03:54 07/09/22 03:54 PFSH Medical History Adenocarcinoma of right lung, stage 4 Adrenal insufficiency BPH w urinary obs/LUTS Chest wall pain following surgery COVID-19 Diabetes History of colonic polyps Hypertension Shoulder impingement Tobacco consumption Surgical History H/O hand surgery (~2013) H/O shoulder surgery (~1997) History of lung surgery History of vascular access device Family History Father Prostate cancer Social History household members: spouse Smoking Status: Former smoker alcohol intake: current substance use type: does not use Assessment & Plan Assessment & Plan narrative: 1. Respiratory failure-patient is declining I think. Unfortunately we have re ached maximum therapies including the oxygen. Everything else is continued without change. No other clinical features to suggest some other undiagnosed issues such as secondary pneumonia etcetera. Continue with current therapies and continue to use medications to help with his sense of dyspnea, even at the expense of his respiratory status as noted below 2. Diabetes-blood sugars definitely better. Continue current insulin without change 3. Fluids/electrolytes/renal-plan to recheck numbers with lab work tomorrow 4. Lung cancer-as noted previously, therapy on hold until has recovered from this illness to some extent 5. Goals of care-at this point I discussed with patient and spouse that our primary goal of care hears to keep him comfortable. I tried to be very clear that keeping him comfortable may only be possible at the expense of making his respiratory status worse in other words suppressing his breathing which may actually hasten his demise but that we will focus on keeping him comfortable. Both verified that that is the goal of treatment at this point. I think this is exemplified in his desire to become a do not intubate followed by his desire to avoid using BiPAP in the last 24 hours etcetera. I have discussed this with nursing staff and again if we need to medicate him with probably primarily lorazepam in addition to everything else in effort to help him with anxiety and with his sense of dyspnea even if that is suppresses his respiratory drive to some extent and makes his respiratory status worse that would be a inappropriate use of that medication in that setting. Patient is declining and I think unlikely to survive this hospitalization but we will continue with aggressive therapies as above Quality VTE Deep Vein Thrombosis/Pulmonary Embolism Present on Admission: No
[2022-07-10] MEDS: ENOXAPARIN 40 MG/0.4 ML SYRINGE SUBCUT ×2 (09:00→21:09)
[2022-07-10] MEDS: DEXAMETHASONE 4 MG/ML VIAL 6 MG IV (09:54)
[2022-07-10] MEDS: INSULIN GLARGINE 100 UNIT/ML 3ML PEN 20 UNIT SUBCUT (09:55)
--- NOTE | 2022-07-10 13:28 | CM.DPNOTE ---
DCP Note Patient currently DNR/DNI Introduced self to spouse Tahira this morning. Patient having a particularly bad day according to spouse with multiple panic attacks and episodes of hyperventilating. Patient's spirits appear to improve with the arrival of spouse Tahira admits to this CORPORATE DEVELOPMENT ASSOCIATE that she does not expect patient to survive this hospitalization and has asked family and friends to visit patient at bedside if allowed Briefly discussed Hospice resource and spouse surprised, states she didn't know that was an option. Explained that it may not be an option r/t patient's acuity, however, this CORPORATE DEVELOPMENT ASSOCIATE could research this as an option if it is important to patient and family. Urged spouse to consider an election for complete comfort measures while patient is in the hospital, which may be an increase in medication and decrease in O2 Explained to spouse that a conversation about clinical course and what to expect if patient transitions to full comfort care would need to be conducted with physician and/supervisor rubber covering as that would not be within this CORPORATE DEVELOPMENT ASSOCIATE's scope, spouse states understanding Dr Flaherty's prog note indicates that patient's clinical course is reviewed w/patient and spouse daily; focus on comfort seems to be the goal today and at the same time, oxygen continues at high flow and rate but with medication assist available for air hunger and anxiety. prognosis remains guarded Following closely and available to support spouse, family, and staff. In addition, available to assist w/coordination of DCP if patient survives this hospitalization JW
[2022-07-10] MEDS: dexmedeTOMIDine in 0.9 % NaCL 400 MCG/100 ML PLAST..BAG 17.063 MCG IV ×2 (13:29→18:42)
[2022-07-10] MEDS: BENZONATATE 100 MG CAPSULE PO (14:36)
[2022-07-10] MEDS: GABAPENTIN 300 MG CAPSULE PO ×2 (15:34→21:08)
[2022-07-10] MEDS: MELATONIN 3 MG TABLET 9 MG PO (21:09)
[2022-07-10] MEDS: LORazepam 2 MG/ML INJ 1 MG IV (21:10)
[2022-07-10] MEDS: SODIUM CHLORIDE 0.9% FLUSH 10 ML IV (21:54)
[2022-07-11] VITALS (52 sets, daily range): BP systolic 83–150; BP diastolic 57–92; PULSE 66–128; RESP 22–49; TEMP 36.3–37.4; O2SAT 80–98
[2022-07-11] MEDS: dexmedeTOMIDine in 0.9 % NaCL 400 MCG/100 ML PLAST..BAG 17.063 MCG IV ×3 (00:38→22:11)
[2022-07-11] MEDS: LORazepam 2 MG/ML INJ 1 MG IV ×3 (00:45→20:13)
[2022-07-11] MEDS: BENZONATATE 100 MG CAPSULE PO ×2 (01:51→10:11)
[2022-07-11] MEDS: MORPHINE 4 MG/ML INJ IV (03:53)
[2022-07-11 04:08] LABS: Add Manual Diff / Slide Review NO; Basophils Absolute Auto 100 /uL (0-100); Basophils Percent Auto 0.4 % (0-2); Eosinophils Absolute Auto 100 /uL (0-450); Eosinophils Percent Auto 0.9 % (2-4); Hematocrit 41.9 % (41-53); Hemoglobin 13.9 g/dL (13.5-17.5); Lymphocytes Absolute Auto 1200 /uL (1100-4500); Lymphocytes Percent Auto 8.9 % (25-40); Mean Corpuscular HGB Conc 33.2 % (30-36); Mean Corpuscular Hemoglobin 29.3 PG (26-34); Mean Corpuscular Volume 88.2 fL (80-100); Monocytes Absolute Auto 500 /uL (0-900); Monocytes Percent Auto 4.1 % (3-14); Neutrophils Absolute Auto 11400 /uL (1500-7000); Neutrophils Percent Auto 85.7 % (50-75); Platelet Count 399 X10^3/uL (150-400); Red Blood Cell Count 4.75 X10^6/uL (4.5-5.9); Red Cell Distribution Width 13.8 % (11.6-14.8); White Blood Cell Count 13.3 X10^3/uL (4.5-11.0)
[2022-07-11 04:20] LABS: Alanine Aminotransferase 24 IU/L (<50); Albumin 3.2 g/dL (3.5-5.0); Albumin Globulin Ratio 0.9 (1.0-2.8); Alkaline Phosphatase 56 U/L (38-126); Aspartate Aminotransferase 25 IU/L (17-59); BUN Creatinine Ratio 33.3 (6-22); Bilirubin Total 0.6 mg/dL (0.2-1.3); Blood Urea Nitrogen 17 mg/dL (9-20); Calcium 8.4 mg/dL (8.4-10.2); Carbon Dioxide 28 mmol/L (22-32); Chloride 97 mmol/L (98-107); Estimated Glomerular Filt Rate > 60 mL/min (>60); Globulin 3.5 g/dL (1.7-4.1); Glucose 118 mg/dL (80-110); HEMOLYSIS 31 (0-50); Potassium 4.1 mmol/L (3.4-5.1); Sodium 130 mmol/L (137-145); Total Protein 6.7 g/dL (6.3-8.2)
[2022-07-11] MEDS: dexmedeTOMIDine in 0.9 % NaCL 400 MCG/100 ML PLAST..BAG 21.938 MCG IV ×2 (06:19→10:53)
--- NOTE | 2022-07-11 08:37 | CM.DPNOTE ---
DCP Note Met w/Dr Flaherty and spouse Tahira this morning outside of patient's room. According to Dr Flaherty, patient is not appropriate for transition to comfort care and spouse agrees Spouse upset w/this CHEF ASSISTANT, saying conversation yesterday was confusing and not direct enough for me Medical management continues; This CM team will follow closely for assist w/coordination of DCP if and when appropriate JW
--- NOTE | 2022-07-11 08:40 | P.PN_ITS ---
Subjective Subjective Date Patient Seen: 07/11/22 Time Patient Seen: 08:40 Interval history: Patient's events of yesterday morning seem to be more anxiety related than anything else. Eventually his tachypnea resolved his anxiety reduced his tachycardia resolved and he actually maintain much better oxygen saturation in the mid 90s. Still maxed out on his high-flow oxygen plus non-rebreather externally This morning having some increased anxiety again. Similar response with tachypnea tachycardia but not quite the dramatic hypoxia No other active issues identified. Coming close to the end of his dexamethasone therapy has come to the end of the remdesivir Exam Vital Signs (past 8 hours): - 07/11/22 01:00 07/11/22 01:00 07/11/22 01:11 Temperature Pulse Rate 84 84 Respiratory Rate 36 H 29 H Blood Pressure 116/70 Pulse Oximetry 87 L 86 L Oxygen Delivery Method Oxygen Flow Rate 50 50 50 07/11/22 01:30 07/11/22 01:30 07/11/22 02:00 Temperature Pulse Rate 96 H 95 H Respiratory Rate 42 H 44 H Blood Pressure 126/78 Pulse Oximetry 90 L 88 L Oxygen Delivery Method Oxygen Flow Rate 07/11/22 02:00 07/11/22 02:30 07/11/22 02:30 Temperature Pulse Rate 112 H Respiratory Rate 46 H Blood Pressure 141/80 H 150/92 H Pulse Oximetry 80 L Oxygen Delivery Method Oxygen Flow Rate 07/11/22 02:47 07/11/22 03:00 07/11/22 04:00 Temperature Pulse Rate 98 H 100 H Respiratory Rate 38 H 33 H Blood Pressure Pulse Oximetry 87 L 90 L Oxygen Delivery Method Heated High Flow Non -Rebreather Oxygen Flow Rate 60 07/11/22 03:00 07/11/22 03:30 07/11/22 03:30 Temperature Pulse Rate 108 H Respiratory Rate 33 H Blood Pressure 113/72 131/67 Pulse Oximetry 93 Oxygen Delivery Method Oxygen Flow Rate 60 60 60 07/11/22 04:00 07/11/22 04:00 07/11/22 04:16 Temperature 99.4 F Pulse Rate 108 H 109 H Respiratory Rate 34 H 32 H Blood Pressure 131/75 Pulse Oximetry 89 L 92 Oxygen Delivery Method Oxygen Flow Rate 60 60 60 07/11/22 04:30 07/11/22 04:30 07/11/22 05:00 Temperature Pulse Rate 116 H 117 H Respiratory Rate 35 H 45 H Blood Pressure 140/74 Pulse Oximetry 90 L 85 L Oxygen Delivery Method Oxygen Flow Rate 60 60 60 07/11/22 05:00 07/11/22 05:06 07/11/22 01:00 Temperature Pulse Rate 114 H Respiratory Rate 31 H 28 H Blood Pressure 108/70 Pulse Oximetry 85 L 89 L Oxygen Delivery Method Oxygen Flow Rate 60 60 07/11/22 05:00 07/11/22 05:30 07/11/22 05:30 Temperature Pulse Rate 115 H Respiratory Rate 28 H 32 H Blood Pressure 109/71 Pulse Oximetry 87 L 88 L Oxygen Delivery Method Oxygen Flow Rate 60 60 07/11/22 06:00 07/11/22 06:00 07/11/22 06:20 Temperature Pulse Rate 128 H 111 H Respiratory Rate 38 H 26 H Blood Pressure 112/72 Pulse Oximetry 87 L 92 Oxygen Delivery Method Oxygen Flow Rate 60 60 60 07/11/22 06:30 07/11/22 06:30 07/11/22 07:00 Temperature Pulse Rate 123 H Respiratory Rate 45 H Blood Pressure 132/74 105/66 Pulse Oximetry 87 L Oxygen Delivery Method Oxygen Flow Rate 07/11/22 07:00 07/11/22 07:30 07/11/22 07:30 Temperature Pulse Rate 113 H 108 H Respiratory Rate 42 H 40 H Blood Pressure 110/70 Pulse Oximetry 89 L 90 L Oxygen Delivery Method Oxygen Flow Rate 07/11/22 08:00 07/11/22 08:00 07/11/22 08:11 Temperature 99 F Pulse Rate 119 H 111 H Respiratory Rate 41 H 30 H Blood Pressure 115/72 Pulse Oximetry 92 92 Oxygen Delivery Method Oxygen Flow Rate Fraction of Inspired Oxygen 75 SaO2/FiO2 Ratio 113 Oxygen Delivery Method Heated High Flow,Non -Rebreather Oxygen Flow Rate 60 Objective Labs 07/11/22 04:00 07/11/22 04:00 Labs: Laboratory Results - last 24 hr 07/11/22 07/11/22 04:00 04:00 WBC 13.3 H RBC 4.75 Hgb 13.9 Hct 41.9 MCV 88.2 MCH 29.3 MCHC 33.2 RDW 13.8 Plt Count 399 Neut % (Auto) 85.7 H Lymph % (Auto) 8.9 L Titus % (Auto) 4.1 Eos % (Auto) 0.9 L Baso % (Auto) 0.4 Neut # (Auto) 96233 H Lymph # (Auto) 1200 Titus # (Auto) 500 Eos # (Auto) 100 Baso # (Auto) 100 Sodium 130 L Potassium 4.1 Chloride 97 L Carbon Dioxide 28 BUN 17 Creatinine 0.51 L Estimated GFR > 60 BUN/Creatinine Ratio 33.3 H Glucose 118 H Calcium 8.4 Total Bilirubin 0.6 AST 25 ALT 24 Alkaline Phosphatase 56 Total Protein 6.7 Albumin 3.2 L Globulin 3.5 Albumin/Globulin Ratio 0.9 L PFSH Medical History Adenocarcinoma of right lung, stage 4 Adrenal insufficiency BPH w urinary obs/LUTS Chest wall pain following surgery COVID-19 Diabetes History of colonic polyps Hypertension Shoulder impingement Tobacco consumption Surgical History H/O hand surgery (~2013) H/O shoulder surgery (~1997) History of lung surgery History of vascular access device Family History Father Prostate cancer Social History household members: spouse Smoking Status: Former smoker alcohol intake: current substance use type: does not use Assessment & Plan Assessment & Plan narrative: 1. Respiratory failure-patient looks to be declining yesterday with that appears to be more anxiety related than anything else. He seems stable overall need did manage to rebound yesterday very nicely actually. Continue with current therapies again within 48 hours of the end of the dexamethasone. No reason to withdraw any support at this point although that may be an issue for the future Continue with current therapies and continue to use medications to help with his sense of dyspnea, even at the expense of his respiratory status as noted below, which is confirmed again with patient's spouse 2. Diabetes-blood sugars definitely better. Continue current insulin without change. May need to reduce insulin as he comes off the dexamethasone 3. Fluids/electrolytes/renal-renal function and electrolytes remained normal 4. Lung cancer-as noted previously, therapy on hold until has recovered from this illness to some extent 5. Anxiety-will start some bupropion see if that can make a difference. Perhaps working with our social workers here in the hospital as well for some strategies to help him cognitively work through his anxiety etcetera might be helpful. 6. Goal of care-again discussed with patient and with spouse fairly directly that at this point he is not clearly getting better not clearly getting worse. This is not necessarily outside the norm for patients who been this critically ill with COVID in my experience in in the [facility] hospital experience here. No reason to withdraw any support be thinking about hospice care or comfort care at this point. However comfort is the goal here no matter what and re- emphasized the fact that some of her strategies to help him with comfort may ultimately make his respiratory status worse and in this setting where we have to choose between keeping him comfortable in keeping him alive patient and spouse are very clear that the focus and goal should be keeping him comfortable even at the expense of life. That certainly not the case where he is at today but that maybe something for the future Quality VTE Deep Vein Thrombosis/Pulmonary Embolism Present on Admission: No
[2022-07-11] MEDS: ENOXAPARIN 40 MG/0.4 ML SYRINGE SUBCUT ×2 (08:41→20:13)
[2022-07-11] MEDS: TAMSULOSIN 0.4 MG CAPSULE PO (08:41)
[2022-07-11] MEDS: CHOLECALCIFEROL (VITAMIN D3) 1,000 UNIT TABLET 2000 UNIT PO (08:41)
[2022-07-11] MEDS: PANTOPRAZOLE DR 40 MG TABLET PO (08:41)
[2022-07-11] MEDS: ASPIRIN EC 81 MG TABLET PO (08:41)
[2022-07-11] MEDS: DEXAMETHASONE 4 MG/ML VIAL 6 MG IV (08:42)
[2022-07-11] MEDS: GABAPENTIN 300 MG CAPSULE PO ×2 (08:42→20:13)
[2022-07-11] MEDS: ASCORBIC ACID 500 MG TABLET 1000 MG PO (08:42)
[2022-07-11] MEDS: INSULIN GLARGINE 100 UNIT/ML 3ML PEN 20 UNIT SUBCUT (08:48)
[2022-07-11] MEDS: SODIUM CHLORIDE 0.9% FLUSH 10 ML IV ×2 (08:52→20:14)
[2022-07-11] MEDS: buPROPion SR 100 MG TAB PO ×2 (08:52→20:13)
[2022-07-11] MEDS: LORazepam 2 MG/ML INJ 0.5 MG IV (10:11)
[2022-07-11] MEDS: ACETAMINOPHEN 325 MG TABLET 650 MG PO (10:30)
[2022-07-11] MEDS: CODEINE/GUAIFENESIN LIQUID 5ML UDC 10 ML PO (10:30)
[2022-07-11] MEDS: MELATONIN 3 MG TABLET 9 MG PO (20:12)
--- NOTE | 2022-07-11 20:50 | PM.ICURNDS ---
- :: This patient was seen via real time interactive two-way audiovisual telecommunication. Note: Pt comfortable om HFNV 60 L 1001% , with stable HD status
[2022-07-12] VITALS (38 sets, daily range): BP systolic 77–127; BP diastolic 50–76; PULSE 67–120; RESP 21–48; TEMP 35.9–36.5; O2SAT 85–99
[2022-07-12] MEDS: LORazepam 2 MG/ML INJ 1 MG IV (02:51)
[2022-07-12] MEDS: dexmedeTOMIDine in 0.9 % NaCL 400 MCG/100 ML PLAST..BAG 17.063 MCG IV ×2 (03:52→09:09)
[2022-07-12] MEDS: PANTOPRAZOLE DR 40 MG TABLET PO (06:23)
[2022-07-12] MEDS: CODEINE/GUAIFENESIN LIQUID 5ML UDC 10 ML PO ×2 (07:45→13:35)
[2022-07-12] MEDS: BENZONATATE 100 MG CAPSULE PO ×2 (07:45→18:27)
--- NOTE | 2022-07-12 07:55 | P.PN_ITS ---
Subjective Subjective Date Patient Seen: 07/12/22 Interval history: The pt remains quite tachypneic this morning, however it did improve with Ativan slightly. He is primarily concerned about his nasal congestion and dry mouth, and is working with nursing on these things. He has not had a BM in 3 days. He is eating very little, but is interested in potentially trying a smoothie this m orning. He denies any chest pain or abdominal pain. Exam Vital Signs (past 8 hours): - 07/12/22 00:00 07/12/22 01:22 07/12/22 02:53 Pulse Rate 67 78 Respiratory Rate 22 40 H Blood Pressure 116/72 Pulse Oximetry 91 88 L Oxygen Delivery Method Heated High Flow Non -Rebreather Oxygen Flow Rate 60 60 Fraction of Inspired Oxygen 100 100 07/12/22 00:00 07/12/22 01:00 07/12/22 02:00 Pulse Rate 71 72 68 Respiratory Rate 25 H 34 H 24 Blood Pressure Pulse Oximetry 89 L 89 L 91 Oxygen Delivery Method Oxygen Flow Rate Fraction of Inspired Oxygen 07/12/22 02:49 07/12/22 02:49 07/12/22 03:00 Pulse Rate 86 75 Respiratory Rate 45 H 37 H Blood Pressure 116/72 Pulse Oximetry 88 L 89 L Oxygen Delivery Method Oxygen Flow Rate Fraction of Inspired Oxygen 07/12/22 04:00 07/12/22 04:00 07/12/22 05:00 Pulse Rate 69 81 Respiratory Rate 39 H 34 H Blood Pressure Pulse Oximetry 92 90 L Oxygen Delivery Method Heated High Flow Non -Rebreather Oxygen Flow Rate Fraction of Inspired Oxygen 07/12/22 00:00 07/12/22 04:00 Pulse Rate 68 72 Respiratory Rate 28 H 28 H Blood Pressure Pulse Oximetry 90 L 90 L Oxygen Delivery Method Oxygen Flow Rate Fraction of Inspired Oxygen Fraction of Inspired Oxygen 100 SaO2/FiO2 Ratio 113 Oxygen Delivery Method Heated High Flow,Non -Rebreather Oxygen Flow Rate 60 Narrative Exam Narrative: Gen: appears anxious, sitting comfortably in bed, oxygen in place CV: RRR, grade 4/6 systolic murmur Resp: coarse breath sounds throughout with crackles bilateral bases, decent air movement, no wheezing Abd: soft, nontender, nondistended, normactive bowel sounds Ext: no edema Objective Labs 07/11/22 04:00 07/11/22 04:00 PFSH Medical History Adenocarcinoma of right lung, stage 4 Adrenal insufficiency BPH w urinary obs/LUTS Chest wall pain following surgery COVID-19 Diabetes History of colonic polyps Hypertension Shoulder impingement Tobacco consumption Surgical History H/O hand surgery (~2013) H/O shoulder surgery (~1997) History of lung surgery History of vascular access device Family History Father Prostate cancer Social History household members: spouse Smoking Status: Former smoker alcohol intake: current substance use type: does not use Assessment & Plan Assessment & Plan narrative: Pt is a 67yo man with stage 4 lung cancer, DM type 2, and HTN who presented with worsening SOB, found to have acute respiratory failure with COVID. 1) Acute hypoxic respiratory failure: Due to COVID in addition to underlying lung cancer. Pt becoming more hypoxic, with O2 sats now in the upper 80s/low 90s on maximum oxygen therapies with nonrebreather and HHFNC. Very concerning for further decompensation. - Continue Dexamethasone, plan to d/c tomorrow after completion of course - Proning as tolerated, with Ativan to be given prior - Continue IS as able - Continue oxygen supplementation - Pt and his family had lengthy discussion with tele-activity specialist prior to my arrival, which was confirmed by myself as well. Pt does desire all interventions at this point, including CPR in the event of cardiac arrest. It was discussed that CPR without intubation is futile in his clinical situation. The pt was agreeable to intubation with CPR in the event of a sudden event, however would like to have repeat discussions regarding intubation with more gradual decline. - Pts family does not desire morphine for air hunger for now, as concerned about delirium 2) Anxiety: Bupropion initiated yesterday. - Continue Bupropion - Ativan initiated as well 3) Malnutrition: Pt down 15lbs since admission, very limited PO intake - Nutrition consult today - Pt was interested in trying a smoothie and potentially some Jello today 4) DM Type 2: Blood sugars continue to improve - Continue insulin at current dosing, will likely need adjustment once off Dexamethasone 5) Lung cancer: Therapy currently on hold Code: Full code for now, pt did express desire for all interventions this morning, very lucid DVT ppx: Lovenox FEN: As tolerated, nutrition consulted as above Dispo: Pt remote from possible discharge. Quality VTE Deep Vein Thrombosis/Pulmonary Embolism Present on Admission: No
[2022-07-12] MEDS: buPROPion SR 100 MG TAB PO ×2 (09:06→21:14)
[2022-07-12] MEDS: CHOLECALCIFEROL (VITAMIN D3) 1,000 UNIT TABLET 2000 UNIT PO (09:06)
[2022-07-12] MEDS: ASPIRIN EC 81 MG TABLET PO (09:06)
[2022-07-12] MEDS: SENNOSIDES 8.6 MG TABLET PO (09:07)
[2022-07-12] MEDS: ENOXAPARIN 40 MG/0.4 ML SYRINGE SUBCUT ×2 (09:07→21:14)
[2022-07-12] MEDS: TAMSULOSIN 0.4 MG CAPSULE PO (09:07)
[2022-07-12] MEDS: ASCORBIC ACID 500 MG TABLET 1000 MG PO (09:07)
[2022-07-12] MEDS: GABAPENTIN 300 MG CAPSULE PO ×2 (09:08→21:14)
[2022-07-12] MEDS: SODIUM CHLORIDE 0.9% FLUSH 10 ML IV ×2 (09:08→21:31)
[2022-07-12] MEDS: INSULIN GLARGINE 100 UNIT/ML 3ML PEN 20 UNIT SUBCUT (09:22)
[2022-07-12] MEDS: LORazepam 2 MG/ML INJ IV ×3 (10:00→15:58)
--- NOTE | 2022-07-12 10:26 | PM.PN.EICU ---
Subjective Subjective IF CAMERA ACTIVATED, patient seen via real-time interactive audiovisual communication: Camera activated Consent obtained for tele-hairspring ii inspector care: Yes Patient Location: ICU Provider location (State): [place] Other participants/roles: RN,. , Daughter Interval history: I spoke with team during MDr. patient is getting more hypoxemic on 100% NRBM and HFNC. His wfe and daughter were also present. When i confirmed GOC with tehm, they stated they wanted to defer all GOC decisions to him, as te wanted to remain in control of his care. On video I discussed pronation with him, and he agreed to attempt self proning after ativan was given. When I discussed GOC, he stated he wanted CPR, as he wanted to remain an alive and wanted all measures done - except intubation. I expleined that CPR is futile wihtout intubation, and would go hand in hand in this ARDS situation. He then agreed to inutbation only if there is severe clinical detrioration that would lead to a high likely segal of cardiac arrest. Current Medications Current Medications Medications: Home Medications sildenafil 100 mg tablet 50 - 100 mg PO DAILY PRN sexual activity #10 tabs 09/13/21 [Rx Confirmed 07/03/22] losartan 25 mg tablet 25 mg PO DAILY #90 tabs 10/14/21 [Rx Confirmed 07/03/22] aspirin 81 mg capsule 81 mg PO DAILY 06/17/22 [History Confirmed 07/03/22] tamsulosin 0.4 mg capsule 0.4 mg PO DAILY #90 caps 06/19/22 [Rx Confirmed 07/03/22] gabapentin 300 mg capsule 300 mg PO .COMPLEX #90 caps 06/25/22 [Rx Confirmed 07/03/22] prednisone 10 mg tablet 10 mg PO DAILY 06/25/22 [History Confirmed 07/03/22] dextromethorphan HBr 15 mg capsule 15 mg PO .HS PRN cough #60 caps 06/26/22 [Rx Confirmed 07/03/22] guaifenesin 1,200 mg tablet, extended release 12 hr 1,200 mg PO BID #60 tabs 06/26/22 [Rx Confirmed 07/03/22] hydroxyzine HCl 50 mg tablet 100 mg PO QID PRN itching #180 tabs 06/26/22 [Rx Confirmed 07/03/22] ipratropium 20 mcg-albuterol 100 mcg/actuation mist for inhalation (Combivent Respimat) 1 puff inhalation Q4H PRN cough #4 grams 06/26/22 [Rx Confirmed 07/03/22] ondansetron 4 mg disintegrating tablet 4 mg PO TID #90 tabs 06/26/22 [Rx Confirmed 07/03/22] naloxone 4 mg/actuation nasal spray (Narcan) 4 mg intranasal Q3M PRN opioid overdose #2 ea 07/01/22 [Rx Confirmed 07/03/22] oxycodone 10 mg tablet 10 - 20 mg PO Q4H PRN pain #90 tabs 07/01/22 [Rx Confirmed 07/03/22] uhhecgtrgnxhlaf-zmhfluf-ZE 30 mg-10 mg-100 mg/5 mL oral syrup 5 ml PO Q4H PRN cough #473 mL 07/01/22 [Rx Confirmed 07/03/22] docusate sodium 100 mg capsule 200 mg PO BID PRN opioids #180 caps 07/02/22 [Rx Confirmed 07/03/22] fentanyl 37.5 mcg/hour transdermal patch 1 patch transdermal Q72H #5 ea 07/02/22 [Rx Confirmed 07/03/22] sennosides 8.6 mg tablet (Natural Senna Laxative) 8.6 mg PO BID PRN constipation #60 tabs 07/02/22 [Rx Confirmed 07/03/22] Visit Medications (administered) Generic Name Dose Route Start Last Admin Trade Name Freq PRN Reason Stop Dose Admin Acetaminophen 650 mg 07/03/22 16:35 07/11/22 10:30 Acetaminophen 325 Mg Tablet PO 650 mg Q6H PRN Administration Fever/Mild Pain (1-3) Albuterol/Ipratropium 3 ml 07/03/22 16:52 07/09/22 01:33 Albuterol/Ipratropium 3 Ml Ampul INH 3 ml Q4H PRN Administration cough Ascorbic Acid 1,000 mg 07/06/22 10:45 07/12/22 09:07 Ascorbic Acid 500 Mg Tablet PO 1,000 mg DAILY CINDI Administration Aspirin 81 mg 07/04/22 09:00 07/12/22 09:06 Aspirin Ec 81 Mg Tablet PO 81 mg DAILY CINDI Administration Benzonatate 100 mg 07/03/22 20:42 07/12/22 07:45 Benzonatate 100 Mg Capsule PO 100 mg TID PRN Administration Cough Bupropion HCl 100 mg 07/11/22 09:00 07/12/22 09:06 Bupropion Sr 100 Mg Tab PO 100 mg BID CINDI Administration Dexamethasone 6 mg 07/05/22 09:00 07/12/22 09:07 Dexamethasone 4 Mg/Ml Vial IV 07/13/22 05:00 6 mg DAILY CINDI Administration Docusate Sodium 200 mg 07/03/22 16:48 07/04/22 20:15 Docusate 100 Mg Capsule PO 200 mg BID PRN Administration opioids Enoxaparin Sodium 40 mg 07/03/22 21:00 07/12/22 09:07 Enoxaparin 40 Mg/0.4 Ml Syringe SUBCUT 40 mg BID CINDI Administration Fentanyl 25 mcg 07/03/22 17:00 07/09/22 17:02 Fentanyl 25 Mcg/Patch TOP 25 mcg Q72H CINDI Administration Gabapentin 300 mg 07/03/22 21:00 07/12/22 09:08 Gabapentin 300 Mg Capsule PO 300 mg TID CINDI Administration Guaifenesin/Codeine Phosphate 10 ml 07/03/22 20:42 07/12/22 07:45 Codeine/Guaifenesin Liquid 5ml Udc PO 10 ml Q6H PRN Administration Cough dexmedeTOMIDine in 0.9 % NaCL 400 mcg in 100 mls @ 4.875 mls/hr 07/04/22 21:15 07/12/22 09:09 Precedex IV 0.7 mcg/kg/hr TITRATE CINDI 17.063 mls/hr Administration Protocol 0.2 MCG/KG/HR Insulin Glargine 20 unit 07/08/22 09:00 07/12/22 09:22 Insulin Glargine 100 Unit/Ml 3ml Pen SUBCUT 20 unit DAILY CINDI Administration Insulin Human Lispro 0 unit 07/03/22 21:00 07/12/22 08:00 Insulin Lispro 100 Unit/Ml 3ml Vial SUBCUT Not Given ACHS [facility] Protocol Lorazepam 0.5 mg 07/09/22 08:40 07/11/22 10:11 Lorazepam 2 Mg/Ml Inj IV 0.5 mg Q2HR PRN Administration Anxiety Lorazepam 1 mg 07/09/22 08:43 07/12/22 09:28 Lorazepam 2 Mg/Ml Inj IV 1 mg Q2HR PRN Administration severe anxiety Melatonin 9 mg 07/08/22 21:00 07/11/22 20:12 Melatonin 3 Mg Tablet PO 9 mg BEDTIME CINDI Administration Morphine Sulfate 4 mg 07/08/22 06:47 07/11/22 03:53 Morphine 4 Mg/Ml Inj IV 4 mg Q3H PRN Administration Pain, Severe (7-10) Oxycodone HCl 10 mg 07/03/22 16:35 07/05/22 16:51 Oxycodone Ir 10 Mg Tablet PO 10 mg Q3H PRN Administration Pain, Severe (7-10) Pantoprazole Sodium 40 mg 07/05/22 07:00 07/12/22 06:[address] 40 Mg Tablet PO 40 mg 0700 CINDI Administration Sennosides 8.6 mg 07/03/22 16:48 07/12/22 09:07 Sennosides 8.6 Mg Tablet PO 8.6 mg BID PRN Administration constipation Sodium Chloride 10 ml 07/03/22 21:07 07/05/22 20:39 Sodium Chloride 0.9% Flush IV 10 ml PRN PRN Administration Flush Sodium Chloride 10 ml 07/04/22 09:00 07/12/22 09:08 Sodium Chloride 0.9% Flush IV 10 ml BID CINDI Administration Tamsulosin HCl 0.4 mg 07/04/22 09:00 07/12/22 09:07 Tamsulosin 0.4 Mg Capsule PO 0.4 mg DAILY CINDI Administration Vitamin D 2,000 unit 07/06/22 10:45 07/12/22 09:06 Cholecalciferol (Vitamin D3) 1,000 Unit Tablet PO 2,000 unit DAILY CINDI Administration Objective Ventilator Parameters: Ventilator Settings FiO2 100 Labs 07/11/22 04:00 07/11/22 04:00 Exam Vital Signs (past 8 hours): - 07/12/22 02:53 07/12/22 02:49 07/12/22 02:49 Pulse Rate 78 86 Respiratory Rate 40 H 45 H Blood Pressure 116/72 116/72 Pulse Oximetry 88 L 88 L Oxygen Delivery Method Oxygen Flow Rate 60 Fraction of Inspired Oxygen 100 07/12/22 03:00 07/12/22 04:00 07/12/22 04:00 Pulse Rate 75 69 Respiratory Rate 37 H 39 H Blood Pressure Pulse Oximetry 89 L 92 Oxygen Delivery Method Heated High Flow Non -Rebreather Oxygen Flow Rate Fraction of Inspired Oxygen 07/12/22 05:00 07/12/22 04:00 07/12/22 09:21 Pulse Rate 81 72 107 H Respiratory Rate 34 H 28 H 34 H Blood Pressure Pulse Oximetry 90 L 90 L 91 Oxygen Delivery Method Oxygen Flow Rate Fraction of Inspired Oxygen 07/12/22 09:32 Pulse Rate 107 H Respiratory Rate Blood Pressure Pulse Oximetry 91 Oxygen Delivery Method Heated High Flow Non -Rebreather Oxygen Flow Rate Fraction of Inspired Oxygen 100 Fraction of Inspired Oxygen 100 SaO2/FiO2 Ratio 91 Oxygen Delivery Method Heated High Flow,Non -Rebreather Oxygen Flow Rate 60 Narrative Exam Narrative: surrogate for exam is primary team Const Other: ill appearing , on HFNC and nrbm Resp Other: tachypenic Quality TeleICU VTE Deep Vein Thrombosis/Pulmonary Embolism Present on Admission: No Assessment & Plan Assessment and plan (1) Acute respiratory failure with hypoxia: Status: Acute (2) COVID-19 virus infection: Status: Acute (3) Adenocarcinoma of lung: Status: Acute (4) Hypertension: Qualifiers: Hypertension type: essential hypertension Qualified Code(s): I10 - Essential (primary) hypertension Status: Chronic (5) Diabetes: Qualifiers: Diabetes mellitus type: type 2 Diabetes mellitus long-term insulin use: without exterminator helper termite use Diabetes mellitus complication status: without complication Qualified Code(s): E11.9 - Type 2 diabetes mellitus without complications Status: Chronic (6) ARDS survivor: Status: Acute Plan continue HFNC and nrbm self proning as toelrated incentive spirometry trend abg would avoid bipap given secretion load would intubate his his RR acutely worsens or hypoxemia worsens further can conitnue ativan for anxiety / air hunger as family/pt worried about delirium with morphine dvt/gi ppx will sned procal repeat CXR and abg Pt has a high risk of intubation after reviewing imaging, addiionally, I do think he has a poor prognosis given his history, and it will not loikely have a strong impact on his mortality, however he wishes to remain full code for now total critical care time = 35 min Time Spent With Patient Time with patient: 30 to 49 minutes with 50% spent counseling/coordinating care
--- NOTE | 2022-07-12 10:40 | DI.RAD.S_ITS ---
PROCEDURE: XR CHEST 1V INDICATIONS: ARDS, covid TECHNIQUE: One view of the chest was acquired. COMPARISON: [facility], CR, XR CHEST 1V, 07/03/2022, 13:08. FINDINGS: Surgical changes and devices: Left Port-A-Cath is unchanged. Lungs and pleura: Prominent bilateral pulmonary opacities more severe on the left. This demonstrates interval worsening compared to prior exam. Mild interval improvement is noted on the right compared to prior exam. Mediastinum: Mediastinal contours appear normal. Heart size is normal. Bones and chest wall: No suspicious bony lesions. Overlying soft tissues appear unremarkable. IMPRESSION: Bilateral pulmonary opacities now more severe on the left most consistent with pneumonia. Dictated by: Zaira Kelley M.D. on 07/12/2022 at 12:02 Approved by: Zaira Kelley M.D. on 07/12/2022 at 12:02
--- NOTE | 2022-07-12 12:33 | PM.EICU.INT ---
Teleintensivist Intervention Date/Time Was camera activated?: No Issue(s) Addressed Issue(s): Abnormal labs Intervention(s) :: Xr returned, there are air bronchograms on left, this isn't necessarily surprising given his history and ARDS, but given his worsneing I will order empiric abx.
[2022-07-12 12:47] LABS: Procalcitonin 0.13 ng/mL (<0.5)
[2022-07-12] MEDS: levoFLOXacin 750 MG/150 ML PIGGYBACK 100 MG IV (13:06)
[2022-07-12] MEDS: INSULIN LISPRO 100 UNIT/ML 3ML VIAL SUBCUT ×2 (13:07→17:04)
--- NOTE | 2022-07-12 14:10 | PC.NURSE ---
1345 Patient heavily assisted in proning by this RN, Lita, RN, and Jean Claude, EMBOSSING PRESS OPERATOR [employer]. Patient premedicated with 2mg Ativan IV and also received cough syrup. bilateral arms are in swim position and left leg bent with a pillow placed underneath. HFNC 60L/100% remains in place with Nonrebreather at 15L over that. Patient's daughter and son in law in room during proning and patient's , Tahira, arrived right after patient was proned. Pt is ST 105, O2 sat is 88%, RR in the 30's. Discussed code status again as patient became irritated earlier when intubation was mentioned by EMBOSSING PRESS OPERATOR [employer] as he rachael patient's ABG. This nurse and patient discussed at length intubation and CPR, as well as the fact that CPR would likely be ineffective without intubation since the most likely cause of a cardiac arrest at this point would be a respiratory arrest. Pt verbalized understanding. When discussed again with daughter and son in law present, pt stated that he does not want to be intubated, but does want CPR, were he to cardiac arrest.
--- NOTE | 2022-07-12 14:55 | PC.NURSE ---
[address] Rao over the phone and relayed patient's wishes to be a DNI (Do Not Intubate), but does wish to have CPR if he were to have a cardiac arrest. Telephone order to change patient's code status to Limited code - CPR okay, but Do not Intubate. Order entered.
[2022-07-12] MEDS: dexmedeTOMIDine in 0.9 % NaCL 400 MCG/100 ML PLAST..BAG 19.5 MCG IV ×2 (15:38→19:54)
[2022-07-12 16:15] LABS: HCO3 ABG 29 mmol/L (23-27); Oxygen Saturation ABG 90 % (95-100); PCO2 ABG 46.3 mmHg (35-45); PO2 ABG 60 mmHg (80-100); TCO2 ABG 30 mmol/L (23-27)
[2022-07-12 16:16] LABS: Fractionated Inspired Oxygen 100
[2022-07-12] MEDS: fentaNYL 25 MCG/PATCH TOP (17:03)
[2022-07-12] MEDS: ACETAMINOPHEN 325 MG TABLET 650 MG PO (18:27)
--- NOTE | 2022-07-12 19:14 | PC.NURSE ---
1755 Patient supined without incident with assistance from this nurse, Lita RN, and Jean Claude, POLI.
--- NOTE | 2022-07-12 20:21 | PM.ICURNDS ---
- :: This patient was seen via real time interactive two-way audiovisual telecommunication. Note: Patient remains on precedex 0.7 and HFNC 60/100%. CXR reviewed and showed bilateral airspace disease. Tolerated proning for 4 hours. Diuresed and negative 500 mL. Will titrate FiO2 to maintain goal SpO2 > 88%. D/w bedside RN.
--- NOTE | 2022-07-12 20:27 | PC.NURSE ---
Addendum entered by Leila Leary R.N. 07/13/22 06:01: Patient sleeping on and off most of shift. When awake O2 sats 88-90%, when sleeping O2 sats up to 94%. Patient medicated once with ativan for anxiety with adequate results. Family remains at bedside. Original Note: RT at bedside for ABG, family refusing the draw for patient.
[2022-07-12] MEDS: MELATONIN 3 MG TABLET 9 MG PO (21:14)
[2022-07-13] VITALS (31 sets, daily range): BP systolic 80–140; BP diastolic 47–76; PULSE 67–120; RESP 15–40; TEMP 35.9–37.3; O2SAT 81–94
[2022-07-13] MEDS: BENZONATATE 100 MG CAPSULE PO ×2 (00:16→10:00)
[2022-07-13] MEDS: CODEINE/GUAIFENESIN LIQUID 5ML UDC 10 ML PO ×2 (00:16→05:54)
[2022-07-13] MEDS: dexmedeTOMIDine in 0.9 % NaCL 400 MCG/100 ML PLAST..BAG 17.063 MCG IV ×3 (01:08→10:21)
[2022-07-13] MEDS: LORazepam 2 MG/ML INJ IV ×8 (01:09→23:23)
[2022-07-13 04:23] LABS: Add Manual Diff / Slide Review NO; Basophils Absolute Auto 100 /uL (0-100); Basophils Percent Auto 0.9 % (0-2); Eosinophils Absolute Auto 100 /uL (0-450); Eosinophils Percent Auto 0.8 % (2-4); Hematocrit 39.5 % (41-53); Hemoglobin 13.5 g/dL (13.5-17.5); Lymphocytes Absolute Auto 700 /uL (1100-4500); Lymphocytes Percent Auto 7.5 % (25-40); Mean Corpuscular HGB Conc 34.1 % (30-36); Mean Corpuscular Hemoglobin 29.8 PG (26-34); Mean Corpuscular Volume 87.4 fL (80-100); Monocytes Absolute Auto 500 /uL (0-900); Neutrophils Absolute Auto 8500 /uL (1500-7000); Neutrophils Percent Auto 85.8 % (50-75); Platelet Count 315 X10^3/uL (150-400); Red Blood Cell Count 4.52 X10^6/uL (4.5-5.9); Red Cell Distribution Width 13.6 % (11.6-14.8); White Blood Cell Count 9.9 X10^3/uL (4.5-11.0)
[2022-07-13 04:33] LABS: Alanine Aminotransferase 24 IU/L (<50); Albumin Globulin Ratio 0.9 (1.0-2.8); Alkaline Phosphatase 57 U/L (38-126); Aspartate Aminotransferase 23 IU/L (17-59); BUN Creatinine Ratio 42.1 (6-22); Bilirubin Total 0.4 mg/dL (0.2-1.3); Blood Urea Nitrogen 24 mg/dL (9-20); Calcium 8.6 mg/dL (8.4-10.2); Carbon Dioxide 33 mmol/L (22-32); Chloride 97 mmol/L (98-107); Estimated Glomerular Filt Rate > 60 mL/min (>60); Globulin 3.2 g/dL (1.7-4.1); Glucose 120 mg/dL (80-110); HEMOLYSIS < 15 (0-50); Potassium 4.3 mmol/L (3.4-5.1); Sodium 132 mmol/L (137-145); Total Protein 6.2 g/dL (6.3-8.2)
[2022-07-13] MEDS: PANTOPRAZOLE DR 40 MG TABLET PO (05:54)
[2022-07-13] MEDS: SENNOSIDES 8.6 MG TABLET PO (07:37)
[2022-07-13] MEDS: INSULIN LISPRO 100 UNIT/ML 3ML VIAL SUBCUT ×2 (08:06→17:00)
[2022-07-13] MEDS: INSULIN GLARGINE 100 UNIT/ML 3ML PEN 20 UNIT SUBCUT (08:06)
[2022-07-13] MEDS: DOCUSATE 100 MG CAPSULE 200 MG PO (08:07)
[2022-07-13] MEDS: ASPIRIN EC 81 MG TABLET PO (08:07)
[2022-07-13] MEDS: ENOXAPARIN 40 MG/0.4 ML SYRINGE SUBCUT ×2 (08:07→20:16)
[2022-07-13] MEDS: CHOLECALCIFEROL (VITAMIN D3) 1,000 UNIT TABLET 2000 UNIT PO (08:07)
[2022-07-13] MEDS: SODIUM CHLORIDE 0.9% FLUSH 10 ML IV (08:08)
[2022-07-13] MEDS: TAMSULOSIN 0.4 MG CAPSULE PO (08:08)
[2022-07-13] MEDS: ASCORBIC ACID 500 MG TABLET 1000 MG PO (08:08)
[2022-07-13] MEDS: buPROPion SR 100 MG TAB PO (08:08)
--- NOTE | 2022-07-13 09:55 | PM.PN.EICU ---
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 Pt has hcnaged his GOC again to be DNI ,regardless if he enters cardiac arrest. Will attmept to self prone again Current Medications Current Medications Medications: Home Medications sildenafil 100 mg tablet 50 - 100 mg PO DAILY PRN sexual activity #10 tabs 09/13/21 [Rx Confirmed 07/03/22] losartan 25 mg tablet 25 mg PO DAILY #90 tabs 10/14/21 [Rx Confirmed 07/03/22] aspirin 81 mg capsule 81 mg PO DAILY 06/17/22 [History Confirmed 07/03/22] tamsulosin 0.4 mg capsule 0.4 mg PO DAILY #90 caps 06/19/22 [Rx Confirmed 07/03/22] gabapentin 300 mg capsule 300 mg PO .COMPLEX #90 caps 06/25/22 [Rx Confirmed 07/03/22] prednisone 10 mg tablet 10 mg PO DAILY 06/25/22 [History Confirmed 07/03/22] dextromethorphan HBr 15 mg capsule 15 mg PO .HS PRN cough #60 caps 06/26/22 [Rx Confirmed 07/03/22] guaifenesin 1,200 mg tablet, extended release 12 hr 1,200 mg PO BID #60 tabs 06/26/22 [Rx Confirmed 07/03/22] hydroxyzine HCl 50 mg tablet 100 mg PO QID PRN itching #180 tabs 06/26/22 [Rx Confirmed 07/03/22] ipratropium 20 mcg-albuterol 100 mcg/actuation mist for inhalation (Combivent Respimat) 1 puff inhalation Q4H PRN cough #4 grams 06/26/22 [Rx Confirmed 07/03/22] ondansetron 4 mg disintegrating tablet 4 mg PO TID #90 tabs 06/26/22 [Rx Confirmed 07/03/22] naloxone 4 mg/actuation nasal spray (Narcan) 4 mg intranasal Q3M PRN opioid overdose #2 ea 07/01/22 [Rx Confirmed 07/03/22] oxycodone 10 mg tablet 10 - 20 mg PO Q4H PRN pain #90 tabs 07/01/22 [Rx Confirmed 07/03/22] kdtidiuzoxvraia-kahwxcw-KG 30 mg-10 mg-100 mg/5 mL oral syrup 5 ml PO Q4H PRN cough #473 mL 07/01/22 [Rx Confirmed 07/03/22] docusate sodium 100 mg capsule 200 mg PO BID PRN opioids #180 caps 07/02/22 [Rx Confirmed 07/03/22] fentanyl 37.5 mcg/hour transdermal patch 1 patch transdermal Q72H #5 ea 07/02/22 [Rx Confirmed 07/03/22] sennosides 8.6 mg tablet (Natural Senna Laxative) 8.6 mg PO BID PRN constipation #60 tabs 07/02/22 [Rx Confirmed 07/03/22] Visit Medications (administered) Generic Name Dose Route Start Last Admin Trade Name Freq PRN Reason Stop Dose Admin Acetaminophen 650 mg 07/03/22 16:35 07/12/22 18:27 Acetaminophen 325 Mg Tablet PO 650 mg Q6H PRN Administration Fever/Mild Pain (1-3) Albuterol/Ipratropium 3 ml 07/03/22 16:52 07/09/22 01:33 Albuterol/Ipratropium 3 Ml Ampul INH 3 ml Q4H PRN Administration cough Ascorbic Acid 1,000 mg 07/06/22 10:45 07/13/22 08:08 Ascorbic Acid 500 Mg Tablet PO 1,000 mg DAILY CINDI Administration Aspirin 81 mg 07/04/22 09:00 07/13/22 08:07 Aspirin Ec 81 Mg Tablet PO 81 mg DAILY CINDI Administration Benzonatate 100 mg 07/03/22 20:42 07/13/22 07:37 Benzonatate 100 Mg Capsule PO 100 mg TID PRN Administration Cough Bupropion HCl 100 mg 07/11/22 09:00 07/13/22 08:08 Bupropion Sr 100 Mg Tab PO 100 mg BID CINDI Administration Docusate Sodium 200 mg 07/03/22 16:48 07/13/22 08:07 Docusate 100 Mg Capsule PO 200 mg BID PRN Administration opioids Enoxaparin Sodium 40 mg 07/03/22 21:00 07/13/22 08:07 Enoxaparin 40 Mg/0.4 Ml Syringe SUBCUT 40 mg BID CINDI Administration Fentanyl 25 mcg 07/03/22 17:00 07/12/22 17:03 Fentanyl 25 Mcg/Patch TOP 25 mcg Q72H CINDI Administration Gabapentin 300 mg 07/03/22 21:00 07/13/22 08:08 Gabapentin 300 Mg Capsule PO Not Given TID CINDI Guaifenesin/Codeine Phosphate 10 ml 07/03/22 20:42 07/13/22 05:54 Codeine/Guaifenesin Liquid 5ml Udc PO 10 ml Q6H PRN Administration Cough dexmedeTOMIDine in 0.9 % NaCL 400 mcg in 100 mls @ 4.875 mls/hr 07/04/22 21:15 07/13/22 05:54 Precedex IV 0.7 mcg/kg/hr TITRATE CINDI 17.063 mls/hr Administration Protocol 0.2 MCG/KG/HR Insulin Glargine 20 unit 07/08/22 09:00 07/13/22 08:06 Insulin Glargine 100 Unit/Ml 3ml Pen SUBCUT 20 unit DAILY CINDI Administration Insulin Human Lispro 0 unit 07/03/22 21:00 07/13/22 08:06 Insulin Lispro 100 Unit/Ml 3ml Vial SUBCUT 8 unit ACHS CINDI Administration Protocol Lorazepam 0.5 mg 07/09/22 08:40 07/11/22 10:11 Lorazepam 2 Mg/Ml Inj IV 0.5 mg Q2HR PRN Administration Anxiety Lorazepam 1 mg 07/09/22 08:43 07/12/22 02:51 Lorazepam 2 Mg/Ml Inj IV 1 mg Q2HR PRN Administration severe anxiety Lorazepam 2 mg 07/10/22 08:44 07/13/22 08:06 Lorazepam 2 Mg/Ml Inj IV 2 mg Q1H PRN Administration severe dyspnea Melatonin 9 mg 07/08/22 21:00 07/12/22 21:14 Melatonin 3 Mg Tablet PO 9 mg BEDTIME CINDI Administration Morphine Sulfate 4 mg 07/08/22 06:47 07/11/22 03:53 Morphine 4 Mg/Ml Inj IV 4 mg Q3H PRN Administration Pain, Severe (7-10) Oxycodone HCl 10 mg 07/03/22 16:35 07/05/22 16:51 Oxycodone Ir 10 Mg Tablet PO 10 mg Q3H PRN Administration Pain, Severe (7-10) Pantoprazole Sodium 40 mg 07/05/22 07:00 07/13/22 05:[address] 40 Mg Tablet PO 40 mg 0700 CINDI Administration Sennosides 8.6 mg 07/03/22 16:48 07/13/22 07:37 Sennosides 8.6 Mg Tablet PO 8.6 mg BID PRN Administration constipation Sodium Chloride 10 ml 07/03/22 21:07 07/05/22 20:39 Sodium Chloride 0.9% Flush IV 10 ml PRN PRN Administration Flush Sodium Chloride 10 ml 07/04/22 09:00 07/13/22 08:08 Sodium Chloride 0.9% Flush IV 10 ml BID CINDI Administration Tamsulosin HCl 0.4 mg 07/04/22 09:00 07/13/22 08:08 Tamsulosin 0.4 Mg Capsule PO 0.4 mg DAILY CINDI Administration Vitamin D 2,000 unit 07/06/22 10:45 07/13/22 08:07 Cholecalciferol (Vitamin D3) 1,000 Unit Tablet PO 2,000 unit DAILY CINDI Administration Objective Ventilator Parameters: Ventilator Settings FiO2 100 Labs 07/13/22 04:10 07/13/22 04:10 Labs: Laboratory Results - last 24 hr 07/12/22 07/12/22 07/13/22 11:45 12:01 04:10 WBC 9.9 RBC 4.52 Hgb 13.5 Hct 39.5 L MCV 87.4 MCH 29.8 MCHC 34.1 RDW 13.6 Plt Count 315 Neut % (Auto) 85.8 H Lymph % (Auto) 7.5 L [place] % (Auto) 5.0 Eos % (Auto) 0.8 L Baso % (Auto) 0.9 Neut # (Auto) 8500 H Lymph # (Auto) 700 L [place] # (Auto) 500 Eos # (Auto) 100 Baso # (Auto) 100 ABG pH 7.40 ABG pCO2 46.3 H ABG pO2 60 L ABG HCO3 29 H ABG Total CO2 30 H ABG O2 Saturation 90 L ABG Base Excess 4.0 H FiO2 100 Sodium Potassium Chloride Carbon Dioxide BUN Creatinine Estimated GFR BUN/Creatinine Ratio Glucose Calcium Total Bilirubin AST ALT Alkaline Phosphatase Total Protein Albumin Globulin Albumin/Globulin Ratio Procalcitonin 0.13 07/13/22 04:10 WBC RBC Hgb Hct MCV MCH MCHC RDW Plt Count Neut % (Auto) Lymph % (Auto) [place] % (Auto) Eos % (Auto) Baso % (Auto) Neut # (Auto) Lymph # (Auto) [place] # (Auto) Eos # (Auto) Baso # (Auto) ABG pH ABG pCO2 ABG pO2 ABG HCO3 ABG Total CO2 ABG O2 Saturation ABG Base Excess FiO2 Sodium 132 L Potassium 4.3 Chloride 97 L Carbon Dioxide 33 H BUN 24 H Creatinine 0.57 L Estimated GFR > 60 BUN/Creatinine Ratio 42.1 H Glucose 120 H Calcium 8.6 Total Bilirubin 0.4 AST 23 ALT 24 Alkaline Phosphatase 57 Total Protein 6.2 L Albumin 3.0 L Globulin 3.2 Albumin/Globulin Ratio 0.9 L Procalcitonin Exam Vital Signs (past 8 hours): - 07/13/22 02:00 07/13/22 02:00 07/13/22 03:00 Temperature Pulse Rate 70 Respiratory Rate 15 Blood Pressure 95/56 L 108/62 Pulse Oximetry 94 Oxygen Delivery Method Oxygen Flow Rate 07/13/22 03:00 07/13/22 04:00 07/13/22 04:00 Temperature 98.1 F Pulse Rate 68 67 Respiratory Rate 28 H 32 H Blood Pressure 93/64 Pulse Oximetry 93 91 Oxygen Delivery Method Oxygen Flow Rate 07/13/22 05:00 07/13/22 05:01 07/13/22 05:01 Temperature Pulse Rate 68 68 Respiratory Rate 27 H 33 H Blood Pressure 105/62 Pulse Oximetry 91 91 Oxygen Delivery Method Oxygen Flow Rate 07/13/22 06:00 07/13/22 06:00 07/13/22 03:00 Temperature Pulse Rate 97 H 102 H Respiratory Rate 36 H 30 H Blood Pressure 111/70 Pulse Oximetry 86 L 90 L Oxygen Delivery Method Oxygen Flow Rate 07/13/22 08:00 07/13/22 07:00 07/13/22 07:00 Temperature Pulse Rate 94 H Respiratory Rate 40 H Blood Pressure 95/53 L Pulse Oximetry 88 L Oxygen Delivery Method Heated High Flow Non -Rebreather Oxygen Flow Rate 07/13/22 08:00 07/13/22 08:00 07/13/22 09:00 Temperature 97.2 F L Pulse Rate 99 H 101 H Respiratory Rate 38 H 32 H Blood Pressure 115/68 Pulse Oximetry 87 L 90 L Oxygen Delivery Method Oxygen Flow Rate 60 Fraction of Inspired Oxygen 100 SaO2/FiO2 Ratio 91 Oxygen Delivery Method Heated High Flow,Non -Rebreather Oxygen Flow Rate 60 Narrative Exam Narrative: surrogate for full exam is primary team Const Other: ill appearing Resp Other: tachypenic Quality TeleICU VTE Deep Vein Thrombosis/Pulmonary Embolism Present on Admission: No Assessment & Plan Assessment and plan (1) Acute respiratory failure with hypoxia: Status: Acute (2) COVID-19 virus infection: Status: Acute (3) Adenocarcinoma of lung: Status: Acute (4) Hypertension: Qualifiers: Hypertension type: essential hypertension Qualified Code(s): I10 - Essential (primary) hypertension Status: Chronic (5) Diabetes: Qualifiers: Diabetes mellitus type: type 2 Diabetes mellitus snf insulin use: without cottage master use Diabetes mellitus complication status: without complication Qualified Code(s): E11.9 - Type 2 diabetes mellitus without complications Status: Chronic (6) ARDS survivor: Status: Acute Plan continue HFNC and nrbm self proning as toelrated incentive spirometry trend abg would avoid bipap given secretion load can conitnue ativan for anxiety / air hunger as family/pt worried about delirium with morphine dvt/gi ppx start baricitinib Pt is DNI, but cpr ok, does not want intubation udner any circumstance total critical care time = 35 min Time Spent With Patient Time with patient: 30 to 49 minutes with 50% spent counseling/coordinating care
[2022-07-13] MEDS: BARICITINIB 2 MG TABLET 4 MG PO (11:10)
--- NOTE | 2022-07-13 11:37 | PM.PN.1 ---
Subjective Subjective Date Patient Seen: 07/13/22 Interval history: The pt did quite well yesterday when proned. He tolerated it for 4 hours. O2 saturations marine to up to 97%. He and his family deny any specific concerns today. The pts [id number], who is an ICU nurse, has contacted the ICU on multiple occasions. She questioned if the pt should be receiving Seroquel in the evenings to help with delirium. The pt has had some mild confusion in the evening, but no agitation. She also feels it would be helpful to have a broad family meeting, including the pts mother, siblings, , and children to discuss the pts current health status and potential outcomes. His mother and siblings are set to arrive around 6pm this evening. Exam Vital Signs (past 8 hours): - 07/13/22 04:00 07/13/22 04:00 07/13/22 05:00 Temperature 98.1 F Pulse Rate 67 68 Respiratory Rate 32 H 27 H Blood Pressure 93/64 Pulse Oximetry 91 91 Oxygen Delivery Method Oxygen Flow Rate 07/13/22 05:01 07/13/22 05:01 07/13/22 06:00 Temperature Pulse Rate 68 Respiratory Rate 33 H Blood Pressure 105/62 111/70 Pulse Oximetry 91 Oxygen Delivery Method Oxygen Flow Rate 07/13/22 06:00 07/13/22 08:00 07/13/22 07:00 Temperature Pulse Rate 97 H Respiratory Rate 36 H Blood Pressure 95/53 L Pulse Oximetry 86 L Oxygen Delivery Method Heated High Flow Non -Rebreather Oxygen Flow Rate 07/13/22 07:00 07/13/22 08:00 07/13/22 08:00 Temperature 97.2 F L Pulse Rate 94 H 99 H Respiratory Rate 40 H 38 H Blood Pressure 115/68 Pulse Oximetry 88 L 87 L Oxygen Delivery Method Oxygen Flow Rate 60 07/13/22 09:00 07/13/22 09:00 07/13/22 09:00 Temperature Pulse Rate 101 H 99 H Respiratory Rate 32 H 35 H Blood Pressure 117/69 Pulse Oximetry 90 L 87 L Oxygen Delivery Method Oxygen Flow Rate 07/13/22 10:00 07/13/22 10:00 07/13/22 11:00 Temperature Pulse Rate 113 H Respiratory Rate 32 H Blood Pressure 110/75 128/76 Pulse Oximetry 87 L Oxygen Delivery Method Oxygen Flow Rate 07/13/22 11:00 Temperature Pulse Rate 118 H Respiratory Rate Blood Pressure Pulse Oximetry 81 L Oxygen Delivery Method Oxygen Flow Rate Fraction of Inspired Oxygen 100 SaO2/FiO2 Ratio 91 Oxygen Delivery Method Heated High Flow,Non -Rebreather Oxygen Flow Rate 60 Narrative Exam Narrative: Gen: NAD, sitting in bed, oxygen in place, speaking in very short sentences CV: RRR, no murmurs Resp: coarse breath sounds without crackles throughout, improved from yesterday, no wheezes, air movement improved Abd: decreased bowel sounds, soft, nontender, nondistended Ext: trace edema bilaterally Objective Labs 07/13/22 04:10 07/13/22 04:10 Labs: Laboratory Results - last 24 hr 07/12/22 07/12/22 07/13/22 11:45 12:01 04:10 WBC 9.9 RBC 4.52 Hgb 13.5 Hct 39.5 L MCV 87.4 MCH 29.8 MCHC 34.1 RDW 13.6 Plt Count 315 Neut % (Auto) 85.8 H Lymph % (Auto) 7.5 L [place] % (Auto) 5.0 Eos % (Auto) 0.8 L Baso % (Auto) 0.9 Neut # (Auto) 8500 H Lymph # (Auto) 700 L [place] # (Auto) 500 Eos # (Auto) 100 Baso # (Auto) 100 ABG pH 7.40 ABG pCO2 46.3 H ABG pO2 60 L ABG HCO3 29 H ABG Total CO2 30 H ABG O2 Saturation 90 L ABG Base Excess 4.0 H FiO2 100 Sodium Potassium Chloride Carbon Dioxide BUN Creatinine Estimated GFR BUN/Creatinine Ratio Glucose Calcium Total Bilirubin AST ALT Alkaline Phosphatase Total Protein Albumin Globulin Albumin/Globulin Ratio Procalcitonin 0.13 07/13/22 04:10 WBC RBC Hgb Hct MCV MCH MCHC RDW Plt Count Neut % (Auto) Lymph % (Auto) [place] % (Auto) Eos % (Auto) Baso % (Auto) Neut # (Auto) Lymph # (Auto) [place] # (Auto) Eos # (Auto) Baso # (Auto) ABG pH ABG pCO2 ABG pO2 ABG HCO3 ABG Total CO2 ABG O2 Saturation ABG Base Excess FiO2 Sodium 132 L Potassium 4.3 Chloride 97 L Carbon Dioxide 33 H BUN 24 H Creatinine 0.57 L Estimated GFR > 60 BUN/Creatinine Ratio 42.1 H Glucose 120 H Calcium 8.6 Total Bilirubin 0.4 AST 23 ALT 24 Alkaline Phosphatase 57 Total Protein 6.2 L Albumin 3.0 L Globulin 3.2 Albumin/Globulin Ratio 0.9 L Procalcitonin PFSH Medical History Adenocarcinoma of right lung, stage 4 Adrenal insufficiency BPH w urinary obs/LUTS Chest wall pain following surgery COVID-19 Diabetes History of colonic polyps Hypertension Shoulder impingement Tobacco consumption Surgical History H/O hand surgery (~2013) H/O shoulder surgery (~1997) History of lung surgery History of vascular access device Family History Father Prostate cancer Social History household members: spouse Smoking Status: Former smoker alcohol intake: current substance use type: does not use Assessment & Plan Assessment & Plan narrative: Pt is a 67yo man with stage 4 lung cancer, DM type 2, and HTN who presented with worsening SOB, found to have acute respiratory failure with COVID. 1) Acute hypoxic respiratory failure: Due to COVID in addition to underlying lung cancer. Pt did well with proning yesterday, but remains on maximum oxygen therapies with nonrebreather and HHFNC. Very concerning for further decompensation. - Continue Dexamethasone, after review of administrations is actually due for 2 more doses - Proning as tolerated, with Ativan to be given prior. Goal of 4-6 hours today. - Continue IS as able - Continue oxygen supplementation - Start Baricitinib as per Durability Technician - Empiric antibiotics given last night due to increased consolidation on CXR, however d/c'ed this morning with negative procalcitonin. In agreement with not continuing antibiotic therapy for now. - Again discussed code status with pt and family, as did nursing. The pt does not want intubation under any circumstance, even coding, but does desire CPR. He expressed understanding that CPR can be quite traumatic, and would unlikely be successful in his clinical picture. - Pts family does not desire morphine for air hunger for now, as concerned about delirium - Pts family member requesting a family meeting tomorrow. Will pass along this information to Dr Flaherty, who will be rounding tomorrow. 2) Anxiety: Bupropion initiated yesterday. - Continue Bupropion - Ativan PRN - On Precedex drip 3) Malnutrition: Pt down 15lbs since admission, very limited PO intake - Nutrition consult 4) DM Type 2: Blood sugars stable - Continue insulin at current dosing, will likely need adjustment once off Dexamethasone 5) Lung cancer: Therapy currently on hold 6) Constipation: - Continue bowel regimen Code: DNI but does desire CPR DVT ppx: Lovenox FEN: As tolerated, nutrition consulted as above Dispo: Pt remote from possible discharge. Quality VTE Deep Vein Thrombosis/Pulmonary Embolism Present on Admission: No
[2022-07-13] MEDS: DEXAMETHASONE 4 MG/ML VIAL 6 MG IV (12:17)
--- NOTE | 2022-07-13 13:32 | PC.NURSE ---
1130 Patient heavily assisted in proning by this RN, Lita, RN, and Jean Claude, [employer]. bilateral arms are in swim position and left leg bent with a pillow placed underneath, Head turned to the right. HFNC 60L/100% remains in place with Nonrebreather at 15L over that. Dr. Rao also present and assisted with proning. Pt is ST 120, O2 sat dropped as low as 69%, RR in the 30's. O2 sat climbed to 88% slowly over 15 min.
[2022-07-13] MEDS: dexmedeTOMIDine in 0.9 % NaCL 400 MCG/100 ML PLAST..BAG 19.5 MCG IV ×2 (15:36→20:16)
--- NOTE | 2022-07-13 19:22 | PC.NURSE ---
1500 Discussed visitor policy and patient's condition with each visitor today. Told visitors to only come in two at a time, that proning is aggressive care and that patient must be sedated in order to tolerate it and that his environment should match the seriousness of the patient's condition and that he needs decreased stimuli. this nurse explained that anything the patient does causes his oxygen level to drop and that he takes a long time to recover. Patient had three friends visit about 1500. Patient's O2 sat began to drop. This nurse headed into the room to find the three visitors around the bed and the patient trying to move himself. The patient removed his HHFNC and non rebreather. O2 sat dropped to 60%. This nurse replaced his HHFNC and non rebreather and resituated him. This nurse answered all of the visitors questions and repeated the previous points regarding visitors and the patient's environment. The three visitors left and patient's O2 sat climbed to 88%. 1700 Patient assisted in turning to right side. O2 sat up to 93%. Again multiple visitors entering room despite discussing the need for just two visitors at a time, with low stimuli. Patient's brother Jean will stay tonight and verbalized understanding to limit stimuli.
--- NOTE | 2022-07-13 20:43 | PM.ICURNDS ---
- :: This patient was seen via real time interactive two-way audiovisual telecommunication. Note: Patient remains on precedex and HFNC 60/95%. CXR reviewed and showed bilateral airspace disease. Tolerated proning, currently supine. Diuresing well, tolerating PO diet. Continue curry titrate FiO2 to maintain goal SpO2 > 88%. D/w bedside RN.
--- NOTE | 2022-07-13 23:24 | PC.NURSE ---
Addendum entered by Leila Leary R.N. 07/14/22 02:39: Patient with no urine in condom cath. bladder scan done with result of between 400-500cc of urine in bladder. gee catheter placed without difficulty and 500cc of urine removed immediately. Original Note: Patient awakening slowly, but O2 sats dripping as soon as patient is awake. Patient reassured and medicated but O2 sats remain low 82-86%. Patient given time to recuperate, but O2 sats not improving above 87%, Patient slowly taken out of prone position and into semi-fowlers with improved sats immediately. 87-88%. Patient medicated once again and O2 sats remaining at 88%.
[2022-07-14] VITALS (28 sets, daily range): BP systolic 114–188; BP diastolic 57–85; PULSE 68–150; RESP 22–42; TEMP 36.4–37.1; O2SAT 84–95
[2022-07-14] MEDS: dexmedeTOMIDine in 0.9 % NaCL 400 MCG/100 ML PLAST..BAG 24.375 MCG IV ×3 (00:25→08:57)
[2022-07-14] MEDS: LORazepam 2 MG/ML INJ IV ×6 (00:54→22:14)
[2022-07-14] MEDS: MORPHINE 4 MG/ML INJ IV (01:50)
--- NOTE | 2022-07-14 07:46 | P.PN_ITS ---
Subjective Subjective Date Patient Seen: 07/14/22 Time Patient Seen: 07:47 Interval history: Patient essentially the same. Waxes and wanes with his hypoxia. Was able to self prone for several hours at a time and clearly was improved when doing this. Really quite somnolent this morning and I did not tried to arouse him. He had some lorazepam overnight and continues on the Precedex. Apparently had some increased delirium last evening pulling off his non-rebreather mask and could not be redirected which is when the lorazepam was given. Discussions have been ongoing about goals of care and code status etcetera. Patient had long discussion with tele mine motor engineer followed by long discussion with Dr. Rao (in my absence) regarding his code status. He is pretty clear that he does not want to be intubated, which I think makes great sense in the overall picture with the underlying lung cancer etcetera. However he still wants to be fully resuscitated otherwise which of course does not make a lot of sense. If he has a respiratory related problem that results in cardiac issues there is no medical indication for CPR etcetera when the cardiac issues are secondary to respiratory failure. However we been unable to come to an agreement about this. Apparently family members are unclear as to patient's overall prognosis etcetera. There been suggestions from some family members who have medical background about intervening with certain therapies etcetera. Apparently they are looking for a gathering to discuss current status etcetera Exam Vital Signs (past 8 hours): - 07/14/22 00:00 07/14/22 00:01 07/14/22 00:01 Temperature 97.6 F Pulse Rate 70 70 Respiratory Rate 25 H 24 Blood Pressure 118/58 L Pulse Oximetry 93 93 07/14/22 01:00 07/14/22 01:00 07/14/22 02:00 Temperature Pulse Rate 71 Respiratory Rate 25 H Blood Pressure 120/63 117/60 Pulse Oximetry 91 07/14/22 02:00 07/14/22 03:00 07/14/22 03:00 Temperature Pulse Rate 75 69 Respiratory Rate 24 25 H Blood Pressure 118/64 Pulse Oximetry 85 L 92 07/14/22 04:00 07/14/22 04:00 07/14/22 01:00 Temperature Pulse Rate 69 76 Respiratory Rate 25 H 24 Blood Pressure 120/60 Pulse Oximetry 92 90 L 07/14/22 05:00 07/14/22 05:00 07/14/22 05:00 Temperature Pulse Rate 69 69 Respiratory Rate 24 22 Blood Pressure 119/57 L Pulse Oximetry 92 90 L 07/14/22 06:00 07/14/22 06:00 Temperature Pulse Rate 70 Respiratory Rate 38 H Blood Pressure 123/57 L Pulse Oximetry 88 L Fraction of Inspired Oxygen 100 SaO2/FiO2 Ratio 91 Oxygen Delivery Method Heated High Flow,Non -Rebreather Oxygen Flow Rate 60 Objective Labs 07/13/22 04:10 07/13/22 04:10 PFSH Medical History Adenocarcinoma of right lung, stage 4 Adrenal insufficiency BPH w urinary obs/LUTS Chest wall pain following surgery COVID-19 Diabetes History of colonic polyps Hypertension Shoulder impingement Tobacco consumption Surgical History H/O hand surgery (~2013) H/O shoulder surgery (~1997) History of lung surgery History of vascular access device Family History Father Prostate cancer Social History household members: spouse Smoking Status: Former smoker alcohol intake: current substance use type: does not use Assessment & Plan Assessment & Plan narrative: 1. Respiratory failure-patient continues overall to be relatively stable. He has tolerated some proning which is been helpful. He is come to the end fully of the therapies for COVID (remdesivir and dexamethasone). No evidence of secondary infection based on lab work etcetera. Continue current therapies without change. Patient was started on baricitinib by the tele mine motor engineer over the weekend. Based on review of discussions patient continues to want to focus on comfort over everything else. This is unchanged from my discussions with him last week. 2. Diabetes-blood sugars definitely better. Continue monitor blood sugars may need to reduce insulin now that he is off the dexamethasone. 3. Fluids/electrolytes/renal-renal function and electrolytes remained normal 4. Lung cancer-as noted previously, therapy on hold until has recovered from this illness to some extent. As previously noted Oncology predicted his chance of responding to chemo that is anticipated as something up to 30%. Response would result in slowing of progression of his cancer without cure. This would result in overall increase in life span. 5. Anxiety-continue on current medications without change. 6. Goal of care-met with spouse, patient's brother, patient's mother and other members of the family. Answered all of their questions at length. They want to focus on him fighting through this which is been his desire all along and I concur completely. Also discussed the inability to predict the next 24 hours or the next 3 days or the next 10 days or any of that. Discussed that he is maxed out on his therapies as far as respiratory goes and he has been very clear about not wanting to be intubated and we will not be going down that road if necessary. He has been stable at current levels even though they are really maximum out his respiratory support short of intubation he is also not clearly gone downhill which I take as a good sign. We will continue to focus on managing his respiratory needs as much as possible short of intubation. Continue focus on comfort. I would like to see him more awake and alert able to prone at times able to take oral nutrition etcetera. Will back off a bit on medications and I have discussed this with nursing staff as well Time Spent With Patient Time with patient: 30 to 49 minutes with 50% spent counseling/coordinating care (Counseling primarily with family members present as noted in today's progress note) Quality VTE Deep Vein Thrombosis/Pulmonary Embolism Present on Admission: No
--- NOTE | 2022-07-14 09:56 | PM.PN.EICU ---
Subjective Subjective IF CAMERA ACTIVATED, patient seen via real-time interactive audiovisual communication: Camera activated Consent obtained for tele-security police care: Yes Patient Location: ICU Provider location (State): [place] Other participants/roles: RN Interval history: Pt remains on max HFNC and NRBM. his oximetry is variable from low 80s to low 90s. limited code status remians in effect. Current Medications Current Medications Medications: Home Medications sildenafil 100 mg tablet 50 - 100 mg PO DAILY PRN sexual activity #10 tabs 09/13/21 [Rx Confirmed 07/03/22] losartan 25 mg tablet 25 mg PO DAILY #90 tabs 10/14/21 [Rx Confirmed 07/03/22] aspirin 81 mg capsule 81 mg PO DAILY 06/17/22 [History Confirmed 07/03/22] tamsulosin 0.4 mg capsule 0.4 mg PO DAILY #90 caps 06/19/22 [Rx Confirmed 07/03/22] gabapentin 300 mg capsule 300 mg PO .COMPLEX #90 caps 06/25/22 [Rx Confirmed 07/03/22] prednisone 10 mg tablet 10 mg PO DAILY 06/25/22 [History Confirmed 07/03/22] dextromethorphan HBr 15 mg capsule 15 mg PO .HS PRN cough #60 caps 06/26/22 [Rx Confirmed 07/03/22] guaifenesin 1,200 mg tablet, extended release 12 hr 1,200 mg PO BID #60 tabs 06/26/22 [Rx Confirmed 07/03/22] hydroxyzine HCl 50 mg tablet 100 mg PO QID PRN itching #180 tabs 06/26/22 [Rx Confirmed 07/03/22] ipratropium 20 mcg-albuterol 100 mcg/actuation mist for inhalation (Combivent Respimat) 1 puff inhalation Q4H PRN cough #4 grams 06/26/22 [Rx Confirmed 07/03/22] ondansetron 4 mg disintegrating tablet 4 mg PO TID #90 tabs 06/26/22 [Rx Confirmed 07/03/22] naloxone 4 mg/actuation nasal spray (Narcan) 4 mg intranasal Q3M PRN opioid overdose #2 ea 07/01/22 [Rx Confirmed 07/03/22] oxycodone 10 mg tablet 10 - 20 mg PO Q4H PRN pain #90 tabs 07/01/22 [Rx Confirmed 07/03/22] wdxgmtyvlwcyzqy-ptbghdz-FB 30 mg-10 mg-100 mg/5 mL oral syrup 5 ml PO Q4H PRN cough #473 mL 07/01/22 [Rx Confirmed 07/03/22] docusate sodium 100 mg capsule 200 mg PO BID PRN opioids #180 caps 07/02/22 [Rx Confirmed 07/03/22] fentanyl 37.5 mcg/hour transdermal patch 1 patch transdermal Q72H #5 ea 07/02/22 [Rx Confirmed 07/03/22] sennosides 8.6 mg tablet (Natural Senna Laxative) 8.6 mg PO BID PRN constipation #60 tabs 07/02/22 [Rx Confirmed 07/03/22] Visit Medications (administered) Generic Name Dose Route Start Last Admin Trade Name Freq PRN Reason Stop Dose Admin Acetaminophen 650 mg 07/03/22 16:35 07/12/22 18:27 Acetaminophen 325 Mg Tablet PO 650 mg Q6H PRN Administration Fever/Mild Pain (1-3) Albuterol/Ipratropium 3 ml 07/03/22 16:52 07/09/22 01:33 Albuterol/Ipratropium 3 Ml Ampul INH 3 ml Q4H PRN Administration cough Ascorbic Acid 1,000 mg 07/06/22 10:45 07/13/22 08:08 Ascorbic Acid 500 Mg Tablet PO 1,000 mg DAILY CINDI Administration Aspirin 81 mg 07/04/22 09:00 07/13/22 08:07 Aspirin Ec 81 Mg Tablet PO 81 mg DAILY CINDI Administration Benzonatate 100 mg 07/03/22 20:42 07/13/22 10:00 Benzonatate 100 Mg Capsule PO 100 mg TID PRN Administration Cough Bupropion HCl 100 mg 07/11/22 09:00 07/13/22 21:46 Bupropion Sr 100 Mg Tab PO Not Given BID CINDI Docusate Sodium 200 mg 07/03/22 16:48 07/13/22 08:07 Docusate 100 Mg Capsule PO 200 mg BID PRN Administration opioids Enoxaparin Sodium 40 mg 07/03/22 21:00 07/13/22 20:16 Enoxaparin 40 Mg/0.4 Ml Syringe SUBCUT 40 mg BID CINDI Administration Fentanyl 25 mcg 07/03/22 17:00 07/12/22 17:03 Fentanyl 25 Mcg/Patch TOP 25 mcg Q72H CINDI Administration Gabapentin 300 mg 07/03/22 21:00 07/13/22 21:46 Gabapentin 300 Mg Capsule PO Not Given TID [facility] Guaifenesin/Codeine Phosphate 10 ml 07/03/22 20:42 07/13/22 05:54 Codeine/Guaifenesin Liquid 5ml Udc PO 10 ml Q6H PRN Administration Cough dexmedeTOMIDine in 0.9 % NaCL 400 mcg in 100 mls @ 4.875 mls/hr 07/04/22 21:15 07/14/22 08:57 Precedex IV 1 mcg/kg/hr TITRATE CINDI 24.375 mls/hr Administration Protocol 0.2 MCG/KG/HR Insulin Glargine 20 unit 07/08/22 09:00 07/13/22 08:06 Insulin Glargine 100 Unit/Ml 3ml Pen SUBCUT 20 unit DAILY CINDI Administration Insulin Human Lispro 0 unit 07/03/22 21:00 07/14/22 08:56 Insulin Lispro 100 Unit/Ml 3ml Vial SUBCUT Not Given ACHS [facility] Protocol Lorazepam 0.5 mg 07/09/22 08:40 07/11/22 10:11 Lorazepam 2 Mg/Ml Inj IV 0.5 mg Q2HR PRN Administration Anxiety Lorazepam 1 mg 07/09/22 08:43 07/12/22 02:51 Lorazepam 2 Mg/Ml Inj IV 1 mg Q2HR PRN Administration severe anxiety Lorazepam 2 mg 07/10/22 08:44 07/14/22 05:48 Lorazepam 2 Mg/Ml Inj IV 2 mg Q1H PRN Administration severe dyspnea Melatonin 9 mg 07/08/22 21:00 07/13/22 21:46 Melatonin 3 Mg Tablet PO Not Given BEDTIME [facility] Morphine Sulfate 4 mg 07/08/22 06:47 07/14/22 01:50 Morphine 4 Mg/Ml Inj IV 4 mg Q3H PRN Administration Pain, Severe (7-10) Oxycodone HCl 10 mg 07/03/22 16:35 07/05/22 16:51 Oxycodone Ir 10 Mg Tablet PO 10 mg Q3H PRN Administration Pain, Severe (7-10) Pantoprazole Sodium 40 mg 07/05/22 07:00 07/13/22 05:[address] 40 Mg Tablet PO 40 mg 0700 [facility] Administration Sennosides 8.6 mg 07/03/22 16:48 07/13/22 07:37 Sennosides 8.6 Mg Tablet PO 8.6 mg BID PRN Administration constipation Sodium Chloride 10 ml 07/03/22 21:07 07/05/22 20:39 Sodium Chloride 0.9% Flush IV 10 ml PRN PRN Administration Flush Sodium Chloride 10 ml 07/04/22 09:00 07/13/22 21:47 Sodium Chloride 0.9% Flush IV Not Given BID [facility] Tamsulosin HCl 0.4 mg 07/04/22 09:00 07/13/22 08:08 Tamsulosin 0.4 Mg Capsule PO 0.4 mg DAILY CINDI Administration Vitamin D 2,000 unit 07/06/22 10:45 07/13/22 08:07 Cholecalciferol (Vitamin D3) 1,000 Unit Tablet PO 2,000 unit DAILY CINDI Administration Objective Ventilator Parameters: Ventilator Settings FiO2 100 Labs 07/13/22 04:10 07/13/22 04:10 Exam Vital Signs (past 8 hours): - 07/14/22 02:00 07/14/22 02:00 07/14/22 03:00 Pulse Rate 75 Respiratory Rate 24 Blood Pressure 117/60 118/64 Pulse Oximetry 85 L 07/14/22 03:00 07/14/22 04:00 07/14/22 04:00 Pulse Rate 69 69 Respiratory Rate 25 H 25 H Blood Pressure 120/60 Pulse Oximetry 92 92 07/14/22 05:00 07/14/22 05:00 07/14/22 05:00 Pulse Rate 69 69 Respiratory Rate 24 22 Blood Pressure 119/57 L Pulse Oximetry 92 90 L 07/14/22 06:00 07/14/22 06:00 07/14/22 08:59 Pulse Rate 70 72 Respiratory Rate 38 H 24 Blood Pressure 123/57 L Pulse Oximetry 88 L 88 L Fraction of Inspired Oxygen 100 SaO2/FiO2 Ratio 91 Oxygen Delivery Method Heated High Flow,Non -Rebreather Oxygen Flow Rate 60 Narrative Exam Narrative: Surrogate for full exam is primary team Const Other: remains ill appearing on HFNC Resp Other: tachypenic Quality TeleICU VTE Deep Vein Thrombosis/Pulmonary Embolism Present on Admission: No Assessment & Plan Assessment and plan (1) Acute respiratory failure with hypoxia: Status: Acute (2) COVID-19 virus infection: Status: Acute (3) Adenocarcinoma of lung: Status: Acute (4) Hypertension: Qualifiers: Hypertension type: essential hypertension Qualified Code(s): I10 - Essential (primary) hypertension Status: Chronic (5) Diabetes: Qualifiers: Diabetes mellitus type: type 2 Diabetes mellitus custodial insulin use: without custodial use Diabetes mellitus complication status: without complication Qualified Code(s): E11.9 - Type 2 diabetes mellitus without complications Status: Chronic (6) ARDS survivor: Status: Acute Plan continue HFNC and nrbm self proning as toelrated incentive spirometry trend abg would avoid bipap given secretion load can conitnue ativan for anxiety / air hunger as family/pt worried about delirium with morphine dvt/gi ppx start baricitinib Pt is DNI, but cpr ok, does not want intubation udner any circumstance total critical care time = 35 min Time Spent With Patient Time with patient: 30 to 49 minutes with 50% spent counseling/coordinating care
[2022-07-14] MEDS: INSULIN GLARGINE 100 UNIT/ML 3ML PEN 20 UNIT SUBCUT (10:20)
[2022-07-14] MEDS: ENOXAPARIN 40 MG/0.4 ML SYRINGE SUBCUT ×2 (10:22→20:12)
--- NOTE | 2022-07-14 11:19 | PC.NURSE ---
Addendum entered by Melanie Delacruz R.N. 07/14/22 17:23: Pt out of semi-prone position at approx 1630 per pt request, reported unable to tolerate position any longer, sat up in bed and attempted to remove oxygen. Reassured and reoriented to hospital setting which was successful. SpO2 low 80s/high 70s with no improvement with rest, repositioned to right side to optimize oxygenation and SpO2 up to 83-85% persistently. ST in the 110s to 120s. RR in the 30-40s and very labored. Pt denies pain. Precedex continues. Dr. Flaherty updated on all the above via phone. Family continues at bedside. Addendum entered by Melanie Delacruz R.N. 07/14/22 12:54: Pt assisted to side-lying/semi-prone position. Pt unable to tolerate full prone, becomes agitated and reports position is too uncomfortable. Pt lethargic, minimally interactive with family, able to make needs known. Unable to safely swallow at this time, chokes/coughs with sips of water. Declines to take any PO pills in addition to not demonstrating a safe swallow. SpO2 93-94% when semi-prone, up from 86%. Precedex being titrated down to decrease lethargy while also maintaining comfort. Original Note: Day Shift Note Patient remains on maxed settings heated HFNC (60L and 100% FiO2) along with NRB 15L, SpO2 84-92%. Pt is drowsy and mostly sleeping, awakens briefly to voice, not following commands at this time. Dr. Flaherty at bedside this morning with pt's family. Plan is to continue the course at this time and to allow Ativan to wear off and see if patient is able to take POs as well as to attempt proning. Reviewed with Dr. Crenshaw during multidisciplinary rounds, no new orders. Update to [id number] Deborah via phone. Reiterated plan for day with pt's (Tahira), sister (Lynsey), and mother (Rupal) who were at bedside, acknowledged understanding.
[2022-07-14] MEDS: dexmedeTOMIDine in 0.9 % NaCL 400 MCG/100 ML PLAST..BAG 19.5 MCG IV ×2 (12:45→17:57)
--- NOTE | 2022-07-14 13:24 | DIET.CONS ---
Dietary Consultation Note Admission Date: 07/03/2022 15:54 Assessment: 67y M admitted for covid PNA with respiratory failure on lung cancer consulted to RD for severe unintentional weight loss by physician. Pt ICU status on maximal heated high flow oxygen with non-rebreather and intermittent proning to keep oxygen saturations >90%. Pt has been receiving ONS Ensure and fruit at meals, some nourishments brought in by family. Per ICU nurse this morning, pt lethargic and coughing on sips water. They are actively reducing some medications to see if improves mentation. Pt has been on diuretics during hospital stay. Weighed 98kg upon admission, some of his noted weight loss certainly that added fluid, however, upon chart review, pts UBW consistent 98-105kg, with current BW 91kg. Pt obese however, this puts him at greater risk of accelerated loss of lean body mass and deconditioning. Pt with limited code status, does not want intubation. Pt not good candidate for artificial nutrition via NG tube as this will reduce effective delivery of oxygen by breaking mask seal. Regarding TPN, due to current fluid overload status and tenuous oxygen saturations despite full oxygen support, pt at high risk for pulmonary decompensation limiting possible benefit. Ht: 177.8 cm Wt: 91 kg (-7.7% in 11d, severe) BMI: 30.8 UBW: 100kg Last BM: 07/08/22 (07/08/22 22:21) MNA: 12 Gustavo Score: 13 Diet: 07/03/22 Dinner General (Regular) Diet Diet Modifications: Nutrition Percent Meal Consumed 25% 07/13/22 11:00 Labs: RBC 4.52 X10^6/uL (4.5-5.9) 07/13/22 04:10 Hgb 13.5 g/dL (13.5-17.5) 07/13/22 04:10 Hct 39.5 % (41-53) L 07/13/22 04:10 Creatinine 0.57 mg/dL (0.66-1.25) L 07/13/22 04:10 Lactate 2.3 mmol/L (0.7-2.1) H 07/03/22 15:30 NT-Pro-B Natriuret Pep 104 pg/mL (<125) 07/03/22 13:00 Nutrition Diagnosis: Severe Acute Protein Calorie Malnutrition r/t inadequate oral intake and increased work of breathing aeb 7.7% unintentional weight loss in 11d (severe), pt with respiratory failure on heated high flow and non-rebreather mask at highest settings, pt's POs meeting <50% EER despite ONS intervention. -The patient is at much higher risk for medical and surgical complications because of malnutrition. This increases the difficulty and complexity of medical and surgical interventions and increases the chances of poor outcomes such as morbidity and mortality. Interventions: 1. Once safe to consume liquid diet, kitchen to send high protein/high kcal ONS- Ensure Enlive and Ensure Max at meals to support nutrition status with as little work necessary by patient. Recommend frequent small sips throughout day. ONS combined provide 70% and 100% protein needs. EER: 1800-2,200kcals (20-25kcal/kg), 90-110g PRO (0.8-1.2g/kg per PCM and hx CKD) Monitoring/Evaluations: POs, ONS tolerance, POC Electronically Signed by: Jo Estarda 07/14/22 13:24 Clinical Dietitian [address] [id number]
[2022-07-14] MEDS: LORazepam 2 MG/ML INJ 1 MG IV (18:06)
--- NOTE | 2022-07-14 20:04 | PM.ICURNDS ---
- :: This patient was seen via real time interactive two-way audiovisual telecommunication. Note: Pt remains on max HFNC and NRBM. his oximetry isin the low 90s, unfortunately after trial of weaning of precedex and ativan for better neuro exam, pt's HR increased to 140s and became more anxious and working to breath, he was started back on precedex and given ativan, limited code status remains in effect. Discussed with RN
[2022-07-14] MEDS: SODIUM CHLORIDE 0.9% FLUSH 10 ML IV (20:16)
[2022-07-14] MEDS: MELATONIN 3 MG TABLET 9 MG PO (20:16)
[2022-07-14] MEDS: dexmedeTOMIDine in 0.9 % NaCL 400 MCG/100 ML PLAST..BAG 36.563 MCG IV (21:20)
--- NOTE | 2022-07-14 22:41 | PC.NURSE ---
Addendum entered by Yasmeen Swan R.N. 07/14/22 23:14: Clarification: The statement below refers to this nurse's shifts with patient. Apparently patient agreed to bipap on 07/08 on dayshift for a couple of hours midday. Every conversation, which included education on why and how bipap might help, ended with patient stating he did not want be on bipap. Original Note: 1929 Patient is right side lying, O2 Sat is 86-88%, labored breathing, tachy 140-150, hypertensive. Pt is oriented to self, year, place - assessment limited by patient's work of breathing, can only provide 1-2 word answers. This nurse explained that giving ativan can help him tolerate lying on side and hopefully calm patient's BP and heart rate and asked if before giving him sedating medications if he agreed to attempting to prone later in the evening. He replied yeah and nodded his head affirming. Precedex drip turned up to 1.2, then 1.5 about 30 min later. Ativan 2mg IV given at 1999. 2044 Patient's sister asked about putting patient on Bipap if his oxygen saturations do not improve with increased sedation. Explained that at every offer of Bipap, and with much explanation of how Bipap could help, patient has declined Bipap. Patient's sister states that she understands, but that maybe he can tolerate bipap with sedation. This nurse reiterated that it has been against patient's wishes, but that I would discuss it with tele-icu. [id number] O2 Sat up to 90% by 2099 and up to 95% by 2199. HR still in the 140's by 2199. Ativan 2mg IV given at 2209. [address]oke [address] telephone with Dr. Galicia and discussed the prospect of bipap if patient's O2 saturations decline overnight. He states he agrees with trying bipap with patient sedated if his O2 sats were to decline to 85-86% at any point. This nurse agreed that if patient's family wants bipap, in the instance of sustained low O2 saturations, that I will educate patient on the risk of aspiration to the patient and oblige with putting patient on bipap. Currently patient's O2 sat is still 95% so changes will be made to positioning or devices at this time. Proning will be attempted first in O2 sats start to drop and sustain.
[2022-07-15] VITALS (60 sets, daily range): BP systolic 40–108; BP diastolic 19–58; PULSE 95–146; RESP 11–30; TEMP 36.6; O2SAT 67–99
[2022-07-15] MEDS: LORazepam 2 MG/ML INJ IV (00:27)
[2022-07-15] MEDS: dexmedeTOMIDine in 0.9 % NaCL 400 MCG/100 ML PLAST..BAG 36.563 MCG IV (00:56)
--- NOTE | 2022-07-15 01:39 | PM.EVENT ---
Event Note Event Note (Rapid Response, Code, or fall): Notified by RN patient is unresponsive and hypotensive. Precedex gtt stop and ordered levophed. Currently maxed out on HFNC FiO2 100% with SpO2 ~88%. Will consider a trial of BiPAP for lung recruitment. D/w NEELA Conway.
[2022-07-15] MEDS: NOREPINEPHRINE BITARTRATE/D5W 4 MG/250 ML PLAST..BAG 30 MG IV (01:44)
[2022-07-15] MEDS: NOREPINEPHRINE BITARTRATE/D5W 4 MG/250 ML PLAST..BAG 138.75 MG IV (03:18)
--- NOTE | 2022-07-15 04:04 | PC.NURSE ---
0100 BP is 113/55, O2 sat is 88%, HR 152, proned patient with assistance from Zoraida, RN, Bob, RN, Gianna, RN, and Shawn, [employer]REDD[employer] F[employer] MACH[employer] WRAP[employer]AY[employer]. Patient is unresponsive and shallow breathing. 0127 Pt's next BP 78/36 (49) and continues to be in 70's systolic. Precedex immediately stopped; attempted to get Tele ICU to camera into room, but camera in room is malfunctioning. [address] Galicia by telephone. Levo started at 30mcg/min. NEELA Pires notified Dr. Hood of patient's severe hypotension and addition of Levo. 0200 BP 100/55; O2 sat 88%, HR 152 0230 Spoke with Tyree at [facility] and verified max dose of Levo is 80mcg/min. 0235 Supined patient with same team as earlier at 0100. O2 sats dropping into low 80's. Confirmed with family that they want patient on bipap. 0240 Bipap placed on patient at 100% FiO2, 16/8, Rate of 30, tidal volume 350. O2 sat is 80% 0245 O2 sat 91%, HR159, BP 99/57, patient is unresponsive. This nurse has repeatedly stated that patient may code tonight and will not recover when we code him and do CPR, explained patient may never be able to come off of the Levophed drip, and may not become responsive. Family states they understand, but remain hopeful.
[2022-07-15] MEDS: NOREPINEPHRINE BITARTRATE/D5W 4 MG/250 ML PLAST..BAG 168.75 MG IV (05:30)
--- NOTE | 2022-07-15 06:52 | PM.PN.1 ---
Subjective Subjective Date Patient Seen: 07/15/22 Time Patient Seen: 06:53 Interval history: At end of day yesterday patient had become more hypoxic and tachycardic. Eventually patient became more responsive and was removing his non-rebreather mask etcetera. Precedex and Ativan had to be readministered. This seem to help settle patient down and improved his vital signs. However later in the evening patient became hypotensive with blood pressure in the 70s quite hypoxic with oxygen saturation in the mid 80s. He had been prone at the time and that did not seem to be helping. Precedex was discontinued tele machine filler initiated Levophed and BiPAP. BiPAP was approved by family members. Patient was improved until about an hour ago at this point. Became quite hypoxic with oxygen saturations in the low 80s sometimes high 70s heart rate increased to the 130s and blood pressure in the 80s systolic. This is on maximum dose Levophed. Continues on BiPAP which has very small inspiratory volumes attached to it at this point. Patient remains unresponsive/comatose Patient's brother and son are in the room. Exam Vital Signs (past 8 hours): - 07/14/22 23:00 07/14/22 23:00 07/15/22 02:45 Pulse Rate 145 H Respiratory Rate 28 H Blood Pressure 156/77 H Pulse Oximetry 95 Oxygen Delivery Method Fraction of Inspired Oxygen 100 07/14/22 23:00 07/15/22 05:56 07/15/22 00:00 Pulse Rate 130 H Respiratory Rate 35 H Blood Pressure Pulse Oximetry Oxygen Delivery Method High Flow Nasal Cannula Non -Rebreather Fraction of Inspired Oxygen 100 07/15/22 04:00 Pulse Rate Respiratory Rate Blood Pressure Pulse Oximetry Oxygen Delivery Method BiPAP Fraction of Inspired Oxygen Fraction of Inspired Oxygen 100 SaO2/FiO2 Ratio 91 Oxygen Delivery Method BiPAP Oxygen Flow Rate 60 Objective Labs 07/13/22 04:10 07/13/22 04:10 PFSH Medical History Adenocarcinoma of right lung, stage 4 Adrenal insufficiency BPH w urinary obs/LUTS Chest wall pain following surgery COVID-19 Diabetes History of colonic polyps Hypertension Shoulder impingement Tobacco consumption Surgical History H/O hand surgery (~2013) H/O shoulder surgery (~1997) History of lung surgery History of vascular access device Family History Father Prostate cancer Social History household members: spouse Smoking Status: Former smoker alcohol intake: current substance use type: does not use Assessment & Plan Assessment & Plan narrative: 1. Respiratory failure-patient I think has declared himself at this point. He is clearly declining and is extremely unlikely to survive this hospitalization. We have pretty much maxed out his support. He was very clear over the weekend even after multiple discussions with multiple physicians that he did not want to be intubated should come to that but that he did want everything else done. At the moment we are doing everything else. Continue with maximum therapy and maximum support as above however his prognosis is extremely poor, in my opinion. I discussed his current status with family members that are present here in the hospital and I called and spoke with his as well. She understands that he is almost certainly declining to the point where he will likely sometime later this morning. We have maximized therapies for supporting blood pressure supporting his ventilatory status including using BiPAP. He does seem to be comfortable and I think basically as I told her and the other family members his body is shutting down overall. Brain is shut down heart is in the process of shutting down as evidenced by low blood pressure and the tachycardia etcetera. Lungs are not responding to the BiPAP. Everyone seems to be in agreement that there is nothing more that can be done and that his disease process seems to be driving him and he is likely going to Given all of that information I discussed with brother and with son and then again with patient's spouse the concept of doing CPR not doing CPR I tickle cardioversion etcetera. Seems likely to me that at some point in the very near term future he will have a complete respiratory arrest and or a cardiac arrest secondary to his severe respiratory issues and hypotension. Given the irreversible nature of the respiratory issues it would be completely futile to attempt advanced resuscitative efforts such as CPR and electrical cardioversion to restart his heart as it were etcetera. I described this in lay terms as best I could to the family and everyone that I spoke with including his spouse are in agreement that that is not something that we should do. Therefore I have changed his code status to do not intubate no CPR and no cardioversion. Continue with medications as we are. Overall patient's prognosis remains extremely poor and he is unlikely to survive this hospitalization, in my opinion, see note above. Quality VTE Deep Vein Thrombosis/Pulmonary Embolism Present on Admission: No
[2022-07-15] MEDS: NOREPINEPHRINE 8 MG in DEXTROSE 5% IN WATER 250 ML 47 MG IV (07:47)
--- NOTE | 2022-07-15 10:04 | PC.NURSE ---
Addendum entered by Andres Orosco R.N. 07/15/22 12:56: Patient's son and Mark Anthony and whole family in agreement at approximately 1118 to stop levophed gtt. Patient with agonal breathing. No heart beat, asystole and no respirations at 1120am. Dr. Flaherty notified. Addendum entered by Andres Orosco R.N. 07/15/22 11:01: Boilers Inspector arrived at patient's bedside at this time, patient surrounded by family. HR 100, BP 52/22, unable to read pulse ox. Addendum entered by Andres Orosco R.N. 07/15/22 10:28: Patient's son Mark Anthony asking this RN further questioning this morning regarding neurology consult, and EEG to confirm brain activity and help bring closure to the family. Dr. Flaherty notified and came back to bedside to meet with family again and assess patient. Patient remains unresponsive. No corneal reflex, pupil reactivity or response to sternal rub noted with Dr. Flaherty at bedside. Patient's family does not want monitoring removed at this time, but requests alarms to be silenced. Jefe CUNNINGHAM came to bedside and spoke with family and attempted to silence those alarms that he could per their request. Patient's blood pressures and spo2 continue to decline and lower. No new medical interventions at this time, as per Dr. Flaherty we can only start to remove things if those are family wishes. Original Note: 805am Attempted to reach Dr. Flaherty this morning first thing as patients vital signs continue to decline. Sp02 in 80% on BIPAP. Patient unresponsive, no response to pain or other stimuli. Norepinephrine gtt infusing as ordered, concentration of bag changed to double concentration this morning and dosing confirmed with Lakshmi in pharmacy (MAR documentation/pump not congruent with current policy of mcg/kg/min and pharmacist updated and aware). Dr. Flaherty to bedside and reviewed plan of care and code status with patient's brother and son at bedside this morning, then again with and patient's mother and other family as they arrived. COntinue to monitor patient and provide support to family.
[2022-07-15] MEDS: NOREPINEPHRINE 8 MG in DEXTROSE 5% IN WATER 250 ML 88 MG IV (10:38)
--- NOTE | 2022-07-15 12:10 | PM.DDS.1 ---
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 COVID pneumonia 2. Respiratory failure 3. Adenocarcinoma of the lung contributing to respiratory failure 4. Diabetes type 2 Hospital Course: Patient was admitted to the hospital ICU because of his severe hypoxia dyspnea etcetera. His symptoms were felt to be primarily due to repeat COVID infection causing pneumonia with respiratory failure. He was treated with the usual medications including remdesivir and dexamethasone for the usual time course. Patient's respiratory status slowly declined eventually requiring full support with high-flow nasal oxygen maximum concentration in addition to non-rebreather mask. Patient was tried off and on with BiPAP as well which seem to intermittently to be helpful although very poorly tolerated by patient. Long discussions were held with patient and patient's spouse regarding goals of care given his underlying lung cancer. It was felt as though if patient were to require intubation the likelihood of his significant recovery based primarily on the presence of the lung cancer would be extremely small and patient was very clear on a consistent basis that he would not want to be intubated. This is supported strongly by his spouse and the remainder of his family. Unfortunately despite maximum therapies as above patient is slowly declined from a respiratory standpoint. He had episodic increased dyspnea and anxiety which was treated lorazepam which seem to help initially but then patient became less responsive. Patient at times tried proning which seem to help temporarily but at times also was not all that beneficial not well tolerated by patient Patient's subsequently became hypotensive required initiation Levophed for blood pressure support. However this failed to completely control his blood pressure despite maximum therapies patient declined and subsequently on the morning of the 15 of July with family members present. Patient was comatose and completely nonresponsive for 12+ hours prior to his demise and felt to be completely comfortable and unaware of his ongoing process, which is as desired by patient and family Objective Labs 07/13/22 04:10 04/30/23 04:10
--- NOTE | 2022-07-24 14:08 | PC.NURSE ---
Late entry: 07/10/22, 0714: Lorazepam administration documentation not saved to [facility].
== END 2022-07-15 11:20 | disposition expired | DRG 177 ==
LOC: ED 14:19 → AC 15:55 → ICU 16:06
PROVIDERS: Internal Medicine; Internal Medicine Critical Care Medicine; Internal Medicine Pulmonary Disease; Specialist; Admitting Provider Family Medicine; Emergency Provider Emergency Medicine; PCP Internal Medicine; Referring Provider Emergency Medicine; Visit Provider Internal Medicine
DX: U07.1 COVID-19 (principal); J12.82 Pneumonia due to coronavirus disease 2019; J96.01 Acute respiratory failure with hypoxia; E87.1 Hypo-osmolality and hyponatremia; C34.11 Malignant neoplasm of upper lobe, right bronchus or lung; C34.2 Malignant neoplasm of middle lobe, bronchus or lung; C38.4 Malignant neoplasm of pleura; C77.1 Secondary and unspecified malignant neoplasm of intrathoracic lymph nodes; E27.3 Drug-induced adrenocortical insufficiency; I10 Essential (primary) hypertension; G89.3 Neoplasm related pain (acute) (chronic); E11.65 Type 2 diabetes mellitus with hyperglycemia; T38.0X5A Adverse effect of glucocorticoids and synthetic analogues, initial encounter; F41.9 Anxiety disorder, unspecified; K59.00 Constipation, unspecified; Z87.891 Personal history of nicotine dependence; Z66 Do not resuscitate; Z79.52 Long term (current) use of systemic steroids; Z51.12 Encounter for antineoplastic immunotherapy; T45.1X5A Adverse effect of antineoplastic and immunosuppressive drugs, initial encounter
CPT/HCPCS: 36415; 36591; 36600; 71045; 71275; 80048; 80053; 80069; 82805; 82962; 83605; 83735; 83880; 84145; 84443; 84484; 85014; 85025; 85049; 85610; 87040; 87633; 87797; 93005; 93010; 94618; 94640; 94660; 96365; 96366; 96375; 96413; 99215; 99232; 99233; 99238; 99285; 99291; 99292; J1100; J1650; J1815; J1940; J1956; J2060; J2270; J2930; J9271; Q9967